=== PATIENT | male | born 1935 | race Caucasian/White ===

== ENCOUNTER 2020-02-24 10:40 | Outpatient (REF) | payer MEDICARE, SELFPAY | END 2020-02-24 10:41 | disposition home or self-care (01) | LOC: HO.LNP 10:40 | PROVIDERS: Visit Provider Family Medicine | DX: I10 Essential (primary) hypertension (principal) | CPT/HCPCS: 82043 ==

== ENCOUNTER → 2020-02-26 08:00 | Outpatient (BNVA) | payer MEDICARE, SELFPAY | PROVIDERS: PCP Family Medicine; Visit Provider Internal Medicine | DX: I48.91 Unspecified atrial fibrillation (principal); Z51.81 Encounter for therapeutic drug level monitoring; Z79.01 Long term (current) use of anticoagulants | CPT/HCPCS: 85610; 99211 ==

== ENCOUNTER 2020-03-04 09:13 | Outpatient (REF) | payer MEDICARE, SELFPAY | END 2020-03-04 09:14 | disposition home or self-care (01) | LOC: HO.LAB 09:13 | PROVIDERS: PCP Family Medicine; Visit Provider Internal Medicine | DX: Z20.828 Contact with and (suspected) exposure to other viral communicable diseases (principal) | CPT/HCPCS: 87635 ==

== ENCOUNTER → 2020-03-25 07:53 | Outpatient (BNVA) | payer MEDICARE, SELFPAY | PROVIDERS: PCP Family Medicine; Visit Provider Internal Medicine | DX: I48.0 Paroxysmal atrial fibrillation (principal); Z51.81 Encounter for therapeutic drug level monitoring; Z79.01 Long term (current) use of anticoagulants | CPT/HCPCS: 85610; 99211 ==

== ENCOUNTER → 2020-04-07 07:33 | Outpatient (BNVA) | payer MEDICARE, SELFPAY | PROVIDERS: PCP Family Medicine; Referring Provider Family Medicine; Visit Provider Internal Medicine | DX: D35.2 Benign neoplasm of pituitary gland (principal); E29.1 Testicular hypofunction; Z87.438 Personal history of other diseases of male genital organs | CPT/HCPCS: Q3014 ==

== ENCOUNTER 2020-04-08 06:40 | Outpatient (REF) | payer MEDICARE, SELFPAY ==
[2020-04-08 07:41] LABS: Anion Gap 11 (12-20); Blood Urea Nitrogen 26 mg/dL (9-16); Calcium 8.9 mg/dL (8.4-10.2); Carbon Dioxide 32 mmol/L (22-29); Chloride 106 mmol/L (96-108); Estimated Glomerular Filt Rate 44; Glucose Random 156 mg/dL (60-115); Potassium 4.7 mmol/l (3.3-5.1); Sodium 144 mmol/L (135-145)
[2020-04-08 08:07] LABS: Free T4 (Free Thyroxine) 1.26 ng/dL (0.71-1.85); Thyroid Stimulating Hormone 4.32 uIU/mL (0.32-4.0)
[2020-04-09 22:12] LABS: Adrenocorticotropic Hormone 24 pg/mL (6-50)
[2020-04-13 08:32] LABS: Prolactin Undiluted 8.3 ng/mL (2.0-18.0)
[2020-04-14 23:13] LABS: Estradiol Ultra Sensitive 21 pg/mL (< OR = 29)
[2020-04-15 12:27] LABS: Testosterone, Free 25.9 pg/mL (30.0-135.0); Testosterone, Total 202 ng/dL (250-1100)
[2020-04-15 14:48] LABS: IGF-1 (Somatomedin C) 89 ng/mL (34-246); IGF-1 Z Score (Male) -0.2 SD (-2.0 - +2.0)
== END 2020-04-08 06:41 | disposition home or self-care (01) ==
LOC: HO.LAB 06:40
PROVIDERS: PCP Family Medicine; Visit Provider Internal Medicine
DX: D35.2 Benign neoplasm of pituitary gland (principal)
CPT/HCPCS: 80048; 82024; 82533; 82670; 83001; 83002; 84146; 84270; 84305; 84402; 84403; 84439; 84443; 84480

== ENCOUNTER 2020-04-09 06:47 | Outpatient (REF) | payer MEDICARE, SELFPAY ==
[2020-04-10 10:38] LABS: Lutenizing Hormone 30.3 mIU/mL (1.6-15.2); Triiodothyronine T3 Total 69 ng/dL (76-181)
[2020-04-13 02:48] LABS: Sex Hormone Binding Globulin 57 nmol/L (22-77)
== END 2020-04-09 06:48 | disposition home or self-care (01) ==
LOC: HO.LAB 06:47
PROVIDERS: PCP Family Medicine; Visit Provider Internal Medicine
DX: D35.2 Benign neoplasm of pituitary gland (principal)
CPT/HCPCS: 83002; 84270; 84480

== ENCOUNTER → 2020-04-21 08:02 | Outpatient (BNVA) | payer MEDICARE, SELFPAY | PROVIDERS: PCP Family Medicine; Visit Provider Internal Medicine | DX: I48.0 Paroxysmal atrial fibrillation (principal); Z51.81 Encounter for therapeutic drug level monitoring; Z79.01 Long term (current) use of anticoagulants | CPT/HCPCS: 85610; 99211 ==

== ENCOUNTER → 2020-04-28 08:30 | Outpatient (BNVA) | payer MEDICARE, SELFPAY | PROVIDERS: PCP Family Medicine; Visit Provider Internal Medicine | DX: I48.0 Paroxysmal atrial fibrillation (principal); Z51.81 Encounter for therapeutic drug level monitoring; Z79.01 Long term (current) use of anticoagulants | CPT/HCPCS: 85610; 99211 ==

== ENCOUNTER → 2020-05-12 08:22 | Outpatient (BNVA) | payer MEDICARE, SELFPAY | PROVIDERS: PCP Family Medicine; Visit Provider Internal Medicine | DX: I48.91 Unspecified atrial fibrillation (principal); Z51.81 Encounter for therapeutic drug level monitoring; Z79.01 Long term (current) use of anticoagulants | CPT/HCPCS: 85610; 99211 ==

== ENCOUNTER → 2020-05-26 08:56 | Outpatient (BNVA) | payer MEDICARE, SELFPAY | PROVIDERS: PCP Family Medicine; Visit Provider Internal Medicine | DX: I48.0 Paroxysmal atrial fibrillation (principal); Z51.81 Encounter for therapeutic drug level monitoring; Z79.01 Long term (current) use of anticoagulants | CPT/HCPCS: 85610; 99211 ==

== ENCOUNTER → 2020-05-31 13:32 | Outpatient (BNVA) | payer MEDICARE, SELFPAY | PROVIDERS: PCP Family Medicine; Visit Provider Internal Medicine | DX: Z76.89 Persons encountering health services in other specified circumstances (principal) | CPT/HCPCS: Q3014 ==

== ENCOUNTER 2020-06-03 06:34 | Outpatient (REF) | payer MEDICARE, SELFPAY ==
[2020-06-03 08:05] LABS: Free T4 (Free Thyroxine) 1.08 ng/dL (0.71-1.85); Thyroid Stimulating Hormone 1.39 uIU/mL (0.32-4.0)
[2020-06-04 18:27] LABS: Prolactin 5.4 ng/mL (2.0-18.0); Triiodothyronine T3 Total 77 ng/dL (76-181)
[2020-06-04 22:02] LABS: Sex Hormone Binding Globulin 61 nmol/L (22-77)
[2020-06-04 23:56] LABS: Adrenocorticotropic Hormone <5 pg/mL (6-50)
[2020-06-07 18:28] LABS: Testosterone, Free 21.9 pg/mL (30.0-135.0); Testosterone, Total 235 ng/dL (250-1100)
[2020-06-09 10:22] LABS: Dexamethasone 499 ng/dL
== END 2020-06-03 06:35 | disposition home or self-care (01) ==
LOC: HO.LAB 06:34
PROVIDERS: PCP Family Medicine; Visit Provider Internal Medicine
DX: R79.89 Other specified abnormal findings of blood chemistry (principal); E03.9 Hypothyroidism, unspecified; D35.2 Benign neoplasm of pituitary gland; E29.1 Testicular hypofunction
CPT/HCPCS: 36415; 80299; 82024; 82533; 84146; 84270; 84402; 84403; 84439; 84443; 84480

== ENCOUNTER → 2020-06-04 07:59 | Outpatient (BNVA) | payer MEDICARE, SELFPAY | PROVIDERS: PCP Family Medicine; Visit Provider Internal Medicine | DX: I48.0 Paroxysmal atrial fibrillation (principal); Z51.81 Encounter for therapeutic drug level monitoring; Z79.01 Long term (current) use of anticoagulants | CPT/HCPCS: 85610; 99211 ==

== ENCOUNTER → 2020-06-18 07:57 | Outpatient (BNVA) | payer MEDICARE, SELFPAY | PROVIDERS: PCP Family Medicine; Visit Provider Internal Medicine | DX: I48.0 Paroxysmal atrial fibrillation (principal); Z51.81 Encounter for therapeutic drug level monitoring; Z79.01 Long term (current) use of anticoagulants | CPT/HCPCS: 85610; 99211 ==

== ENCOUNTER → 2020-07-02 07:59 | Outpatient (BNVA) | payer MEDICARE, SELFPAY | PROVIDERS: PCP Family Medicine; Visit Provider Internal Medicine | DX: I48.0 Paroxysmal atrial fibrillation (principal); Z51.81 Encounter for therapeutic drug level monitoring; Z79.01 Long term (current) use of anticoagulants | CPT/HCPCS: 85610; 99211 ==

== ENCOUNTER → 2020-07-23 08:00 | Outpatient (BNVA) | payer MEDICARE, SELFPAY | PROVIDERS: PCP Family Medicine; Visit Provider Internal Medicine | DX: I48.0 Paroxysmal atrial fibrillation (principal); Z51.81 Encounter for therapeutic drug level monitoring; Z79.01 Long term (current) use of anticoagulants | CPT/HCPCS: 85610; 99211 ==

== ENCOUNTER 2020-07-23 15:29 | Outpatient (REF) | payer MEDICARE, SELFPAY | END 2020-07-23 15:30 | disposition home or self-care (01) | LOC: HO.LAB 15:29 | PROVIDERS: Visit Provider Internal Medicine | DX: Z20.822 Contact with and (suspected) exposure to COVID-19 (principal) | CPT/HCPCS: 36415; C9803; U0003; U0005 ==

== ENCOUNTER → 2020-08-02 07:35 | Outpatient (BNVA) | payer MEDICARE, SELFPAY | PROVIDERS: PCP Family Medicine; Visit Provider Internal Medicine | DX: Z13.89 Encounter for screening for other disorder (principal) | CPT/HCPCS: Q3014 ==

== ENCOUNTER 2020-08-06 06:31 | Outpatient (REF) | payer MEDICARE, SELFPAY ==
[2020-08-09 15:12] LABS: Adrenocorticotropic Hormone 34 pg/mL (6-50)
[2020-08-10 21:02] LABS: Dexamethasone <20 ng/dL
== END 2020-08-06 06:32 | disposition home or self-care (01) ==
LOC: HO.LAB 06:31
PROVIDERS: PCP Family Medicine; Visit Provider Internal Medicine
DX: E24.0 Pituitary-dependent Cushing's disease (principal)
CPT/HCPCS: 36415; 80299; 82024; 82533

== ENCOUNTER 2020-08-07 07:02 | Outpatient (REF) | payer MEDICARE, SELFPAY ==
[2020-08-09 15:12] LABS: Adrenocorticotropic Hormone <5 pg/mL (6-50)
== END 2020-08-07 07:03 | disposition home or self-care (01) ==
LOC: HO.LAB 07:02
PROVIDERS: Internal Medicine; PCP Family Medicine; Visit Provider Family Medicine
DX: E24.0 Pituitary-dependent Cushing's disease (principal)
CPT/HCPCS: 36415; 82024; 82533

== ENCOUNTER → 2020-08-13 08:00 | Outpatient (BNVA) | payer MEDICARE, SELFPAY | PROVIDERS: PCP Family Medicine; Visit Provider Internal Medicine | DX: I48.0 Paroxysmal atrial fibrillation (principal); Z79.01 Long term (current) use of anticoagulants; Z51.81 Encounter for therapeutic drug level monitoring | CPT/HCPCS: 85610; 99211 ==

== ENCOUNTER 2020-09-02 06:43 | Outpatient (REF) | payer MEDICARE, SELFPAY ==
[2020-09-02 07:58] LABS: Alanine Aminotransferase 21 U/L (0-40); Albumin Level 4.1 g/dL (3.5-5.0); Alkaline Phosphatase 99 U/L (39-117); Anion Gap 11 (12-20); Aspartate Amino Transferase 19 U/L (5-37); Bilirubin Total 0.5 mg/dL (0.0-1.0); Blood Urea Nitrogen 28 mg/dL (9-16); Calcium 9.4 mg/dL (8.4-10.2); Carbon Dioxide 29 mmol/L (22-29); Chloride 108 mmol/L (96-108); Cholesterol 151 mg/dL; Estimated Glomerular Filt Rate 46; Glucose Fasting 158 mg/dL (60-99); HDL Cholesterol 34 mg/dL; LDL Cholesterol Calculated 93 mg/dl; Potassium 4.4 mmol/L (3.3-5.1); Sodium 144 mmol/L (135-145); Total Protein 6.7 g/dL (6.5-8.0); Triglycerides 124 mg/dL
[2020-09-02 08:04] LABS: TSH reflex Free T4 1.35 uIU/mL (0.32-4.0)
[2020-09-02 09:54] LABS: Creatinine Urine 167.04 mg/dL; Microalbum/Creatinine Ratio Ur 49.6 ug/mg cr
== END 2020-09-02 06:44 | disposition home or self-care (01) ==
LOC: HO.LAB 06:43
PROVIDERS: PCP Family Medicine; Visit Provider Family Medicine
DX: Z00.00 Encounter for general adult medical examination without abnormal findings (principal); I10 Essential (primary) hypertension
CPT/HCPCS: 36415; 80053; 80061; 82043; 84443

== ENCOUNTER → 2020-09-13 08:30 | Outpatient (BNVA) | payer MEDICARE, SELFPAY | PROVIDERS: PCP Family Medicine; Visit Provider Internal Medicine | DX: I48.0 Paroxysmal atrial fibrillation (principal); Z79.01 Long term (current) use of anticoagulants; Z51.81 Encounter for therapeutic drug level monitoring | CPT/HCPCS: 85610; 99211 ==

== ENCOUNTER → 2020-09-23 13:34 | Outpatient (BNVA) | payer MEDICARE, SELFPAY | PROVIDERS: PCP Family Medicine; Referring Provider Family Medicine; Visit Provider Internal Medicine Cardiovascular Disease | DX: I48.91 Unspecified atrial fibrillation (principal); I10 Essential (primary) hypertension; Z79.899 Other long term (current) drug therapy | CPT/HCPCS: 93005; 99212 ==

== ENCOUNTER → 2020-10-12 09:22 | Outpatient (BNVA) | payer MEDICARE, SELFPAY | PROVIDERS: PCP Family Medicine; Visit Provider Urology | DX: N52.9 Male erectile dysfunction, unspecified (principal); Z87.438 Personal history of other diseases of male genital organs; Z87.898 Personal history of other specified conditions | CPT/HCPCS: 99212 ==

== ENCOUNTER → 2020-10-19 09:01 | Outpatient (BNVA) | payer MEDICARE, SELFPAY | PROVIDERS: PCP Family Medicine; Visit Provider Internal Medicine | DX: I48.0 Paroxysmal atrial fibrillation (principal); Z51.81 Encounter for therapeutic drug level monitoring; Z79.01 Long term (current) use of anticoagulants | CPT/HCPCS: 85610; 99211 ==

== ENCOUNTER → 2020-11-16 08:04 | Outpatient (BNVA) | payer MEDICARE, SELFPAY | PROVIDERS: PCP Family Medicine; Visit Provider Internal Medicine | DX: I48.0 Paroxysmal atrial fibrillation (principal); Z51.81 Encounter for therapeutic drug level monitoring; Z79.01 Long term (current) use of anticoagulants | CPT/HCPCS: 85610; 99211 ==

== ENCOUNTER → 2020-11-18 07:22 | Outpatient (BNVA) | payer MEDICARE, SELFPAY | PROVIDERS: PCP Family Medicine; Visit Provider Internal Medicine | DX: Z13.89 Encounter for screening for other disorder (principal) | CPT/HCPCS: Q3014 ==

== ENCOUNTER 2020-11-20 08:28 | Outpatient (REF) | payer MEDICARE, SELFPAY ==
[2020-11-20 10:13] LABS: Creatinine, mg/dL 94.08
[2020-11-20 14:26] LABS: Creatinine, 24Hr Urine 0.8 G/Day (1.0-2.0); Total Volume 24 Hour Urine 800 mL
[2020-11-24 11:22] LABS: Total Volume, 24 Hr Urine 800
[2020-11-24 21:21] LABS: Cortisol Free, 24 Hr Urine 8.1 mcg/24 h (4.0-50.0); Creatinine, 24 Hr Urine 0.75 g/24 h (0.50-2.15)
[2020-11-25 22:07] LABS: Saliva Cortisol 0.05 mcg/dL
== END 2020-11-20 08:29 | disposition home or self-care (01) ==
LOC: HO.LNP 08:28
PROVIDERS: Visit Provider Internal Medicine
DX: E24.0 Pituitary-dependent Cushing's disease (principal)
CPT/HCPCS: 82530; 82570

== ENCOUNTER → 2020-12-13 12:26 | Outpatient (BNVA) | payer MEDICARE, SELFPAY | PROVIDERS: PCP Family Medicine; Visit Provider Nurse Practitioner Family | DX: I48.91 Unspecified atrial fibrillation (principal); I25.10 Atherosclerotic heart disease of native coronary artery without angina pectoris; I35.0 Nonrheumatic aortic (valve) stenosis; I10 Essential (primary) hypertension; R60.9 Edema, unspecified; Z98.890 Other specified postprocedural states; Z79.01 Long term (current) use of anticoagulants | CPT/HCPCS: 99212 ==

== ENCOUNTER → 2020-12-14 07:58 | Outpatient (BNVA) | payer MEDICARE, SELFPAY | PROVIDERS: PCP Family Medicine; Visit Provider Internal Medicine | DX: I48.0 Paroxysmal atrial fibrillation (principal); Z51.81 Encounter for therapeutic drug level monitoring; Z79.01 Long term (current) use of anticoagulants | CPT/HCPCS: 85610; 99211 ==

== ENCOUNTER 2020-12-24 15:24 | Outpatient (REF) | payer MEDICARE, SELFPAY | END 2020-12-24 15:25 | disposition home or self-care (01) | LOC: HO.LAB 15:24 | PROVIDERS: PCP Family Medicine; Visit Provider Internal Medicine | DX: Z20.822 Contact with and (suspected) exposure to COVID-19 (principal) | CPT/HCPCS: C9803; U0003; U0005 ==

== ENCOUNTER → 2021-01-11 08:14 | Outpatient (BNVA) | payer MEDICARE, SELFPAY | PROVIDERS: PCP Family Medicine; Visit Provider Internal Medicine | DX: I48.0 Paroxysmal atrial fibrillation (principal); Z51.81 Encounter for therapeutic drug level monitoring; Z79.01 Long term (current) use of anticoagulants | CPT/HCPCS: 85610; 99211 ==

== ENCOUNTER → 2021-02-08 07:59 | Outpatient (BNVA) | payer MEDICARE, SELFPAY | PROVIDERS: PCP Family Medicine; Visit Provider Internal Medicine | DX: I48.0 Paroxysmal atrial fibrillation (principal); Z51.81 Encounter for therapeutic drug level monitoring; Z79.01 Long term (current) use of anticoagulants | CPT/HCPCS: 85610; 99211 ==

== ENCOUNTER → 2021-02-24 12:31 | Outpatient (BNVA) | payer MEDICARE, SELFPAY | PROVIDERS: PCP Family Medicine; Visit Provider Internal Medicine | DX: E29.1 Testicular hypofunction (principal); E03.9 Hypothyroidism, unspecified; E24.0 Pituitary-dependent Cushing's disease; D35.2 Benign neoplasm of pituitary gland; Z87.438 Personal history of other diseases of male genital organs | CPT/HCPCS: 99212 ==

== ENCOUNTER 2021-02-27 | Outpatient (REF) | payer MEDICARE, SELFPAY ==
[2021-03-04 19:57] LABS: Saliva Cortisol 0.11 mcg/dL
== END 2021-02-27 00:01 | disposition home or self-care (01) ==
LOC: HO.LNP
PROVIDERS: Visit Provider Internal Medicine
DX: E24.0 Pituitary-dependent Cushing's disease (principal)
CPT/HCPCS: 82530

== ENCOUNTER → 2021-03-08 07:56 | Outpatient (BNVA) | payer MEDICARE, SELFPAY | PROVIDERS: PCP Family Medicine; Visit Provider Internal Medicine | DX: I48.0 Paroxysmal atrial fibrillation (principal); Z51.81 Encounter for therapeutic drug level monitoring; Z79.01 Long term (current) use of anticoagulants | CPT/HCPCS: 85610; 99211 ==

== ENCOUNTER 2021-03-16 10:08 | Outpatient (REF) | payer MEDICARE, SELFPAY | END 2021-03-16 10:09 | disposition home or self-care (01) | LOC: HO.LAB 10:08 | PROVIDERS: Visit Provider Internal Medicine | DX: Z13.89 Encounter for screening for other disorder (principal) ==

== ENCOUNTER 2021-03-20 | Outpatient (REF) | payer MEDICARE, SELFPAY ==
[2021-03-26 19:12] LABS: Saliva Cortisol <0.03 mcg/dL
== END 2021-03-20 00:01 | disposition home or self-care (01) ==
LOC: HO.LNP
PROVIDERS: Visit Provider Internal Medicine
DX: E24.0 Pituitary-dependent Cushing's disease (principal)
CPT/HCPCS: 82530

== ENCOUNTER → 2021-03-24 14:24 | Outpatient (BNVA) | payer MEDICARE, SELFPAY | PROVIDERS: PCP Family Medicine; Referring Provider Family Medicine; Visit Provider Internal Medicine Cardiovascular Disease | DX: I48.91 Unspecified atrial fibrillation (principal); R60.9 Edema, unspecified | CPT/HCPCS: 93005; 99212 ==

== ENCOUNTER 2021-03-25 07:20 | Outpatient (REF) | payer MEDICARE, SELFPAY | END 2021-03-25 07:21 | disposition home or self-care (01) | LOC: HO.WFDLDS 07:20 | PROVIDERS: Visit Provider Urology | DX: Z12.5 Encounter for screening for malignant neoplasm of prostate (principal); N40.1 Benign prostatic hyperplasia with lower urinary tract symptoms; N13.8 Other obstructive and reflux uropathy | CPT/HCPCS: 36415; 84153 ==

== ENCOUNTER 2021-04-05 08:29 | Outpatient (REF) | payer MEDICARE, SELFPAY ==
--- NOTE | ~2021-04-05 | CT_ITS ---
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 Axial MIP volume rendering provided. Sagittal and coronal reformatted images were obtained. This CT examination was performed using dose optimization techniques as appropriate, variously including the following: *Automated exposure control *Adjustment of mA and/or kV according to patient size (this includes techniques or standardized protocols for targeted exams where dose is matched to indication/reason for exam; i.e. 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 LUNGS: There is evidence of mild paraseptal emphysema. There is a 3 mm right upper lobe nodule axial image 35 series 6. There is a 2 mm noncalcified left upper lobe nodule axial image 45 series 6. There is a 2 mm noncalcified right upper lobe nodule axial image 48 series 6. There is a 2 mm right upper lobe nodule axial image 66 series 6. There is a 3 mm calcified superior segment right lower lobe nodule axial image 70 series 6. There is an 8 mm calcified left upper lobe nodule axial image 72 series 6. There is an adjacent 2 mm calcified left upper lobe nodule axial image 78 series 6. There is a 4 mm peripheral or subpleural noncalcified right middle lobe nodule axial image 94 series 6. There is a 3 mm noncalcified left lower lobe nodule axial image 69 series 6. Pulmonary nodules are stable. The previously identified areas of bronchial wall thickening and airspace disease on July 2016 exam have resolved. MEDIASTINUM: There is bilateral hilar and mediastinal lymphadenopathy. This appears slightly increased from previous exam. Largest lymph nodes are in the right paratracheal and right hilar regions and are upper normal in size. There is a calcified left hilar lymph node that is stable. The heart does not appear enlarged. There is coronary artery calcification. There is a small pericardial effusion. The thoracic aorta is normal in caliber. PLEURA: There is no pleural effusion. No pleural mass or thickening. AXILLA: No lymphadenopathy. UPPER ABDOMEN: There are multiple bilateral renal cysts. There is fullness and nodularity of both adrenal glands. There are gallstones in the gallbladder. OSSEOUS STRUCTURES: There are degenerative changes of the spine. CT/CT chest w con IMPRESSION: Evidence of old granulomatous disease. Stable calcified and noncalcified pulmonary nodules. Upper normal-size bilateral hilar and mediastinal lymph nodes, slightly increased from 2017. Elevated right hemidiaphragm. Coronary artery calcification. Gallstones. Bilateral renal cysts. Nodular appearing bilateral adrenal glands. Fleischner guidelines were followed.
[2021-04-05 09:33] LABS: Estimated Average Glucose 171 mg/dL; Hemoglobin A1c % 7.6 %
[2021-04-05 10:02] LABS: Alanine Aminotransferase 28 U/L (0-40); Albumin Level 4.3 g/dL (3.5-5.0); Alkaline Phosphatase 113 U/L (39-117); Anion Gap 13 (12-20); Aspartate Amino Transferase 23 U/L (5-37); Blood Urea Nitrogen 36 mg/dL (9-16); Carbon Dioxide 30 mmol/L (22-29); Chloride 105 mmol/L (96-108); Estimated Glomerular Filt Rate 40; Glucose Fasting 166 mg/dL (60-99); Potassium 4.3 mmol/L (3.3-5.1); Sodium 144 mmol/L (135-145)
[2021-04-05] MEDS: iohexoL 350 MG/ML 100 ML INFUS..BTL IV (10:47)
== END 2021-04-05 08:30 | disposition home or self-care (01) ==
LOC: HO.CT 08:29
PROVIDERS: Family Medicine; Visit Provider Internal Medicine
DX: Z00.00 Encounter for general adult medical examination without abnormal findings (principal); I48.0 Paroxysmal atrial fibrillation; R73.01 Impaired fasting glucose; E24.0 Pituitary-dependent Cushing's disease; Z51.81 Encounter for therapeutic drug level monitoring; Z79.01 Long term (current) use of anticoagulants
CPT/HCPCS: 36415; 71260; 80053; 83036; 85610; 99211; Q9967

== ENCOUNTER → 2021-04-12 08:22 | Outpatient (BNVA) | payer MEDICARE, SELFPAY | PROVIDERS: PCP Family Medicine; Visit Provider Internal Medicine | DX: I48.0 Paroxysmal atrial fibrillation (principal); Z51.81 Encounter for therapeutic drug level monitoring; Z79.01 Long term (current) use of anticoagulants | CPT/HCPCS: 85610; 99211 ==

== ENCOUNTER → 2021-04-15 14:18 | Outpatient (BNVA) | payer MEDICARE, SELFPAY | PROVIDERS: PCP Family Medicine; Visit Provider Internal Medicine | DX: I48.0 Paroxysmal atrial fibrillation (principal); Z51.81 Encounter for therapeutic drug level monitoring; Z79.01 Long term (current) use of anticoagulants | CPT/HCPCS: 85610; 99211 ==

== ENCOUNTER → 2021-04-19 08:20 | Outpatient (BNVA) | payer MEDICARE, SELFPAY | PROVIDERS: PCP Family Medicine; Visit Provider Internal Medicine | DX: I48.0 Paroxysmal atrial fibrillation (principal); Z51.81 Encounter for therapeutic drug level monitoring; Z79.01 Long term (current) use of anticoagulants | CPT/HCPCS: 85610; 99211 ==

== ENCOUNTER → 2021-04-21 09:50 | Outpatient (BNVA) | payer MEDICARE, SELFPAY | PROVIDERS: PCP Family Medicine; Visit Provider Urology | DX: N40.1 Benign prostatic hyperplasia with lower urinary tract symptoms (principal); N13.8 Other obstructive and reflux uropathy; N52.1 Erectile dysfunction due to diseases classified elsewhere; E11.69 Type 2 diabetes mellitus with other specified complication | CPT/HCPCS: Q3014 ==

== ENCOUNTER 2021-04-25 08:12 | Outpatient (REF) | payer MEDICARE, SELFPAY ==
[2021-04-25 12:00] LABS: COVID-19 Test Negative (Negative)
== END 2021-04-25 08:13 | disposition home or self-care (01) ==
LOC: HO.LAB 08:12
PROVIDERS: Visit Provider Internal Medicine
DX: Z20.822 Contact with and (suspected) exposure to COVID-19 (principal)
CPT/HCPCS: 36415; 87635; C9803

== ENCOUNTER → 2021-05-03 07:58 | Outpatient (BNVA) | payer MEDICARE, SELFPAY | PROVIDERS: PCP Family Medicine; Visit Provider Internal Medicine | DX: I48.0 Paroxysmal atrial fibrillation (principal); Z51.81 Encounter for therapeutic drug level monitoring; Z79.01 Long term (current) use of anticoagulants | CPT/HCPCS: 85610; 99211 ==

== ENCOUNTER → 2021-05-12 09:50 | Outpatient (REF) | payer MEDICARE, SELFPAY ==
--- NOTE | 2021-05-12 09:58 | CA_ITS ---
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 Normal LV systolic function with suggestion of increased LVEDP 2. Moderately dilated left atrium 3. [id number] aortic stenosis 4. Normal calculated RV systolic pressure 5. No gross pericardial effusion Findings Left Ventricle Normal left ventricular size and systolic function. There is mildly increased left ventricular wall thickness. The visually estimated ejection fraction is between 55-60%. Elevated left ventricular end diastolic pressure. Right Ventricle Normal right ventricular cavity size and systolic function. Atria The left atrium is moderately dilated. There is no evidence of interatrial shunt. The right atrium is moderately dilated. Aortic Valve There is mild calcification of the aortic valve. There is mild to moderate aortic valve stenosis. The peak aortic gradient is 16 mmHg.The mean gradient is 9 mmHg. The aortic valve area is 1.45 cm2. There is no aortic valve regurgitation. Mitral Valve There is mild anterior and moderate posterior mitral leaflet thickening. There is mild mitral annular calcification. There is mild mitral valve regurgitation. There is no mitral valve stenosis. Pulmonic Valve The pulmonic valve was not well visualized. Tricuspid Valve Likely normal tricuspid valve structure and function. There is mild tricuspid valve regurgitation. The right ventricular systolic pressure is normal. The right ventricular systolic pressure is 29 mmHg. Normal right atrial pressure. There is no evidence of pulmonary hypertension. Great Vessels All visible segments of the aorta are normal in size. The pulmonary artery was not well visualized. Venous The inferior vena cava is normal in size and collapses greater than 50% with inspiration. Pericardium/Pleural There is a trivial loculated pericardial effusion overlying the left ventricle. Prior Study Comparison Changes noted compared to prior study dated: 03/06/2019. RV systolic pressure is normal on this study Measurements 2D Linear Measurements IVSd: 1.22 0.6-0.9/0.6-1.0 cm LVIDd: 4.01 3.9-5.3/4.2-5.9 cm LVIDd Index: 2.17 2.4-3.2/2.2-3.1 cm/m2 LVIDs: 2.17 2.0-3.6 cm LVPWd: 1.30 0.7-1.1 cm Ao Root: 3.00 2.1-3.5 cm LA Diam: 4.30 2.7-3.8/3.0-4.0 cm LAIDs Index: 2.32 1.5-2.3 cm/m2 LV Mass: 222.52 67-162/88-224 g LV Mass Index: 120.28 43-95/49-115 g/m2 LVOT Diam: 2.00 3.0+(-)1.3 cm 2D Systolic Function EF 4C: 59.00 >55% EF 2C: 55.30 >55% EF BiP: 57.90 >55% Mitral Valve MV Pk E: 1.06 MV PK A: 0.36 MV Decel Time: 194.00 E/A: 2.90 E'Lateral: 7.29 E'Medial: 5.66 E/E' Med: 18.70 E/E' Lat: 14.50 PHT: 57.00 MVA PHT: 3.86 Decel Henderson: 5.46 Aortic Valve AoV Pk Avelino: 2.02 AoV Mn Avelino: 1.39 AoV VTI: 0.52 AoV Pk Grad: 16.00 Aov Mn Grad: 9.00 RASHID Cont.VTI: 1.45 LVOT LVOT Pk Avelino: 0.84 LVOT Mn Avelino: 0.67 LVOT VTI: 0.24 LVOT Pk Grad: 3.00 LVOT Mn Grad: 2.00 LVOT Diam: 2.00 LVOT Area: 3.14 Diastolic Function MV Pk E: 1.06 MV Pk A: 0.36 E/A: 2.90 E'Medial: 5.66 E/E' Med: 18.70 E' Laterial: 7.29 E/E' Lat: 14.50 Right Ventricle TAPSE (mm): 16.60 TVS' Avelino: 9.36 Tricuspid Valve TR Pk Avelino: 2.54 TR Pk Grad: 26.00 RA Press: 3.00 RVSP: 29.00 Great Vessels Aorta Ao Root-2D: 3.00 2.0-3.7 cm Ao Asc: 3.00 2.1-3.4 cm Ao Arch: 2.90 Updated in Other Vendor System with Status of Final Clifton Mota MD electronically signed on 05/12/2021 2:01:56 PM with status of Final
== END ==
LOC: HO.CARD 09:50
PROVIDERS: Visit Provider Nurse Practitioner Family
DX: I35.0 Nonrheumatic aortic (valve) stenosis (principal); I25.10 Atherosclerotic heart disease of native coronary artery without angina pectoris
CPT/HCPCS: 93306

== ENCOUNTER → 2021-05-17 07:58 | Outpatient (BNVA) | payer MEDICARE, SELFPAY | PROVIDERS: PCP Family Medicine; Visit Provider Internal Medicine | DX: I48.0 Paroxysmal atrial fibrillation (principal); Z51.81 Encounter for therapeutic drug level monitoring; Z79.01 Long term (current) use of anticoagulants | CPT/HCPCS: 85610; 99211 ==

== ENCOUNTER → 2021-05-26 13:45 | Outpatient (BNVA) | payer MEDICARE, SELFPAY | PROVIDERS: PCP Family Medicine; Visit Provider Hospitalist | DX: R91.8 Other nonspecific abnormal finding of lung field (principal); J98.6 Disorders of diaphragm | CPT/HCPCS: 99202 ==

== ENCOUNTER → 2021-05-31 08:00 | Outpatient (BNVA) | payer MEDICARE, SELFPAY | PROVIDERS: PCP Family Medicine; Visit Provider Internal Medicine | DX: I48.0 Paroxysmal atrial fibrillation (principal); Z51.81 Encounter for therapeutic drug level monitoring; Z79.01 Long term (current) use of anticoagulants | CPT/HCPCS: 85610; 99211 ==

== ENCOUNTER 2021-05-31 12:41 | Outpatient (REF) | payer MEDICARE, SELFPAY ==
[2021-05-31 13:19] LABS: Binax Internal Control QC Valid; Binax Now Covid-19 Ag Negative (Negative)
== END 2021-05-31 12:42 | disposition home or self-care (01) ==
LOC: HO.LAB 12:41
PROVIDERS: Visit Provider Internal Medicine
DX: Z20.822 Contact with and (suspected) exposure to COVID-19 (principal)
CPT/HCPCS: C9803

== ENCOUNTER 2021-06-08 06:37 | Outpatient (REF) | payer MEDICARE, SELFPAY ==
[2021-06-08 07:05] LABS: MANUAL DIFF FLAG NO
[2021-06-08 07:08] LABS: Basophils Percent Auto 0.5 % (0-2); Eosinophils Absolute Auto 0.3 X10*3/uL (0.0-0.4); Eosinophils Percent Auto 3.5 % (0-4); Hematocrit 38.4 % (42.0-52.0); Hemoglobin 12.9 g/dl (14.0-18.0); Imm Gran Abs Auto 0.02 X10*3/uL (0.00-0.03); Imm Gran Pct Auto 0.3 % (0.0-0.4); Lymphocytes Absolute Auto 1.4 X10*3/uL (1.2-4.9); Mean Corpuscular HGB Conc 33.6 g/dl (31.0-36.0); Mean Corpuscular Hemoglobin 35.3 pg (27.0-33.0); Mean Corpuscular Volume 105.2 fL (80.0-98.0); Mean Platelet Volume 11.5 fL (9.4-12.4); Monocytes Absolute Auto 0.6 X10*3/uL (0.1-1.2); Monocytes Percent Auto 7.5 % (2-11); Neutrophils Absolute Auto 5.1 x10*3/uL (2.0-8.3); Neutrophils Percent Auto 69.2 % (45-73); Platelet Count 159 X10*3/uL (160-400); Red Blood Count 3.65 X10*6/uL (4.60-5.80); Red Cell Distribution Width 13.2 % (11.0-16.0); White Blood Count 7.4 X10*3/uL (4.8-10.8)
[2021-06-08 07:26] LABS: Anion Gap 10 (12-20); Blood Urea Nitrogen 36 mg/dL (9-16); Calcium 9.5 mg/dL (8.4-10.2); Carbon Dioxide 31 mmol/L (22-29); Chloride 107 mmol/L (96-108); Estimated Glomerular Filt Rate 43; Glucose Random 172 mg/dL (60-115); Potassium 4.4 mmol/L (3.3-5.1); Sodium 144 mmol/L (135-145)
[2021-06-08 08:27] LABS: Cortisol Random 17.8 ug/dL
[2021-06-08 08:31] LABS: Erythrocyte Sedimentation Rate 13 MM/HR (0-15)
[2021-06-09 17:52] LABS: Adrenocorticotropic Hormone 30 pg/mL (6-50)
[2021-06-10 03:12] LABS: DHEA Sulfate 18 mcg/dL (5-253)
[2021-06-11 19:56] LABS: TS Negative Control Passed; TS Panel A 5; TS Panel B 15; TS Positive Control Passed; TSpotTB Positive (Negative)
[2021-06-14 21:25] LABS: Angiotensin Converting Enzyme <5 U/L (9-67)
== END 2021-06-08 06:38 | disposition home or self-care (01) ==
LOC: HO.LAB 06:37
PROVIDERS: Hospitalist; PCP Family Medicine; Visit Provider Internal Medicine
DX: Z11.1 Encounter for screening for respiratory tuberculosis (principal); E24.0 Pituitary-dependent Cushing's disease; R91.8 Other nonspecific abnormal finding of lung field
CPT/HCPCS: 36415; 80048; 82024; 82164; 82533; 82627; 85025; 85652; 86481

== ENCOUNTER 2021-06-09 08:33 | Outpatient (REF) | payer MEDICARE, SELFPAY ==
[2021-06-15 13:48] LABS: Saliva Cortisol 0.03 mcg/dL
== END 2021-06-09 08:34 | disposition home or self-care (01) ==
LOC: HO.LNP 08:33
PROVIDERS: Visit Provider Internal Medicine
DX: E24.0 Pituitary-dependent Cushing's disease (principal)
CPT/HCPCS: 82530

== ENCOUNTER → 2021-06-15 12:19 | Outpatient (BNVA) | payer MEDICARE, SELFPAY | PROVIDERS: PCP Family Medicine; Visit Provider Internal Medicine | DX: E24.0 Pituitary-dependent Cushing's disease (principal); E29.1 Testicular hypofunction; E03.9 Hypothyroidism, unspecified; D35.2 Benign neoplasm of pituitary gland; Z87.438 Personal history of other diseases of male genital organs | CPT/HCPCS: Q3014 ==

== ENCOUNTER → 2021-06-16 08:03 | Outpatient (BNVA) | payer MEDICARE, SELFPAY | PROVIDERS: PCP Family Medicine; Visit Provider Internal Medicine | DX: I48.0 Paroxysmal atrial fibrillation (principal); Z51.81 Encounter for therapeutic drug level monitoring; Z79.01 Long term (current) use of anticoagulants | CPT/HCPCS: 85610; 99211 ==

== ENCOUNTER → 2021-06-24 09:17 | Outpatient (BNVA) | payer MEDICARE, SELFPAY | PROVIDERS: PCP Family Medicine; Visit Provider Internal Medicine | DX: I48.0 Paroxysmal atrial fibrillation (principal); Z51.81 Encounter for therapeutic drug level monitoring; Z79.01 Long term (current) use of anticoagulants | CPT/HCPCS: 85610; 99211 ==

== ENCOUNTER 2021-06-28 08:46 | Outpatient (REF) | payer MEDICARE, SELFPAY ==
[2021-06-28 09:27] LABS: COVID-19 Test Negative (Negative)
== END 2021-06-28 08:47 | disposition home or self-care (01) ==
LOC: HO.LAB 08:46
PROVIDERS: PCP Family Medicine; Visit Provider Internal Medicine
DX: Z20.822 Contact with and (suspected) exposure to COVID-19 (principal)
CPT/HCPCS: 87635; C9803

== ENCOUNTER → 2021-07-08 08:43 | Outpatient (BNVA) | payer MEDICARE, SELFPAY | PROVIDERS: PCP Family Medicine; Visit Provider Internal Medicine | DX: I48.0 Paroxysmal atrial fibrillation (principal); Z51.81 Encounter for therapeutic drug level monitoring; Z79.01 Long term (current) use of anticoagulants | CPT/HCPCS: 85610; 99211 ==

== ENCOUNTER → 2021-07-22 08:17 | Outpatient (BNVA) | payer MEDICARE, SELFPAY | PROVIDERS: PCP Family Medicine; Visit Provider Internal Medicine | DX: I48.0 Paroxysmal atrial fibrillation (principal); Z79.01 Long term (current) use of anticoagulants; Z51.81 Encounter for therapeutic drug level monitoring | CPT/HCPCS: 85610; 99211 ==

== ENCOUNTER → 2021-08-12 08:15 | Outpatient (BNVA) | payer MEDICARE, SELFPAY | PROVIDERS: PCP Family Medicine; Visit Provider Internal Medicine | DX: I48.0 Paroxysmal atrial fibrillation (principal); Z51.81 Encounter for therapeutic drug level monitoring; Z79.01 Long term (current) use of anticoagulants | CPT/HCPCS: 85610; 99211 ==

== ENCOUNTER → 2021-09-02 07:59 | Outpatient (BNVA) | payer MEDICARE, SELFPAY | PROVIDERS: PCP Family Medicine; Visit Provider Internal Medicine | DX: I48.0 Paroxysmal atrial fibrillation (principal); Z79.01 Long term (current) use of anticoagulants; Z51.81 Encounter for therapeutic drug level monitoring | CPT/HCPCS: 85610; 99211 ==

== ENCOUNTER → 2021-09-16 08:01 | Outpatient (BNVA) | payer MEDICARE, SELFPAY | PROVIDERS: PCP Family Medicine; Visit Provider Internal Medicine | DX: I48.0 Paroxysmal atrial fibrillation (principal); Z79.01 Long term (current) use of anticoagulants; Z51.81 Encounter for therapeutic drug level monitoring | CPT/HCPCS: 85610; 99211 ==

== ENCOUNTER 2021-09-23 06:44 | Outpatient (REF) | payer MEDICARE, SELFPAY ==
[2021-09-23 08:01] LABS: Anion Gap 11 (12-20); Blood Urea Nitrogen 27 mg/dL (9-16); Calcium 9.4 mg/dL (8.4-10.2); Carbon Dioxide 31 mmol/L (22-29); Chloride 108 mmol/L (96-108); Estimated Glomerular Filt Rate 55; Glucose Random 134 mg/dL (60-115); Potassium 4.5 mmol/L (3.3-5.1); Sodium 145 mmol/L (135-145)
[2021-09-23 08:25] LABS: Prostate Specific Antigen 1.66 ng/mL (<0.05-4.0)
[2021-09-23 08:40] LABS: Cortisol Random 18.9 ug/dL
[2021-09-24 08:51] LABS: Follicle Stimulating Hormone 51.6 mIU/mL (1.6-8.0); Lutenizing Hormone 28.7 mIU/mL (1.6-15.2); Prolactin 5.9 ng/mL (2.0-18.0); Sex Hormone Binding Globulin 56 nmol/L (22-77); Triiodothyronine T3 Total 81 ng/dL (76-181)
[2021-09-26 21:56] LABS: Adrenocorticotropic Hormone 14 pg/mL (6-50)
[2021-09-28 10:27] LABS: IGF-1 (Somatomedin C) 102 ng/mL (34-246)
[2021-09-28 15:22] LABS: Testosterone, Free 26.5 pg/mL (30.0-135.0); Testosterone, Total 273 ng/dL (250-1100)
== END 2021-09-23 06:45 | disposition home or self-care (01) ==
LOC: HO.LAB 06:44
PROVIDERS: Urology; PCP Family Medicine; Visit Provider Internal Medicine
DX: Z12.5 Encounter for screening for malignant neoplasm of prostate (principal); N40.1 Benign prostatic hyperplasia with lower urinary tract symptoms; N13.8 Other obstructive and reflux uropathy; E24.0 Pituitary-dependent Cushing's disease
CPT/HCPCS: 36415; 80048; 82024; 82533; 83001; 83002; 84146; 84153; 84270; 84305; 84402; 84403; 84439; 84443; 84480

== ENCOUNTER 2021-09-24 10:58 | Outpatient (REF) | payer MEDICARE, SELFPAY ==
[2021-10-01 19:06] LABS: Saliva Cortisol 0.04 mcg/dL
== END 2021-09-24 10:59 | disposition home or self-care (01) ==
LOC: HO.LNP 10:58
PROVIDERS: Visit Provider Internal Medicine
DX: E24.0 Pituitary-dependent Cushing's disease (principal)
CPT/HCPCS: 82530

== ENCOUNTER → 2021-09-28 13:02 | Outpatient (BNVA) | payer MEDICARE, SELFPAY | PROVIDERS: PCP Family Medicine; Visit Provider Internal Medicine | DX: E24.9 Cushing's syndrome, unspecified (principal); E29.1 Testicular hypofunction; E03.9 Hypothyroidism, unspecified; E24.0 Pituitary-dependent Cushing's disease; N40.0 Benign prostatic hyperplasia without lower urinary tract symptoms; R97.20 Elevated prostate specific antigen [PSA] | CPT/HCPCS: Q3014 ==

== ENCOUNTER → 2021-09-30 08:17 | Outpatient (BNVA) | payer MEDICARE, SELFPAY | PROVIDERS: PCP Family Medicine; Visit Provider Internal Medicine | DX: I48.0 Paroxysmal atrial fibrillation (principal); Z79.01 Long term (current) use of anticoagulants; Z51.81 Encounter for therapeutic drug level monitoring | CPT/HCPCS: 85610; 99211 ==

== ENCOUNTER → 2021-10-04 08:04 | Outpatient (BNVA) | payer MEDICARE, SELFPAY | PROVIDERS: PCP Family Medicine; Visit Provider Internal Medicine | DX: I48.0 Paroxysmal atrial fibrillation (principal); Z79.01 Long term (current) use of anticoagulants; Z51.81 Encounter for therapeutic drug level monitoring | CPT/HCPCS: 85610; 99211 ==

== ENCOUNTER → 2021-10-06 09:34 | Outpatient (BNVA) | payer MEDICARE, SELFPAY | PROVIDERS: PCP Family Medicine; Referring Provider Family Medicine; Visit Provider Internal Medicine Cardiovascular Disease | DX: I48.20 Chronic atrial fibrillation, unspecified (principal); I25.10 Atherosclerotic heart disease of native coronary artery without angina pectoris; I10 Essential (primary) hypertension; Z79.01 Long term (current) use of anticoagulants; Z79.899 Other long term (current) drug therapy | CPT/HCPCS: 93005; 99212 ==

== ENCOUNTER → 2021-10-17 08:15 | Outpatient (BNVA) | payer MEDICARE, SELFPAY | PROVIDERS: PCP Family Medicine; Visit Provider Internal Medicine | DX: I48.0 Paroxysmal atrial fibrillation (principal); Z79.01 Long term (current) use of anticoagulants; Z51.81 Encounter for therapeutic drug level monitoring | CPT/HCPCS: 85610; 99211 ==

== ENCOUNTER 2021-10-25 09:26 | Outpatient (REF) | payer MEDICARE, SELFPAY ==
--- NOTE | ~2021-10-25 | MR_ITS ---
EXAMINATION: MR BRAIN WITHOUT AND WITH CONTRAST CLINICAL INFORMATION: 86-year-old with history of pituitary lesion. Follow-up exam. COMPARISON: 01/07/2020 MRI. TECHNIQUE: Multiplanar, multisequence MRI of the brain/sella was obtained before and after the intravenous administration of 4 mL Gadavist. FINDINGS: On the current study, there is a 1 mm focus of hypoenhancement within the anterior pituitary gland to the left of midline, best visualized on image 15 of series 9 which appears to extend to the superior surface of the gland on image 14 and more likely represents a tiny cleft in the gland, unchanged in appearance. The previously noted 3 mm focus of hypoenhancement on the left side of the gland is not as well visualized on the current study and appears slightly more diffuse suggesting some heterogeneous enhancement on current study on the left. No definite discrete pituitary mass lesion. The infundibulum enhances normally and is unchanged in position in appearance. The cavernous sinuses are symmetric and enhance normally. No suprasellar or juxtasellar masses are identified. No focal reduced diffusion is seen to suggest acute or subacute cerebral ischemia. Scattered punctate and patchy zones of FLAIR/T2 signal hyperintensity are noted within the subcortical and deeper periventricular white matter of both cerebral hemispheres without abnormal enhancement, which are nonspecific findings but likely reflect chronic ischemic microangiopathy in a patient of this age, similar to the prior exam. Punctate focus of T2 hyperintensity in the right mouna, stable in appearance consistent with chronic ischemic microangiopathy. No intracranial mass lesions, abnormal brain parenchymal or leptomeningeal enhancement, space-occupying process, or mass effect. There is a tiny remote lacunar infarct in the head of the right caudate nucleus, stable in appearance. The ventricular system and subarachnoid spaces are consistent with mild to moderate generalized diffuse nonspecific brain parenchymal volume loss without hydrocephalus, stable in appearance. Normal signal voids are seen in the visualized major intracranial vessels. There is minor mucosal thickening in the ethmoid complex, unchanged in appearance. Bony structures appear intact. MR/MR head/brain wo/w con IMPRESSION: 1. Previously noted 3 mm focus of hypoenhancement on the left side of the pituitary gland appears more diffuse, less well circumscribed on current study, appearing as slightly heterogeneous enhancement. Probable tiny cleft along the superior surface of the gland on the left is stable. 2. Chronic ischemic microangiopathy in the white matter of both cerebral hemispheres and a small remote lacunar infarct in the right caudate head with a tiny focus of chronic ischemic change in the right mouna, stable in appearance. 3. Follow-up as per clinical indications.
== END 2021-10-25 09:27 | disposition home or self-care (01) ==
LOC: HO.MRI 09:26
PROVIDERS: Visit Provider Internal Medicine
DX: D35.2 Benign neoplasm of pituitary gland (principal)
CPT/HCPCS: 70553; A9585

== ENCOUNTER → 2021-11-01 08:07 | Outpatient (BNVA) | payer MEDICARE, SELFPAY | PROVIDERS: PCP Family Medicine; Visit Provider Internal Medicine | DX: I48.0 Paroxysmal atrial fibrillation (principal); N40.1 Benign prostatic hyperplasia with lower urinary tract symptoms; N13.8 Other obstructive and reflux uropathy; E29.1 Testicular hypofunction; N52.9 Male erectile dysfunction, unspecified; Z79.01 Long term (current) use of anticoagulants; Z51.81 Encounter for therapeutic drug level monitoring | CPT/HCPCS: 85610; 99211; Q3014 ==

== ENCOUNTER → 2021-11-18 09:20 | Outpatient (BNVA) | payer MEDICARE, SELFPAY | PROVIDERS: PCP Family Medicine; Visit Provider Internal Medicine | DX: I48.0 Paroxysmal atrial fibrillation (principal); Z51.81 Encounter for therapeutic drug level monitoring; Z79.01 Long term (current) use of anticoagulants | CPT/HCPCS: 85610; 99211 ==

== ENCOUNTER → 2021-11-29 08:39 | Outpatient (BNVA) | payer MEDICARE, SELFPAY | PROVIDERS: PCP Family Medicine; Visit Provider Hospitalist | DX: R91.8 Other nonspecific abnormal finding of lung field (principal); J98.6 Disorders of diaphragm; R06.2 Wheezing | CPT/HCPCS: 99212 ==

== ENCOUNTER → 2021-12-02 08:44 | Outpatient (BNVA) | payer MEDICARE, SELFPAY | PROVIDERS: PCP Family Medicine; Visit Provider Internal Medicine | DX: I48.0 Paroxysmal atrial fibrillation (principal); Z79.01 Long term (current) use of anticoagulants; Z51.81 Encounter for therapeutic drug level monitoring | CPT/HCPCS: 85610; 99211 ==

== ENCOUNTER → 2021-12-16 08:27 | Outpatient (BNVA) | payer MEDICARE, SELFPAY | PROVIDERS: PCP Family Medicine; Visit Provider Internal Medicine | DX: I48.0 Paroxysmal atrial fibrillation (principal); Z79.01 Long term (current) use of anticoagulants; Z51.81 Encounter for therapeutic drug level monitoring | CPT/HCPCS: 85610; 99211 ==

== ENCOUNTER → 2021-12-30 08:27 | Outpatient (BNVA) | payer MEDICARE, SELFPAY | PROVIDERS: PCP Family Medicine; Visit Provider Internal Medicine | DX: I48.0 Paroxysmal atrial fibrillation (principal); Z51.81 Encounter for therapeutic drug level monitoring; Z79.01 Long term (current) use of anticoagulants | CPT/HCPCS: 85610; 99211 ==

== ENCOUNTER → 2022-01-13 08:48 | Outpatient (BNVA) | payer MEDICARE, SELFPAY | PROVIDERS: PCP Family Medicine; Visit Provider Internal Medicine | DX: I48.0 Paroxysmal atrial fibrillation (principal); Z79.01 Long term (current) use of anticoagulants; Z51.81 Encounter for therapeutic drug level monitoring | CPT/HCPCS: 85610; 99211 ==

== ENCOUNTER 2022-01-17 07:28 | Outpatient (REF) | payer MEDICARE, SELFPAY ==
[2022-01-17 07:44] LABS: MANUAL DIFF FLAG NO
[2022-01-17 08:05] LABS: Basophils Percent Auto 0.4 % (0-2); Eosinophils Absolute Auto 0.3 X10*3/uL (0.0-0.4); Eosinophils Percent Auto 3.9 % (0-4); Hematocrit 37.4 % (42.0-52.0); Hemoglobin 12.6 g/dl (14.0-18.0); Imm Gran Abs Auto 0.01 X10*3/uL (0.00-0.03); Imm Gran Pct Auto 0.1 % (0.0-0.4); Lymphocytes Absolute Auto 1.8 X10*3/uL (1.2-4.9); Lymphocytes Percent Auto 22.9 % (20-40); Mean Corpuscular HGB Conc 33.7 g/dl (31.0-36.0); Mean Corpuscular Hemoglobin 34.6 pg (27.0-33.0); Mean Corpuscular Volume 102.7 fL (80.0-98.0); Mean Platelet Volume 11.1 fL (9.4-12.4); Monocytes Absolute Auto 0.6 X10*3/uL (0.1-1.2); Monocytes Percent Auto 7.9 % (2-11); Neutrophils Absolute Auto 4.9 x10*3/uL (2.0-8.3); Neutrophils Percent Auto 64.8 % (45-73); Platelet Count 177 X10*3/uL (160-400); Red Blood Count 3.64 X10*6/uL (4.60-5.80); Red Cell Distribution Width 13.8 % (11.0-16.0); White Blood Count 7.6 X10*3/uL (4.8-10.8)
[2022-01-17 08:21] LABS: Anion Gap 15 (12-20); Blood Urea Nitrogen 29 mg/dL (9-16); Calcium 8.9 mg/dL (8.4-10.2); Carbon Dioxide 28 mmol/L (22-29); Chloride 106 mmol/L (96-108); Estimated Glomerular Filt Rate 49; Phosphorus 3.1 mg/dL (2.7-4.5); Potassium 3.9 mmol/L (3.3-5.1); Sodium 145 mmol/L (135-145)
[2022-01-17 08:22] LABS: Uric Acid 7.4 mg/dL (3.4-7.0)
[2022-01-17 08:28] LABS: Creatinine Urine 158.85 mg/dL; Protein/Creatinine Ratio, Ur 0.25 (<0.2); Total Protein Urine Random 40 mg/dL (<12)
[2022-01-17 08:36] LABS: Vitamin D 25-OH Total 51.7 ng/mL (>30)
[2022-01-19 14:02] LABS: PTHI 153 pg/mL (16-77)
[2022-01-20 17:38] LABS: Prot Elec - Albumin 3.7 g/dL (3.8-4.8); Prot Elec - Alpha1 0.3 g/dL (0.2-0.3); Prot Elec - Alpha2 0.8 g/dL (0.5-0.9); Prot Elec - Beta 1 0.5 g/dL (0.4-0.6); Prot Elec - Beta 2 0.4 g/dL (0.2-0.5); Prot Elec - Gamma 0.8 g/dL (0.8-1.7); Prot Elec - Total Protein 6.3 g/dL (6.1-8.1)
== END 2022-01-17 07:29 | disposition home or self-care (01) ==
LOC: HO.LAB 07:28
PROVIDERS: PCP Family Medicine; Visit Provider Internal Medicine Nephrology
DX: I12.9 Hypertensive chronic kidney disease with stage 1 through stage 4 chronic kidney disease, or unspecified chronic kidney disease (principal); N18.31 Chronic kidney disease, stage 3a
CPT/HCPCS: 36415; 80051; 82306; 82310; 82565; 83970; 84100; 84156; 84165; 84520; 84550; 85025

== ENCOUNTER → 2022-02-02 07:59 | Outpatient (BNVA) | payer MEDICARE, SELFPAY | PROVIDERS: PCP Family Medicine; Visit Provider Internal Medicine | DX: I48.0 Paroxysmal atrial fibrillation (principal); Z79.01 Long term (current) use of anticoagulants; Z51.81 Encounter for therapeutic drug level monitoring | CPT/HCPCS: 85610; 99211 ==

== ENCOUNTER → 2022-02-16 08:09 | Outpatient (BNVA) | payer MEDICARE, SELFPAY | PROVIDERS: PCP Family Medicine; Visit Provider Internal Medicine | DX: I48.0 Paroxysmal atrial fibrillation (principal); Z51.81 Encounter for therapeutic drug level monitoring; Z79.01 Long term (current) use of anticoagulants | CPT/HCPCS: 85610; 99211 ==

== ENCOUNTER → 2022-03-02 10:53 | Outpatient (BNVA) | payer MEDICARE, SELFPAY | PROVIDERS: PCP Family Medicine; Referring Provider Family Medicine; Visit Provider Internal Medicine Cardiovascular Disease | DX: I25.10 Atherosclerotic heart disease of native coronary artery without angina pectoris (principal); I10 Essential (primary) hypertension; I48.91 Unspecified atrial fibrillation; Z79.01 Long term (current) use of anticoagulants; Z79.899 Other long term (current) drug therapy | CPT/HCPCS: 99212 ==

== ENCOUNTER → 2022-03-09 08:03 | Outpatient (BNVA) | payer MEDICARE, SELFPAY | PROVIDERS: PCP Family Medicine; Visit Provider Internal Medicine | DX: I48.0 Paroxysmal atrial fibrillation (principal); Z79.01 Long term (current) use of anticoagulants; Z51.81 Encounter for therapeutic drug level monitoring | CPT/HCPCS: 85610; 99211 ==

== ENCOUNTER → 2022-04-06 08:06 | Outpatient (BNVA) | payer MEDICARE, SELFPAY | PROVIDERS: PCP Family Medicine; Visit Provider Internal Medicine | DX: I48.0 Paroxysmal atrial fibrillation (principal); Z79.01 Long term (current) use of anticoagulants; Z51.81 Encounter for therapeutic drug level monitoring | CPT/HCPCS: 85610; 99211 ==

== ENCOUNTER 2022-04-20 12:26 | Outpatient (REF) | payer MEDICARE, SELFPAY ==
--- NOTE | ~2022-04-20 | CT_ITS ---
EXAMINATION: CT CHEST WITHOUT CONTRAST CLINICAL INFORMATION: Follow-up pulmonary nodules. COMPARISON: CT chest 04/05/2021 TECHNIQUE: Multidetector volumetric CT imaging of the chest was done. Axial MIP volume rendering provided. Sagittal and coronal reformatted images were obtained. This CT examination was performed using dose optimization techniques as appropriate, variously including the following: *Automated exposure control *Adjustment of mA and/or kV according to patient size (this includes techniques or standardized protocols for targeted exams where dose is matched to indication/reason for exam; i.e. extremities or head) *Use of iterative reconstruction technique DLP: 169 mGy-cm FINDINGS: TANK RIVETER: There is elevated right hemidiaphragm. The right upper lung and the left lung remain clear. LUNGS: There is 2 mm calcified tumor nodule right upper lob axial image 107/5, 2 mm noncalcified nodule, left upper lobe axial image 117/5, 1 mm calcified nodule right upper lobe 136/5, 2 mm calcified nodules right upper lobe axial image 193/5, a large 1.0 cm calcified nodule with activity adjacent clustered smaller 1 mm calcified nodules in left upper lobe axial image 197/5 and 202/5, 2 mm calcified nodule right lower lobe medially axial image 61/8, 6 mm pleural-based nodule right middle lobe axial image 294/5. There is a 1.9 cm ground-glass opacity left lower lobe axial image 267/5. No acute pneumonic process seen. MEDIASTINUM: Central trachea and the bronchi are widely patent. Heart size and the great vessels are normal caliber. There are small shotty lymph nodes in the mediastinum. Thyroid lobes are small and barely visible. Central trachea and the bronchi are widely patent. There are calcified left hilar lymph nodes. They are stable. CORONARY ARTERY CALCIFICATION: Trace coronary artery calcifications are seen. PLEURA: There is no pleural effusion or pleural thickening. AXILLA: No abnormal size axillary lymph nodes seen. The chest wall is unremarkable. UPPER ABDOMEN: There are multiple radiopaque gallstones without wall thickening. Visualized liver, spleen, pancreas and bilateral adrenal glands are unremarkable. OSSEOUS STRUCTURES: No aggressive lytic or sclerotic process seen. There is ventral spondylosis seen throughout dorsal spine. CT/CT chest wo IV con IMPRESSION: 1. Multiple calcified and noncalcified pulmonary nodules. The largest calcified nodule is 1 cm in the left upper lobe. 2. No abnormal mediastinal or axillary lymphadenopathy seen. 3. Cholelithiasis without wall thickening. Fleischner guidelines were followed.
== END 2022-04-20 12:27 | disposition home or self-care (01) ==
LOC: HO.CT 12:26
PROVIDERS: PCP Family Medicine; Visit Provider Hospitalist
DX: R91.8 Other nonspecific abnormal finding of lung field (principal)
CPT/HCPCS: 71250

== ENCOUNTER 2022-04-21 08:59 | Outpatient (REF) | payer MEDICARE, SELFPAY ==
[2022-04-21 09:17] LABS: MANUAL DIFF FLAG NO
[2022-04-21 09:58] LABS: Appearance Urine Clear; Color Urine Yellow; Glucose Urine UA Negative (Negative); Leukocyte Esterase Urine Negative (Negative); Nitrite Urine Negative (Negative); UMIC TRIGGER UA YES; Urine Blood Small (1+) (Negative); Urine Ketones Trace mg/dL (Negative); Urine Protein 100 (2+) mg/dL (Neg-Trace)
[2022-04-21 10:05] LABS: Basophils Percent Auto 0.3 % (0-2); Eosinophils Percent Auto 0.1 % (0-4); Hematocrit 41.1 % (42.0-52.0); Hemoglobin 13.5 g/dl (14.0-18.0); Imm Gran Abs Auto 0.07 X10*3/uL (0.00-0.03); Imm Gran Pct Auto 0.5 % (0.0-0.4); Lymphocytes Absolute Auto 1.1 X10*3/uL (1.2-4.9); Mean Corpuscular HGB Conc 32.8 g/dl (31.0-36.0); Mean Corpuscular Hemoglobin 34.7 pg (27.0-33.0); Mean Corpuscular Volume 105.7 fL (80.0-98.0); Mean Platelet Volume 11.3 fL (9.4-12.4); Monocytes Absolute Auto 1.1 X10*3/uL (0.1-1.2); Neutrophils Percent Auto 85.1 % (45-73); Platelet Count 195 X10*3/uL (160-400); Red Blood Count 3.89 X10*6/uL (4.60-5.80); Red Cell Distribution Width 13.9 % (11.0-16.0); White Blood Count 15.2 X10*3/uL (4.8-10.8)
[2022-04-21 10:06] LABS: Bacteria Urine None Seen (None Seen); Hyaline Casts Urine 0-2 /LPF (0-2); RBC Urine >20 /HPF (0-2); Squamous Epithelial Cell Urine 0-2 /HPF (0-2); WBC Urine 0-5 /HPF (0-5)
[2022-04-21 10:29] LABS: Creatinine Urine 140.87 mg/dL; Microalbum/Creatinine Ratio Ur 238.5 ug/mg cr
[2022-04-21 10:55] LABS: Prostate Specific Antigen Scr 1.14 ng/mL (<0.05-4.0); TSH reflex Free T4 0.38 uIU/mL (0.32-4.0)
[2022-04-21 13:11] LABS: Alanine Aminotransferase 14 U/L (0-40); Albumin Level 4.2 g/dL (3.5-5.0); Alkaline Phosphatase 107 U/L (39-117); Anion Gap 17 (12-20); Aspartate Amino Transferase 17 U/L (5-37); Bilirubin Total 2.6 mg/dL (0.0-1.0); Blood Urea Nitrogen 23 mg/dL (9-16); Calcium 9.7 mg/dL (8.4-10.2); Carbon Dioxide 23 mmol/L (22-29); Chloride 105 mmol/L (96-108); Cholesterol 138 mg/dL; Estimated Glomerular Filt Rate 45; Glucose Fasting 159 mg/dL (60-99); HDL Cholesterol 35 mg/dL; LDL Cholesterol Calculated 87 mg/dl; Potassium 4.4 mmol/L (3.3-5.1); Prostate Specific Antigen 1.34 ng/mL (<0.05-4.0); Sodium 141 mmol/L (135-145); Total Protein 6.8 g/dL (6.5-8.0); Triglycerides 81 mg/dL
[2022-04-23 01:03] LABS: Follicle Stimulating Hormone 51.8 mIU/mL (1.6-8.0); Lutenizing Hormone 22.1 mIU/mL (1.6-15.2)
[2022-04-28 14:23] LABS: Testosterone, Total 177 ng/dL (250-1100)
== END 2022-04-21 09:00 | disposition home or self-care (01) ==
LOC: HO.LAB 08:59
PROVIDERS: PCP Family Medicine; Visit Provider Urology
DX: Z00.00 Encounter for general adult medical examination without abnormal findings (principal); Z12.5 Encounter for screening for malignant neoplasm of prostate; E29.1 Testicular hypofunction; I10 Essential (primary) hypertension
CPT/HCPCS: 36415; 80053; 80061; 81001; 82043; 83001; 83002; 84153; 84403; 84443; 85025

== ENCOUNTER → 2022-05-03 13:06 | Outpatient (BNVA) | payer MEDICARE, SELFPAY | PROVIDERS: PCP Family Medicine; Visit Provider Urology | DX: E29.1 Testicular hypofunction (principal); N52.9 Male erectile dysfunction, unspecified; Z79.899 Other long term (current) drug therapy | CPT/HCPCS: 51798; 99212 ==

== ENCOUNTER → 2022-05-04 08:02 | Outpatient (BNVA) | payer MEDICARE, SELFPAY | PROVIDERS: PCP Family Medicine; Visit Provider Internal Medicine | DX: I48.0 Paroxysmal atrial fibrillation (principal); Z79.01 Long term (current) use of anticoagulants; Z51.81 Encounter for therapeutic drug level monitoring | CPT/HCPCS: 85610; 99211 ==

== ENCOUNTER → 2022-05-12 13:44 | Outpatient (BNVA) | payer MEDICARE, SELFPAY | PROVIDERS: PCP Family Medicine; Visit Provider Internal Medicine Cardiovascular Disease | DX: I48.91 Unspecified atrial fibrillation (principal) | CPT/HCPCS: 93005 ==

== ENCOUNTER → 2022-05-24 08:38 | Outpatient (BNVA) | payer MEDICARE, SELFPAY | PROVIDERS: PCP Family Medicine; Visit Provider Hospitalist | DX: R91.8 Other nonspecific abnormal finding of lung field (principal); J98.6 Disorders of diaphragm; R10.11 Right upper quadrant pain | CPT/HCPCS: 99212 ==

== ENCOUNTER → 2022-06-01 08:26 | Outpatient (REF) | payer MEDICARE, SELFPAY ==
--- NOTE | 2022-06-01 08:30 | HM_ITS ---
Conclusion: 1. Patient was monitored for total period of 6 days and 23 hours 2. Baseline was atrial fibrillation with average heart of 47 beats per minute with lowest heart rate of 16 beats per minute during sleeping hours 3. Multiple pauses greater than 2.5 seconds noted with longest pause of 5.8 seconds happening on day 4 at 05:00 4. Frequent slow ventricular response to atrial fibrillation with 68% of time heart rate below 60 beats per minute 5. Rare PVCs noted 6. No patient reported events MTDD
== END ==
LOC: HO.CARD 08:26
PROVIDERS: PCP Family Medicine; Visit Provider Internal Medicine Cardiovascular Disease
DX: I48.0 Paroxysmal atrial fibrillation (principal); R00.1 Bradycardia, unspecified; Z51.81 Encounter for therapeutic drug level monitoring; Z79.01 Long term (current) use of anticoagulants
CPT/HCPCS: 85610; 93242; 99211

== ENCOUNTER → 2022-06-15 08:03 | Outpatient (BNVA) | payer MEDICARE, SELFPAY | PROVIDERS: PCP Family Medicine; Visit Provider Internal Medicine | DX: I48.0 Paroxysmal atrial fibrillation (principal); Z79.01 Long term (current) use of anticoagulants; Z51.81 Encounter for therapeutic drug level monitoring | CPT/HCPCS: 85610; 99211 ==

== ENCOUNTER → 2022-07-06 08:15 | Outpatient (BNVA) | payer MEDICARE, SELFPAY | PROVIDERS: PCP Family Medicine; Visit Provider Internal Medicine | DX: I48.0 Paroxysmal atrial fibrillation (principal); Z79.01 Long term (current) use of anticoagulants; Z51.81 Encounter for therapeutic drug level monitoring | CPT/HCPCS: 85610; 99211 ==

== ENCOUNTER 2022-07-12 07:05 | Outpatient (REF) | payer MEDICARE, SELFPAY ==
[2022-07-12 08:14] LABS: Appearance Urine Clear; Color Urine Dark Yellow; Glucose Urine UA Negative (Negative); Leukocyte Esterase Urine Negative (Negative); Nitrite Urine Negative (Negative); PH 5.5 (5.0-9.0); Specific Gravity - Urine 1.025 (1.005-1.025); UMIC TRIGGER UA YES; Urine Blood Negative (Negative); Urine Ketones Trace mg/dL (Negative); Urine Protein 30 (1+) mg/dL (Neg-Trace)
[2022-07-12 08:20] LABS: Bacteria Urine None Seen (None Seen); Hyaline Casts Urine 0-2 /LPF (0-2); Squamous Epithelial Cell Urine 0-2 /HPF (0-2); WBC Urine 0-5 /HPF (0-5)
== END 2022-07-12 07:06 | disposition home or self-care (01) ==
LOC: HO.LAB 07:05
PROVIDERS: PCP Family Medicine; Visit Provider Family Medicine
DX: Z00.00 Encounter for general adult medical examination without abnormal findings (principal)
CPT/HCPCS: 81001; 81003

== ENCOUNTER → 2022-07-20 08:08 | Outpatient (BNVA) | payer MEDICARE, SELFPAY | PROVIDERS: PCP Family Medicine; Visit Provider Internal Medicine | DX: Z79.01 Long term (current) use of anticoagulants (principal) ==

== ENCOUNTER 2022-07-20 08:46 | Emergency (ER) | payer MEDICARE, SELFPAY ==
--- NOTE | ~2022-07-20 | CT_ITS ---
EXAMINATION: CT HEAD WITHOUT CONTRAST CLINICAL INFORMATION: Left eye change in vision. Patient on Coumadin. Evaluate for bleed. COMPARISON: Head CT from 11/06/2012. MRI head from 10/25/2021. TECHNIQUE: Contiguous axial imaging was performed from the skull base to vertex without intravenous administration of contrast. This CT examination was performed using dose optimization techniques as appropriate, variously including the following: *Automated exposure control *Adjustment of mA and/or kV according to patient size (this includes techniques or standardized protocols for targeted exams where dose is matched to indication/reason for exam; i.e. extremities or head) *Use of iterative reconstruction technique DLP: 639 mGy-cm FINDINGS: No intracranial hemorrhage, extra-axial fluid collection, focal mass effect or midline shift. Atherosclerotic calcification of cavernous carotid arteries. Chronic patchy hypoattenuation is present within the supratentorial white matter. The chen-white matter differentiation is maintained. No evidence of an acute major vascular territory infarction. Chronic parenchymal volume loss with commensurate prominence of ventricles and sulci; no hydrocephalus. No acute findings within the posterior fossa. The cerebellar tonsils are in normal position. The calvarium is intact. The mastoid air cells are well aerated. There is lack of development of frontal sinuses. The visualized paranasal sinuses are clear. Temporomandibular joints are normal. Ocular lens extractions. The orbits and globes are partially included in [id number] and there is no evidence of orbital region hematoma or soft tissue swelling. CT/CT head/brain wo IV con IMPRESSION: * No acute intracranial pathology compared to the MRI from 10/25/2021. * Chronic moderate parenchymal volume loss and chronic small vessel ischemic changes of the supratentorial white matter.
[2022-07-20 08:58] VITALS: BP 133/74; PULSE 68; RESP 16; TEMP 37.1; O2SAT 97; BMI 29.0
--- NOTE | 2022-07-20 09:08 | ED_ITS ---
HPI - Neuro Symptoms/Deficit General Chief Complaint: Neuro Symptoms/Deficit Stated Complaint: Stroke symptoms Time Seen by Provider: 07/20/22 08:50 Source: patient Mode of arrival: ambulatory Limitations: no limitations History of Present Illness HPI Narrative: 87-year-old male who presents emergency department for evaluation of change in vision in his left eye. The patient has a history of atrial fibrillation and is on warfarin. He came to the hospital to get his PT/INR checked he states that while he was sitting in the waiting area at 07:45 hours he had a change in vision in his left eye. He states that when he was looking at objects with a straight edge, there was a dip in the center of the straight edge which he was only experience this in the left eye. He denied other symptoms such as headache, nausea, vomiting, flashing lights, floaters, visual field loss. Related Data Home Medications Medication Instructions Recorded Confirmed blood sugar diagnostic #10 ea 02/24/20 07/19/22 lancets #100 ea 02/24/20 07/19/22 docusate sodium 100 mg capsule 100 mg PO DAILY PRN constipation 11/18/20 07/19/22 metoprolol succinate 50 mg 50 mg PO DAILY 07/19/22 07/19/22 tablet,extended release 24 hr Previous Rx's Medication Instructions Recorded blood sugar diagnostic (OneTouch 1 strip miscellaneous BID for 03/09/21 Ultra Test strips) diabetes mellitus 1 month #200 ea lancets (OneTouch UltraSoft #200 ea 07/01/21 Lancets) amlodipine 10 mg tablet 5 mg PO DAILY 90 days #45 tabs 08/07/21 lisinopril 20 mg tablet 20 mg PO DAILY #90 tabs 08/10/21 levothyroxine 137 mcg tablet 137 mcg PO DAILY 30 days #30 tabs 10/14/21 (Euthyrox) dutasteride 0.5 mg capsule 0.5 mg PO DAILY 90 days #90 caps 04/04/22 bumetanide 1 mg tablet 1 mg PO DAILY #90 tabs 04/10/22 diclofenac sodium 1 % topical gel 4 g topical QID PRN .Pain 30 days 04/12/22 (Voltaren Arthritis Pain) #200 grams tadalafil 10 mg tablet 10 mg PO DAILY erectile 05/03/22 dysfunction 90 days #90 tabs warfarin 2 mg tablet 4 mg PO DAILY #60 tabs 05/28/22 pravastatin 40 mg tablet 40 mg PO DAILY #90 tabs 06/16/22 tadalafil 20 mg tablet 20 mg PO ONCE PRN sexual activity 06/20/22 30 days #30 tabs glipizide 5 mg tablet, extended 5 mg PO DAILY 30 days #30 tabs 06/30/22 release 24 hr ezetimibe 10 mg tablet (Zetia) 10 mg PO DAILY 30 days #30 tabs 07/19/22 Allergies Allergy/AdvReac Type Severity Reaction Status Date / Time hydralazine [Hydralazine] Allergy Unknown SEVERE Verified 07/20/22 08:25 HEADACHE Review of Systems Review of Systems: Yes all other systems are reviewed and are negative [facility] Past Medical History Medical History (Updated 07/20/22 @ 09:44 by Blaise Castellanos MD) Aortic stenosis Atrial fibrillation CAD (coronary artery disease) [place]'s disease Diabetes type 2, controlled Edema Elevated diaphragm Elevated morning serum cortisol level Elevated prostate specific antigen between 10 and 19 ng/ml Pulmonary nodules RUQ pain Wheezing Surgical History History of cardiac cath Hx of colonoscopy Hx of tonsillectomy Family History Family History Father Colon cancer Mother HTN (hypertension) Type 2 diabetes mellitus Brother No problems noted. Sister No problems noted. Son No problems noted. Son No problems noted. Son No problems noted. Daughter No problems noted. Daughter No problems noted. Social History Social History Housing: Apartment Alcohol intake: former Year quit: 1979 Patient Tobacco Use Status: Former Tobacco user Quit Date: 1979 Years Smoked: 45+ Smoked in Last 30 Days: No e-Cigarette/Vaping Use: Never Used Second Hand Smoke Exposure: No Use of substances other than those prescribed or required for medical reasons: No Advance Directives: No Advance Directives Information Provided: Yes service: Yes Current occupational status: retired Current occupational exposures/hazards: No Cognitive needs: No Hearing needs: Yes Vision needs: No Physical Exam Vital Signs: Vital Signs: Last Vital Signs Temp 98.7 F 07/20/22 08:58 Pulse 68 07/20/22 08:58 Resp 16 07/20/22 08:58 BP 133/74 07/20/22 08:58 Pulse Ox 97 07/20/22 08:58 O2 Del Method 07/20/22 08:58 BMI result Body Mass Index 29.0 Const: General: cooperative and no acute distress Orientation/consciousness: oriented to person and oriented to place Limitations: no limitations HEENT: Head: Yes normal to inspection, Yes normocephalic and Yes atraumatic Ears: external ears normal General nose exam: Normal external nose present Face and sinus: Yes normal facial exam Mouth: Normal oral and palatal mucosa present Throat: Yes posterior oropharynx normal Eyes: General: appearance normal, both eyes and all related structures Pupils: Equal, round and reactive pupils present Neck: Neck: Yes normal visual inspection, Yes no lymphadenopathy, Yes trachea midline and Yes supple Chest: Chest palpation & inspection: normal inspection of the chest and normal palpation of entire chest wall Resp: Effort & Inspection: normal respiratory effort and able to speak in complete sentences Auscultation: clear to auscultation bilaterally Cardio: Rate: regular rate Rhythm: regular rhythm Heart sounds: S1 normal heart sound present, S2 normal heart sound present and no murmurs GI: Inspection: Yes normal to inspection Palpation (GI): Soft to palpation, nontender and no guarding Auscultation: normal bowel sounds : General: Yes no CVA tenderness Back/Spine/Pelvis: Back: no CVA tenderness Skin: General skin exam: no rashes or lesions noted Neuro: General: oriented to person and oriented to place Cranial nerves: Yes CN's II-XII intact bilaterally and Yes Equal, round and reactive pupils present Cognition (Neuro): normal cognition Motor exam (neuro): 5/5 motor strength present throughout Extrem: General: Yes normal to inspection Psych: Appearance: grossly normal Speech and movement: Normal speech and movement present Affect: normal affect Attitude: cooperative Thought process: Normal thought process present Thought content: Normal thought content present Medical Decision Making Medical Decision Making MDM Narrative: 87-year-old male who presents emergency department for evaluation of sudden onset of change in vision in his left eye only. The patient states that when he looks at an object that has a straight line, in the center of the straight line there is a downward depression. It no other symptoms. He does have a history of atrial fibrillation and is on warfarin. His neurologic exam was nonfocal. His NIH stroke scale was 0. I did order laboratory evaluation includes CBC, CMP, PT/INR, PTT, EKG. CT scan of the brain without IV contrast will be obtained rule out hemorrhage. 0942: At the end of my shift, the patient's workup is pending therefore the patient's care was turned over to my colleague, Dr. Regis Marquez Differential Diagnosis Differential diagnosis includes was not limited to stroke, cerebral hemorrhage, retinal detachment, vitreous detachment, lens issue Lab Data 07/20/22 09:28 07/20/22 09:28 Labs: Lab Results 07/20/22 Range/Units 09:28 WBC 7.9 (4.8-10.8) X10*3/uL RBC 3.97 L (4.60-5.80) X10*6/uL Hgb 13.6 L (14.0-18.0) g/dl Hct 41.5 L (42.0-52.0) % MCV 104.5 H (80.0-98.0) fL MCH 34.3 H (27.0-33.0) pg MCHC 32.8 (31.0-36.0) g/dl RDW 13.7 (11.0-16.0) % Plt Count 160 (160-400) X10*3/uL MPV 11.5 (9.4-12.4) fL Immature Gran % (Auto) 0.4 (0.0-0.4) % Neut % (Auto) 75.2 H (45-73) % Lymph % (Auto) 15.3 L (20-40) % [place] % (Auto) 6.7 (2-11) % Eos % (Auto) 2.0 (0-4) % Baso % (Auto) 0.4 (0-2) % Lymph # (Auto) 1.2 (1.2-4.9) X10*3/uL [place] # (Auto) 0.5 (0.1-1.2) X10*3/uL Eos # (Auto) 0.2 (0.0-0.4) X10*3/uL Baso # (Auto) 0.0 (0.0-0.2) X10*3/uL Abs Immat Gran (auto) 0.03 (0.00-0.03) X10*3/uL Absolute Neuts (auto) 5.9 (2.0-8.3) x10*3/uL Absolute Nucleated RBC 0.000 (0.0-0.012) X10*3/uL Nucleated RBC % (auto) 0.0 (0.0-0.2) /100WBC NIH Stroke Scale Internal: Initial- Upon Arrival Level of Consciousness: Alert Level of Consciousness Questions: Answers both questions correctly Level of Consciousness Commands: Performs both tasks correctly Best Gaze: Normal Visual: No visual loss Facial Palsy: Normal Motor Arm (Right): No drift Motor Arm (Left): No drift Motor Leg (Right): No drift Motor Leg (Left): No drift Limb Ataxia: Absent Sensory: Normal Best Language: No aphasia Dysarthia: Normal Extinction and Inattention: No abnormality Score: 0 Discharge Plan Discharge Clinical Impression: Change in vision Patient Disposition: Still a Patient Prescriptions: No Action OneTouch Ultra Test Strip 1 strip miscellaneous BID 30 Days Qty: 200 5RF (DME) lancets [OneTouch UltraSoft Lancets] Misc See Rx Instructions .Route Qty: 200 4RF Rx Instructions: As directed to test blood sugar twice a day. Ninety day supply amlodipine 10 mg tablet 5 mg PO DAILY 90 Days Qty: 45 3RF lisinopril 20 mg tablet 20 mg PO DAILY Qty: 90 4RF levothyroxine [Euthyrox] 137 mcg tablet 137 mcg PO DAILY 30 Days Qty: 30 11RF dutasteride 0.5 mg capsule 0.5 mg PO DAILY 90 Days Qty: 90 1RF bumetanide 1 mg tablet 1 mg PO DAILY Qty: 90 2RF warfarin 2 mg tablet 4 mg PO DAILY Qty: 60 12RF Protocol: Dose Management Condition: Sunday (Week One) Dose/Route: 2 mg Instruction: 1 x 2 mg tablet Condition: Sunday Dose/Route: 4 mg Instruction: 2 x 2 mg tablets Condition: Sunday Dose/Route: 4 mg Instruction: 2 x 2 mg tablets Condition: Sunday Dose/Route: 2 mg Instruction: 1 x 2 mg tablet Condition: Dose/Route: 6 mg Instruction: 3 x 2 mg tablets Condition: Sunday Dose/Route: 4 mg Instruction: 2 x 2 mg tablets Condition: Sunday Dose/Route: 4 mg Instruction: 2 x 2 mg tablets Condition: Sunday (Week Two) Dose/Route: 2 mg Instruction: 1 x 2 mg tablet Condition: Sunday Dose/Route: 4 mg Instruction: 2 x 2 mg tablets Condition: Sunday Dose/Route: 4 mg Instruction: 2 x 2 mg tablets Condition: Sunday Dose/Route: 2 mg Instruction: 1 x 2 mg tablet Condition: Dose/Route: 4 mg Instruction: 2 x 2 mg tablets Condition: Sunday Dose/Route: 4 mg Instruction: 2 x 2 mg tablets Condition: Sunday Dose/Route: 4 mg Instruction: 2 x 2 mg tablets Protocol Text: Adjustment Start Date: 07/20/22 INR Value: 1.9 INR Date: 07/20/22 Recheck Date: 07/27/22 Additional Instructions: increase today's dose, then resume your usual dose, the new cholesterol med may raise you INR - check INR next week avoid greens today they lower your INR. pravastatin 40 mg tablet 40 mg PO DAILY Qty: 90 0RF tadalafil 20 mg tablet 20 mg PO ONCE PRN (Reason: sexual activity) 30 Days Qty: 30 1RF Rx Instructions: On demand medication glipizide 5 mg tablet extended release 24hr 5 mg PO DAILY 30 Days Qty: 30 1RF (DME) lancets Misc See Rx Instructions .ROUTE BID Qty: 100 Rx Instructions: As directed (DME) OneTouch Ultra Blue Test Strip Strip See Rx Instructions .ROUTE BID Qty: 10 Rx Instructions: As directed diclofenac sodium [Voltaren Arthritis Pain] 1 % gel 4 g topical QID PRN (Reason: .Pain) 30 Days Qty: 200 3RF Rx Instructions: apply to single knee, ankle, foot; for foot includes sole/toes/top of foot metoprolol succinate 50 mg tablet extended release 24 hr 50 mg PO DAILY ezetimibe [Zetia] 10 mg tablet 10 mg PO DAILY 30 Days Qty: 30 2RF docusate sodium 100 mg capsule 100 mg PO DAILY PRN (Reason: constipation) tadalafil 10 mg tablet 10 mg PO DAILY 90 Days Qty: 90 1RF Rx Instructions: Daily medication
--- NOTE | 2022-07-20 09:17 | ECG_ITS ---
Test Reason : WEAKNESS Blood Pressure : / mmHG Vent. Rate : 061 BPM Atrial Rate : 000 BPM P-R Int : 000 ms QRS Dur : 082 ms QT Int : 446 ms P-R-T Axes : 000 025 -11 degrees QTc Int : 448 ms Atrial fibrillation Low voltage QRS Cannot rule out Anteroseptal infarct (cited on or before 03-FEB-2019) Abnormal ECG When compared with ECG of 03-FEB-2019 09:46, Questionable change in initial forces of Anterior leads Referred By: Blaise Castellanos Electronically Signed By:Leon Gilbert
--- NOTE | 2022-07-20 09:29 | PC.NURSE ---
Pt is alert/oriented. Reports seeing straight things with a bend from left eye since approx 0845 today/ Denies any other sx. Neuros are intact. Left side of mouth noted with bum and appears with droop however pt states this is baseline from tooth issue. Speech is clear. A fib on tele, rate controlled in 70s. Breathing even/unlabored. Skin pwd. IV established and labs sent.
[2022-07-20 09:33] LABS: MANUAL DIFF FLAG NO
[2022-07-20 09:40] LABS: Basophils Percent Auto 0.4 % (0-2); Eosinophils Absolute Auto 0.2 X10*3/uL (0.0-0.4); Hematocrit 41.5 % (42.0-52.0); Hemoglobin 13.6 g/dl (14.0-18.0); Imm Gran Abs Auto 0.03 X10*3/uL (0.00-0.03); Imm Gran Pct Auto 0.4 % (0.0-0.4); Lymphocytes Absolute Auto 1.2 X10*3/uL (1.2-4.9); Lymphocytes Percent Auto 15.3 % (20-40); Mean Corpuscular HGB Conc 32.8 g/dl (31.0-36.0); Mean Corpuscular Hemoglobin 34.3 pg (27.0-33.0); Mean Corpuscular Volume 104.5 fL (80.0-98.0); Mean Platelet Volume 11.5 fL (9.4-12.4); Monocytes Absolute Auto 0.5 X10*3/uL (0.1-1.2); Monocytes Percent Auto 6.7 % (2-11); Neutrophils Absolute Auto 5.9 x10*3/uL (2.0-8.3); Neutrophils Percent Auto 75.2 % (45-73); Platelet Count 160 X10*3/uL (160-400); Red Blood Count 3.97 X10*6/uL (4.60-5.80); Red Cell Distribution Width 13.7 % (11.0-16.0); White Blood Count 7.9 X10*3/uL (4.8-10.8)
[2022-07-20 09:42] LABS: INTERNATIONAL NORM RATIO 1.8 (0.9-1.1); Prothrombin Time 21.1 SEC (10.0-13.1)
[2022-07-20 09:45] LABS: Partial Thromboplastin Time 44.2 SEC (26.0-36.4)
[2022-07-20 10:00] LABS: COVID-19 Test Negative (Negative); IDNOW Serial# 08D9AD1C
[2022-07-20 10:03] LABS: IDNOW Serial# BCCEAD1C; Influenza A Negative (Negative); Influenza B2 Negative (Negative)
[2022-07-20 11:33] LABS: Alanine Aminotransferase 19 U/L (0-40); Albumin Level 4.3 g/dL (3.5-5.0); Alkaline Phosphatase 82 U/L (39-117); Anion Gap 13 (12-20); Aspartate Amino Transferase 23 U/L (5-37); Blood Urea Nitrogen 32 mg/dL (9-16); Calcium 9.2 mg/dL (8.4-10.2); Carbon Dioxide 28 mmol/L (22-29); Chloride 107 mmol/L (96-108); Creatinine Clr Calc Pharmacy 24.4; Estimated Glomerular Filt Rate 29; Glucose Random 100 mg/dL (60-115); Lipase 18 U/L (8-78); Potassium 4.2 mmol/L (3.3-5.1); Sodium 144 mmol/L (135-145); Total Protein 6.8 g/dL (6.5-8.0)
[2022-07-20 12:00] VITALS: BP 145/72; PULSE 68; RESP 13; TEMP 36.6; O2SAT 99
== END 2022-07-20 12:52 | disposition home or self-care (01) ==
PROVIDERS: Emergency Provider Emergency Medicine Emergency Medical Services; PCP Family Medicine
DX: H53.9 Unspecified visual disturbance (principal); Z20.822 Contact with and (suspected) exposure to COVID-19; E11.9 Type 2 diabetes mellitus without complications; I10 Essential (primary) hypertension; Z79.02 Long term (current) use of antithrombotics/antiplatelets; Z79.899 Other long term (current) drug therapy; I48.0 Paroxysmal atrial fibrillation; Z51.81 Encounter for therapeutic drug level monitoring; Z79.01 Long term (current) use of anticoagulants
CPT/HCPCS: 70450; 80053; 83690; 85025; 85610; 85730; 87502; 87635; 93005; 99211; 99284; 99285

== ENCOUNTER 2022-07-21 07:59 | Outpatient (REF) | payer MEDICARE, SELFPAY ==
--- NOTE | ~2022-07-21 | XR_ITS ---
EXAMINATION: XR CHEST 2 VIEWS CLINICAL INFORMATION: Circulatory system symptoms and signs. COMPARISON: CT chest dated 04/20/2022; chest radiograph dated 07/10/2019. TECHNIQUE: Frontal and lateral views of the chest were obtained. FINDINGS: The heart, great vessels, pulmonary vasculature and mediastinum are normal. The lungs show no focal infiltrate, effusion or pneumothorax. There is moderately severe elevation of the right hemidiaphragm. A benign, calcified left upper lobe granuloma is redemonstrated. There is no acute osseous abnormality. XR/XR chest 2V IMPRESSION: No active cardiopulmonary disease. There is no significant interim change.
== END 2022-07-21 08:00 | disposition home or self-care (01) ==
LOC: HO.XRAY 07:59
PROVIDERS: PCP Family Medicine; Visit Provider Family Medicine
DX: R09.89 Other specified symptoms and signs involving the circulatory and respiratory systems (principal)
CPT/HCPCS: 71046

== ENCOUNTER 2022-07-25 15:40 | Outpatient (REF) | payer MEDICARE, SELFPAY ==
[2022-07-25 17:41] LABS: Anion Gap 15 (12-20); Blood Urea Nitrogen 32 mg/dL (9-16); Calcium 9.7 mg/dL (8.4-10.2); Carbon Dioxide 30 mmol/L (22-29); Chloride 106 mmol/L (96-108); Estimated Glomerular Filt Rate 33; Potassium 4.8 mmol/L (3.3-5.1); Sodium 146 mmol/L (135-145)
== END 2022-07-25 15:41 | disposition home or self-care (01) ==
LOC: HO.LAB 15:40
PROVIDERS: PCP Family Medicine; Visit Provider Internal Medicine Nephrology
DX: I12.9 Hypertensive chronic kidney disease with stage 1 through stage 4 chronic kidney disease, or unspecified chronic kidney disease (principal); N18.31 Chronic kidney disease, stage 3a
CPT/HCPCS: 36415; 80051; 82310; 82565; 84520

== ENCOUNTER → 2022-07-27 08:03 | Outpatient (BNVA) | payer MEDICARE, SELFPAY | PROVIDERS: PCP Family Medicine; Visit Provider Internal Medicine | DX: I48.0 Paroxysmal atrial fibrillation (principal); Z79.01 Long term (current) use of anticoagulants; Z51.81 Encounter for therapeutic drug level monitoring | CPT/HCPCS: 85610; 99211 ==

== ENCOUNTER → 2022-08-10 08:03 | Outpatient (BNVA) | payer MEDICARE, SELFPAY | PROVIDERS: PCP Family Medicine; Visit Provider Internal Medicine | DX: I48.0 Paroxysmal atrial fibrillation (principal); Z79.01 Long term (current) use of anticoagulants; Z51.81 Encounter for therapeutic drug level monitoring | CPT/HCPCS: 85610; 99211 ==

== ENCOUNTER 2022-08-31 10:45 | Outpatient (REF) | payer MEDICARE, SELFPAY ==
--- NOTE | ~2022-08-31 | XR_ITS ---
EXAMINATION: XR CHEST CLINICAL INFORMATION: Cough COMPARISON: 07/21/2022 TECHNIQUE: 2 views of the chest were obtained. FINDINGS: Mild diffuse peribronchial vascular opacities may reflect edema or atypical infection. Left upper lobe calcified granuloma again noted. Unchanged cardiomegaly. XR/XR chest 2V IMPRESSION: Mild diffuse peribronchial vascular opacities may reflect edema or atypical infection.
[2022-08-31 13:35] LABS: Free T4 (Free Thyroxine) 1.65 ng/dL (0.71-1.85); Thyroid Stimulating Hormone 0.56 uIU/mL (0.32-4.0)
[2022-09-02 08:53] LABS: Triiodothyronine T3 Total 120 ng/dL (76-181)
== END 2022-08-31 10:46 | disposition home or self-care (01) ==
LOC: HO.XRAY 10:45
PROVIDERS: PCP Family Medicine; Visit Provider Family Medicine
DX: R05.9 Cough, unspecified (principal); E03.9 Hypothyroidism, unspecified; I48.91 Unspecified atrial fibrillation; I35.0 Nonrheumatic aortic (valve) stenosis; I25.10 Atherosclerotic heart disease of native coronary artery without angina pectoris; I10 Essential (primary) hypertension; Z98.890 Other specified postprocedural states
CPT/HCPCS: 36415; 71046; 84439; 84443; 84480; 99212

== ENCOUNTER → 2022-09-07 08:03 | Outpatient (BNVA) | payer MEDICARE, SELFPAY | PROVIDERS: PCP Family Medicine; Visit Provider Internal Medicine | DX: I48.0 Paroxysmal atrial fibrillation (principal); Z79.01 Long term (current) use of anticoagulants; Z51.81 Encounter for therapeutic drug level monitoring | CPT/HCPCS: 85610; 99211 ==

== ENCOUNTER 2022-09-20 06:32 | Outpatient (REF) | payer MEDICARE, SELFPAY ==
[2022-09-20 08:07] LABS: Anion Gap 12 (12-20); Blood Urea Nitrogen 26 mg/dL (9-16); Calcium 9.2 mg/dL (8.4-10.2); Carbon Dioxide 26 mmol/L (22-29); Chloride 111 mmol/L (96-108); Cholesterol 120 mg/dL; Estimated Glomerular Filt Rate 50; Glucose Random 90 mg/dL (60-115); HDL Cholesterol 30 mg/dL; LDL Cholesterol Calculated 76 mg/dl; Potassium 4.4 mmol/L (3.3-5.1); Sodium 145 mmol/L (135-145); Triglycerides 74 mg/dL
[2022-09-20 08:12] LABS: Free T4 (Free Thyroxine) 1.56 ng/dL (0.71-1.85)
[2022-09-20 08:13] LABS: Cortisol Random 15.4 ug/dL
[2022-09-20 08:21] LABS: Osmolality, Serum 308 mosm/kg (281-305)
[2022-09-20 08:23] LABS: Thyroid Stimulating Hormone 0.12 uIU/mL (0.32-4.0)
[2022-09-22 09:54] LABS: Follicle Stimulating Hormone 44.2 mIU/mL (1.6-8.0); Lutenizing Hormone 25.5 mIU/mL (1.6-15.2); Sex Hormone Binding Globulin 72 nmol/L (22-77); Triiodothyronine T3 Total 99 ng/dL (76-181)
[2022-09-27 13:23] LABS: Adrenocorticotropic Hormone 20 pg/mL (6-50); Testosterone, Free 26.1 pg/mL (30.0-135.0); Testosterone, Total 261 ng/dL (250-1100)
[2022-09-29 15:23] LABS: IGF-1 (Somatomedin C) 123 ng/mL (34-246); IGF-1 Z Score (Male) 0.4 SD (-2.0 - +2.0)
== END 2022-09-20 06:33 | disposition home or self-care (01) ==
LOC: HO.LAB 06:32
PROVIDERS: PCP Family Medicine; Visit Provider Internal Medicine
DX: Z00.00 Encounter for general adult medical examination without abnormal findings (principal); I25.10 Atherosclerotic heart disease of native coronary artery without angina pectoris; D35.2 Benign neoplasm of pituitary gland
CPT/HCPCS: 36415; 80048; 80061; 82024; 82533; 83001; 83002; 83930; 84146; 84270; 84305; 84402; 84403; 84439; 84443; 84480

== ENCOUNTER → 2022-09-21 09:43 | Outpatient (REF) | payer MEDICARE, SELFPAY ==
--- NOTE | 2022-09-21 09:47 | CA_ITS ---
Transthoracic Echocardiogram Patient (Last, First, Middle): [place] Rivers R Gender: Male Date of : 1935 Age: 87 Procedure Date: 09/21/2022 Procedure Type: Transthoracic Echocardiogram Location: OP Height: 165.1 cm Weight: 81.19 kg BSA: 1.89 m2 Heart Rate: 69 bpm BP: 142 / 68 mmHg Die Trimmer: SB Referring MD: Cecilia Ricardo PREP MANAGERRomario Symptoms: I35.0 - Nonrheumatic aortic (valve) stenosis Study Quality: Adequate ECG Rhythm: Atrial Fibrillation Conclusions: - The left ventricular systolic function is normal. The calculated ejection fraction is 56% by biplane method. - There is mild to moderate aortic valve stenosis. - There is mild mitral valve regurgitation. - There is mild tricuspid valve regurgitation. - Mild pulmonary hypertension is present. - There is a small loculated pericardial effusion overlying the left ventricle. Findings Left Ventricle Normal left ventricular cavity size. There is moderately increased left ventricular wall thickness. The left ventricular systolic function is normal. The calculated ejection fraction is 56% by biplane method. There is no evidence of regional wall motion abnormalities. Diastolic function is indeterminate on the basis of available data. Right Ventricle Normal right ventricular cavity size and systolic function. Atria Both atria are normal in size. Aortic Valve There is moderate calcification of the aortic valve. There is mild to moderate aortic valve stenosis. The mean gradient is 8 mmHg. The aortic valve area is 1.43 cm2. There is no aortic valve regurgitation. Dimensionless index 0.44. Mitral Valve There is mild mitral annular calcification. There is mild mitral valve regurgitation. There is no mitral valve stenosis. Pulmonic Valve There is trace pulmonic valve regurgitation. Tricuspid Valve Normal tricuspid valve structure. There is mild tricuspid valve regurgitation. Mild pulmonary hypertension is present. Great Vessels The asc aorta is normal in size. Venous The inferior vena cava is normal in size. Pericardium/Pleural There is a small loculated pericardial effusion overlying the left ventricle. Prior Study Comparison No significant change compared to prior study dated: 05/12/2021. Measurements 2D Linear Measurements IVSd: 1.21 0.6-0.9/0.6-1.0 cm LVIDd: 3.93 3.9-5.3/4.2-5.9 cm LVIDd Index: 2.08 2.4-3.2/2.2-3.1 cm/m2 LVIDs: 2.24 2.0-3.6 cm LVPWd: 1.44 0.7-1.1 cm LA Diam: 4.50 2.7-3.8/3.0-4.0 cm LAIDs Index: 2.38 1.5-2.3 cm/m2 LV Mass: 233.16 67-162/88-224 g LV Mass Index: 123.36 43-95/49-115 g/m2 LVOT Diam: 2.00 3.0+(-)1.3 cm 2D Systolic Function EF 4C: 57.70 >55% EF 2C: 53.30 >55% EF BiP: 55.50 >55% Mitral Valve MV Pk E: 1.15 MV PK A: 0.42 MV Decel Time: 168.00 E/A: 2.80 E'Lateral: 7.43 E'Medial: 7.18 E/E' Med: 16.00 E/E' Lat: 15.50 PHT: 49.00 MVA PHT: 4.49 Decel [place]: 7.12 Aortic Valve AoV Pk Avelino: 1.89 AoV Mn Avelino: 1.36 AoV VTI: 0.41 AoV Pk Grad: 14.00 Aov Mn Grad: 8.00 RASHID Cont.VTI: 1.43 LVOT LVOT Pk Avelino: 0.84 LVOT Mn Avelino: 0.61 LVOT VTI: 0.19 LVOT Pk Grad: 3.00 LVOT Mn Grad: 2.00 LVOT Diam: 2.00 LVOT Area: 3.14 Diastolic Function MV Pk E: 1.15 MV Pk A: 0.42 E/A: 2.80 E'Medial: 7.18 E/E' Med: 16.00 E' Laterial: 7.43 E/E' Lat: 15.50 Right Ventricle TAPSE (mm): 17.30 TVS' Avelino: 14.30 Tricuspid Valve TR Pk Avelino: 2.78 TR Pk Grad: 31.00 RA Press: 8.00 RVSP: 39.00 Great Vessels Aorta Sinus of Valsalva: 2.90 2.0-3.5 cm Ao Asc: 3.10 2.1-3.4 cm Pulmonary Valve PV Pk Avelino: 0.99 Peak PV Grad: 4.00 Updated in Other Vendor System with Status of Final Kailash Quinn MD electronically signed on 09/21/2022 1:33:06 PM with status of Final
== END ==
LOC: HO.CARD 09:43
PROVIDERS: PCP Family Medicine; Visit Provider Nurse Practitioner Family
DX: I35.0 Nonrheumatic aortic (valve) stenosis (principal); I48.0 Paroxysmal atrial fibrillation; Z51.81 Encounter for therapeutic drug level monitoring; Z79.01 Long term (current) use of anticoagulants
CPT/HCPCS: 85610; 93306; 99211

== ENCOUNTER 2022-09-21 10:54 | Emergency (ER) | payer MEDICARE, SELFPAY ==
--- NOTE | 2022-09-21 | ECG_ITS ---
Test Reason : dizziness Blood Pressure : / mmHG Vent. Rate : 063 BPM Atrial Rate : 000 BPM P-R Int : 000 ms QRS Dur : 086 ms QT Int : 452 ms P-R-T Axes : 000 050 -04 degrees QTc Int : 462 ms Atrial fibrillation Low voltage QRS Septal infarct (cited on or before 03-FEB-2019) Abnormal ECG When compared with ECG of 20-JUL-2022 09:33, No significant change was found Referred By: Generic ED Physician Electronically Signed By:Leon Gilbert
--- NOTE | ~2022-09-21 | CT_ITS ---
EXAMINATION: CT HEAD WITHOUT CONTRAST CLINICAL INFORMATION: Dizziness COMPARISON: July 20, 2022 and MRI of October 25, 2021 TECHNIQUE: Contiguous axial imaging was performed from the skull base to vertex without intravenous administration of contrast. This CT examination was performed using dose optimization techniques as appropriate, variously including the following: *Automated exposure control *Adjustment of mA and/or kV according to patient size (this includes techniques or standardized protocols for targeted exams where dose is matched to indication/reason for exam; i.e. extremities or head) *Use of iterative reconstruction technique DLP: 657 mGy-cm FINDINGS: No intracranial hemorrhage is identified. No significant mass effect or midline structure shift. No abnormal extra-axial fluid collection. Gannon-white matter interface is maintained. There is prominence of ventricles, sulci, and cisterns consistent with some atrophic change. There is a small lacunar infarct seen within the right caudate head which is chronic. Calvarium intact. Visualized paranasal sinuses and mastoid air cells are aerated. Pterygoid plates intact. No significant temporomandibular joint abnormality. Carotid and vertebral artery calcifications present. CT/CT head/brain wo IV con IMPRESSION: No acute intracranial pathology.
[2022-09-21 11:00] VITALS: BP 157/84; PULSE 73; RESP 18; TEMP 36.8; O2SAT 99; BMI 28.9
[2022-09-21 11:07] VITALS: BP 148/69; PULSE 70; RESP 18; TEMP 36.5; O2SAT 98
--- NOTE | 2022-09-21 11:19 | ED_ITS ---
HPI - Dizziness General Chief Complaint: Dizziness Stated Complaint: veritgo Time Seen by Provider: 09/21/22 11:18 Source: patient Mode of arrival: ambulatory Limitations: no limitations History of Present Illness HPI Narrative: 87 y/o male with history of DM2, afib on Coumadin, CAD, aortic stenosis (mild- mod on ECHO 10/26), BPH, hypogonadism, Brooklet's disease, hypothyroidism, HTN who presents to the ER for evaluation of dizziness and sensation of room spinning that started at 1am today when he rolled over in bed. He states the ceiling was spinning. It has been waxing and waning since. It is worse when he stands up and walks around and improved when he is still and laying down. He denies any associated weakness, numbness, tingling, headache, nausea or vomiting. No history of vertigo. He went for ECHO today and had worsening symptoms when changing positions in the bed. MD elicited complaint: dizziness Onset (ago): hour(s) (10) Timing: sudden onset Severity: moderate Description: room spinning Context: change in body position History of similar symptoms: No Exacerbating factors: movement/ambulation, change in body position and standing Relieving factors: remaining still and lying down Associated symptoms: denies other symptoms Related Data Home Medications Medication Instructions Recorded Confirmed blood sugar diagnostic #10 ea 02/24/20 09/21/22 lancets #100 ea 02/24/20 09/21/22 docusate sodium 100 mg capsule 100 mg PO DAILY PRN constipation 11/18/20 09/21/22 carboxymethylcellulose sodium 0.5 1 drp ophthalmic (eye) BID 08/15/22 09/21/22 % eye drops (Refresh Tears) carboxymethylcellulose sodium 1 % 1 drp ophthalmic (eye) QID 08/15/22 09/21/22 eye drops (Artificial Tears (carboxymethylcellulose)) Previous Rx's Medication Instructions Recorded blood sugar diagnostic (OneTouch 1 strip miscellaneous BID for 03/09/21 Ultra Test strips) diabetes mellitus 1 month #200 ea lisinopril 20 mg tablet 20 mg PO DAILY #90 tabs 08/10/21 dutasteride 0.5 mg capsule 0.5 mg PO DAILY 90 days #90 caps 04/04/22 diclofenac sodium 1 % topical gel 4 g topical QID PRN .Pain 30 days 04/12/22 (Voltaren Arthritis Pain) #200 grams tadalafil 10 mg tablet 10 mg PO DAILY erectile 05/03/22 dysfunction 90 days #90 tabs warfarin 2 mg tablet 4 mg PO DAILY #60 tabs 05/28/22 tadalafil 20 mg tablet 20 mg PO ONCE PRN sexual activity 06/20/22 30 days #30 tabs amlodipine 10 mg tablet 5 mg PO DAILY 90 days #45 tabs 07/24/22 bumetanide 1 mg tablet 1 mg PO Q OTHER DAY #90 tabs 08/10/22 betamethasone valerate 0.1 % lotion 1 appl topical BID PRN skin 08/15/22 irritation 14 days #60 mL levothyroxine 150 mcg tablet 150 mcg PO DAILY 30 days #30 tabs 08/15/22 glipizide 5 mg tablet, extended 5 mg PO DAILY 30 days #30 tabs 08/23/22 release 24 hr lancets (OneTouch UltraSoft #200 ea 08/23/22 Lancets) pravastatin 40 mg tablet 40 mg PO DAILY #90 tabs 09/07/22 meclizine 25 mg tablet 25 mg PO BID PRN dizziness #14 tabs 09/21/22 Allergies Allergy/AdvReac Type Severity Reaction Status Date / Time hydralazine [Hydralazine] Allergy Unknown SEVERE Verified 09/21/22 08:15 HEADACHE Review of Systems Review of Systems: Yes all other systems are reviewed and are negative [facility] Past Medical History Medical History Aortic stenosis Atrial fibrillation CAD (coronary artery disease) Brooklet's disease Diabetes type 2, controlled Edema Elevated diaphragm Elevated morning serum cortisol level Elevated prostate specific antigen between 10 and 19 ng/ml Pulmonary nodules RUQ pain Wheezing Surgical History History of cardiac cath Hx of colonoscopy Hx of tonsillectomy Family History Family History Father Colon cancer Mother HTN (hypertension) Type 2 diabetes mellitus Brother No problems noted. Sister No problems noted. Son No problems noted. Son No problems noted. Son No problems noted. Daughter No problems noted. Daughter No problems noted. Social History Social History Housing: Apartment Alcohol intake: former Year quit: 1979 Patient Tobacco Use Status: Former Tobacco user Quit Date: 1979 Years Smoked: 45+ e-Cigarette/Vaping Use: Never Used Second Hand Smoke Exposure: No Advance Directives: No Advance Directives Information Provided: Yes service: Yes Current occupational status: retired Current occupational exposures/hazards: No Cognitive needs: No Hearing needs: Yes Vision needs: No Physical Exam Vital Signs: Vital Signs: Last Vital Signs Temp 97.7 F 09/21/22 11:07 Pulse 78 09/21/22 13:54 Resp 18 09/21/22 11:07 BP 143/76 H 09/21/22 13:54 Pulse Ox 98 09/21/22 11:07 O2 Del Method Room Air 09/21/22 11:07 BMI result Body Mass Index 28.9 Appearance: Alert. Oriented X3. No acute distress. Head: normocephalic, atraumatic. Eyes: Pupils equal, round and reactive to light. EOMI. no nystagmus ENT: Pharynx normal. No tonsillar swelling or exudate. Neck: Normal inspection. Neck supple. CVS: Normal heart rate and rhythm. Pulses normal. Respiratory: No respiratory distress. Breath sounds normal. Abdomen: Soft and nontender. +BS x4 Skin: Skin warm and dry. Normal skin color. Normal skin turgor. No rashes. Extremities: No lower extremity edema. No joint swelling. Neuro/psych: Oriented X 3. No motor deficit. No sensory deficit. CN II-XII intact. Normal speech and cognition. Normal finger to nose and heel to benoit bilaterally. Steady gait Medications Administered Discontinued Medications Generic Name Dose Route Start Last Admin Trade Name Freq PRN Reason Stop Dose Admin Meclizine HCl 25 mg 09/21/22 11:44 09/21/22 11:59 Meclizine Hcl 25 Mg Tablet PO 09/21/22 11:45 25 mg ONCE ONE Administration Medical Decision Making Medical Decision Making MDM Narrative: 87 y/o male with history of DM2, afib on Coumadin, CAD, aortic stenosis (mild- mod on ECHO 10/26), BPH, hypogonadism, Jayy's disease, hypothyroidism, HTN who presents to the ER for evaluation of dizziness and sensation of room spinning that started at 1am today when he rolled over in bed. NO current dizziness Neurologically intact. He is on coumadin. Doubt posterior stroke. Clinical presentation most c/w positional vertigo. CT head is without bleed. Orthostatic VS are negative. he feels well when he changes positions slowly, no dizziness. He is feeling well. He was counseled on most likely dx as well as return precautions. he is stable for d/c home. Differential Diagnosis Differential Diagnoses: The differential diagnosis associated with the presentation includes vertigo, dehydration, orthostatic hypotension, bradycardia, arrhythmia, valvular pathology, metabolic derangement, less likely posterior CVA or TIA Admission/Observation Consideration of admission/observation: Escalation of care including admis wes/observation considered dizziness in elderly male w/ cardiac history Lab Data MDM Lab Attestation statement: I reviewed the patient's lab results. 09/21/22 11:20 09/21/22 11:20 Labs: Lab Results 09/21/22 09/21/22 09/21/22 Range/Units 11:20 11:20 11:20 WBC 7.6 (4.8-10.8) X10*3/uL RBC 3.08 L D (4.60-5.80) X10*6/uL Hgb 10.8 L D (14.0-18.0) g/dl Hct 32.6 L D (42.0-52.0) % MCV 105.8 H (80.0-98.0) fL MCH 35.1 H (27.0-33.0) pg MCHC 33.1 (31.0-36.0) g/dl RDW 13.7 (11.0-16.0) % Plt Count 218 D (160-400) X10*3/uL MPV 10.1 (9.4-12.4) fL Immature Gran % (Auto) 0.3 (0.0-0.4) % Neut % (Auto) 77.7 H (45-73) % Lymph % (Auto) 12.6 L (20-40) % Hudson % (Auto) 7.2 (2-11) % Eos % (Auto) 1.8 (0-4) % Baso % (Auto) 0.4 (0-2) % Lymph # (Auto) 1.0 L (1.2-4.9) X10*3/uL Hudson # (Auto) 0.6 (0.1-1.2) X10*3/uL Eos # (Auto) 0.1 (0.0-0.4) X10*3/uL Baso # (Auto) 0.0 (0.0-0.2) X10*3/uL Abs Immat Gran (auto) 0.02 (0.00-0.03) X10*3/uL Absolute Neuts (auto) 5.9 (2.0-8.3) x10*3/uL Absolute Nucleated RBC 0.000 (0.0-0.012) X10*3/uL Nucleated RBC % (auto) 0.0 (0.0-0.2) /100WBC PT (10.0-13.1) SEC INR (0.9-1.1) Sodium 145 (135-145) mmol/L Potassium 4.6 (3.3-5.1) mmol/L Chloride 110 H (96-108) mmol/L Carbon Dioxide 25 (22-29) mmol/L Anion Gap 15 (12-20) BUN 27 H (9-16) mg/dL Creatinine 1.42 H (0.5-1.4) mg/dL Estim Creat Clear Calc 36.6 Estimated GFR 47 Random Glucose 149 H (60-115) mg/dL Calcium 9.8 D (8.4-10.2) mg/dL Total Bilirubin 1.0 (0.0-1.0) mg/dL AST 17 (5-37) U/L ALT 13 (0-40) U/L Alkaline Phosphatase 87 (39-117) U/L Troponin I High Sens 32.0 (<3.5-35.0) ng/L Total Protein 6.4 L (6.5-8.0) g/dL Albumin 3.9 (3.5-5.0) g/dL 09/21/22 Range/Units 11:27 WBC (4.8-10.8) X10*3/uL RBC (4.60-5.80) X10*6/uL Hgb (14.0-18.0) g/dl Hct (42.0-52.0) % MCV (80.0-98.0) fL MCH (27.0-33.0) pg MCHC (31.0-36.0) g/dl RDW (11.0-16.0) % Plt Count (160-400) X10*3/uL MPV (9.4-12.4) fL Immature Gran % (Auto) (0.0-0.4) % Neut % (Auto) (45-73) % Lymph % (Auto) (20-40) % Hudson % (Auto) (2-11) % Eos % (Auto) (0-4) % Baso % (Auto) (0-2) % Lymph # (Auto) (1.2-4.9) X10*3/uL Hudson # (Auto) (0.1-1.2) X10*3/uL Eos # (Auto) (0.0-0.4) X10*3/uL Baso # (Auto) (0.0-0.2) X10*3/uL Abs Immat Gran (auto) (0.00-0.03) X10*3/uL Absolute Neuts (auto) (2.0-8.3) x10*3/uL Absolute Nucleated RBC (0.0-0.012) X10*3/uL Nucleated RBC % (auto) (0.0-0.2) /100WBC PT 23.0 H (10.0-13.1) SEC INR 2.0 H (0.9-1.1) Sodium (135-145) mmol/L Potassium (3.3-5.1) mmol/L Chloride (96-108) mmol/L Carbon Dioxide (22-29) mmol/L Anion Gap (12-20) BUN (9-16) mg/dL Creatinine (0.5-1.4) mg/dL Estim Creat Clear Calc Estimated GFR Random Glucose (60-115) mg/dL Calcium (8.4-10.2) mg/dL Total Bilirubin (0.0-1.0) mg/dL AST (5-37) U/L ALT (0-40) U/L Alkaline Phosphatase (39-117) U/L Troponin I High Sens (<3.5-35.0) ng/L Total Protein (6.5-8.0) g/dL Albumin (3.5-5.0) g/dL Independent Interpretation I performed an independent interpretation of an: EKG and CT Scan Interpretation: no bleed or stroke seen, agree w/ radiology read ekg with atrial fibrillation, low voltage qrs, hr 63 bpm, no ST segment elevations or depressions, no change from prior 07/27 Radiology Impression Discussion of test interpretation with radiology: I have reviewed the radiologist's reading. Radiologist Impression: EXAMINATION: CT HEAD WITHOUT CONTRAST CLINICAL INFORMATION: Dizziness? COMPARISON: July 20, 2022 and MRI of October 25, 2021 TECHNIQUE: Contiguous axial imaging was performed from the skull base to vertex without intravenous administration of contrast. This CT examination was performed using dose optimization techniques as appropriate, variously including the following: *Automated exposure control *Adjustment of mA and/or kV according to patient size (this includes techniques or standardized protocols for targeted exams where dose is matched to indication/reason for exam; i.e. extremities or head) *Use of iterative reconstruction technique DLP: 657 mGy-cm FINDINGS: No intracranial hemorrhage is identified. No significant mass effect or midline structure shift. No abnormal extra-axial fluid collection. Gannon-white matter interface is maintained. There is prominence of ventricles, sulci, and cisterns consistent with some atrophic change. There is a small lacunar infarct seen within the right caudate head which is chronic. Calvarium intact. Visualized paranasal sinuses and mastoid air cells are aerated. Pterygoid plates intact. No significant temporomandibular joint abnormality. Carotid and vertebral artery calcifications present. ? CT/CT head/brain wo IV con IMPRESSION: No acute intracranial pathology. ? External Record Review External record reviewed: Outpatient record, Prior outpatient labs and Prior outpatient radiology Tests considered The following testing was considered but not selected: MRI Prescription Management I considered prescription management with: Other (meclizine) Chronic Conditions Patient?s care impacted by: Hypertension and Other (afib) Discharge Plan Discharge Clinical Impression: Benign paroxysmal positional vertigo Patient Disposition: Home, Self-Care Instructions: Benign Paroxysmal Positional Vertigo (ED) Additional Instructions: Your lab workup was unremarkable. Your EKG showed you are in atrial fibrillation Your CT scan was normal Your dizziness is most likely from vertigo Take the prescribed mediation as needed for dizziness When changing positions do so slowly Follow up with your primary care doctor If you develop new or worsening symptoms call 911 or come back to the ER for further evaluation. Prescriptions: New meclizine 25 mg tablet 25 mg PO BID PRN (Reason: dizziness) Qty: 14 0RF No Action OneTouch Ultra Test Strip 1 strip miscellaneous BID 30 Days Qty: 200 5RF lisinopril 20 mg tablet 20 mg PO DAILY Qty: 90 4RF dutasteride 0.5 mg capsule 0.5 mg PO DAILY 90 Days Qty: 90 1RF warfarin 2 mg tablet 4 mg PO DAILY Qty: 60 12RF Protocol: Dose Management Condition: Sunday (Week One) Dose/Route: 2 mg Instruction: 1 x 2 mg tablet Condition: Sunday Dose/Route: 4 mg Instruction: 2 x 2 mg tablets Condition: Sunday Dose/Route: 4 mg Instruction: 2 x 2 mg tablets Condition: Sunday Dose/Route: 2 mg Instruction: 1 x 2 mg tablet Condition: Dose/Route: 6 mg Instruction: 3 x 2 mg tablets Condition: Sunday Dose/Route: 4 mg Instruction: 2 x 2 mg tablets Condition: Sunday Dose/Route: 4 mg Instruction: 2 x 2 mg tablets Condition: Sunday (Week Two) Dose/Route: 2 mg Instruction: 1 x 2 mg tablet Condition: Sunday Dose/Route: 4 mg Instruction: 2 x 2 mg tablets Condition: Sunday Dose/Route: 4 mg Instruction: 2 x 2 mg tablets Condition: Sunday Dose/Route: 2 mg Instruction: 1 x 2 mg tablet Condition: Dose/Route: 4 mg Instruction: 2 x 2 mg tablets Condition: Sunday Dose/Route: 4 mg Instruction: 2 x 2 mg tablets Condition: Sunday Dose/Route: 4 mg Instruction: 2 x 2 mg tablets Protocol Text: Adjustment Start Date: 09/21/22 INR Value: 1.9 INR Date: 09/21/22 Recheck Date: 10/05/22 Additional Instructions: INR is just below range increase does today to 6mg then resume usual dosing balance greens and reds in diet, be consistent, no green today tadalafil 20 mg tablet 20 mg PO ONCE PRN (Reason: sexual activity) 30 Days Qty: 30 1RF Rx Instructions: On demand medication amlodipine 10 mg tablet 5 mg PO DAILY 90 Days Qty: 45 3RF (DME) lancets [OneTouch UltraSoft Lancets] Misc See Rx Instructions .Route Qty: 200 4RF Rx Instructions: As directed to test blood sugar twice a day. Ninety day supply glipizide 5 mg tablet extended release 24hr 5 mg PO DAILY 30 Days Qty: 30 1RF pravastatin 40 mg tablet 40 mg PO DAILY Qty: 90 0RF (DME) lancets Misc See Rx Instructions .ROUTE BID Qty: 100 Rx Instructions: As directed (DME) OneTouch Ultra Blue Test Strip Strip See Rx Instructions .ROUTE BID Qty: 10 Rx Instructions: As directed diclofenac sodium [Voltaren Arthritis Pain] 1 % gel 4 g topical QID PRN (Reason: .Pain) 30 Days Qty: 200 3RF Rx Instructions: apply to single knee, ankle, foot; for foot includes sole/toes/top of foot carboxymethylcellulose sodium [Refresh Tears] 0.5 % drops 1 drp ophthalmic (eye) BID Artificial Tears (cmc) 1 % drops 1 drp ophthalmic (eye) QID levothyroxine 150 mcg tablet 150 mcg PO DAILY 30 Days Qty: 30 11RF betamethasone valerate 0.1 % lotion 1 appl topical BID PRN (Reason: skin irritation) 14 Days Qty: 60 1RF docusate sodium 100 mg capsule 100 mg PO DAILY PRN (Reason: constipation) tadalafil 10 mg tablet 10 mg PO DAILY 90 Days Qty: 90 1RF Rx Instructions: Daily medication bumetanide 1 mg tablet 1 mg PO Q OTHER DAY Qty: 90 2RF Referrals: Patrick Muniz MD [Primary Care Provider] - ([facility])
[2022-09-21 11:25] LABS: MANUAL DIFF FLAG NO
[2022-09-21 11:26] LABS: Basophils Percent Auto 0.4 % (0-2); Eosinophils Absolute Auto 0.1 X10*3/uL (0.0-0.4); Eosinophils Percent Auto 1.8 % (0-4); Hematocrit 32.6 % (42.0-52.0); Hemoglobin 10.8 g/dl (14.0-18.0); Imm Gran Abs Auto 0.02 X10*3/uL (0.00-0.03); Imm Gran Pct Auto 0.3 % (0.0-0.4); Lymphocytes Percent Auto 12.6 % (20-40); Mean Corpuscular HGB Conc 33.1 g/dl (31.0-36.0); Mean Corpuscular Hemoglobin 35.1 pg (27.0-33.0); Mean Corpuscular Volume 105.8 fL (80.0-98.0); Mean Platelet Volume 10.1 fL (9.4-12.4); Monocytes Absolute Auto 0.6 X10*3/uL (0.1-1.2); Monocytes Percent Auto 7.2 % (2-11); Neutrophils Absolute Auto 5.9 x10*3/uL (2.0-8.3); Neutrophils Percent Auto 77.7 % (45-73); Platelet Count 218 X10*3/uL (160-400); Red Blood Count 3.08 X10*6/uL (4.60-5.80); Red Cell Distribution Width 13.7 % (11.0-16.0); White Blood Count 7.6 X10*3/uL (4.8-10.8)
--- NOTE | 2022-09-21 11:31 | PC.NURSE ---
Alert and oriented, resp even and unlabored. IV established, labs drawn and sent. Afib on the monitor, hx of afib. Provider at bedside for primary eval
[2022-09-21 11:48] LABS: Alanine Aminotransferase 13 U/L (0-40); Albumin Level 3.9 g/dL (3.5-5.0); Alkaline Phosphatase 87 U/L (39-117); Anion Gap 15 (12-20); Aspartate Amino Transferase 17 U/L (5-37); Blood Urea Nitrogen 27 mg/dL (9-16); Calcium 9.8 mg/dL (8.4-10.2); Carbon Dioxide 25 mmol/L (22-29); Chloride 110 mmol/L (96-108); Creatinine Clr Calc Pharmacy 36.6; Estimated Glomerular Filt Rate 47; Glucose Random 149 mg/dL (60-115); Potassium 4.6 mmol/L (3.3-5.1); Sodium 145 mmol/L (135-145); Total Protein 6.4 g/dL (6.5-8.0)
[2022-09-21] MEDS: Meclizine HCl 25 MG TABLET PO (11:59)
[2022-09-21 13:52] VITALS: BP 142/69; PULSE 70
[2022-09-21 13:53] VITALS: BP 147/78; PULSE 70
[2022-09-21 13:54] VITALS: BP 143/76; PULSE 78
== END 2022-09-21 14:17 | disposition home or self-care (01) ==
PROVIDERS: Physician Assistant; Emergency Provider Student in an Organized Health Care Education/Training Program; PCP Family Medicine
DX: H81.10 Benign paroxysmal vertigo, unspecified ear (principal); E11.9 Type 2 diabetes mellitus without complications; I10 Essential (primary) hypertension; I48.91 Unspecified atrial fibrillation; Z79.01 Long term (current) use of anticoagulants; Z79.899 Other long term (current) drug therapy; Z79.02 Long term (current) use of antithrombotics/antiplatelets
CPT/HCPCS: 36415; 70450; 80053; 84484; 85025; 85610; 93005; 99284; 99285

== ENCOUNTER → 2022-09-27 10:23 | Outpatient (BNVA) | payer MEDICARE, SELFPAY | PROVIDERS: PCP Family Medicine; Visit Provider Internal Medicine | DX: D35.2 Benign neoplasm of pituitary gland (principal); E29.1 Testicular hypofunction; E03.9 Hypothyroidism, unspecified; E24.0 Pituitary-dependent Cushing's disease; Z87.438 Personal history of other diseases of male genital organs; Z79.899 Other long term (current) drug therapy | CPT/HCPCS: 99212 ==

== ENCOUNTER → 2022-10-05 08:07 | Outpatient (BNVA) | payer MEDICARE, SELFPAY | PROVIDERS: PCP Family Medicine; Visit Provider Internal Medicine | DX: I48.0 Paroxysmal atrial fibrillation (principal); Z79.01 Long term (current) use of anticoagulants; Z51.81 Encounter for therapeutic drug level monitoring | CPT/HCPCS: 85610; 99211 ==

== ENCOUNTER → 2022-10-26 08:07 | Outpatient (BNVA) | payer MEDICARE, SELFPAY | PROVIDERS: PCP Family Medicine; Visit Provider Internal Medicine | DX: I48.0 Paroxysmal atrial fibrillation (principal); Z79.01 Long term (current) use of anticoagulants; Z51.81 Encounter for therapeutic drug level monitoring | CPT/HCPCS: 85610; 99211 ==

== ENCOUNTER 2022-10-31 07:38 | Outpatient (REF) | payer MEDICARE, SELFPAY ==
--- NOTE | ~2022-10-31 | XR_ITS ---
EXAMINATION: XR CHEST 2 VIEWS CLINICAL INFORMATION: Cough. COMPARISON: Chest radiographs dated 08/31/2022; CT chest dated 04/20/2022. TECHNIQUE: Frontal and lateral views of the chest were obtained. FINDINGS: The heart, great vessels, pulmonary vasculature and mediastinum are normal. The lungs show no focal infiltrate, effusion or pneumothorax. A benign, calcified granuloma is redemonstrated within the right upper lobe. There is chronic moderately severe elevation of the right hemidiaphragm. There is no acute osseous abnormality. XR/XR chest 2V IMPRESSION: No active cardiopulmonary disease. There is no significant interim change. There is stable chronic elevation of the right hemidiaphragm.
[2022-10-31 09:07] LABS: Anion Gap 16 (12-20); Blood Urea Nitrogen 28 mg/dL (9-16); Calcium 9.9 mg/dL (8.4-10.2); Carbon Dioxide 25 mmol/L (22-29); Chloride 107 mmol/L (96-108); Estimated Glomerular Filt Rate 47; Sodium 144 mmol/L (135-145)
[2022-10-31 09:22] LABS: Alanine Aminotransferase 15 U/L (0-40); Albumin Level 4.3 g/dL (3.5-5.0); Alkaline Phosphatase 90 U/L (39-117); Anion Gap 16 (12-20); Aspartate Amino Transferase 23 U/L (5-37); Bilirubin Total 1.1 mg/dL (0.0-1.0); Blood Urea Nitrogen 28 mg/dL (9-16); Calcium 9.9 mg/dL (8.4-10.2); Carbon Dioxide 25 mmol/L (22-29); Chloride 107 mmol/L (96-108); Cholesterol 134 mg/dL; Estimated Glomerular Filt Rate 47; Glucose Fasting 116 mg/dL (60-99); HDL Cholesterol 39 mg/dL; LDL Cholesterol Calculated 77 mg/dl; Sodium 144 mmol/L (135-145); Total Protein 7.4 g/dL (6.5-8.0); Triglycerides 91 mg/dL
[2022-10-31 09:31] LABS: Free T4 (Free Thyroxine) 1.45 ng/dL (0.71-1.85); Thyroid Stimulating Hormone 0.31 uIU/mL (0.32-4.0)
[2022-11-02 06:39] LABS: Triiodothyronine T3 Total 97 ng/dL (76-181)
[2022-11-02 08:13] LABS: Follicle Stimulating Hormone 53.6 mIU/mL (1.6-8.0); Lutenizing Hormone 42.2 mIU/mL (1.6-15.2)
[2022-11-04 20:33] LABS: Estradiol Ultra Sensitive 32 pg/mL (< OR = 29)
[2022-11-05 16:29] LABS: Testosterone, Free 25.7 pg/mL (30.0-135.0); Testosterone, Total 317 ng/dL (250-1100)
== END 2022-10-31 07:39 | disposition home or self-care (01) ==
LOC: HO.LAB 07:38
PROVIDERS: Urology; Absent Provider Internal Medicine Nephrology; PCP Family Medicine; Visit Provider Family Medicine
DX: I48.0 Paroxysmal atrial fibrillation (principal); Z51.81 Encounter for therapeutic drug level monitoring; Z79.01 Long term (current) use of anticoagulants; E29.1 Testicular hypofunction; E03.9 Hypothyroidism, unspecified; I25.10 Atherosclerotic heart disease of native coronary artery without angina pectoris; E11.9 Type 2 diabetes mellitus without complications; R05.9 Cough, unspecified; I12.9 Hypertensive chronic kidney disease with stage 1 through stage 4 chronic kidney disease, or unspecified chronic kidney disease; N18.31 Chronic kidney disease, stage 3a
CPT/HCPCS: 36415; 71046; 80051; 80053; 80061; 82310; 82565; 82670; 83001; 83002; 84402; 84403; 84439; 84443; 84480; 84520; 85610; 99211

== ENCOUNTER 2022-11-09 06:43 | Outpatient (REF) | payer MEDICARE, SELFPAY ==
[2022-11-09 08:30] LABS: Anion Gap 15 (12-20); Blood Urea Nitrogen 25 mg/dL (9-16); Calcium 9.7 mg/dL (8.4-10.2); Chloride 108 mmol/L (96-108); Estimated Glomerular Filt Rate 38; Glucose Random 246 mg/dL (60-115); Potassium 4.4 mmol/L (3.3-5.1); Sodium 143 mmol/L (135-145)
[2022-11-09 08:35] LABS: Free T4 (Free Thyroxine) 1.35 ng/dL (0.71-1.85); Thyroid Stimulating Hormone 0.18 uIU/mL (0.32-4.0)
[2022-11-09 11:09] LABS: Carbon Dioxide 25 mmol/L (22-29)
== END 2022-11-09 06:44 | disposition home or self-care (01) ==
LOC: HO.LAB 06:43
PROVIDERS: Absent Provider Family Medicine; PCP Family Medicine; Visit Provider Internal Medicine
DX: Z00.00 Encounter for general adult medical examination without abnormal findings (principal); I50.9 Heart failure, unspecified; R05.9 Cough, unspecified; D35.2 Benign neoplasm of pituitary gland
CPT/HCPCS: 36415; 80048; 81001; 83880; 84439; 84443; 84480; 85025

== ENCOUNTER 2022-11-17 09:04 | Outpatient (AMB) | payer MEDICARE, SELFPAY ==
[2022-11-17 09:11] LABS: Prothrombin Time Whole Bld POC 24.7 sec (11.1-13.5); ~PT, ~INR - Anti Coag Clinic 2.1 (0.9-1.1)
--- NOTE | 2022-11-17 09:17 | MHC.OFFVISCO ---
Intake Intake Visit Reasons: Anticoagulation Allergies hydralazine [Hydralazine] Allergy (Unknown, Verified 11/17/22 09:06) SEVERE HEADACHE Medication List - Last Reconciled 11/17/22 by Elisa Jon RN amlodipine 5 mg PO DAILY betamethasone valerate 0.1% 1 appl topical BID PRN 14 days blood sugar diagnostic As directed blood sugar diagnostic (OneTouch Ultra Test strips) 1 strip miscellaneous BID 1 month bumetanide 1 mg PO Q OTHER DAY carboxymethylcellulose sodium 0.5% (Refresh Tears) 1 drp ophthalmic (eye) BID carboxymethylcellulose sodium 1% (Artificial Tears (carboxymethylcellulose)) 1 drp ophthalmic (eye) QID diclofenac sodium 1% (Voltaren Arthritis Pain) 4 grams topical QID PRN 30 days docusate sodium 100 mg PO DAILY PRN dutasteride 0.5 mg PO DAILY 90 days glipizide ER 2.5 mg PO DAILY lancets As directed lancets (OneTouch UltraSoft Lancets) As directed to test blood sugar twice a day. Ninety day supply levothyroxine 125 mcg PO DAILY 30 days lisinopril 10 mg PO DAILY meclizine 25 mg PO BID PRN pravastatin 40 mg PO DAILY tadalafil 10 mg PO DAILY 90 days tadalafil 20 mg PO ONCE PRN 30 days warfarin 4 mg See Protocol PO DAILY Nursing Note INR: 2.1 in therapeutic range Medications and supplements reviewed No changes in health, diet, medications, or supplements, Denies any signs and symptoms of bleeding or bruising or clotting. 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
== END 2022-11-17 09:18 | disposition home or self-care (01) ==
LOC: HO.ACS 09:04
PROVIDERS: PCP Family Medicine; Visit Provider Internal Medicine
DX: Z79.01 Long term (current) use of anticoagulants (principal)

== ENCOUNTER → 2022-11-17 09:04 | Outpatient (BNVA) | payer MEDICARE, SELFPAY | PROVIDERS: PCP Family Medicine; Visit Provider Internal Medicine | DX: I48.0 Paroxysmal atrial fibrillation (principal); Z51.81 Encounter for therapeutic drug level monitoring; Z79.01 Long term (current) use of anticoagulants | CPT/HCPCS: 85610; 99211 ==

== ENCOUNTER 2022-11-30 08:28 | Outpatient (REF) | payer MEDICARE, SELFPAY ==
--- NOTE | ~2022-11-30 | MR_ITS ---
EXAMINATION: MR BRAIN WITHOUT AND WITH CONTRAST CLINICAL INFORMATION: 87-year-old, followup pituitary lesion. COMPARISON: 10/25/2021 MRI. TECHNIQUE: Multiplanar, multisequence MRI of the brain and sella was obtained before and after the intravenous administration of 4 mL Gadavist. FINDINGS: Previously noted 1 mm focus of hypoenhancement adjacent to the superior surface of the anterior pituitary lobe to the left of midline is stable in appearance. The previously noted the small zone of poorly marginated, heterogeneous hypoenhancement on the left side of the gland is again noted and is stable in appearance compared to the previous study. This is difficult to measure due to the lack of well circumscribed margins but measures approximately 3 mm greatest dimension with no definite discrete mass seen at this location. The remainder of the gland enhances homogenously and is stable with a normal appearance to the infundibulum which is deviated slightly to the left, unchanged. The cavernous sinuses enhance symmetrically bilaterally. Signal voids are seen within the adjacent carotid siphons. No significant suprasellar or juxtasellar masses are seen. DWI sequence demonstrates no restricted diffusion to suggest acute or subacute cerebral ischemia. Redemonstrated are multiple foci of FLAIR/T2 signal hyperintensity in the white matter of both cerebral hemispheres, stable in appearance without abnormal enhancement consistent with chronic ischemic microangiopathy. There is a tiny remote cortical infarct in the left occipital lobe which is stable. Punctate T2 hyperintensities in the right mouna with no abnormal enhancement consistent with chronic ischemic microangiopathy are stable. No intracranial mass lesions or pathologic intracranial enhancement seen throughout the remainder of the brain. There is a prominent vein at the lateral aspect of the anterior right temporal lobe which is stable. There is a stable, nonenhancing 5 mm T2 hyperintensity in the left posterior temporal occipital region. There is a stable small remote lacunar infarct in the right caudate head. The ventricular system and subarachnoid spaces are consistent with [id number] generalized diffuse supratentorial brain parenchymal volume loss without hydrocephalus, stable in appearance. Signal voids are seen within the visualized major intracranial vessels. Minor mucosal thickening in the ethmoid complex is stable. Osseous marrow signal intensity appears homogenous. MR/MR head/brain wo/w con IMPRESSION: 1. Stable appearance to the previously noted 1 mm focus of hypoenhancement adjacent to the superior surface of the anterior pituitary lobe to the left of midline which is stable in appearance. 2. Stable appearance to the previously noted 3 mm zone of heterogeneous hypoenhancement on the left side of the pituitary gland without a discrete mass lesion. 3. Chronic ischemic microangiopathy in the white matter of both cerebral hemispheres and in the right mouna, stable in appearance. 4. 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 5. Small nonenhancing T2 hyperintensity in the left posterior temporal occipital region is stable in appearance. 6. No acute intracranial process. No intracranial mass lesions or pathologic intracranial enhancement are seen. 7. [id number] generalized diffuse brain parenchymal volume loss without hydrocephalus stable in appearance. 8. Prominent vein at the lateral aspect of the anterior right temporal lobe stable in appearance.
== END 2022-11-30 08:29 | disposition home or self-care (01) ==
LOC: HO.MRI 08:28
PROVIDERS: PCP Family Medicine; Visit Provider Internal Medicine
DX: D35.2 Benign neoplasm of pituitary gland (principal)
CPT/HCPCS: 70553; A9585

== ENCOUNTER 2022-12-08 08:06 | Outpatient (AMB) | payer MEDICARE, SELFPAY ==
[2022-12-08 08:13] LABS: Prothrombin Time Whole Bld POC 20.9 sec (11.1-13.5); ~PT, ~INR - Anti Coag Clinic 1.7 (0.9-1.1)
--- NOTE | 2022-12-08 08:16 | MHC.OFFVISCO ---
Intake Intake Visit Reasons: Anticoagulation Allergies hydralazine [Hydralazine] Allergy (Unknown, Verified 12/08/22 08:07) SEVERE HEADACHE Medication List - Last Reconciled 12/08/22 by Elisa Cadena RN amlodipine 5 mg PO DAILY betamethasone valerate 0.1% 1 appl topical BID PRN 14 days blood sugar diagnostic As directed blood sugar diagnostic (OneTouch Ultra Test strips) 1 strip miscellaneous BID 1 month bumetanide 1 mg PO Q OTHER DAY carboxymethylcellulose sodium 0.5% (Refresh Tears) 1 drp ophthalmic (eye) BID carboxymethylcellulose sodium 1% (Artificial Tears (carboxymethylcellulose)) 1 drp ophthalmic (eye) QID diclofenac sodium 1% (Voltaren Arthritis Pain) 4 grams topical QID PRN 30 days docusate sodium 100 mg PO DAILY PRN dutasteride 0.5 mg PO DAILY 90 days glipizide ER 2.5 mg PO DAILY lancets As directed lancets (OneTouch UltraSoft Lancets) As directed to test blood sugar twice a day. Ninety day supply levothyroxine 125 mcg PO DAILY 30 days lisinopril 10 mg PO DAILY meclizine 25 mg PO BID PRN pravastatin 40 mg PO DAILY tadalafil 10 mg PO DAILY 90 days tadalafil 20 mg PO ONCE PRN 30 days warfarin 4 mg See Protocol PO DAILY Nursing Note Amb to ACS feeling well Medications and supplements reviewed No changes in health, diet, medications, or supplements Denies any unusual signs and symptoms of bruising, bleeding Denies any new Chest pain, SOB, or clotting INR: 1.7 below therapeutic range Nutritional guidance given: no greens today , ok for reds then balance greens and reds in diet Dose: increase dose today to 6mg then resume usual dosing tomorrow;2mg x 2 days and 4mg x 5 days F/U INR: 2 weeks Patient verbalizes understanding of instructions given with accurate read back/ teach back of dosing Anti-Coag Initial Assessment Social Hx Patient Tobacco Use Status: Former Tobacco user Quit Date: 1979 alcohol intake: former Alcohol intake frequency: does not drink Coding Level of Care Code Est Patient Level 1 Diagnoses Current use of anticoagulant therapy Z79.01 Time Spent (min) 15 Assessment & Plan Assessment & Plan (1) Current use of anticoagulant therapy: Code(s): Z79.01 - penitentiary (current) use of 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
== END 2022-12-08 08:35 | disposition home or self-care (01) ==
LOC: HO.ACS 08:06
PROVIDERS: PCP Family Medicine; Visit Provider Internal Medicine
DX: Z79.01 Long term (current) use of anticoagulants (principal)

== ENCOUNTER → 2022-12-08 08:06 | Outpatient (BNVA) | payer MEDICARE, SELFPAY | PROVIDERS: PCP Family Medicine; Visit Provider Internal Medicine | DX: I48.0 Paroxysmal atrial fibrillation (principal); Z79.01 Long term (current) use of anticoagulants; Z51.81 Encounter for therapeutic drug level monitoring | CPT/HCPCS: 85610; 99211 ==

== ENCOUNTER 2022-12-21 08:16 | Outpatient (AMB) | payer MEDICARE, SELFPAY ==
[2022-12-21 08:24] LABS: ~PT, ~INR - Anti Coag Clinic 2.8 (0.9-1.1)
--- NOTE | 2022-12-21 08:34 | MHC.OFFVISCO ---
Intake Intake Visit Reasons: Anticoagulation Allergies hydralazine [Hydralazine] Allergy (Unknown, Verified 12/21/22 08:17) SEVERE HEADACHE Medication List - Last Reconciled 12/21/22 by Elisa Jon RN amlodipine 5 mg PO DAILY betamethasone valerate 0.1% 1 appl topical BID PRN 14 days blood sugar diagnostic As directed blood sugar diagnostic (OneTouch Ultra Test strips) 1 strip miscellaneous BID 1 month bumetanide 1 mg PO Q OTHER DAY carboxymethylcellulose sodium 0.5% (Refresh Tears) 1 drp ophthalmic (eye) BID carboxymethylcellulose sodium 1% (Artificial Tears (carboxymethylcellulose)) 1 drp ophthalmic (eye) QID diclofenac sodium 1% (Voltaren Arthritis Pain) 4 grams topical QID PRN 30 days docusate sodium 100 mg PO DAILY PRN dutasteride 0.5 mg PO DAILY 90 days glipizide ER 2.5 mg PO DAILY lancets As directed lancets (OneTouch UltraSoft Lancets) As directed to test blood sugar twice a day. Ninety day supply levothyroxine 125 mcg PO DAILY 30 days lisinopril 10 mg PO DAILY meclizine 25 mg PO BID PRN pravastatin 40 mg PO DAILY tadalafil 10 mg PO DAILY 90 days tadalafil 20 mg PO ONCE PRN 30 days warfarin 4 mg See Protocol PO DAILY Nursing Note INR: 2.8 in therapeutic range Medications and supplements reviewed No changes in health, diet, medications, STARTED SOME FRUIT SUPPLEMENT FEW WEEKS AGO, IN RESEARCHING THE PRODUCT -COULD HAVE SEERAL INGREDIENTS THAT COULD RAISE THE INR, ENC JUST 1 TAB DAILY Denies any signs and symptoms of bleeding or bruising or clotting. Bleeding, bruising, clotting discussed Nutritional guidance given Dose: KEEP SAME FOR NOW 2MG X 2 DAYS 4MG X 5 DAYS F/U INR: 3 WEEKS Patient verbalizes understanding of instructions given Anti-Coag Initial Assessment Social Hx Patient Tobacco Use Status: Former Tobacco user Quit Date: 1979 alcohol intake: former Alcohol intake frequency: does not drink Coding Level of Care Code Est Patient Level 1 Diagnoses Current use of anticoagulant therapy Z79.01 Assessment & Plan Assessment & Plan (1) Current use of anticoagulant therapy: Code(s): Z79.01 - retirement (current) use of 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
== END 2022-12-21 08:44 | disposition home or self-care (01) ==
LOC: HO.ACS 08:16
PROVIDERS: PCP Family Medicine; Visit Provider Internal Medicine
DX: Z79.01 Long term (current) use of anticoagulants (principal)

== ENCOUNTER → 2022-12-21 08:16 | Outpatient (BNVA) | payer MEDICARE, SELFPAY | PROVIDERS: PCP Family Medicine; Visit Provider Internal Medicine | DX: I48.0 Paroxysmal atrial fibrillation (principal); Z79.01 Long term (current) use of anticoagulants; Z51.81 Encounter for therapeutic drug level monitoring | CPT/HCPCS: 85610; 99211 ==

== ENCOUNTER 2022-12-28 07:24 | Outpatient (REF) | payer MEDICARE, SELFPAY ==
[2022-12-28 10:14] LABS: Free T4 (Free Thyroxine) 1.24 ng/dL (0.71-1.85); Prostate Specific Antigen 1.15 ng/mL (<0.05-4.0); Thyroid Stimulating Hormone 0.28 uIU/mL (0.32-4.0)
[2022-12-29 10:38] LABS: Triiodothyronine T3 Total 86 ng/dL (76-181)
== END 2022-12-28 07:25 | disposition home or self-care (01) ==
LOC: HO.LAB 07:24
PROVIDERS: Absent Provider Urology; PCP Family Medicine; Visit Provider Internal Medicine
DX: Z12.5 Encounter for screening for malignant neoplasm of prostate (principal); E03.9 Hypothyroidism, unspecified; Z87.898 Personal history of other specified conditions
CPT/HCPCS: 36415; 84153; 84439; 84443; 84480

== ENCOUNTER 2023-01-12 08:04 | Outpatient (AMB) | payer MEDICARE, SELFPAY ==
[2023-01-12 08:22] LABS: Prothrombin Time Whole Bld POC 26.9 sec (11.1-13.5); ~PT, ~INR - Anti Coag Clinic 2.2 (0.9-1.1)
--- NOTE | 2023-01-12 08:23 | MHC.OFFVISCO ---
Intake Intake Visit Reasons: Anticoagulation Allergies hydralazine [Hydralazine] Allergy (Unknown, Verified 01/12/23 08:15) SEVERE HEADACHE Medication List - Last Reconciled 01/12/23 by Elisa Jon RN amlodipine 5 mg PO DAILY 90 days betamethasone valerate 0.1% 1 appl topical BID PRN 14 days blood sugar diagnostic As directed blood sugar diagnostic (OneTouch Ultra Test strips) 1 strip miscellaneous BID 1 month bumetanide 1 mg PO Q OTHER DAY carboxymethylcellulose sodium 0.5% (Refresh Tears) 1 drp ophthalmic (eye) BID carboxymethylcellulose sodium 1% (Artificial Tears (carboxymethylcellulose)) 1 drp ophthalmic (eye) QID diclofenac sodium 1% (Voltaren Arthritis Pain) 4 grams topical QID PRN 30 days docusate sodium 100 mg PO DAILY PRN dutasteride 0.5 mg PO DAILY 90 days glipizide ER 2.5 mg PO DAILY lancets As directed lancets (OneTouch UltraSoft Lancets) As directed to test blood sugar twice a day. Ninety day supply levothyroxine 125 mcg PO DAILY 30 days lisinopril 10 mg PO DAILY 90 days meclizine 25 mg PO BID PRN pravastatin 40 mg PO DAILY tadalafil 10 mg PO DAILY 90 days tadalafil 20 mg PO ONCE PRN 30 days warfarin 4 mg See Protocol PO DAILY Nursing Note INR: 2.2 in therapeutic range Medications and supplements reviewed No changes in health, diet, medications, or supplements, Denies any signs and symptoms of bleeding or bruising or clotting. Bleeding, bruising, clotting discussed Nutritional guidance given Dose:2MG X 2 DAYS/ 4MG X 5 DAYS F/U INR: 1 MONTH Patient verbalizes understanding of instructions given Anti-Coag Initial Assessment Social Hx Patient Tobacco Use Status: Former Tobacco user Quit Date: 1979 alcohol intake: former Alcohol intake frequency: does not drink Coding Level of Care Code Est Patient Level 1 Diagnoses Current use of anticoagulant therapy Z79.01 Assessment & Plan Assessment & Plan (1) Current use of anticoagulant therapy: Code(s): Z79.01 - assisted (current) use of 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
== END 2023-01-12 08:26 | disposition home or self-care (01) ==
LOC: HO.ACS 08:04
PROVIDERS: PCP Family Medicine; Visit Provider Internal Medicine
DX: Z79.01 Long term (current) use of anticoagulants (principal)

== ENCOUNTER → 2023-01-12 08:04 | Outpatient (BNVA) | payer MEDICARE, SELFPAY | PROVIDERS: PCP Family Medicine; Visit Provider Internal Medicine | DX: I48.0 Paroxysmal atrial fibrillation (principal); Z79.01 Long term (current) use of anticoagulants; Z51.81 Encounter for therapeutic drug level monitoring | CPT/HCPCS: 85610; 99211 ==

== ENCOUNTER 2023-01-23 08:44 | Outpatient (AMB) | payer MEDICARE, SELFPAY ==
--- NOTE | 2023-01-23 08:47 | MHC.PC.OV ---
Vital Signs 01/23/23 09:13 Height 5 ft 6 in Weight 174 lb BMI 28.1 BP 138/62 Blood Pressure Location Lt brachial Position Sitting Respiration 15 Pulse 76 Pulse Source Pulse Oximeter Temp 98.8 F Temp Source Temporal Artery Scan Pulse Oximetry (%) 98 Oxygen Delivery Method Room Air Intake Visit Reasons: f/u hypertension and cough Intake Note: Patient reports he has dizziness and after an ER exam, he was diagnosed with vertigo. Patient is wondering if the neck problem could be a contributing factor to the cause of the vertigo. 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 Last A1c 10/19/22 6.4. He is on glipizide 2.5mg daily. A1c today 01/23/23 is Thyroid levels checked 12/28/22. Mildly low TSH at 0.28. He is on levothyroxine 125 mcg daily. Creatinine level had been elevated in November. Blood pressure today 138/62. Pt reports recent vertigo. Pt reports an ongoing cough. [facility] Medical History Aortic stenosis Atrial fibrillation CAD (coronary artery disease) Jayy's disease Diabetes type 2, controlled Edema Elevated diaphragm Elevated morning serum cortisol level Elevated prostate specific antigen between 10 and 19 ng/ml Pulmonary nodules RUQ pain Wheezing Surgical History History of cardiac cath Hx of colonoscopy Hx of tonsillectomy Family History Father Colon cancer Mother HTN (hypertension) Type 2 diabetes mellitus Brother No problems noted. Sister No problems noted. Son No problems noted. Son No problems noted. Son No problems noted. Daughter No problems noted. Daughter No problems noted. Social History Housing: Apartment Alcohol intake: former Year quit: 1979 Patient Tobacco Use Status: Former Tobacco user Quit Date: 1979 Years Smoked: 45+ e-Cigarette/Vaping Use: Never Used Second Hand Smoke Exposure: No service: Yes ([employer] [id number]) Current occupational status: retired Current occupational exposures/hazards: No Cognitive needs: No Hearing needs: Yes Vision needs: No Questionnaire Thrive Questionnaire Date Thrive assessed: 04/12/22 KOBE-7 AMB Questionnaire KOBE-7 Date KOBE - 7 assessed: 08/25/21 Source: Developed by Drs. Boston Abdi, Ermelinda Hutton, Nagi Berkowitz and colleagues, with an educational noni from [email or web address]. Review of Systems Resp Reports cough Physical exam (Primary Care) Vital Signs: Last Vital Signs Temp 98.8 F 01/23/23 09:13 Pulse 76 01/23/23 09:13 Resp 15 01/23/23 09:13 BP 138/62 01/23/23 09:13 Pulse Ox 98 01/23/23 09:13 Oxygen Delivery Method Room Air 01/23/23 09:13 BMI result Body Mass Index 28.1 Tobacco/Smoking Status: Tobacco use Status Tobacco use date assessed 07/19/22 01/23/23 08:51 Patient Tobacco Use Status Former Tobacco user 01/23/23 08:51 e-Cigarette/Vaping Use Never Used 01/23/23 08:51 Thrive Assessment: Date of Thrive Assessment Date Thrive assessed 04/12/22 01/23/23 08:51 Results AMB Hemoglobin A1c AMB Hemoglobin A1c 6.6 % Last Edit by Daphne Rowley CMA on 01/23/23 09:33 Assessment and Plan Assessment & Plan (1) Essential hypertension: Code(s): I10 - Essential (primary) hypertension Plan: Blood is a little above goal of less than 130/80. Also patient notes a chronic cough Decreasing lisinopril and increasing amlodipine. May need to discontinue lisinopril and use losartan (2) Diabetes type 2, controlled: Code(s): E11.9 - Type 2 diabetes mellitus without complications Plan: A1c was 6.3 at last visit on glipizide A1c today is 6.6% which is still good control. Goal is less than 7.0% Continue glipizide as prescribeda (3) CAD (coronary artery disease): Comment: nonobstructive Code(s): I25.10 - Atherosclerotic heart disease of [place] coronary artery without angina pectoris Plan: Stable (4) Hypothyroidism (acquired): Code(s): E03.9 - Hypothyroidism, unspecified Plan: TSH has been suppressed. This seems to be improving Recheck thyroid hormone levels and if still suppressed may decreased levothyroxine further (5) Cough: Code(s): R05.9 - Cough, unspecified Plan: Chronic cough. Decreasing lisinopril. May need to discontinue lisinopril and use losartan if cough persists (6) Renal failure: Code(s): N19 - Unspecified kidney failure Plan: As above, decreasing lisinopril Rechecking renal function labs (7) Vertigo: Code(s): R42 - Dizziness and giddiness Plan: Referred to physical therapy Orders: Orders Comprehensive Met. Panel Today N19 - Unspecified kidney failure PT Evaluation and Treatment Today R42 - Dizziness and giddiness Triiodothyronine T3 Total Today E03.9 - Hypothyroidism, unspecified Free T4 (Free Thyroxine) Today E03.9 - Hypothyroidism, unspecified AMB Hemoglobin A1c Today Z13.9 - Encounter for screening, unspecified Thyroid Stimulating Hormone Today E03.9 - Hypothyroidism, unspecified Medications: Changed From lisinopril 10 mg PO DAILY 90 days 90 tabs 2RF To lisinopril 5 mg PO DAILY 90 days 90 tabs 2RF From amlodipine 5 mg PO DAILY 90 days 90 tabs 2RF To amlodipine 10 mg PO DAILY 90 days 90 tabs 2RF Coding Level of Care Code Est Pt Level 4 (18883) Diagnoses Essential hypertension I10 Diabetes type 2, controlled E11.9 CAD (coronary artery disease) I25.10 Hypothyroidism (acquired) E03.9 Cough R05.9 Renal failure N19 Vertigo R42
[2023-01-23 09:13] VITALS: BP 138/62; PULSE 76; RESP 15; TEMP 37.1; O2SAT 98; BMI 28.1
== END 2023-01-23 09:37 | disposition home or self-care (01) ==
PROVIDERS: PCP Family Medicine; Visit Provider Family Medicine
DX: I10 Essential (primary) hypertension (principal); E11.9 Type 2 diabetes mellitus without complications; E03.9 Hypothyroidism, unspecified; N19 Unspecified kidney failure; I25.10 Atherosclerotic heart disease of native coronary artery without angina pectoris; R05.9 Cough, unspecified; R42 Dizziness and giddiness
CPT/HCPCS: 83036; 99214

== ENCOUNTER 2023-01-23 09:56 | Outpatient (REF) | payer MEDICARE, SELFPAY ==
[2023-01-23 13:02] LABS: Alanine Aminotransferase 17 U/L (0-40); Albumin Level 4.1 g/dL (3.5-5.0); Alkaline Phosphatase 101 U/L (39-117); Anion Gap 8 (12-20); Aspartate Amino Transferase 20 U/L (5-37); Bilirubin Total 0.7 mg/dL (0.0-1.0); Blood Urea Nitrogen 31 mg/dL (9-16); Calcium 9.8 mg/dL (8.4-10.2); Carbon Dioxide 26 mmol/L (22-29); Chloride 111 mmol/L (96-108); Estimated Glomerular Filt Rate 51; Glucose Random 114 mg/dL (60-115); Potassium 4.4 mmol/L (3.3-5.1); Sodium 141 mmol/L (135-145); Total Protein 6.9 g/dL (6.5-8.0)
[2023-01-23 13:11] LABS: Free T4 (Free Thyroxine) 1.18 ng/dL (0.71-1.85); Thyroid Stimulating Hormone 0.29 uIU/mL (0.32-4.0)
[2023-01-24 09:39] LABS: Triiodothyronine T3 Total 90 ng/dL (76-181)
== END 2023-01-23 09:57 | disposition home or self-care (01) ==
LOC: HO.WFDLDS 09:56
PROVIDERS: Visit Provider Family Medicine
DX: E03.9 Hypothyroidism, unspecified (principal); N19 Unspecified kidney failure
CPT/HCPCS: 36415; 80053; 84439; 84443; 84480

== ENCOUNTER 2023-01-31 09:35 | Outpatient (REF) | payer MEDICARE, SELFPAY ==
[2023-01-31 10:32] LABS: Appearance Urine Clear; Color Urine Yellow; Glucose Urine UA Negative (Negative); Leukocyte Esterase Urine Negative (Negative); Nitrite Urine Negative (Negative); Specific Gravity - Urine <= 1.005 (1.005-1.025); Urine Blood Negative (Negative); Urine Ketones Negative (Negative); Urine Protein Negative (Neg-Trace)
== END 2023-01-31 09:36 | disposition home or self-care (01) ==
LOC: HO.LAB 09:35
PROVIDERS: PCP Family Medicine; Visit Provider Family Medicine
DX: Z00.00 Encounter for general adult medical examination without abnormal findings (principal)
CPT/HCPCS: 81003

== ENCOUNTER 2023-02-09 07:57 | Outpatient (AMB) | payer MEDICARE, SELFPAY ==
--- NOTE | 2023-02-09 08:29 | MHC.OFFVISCO ---
Intake Intake Visit Reasons: Anticoagulation Allergies hydralazine [Hydralazine] Allergy (Unknown, Verified 02/09/23 08:22) SEVERE HEADACHE Medication List - Last Reconciled 02/09/23 by Elisa Jon RN amlodipine 10 mg PO DAILY 90 days betamethasone valerate 0.1% 1 appl topical BID PRN 14 days blood sugar diagnostic As directed blood sugar diagnostic (OneTouch Ultra Test strips) 1 strip miscellaneous BID 1 month bumetanide 1 mg PO Q OTHER DAY carboxymethylcellulose sodium 0.5% (Refresh Tears) 1 drp ophthalmic (eye) BID carboxymethylcellulose sodium 1% (Artificial Tears (carboxymethylcellulose)) 1 drp ophthalmic (eye) QID diclofenac sodium 1% (Voltaren Arthritis Pain) 4 grams topical QID PRN 30 days docusate sodium 100 mg PO DAILY PRN dutasteride 0.5 mg PO DAILY 90 days glipizide ER 2.5 mg PO DAILY lancets As directed lancets (OneTouch UltraSoft Lancets) As directed to test blood sugar twice a day. Ninety day supply levothyroxine 125 mcg PO DAILY 30 days lisinopril 5 mg PO DAILY 90 days meclizine 25 mg PO BID PRN pravastatin 40 mg PO DAILY tadalafil 10 mg PO DAILY 90 days tadalafil 20 mg PO ONCE PRN 30 days warfarin 4 mg See Protocol PO DAILY Nursing Note INR: 1.9 ALMOST in therapeutic range Medications and supplements reviewed No changes in health, diet, medications, or supplements, Denies any signs and symptoms of bleeding or bruising or clotting. Bleeding, bruising, clotting discussed Nutritional guidance given- AVOID GREENS X 3 DAYS, EAT ORANGE AND REDS TO HELP RAISE THE INR TODAY Dose: KEEP SAME 2MG X 2 DAYS/ 4MG X 5 DAYS F/U INR: 4 WEEKS Patient verbalizes understanding of instructions given Anti-Coag Initial Assessment Social Hx Patient Tobacco Use Status: Former Tobacco user Quit Date: 1979 alcohol intake: former Alcohol intake frequency: does not drink Coding Level of Care Code Est Patient Level 1 Diagnoses Current use of anticoagulant therapy Z79.01 Assessment & Plan Assessment & Plan (1) Current use of anticoagulant therapy: Code(s): 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
== END 2023-02-09 08:33 | disposition home or self-care (01) ==
LOC: HO.ACS 07:57
PROVIDERS: PCP Family Medicine; Visit Provider Internal Medicine
DX: Z79.01 Long term (current) use of anticoagulants (principal)

== ENCOUNTER → 2023-02-09 07:57 | Outpatient (BNVA) | payer MEDICARE, SELFPAY | PROVIDERS: PCP Family Medicine; Visit Provider Internal Medicine | DX: I48.0 Paroxysmal atrial fibrillation (principal); Z79.01 Long term (current) use of anticoagulants; Z51.81 Encounter for therapeutic drug level monitoring | CPT/HCPCS: 85610; 99211 ==

== ENCOUNTER 2023-03-06 14:56 | Outpatient (AMB) | payer MEDICARE, SELFPAY ==
--- NOTE | 2023-03-06 15:02 | MHC.OFFVIS ---
Intake Intake Visit Reasons: 6m follow up/PSA(SET) Intake Note: Patient is Present for Follow Up Urology Medication: Dutasteride, Tadalafil Antibiotic Allergies: None Blood Thinners: Warfarin Allergies hydralazine [Hydralazine] Allergy (Unknown, Verified 03/06/23 15:09) SEVERE HEADACHE Medication List - Last Reconciled 03/06/23 by Dennsi Francis MD amlodipine 10 mg PO DAILY 90 days betamethasone valerate 0.1% 1 appl topical BID PRN 14 days blood sugar diagnostic As directed blood sugar diagnostic (OneTouch Ultra Test strips) 1 strip miscellaneous BID 1 month bumetanide 1 mg PO Q OTHER DAY carboxymethylcellulose sodium 0.5% (Refresh Tears) 1 drp ophthalmic (eye) BID carboxymethylcellulose sodium 1% (Artificial Tears (carboxymethylcellulose)) 1 drp ophthalmic (eye) QID diclofenac sodium 1% (Voltaren Arthritis Pain) 4 grams topical QID PRN 30 days docusate sodium 100 mg PO DAILY PRN dutasteride 0.5 mg PO DAILY 90 days glipizide ER 2.5 mg PO DAILY lancets As directed lancets (OneTouch UltraSoft Lancets) As directed to test blood sugar twice a day. Ninety day supply levothyroxine 125 mcg PO DAILY lisinopril 5 mg PO DAILY 90 days meclizine 25 mg PO BID PRN pravastatin 40 mg PO DAILY tadalafil 10 mg PO DAILY 90 days tadalafil 5 mg PO DAILY 90 days tadalafil 20 mg PO ONCE PRN 30 days warfarin 4 mg See Protocol PO DAILY HPI HPI Comments History of Present Illness Details Boston Rivers is a very pleasant male. He is a patient of Dr Muniz and Dr Vuong at the [facility]. He is seen for the following urologic conditions. - BPH elevated PSA - erectile dysfunction - primary testicular failure and hypergonadtoropic hypogonadism Persistent elevation FSH and LH. 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 Has lab work that is upper limit of normal for a number of these evaluations - subclinical [place]'s disease Moderate response to daily Cialis 5 mg Continue with 20 mg on demand 3 month follow-up for tadalafil Elevated PSA/Abnormal NEO: Current management is medication with 5AR. Laboratory investigations include 10/22 , a total PSA evaluation 4.99 03/24 , a total PSA evaluation - reports as 3.5 09/22 3.0 09/23 1.4, 03/27 3.4, 09/25 FSH 56 T 273, 04/27 FSH 52, LH 22, T 177, PSA 1.3, 10/27 FSH 53 LH 42 E 32, 12/27 P 1.2 Individualized Prostate Cancer Risk Calculator 5-10% high risk, Would like to continue with observation and understands and accepts the risks of a possible delay in diagnosis. Symptoms include 09/22 , nocturia, x 1, and are improving. Overall symptoms are mild. Erectile dysfunction Combination of daily and on demand PFSH Medical History Aortic stenosis Atrial fibrillation CAD (coronary artery disease) Jayy's disease Diabetes type 2, controlled Edema Elevated diaphragm Elevated morning serum cortisol level Elevated prostate specific antigen between 10 and 19 ng/ml Pulmonary nodules RUQ pain Wheezing Surgical History History of cardiac cath Hx of colonoscopy Hx of tonsillectomy Family History Father Colon cancer Mother HTN (hypertension) Type 2 diabetes mellitus Brother No problems noted. Sister No problems noted. Son No problems noted. Son No problems noted. Son No problems noted. Daughter No problems noted. Daughter No problems noted. Social History Housing: Apartment Alcohol intake: former Year quit: 1979 Patient Tobacco Use Status: Former Tobacco user Quit Date: 1979 Years Smoked: 45+ e-Cigarette/Vaping Use: Never Used Second Hand Smoke Exposure: No service: Yes ([employer] [id number]) Current occupational status: retired Current occupational exposures/hazards: No Cognitive needs: No Hearing needs: Yes Vision needs: No Review of Systems Const Denies chills and Denies fever(s) Card Reports no additional complaints and Denies syncope Resp Denies cough GI Denies abdominal pain and Denies heartburn Reports as per HPI and Denies change in libido Neuro Denies syncope Psych Denies change in libido Endo Denies change in libido Physical Exam Const General: cooperative, healthy appearing, comfortable and no acute distress Orientation/consciousness: patient oriented x3 HEENT Face and sinus: Yes normal facial exam Mouth: moist mucous membranes Neck Neck: Yes normal visual inspection, Yes full ROM and Yes trachea midline Chest Chest palpation & inspection: normal inspection of the chest Resp Effort & Inspection: normal respiratory effort, able to speak in complete sentences and no respiratory distress GI Inspection: Yes normal to inspection Back/Spine/Pelvis Cervical Spine: normal cervical lordosis Thoracic/Lumbar Spine: thoracic and lumbar spine normal to inspection Skin General skin exam: no rashes or lesions noted Neuro General: patient oriented x3, gait normal, tone normal and moves all extremities Extrem General: Yes normal to inspection and Yes capillary refill normal Assessment & Plan Assessment & Plan (1) Erectile dysfunction associated with type 2 diabetes mellitus: Code(s): E11.69 - Type 2 diabetes mellitus with other specified complication; N52.1 - Erectile dysfunction due to diseases classified elsewhere Plan Three month follow-up tele Medications: New tadalafil [id number] [facility] [id number] Member [id number] 5 mg PO DAILY 90 tabs 0RF sexual activity 90 days E11.69 - Type 2 diabetes mellitus with other specified complication, N52.1 - Erectile dysfunction due to diseases classified elsewhere Patient Instructions: Imaging studies, laboratory and physical exam results were discussed and reviewed in detail. No major barriers to patient understanding were identified. An opportunity to ask questions regarding the treatment plan was provided. All questions were answered. The patient expressed understanding and agreement with the above treatment plan. The patient is aware they should contact our office by phone for worsening of their current condition or the appearance of new urologic symptoms. Compliance is encouraged with any medications and followup testing that is ordered. It is a privilege to participate in the urologic care of your patient. If you have any questions or concerns regarding treatment for the above conditions, or other urologic issues, please do not hesitate to contact me. The office telephone contact is [phone]. This note is constructed using voice recognition software. While every effort has been made to ensure accuracy cook house supervisor errors may have been included. Yours sincerely, Dr Dennis Francis MD, [facility] - Urology Providers of Expert, Compassionate Care for the Genitourinary System Coding Level of Care Code Est Pt Level 3 (56927) Diagnoses Erectile dysfunction associated with type 2 diabetes mellitus E11.69; N52.1
== END 2023-03-06 15:33 | disposition home or self-care (01) ==
PROVIDERS: PCP Family Medicine; Visit Provider Urology
DX: E11.69 Type 2 diabetes mellitus with other specified complication (principal); N52.1 Erectile dysfunction due to diseases classified elsewhere
CPT/HCPCS: 99213

== ENCOUNTER → 2023-03-06 14:56 | Outpatient (BNVA) | payer MEDICARE, SELFPAY | PROVIDERS: PCP Family Medicine; Visit Provider Urology | DX: E11.69 Type 2 diabetes mellitus with other specified complication (principal); N52.1 Erectile dysfunction due to diseases classified elsewhere | CPT/HCPCS: 99212 ==

== ENCOUNTER 2023-03-08 08:08 | Outpatient (AMB) | payer MEDICARE, SELFPAY ==
[2023-03-08 08:24] LABS: Prothrombin Time Whole Bld POC 21.1 sec (11.1-13.5); ~PT, ~INR - Anti Coag Clinic 1.8 (0.9-1.1)
--- NOTE | 2023-03-08 08:30 | MHC.OFFVISCO ---
Intake Intake Visit Reasons: Anticoagulation Allergies hydralazine [Hydralazine] Allergy (Unknown, Verified 03/08/23 08:19) SEVERE HEADACHE Medication List - Last Reconciled 03/08/23 by Elisa Cadena RN amlodipine 10 mg PO DAILY 90 days betamethasone valerate 0.1% 1 appl topical BID PRN 14 days blood sugar diagnostic As directed blood sugar diagnostic (OneTouch Ultra Test strips) 1 strip miscellaneous BID 1 month bumetanide 1 mg PO Q OTHER DAY carboxymethylcellulose sodium 0.5% (Refresh Tears) 1 drp ophthalmic (eye) BID carboxymethylcellulose sodium 1% (Artificial Tears (carboxymethylcellulose)) 1 drp ophthalmic (eye) QID diclofenac sodium 1% (Voltaren Arthritis Pain) 4 grams topical QID PRN 30 days docusate sodium 100 mg PO DAILY PRN dutasteride 0.5 mg PO DAILY 90 days glipizide ER 2.5 mg PO DAILY lancets As directed lancets ([employer]Touch UltraSoft Lancets) As directed to test blood sugar twice a day. Ninety day supply levothyroxine 125 mcg PO DAILY lisinopril 5 mg PO DAILY 90 days meclizine 25 mg PO BID PRN pravastatin 40 mg PO DAILY tadalafil 10 mg PO DAILY 90 days tadalafil 5 mg PO DAILY 90 days tadalafil 20 mg PO ONCE PRN 30 days warfarin 4 mg See Protocol PO DAILY Nursing Note Amb to ACS feeling ok Medications and supplements reviewed No changes in health, diet, medications, or supplements Denies any unusual signs and symptoms of bruising, bleeding Denies any new Chest pain, SOB, or clotting INR: 1.8 below therapeutic range (last 2 visits) Nutritional guidance given:no greens today then balance greens and reds in diet Dose: increase dosing today to 6mg the increase weekly to 4mg x 6 days and 2mg x 1 days; F/U INR: 2 weeks Patient verbalizes understanding of instructions given with accurate read back/ teach back of dosing Anti-Coag Initial Assessment Social Hx Patient Tobacco Use Status: Former Tobacco user Quit Date: 1979 alcohol intake: former Alcohol intake frequency: does not drink Coding Level of Care Code Est Patient Level 1 Diagnoses Current use of anticoagulant therapy Z79.01 Time Spent (min) 15 Assessment & Plan Assessment & Plan (1) Current use of anticoagulant therapy: Code(s): Z79.01 - [facility] (current) use of 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
== END 2023-03-08 08:51 | disposition home or self-care (01) ==
LOC: HO.ACS 08:08
PROVIDERS: PCP Family Medicine; Visit Provider Internal Medicine
DX: Z79.01 Long term (current) use of anticoagulants (principal)

== ENCOUNTER → 2023-03-08 08:08 | Outpatient (BNVA) | payer MEDICARE, SELFPAY | PROVIDERS: PCP Family Medicine; Visit Provider Internal Medicine | DX: I48.0 Paroxysmal atrial fibrillation (principal); Z79.01 Long term (current) use of anticoagulants; Z51.81 Encounter for therapeutic drug level monitoring | CPT/HCPCS: 85610; 99211 ==

== ENCOUNTER → 2023-03-22 08:17 | Outpatient (BNVA) | payer MEDICARE, SELFPAY | PROVIDERS: PCP Family Medicine; Visit Provider Internal Medicine | DX: I48.0 Paroxysmal atrial fibrillation (principal); Z79.01 Long term (current) use of anticoagulants; Z51.81 Encounter for therapeutic drug level monitoring | CPT/HCPCS: 85610 ==

== ENCOUNTER 2023-04-02 12:53 | Outpatient (AMB) | payer MEDICARE, SELFPAY ==
[2023-04-02 13:08] VITALS: BP 122/60; PULSE 73; O2SAT 98; BMI 28.8
--- NOTE | 2023-04-02 13:08 | A.OFFVIS_ITS ---
Intake Vital Signs 04/02/23 13:08 Height 5 ft 6 in Weight 178 lb 9.191 oz BMI 28.8 BP 122/60 Blood Pressure Location Lt brachial Position Sitting Pulse 73 Pulse Source Pulse Oximeter Pulse Oximetry (%) 98 Oxygen Delivery Method Room Air Intake Visit Reasons: 7 mth f/u per DC Intake Note: Pt presents to the office today for a 7 month follow up. Pt states he is feeling okay and denies any chest pain or palpitations. Allergies hydralazine [Hydralazine] Allergy (Unknown, Verified 04/02/23 13:12) SEVERE HEADACHE Medication List - Last Reconciled 04/02/23 by Leon Gilbert MD amlodipine 10 mg PO DAILY 90 days betamethasone valerate 0.1% 1 appl topical BID PRN 14 days blood sugar diagnostic As directed blood sugar diagnostic (OneTouch Ultra Test strips) 1 strip miscellaneous BID 1 month bumetanide 1 mg PO Q OTHER DAY carboxymethylcellulose sodium 0.5% (Refresh Tears) 1 drp ophthalmic (eye) BID carboxymethylcellulose sodium 1% (Artificial Tears (carboxymethylcellulose)) 1 drp ophthalmic (eye) QID diclofenac sodium 1% (Voltaren Arthritis Pain) 4 grams topical QID PRN 30 days dutasteride 0.5 mg PO DAILY 90 days glipizide ER 2.5 mg PO DAILY 90 days lancets As directed lancets (OneTouch UltraSoft Lancets) As directed to test blood sugar twice a day. Ninety day supply levothyroxine 125 mcg PO DAILY lisinopril 5 mg PO DAILY 90 days meclizine 25 mg PO BID PRN pravastatin 40 mg PO DAILY tadalafil 5 mg PO DAILY 90 days tadalafil 20 mg PO ONCE PRN 30 days warfarin 4 mg See Protocol PO DAILY HPI HPI Comments History of Present Illness Details Pleasant 87 gentleman for follow-up. He was previously seen for atrial fibrillation and exertion chest discomfort. He underwent stress testing followed by cardiac catheterization which showed mild coronary artery disease. He is being managed for AFib with a rate control strategy. He was brought back today because he was seen by visiting nurses and was thought to be in heart failure. He was started on Bumex. After discussion with him it appears it was started because he had lower extremity edema. He is denying any shortness of breath, orthopnea PND. He said his lower extremities were swollen which previously we felt were due to amlodipine use. On follow up, he has been doing well. No CP or SOB. Clinically stable. 04/02/23: He is here for follow-up. He has been doing well. He has cramp in his left calf at times at rest. With activity or walking around he does not get any pain. Overall clinically stable. Blood pressure control is good. [facility] Medical History RUQ pain Wheezing Elevated diaphragm Pulmonary nodules Aortic stenosis Edema CAD (coronary artery disease) Diabetes type 2, controlled Elevated prostate specific antigen between 10 and 19 ng/ml Atrial fibrillation [place]'s disease Elevated morning serum cortisol level Surgical History History of cardiac cath Hx of tonsillectomy Hx of colonoscopy Family History Father Colon cancer Mother HTN (hypertension) Type 2 diabetes mellitus Brother No problems noted. Sister No problems noted. Son No problems noted. Son No problems noted. Son No problems noted. Daughter No problems noted. Daughter No problems noted. Housing: Apartment Alcohol intake: former Year quit: 1979 Patient Tobacco Use Status: Former Tobacco user Quit Date: 1979 Years Smoked: 45+ e-Cigarette/Vaping Use: Never Used Second Hand Smoke Exposure: No service: Yes ([email or web address] [id number]) Current occupational status: retired Current occupational exposures/hazards: No Cognitive needs: No Hearing needs: Yes Vision needs: No Physical Exam Vital Signs: Last Vital Signs Pulse 73 04/02/23 13:08 BP 122/60 04/02/23 13:08 Pulse Ox 98 04/02/23 13:08 Oxygen Delivery Method Room Air 04/02/23 13:08 BMI result Body Mass Index 28.8 GENERAL APPEARANCE: in no acute distress, pleasant. NECK: no carotid bruit, no jugular venous distention. SKIN: no suspicious lesions, warm and dry. HEART: no murmurs, irregular rate and rhythm. LUNGS: clear to auscultation bilaterally. ABDOMEN: soft, nontender. EXTREMITIES: No edema. PERIPHERAL PULSES: equal. NEUROLOGIC: No gross deficits, AAO X 3 Assessment & Plan Assessment & Plan (1) Essential hypertension: Code(s): I10 - Essential (primary) hypertension (2) Atrial fibrillation: Code(s): I48.91 - Unspecified atrial fibrillation (3) Edema: Code(s): R60.9 - Edema, unspecified Plan Pleasant 87 gentleman with history of permanent atrial fibrillation, hypertension and peripheral edema. Heart rate is well controlled. Blood pressure control is good. He has peripheral edema due to amlodipine. He is taking Bumex every other day. Overall clinically stable. I think peripheral edema is not due to heart failure and is due to amlodipine. He will see us back in 6 months. Thank you for allowing me to participate in the care of your patient. Please feel free to contact me if you have any questions. Coding Level of Care Code Est Pt Level 3 (75369) Diagnoses Essential hypertension I10 Atrial fibrillation I48.91 Edema R60.9
== END 2023-04-02 13:41 | disposition home or self-care (01) ==
PROVIDERS: PCP Family Medicine; Visit Provider Internal Medicine Cardiovascular Disease
DX: I10 Essential (primary) hypertension (principal); I48.91 Unspecified atrial fibrillation; R60.9 Edema, unspecified
CPT/HCPCS: 99213

== ENCOUNTER → 2023-04-02 12:53 | Outpatient (BNVA) | payer MEDICARE, SELFPAY | PROVIDERS: Visit Provider Internal Medicine Cardiovascular Disease | DX: I48.91 Unspecified atrial fibrillation (principal); I25.10 Atherosclerotic heart disease of native coronary artery without angina pectoris; I10 Essential (primary) hypertension; R60.9 Edema, unspecified; Z98.890 Other specified postprocedural states; Z91.85 Personal history of military service | CPT/HCPCS: 99212 ==

== ENCOUNTER 2023-04-06 08:01 | Outpatient (AMB) | payer MEDICARE, SELFPAY ==
[2023-04-06 08:11] LABS: Prothrombin Time Whole Bld POC 25.8 sec (11.1-13.5); ~PT, ~INR - Anti Coag Clinic 2.2 (0.9-1.1)
--- NOTE | 2023-04-06 08:16 | MHC.OFFVISCO ---
Intake Intake Visit Reasons: Anticoagulation Allergies hydralazine [Hydralazine] Allergy (Unknown, Verified 04/06/23 08:10) SEVERE HEADACHE Medication List - Last Reconciled 04/06/23 by Delia Claros RN amlodipine 10 mg PO DAILY 90 days betamethasone valerate 0.1% 1 appl topical BID PRN 14 days blood sugar diagnostic As directed blood sugar diagnostic (OneTouch Ultra Test strips) 1 strip miscellaneous BID 1 month bumetanide 1 mg PO Q OTHER DAY carboxymethylcellulose sodium 0.5% (Refresh Tears) 1 drp ophthalmic (eye) BID carboxymethylcellulose sodium 1% (Artificial Tears (carboxymethylcellulose)) 1 drp ophthalmic (eye) QID diclofenac sodium 1% (Voltaren Arthritis Pain) 4 grams topical QID PRN 30 days dutasteride 0.5 mg PO DAILY 90 days glipizide ER 2.5 mg PO DAILY 90 days lancets As directed lancets (OneTouch UltraSoft Lancets) As directed to test blood sugar twice a day. Ninety day supply levothyroxine 125 mcg PO DAILY lisinopril 5 mg PO DAILY 90 days meclizine 25 mg PO BID PRN pravastatin 40 mg PO DAILY tadalafil 5 mg PO DAILY 90 days tadalafil 20 mg PO ONCE PRN 30 days warfarin 4 mg See Protocol PO DAILY Nursing Note NO CP,SOB,DIET/MED CHANGES,FALLS OR SX OF BLEEDING. CONTINUE 4MGM DAILY AND FOLLOW-UP IN 3 WEEKS. GOOD UNBDERSTANDING OF DOSING INSTR. Anti-Coag Initial Assessment Social Hx Patient Tobacco Use Status: Former Tobacco user Quit Date: 1979 alcohol intake: former Alcohol intake frequency: does not drink Coding Level of Care Code Est Patient Level 1 Diagnoses Current use of anticoagulant therapy Z79.01 Assessment & Plan Assessment & Plan (1) Current use of anticoagulant therapy: Code(s): Z79.01 - intermediate (current) use of 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
== END 2023-04-06 08:18 | disposition home or self-care (01) ==
LOC: HO.ACS 08:01
PROVIDERS: PCP Family Medicine; Visit Provider Internal Medicine
DX: Z79.01 Long term (current) use of anticoagulants (principal)

== ENCOUNTER → 2023-04-06 08:01 | Outpatient (BNVA) | payer MEDICARE, SELFPAY | PROVIDERS: PCP Family Medicine; Visit Provider Internal Medicine | DX: I48.0 Paroxysmal atrial fibrillation (principal); Z79.01 Long term (current) use of anticoagulants; Z51.81 Encounter for therapeutic drug level monitoring | CPT/HCPCS: 85610; 99211 ==

== ENCOUNTER 2023-04-17 09:02 | Outpatient (AMB) | payer MEDICARE, SELFPAY ==
[2023-04-17 09:07] VITALS: BP 128/58; PULSE 77; RESP 14; O2SAT 98; BMI 28.1
--- NOTE | 2023-04-17 09:07 | MHC.PC.OV ---
Vital Signs 04/17/23 09:07 Height 5 ft 6 in Weight 174 lb 6 oz BMI 28.1 BP 128/58 L Blood Pressure Location Rt brachial Position Sitting Respiration 14 Pulse 77 Pulse Source Pulse Oximeter Pulse Oximetry (%) 98 Oxygen Delivery Method Room Air Intake Visit Reasons: f/u hypertension, diabetes and chronic condtions Intake Note: Patient is here to follow up with hypertension, diabetes and renal failure. Patient reports he would like to discuss an order for cologuard and if the RSV vaccine is safe to get. Pants Closer Required: No Accompanied by: Self / Same As Patient Allergies hydralazine [Hydralazine] Allergy (Unknown, Verified 04/17/23 09:21) SEVERE HEADACHE Tobacco use date assessed: 07/19/22 HPI f/u hypertension, diabetes and chronic condtions HPI Details 88 y/o male presents to f/u hypertension, diabetes and chronic conditions. A1c today 04/17/23 is 6.5%. Blood pressure today 128/58. He is on lisinopril 5mg and amlodipine 10mg daily. [facility] Medical History RUQ pain Wheezing Elevated diaphragm Pulmonary nodules Aortic stenosis Edema CAD (coronary artery disease) Diabetes type 2, controlled Elevated prostate specific antigen between 10 and 19 ng/ml Atrial fibrillation [place]'s disease Elevated morning serum cortisol level Surgical History History of cardiac cath Hx of tonsillectomy Hx of colonoscopy Family History Father Colon cancer Mother HTN (hypertension) Type 2 diabetes mellitus Brother No problems noted. Sister No problems noted. Son No problems noted. Son No problems noted. Son No problems noted. Daughter No problems noted. Daughter No problems noted. Social History Housing: Apartment Alcohol intake: former Year quit: 1979 Patient Tobacco Use Status: Former Tobacco user Quit Date: 1979 Years Smoked: 45+ e-Cigarette/Vaping Use: Never Used Second Hand Smoke Exposure: No service: Yes ([employer] [id number]) Current occupational status: retired Current occupational exposures/hazards: No Cognitive needs: No Hearing needs: Yes Vision needs: No Questionnaire Thrive Questionnaire Date Thrive assessed: 04/12/22 KOBE-7 AMB Questionnaire KOBE-7 Date KOBE - 7 assessed: 08/25/21 Source: Developed by Drs. [place] Abdi, Ermelinda Hutton, Nagi Berkowitz and colleagues, with an educational noni from [employer] Review of Systems Const Denies chills, Denies fatigue, Denies fever(s), Denies headache(s) and Denies weakness ENT Denies dizziness and Denies headache(s) Card Denies dyspnea Resp Denies cough, Denies dyspnea, Denies wheezing and Denies other (shortness of breath) Musc Denies numbness and Denies tingling Neuro Denies dizziness, Denies headache(s), Denies numbness, Denies tingling and Denies weakness Psych Denies anxiety and Denies depression Endo Denies fatigue Aller/Immun Denies wheezing Physical exam (Primary Care) Vital Signs: Last Vital Signs Pulse 77 04/17/23 09:07 Resp 14 04/17/23 09:07 BP 128/58 L 04/17/23 09:07 Pulse Ox 98 04/17/23 09:07 Oxygen Delivery Method Room Air 04/17/23 09:07 BMI result Body Mass Index 28.1 Tobacco/Smoking Status: Tobacco use Status Tobacco use date assessed 07/19/22 04/17/23 09:08 Patient Tobacco Use Status Former Tobacco user 04/17/23 09:08 e-Cigarette/Vaping Use Never Used 04/17/23 09:08 Thrive Assessment: Date of Thrive Assessment Date Thrive assessed 04/12/22 04/17/23 09:08 Const General: well developed; No acute distress Nutritional Appearance: well nourished Orientation/consciousness: patient oriented x3 [facility] Head: Yes normocephalic and Yes atraumatic Eyes General: appearance normal, both eyes and all related structures Pupils: Equal, round and reactive pupils present EOM: EOMs intact bilaterally Resp Effort & Inspection: normal respiratory effort Neuro General: patient oriented x3 and gait normal Cranial nerves: Yes Equal, round and reactive pupils present Psych Affect: normal affect Results AMB Hemoglobin A1c AMB Hemoglobin A1c 6.5 % Last Edit by Violeta Duke CMA on 04/17/23 09:26 Results Reviewed Results Reviewed: Laboratory Last Values Hgb A1c (Clinic) 6.5 % (4.0-6.0) H 04/17/23 09:24 Assessment and Plan Assessment & Plan (1) Diabetes type 2, controlled: Code(s): E11.9 - Type 2 diabetes mellitus without complications Plan: A1c?6.5%.??Good?control.??Goal?is?less?than?7.0% Continue?current?medication?regimen (2) Essential hypertension: Code(s): I10 - Essential (primary) hypertension Plan: Blood?pressure?is?well?controlled.??Goal?is?less?than?130/80 Continue?current?medication (3) Renal failure: Code(s): N19 - Unspecified kidney failure Plan: Renal?function?appears?improved Continue?current?medications Follow-up?with?nephrology?as?recommended (4) CAD (coronary artery disease): Comment: nonobstructive Code(s): I25.10 - Atherosclerotic heart disease of [place] coronary artery without angina pectoris Plan: Stable Follow-up?with?Cardiology?as?recommended (5) Immunization counseling: Code(s): Z71.85 - Encounter for immunization safety counseling Plan: Patient?inquired?regarding?RSV?vaccine?and?I?recommended?this. (6) Loose stools: Code(s): R19.5 - Other fecal abnormalities Plan: Continue?to?hydrate?well Trial?FiberCon?capsules (7) Screening for colon cancer: Code(s): Z12.11 - Encounter for screening for malignant neoplasm of colon Plan: Patient?requests?Cologuard?test - ordered Orders: Orders AMB Hemoglobin A1c Today Z13.9 - Encounter for screening, unspecified Referrals Cologuard Test Z12.11 - Encounter for screening for malignant neoplasm of colon, Z12.12 - Encounter for screening for malignant neoplasm of rectum Medications: New calcium polycarbophil (FiberCon) 625 mg PO DAILY 30 days 30 tabs 2RF Coding Level of Care Code Est Pt Level 4 (65731) Diagnoses Diabetes type 2, controlled E11.9 Essential hypertension I10 Renal failure N19 CAD (coronary artery disease) I25.10 Immunization counseling Z71.85 Loose stools R19.5 Screening for colon cancer Z12.11
== END 2023-04-17 09:44 | disposition home or self-care (01) ==
PROVIDERS: PCP Family Medicine; Visit Provider Family Medicine
DX: E11.9 Type 2 diabetes mellitus without complications (principal); I10 Essential (primary) hypertension; N19 Unspecified kidney failure; I25.10 Atherosclerotic heart disease of native coronary artery without angina pectoris; Z71.85 Encounter for immunization safety counseling; R19.5 Other fecal abnormalities
CPT/HCPCS: 83036; 99214

== ENCOUNTER 2023-04-18 10:27 | Outpatient (AMB) | payer MEDICARE, SELFPAY ==
--- NOTE | 2023-04-18 10:39 | HO.NEPHOV_ITS ---
HPI HPI Comments History of Present Illness Details I had the pleasure of was seeing [place] in follow-up of his chronic kidney disease and hypertension. He has diabetes over 20 years. His blood sugar control is quite good. He has prostate issues and is followed up by Dr. Farncis. He has had coronary artery disease but has no chest pain, shortness of breath, proximal nocturnal dyspnea, orthopnea or pedal edema. He denies any peripheral arterial symptoms. He has no history of CVA. He is hypertensive over 2 decades and his blood pressure is well controlled on current medication regimen. His serum creatinine has been around 1.3 now. He avoids nonsteroidal anti-inflammatory medications and maintain good hydration. He had been having some bowel issues which has been investigated by his primary care physician. There were no other new complaints at the time of this office visit. [facility] Medical History RUQ pain Wheezing Elevated diaphragm Pulmonary nodules Aortic stenosis Edema CAD (coronary artery disease) Diabetes type 2, controlled Elevated prostate specific antigen between 10 and 19 ng/ml Atrial fibrillation [place]'s disease Elevated morning serum cortisol level Surgical History History of cardiac cath Hx of tonsillectomy Hx of colonoscopy Family History Father Colon cancer Mother HTN (hypertension) Type 2 diabetes mellitus Brother No problems noted. Sister No problems noted. Son No problems noted. Son No problems noted. Son No problems noted. Daughter No problems noted. Daughter No problems noted. Social History Housing: Apartment Alcohol intake: former Year quit: 1979 Patient Tobacco Use Status: Former Tobacco user Quit Date: 1979 Years Smoked: 45+ e-Cigarette/Vaping Use: Never Used Second Hand Smoke Exposure: No service: Yes ([employer] [id number]) Current occupational status: retired Current occupational exposures/hazards: No Cognitive needs: No Hearing needs: Yes Vision needs: No Vital Signs 04/18/23 10:40 Height 5 ft 6 in Weight 175 lb 4 oz BMI 28.3 BP 120/70 Blood Pressure Location Lt brachial Position Sitting Pulse 79 Pulse Source Pulse Oximeter Pulse Oximetry (%) 99 Oxygen Delivery Method Room Air Physical Exam Vital Signs: Last Vital Signs Pulse 79 04/18/23 10:40 BP 120/70 04/18/23 10:40 Pulse Ox 99 04/18/23 10:40 Oxygen Delivery Method Room Air 04/18/23 10:40 BMI result Body Mass Index 28.3 Const General: comfortable and no acute distress Orientation/consciousness: patient oriented x3 HEENT Head: Yes normocephalic Mouth: Normal oral and palatal mucosa present Eyes EOM: EOMs intact bilaterally Neck Neck: Yes supple Resp Auscultation: clear to auscultation bilaterally Cardio Jugular venous distension: no JVD Rate: regular rate Heart sounds: Murmur heart sound present GI Palpation (GI): Soft to palpation Auscultation: normal bowel sounds General: Yes no CVA tenderness Back/Spine/Pelvis Back: no CVA tenderness Skin General skin exam: no rashes or lesions noted Neuro General: patient oriented x3 and moves all extremities Extrem General: Yes no pedal edema Assessment & Plan Assessment & Plan (1) CKD (chronic kidney disease) stage 3, GFR 30-59 ml/min: Code(s): N18.30 - Chronic kidney disease, stage 3 unspecified Qualifiers: Chronic kidney disease stage 3 subtype: stage 3a (GFR 45-59) Qualified Code(s): N18.31 - Chronic kidney disease, stage 3a (2) Hypertension: Code(s): I10 - Essential (primary) hypertension Qualifiers: Hypertension type: primary hypertension Qualified Code(s): I10 - Essential (primary) hypertension Plan [place] has chronic kidney disease likely due to vascular disease. He has longstanding diabetes and hypertension. He is on RICK-inhibitor along with other antihypertensive medications. His blood sugar and blood pressure control is quite good. He is on statins. Her volume status was optimal. He avoids nonsteroidal anti-inflammatory medications and maintain good hydration. He is followed by cardiology. He can continue on his current medication regimen. I did not make any medication changes today. Follow-up lab work were ordered. Time spent retrieving data, documentation and patient encounter 23 minutes. All questions answered. Follow-up given Orders: Orders Electrolytes Today I10 - Essential (primary) hypertension, N18.30 - Chronic kidney disease, stage 3 unspecified Blood Urea Nitrogen Today I10 - Essential (primary) hypertension, N18.30 - Chronic kidney disease, stage 3 unspecified Creatinine Today I10 - Essential (primary) hypertension, N18.30 - Chronic kidney disease, stage 3 unspecified Protein Creatinine Ratio, Ur Today I10 - Essential (primary) hypertension, N18.30 - Chronic kidney disease, stage 3 unspecified Coding Level of Care Code Est Pt Level 4 (00635) Diagnoses Stage 3a chronic 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 Chronic kidney disease stage 3 subtype: stage 3a (GFR 45-59) Primary hypertension I10 Hypertension type: primary hypertension Results Reviewed Nephrology Results: No Data to Display
[2023-04-18 10:40] VITALS: BP 120/70; PULSE 79; O2SAT 99; BMI 28.3
== END 2023-04-18 11:14 | disposition home or self-care (01) ==
PROVIDERS: PCP Family Medicine; Visit Provider Internal Medicine Nephrology
DX: N18.31 Chronic kidney disease, stage 3a (principal); I10 Essential (primary) hypertension
CPT/HCPCS: 99214

== ENCOUNTER → 2023-04-18 10:27 | Outpatient (BNVA) | payer MEDICARE, SELFPAY | PROVIDERS: PCP Family Medicine; Visit Provider Internal Medicine Nephrology | DX: I12.9 Hypertensive chronic kidney disease with stage 1 through stage 4 chronic kidney disease, or unspecified chronic kidney disease (principal); N18.31 Chronic kidney disease, stage 3a | CPT/HCPCS: 99212 ==

== ENCOUNTER 2023-04-26 08:04 | Outpatient (AMB) | payer MEDICARE, SELFPAY ==
[2023-04-26 08:15] LABS: Prothrombin Time Whole Bld POC 33.9 sec (11.1-13.5); ~PT, ~INR - Anti Coag Clinic 2.8 (0.9-1.1)
--- NOTE | 2023-04-26 08:18 | MHC.OFFVISCO ---
Intake Intake Visit Reasons: Anticoagulation Allergies hydralazine [Hydralazine] Allergy (Unknown, Verified 04/26/23 08:10) SEVERE HEADACHE Medication List - Last Reconciled 04/26/23 by Elisa Jon RN amlodipine 10 mg PO DAILY 90 days betamethasone valerate 0.1% 1 appl topical BID PRN 14 days blood sugar diagnostic As directed blood sugar diagnostic (OneTouch Ultra Test strips) 1 strip miscellaneous BID 1 month bumetanide 1 mg PO Q OTHER DAY calcium polycarbophil (FiberCon) 625 mg PO DAILY 30 days carboxymethylcellulose sodium 0.5% (Refresh Tears) 1 drp ophthalmic (eye) BID carboxymethylcellulose sodium 1% (Artificial Tears (carboxymethylcellulose)) 1 drp ophthalmic (eye) QID diclofenac sodium 1% (Voltaren Arthritis Pain) 4 grams topical QID PRN 30 days dutasteride 0.5 mg PO DAILY 90 days glipizide ER 2.5 mg PO DAILY 90 days lancets (ValenTxTouch UltraSoft Lancets) As directed to test blood sugar twice a day. Ninety day supply levothyroxine 125 mcg PO DAILY lisinopril 5 mg PO DAILY 90 days meclizine 25 mg PO BID PRN pravastatin 40 mg PO DAILY tadalafil 5 mg PO DAILY 90 days tadalafil 20 mg PO ONCE PRN 30 days warfarin 4 mg See Protocol PO DAILY Nursing Note INR: 2.8 in therapeutic range Medications and supplements reviewed No changes in health, diet, medications, or supplements, Denies any signs and symptoms of bleeding or bruising or clotting. Bleeding, bruising, clotting discussed Nutritional guidance given Dose: 4mg daily F/U INR: 4 weeks Patient verbalizes understanding of instructions given Anti-Coag Initial Assessment Social Hx Patient Tobacco Use Status: Former Tobacco user Quit Date: 1979 alcohol intake: former Alcohol intake frequency: does not drink Coding Level of Care Code Est Patient Level 1 Diagnoses Current use of anticoagulant therapy Z79.01 Assessment & Plan Assessment & Plan (1) Current use of anticoagulant therapy: Code(s): Z79.01 - correction (current) use of 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
== END 2023-04-26 08:21 | disposition home or self-care (01) ==
LOC: HO.ACS 08:04
PROVIDERS: PCP Family Medicine; Visit Provider Internal Medicine
DX: Z79.01 Long term (current) use of anticoagulants (principal)

== ENCOUNTER → 2023-04-26 08:04 | Outpatient (BNVA) | payer MEDICARE, SELFPAY | PROVIDERS: PCP Family Medicine; Visit Provider Internal Medicine | DX: I48.0 Paroxysmal atrial fibrillation (principal); Z51.81 Encounter for therapeutic drug level monitoring; Z79.01 Long term (current) use of anticoagulants | CPT/HCPCS: 85610; 99211 ==

== ENCOUNTER 2023-05-08 08:50 | Outpatient (AMB) | payer MEDICARE, SELFPAY ==
--- NOTE | 2023-05-08 08:59 | MHC.OFFVIS ---
Intake Vital Signs 05/08/23 09:01 Height 5 ft 6 in Weight 172 lb BMI 27.8 BP 134/60 Blood Pressure Location Rt brachial Position Sitting Pulse 63 Pulse Source Pulse Oximeter Pulse Oximetry (%) 99 Oxygen Delivery Method Room Air Intake Visit Reasons: COPD [employer] Required: No Allergies hydralazine [Hydralazine] Allergy (Unknown, Verified 05/08/23 08:59) SEVERE HEADACHE HPI HPI Comments History of Present Illness Details The patient is an 88 [id number] gentleman, [place] , who is presenting with the normal CT scan of the chest. The patient denies any respiratory complaints. He denies any shortness of breath or cough. He denies any night sweats or any weight loss. He has always been involved with his martial arts and tries to stay active. 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 The patient did have a CT scan of the chest recently which was personally by me. 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 I did review his previous CT scan from 2017 in the right hemidiaphragm elevation is chronic. I he does state when he was young he did fall from about 8-12 feet and landed on the right side. we did speak about different conditions that can result in the elevation of the diaphragm. But at this point the patient is asymptomatic and based on the chronicity I would not do any further testing. The patient also has evidence of pulmonary nodules. The larger nodule is in the calcified consistent with granulomatous disease. the patient did spend time around the world as part of the [employer]. Therefore he is at risk for development of latent tuberculosis. He denies ever been tested for tuberculosis that he is aware of. it is reassuring that the pulmonary nodules have not significantly changed when compared to 2017. the patient does not have any significant symptoms do from a respiratory status so therefore will undergo blood work to assess the granulomas including rule out tuberculosis. 11/29/2021 the patient is here for a pulmonary follow-up visit. Overall the patient has been doing well. He did look back to see if he had any injuries to his right chest. He states that more than 20 years ago he had 2 large breaks on his chest that were broken during a martial arts exhibition. From a respiratory status is not holding him back he still exercising walking regularly. He still practicing martial arts. We did look at the blood work including a positive TB spot suggesting latent tuberculosis with his calcified pulmonary nodules. He denies any symptoms of weight loss night sweats hemoptysis or cough at this time. Will plan to follow up the pulmonary nodules in 6 months from now. If the patient develops any worsening symptoms prior to that is to call for an earlier appointment. He also document some wheezing at times when he walks. But is very transient and goes away on its own. The patient was offered a rescue inhaler but he really does not want 1 since he is taking so many medications already. I did encourage him to call the office if he develops any worsening respiratory symptoms prior to the next appointment. 05/24/2022 the patient is here for a pulmonary follow-up visit. Overall the patient is doing well from a respiratory status. He does complaint of some right upper quadrant abdominal discomfort at times. He is wondering if it is from the lungs. At this point he does not have the discomfort. It comes and goes and it radiates to the back. It about moderate severity when it does happen. We did review his last CT scan of the chest demonstrating stable pulmonary nodules. The patient does have an elevated right hemidiaphragm likely secondary to a traumatic injury in the past. In the meantime the abdominal discomfort that he is describing is pointing to his gallbladder way a significant amount of stones. At this point the patient is asymptomatic. If the patient develops any further right upper quadrant abdominal discomfort he is to get evaluated for potential gallbladder disease. It is also reassuring that the pulmonary nodules are not changing. Therefore, I will not order a repeat CT scan at this time. If however the patient develops any new or concerning symptoms we can always re-evaluate at that time. 05/08/2023 the patient is here for a pulmonary follow-up visit. Overall the patient is doing fairly well. Still complaining of right-sided chest discomfort. Is off and on. Typically with sudden movements it can be more significant. Right now she was better although he did precipitate a little bit by doing his martial arts movements. 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 We did review his last chest x-ray that she had back in October 2022 demonstrating elevated hemidiaphragm which is chronic for him. Likely related to trauma which is blood trauma back when he was in high school. The patient's last CT scan was a year ago and it demonstrated stable pulmonary nodules. We did not have to follow-up with additional CT scans at this time unless his discomfort worsens. We did talk about [id number] medications to consider such as turmeric or glucosamine chondroitin 10 for his arthritis. The patient will follow up with his primary care doctor as well. Will follow-up in a year's time if the patient has any worsening symptoms prior to the next visit he will should call for earlier assessment. [facility] Medical History (Updated 05/08/23 @ 09:23 by Delbert Finley MD) Chest pain RUQ pain Wheezing Elevated diaphragm Pulmonary nodules Aortic stenosis Edema CAD (coronary artery disease) Diabetes type 2, controlled Elevated prostate specific antigen between 10 and 19 ng/ml Atrial fibrillation [place]'s disease Elevated morning serum cortisol level Surgical History History of cardiac cath Hx of tonsillectomy Hx of colonoscopy Family History Father Colon cancer Mother HTN (hypertension) Type 2 diabetes mellitus Brother No problems noted. Sister No problems noted. Son No problems noted. Son No problems noted. Son No problems noted. Daughter No problems noted. Daughter No problems noted. Social History Housing: Apartment Alcohol intake: former Year quit: 1979 Patient Tobacco Use Status: Former Tobacco user Quit Date: 1979 Years Smoked: 45+ e-Cigarette/Vaping Use: Never Used Second Hand Smoke Exposure: No service: Yes ([employer] [id number]) Current occupational status: retired Current occupational exposures/hazards: No Cognitive needs: No Hearing needs: Yes Vision needs: No Review of Systems Const Denies night sweats ENT Denies change in voice, Denies lip swelling, Denies mouth pain, Reports nasal congestion, Reports nasal discharge and Denies tongue swelling Card Reports chest pain Resp Denies cough and Reports pain on inspiration GI Reports abdominal pain Musc Denies no additional complaints Neuro Denies Neuro-related abnormal movements Psych Denies no additional complaints Joel/Lymph Denies easy bleeding and Denies lymphadenopathy Aller/Immun Denies lip swelling and Denies tongue swelling Physical Exam Vital Signs: Last Vital Signs Pulse 63 05/08/23 09:01 BP 134/60 05/08/23 09:01 Pulse Ox 99 05/08/23 09:01 Oxygen Delivery Method Room Air 05/08/23 09:01 BMI result Body Mass Index 27.8 Const General: alert Neck Neck: Yes normal visual inspection, Yes full ROM and Yes no lymphadenopathy Chest Chest palpation & inspection: normal inspection of the chest Resp Auscultation: diminished lung sounds Cardio Rate: regular rate Rhythm: regular rhythm Heart sounds: S1 normal heart sound present and S2 normal heart sound present GI Palpation (GI): Soft to palpation and nontender Auscultation: normal bowel sounds Skin General skin exam: rashes and/or lesions noted Assessment & Plan Assessment & Plan (1) Pulmonary nodules: Code(s): R91.8 - Other nonspecific abnormal finding of lung field (2) Elevated diaphragm: Comment: Right side. Likely trauma. Asymptomatic Code(s): J98.6 - Disorders of diaphragm (3) Chest pain: Comment: reproducible Code(s): R07.9 - Chest pain, unspecified Qualifiers: Chest pain type: intercostal pain Qualified Code(s): R07.82 - Intercostal pain Plan Consider PEDRO as needed OTC Tumeric or Glucosamine Chondrontin for arthritis pains F/U 12 months or sooner if any issues arise Coding Level of Care Code Est Pt Level 4 (32938) Diagnoses Pulmonary nodules R91.8 Elevated diaphragm J98.6 Intercostal pain R07.82 Chest pain type: intercostal pain Time Spent (min) 16
[2023-05-08 09:01] VITALS: BP 134/60; PULSE 63; O2SAT 99; BMI 27.8
== END 2023-05-08 09:22 | disposition home or self-care (01) ==
PROVIDERS: PCP Family Medicine; Referring Provider Family Medicine; Visit Provider Hospitalist
DX: R91.8 Other nonspecific abnormal finding of lung field (principal); J98.6 Disorders of diaphragm; R07.82 Intercostal pain
CPT/HCPCS: 99214

== ENCOUNTER → 2023-05-08 08:50 | Outpatient (BNVA) | payer MEDICARE, SELFPAY | PROVIDERS: PCP Family Medicine; Visit Provider Hospitalist | DX: R91.8 Other nonspecific abnormal finding of lung field (principal); J98.6 Disorders of diaphragm; R07.82 Intercostal pain | CPT/HCPCS: 99212 ==

== ENCOUNTER 2023-05-23 08:15 | Outpatient (AMB) | payer MEDICARE, SELFPAY ==
[2023-05-23 08:29] LABS: Prothrombin Time Whole Bld POC 26.7 sec (11.1-13.5); ~PT, ~INR - Anti Coag Clinic 2.2 (0.9-1.1)
--- NOTE | 2023-05-23 08:32 | MHC.OFFVISCO ---
Intake Intake Visit Reasons: Anticoagulation Allergies hydralazine [Hydralazine] Allergy (Unknown, Verified 05/23/23 08:23) SEVERE HEADACHE Medication List - Last Reconciled 05/23/23 by Delia Claros RN amlodipine 10 mg PO DAILY 90 days betamethasone valerate 0.1% 1 appl topical BID PRN 14 days blood sugar diagnostic As directed blood sugar diagnostic (CromoUpTouch Ultra Test strips) 1 strip miscellaneous BID 1 month bumetanide 1 mg PO Q OTHER DAY calcium polycarbophil (FiberCon) 625 mg PO DAILY 30 days carboxymethylcellulose sodium 1% (Artificial Tears (carboxymethylcellulose)) 1 drp ophthalmic (eye) QID diclofenac sodium 1% (Voltaren Arthritis Pain) 4 grams topical QID PRN 30 days dutasteride 0.5 mg PO DAILY 90 days glipizide ER 2.5 mg PO DAILY 90 days lancets (CromoUpTouch UltraSoft Lancets) As directed to test blood sugar twice a day. Ninety day supply levothyroxine 125 mcg PO DAILY lisinopril 5 mg PO DAILY 90 days meclizine 25 mg PO BID PRN pravastatin 40 mg PO DAILY tadalafil 5 mg PO DAILY 90 days tadalafil 20 mg PO ONCE PRN 30 days warfarin 4 mg See Protocol PO DAILY Nursing Note NO CP,SOB,DIET/MED CHANGES,FALLS OR SXZ OF BLEEDING. CONTINUE 4MGM DAILY AND FOLLOW-UP IN 4 WEEKS. GOOD UNDERSTANDING OF DOSING INSTR. 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
== END 2023-05-23 08:33 | disposition home or self-care (01) ==
LOC: HO.ACS 08:15
PROVIDERS: PCP Family Medicine; Visit Provider Internal Medicine
DX: Z79.01 Long term (current) use of anticoagulants (principal)

== ENCOUNTER → 2023-05-23 08:15 | Outpatient (BNVA) | payer MEDICARE, SELFPAY | PROVIDERS: PCP Family Medicine; Visit Provider Internal Medicine | DX: I48.0 Paroxysmal atrial fibrillation (principal); Z79.01 Long term (current) use of anticoagulants; Z51.81 Encounter for therapeutic drug level monitoring | CPT/HCPCS: 85610; 99211 ==

== ENCOUNTER 2023-06-07 09:11 | Outpatient (AMB) | payer MEDICARE, SELFPAY ==
--- NOTE | 2023-06-07 09:12 | MHC.OFFVIS ---
Intake Intake Visit Reasons: 3M Med Review(Tadalafil) Intake Note: Patient is Present for Telephone Follow Up Med Review Urology Med: Tadalafil, Dutasteride, Antibiotic Allergy:None Blood Thinner: Warfarin Allergies hydralazine [Hydralazine] Allergy (Unknown, Verified 06/07/23 09:14) SEVERE HEADACHE Medication List - Last Reconciled 06/07/23 by Dennis Francis MD amlodipine 10 mg PO DAILY 90 days betamethasone valerate 0.1% 1 appl topical BID PRN 14 days blood sugar diagnostic As directed blood sugar diagnostic (OneTouch Ultra Test strips) 1 strip miscellaneous BID 1 month bumetanide 1 mg PO Q OTHER DAY calcium polycarbophil (FiberCon) 625 mg PO DAILY 30 days carboxymethylcellulose sodium 1% (Artificial Tears (carboxymethylcellulose)) 1 drp ophthalmic (eye) QID diclofenac sodium 1% (Voltaren Arthritis Pain) 4 grams topical QID PRN 30 days dutasteride 0.5 mg PO DAILY 90 days glipizide ER 2.5 mg PO DAILY 90 days lancets (Orckit CommunicationsTouch UltraSoft Lancets) As directed to test blood sugar twice a day. Ninety day supply lancets (OneTouch UltraSoft 2 Lancet) As directed levothyroxine 125 mcg PO DAILY lisinopril 5 mg PO DAILY 90 days meclizine 25 mg PO BID PRN pravastatin 40 mg PO DAILY tadalafil 5 mg PO DAILY 90 days tadalafil 20 mg PO ONCE PRN 30 days warfarin 4 mg See Protocol PO DAILY HPI HPI Comments History of Present Illness Details [place] Rivers is a very pleasant male. He is a patient of Dr Muniz and Dr Vuong at the [facility]. He is seen for the following urologic conditions. - BPH elevated PSA - erectile dysfunction - primary testicular failure and hypergonadtoropic hypogonadism Telemedicine Evaluation 15 min Consultation Doximity Aparna Video attempted Persistent elevation FSH and LH. 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 Has lab work that is upper limit of normal for a number of these evaluations - subclinical Jayy's disease Cialis ineffective Followup in 6 months Elevated PSA/Abnormal NEO: Current management is medication with 5AR. Laboratory investigations include 10/22 , a total PSA evaluation 4.99 03/24 , a total PSA evaluation - reports as 3.5 09/22 3.0 09/23 1.4, 03/27 3.4, 09/25 FSH 56 T 273, 04/27 FSH 52, LH 22, T 177, PSA 1.3, 10/27 FSH 53 LH 42 E 32, 12/27 P 1.2 Individualized Prostate Cancer Risk Calculator 5-10% high risk, Would like to continue with observation and understands and accepts the risks of a possible delay in diagnosis. Symptoms include 09/22 , nocturia, x 1, and are improving. Overall symptoms are mild. Erectile dysfunction Combination of daily and on demand [facility] Medical History (Updated 05/08/23 @ 09:23 by Delbert Finley MD) Chest pain RUQ pain Wheezing Elevated diaphragm Pulmonary nodules Aortic stenosis Edema CAD (coronary artery disease) Diabetes type 2, controlled Elevated prostate specific antigen between 10 and 19 ng/ml Atrial fibrillation Jayy's disease Elevated morning serum cortisol level Surgical History History of cardiac cath Hx of tonsillectomy Hx of colonoscopy Family History Father Colon cancer Mother HTN (hypertension) Type 2 diabetes mellitus Brother No problems noted. Sister No problems noted. Son No problems noted. Son No problems noted. Son No problems noted. Daughter No problems noted. Daughter No problems noted. Social History Housing: Apartment Alcohol intake: former Year quit: 1979 Patient Tobacco Use Status: Former Tobacco user Quit Date: 1979 Years Smoked: 45+ e-Cigarette/Vaping Use: Never Used Second Hand Smoke Exposure: No service: Yes ([employer] [id number]) Current occupational status: retired Current occupational exposures/hazards: No Cognitive needs: No Hearing needs: Yes Vision needs: No Review of Systems Const All systems reviewed & are unremarkable except as noted in HPI and below Reports no additional complaints Resp Reports no additional complaints GI Reports no additional complaints Reports as per HPI Musc Reports no additional complaints Physical Exam Telemedicine evaluation Appropriate responses Regular breathing rate and rhythm HEENT Head: Yes normal to inspection Ears: hearing grossly normal bilaterally Eyes General: appearance normal, both eyes and all related structures Neck Neck: Yes normal visual inspection Chest Chest palpation & inspection: normal inspection of the chest Resp Effort & Inspection: normal respiratory effort and able to speak in complete sentences Assessment & Plan Assessment & Plan (1) Erectile dysfunction associated with type 2 diabetes mellitus: Code(s): E11.69 - Type 2 diabetes mellitus with other specified complication; N52.1 - Erectile dysfunction due to diseases classified elsewhere (2) BPH w urinary obs/LUTS: Code(s): N40.1 - Benign prostatic hyperplasia with lower urinary tract symptoms; N13.8 - Other obstructive and reflux uropathy Plan Stop Finasteride Stop tadalafil Six-month follow-up PSA Orders: Orders Prostate Specific Antigen 6 Months E11.69 - Type 2 diabetes mellitus with other specified complication, N52.1 - Erectile dysfunction due to diseases classified elsewhere Medications: Discontinued dutasteride Discontinued Reason: Doctor's Order 0.5 mg PO DAILY 90 days 90 caps 1RF N13.8 - Other obstructive and reflux uropathy, N40.1 - Benign prostatic hyperplasia with lower urinary tract symptoms tadalafil [id number] [facility] [id number] Member [id number] Discontinued Reason: Doctor's Order 5 mg PO DAILY 90 days 90 tabs 0RF sexual activity E11.69 - Type 2 diabetes mellitus with other specified complication, N52.1 - Erectile dysfunction due to diseases classified elsewhere tadalafil On demand medication Discontinued Reason: Doctor's Order 20 mg PO ONCE 30 days PRN 30 tabs 1RF sexual activity N52.01 - Erectile dysfunction due to arterial insufficiency Telehealth Telehealth Location of provider rendering services: practice address Location of patient: address on file Patient Identification confirmed using: Name, : Yes Telehealth method: video Patient verbally consented to treatment: Yes Patient verbally consented to billing insurance company: Yes Patient informed of any privacy concerns related to visit: Yes Coding Level of Care Code Tele Est Pt Level 3 (13785) Diagnoses Erectile dysfunction associated with type 2 diabetes mellitus E11.69; N52.1 BPH w urinary obs/LUTS N40.1; N13.8
== END 2023-06-07 10:53 | disposition home or self-care (01) ==
LOC: HO.HUSH 09:11
PROVIDERS: PCP Family Medicine; Supervising Provider Family Medicine; Visit Provider Urology
DX: E11.69 Type 2 diabetes mellitus with other specified complication (principal); N52.1 Erectile dysfunction due to diseases classified elsewhere; N40.1 Benign prostatic hyperplasia with lower urinary tract symptoms; N13.8 Other obstructive and reflux uropathy
CPT/HCPCS: 99213

== ENCOUNTER → 2023-06-07 09:11 | Outpatient (BNVA) | payer MEDICARE, SELFPAY | PROVIDERS: PCP Family Medicine; Visit Provider Urology ==

== ENCOUNTER 2023-06-23 07:41 | Outpatient (REF) | payer MEDICARE, SELFPAY ==
[2023-06-23 09:38] LABS: Anion Gap 10 (12-20); Blood Urea Nitrogen 29 mg/dL (9-16); Calcium 9.2 mg/dL (8.4-10.2); Carbon Dioxide 27 mmol/L (22-29); Chloride 108 mmol/L (96-108); Estimated Glomerular Filt Rate 49; Glucose Random 200 mg/dL (60-115); Potassium 4.5 mmol/L (3.3-5.1); Sodium 140 mmol/L (135-145)
[2023-06-23 11:24] LABS: Appearance Urine Clear; Color Urine Yellow; Glucose Urine UA Negative (Negative); Leukocyte Esterase Urine Negative (Negative); Nitrite Urine Negative (Negative); PH 5.5 (5.0-9.0); UMIC TRIGGER UA YES; Urine Blood Trace (Negative); Urine Ketones Negative (Negative); Urine Protein Negative (Neg-Trace)
[2023-06-23 11:32] LABS: Bacteria Urine None Seen (None Seen); Hyaline Casts Urine 0-2 /LPF (0-2); RBC Urine 0-2 /HPF (0-2); Squamous Epithelial Cell Urine 0-2 /HPF (0-2); WBC Urine 0-5 /HPF (0-5)
[2023-06-23 11:45] LABS: Creatinine Urine 17.37 mg/dL; Total Protein Urine Random < 7 mg/dL (<12)
[2023-06-23 12:10] LABS: Creatinine Urine 17.38 mg/dL; Microalbum/Creatinine Ratio Ur 74.7 ug/mg cr (<30)
== END 2023-06-23 07:42 | disposition home or self-care (01) ==
LOC: HO.LAB 07:41
PROVIDERS: Internal Medicine Nephrology; PCP Family Medicine; Visit Provider Family Medicine
DX: Z00.00 Encounter for general adult medical examination without abnormal findings (principal); I12.9 Hypertensive chronic kidney disease with stage 1 through stage 4 chronic kidney disease, or unspecified chronic kidney disease; N18.31 Chronic kidney disease, stage 3a
CPT/HCPCS: 36415; 80048; 81001; 82043; 82570; 84156

== ENCOUNTER 2023-06-27 08:51 | Outpatient (AMB) | payer MEDICARE, SELFPAY ==
[2023-06-27 09:06] LABS: Prothrombin Time Whole Bld POC 25.8 sec (11.1-13.5); ~PT, ~INR - Anti Coag Clinic 2.1 (0.9-1.1)
--- NOTE | 2023-06-27 09:10 | MHC.OFFVISCO ---
Intake Intake Visit Reasons: Anticoagulation Allergies hydralazine [Hydralazine] Allergy (Unknown, Verified 06/27/23 08:59) SEVERE HEADACHE Nursing Note PT.STATES THAT HE COMPLETED COURSE OF PAXLOVID 3-4 DAYS AGO STATING THAt he feels well. NO CP,SOB,DIET/MED CHANGES OR SX OF BLEEDING. CONTINUE 4MGM DAILY AND FOLLOW-UP IN 4 WEEKS. GOOD UNDERSTANDING OF DOSING INSTR.L Anti-Coag Initial Assessment Social Hx Patient Tobacco Use Status: Former Tobacco user Quit Date: 1979 alcohol intake: former Alcohol intake frequency: does not drink Coding Level of Care Code Est Patient Level 1 Diagnoses Current use of anticoagulant therapy Z79.01 Results AMB INR Fingerstick AMB INR Fingerstick 2.1 Last Edit by Delia Claros RN on 06/27/23 09:07 Assessment & Plan Assessment & Plan (1) Current use of anticoagulant therapy: Code(s): Z79.01 - [facility] (current) use of 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
== END 2023-06-27 09:13 | disposition home or self-care (01) ==
LOC: HO.ACS 08:51
PROVIDERS: PCP Family Medicine; Visit Provider Internal Medicine
DX: Z79.01 Long term (current) use of anticoagulants (principal)

== ENCOUNTER → 2023-06-27 08:51 | Outpatient (BNVA) | payer MEDICARE, SELFPAY | PROVIDERS: PCP Family Medicine; Visit Provider Internal Medicine | DX: I48.0 Paroxysmal atrial fibrillation (principal); Z79.01 Long term (current) use of anticoagulants; Z51.81 Encounter for therapeutic drug level monitoring | CPT/HCPCS: 85610; 99211 ==

== ENCOUNTER 2023-07-05 10:01 | Outpatient (REF) | payer MEDICARE, SELFPAY ==
[2023-07-05 11:38] LABS: Free T4 (Free Thyroxine) 1.01 ng/dL (0.71-1.85); Thyroid Stimulating Hormone 0.97 uIU/mL (0.32-4.0)
== END 2023-07-05 10:02 | disposition home or self-care (01) ==
LOC: HO.LAB 10:01
PROVIDERS: Absent Provider Internal Medicine Nephrology; PCP Family Medicine; Visit Provider Internal Medicine Endocrinology, Diabetes & Metabolism
DX: E03.9 Hypothyroidism, unspecified (principal); E24.0 Pituitary-dependent Cushing's disease
CPT/HCPCS: 36415; 84439; 84443

== ENCOUNTER 2023-07-10 07:44 | Outpatient (AMB) | payer MEDICARE, SELFPAY ==
[2023-07-10 07:46] VITALS: BP 132/58; PULSE 71; BMI 28.7
--- NOTE | 2023-07-10 07:46 | A.OFFVIS_ITS ---
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 Last seen by Dr. Plata on 09/27/2022. 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 Accompanied by: Self / Same As Patient Allergies hydralazine [Hydralazine] Allergy (Unknown, Verified 07/10/23 07:52) SEVERE HEADACHE Medication List - Last Reconciled 07/10/23 by Boston Jeffers MD amlodipine 10 mg PO DAILY 90 days betamethasone valerate 0.1% 1 appl topical BID PRN 14 days blood sugar diagnostic As directed blood sugar diagnostic (Envision HealthcareTouch Ultra Test strips) 1 strip miscellaneous BID 1 month bumetanide 1 mg PO Q OTHER DAY calcium polycarbophil (FiberCon) 625 mg PO DAILY 30 days carboxymethylcellulose sodium 1% (Artificial Tears (carboxymethylcellulose)) 1 drp ophthalmic (eye) QID diclofenac sodium 1% (Voltaren Arthritis Pain) 4 grams topical QID PRN 30 days glipizide ER 2.5 mg PO DAILY 90 days lancets (Envision HealthcareTouch UltraSoft Lancets) As directed to test blood sugar twice a day. 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 The patient last saw Dr. Plata on 09/27/2022 First diagnosed with Hypogonadism in 2018. Llabs 07/11/2019 reveal a Total Testosterone of 203. His PSA has been elevated over 6 in the past, but declined to 1.35 as of 10/02/2019. He follows with Urology for this, and was deemed to be high risk for prostate cancer. Labs repeated by ok 11/17/2019 which reveal Total Testosterone WNL, Free Testosterone slightly below the lower limit of normal, but elevated FSH and LH. Labs again repeated by ok December 2019 which revealed total testosterone and free testosterone just below the lower limit of normal, still with elevated FSH and LH. He underwent a pituitary MRI 01/07/2020 which revealed a possible 3 mm focus of hypo enhancement within the left aspect of the anterior pituitary low. This was read as a possible micro adenoma, but the read was not definitive. He had a full pituitary panel which revealed hypothyroidism, as well as an am cortisol higher than expected. He underwent a 1 mg overnight DSST which was abnormal. He then underwent an 8 mg overnight DSST with results presupression Cortisol 28.3 with ACTH 34, Dex level <20, post suppression Cortisol 3.0 with ACTH <5. Unfortunately no postsuppression DEX level was checked. He then had a midnight salivary cortisol and a 24 hour urine cortisol, both of which were WNL and not consistent with jayy's disease. He had 2 subsequent midnight salivary cortisol level drawns 1 of which was mildly elevated, and 1 WNL. He then opted for no further workup or treatment of his jayy's disease as he stated he was felling well. He had a repeat pituitary panel that was largely unchanged. His levothyroxine was increased by his PCP to 150 mcg PO daily and TSH is now suppressed. He underwent a scrotal US which revealed bilateral hydroceles. He is followed by Urology for this. He was started on Sildenafil by Urology for ED. Pituitary MRI: 10/25/2021 FINDINGS: On the current study, there is a 1 mm focus of hypoenhancement within the anterior pituitary gland to the left of midline, best visualized on image 15 of series 9 which appears to extend to the superior surface of the gland on image 14 and more likely represents a tiny cleft in the gland, unchanged in appearance. The previously noted 3 mm focus of hypoenhancement on the left side of the gland is not as well visualized on the current study and appears slightly more diffuse suggesting some heterogeneous enhancement on current study on the left. No definite discrete pituitary mass lesion. The infundibulum enhances normally and is unchanged in position in appearance. The cavernous sinuses are symmetric and enhance normally. No suprasellar or juxtasellar masses are identified. No focal reduced diffusion is seen to suggest acute or subacute cerebral ischemia. Scattered punctate and patchy zones of FLAIR/T2 signal hyperintensity are noted within the subcortical and deeper periventricular white matter of both cerebral hemispheres without abnormal enhancement, which are nonspecific findings but likely reflect chronic ischemic microangiopathy in a patient of this age, similar to the prior exam. Punctate focus of T2 hyperintensity in the right mouna, stable in appearance consistent with chronic ischemic microangiopathy. No intracranial mass lesions, abnormal brain parenchymal or leptomeningeal enhancement, space-occupying process, or mass effect. There is a tiny remote lacunar infarct in the head of the right caudate nucleus, stable in appearance. The ventricular system and subarachnoid spaces are consistent with mild to moderate generalized diffuse nonspecific brain parenchymal volume loss without hydrocephalus, stable in appearance. Normal signal voids are seen in the visualized major intracranial vessels. There is minor mucosal thickening in the ethmoid complex, unchanged in appearance. Bony structures appear intact. MR/MR head/brain wo/w con IMPRESSION: 1. Previously noted 3 mm focus of hypoen hancement on the left side of the pituitary gland appears more diffuse, less well circumscribed on current study, appearing as slightly heterogeneous enhancement. Probable tiny cleft along the superior surface of the gland on the left is stable. 2. 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 3. Follow-up as per clinical indications . Scrotal US 12/15/2019: FINDINGS: RIGHT: Right testicle measures 2.5 x 2.0 x 1.9 cm, volume 5.0 mL. No focal testicular parenchymal lesions are visualized. Spectral Doppler analysis of the arterial and venous flow is normal in the right testis. Right epididymal head is normal in size. A right-sided hydrocele is present. No right-sided varicocele is present. Right epididymal Doppler flow is normal LEFT: Left testicle measures 2.4 x 2.2 x 2.2 cm, volume 5.8 mL. No focal testicular parenchymal lesions are visualized. Spectral Doppler analysis of the arterial and venous flow is normal in the left testis. Left epididymal head is normal in size. A left-sided hydrocele is present. No varicocele is seen. Left epididymal Doppler flow is normal. IMPRESSION: Bilateral hydroceles. Labs: Laboratory Tests 09/20/22 09/20/22 09/20/22 07:05 07:05 07:05 Sodium Potassium Creatinine Estimated GFR TSH 0.12 L Free T4 1.56 Total T3 99 FSH 44.2 H Luteinizing Hormon e 25.5 H Prolactin 6.0 Sex Hormone Bind G lob 72 Random Cortisol 09/20/22 09/21/22 07:05 11:20 Sodium 145 Potassium 4.6 Creatinine 1.42 H Estimated GFR 47 TSH Free T4 Total T3 FSH Luteinizing Hormon e Prolactin Sex Hormone Bind G lob Random Cortisol 15.4 Currently on 125 mcg levothyroxine for hypothyroidism [facility] Medical History (Updated 05/08/23 @ 09:23 by Delbert Finley MD) Chest pain RUQ pain Wheezing Elevated diaphragm Pulmonary nodules Aortic stenosis Edema CAD (coronary artery disease) Diabetes type 2, controlled Elevated prostate specific antigen between 10 and 19 ng/ml Atrial fibrillation Jayy's disease Elevated morning serum cortisol level Surgical History History of cardiac cath Hx of tonsillectomy Hx of colonoscopy Family History Father Colon cancer Mother HTN (hypertension) Type 2 diabetes mellitus Brother No problems noted. Sister No problems noted. Son No problems noted. Son No problems noted. Son No problems noted. Daughter No problems noted. Daughter No problems noted. Social History Housing: Apartment Alcohol intake: former Year quit: 1979 Patient Tobacco Use Status: Former Tobacco user Quit Date: 1979 Years Smoked: 45+ e-Cigarette/Vaping Use: Never Used Second Hand Smoke Exposure: No service: Yes ([employer] [id number]) Current occupational status: retired Current occupational exposures/hazards: No Cognitive needs: No Hearing needs: Yes Vision needs: No Physical Exam Const Other: There are no cushingoid features. Thyroid gland is normal size weighs about 15 g . There are no thyroid nodules palpated Assessment & Plan Assessment & Plan (1) Hypogonadism in male: Code(s): E29.1 - Testicular hypofunction Plan: This 88-year-old male with a history of primary hypogonadism. Considering patient's age and prostate issues, decision has been made not to treat with testosterone. Plan is that the patient returned to his primary care provider. Suggested primary care provider might want to check bone density considering patient has hypogonadism untreated. (2) Pituitary microadenoma: Code(s): D35.2 - Benign neoplasm of pituitary gland Plan: This is deemed non secretory by testing.. There is no need for any further endocrine workup or follow-up (3) Hypothyroidism (acquired): Code(s): E03.9 - Hypothyroidism, unspecified Plan: Currently on levothyroxine 125 mcg. Appears to be clinically and biochemically euthyroid. Plan is to continue the current therapy. Patient can follow up with primary care provider regarding this and returned back to endocrinology as needed Coding Level of Care Code Est Pt Level 3 (78622) Diagnoses Hypogonadism in male E29.1 Pituitary microadenoma D35.2 Hypothyroidism (acquired) E03.9
== END 2023-07-10 08:14 | disposition home or self-care (01) ==
PROVIDERS: PCP Family Medicine; Visit Provider Internal Medicine Endocrinology, Diabetes & Metabolism
DX: E29.1 Testicular hypofunction (principal); D35.2 Benign neoplasm of pituitary gland; E03.9 Hypothyroidism, unspecified
CPT/HCPCS: 99213

== ENCOUNTER → 2023-07-10 07:44 | Outpatient (BNVA) | payer MEDICARE, SELFPAY | PROVIDERS: PCP Family Medicine; Visit Provider Internal Medicine Endocrinology, Diabetes & Metabolism | DX: E29.1 Testicular hypofunction (principal); E03.9 Hypothyroidism, unspecified; D35.2 Benign neoplasm of pituitary gland | CPT/HCPCS: 99212 ==

== ENCOUNTER 2023-07-17 08:43 | Outpatient (AMB) | payer MEDICARE, SELFPAY ==
[2023-07-17 08:48] VITALS: BP 138/60; PULSE 58; O2SAT 100; BMI 28.9
--- NOTE | 2023-07-17 08:48 | A.OFFPC_ITS ---
Vital Signs 07/17/23 08:48 Height 5 ft 6 in Weight 179 lb BMI 28.9 BP 138/60 Blood Pressure Location Lt brachial Pulse 58 Pulse Source Pulse Oximeter Pulse Oximetry (%) 100 Oxygen Delivery Method Room Air Intake Visit Reasons: f/u diabetes, hypertension Intake Note: Patient is here to follow up on diabetes, hypertension today. Patient states he had low testosterone by Dr. Jeffers. Allergies hydralazine [Hydralazine] Allergy (Unknown, Verified 07/17/23 08:50) SEVERE HEADACHE Medication List - Last Reconciled 07/17/23 by Patrick Muniz MD amlodipine 10 mg PO DAILY 90 days betamethasone valerate 0.1% 1 appl topical BID PRN 14 days blood sugar diagnostic As directed blood sugar diagnostic (OneTouch Ultra Test strips) 1 strip miscellaneous BID 1 month bumetanide 1 mg PO Q OTHER DAY calcium polycarbophil (FiberCon) 625 mg PO DAILY 30 days carboxymethylcellulose sodium 1% (Artificial Tears (carboxymethylcellulose)) 1 drp ophthalmic (eye) QID diclofenac sodium 1% (Voltaren Arthritis Pain) 4 grams topical QID PRN 30 days glipizide ER 2.5 mg PO DAILY 90 days lancets (OneTouch UltraSoft Lancets) As directed to test blood sugar twice a day. Ninety day supply lancets (OneTouch UltraSoft 2 Lancet) As directed levothyroxine 125 mcg PO DAILY lisinopril 5 mg PO DAILY 90 days meclizine 25 mg PO BID PRN pravastatin 40 mg PO DAILY warfarin 4 mg See Protocol PO DAILY Tobacco use date assessed: 07/17/23 Fall risk assessment: No Falls in past year Last assessed Fall Risk: 07/17/23 Dental Screening Dental Screen Date: 07/17/23 Did you have a dental visit in the last 12 months?: Yes Did you have a dental problem in the last 6 months where you did not have access to dental care?: No Was dental information given to patient?: Patient declined HPI f/u diabetes, hypertension HPI Details 88 y/o male presents to f/u diabetes, hy pertension. Blood pressure today is 138/60. He is on lisinopril 5mg and amlodipine 10mg daily. Last A1c 04/17/23 6.5%. A1c today 07/17/23 is 6.6%. He is on glipizide 2.5mg daily. Pt reports increased anxiety. Pt reports hand pain. [facility] Medical History Chest pain RUQ pain Wheezing Elevated diaphragm Pulmonary nodules Aortic stenosis Edema CAD (coronary artery disease) Diabetes type 2, controlled Elevated prostate specific antigen between 10 and 19 ng/ml Atrial fibrillation [place] disease Elevated morning serum cortisol level Surgical History History of cardiac cath Hx of tonsillectomy Hx of colonoscopy Family History Father Colon cancer Mother HTN (hypertension) Type 2 diabetes mellitus Brother No problems noted. Sister No problems noted. Son No problems noted. Son No problems noted. Son No problems noted. Daughter No problems noted. Daughter No problems noted. Social History Housing: Apartment Alcohol intake: former Year quit: 1979 Patient Tobacco Use Status: Former Tobacco user Quit Date: 1979 Years Smoked: 45+ e-Cigarette/Vaping Use: Never Used Second Hand Smoke Exposure: No service: Yes ([employer] [id number]) Current occupational status: retired Current occupational exposures/hazards: No Cognitive needs: No Hearing needs: Yes Vision needs: No Questionnaire PHQ-9 Over the last 2 weeks, how often have you been bothered by any of the following problems? 1. Little interest or pleasure in doing things: not at all 2. Feeling down, depressed, or hopeless: not at all 3. Trouble falling or staying asleep, or sleeping too much: nearly every day 4. Feeling tired or having little energy: nearly every day 5. Poor appetite or overeating: not at all 6. Feeling bad about yourself - or that you are a failure or have let yourself or your family down: several days 7. Trouble concentrating on things, such as reading the newspaper or watching television: not at all 8. Moving or speaking so slowly that other people could have noticed. Or the opposite - being so fidgety or restless that you have been moving around a lot more than usual: not at all 9. Thoughts that you would be better off or of hurting yourself in some way: not at all Total score: 7 Depression Screening Interpretation: Positive Depression Screening Done: Yes 00101 - PHQ-9 Billing: Yes Source: Developed by Drs. Boston Abdi, Nagi Kingston and colleagues, with an educational noni from [employer]. Thrive Questionnaire Date Thrive assessed: 07/17/23 I am a: Patient What is your living situation today?: I have a steady place to live Within the past 12 months, did the food you bought not last and you didn't have the money to get more?: Never true Within the past 12 months, did you worry whether your food would run out before you got money to buy more?: Never true Do you have trouble paying for medicines?: No Do you have trouble getting transportation to medical appointments?: No Do you have trouble paying your heating and electricity bill?: No Do you have trouble taking care of your child, family member or friend?: No Do you have trouble with day-to-day activities such as bathing, preparing meals, shopping, managing finances, etc.?: No Are you currently unemployed and looking for a job?: No Are you interested in more education?: No THRIVE Score: 0 AUDIT C Alcohol Use Questionnaire (AUDIT-C) 1. How often do you have a drink containing alcohol?: Never 3. How often do you have six or more drinks on one occasion?: Never Total Score: 0 KOBE-7 AMB Questionnaire KOBE-7 Date KOBE - 7 assessed: 07/17/23 Feeling nervous, anxious, or on edge: 1 = Several days Not being able to stop or control worryin = Several days Worrying too much about different things: 0 = Not at all Trouble relaxin = Several days Being so restless that it is hard to sit still: 0 = Not at all Becoming easily annoyed or irritable: 1 = Several days Feeling afraid as if something awful might happen: 0 = Not at all Total KOBE-7 score (0-4 normal; 5-9 mild; 10-14 moderate; 15-21 severe): 4 Source: Developed by Ermelinda Rodgers Kurt Kroenke and colleagues, with an educational noni from [employer]. KOBE-7 Assessment Billing KOBE-7 Assessment Tool: KOBE-7 Assessment 79925 Review of Systems Const Denies chills, Denies fatigue, Denies fever(s), Denies headache(s) and Denies weakness ENT Denies dizziness and Denies headache(s) Card Denies dyspnea Resp Denies cough, Denies dyspnea, Denies wheezing and Denies other (shortness of breath) Musc Denies numbness and Denies tingling Neuro Denies dizziness, Denies headache(s), Denies numbness, Denies tingling and Denies weakness Psych Denies anxiety and Denies depression Endo Denies fatigue Aller/Immun Denies wheezing Physical exam (Primary Care) Vital Signs: Last Vital Signs Pulse 58 07/17/23 08:48 BP 138/60 07/17/23 08:48 Pulse Ox 100 07/17/23 08:48 Oxygen Delivery Method Room Air 07/17/23 08:48 BMI result Body Mass Index 28.9 Tobacco/Smoking Status: Tobacco use Status Tobacco use date assessed 07/17/23 07/17/23 08:59 Patient Tobacco Use Status Former Tobacco user 07/17/23 08:59 e-Cigarette/Vaping Use Never Used 07/17/23 08:59 PHQ-9: PHQ-9 Score PHQ-9: Total score 7 07/17/23 09:11 Depression Screening Interpretation: Positive Thrive Assessment: Date of Thrive Assessment Date Thrive assessed 07/17/23 07/17/23 08:59 Const General: well developed; No acute distress Nutritional Appearance: well nourished Orientation/consciousness: patient oriented x3 HENMT Head: Yes normocephalic and Yes atraumatic Eyes General: appearance normal, both eyes and all related structures Pupils: Equal, round and reactive pupils present EOM: EOMs intact bilaterally Resp Effort & Inspection: normal respiratory effort Neuro General: patient oriented x3 and gait normal Cranial nerves: Yes Equal, round and reactive pupils present Psych Affect: normal affect Results AMB Hemoglobin A1c AMB Hemoglobin A1c 6.6 % Last Edit by Daphne Rowley CMA on 07/17/23 09:23 Assessment and Plan Assessment & Plan (1) Hypertension: Code(s): I10 - Essential (primary) hypertension Qualifiers: Hypertension type: primary hypertension Qualified Code(s): I10 - Essential (primary) hypertension Plan: Blood?pressure?mildly?above?goal?of?less?than?130/80 Continue?current?medication Will?continue?to?follow (2) CAD (coronary artery disease): Comment: nonobstructive Code(s): I25.10 - Atherosclerotic heart disease of [place] coronary artery without angina pectoris Plan: Stable (3) Diabetes type 2, controlled: Code(s): E11.9 - Type 2 diabetes mellitus without complications Plan: A1c 6.6% Good?control.??Goal?is?less?than?7.0% Continue?current?medication?regimen (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 - Palmar fascial fibromatosis [Dupuytren] Plan: Warm?compresses?and?topical?NSAIDs Use?padding?when?requiring?tight?pharmacists If?not?improving?will?refer?to?a?hand?specialist (5) Mild depression: Code(s): F32.A - Depression, unspecified Plan: Trial?bupropion (6) Anxiety: Code(s): F41.9 - Anxiety disorder, unspecified Plan: As?above,?trialed?bupropion (7) Hand pain: Code(s): M79.643 - Pain in unspecified hand Plan: As?above Orders: Orders Complete Blood Count Auto Diff Today Z00.00 - Encounter for general adult medical examination without abnormal findings Microalbumin, Random (w Creat) Today I10 - Essential (primary) hypertension UA and rflx microscopic Today Z00.00 - Encounter for general adult medical examination without abnormal findings AMB Hemoglobin A1c Today Z13.9 - Encounter for screening, unspecified Comprehensive [place]. Panel Fast Today Z00.00 - Encounter for general adult medical examination without abnormal findings Lipid Panel Today Z00.00 - Encounter for general adult medical examination without abnormal findings Prostate Specific Antigen Scr Today Z12.5 - Encounter for screening for malignant neoplasm of prostate Medications: New bupropion HCl 75 mg PO ONCE 30 tabs 1RF 30 days Coding Level of Care Code Est Pt Level 4 (52472) Diagnoses Primary hypertension I10 Hypertension type: primary hypertension CAD (coronary artery disease) I25.10 Diabetes type 2, controlled E11.9 Palmar fibromatosis M72.0 Mild depression F32.A Anxiety F41.9 Hand pain M79.643 Additional Codes KOBE-7 Assessment Billing - KOBE-7 Assessment Tool: KOBE-7 Assessment 76330 ([id number])
== END 2023-07-17 09:34 | disposition home or self-care (01) ==
PROVIDERS: PCP Family Medicine; Visit Provider Family Medicine
DX: I10 Essential (primary) hypertension (principal); I25.10 Atherosclerotic heart disease of native coronary artery without angina pectoris; E11.9 Type 2 diabetes mellitus without complications; M72.0 Palmar fascial fibromatosis [Dupuytren]; F32.A Depression, unspecified; F41.9 Anxiety disorder, unspecified
CPT/HCPCS: 83036; 96127; 99214

== ENCOUNTER 2023-07-25 08:41 | Outpatient (AMB) | payer MEDICARE, SELFPAY ==
--- NOTE | 2023-07-25 08:49 | MHC.OFFVISCO ---
Intake Intake Visit Reasons: Anticoagulation Allergies hydralazine [Hydralazine] Allergy (Unknown, Verified 07/25/23 08:43) SEVERE HEADACHE Medication List - Last Reconciled 07/25/23 by Cynthia Wood RN amlodipine 10 mg PO DAILY 90 days betamethasone valerate 0.1% 1 appl topical BID PRN 14 days blood sugar diagnostic As directed blood sugar diagnostic (OneTouch Ultra Test strips) 1 strip miscellaneous BID 1 month bumetanide 1 mg PO Q OTHER DAY bupropion HCl 75 mg PO ONCE 30 days calcium polycarbophil (FiberCon) 625 mg PO DAILY 30 days carboxymethylcellulose sodium 1% (Artificial Tears (carboxymethylcellulose)) 1 drp ophthalmic (eye) QID diclofenac sodium 1% (Voltaren Arthritis Pain) 4 grams topical QID PRN 30 days glipizide ER 2.5 mg PO DAILY 90 days lancets (CelatonTouch UltraSoft Lancets) As directed to test blood sugar twice a day. Ninety day supply lancets (CelatonTouch UltraSoft 2 Lancet) As directed levothyroxine 125 mcg PO DAILY lisinopril 5 mg PO DAILY 90 days meclizine 25 mg PO BID PRN pravastatin 40 mg PO DAILY warfarin 4 mg See Protocol PO DAILY Nursing Note INR: 2.9- in therapeutic range of 2-3 Medications and supplements reviewed- bupoprion- no interaction with warfarin per micromedex No changes in health, diet, medications, or supplements, Denies any signs and symptoms of bleeding or bruising or clotting. 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
[2023-07-25 08:50] LABS: Prothrombin Time Whole Bld POC 34.2 sec (11.1-13.5); ~PT, ~INR - Anti Coag Clinic 2.9 (0.9-1.1)
== END 2023-07-25 08:56 | disposition home or self-care (01) ==
LOC: HO.ACS 08:41
PROVIDERS: PCP Family Medicine; Visit Provider Internal Medicine
DX: Z79.01 Long term (current) use of anticoagulants (principal)

== ENCOUNTER → 2023-07-25 08:41 | Outpatient (BNVA) | payer MEDICARE, SELFPAY | PROVIDERS: PCP Family Medicine; Visit Provider Internal Medicine | DX: I48.0 Paroxysmal atrial fibrillation (principal); Z79.01 Long term (current) use of anticoagulants; Z51.81 Encounter for therapeutic drug level monitoring | CPT/HCPCS: 85610; 99211 ==

== ENCOUNTER 2023-08-15 07:05 | Outpatient (REF) | payer MEDICARE, SELFPAY ==
[2023-08-15 07:40] LABS: MANUAL DIFF FLAG NO
[2023-08-15 07:54] LABS: Basophils Percent Auto 0.4 % (0-2); Eosinophils Absolute Auto 0.3 X10*3/uL (0.0-0.4); Eosinophils Percent Auto 3.7 % (0-4); Hematocrit 39.1 % (42.0-52.0); Hemoglobin 13.3 g/dl (14.0-18.0); Imm Gran Abs Auto 0.02 X10*3/uL (0.00-0.03); Imm Gran Pct Auto 0.2 % (0.0-0.4); Lymphocytes Absolute Auto 1.3 X10*3/uL (1.2-4.9); Lymphocytes Percent Auto 16.1 % (20-40); Mean Corpuscular Hemoglobin 35.6 pg (27.0-33.0); Mean Corpuscular Volume 104.5 fL (80.0-98.0); Mean Platelet Volume 11.3 fL (9.4-12.4); Monocytes Absolute Auto 0.6 X10*3/uL (0.1-1.2); Monocytes Percent Auto 7.7 % (2-11); Neutrophils Percent Auto 71.9 % (45-73); Platelet Count 169 X10*3/uL (160-400); Red Blood Count 3.74 X10*6/uL (4.60-5.80); Red Cell Distribution Width 13.1 % (11.0-16.0); White Blood Count 8.3 X10*3/uL (4.8-10.8)
[2023-08-15 08:20] LABS: Alanine Aminotransferase 22 U/L (0-40); Albumin Level 4.2 g/dL (3.5-5.0); Alkaline Phosphatase 94 U/L (39-117); Anion Gap 11 (12-20); Aspartate Amino Transferase 28 U/L (5-37); Bilirubin Total 0.6 mg/dL (0.0-1.0); Blood Urea Nitrogen 30 mg/dL (9-16); Carbon Dioxide 27 mmol/L (22-29); Chloride 109 mmol/L (96-108); Cholesterol 140 mg/dL (<200); Estimated Glomerular Filt Rate 45; Glucose Fasting 115 mg/dL (60-99); HDL Cholesterol 38 mg/dL (>40); LDL Cholesterol Calculated 84 mg/dL (<100); Sodium 143 mmol/L (135-145); Total Protein 7.2 g/dL (6.5-8.0); Triglycerides 90 mg/dL (<150)
[2023-08-15 08:21] LABS: Appearance Urine Clear; Color Urine Yellow; Glucose Urine UA Negative (Negative); Leukocyte Esterase Urine Negative (Negative); Nitrite Urine Negative (Negative); PH 5.5 (5.0-9.0); UMIC TRIGGER UA YES; Urine Blood Trace (Negative); Urine Ketones Negative (Negative); Urine Protein Negative (Neg-Trace)
[2023-08-15 08:55] LABS: Prostate Specific Antigen Scr 1.22 ng/mL (<0.05-4.0)
[2023-08-15 09:00] LABS: Bacteria Urine None Seen (None Seen); Hyaline Casts Urine 0-2 /LPF (0-2); RBC Urine 0-2 /HPF (0-2); Squamous Epithelial Cell Urine 0-2 /HPF (0-2); WBC Urine 0-5 /HPF (0-5)
== END 2023-08-15 07:06 | disposition home or self-care (01) ==
LOC: HO.LAB 07:05
PROVIDERS: PCP Family Medicine; Visit Provider Internal Medicine Nephrology
DX: Z00.00 Encounter for general adult medical examination without abnormal findings (principal); Z12.5 Encounter for screening for malignant neoplasm of prostate; I10 Essential (primary) hypertension
CPT/HCPCS: 36415; 80053; 80061; 81001; 82043; 82570; 84153; 85025

== ENCOUNTER 2023-08-22 08:56 | Outpatient (AMB) | payer MEDICARE, SELFPAY ==
[2023-08-22 09:01] LABS: Prothrombin Time Whole Bld POC 43.3 sec (11.1-13.5); ~PT, ~INR - Anti Coag Clinic 3.6 (0.9-1.1)
--- NOTE | 2023-08-22 09:10 | MHC.OFFVISCO ---
Intake Intake Visit Reasons: Anticoagulation Allergies hydralazine [Hydralazine] Allergy (Unknown, Verified 08/22/23 08:56) SEVERE HEADACHE Nursing Note PT. HAS NOTED GLANDULAR SWELLING SINCE YESTERDAY. HE HAS HAD SOME DIFFICULTY SWALLOWING EARLIER THIS MORNING, AND WILL SEE PCP AFTER ACS VISIT TODAY. HE IS AFEBRILE AND DENIES ANY CP OR SX OF BLEEDING. SWALLOWING OK NOW BUT PAINFUL. PT.HAS HAD LARGE AMTS OF CRANBERRY JUICE THIS WEEK, AND AGREES TO SIGNIF. REDUCE INTAKE OF CRANBERRY PRODUCTS. HOLD WARFARIN TODAY THEN RESUME USUAL DOSE AND FOLLOW-UP IN 2 WEEKS. GOOD UNDERSTANDING OF DOSING INSTR. 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
== END 2023-08-22 09:14 | disposition home or self-care (01) ==
LOC: HO.ACS 08:56
PROVIDERS: PCP Family Medicine; Visit Provider Internal Medicine
DX: Z79.01 Long term (current) use of anticoagulants (principal)

== ENCOUNTER 2023-08-22 09:41 | Outpatient (AMB) | payer MEDICARE, SELFPAY ==
[2023-08-22 09:52] VITALS: BP 124/70; PULSE 78; O2SAT 98; BMI 29.3
--- NOTE | 2023-08-22 09:52 | HO.NEPHOV ---
HPI HPI Comments History of Present Illness Details I had the pleasure of was seeing [place] in follow-up of his chronic kidney disease and hypertension. He has diabetes over 20 years. His blood sugar control is quite good. He has prostate issues and is followed up by Dr. Francis. He has had coronary artery disease but has no chest pain, shortness of breath, proximal nocturnal dyspnea, orthopnea or pedal edema. He denies any peripheral arterial symptoms. He has no history of CVA. He is hypertensive over 2 decades and his blood pressure is well controlled on current medication regimen. He avoids nonsteroidal anti-inflammatory medications and maintain good hydration. He had been having acute right side neck swelling and had difficulty swallowing .His Amlodipine dose has been cut back. There were no other new complaints at the time of this office visit. [facility] Medical History Chest pain RUQ pain Wheezing Elevated diaphragm Pulmonary nodules Aortic stenosis Edema CAD (coronary artery disease) Diabetes type 2, controlled Elevated prostate specific antigen between 10 and 19 ng/ml Atrial fibrillation Walden's disease Elevated morning serum cortisol level Surgical History History of cardiac cath Hx of tonsillectomy Hx of colonoscopy Family History Father Colon cancer Mother HTN (hypertension) Type 2 diabetes mellitus Brother No problems noted. Sister No problems noted. Son No problems noted. Son No problems noted. Son No problems noted. Daughter No problems noted. Daughter No problems noted. Social History Housing: Apartment Alcohol intake: former Year quit: 1979 Patient Tobacco Use Status: Former Tobacco user Quit Date: 1979 Years Smoked: 45+ e-Cigarette/Vaping Use: Never Used Second Hand Smoke Exposure: No service: Yes ([employer] [id number]) Current occupational status: retired Current occupational exposures/hazards: No Cognitive needs: No Hearing needs: Yes Vision needs: No Vital Signs 08/22/23 09:52 Height 5 ft 6 in Weight 181 lb 4 oz BMI 29.3 BP 124/70 Blood Pressure Location Lt brachial Position Sitting Pulse 78 Pulse Source Pulse Oximeter Pulse Oximetry (%) 98 Oxygen Delivery Method Room Air Physical Exam Const General: comfortable and no acute distress Orientation/consciousness: patient oriented x3 HEENT Head: Yes normocephalic Mouth: Normal oral and palatal mucosa present Eyes EOM: EOMs intact bilaterally Neck Neck: Yes supple Resp Auscultation: clear to auscultation bilaterally Cardio Jugular venous distension: no JVD Rate: regular rate GI Palpation (GI): Soft to palpation Auscultation: normal bowel sounds General: Yes no CVA tenderness Back/Spine/Pelvis Back: no CVA tenderness Skin General skin exam: no rashes or lesions noted Neuro General: patient oriented x3 and moves all extremities Extrem General: Yes no pedal edema Assessment & Plan Assessment & Plan (1) Hypertension: Code(s): I10 - Essential (primary) hypertension Qualifiers: Hypertension type: primary hypertension Qualified Code(s): I10 - Essential (primary) hypertension (2) CKD (chronic kidney disease) stage 3, GFR 30-59 ml/min: Code(s): N18.30 - Chronic kidney disease, stage 3 unspecified Qualifiers: Chronic kidney disease stage 3 subtype: stage 3a (GFR 45-59) Qualified Code(s): N18.31 - Chronic kidney disease, stage 3a Plan [place] has chronic kidney disease likely due to vascular disease. He has longstanding diabetes and hypertension. He is on RICK-inhibitor along with other antihypertensive medications. His blood sugar and blood pressure control is quite good. He is on statins. Her volume status was optimal. He avoids nonsteroidal anti-inflammatory medications and maintain good hydration. He is followed by cardiology. He can continue on his current medication regimen. I did not make any medication changes today. Follow-up lab work were ordered. All questions answered. Follow-up given Orders: Orders Creatinine Today I10 - Essential (primary) hypertension, N18.31 - Chronic kidney disease, stage 3a Calcium Today I10 - Essential (primary) hypertension, N18.31 - Chronic kidney disease, stage 3a Blood Urea Nitrogen Today I10 - Essential (primary) hypertension, N18.31 - Chronic kidney disease, stage 3a Electrolytes Today I10 - Essential (primary) hypertension, N18.31 - Chronic kidney disease, stage 3a Coding Level of Care Code Est Pt Level 4 (43646) Diagnoses Primary hypertension I10 Hypertension type: primary hypertension Stage 3a chronic 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 Chronic kidney disease stage 3 subtype: stage 3a (GFR 45-59) Results Reviewed Nephrology Results: Hgb 13.3 g/dl (14.0-18.0) L 08/15/23 WBC 8.3 X10*3/uL (4.8-10.8) 08/15/23 Plt Count 169 X10*3/uL (160-400) 08/15/23 Sodium 143 mmol/L (135-145) 08/15/23 Potassium 4.0 mmol/L (3.3-5.1) 08/15/23 Chloride 109 mmol/L (96-108) H 08/15/23 Carbon Dioxide 27 mmol/L (22-29) 08/15/23 BUN 30 mg/dL (9-16) H 08/15/23 Creatinine 1.47 mg/dL (0.5-1.4) H 08/15/23 Calcium 10.0 mg/dL (8.4-10.2) 08/15/23 Urine Protein Negative mg/dL (Neg-Trace) 08/15/23 Urine Creatinine 16.00 mg/dL 08/15/23 Protein/Creatinin Ratio TNP 06/23/23
== END 2023-08-22 10:15 | disposition home or self-care (01) ==
PROVIDERS: PCP Family Medicine; Visit Provider Internal Medicine Nephrology
DX: I10 Essential (primary) hypertension (principal); N18.31 Chronic kidney disease, stage 3a
CPT/HCPCS: 99214

== ENCOUNTER 2023-08-22 10:25 | Emergency (ER) | payer MEDICARE, SELFPAY ==
--- NOTE | ~2023-08-22 | CT_ITS ---
EXAMINATION: CT SOFT TISSUE NECK WITH CONTRAST CLINICAL INFORMATION: Right-sided neck swelling COMPARISON: None available. TECHNIQUE: Following the intravenous administration of 60 mL of Omnipaque 350 intravenous contrast, helical imaging was performed in the axial plane with generation of coronal and sagittal reformatted images. This CT examination was performed using dose optimization techniques as appropriate, variously including the following: *Automated exposure control *Adjustment of mA and/or kV according to patient size (this includes techniques or standardized protocols for targeted exams where dose is matched to indication/reason for exam; i.e. extremities or head) *Use of iterative reconstruction technique DLP: 418 mGy-cm FINDINGS: The right submandibular gland is enlarged and demonstrates increased enhancement compared to the left submandibular gland. This demonstrates edematous changes. There is surrounding stranding of the subcutaneous fat and thickening of the right side of the platysma muscle. Findings are suggestive of sialoadenitis. No stone or mass is seen. Remainder of the salivary glands are normal. The naso, fabian-and hypopharynx and larynx are normal. The thyroid gland is normal. No enlarged lymph nodes. There is bilateral carotid calcification. The paranasal sinuses, mastoid air cells and middle ears are clear. Visualized intracranial structures are normal. The orbits are normal. There are degenerative changes of the spine. CT/CT soft tissue neck w IV con IMPRESSION: Sialadenitis of the right submandibular gland
[2023-08-22 10:42] VITALS: BP 162/70; PULSE 70; RESP 18; TEMP 36.7; O2SAT 99; BMI 28.6
[2023-08-22 11:40] LABS: IDNOW Serial# 08D9AD1C; Strep A Nucleic Acid Negative (Negative)
[2023-08-22 15:38] VITALS: BP 163/69; PULSE 74; RESP 16; TEMP 36.6; O2SAT 99
--- NOTE | 2023-08-22 15:42 | ED_ITS ---
HPI - General Adult General Chief complaint: Upper Respiratory Symptoms Stated complaint: sent over, swollen glands ? Time Seen by Provider: 08/22/23 15:41 Source: patient and RN notes reviewed Mode of arrival: ambulatory Limitations: no limitations History of Present Illness HPI narrative: This is a 88-year-old male, with a history of CKD, diabetes type 2, atrial fibrillation on Coumadin, Brohman's disease, aortic stenosis, who presents emergency department with complaints of right-sided neck pain and swelling x3 days. Patient states that 3 days ago he thought that some of the oatmeal with reasons he had consumed may have becomes stuck in his throat. He states that he has had ongoing sore throat, especially with swallowing. He has noticed increased swelling in the right side of his neck. He states he is able to eat and drink without difficulty however is concerned as the swelling has become more extensive. He does endorse some night sweats, no recent weight loss. He was a smoker 40 years ago. He denies any known fevers, chills, chest pain, shortness of breath, congestion, abdominal pain, nausea, vomiting or diarrhea. Denies taking any medications at home to treat his current symptoms. No other complaints or concerns at this time. MD complaint: Neck swelling Onset (ago): day(s) Location: neck Radiation: non-radiation Severity: moderate Quality: aching Pain Consistency: constant Relieving factors: none Exacerbating factors: none Associated symptoms: denies other symptoms Treatments prior to arrival: none Related Data Home Medications ?Medication ?Instructions ?Recorded ?Confirmed blood sugar diagnostic #10 ea 02/24/20 07/17/23 lancets 30 gauge (OneTouch #100 ea 06/07/23 07/17/23 UltraSoft 2 Lancet) amlodipine 5 mg tablet 2.5 mg PO DAILY 08/22/23 Previous Rx's ?Medication ?Instructions ?Recorded lancets (OneTouch UltraSoft #200 ea 08/23/22 Lancets) blood sugar diagnostic (OneTouch 1 strip miscellaneous BID for 10/04/22 Ultra Test strips) diabetes mellitus 1 month #200 ea meclizine 25 mg tablet 25 mg PO BID PRN dizziness #14 tabs 10/09/22 lisinopril 5 mg tablet 5 mg PO DAILY 90 days #90 tabs 01/23/23 glipizide 2.5 mg tablet, extended 2.5 mg PO DAILY 90 days #90 tabs 04/23/23 release 24 hr levothyroxine 125 mcg tablet 125 mcg PO DAILY #30 tabs 06/18/23 pravastatin 40 mg tablet 40 mg PO DAILY #90 tabs 06/28/23 warfarin 2 mg tablet 4 mg PO DAILY #60 tabs 06/28/23 bupropion HCl 75 mg tablet 75 mg PO ONCE 30 days #30 tabs 07/17/23 bumetanide 1 mg tablet 1 mg PO Q OTHER DAY 90 days #45 08/02/23 tabs Allergies Allergy/AdvReac Type Severity Reaction Status Date / Time hydralazine [Hydralazine] Allergy Unknown SEVERE Verified 08/22/23 10:46 HEADACHE Review of Systems 2 Review of Systems: Yes all other systems are reviewed and are negative Constitutional: Constitutional: Reports as per [facility] Past Medical History Attestation statement: The following information was validated with the patient. Medical History Chest pain RUQ pain Wheezing Elevated diaphragm Pulmonary nodules Aortic stenosis Edema CAD (coronary artery disease) Diabetes type 2, controlled Elevated prostate specific antigen between 10 and 19 ng/ml Atrial fibrillation Brohman's disease Elevated morning serum cortisol level Surgical History History of cardiac cath Hx of tonsillectomy Hx of colonoscopy Family History Family History Father Colon cancer Mother HTN (hypertension) Type 2 diabetes mellitus Brother No problems noted. Sister No problems noted. Son No problems noted. Son No problems noted. Son No problems noted. Daughter No problems noted. Daughter No problems noted. Social History Social History Housing: Apartment Alcohol intake: former Year quit: 1979 Patient Tobacco Use Status: Former Tobacco user Quit Date: 1979 Years Smoked: 45+ e-Cigarette/Vaping Use: Never Used Second Hand Smoke Exposure: No Advance Directives: Yes Advance Directives Information Provided: No Advance Directives on File: No service: Yes ([employer] [id number]) Current occupational status: retired Current occupational exposures/hazards: No Cognitive needs: No Hearing needs: Yes Vision needs: No Physical Exam ED Vital Signs: Vital Signs - 24 hr 08/22/23 10:42 08/22/23 15:38 08/22/23 18:16 Temperature 98.0 F 97.8 F 97.7 F Pulse Rate 70 74 73 Respiratory Rate 18 16 18 Blood Pressure 162/70 H 163/69 H 133/70 Pulse Oximetry 99 99 97 Oxygen Delivery Method Room Air Room Air Room Air BMI result Body Mass Index 28.6 Const General: cooperative, comfortable and no acute distress Orientation/consciousness: patient oriented x3 Limitations: no limitations HENMT Head: Yes normal to inspection, Yes normocephalic and Yes atraumatic Ears: hearing grossly normal bilaterally General nose exam: Normal external nose present Face and sinus: Yes normal facial exam Mouth: Normal oral and palatal mucosa present, oropharynx normal and moist mucous membranes Throat: Yes posterior oropharynx normal Eyes General: appearance normal, both eyes and all related structures Eyelids: Yes eyelids normal Conjunctivae: conjunctivae normal Sclerae: sclerae normal Pupils: Equal, round and reactive pupils present EOM: EOMs intact bilaterally Neck Other: Right submandibular region there is a hard, indurated mass approximately 4 x 3 cm. Mildly tender. No fluctuance. Nonmobile. Neck: Yes normal visual inspection, Yes full ROM and Yes no lymphadenopathy Lymphatic: no lymphadenopathy noted Chest Chest palpation & inspection: normal inspection of the chest Resp Effort & Inspection: normal respiratory effort and able to speak in complete sentences Auscultation: clear to auscultation bilaterally, no crackles, no rales, no rhonchi and no wheezes Cardio Rate: regular rate Rhythm: regular rhythm Heart sounds: S1 normal heart sound present and S2 normal heart sound present GI Inspection: Yes normal to inspection Skin General skin exam: no rashes or lesions noted Trauma: no lacerations or abrasions Wounds: no wounds Neuro General: patient oriented x3 and moves all extremities Cranial nerves: Yes Equal, round and reactive pupils present Extrem General: Yes normal to inspection Right upper extremity: normal to inspection Left upper extremity: normal to inspection Right lower extremity: normal to inspection Left lower extremity: normal to inspection Course Reevaluation(s) Reevaluation #1: CT of the neck still pending, labs with no leukocytosis, stable H&H, chemistry nondiagnostic. Sign-out given to my colleague, Babak Veliz pending neck CT. Time: 19:00 Reevaluation #2: CT scan revealing Sialadenitis of the right submandibular gland, patient given sour candy and emergency room. Educated on return precautions. Patient discharged, he is speaking in full sentences, nontoxic appearing, patient stable for discharge. Time: 20:15 Medications Administered Discontinued Medications Generic Name Dose Route Start Last Admin Trade Name Freq PRN Reason Stop Dose Admin Iohexol 100 ml 08/22/23 19:12 08/22/23 19:12 Iohexol 350 Mg/Ml 100 Ml Infus..Btl IV 08/22/23 19:13 60 ml ONCE ONE Administration Medical Decision Making Medical Decision Making [facility] Narrative: 88-year-old male, with a history of CKD, diabetes type 2, atrial fibrillation on Coumadin, Brohman's disease, aortic stenosis, who presents emergency department with complaints of right-sided neck pain and swelling x3 days. On arrival, patient mildly hypertensive at 162/70. Patient has been in the emergency room for approximately 6 hours before my assessment. During my assessment, patient normotensive at 133/70, he is afebrile, nontoxic-appearing, under no acute respiratory distress. He is speaking full sentences. Examination, patient has a large, anterior cervical indurated mass, nonmobile. With no overlying skin changes. Differential diagnoses include malignancy, mass, abscess, cyst, cellulitis-unlikely. Patient does endorse slight night sweats for several days however no other constitutional symptoms to suggest malignancy. He was a smoker many years ago. Plan: Labs, strep swab, CT neck Differential Diagnosis Differential Diagnoses: The differential diagnosis associated with the presentation includes See above Admission/Observation Consideration of admission/observation: Escalation of care including admission/observation considered Lab Data [facility] Lab Attestation statement: I reviewed the patient's lab results. Slight leukocytosis at 11.7, macrocytic anemia noted with a H&H of 13.5/39.1 chemistry nondiagnostic. 08/22/23 18:09 08/22/23 18:09 Labs: Lab Results 08/22/23 08/22/23 Range/Units 11:05 18:09 WBC 11.7 H (4.8-10.8) X10*3/uL RBC 3.73 L (4.60-5.80) X10*6/uL Hgb 13.5 L (14.0-18.0) g/dl Hct 39.1 L (42.0-52.0) % MCV 104.8 H (80.0-98.0) fL MCH 36.2 H (27.0-33.0) pg MCHC 34.5 (31.0-36.0) g/dl RDW 13.3 (11.0-16.0) % Plt Count 188 (160-400) X10*3/uL MPV 11.3 (9.4-12.4) fL Immature Gran % (Auto) 0.3 (0.0-0.4) % Neut % (Auto) 78.4 H (45-73) % Lymph % (Auto) 12.2 L (20-40) % Sully % (Auto) 7.7 (2-11) % Eos % (Auto) 1.1 (0-4) % Baso % (Auto) 0.3 (0-2) % Lymph # (Auto) 1.4 (1.2-4.9) X10*3/uL Sully # (Auto) 0.9 (0.1-1.2) X10*3/uL Eos # (Auto) 0.1 (0.0-0.4) X10*3/uL Baso # (Auto) 0.0 (0.0-0.2) X10*3/uL Abs Immat Gran (auto) 0.03 (0.00-0.03) X10*3/uL Absolute Neuts (auto) 9.2 H (2.0-8.3) x10*3/uL Absolute Nucleated RBC 0.000 (0.0-0.012) X10*3/uL Nucleated RBC % (auto) 0.0 (0.0-0.2) /100WBC Sodium 144 (135-145) mmol/L Potassium 3.4 (3.3-5.1) mmol/L Chloride 115 H (96-108) mmol/L Carbon Dioxide 23 (22-29) mmol/L Anion Gap 9 L (12-20) BUN 29 H (9-16) mg/dL Creatinine 0.97 (0.5-1.4) mg/dL Estim Creat Clear Calc 52.4 Estimated GFR > 60 Random Glucose 81 (60-115) mg/dL Calcium 8.6 D (8.4-10.2) mg/dL Total Bilirubin 1.0 (0.0-1.0) mg/dL Direct Bilirubin 0.4 (0.0-0.5) mg/dL AST 19 (5-37) U/L ALT 18 (0-40) U/L Alkaline Phosphatase 79 (39-117) U/L Total Protein 6.6 (6.5-8.0) g/dL Albumin 4.0 (3.5-5.0) g/dL S. pyogenes GrpA KATIA Negative (Negative) Radiology Impression Discussion of test interpretation with radiology: I have reviewed the radiologist's reading. Radiologist Impression: FINDINGS: The right submandibular gland is enlarged and demonstrates increased enhancement compared to the left submandibular gland. This demonstrates edematous changes. There is surrounding stranding of the subcutaneous fat and thickening of the right side of the platysma muscle. Findings are suggestive of sialoadenitis. No stone or mass is seen. Remainder of the salivary glands are normal. The naso, fabian-and hypopharynx and larynx are normal. The thyroid gland is normal. No enlarged lymph nodes. There is bilateral carotid calcification. The paranasal sinuses, mastoid air cells and middle ears are clear. Visualized intracranial structures are normal. The orbits are normal. There are degenerative changes of the spine. CT/CT soft tissue neck w IV con IMPRESSION: Sialadenitis of the right submandibular gland Dictated By: Delia Monroe MD Discharge Plan Discharge Clinical Impression: Sialadenitis Patient Disposition: Home, Self-Care Instructions: Sialoadenitis (ED) Additional Instructions: You were seen in the emergency department due to right sided neck swelling. You have something called Sialadenitis, which is inflammation of your salivary ducts, often caused by obstruction or hyposecretion of your saliva. Suck on sour candies, lemon drops, ros, as this will help produce more saliva. If any new or worsening symptoms occur including but not limited to worsening swelling, pain, fevers, chills, please return for re-evaluation. Drink plenty of fluids. Prescriptions: No Action (DME) lancets [OneTouch UltraSoft Lancets] Misc See Rx Instructions .Route Qty: 200 4RF Rx Instructions: As directed to test blood sugar twice a day. Ninety day supply OneTouch Ultra Test Strip 1 strip miscellaneous BID 30 Days Qty: 200 5RF meclizine 25 mg tablet 25 mg PO BID PRN (Reason: dizziness) Qty: 14 0RF glipizide 2.5 mg tablet extended release 24hr 2.5 mg PO DAILY 90 Days Qty: 90 2RF levothyroxine 125 mcg tablet 125 mcg PO DAILY Qty: 30 2RF warfarin 2 mg tablet 4 mg PO DAILY Qty: 60 12RF Protocol: Dose Management Condition: Sunday (Week One) Dose/Route: 4 mg Instruction: 2 x 2 mg tablets Condition: Sunday Dose/Route: 4 mg Instruction: 2 x 2 mg tablets Condition: Sunday Dose/Route: 4 mg Instruction: 2 x 2 mg tablets Condition: Sunday Dose/Route: 0 mg Instruction: 0 tablets Condition: Dose/Route: 4 mg Instruction: 2 x 2 mg tablets Condition: Sunday Dose/Route: 4 mg Instruction: 2 x 2 mg tablets Condition: Sunday Dose/Route: 4 mg Instruction: 2 x 2 mg tablets Condition: Sunday (Week Two) Dose/Route: 4 mg Instruction: 2 x 2 mg tablets Condition: Sunday Dose/Route: 4 mg Instruction: 2 x 2 mg tablets Condition: Sunday Dose/Route: 4 mg Instruction: 2 x 2 mg tablets Condition: Sunday Dose/Route: 4 mg Instruction: 2 x 2 mg tablets Condition: Dose/Route: 4 mg Instruction: 2 x 2 mg tablets Condition: Sunday Dose/Route: 4 mg Instruction: 2 x 2 mg tablets Condition: Sunday Dose/Route: 4 mg Instruction: 2 x 2 mg tablets Protocol Text: Adjustment Start Date: Sunday08/22/23 INR Value: 3.6 INR Date: 08/22/23 Recheck Date: 09/05/23 pravastatin 40 mg tablet 40 mg PO DAILY Qty: 90 0RF bumetanide 1 mg tablet 1 mg PO Q OTHER DAY 90 Days Qty: 45 3RF Rx Instructions: Pt is on 1 tab every other day. (DME) OneTouch Ultra Blue Test Strip Strip See Rx Instructions .ROUTE BID Qty: 10 Rx Instructions: As directed lisinopril 5 mg tablet 5 mg PO DAILY 90 Days Qty: 90 2RF bupropion HCl 75 mg tablet 75 mg PO ONCE 30 Days Qty: 30 1RF (DME) lancets [OneTouch UltraSoft 2 Lancet] 30 gauge misc See Rx Instructions .ROUTE .MEDSUPPLY Qty: 100 Rx Instructions: As directed amlodipine 5 mg tablet 2.5 mg PO DAILY Interventions: ED Discharge Assessment Last Done: 08/22/23 20:42 Discharge Date/Time: 08/22/23 20:43 Print Language: Nauruan
[2023-08-22 18:15] LABS: MANUAL DIFF FLAG NO
[2023-08-22 18:16] VITALS: BP 133/70; PULSE 73; RESP 18; TEMP 36.5; O2SAT 97
[2023-08-22 18:18] LABS: Basophils Percent Auto 0.3 % (0-2); Eosinophils Absolute Auto 0.1 X10*3/uL (0.0-0.4); Eosinophils Percent Auto 1.1 % (0-4); Hematocrit 39.1 % (42.0-52.0); Hemoglobin 13.5 g/dl (14.0-18.0); Imm Gran Abs Auto 0.03 X10*3/uL (0.00-0.03); Imm Gran Pct Auto 0.3 % (0.0-0.4); Lymphocytes Absolute Auto 1.4 X10*3/uL (1.2-4.9); Lymphocytes Percent Auto 12.2 % (20-40); Mean Corpuscular HGB Conc 34.5 g/dl (31.0-36.0); Mean Corpuscular Hemoglobin 36.2 pg (27.0-33.0); Mean Corpuscular Volume 104.8 fL (80.0-98.0); Mean Platelet Volume 11.3 fL (9.4-12.4); Monocytes Absolute Auto 0.9 X10*3/uL (0.1-1.2); Monocytes Percent Auto 7.7 % (2-11); Neutrophils Absolute Auto 9.2 x10*3/uL (2.0-8.3); Neutrophils Percent Auto 78.4 % (45-73); Platelet Count 188 X10*3/uL (160-400); Red Blood Count 3.73 X10*6/uL (4.60-5.80); Red Cell Distribution Width 13.3 % (11.0-16.0); White Blood Count 11.7 X10*3/uL (4.8-10.8)
[2023-08-22 18:34] LABS: Alanine Aminotransferase 18 U/L (0-40); Alkaline Phosphatase 79 U/L (39-117); Anion Gap 9 (12-20); Aspartate Amino Transferase 19 U/L (5-37); Bilirubin Direct 0.4 mg/dL (0.0-0.5); Blood Urea Nitrogen 29 mg/dL (9-16); Calcium 8.6 mg/dL (8.4-10.2); Carbon Dioxide 23 mmol/L (22-29); Chloride 115 mmol/L (96-108); Creatinine Clr Calc Pharmacy 52.4; Estimated Glomerular Filt Rate > 60; Glucose Random 81 mg/dL (60-115); Potassium 3.4 mmol/L (3.3-5.1); Sodium 144 mmol/L (135-145); Total Protein 6.6 g/dL (6.5-8.0)
[2023-08-22] MEDS: iohexoL 350 MG/ML 100 ML INFUS..BTL IV (19:12)
[2023-08-22 20:26] VITALS: BP 148/67; PULSE 72; RESP 18; TEMP 36.1; O2SAT 94
[2023-08-22 20:42] VITALS: BP 148/67; PULSE 72; RESP 18; TEMP 36.1; O2SAT 94
== END 2023-08-22 20:43 | disposition home or self-care (01) ==
PROVIDERS: Physician Assistant Medical; Emergency Provider Emergency Medicine; PCP Family Medicine
DX: M54.2 Cervicalgia (principal); K11.20 Sialoadenitis, unspecified; Z79.899 Other long term (current) drug therapy; Z51.81 Encounter for therapeutic drug level monitoring
CPT/HCPCS: 36415; 70491; 80048; 80076; 85025; 85610; 87651; 99211; 99212; 99284; Q9967

== ENCOUNTER 2023-09-05 08:39 | Outpatient (AMB) | payer MEDICARE, SELFPAY ==
--- NOTE | 2023-09-05 08:48 | MHC.OFFVISCO ---
Intake Intake Visit Reasons: Anticoagulation Allergies hydralazine [Hydralazine] Allergy (Unknown, Verified 09/05/23 08:42) SEVERE HEADACHE Medication List - Last Reconciled 09/05/23 by Cynthia Wood RN amlodipine 10 mg PO DAILY blood sugar diagnostic As directed blood sugar diagnostic (OneTouch Ultra Test strips) 1 strip miscellaneous BID 1 month bumetanide 1 mg PO Q OTHER DAY 90 days bupropion HCl 75 mg PO ONCE 30 days glipizide ER 2.5 mg PO DAILY 90 days lancets (OneTouch UltraSoft Lancets) As directed to test blood sugar twice a day. Ninety day supply lancets (OneTouch UltraSoft 2 Lancet) As directed levothyroxine 125 mcg PO DAILY lisinopril 5 mg PO DAILY 90 days meclizine 25 mg PO BID PRN pravastatin 40 mg PO DAILY warfarin 4 mg See Protocol PO DAILY Nursing Note INR: 2.8- in therapeutic range of 2-3 Medications and supplements reviewed- pt states no changes requested updated med list No changes in health, diet, medications, or supplements, Denies any signs and symptoms of bleeding or bruising or clotting. Bleeding, bruising, clotting discussed Nutritional guidance given Dose: 4mg x 7 F/U INR: 3 weeks Patient verbalizes understanding of instructions given Anti-Coag Initial Assessment Social Hx Patient Tobacco Use Status: Former Tobacco user Quit Date: 1979 alcohol intake: former Alcohol intake frequency: does not drink Coding Level of Care Code Est Patient Level 1 Diagnoses Current use of anticoagulant therapy Z79.01 Results AMB INR Fingerstick AMB INR Fingerstick 2.8 Last Edit by Cynthia Wood RN on 09/05/23 08:49 Assessment & Plan Assessment & Plan (1) Current use of anticoagulant therapy: Code(s): Z79.01 - retirement (current) use of 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
[2023-09-05 08:49] LABS: Prothrombin Time Whole Bld POC 33.2 sec (11.1-13.5); ~PT, ~INR - Anti Coag Clinic 2.8 (0.9-1.1)
== END 2023-09-05 08:54 | disposition home or self-care (01) ==
LOC: HO.ACS 08:39
PROVIDERS: PCP Family Medicine; Visit Provider Internal Medicine
DX: Z79.01 Long term (current) use of anticoagulants (principal)

== ENCOUNTER → 2023-09-05 08:39 | Outpatient (BNVA) | payer MEDICARE, SELFPAY | PROVIDERS: PCP Family Medicine; Visit Provider Internal Medicine | DX: I48.0 Paroxysmal atrial fibrillation (principal); Z51.81 Encounter for therapeutic drug level monitoring; Z79.01 Long term (current) use of anticoagulants | CPT/HCPCS: 85610; 99211 ==

== ENCOUNTER 2023-09-25 08:37 | Outpatient (REF) | payer MEDICARE, SELFPAY ==
[2023-09-25 09:26] LABS: Prothrombin Time 78.6 SEC (11.1-13.3)
[2023-09-25 09:28] LABS: INTERNATIONAL NORM RATIO 6.4 (0.9-1.1)
== END 2023-09-25 08:38 | disposition home or self-care (01) ==
LOC: HO.LAB 08:37
PROVIDERS: PCP Family Medicine; Visit Provider Internal Medicine
DX: I48.0 Paroxysmal atrial fibrillation (principal); Z51.81 Encounter for therapeutic drug level monitoring; Z79.01 Long term (current) use of anticoagulants
CPT/HCPCS: 36415; 85610; 99212

== ENCOUNTER 2023-09-25 08:37 | Outpatient (AMB) | payer MEDICARE, SELFPAY ==
[2023-09-25 08:53] LABS: Prothrombin Time Whole Bld POC 81.7 sec (11.1-13.5); ~PT, ~INR - Anti Coag Clinic 6.8 (0.9-1.1)
--- NOTE | 2023-09-25 09:57 | MHC.OFFVISCO ---
Intake Intake Visit Reasons: Anticoagulation Allergies hydralazine [Hydralazine] Allergy (Unknown, Verified 09/25/23 08:48) SEVERE HEADACHE Medication List - Last Reconciled 09/25/23 by Elisa Cadena RN amlodipine 10 mg PO DAILY blood sugar diagnostic As directed blood sugar diagnostic (OneTouch Ultra Test strips) 1 strip miscellaneous BID 1 month bumetanide 1 mg PO Q OTHER DAY 90 days bupropion HCl 75 mg PO ONCE 30 days glipizide ER 2.5 mg PO DAILY 90 days lancets (OneTouch UltraSoft Lancets) As directed to test blood sugar twice a day. Ninety day supply lancets (OneTouch UltraSoft 2 Lancet) As directed levothyroxine 125 mcg PO DAILY lisinopril 5 mg PO DAILY 90 days meclizine 25 mg PO BID PRN pravastatin 40 mg PO DAILY warfarin 4 mg See Protocol PO DAILY Nursing Note Amb to ACS feeling well Medications and supplements reviewed, pt taking garlic supplement, sts he has been on for several years No changes in health, diet, medications, or supplements, Denies any unusual signs and symptoms of bleeding, bruising, or clotting. INR 6.8 critical high- pt sent to lab for stat INR= 6.4 reviewed diet with pt, pt has been drinking large glass of gingerale daily, possibly some cranberry juice, indicates he has been eating more garlic than usual also indicates may not have been eating usual greens such as broccoli Bleeding and bruising discussed, instructed regarding any bleeding or falls needs to go to ED, pt indicated he has an appointment at [place] tomorrow to have toenails cut- strongly encouraged to cancel that appointment and R/S when bleed risk is lower Pt to hold warfarin tonight and tomorrow night Pt instructed to have spinach to help bring down critically high INR- sts he will get a can of spinach, encouraged to divide into 4 servings and have serving 2 times today and tomorrow, avoid gingerale and cranberry F/U INR: September 26 Patient verbalizes understanding of instructions given TC to Dr Muniz office- Spoke with Dominga CARLTON INRs given, dosing plan, F/U and other pertinant info given Anti-Coag Initial Assessment Social Hx Patient Tobacco Use Status: Former Tobacco user Quit Date: 1979 alcohol intake: former Alcohol intake frequency: does not drink Coding Level of Care Code Est Patient Level 2 Diagnoses Current use of anticoagulant therapy Z79.01 Time Spent (min) 30 Assessment & Plan Assessment & Plan (1) Current use of anticoagulant therapy: Comment: critical high INR Code(s): Z79.01 - long term acute care registered nurse (current) use of 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 Orders: Orders Prothrombin Time INR Today Z79.01 - long term acute care registered nurse (current) use of anticoagulants
== END 2023-09-25 11:42 | disposition home or self-care (01) ==
LOC: HO.ACS 08:37
PROVIDERS: PCP Family Medicine; Visit Provider Internal Medicine
DX: Z79.01 Long term (current) use of anticoagulants (principal)

== ENCOUNTER 2023-09-27 08:56 | Outpatient (AMB) | payer MEDICARE, SELFPAY ==
[2023-09-27 09:11] LABS: Prothrombin Time Whole Bld POC 29.6 sec (11.1-13.5); ~PT, ~INR - Anti Coag Clinic 2.5 (0.9-1.1)
--- NOTE | 2023-09-27 09:15 | MHC.OFFVISCO ---
Intake Intake Visit Reasons: Anticoagulation Allergies hydralazine [Hydralazine] Allergy (Unknown, Verified 09/27/23 09:05) SEVERE HEADACHE Medication List - Last Reconciled 09/27/23 by Elisa Kline, RN amlodipine 10 mg PO DAILY blood sugar diagnostic As directed blood sugar diagnostic (OneTouch Ultra Test strips) 1 strip miscellaneous BID 1 month bumetanide 1 mg PO Q OTHER DAY 90 days bupropion HCl 75 mg PO ONCE 30 days glipizide ER 2.5 mg PO DAILY 90 days lancets (OneTouch UltraSoft Lancets) As directed to test blood sugar twice a day. Ninety day supply lancets (OneTouch UltraSoft 2 Lancet) As directed levothyroxine 125 mcg PO DAILY lisinopril 5 mg PO DAILY 90 days meclizine 25 mg PO BID PRN pravastatin 40 mg PO DAILY warfarin 4 mg See Protocol PO DAILY Nursing Note INR: 2.5 in therapeutic range of 2-3 Medications and supplements reviewed: no changes No changes in health, diet, medications, or supplements, Denies any signs and symptoms of bleeding or bruising or clotting. Bleeding, bruising, clotting discussed Nutritional guidance given to balance reds and greens Dose: resume usual dose of 4mg daily except on Sunday take 2mg F/U INR: 1 week Patient verbalizes understanding of instructions given Anti-Coag Initial Assessment Social Hx Patient Tobacco Use Status: Former Tobacco user Quit Date: 1979 alcohol intake: former Alcohol intake frequency: does not drink Coding Level of Care Code Est Patient Level 1 Diagnoses Current use of anticoagulant therapy Z79.01 Assessment & Plan Assessment & Plan (1) Current use of anticoagulant therapy: Comment: critical high INR Code(s): Z79.01 - custodial (current) use of 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 Medications: New garlic PO
== END 2023-09-27 09:23 | disposition home or self-care (01) ==
LOC: HO.ACS 08:56
PROVIDERS: PCP Family Medicine; Visit Provider Internal Medicine
DX: Z79.01 Long term (current) use of anticoagulants (principal)

== ENCOUNTER → 2023-09-27 08:56 | Outpatient (BNVA) | payer MEDICARE, SELFPAY | PROVIDERS: PCP Family Medicine; Visit Provider Internal Medicine | DX: I48.0 Paroxysmal atrial fibrillation (principal); Z79.01 Long term (current) use of anticoagulants; Z51.81 Encounter for therapeutic drug level monitoring | CPT/HCPCS: 85610; 99211 ==

== ENCOUNTER 2023-10-04 08:02 | Outpatient (AMB) | payer MEDICARE, SELFPAY ==
[2023-10-04 08:42] LABS: Prothrombin Time Whole Bld POC 17.7 sec (11.1-13.5); ~PT, ~INR - Anti Coag Clinic 1.5 (0.9-1.1)
--- NOTE | 2023-10-04 08:42 | MHC.OFFVISCO ---
Intake Intake Visit Reasons: Anticoagulation Allergies hydralazine [Hydralazine] Allergy (Unknown, Verified 10/04/23 08:36) SEVERE HEADACHE Medication List - Last Reconciled 10/04/23 by Cynthia Wood RN amlodipine 10 mg PO DAILY blood sugar diagnostic As directed blood sugar diagnostic (OneTouch Ultra Test strips) 1 strip miscellaneous BID 1 month bumetanide 1 mg PO Q OTHER DAY 90 days bupropion HCl 75 mg PO ONCE 30 days garlic PO glipizide ER 2.5 mg PO DAILY 90 days lancets (OneTouch UltraSoft Lancets) As directed to test blood sugar twice a day. Ninety day supply lancets (OneTouch UltraSoft 2 Lancet) As directed levothyroxine 125 mcg PO DAILY lisinopril 5 mg PO DAILY 90 days meclizine 25 mg PO BID PRN pravastatin 40 mg PO DAILY warfarin 4 mg See Protocol PO DAILY Nursing Note INR 1.5-?? out of therapeutic range of 2-3 Medications and supplements reviewed Patient status: no c.o, may have missed a dose pt states took 4mg daily Medications or supplements: no changes Diet: same Denies any signs and symptoms of bleeding or clotting or unusual bruising Bleeding, bruising, clotting discussed Nutritional guidance given: no greens for 2-3 days, eat reds to raise Dose: 6mg today then cont 4mg daily F/U INR Date : sun10/08/23? Patient verbalizing understanding of instructions given. pcp dr bonds called with low inr, dosing and retest, spoke to loren at 0925 composed note to pcp Anti-Coag Initial Assessment Social Hx Patient Tobacco Use Status: Former Tobacco user Quit Date: 1979 alcohol intake: former Alcohol intake frequency: does not drink Coding Level of Care Code Est Patient Level 1 Diagnoses Current use of anticoagulant therapy Z79.01 Assessment & Plan Assessment & Plan (1) Current use of anticoagulant therapy: Comment: critical high INR Code(s): Z79.01 - termite inspector (current) use of 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
== END 2023-10-04 09:27 | disposition home or self-care (01) ==
LOC: HO.ACS 08:02
PROVIDERS: PCP Family Medicine; Visit Provider Internal Medicine
DX: Z79.01 Long term (current) use of anticoagulants (principal)

== ENCOUNTER → 2023-10-04 08:02 | Outpatient (BNVA) | payer MEDICARE, SELFPAY | PROVIDERS: PCP Family Medicine; Visit Provider Internal Medicine | DX: I48.0 Paroxysmal atrial fibrillation (principal); Z79.01 Long term (current) use of anticoagulants; Z51.81 Encounter for therapeutic drug level monitoring | CPT/HCPCS: 85610; 99211 ==

== ENCOUNTER 2023-10-08 08:03 | Outpatient (AMB) | payer MEDICARE, SELFPAY ==
[2023-10-08 08:45] LABS: Prothrombin Time Whole Bld POC 37.3 sec (11.1-13.5); ~PT, ~INR - Anti Coag Clinic 3.1 (0.9-1.1)
--- NOTE | 2023-10-08 08:48 | MHC.OFFVISCO ---
Intake Intake Visit Reasons: Anticoagulation Allergies hydralazine [Hydralazine] Allergy (Unknown, Verified 10/08/23 08:33) SEVERE HEADACHE Medication List - Last Reconciled 10/08/23 by Elisa Kline RN amlodipine 10 mg PO DAILY 90 days blood sugar diagnostic As directed blood sugar diagnostic ([employer] Ultra Test strips) 1 strip miscellaneous BID 1 month bumetanide 1 mg PO Q OTHER DAY 90 days bupropion HCl 75 mg PO ONCE 30 days garlic PO glipizide ER 2.5 mg PO DAILY 90 days lancets ([employer] StatsTouch UltraSoft Lancets) As directed to test blood sugar twice a day. Ninety day supply lancets ([employer]Touch UltraSoft 2 Lancet) As directed levothyroxine 125 mcg PO DAILY lisinopril 5 mg PO DAILY 90 days meclizine 25 mg PO BID PRN pravastatin 40 mg PO DAILY warfarin 4 mg See Protocol PO DAILY Nursing Note INR 3.1?out of therapeutic range of 2-3 Medications and supplements reviewed: no changes Patient status: well Diet: usual diet for pt Denies any signs and symptoms of bleeding or clotting or unusual bruising Bleeding, bruising, clotting discussed Nutritional guidance given: to review the food list and balance reds and greens New seasonal food list given to pt Dose: 4mg daily F/U INR Date : 2 weeks?? Patient verbalizing understanding of instructions given. Anti-Coag Initial Assessment Social Hx Patient Tobacco Use Status: Former Tobacco user Quit Date: 1979 alcohol intake: former Alcohol intake frequency: does not drink Coding Level of Care Code Est Patient Level 1 Diagnoses Current use of anticoagulant therapy Z79.01 Results AMB INR Fingerstick AMB INR Fingerstick 3.1 Last Edit by Elisa Kline RN on 10/08/23 08:41 interface delay Assessment & Plan Assessment & Plan (1) Current use of anticoagulant therapy: Comment: critical high INR Code(s): Z79.01 - watermelon inspector (current) use of 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
== END 2023-10-08 08:52 | disposition home or self-care (01) ==
LOC: HO.ACS 08:03
PROVIDERS: PCP Family Medicine; Visit Provider Internal Medicine
DX: Z79.01 Long term (current) use of anticoagulants (principal)

== ENCOUNTER 2023-10-08 08:03 | Outpatient (REF) | payer MEDICARE, SELFPAY ==
[2023-10-08 11:03] LABS: Anion Gap 13 (12-20); Blood Urea Nitrogen 27 mg/dL (9-16); Calcium 10.1 mg/dL (8.4-10.2); Carbon Dioxide 27 mmol/L (22-29); Chloride 107 mmol/L (96-108); Estimated Glomerular Filt Rate 39; Potassium 4.3 mmol/L (3.3-5.1); Sodium 143 mmol/L (135-145)
== END 2023-10-08 08:04 | disposition home or self-care (01) ==
LOC: HO.LAB 08:03
PROVIDERS: Absent Provider Internal Medicine Nephrology; PCP Family Medicine; Visit Provider Internal Medicine
DX: N18.31 Chronic kidney disease, stage 3a (principal); I10 Essential (primary) hypertension
CPT/HCPCS: 36415; 80051; 82310; 82565; 84520; 85610; 99211

== ENCOUNTER 2023-10-16 07:53 | Outpatient (AMB) | payer MEDICARE, SELFPAY ==
--- NOTE | 2023-10-16 08:10 | MHC.PC.OV ---
Vital Signs 10/16/23 08:19 Height 5 ft 6 in Weight 176 lb 8 oz BMI 28.5 BP 130/68 Blood Pressure Location Lt brachial Position Sitting Respiration 14 Pulse 96 Pulse Source Pulse Oximeter Temp 97.4 F Temp Source Temporal Artery Scan Pulse Oximetry (%) 98 Oxygen Delivery Method Room Air Intake Visit Reasons: f/u diabetes, hypertension Intake Note: Follow up diabetes and htn. Was in ER 08/22/23 with Sialadenitis and was not seen for ER follow up Allergies hydralazine [Hydralazine] Allergy (Unknown, Verified 10/16/23 08:11) SEVERE HEADACHE Medication List - Last Reconciled 10/16/23 by Patrick Muniz MD amlodipine 10 mg PO DAILY 90 days blood sugar diagnostic As directed blood sugar diagnostic ([employer]ouch Ultra Test strips) 1 strip miscellaneous BID 1 month bumetanide 1 mg PO Q OTHER DAY 90 days glipizide ER 2.5 mg PO DAILY 90 days lancets (Air[employer]ouch UltraSoft Lancets) As directed to test blood sugar twice a day. Ninety day supply lancets (AirPOSTouch UltraSoft 2 Lancet) As directed levothyroxine 125 mcg PO DAILY lisinopril 5 mg PO DAILY 90 days pravastatin 40 mg PO DAILY warfarin 4 mg See Protocol PO DAILY Tobacco use date assessed: 07/17/23 Fall risk assessment: 1 Fall in past year Last assessed Fall Risk: 10/16/23 Dental Screening Dental Screen Date: 07/17/23 HPI f/u diabetes, hypertension HPI Details 88 y/o male presents to f/u diabetes, hypertension. Hx of CAD. Blood pressure today is 130/68. He is on lisinopril 5mg and amlodipine 10mg daily. Last A1c 07/17/23 6.6%. A1c today 10/16/23 6.6%. Has complaints of L forearm tendonitis. [facility] Medical History Chest pain RUQ pain Wheezing Elevated diaphragm Pulmonary nodules Aortic stenosis Edema CAD (coronary artery disease) Diabetes type 2, controlled Elevated prostate specific antigen between 10 and 19 ng/ml Atrial fibrillation De Beque's disease Elevated morning serum cortisol level Surgical History History of cardiac cath Hx of tonsillectomy Hx of colonoscopy Family History Father Colon cancer Mother HTN (hypertension) Type 2 diabetes mellitus Brother No problems noted. Sister No problems noted. Son No problems noted. Son No problems noted. Son No problems noted. Daughter No problems noted. Daughter No problems noted. Social History Housing: Apartment Alcohol intake: former Year quit: 1979 Patient Tobacco Use Status: Former Tobacco user Years Smoked: 45+ e-Cigarette/Vaping Use: Never Used Second Hand Smoke Exposure: No service: Yes ([employer] [id number]) Current occupational status: retired Current occupational exposures/hazards: No Cognitive needs: No Hearing needs: Yes Vision needs: No Questionnaire Thrive Questionnaire Date Thrive assessed: 07/17/23 KOBE-7 AMB Questionnaire KOBE-7 Date KOBE - 7 assessed: 07/17/23 Source: Developed by Drs. Boston Abdi, Ermelinda Hutton, Nagi Berkowitz and colleagues, with an educational noni from [employer]. Review of Systems Const Denies chills, Denies fatigue, Denies fever(s), Denies headache(s) and Denies weakness ENT Denies dizziness and Denies headache(s) Card Denies dyspnea Resp Denies cough, Denies dyspnea, Denies wheezing and Denies other (shortness of breath) Musc Denies numbness and Denies tingling Neuro Denies dizziness, Denies headache(s), Denies numbness, Denies tingling and Denies weakness Psych Denies anxiety and Denies depression Endo Denies fatigue Aller/Immun Denies wheezing Physical exam (Primary Care) Vital Signs: Last Vital Signs Temp 97.4 F 10/16/23 08:19 Pulse 96 10/16/23 08:19 Resp 14 10/16/23 08:19 BP 130/68 10/16/23 08:19 Pulse Ox 98 10/16/23 08:19 Oxygen Delivery Method Room Air 10/16/23 08:19 BMI result Body Mass Index 28.5 Tobacco/Smoking Status: Tobacco use Status Tobacco use date assessed 07/17/23 10/16/23 08:17 Patient Tobacco Use Status Former Tobacco user 10/16/23 08:17 e-Cigarette/Vaping Use Never Used 10/16/23 08:17 Thrive Assessment: Date of Thrive Assessment Date Thrive assessed 07/17/23 10/16/23 08:17 Const General: well developed; No acute distress Nutritional Appearance: well nourished Orientation/consciousness: patient oriented x3 HENMT Head: Yes normocephalic and Yes atraumatic Eyes General: appearance normal, both eyes and all related structures Pupils: Equal, round and reactive pupils present EOM: EOMs intact bilaterally Resp Effort & Inspection: normal respiratory effort Auscultation: clear to auscultation bilaterally Cardio Rate: regular rate Rhythm: regular rhythm Heart sounds: S1 normal heart sound present, S2 normal heart sound present, no gallops, no murmurs and no rubs Neuro General: patient oriented x3 and gait normal Cranial nerves: Yes Equal, round and reactive pupils present Psych Affect: normal affect Results AMB Hemoglobin A1c AMB Hemoglobin A1c 6.6 % Last Edit by Ruth Stanton CMA on 10/16/23 08:30 Results Reviewed Results Reviewed: Laboratory Last Values Hgb A1c (Clinic) 6.6 % (4.0-6.0) H 10/16/23 08:28 Assessment and Plan Assessment & Plan (1) Diabetes type 2, controlled: Code(s): E11.9 - Type 2 diabetes mellitus without complications Plan: A1c?is?6%.??Goal?is?less?than?7.0% Good?control Continue?current?medication (2) Essential hypertension: Code(s): I10 - Essential (primary) hypertension Plan: Blood?pressure?is?130/68.??Fair?control.??Goal?is?less?than?130/80 Continue?current?medication?regimen (3) CAD (coronary artery disease): Comment: nonobstructive Code(s): I25.10 - Atherosclerotic heart disease of [place] coronary artery without angina pectoris Plan: Stable (4) Sialadenitis: Code(s): K11.20 - Sialoadenitis, unspecified Plan: Recent?sialadenitis Continue?good?hydration Nik/sour foods?to?produce?saliva?flow Heat/massage (5) Tendinitis of left forearm: Code(s): M77.8 - Other enthesopathies, not elsewhere classified Plan: Left?forearm?tendinitis Start?occupational?therapy Orders: Orders OT Evaluation and Treatment Today M77.8 - Other enthesopathies, not elsewhere classified Comprehensive Dawson. Panel Fast Today M77.8 - Other enthesopathies, not elsewhere classified, Z00.00 - Encounter for general adult medical examination without abnormal findings Lipid Panel Today M77.8 - Other enthesopathies, not elsewhere classified, Z00.00 - Encounter for general adult medical examination without abnormal findings UA and rflx microscopic Today M77.8 - Other enthesopathies, not elsewhere classified, Z00.00 - Encounter for general adult medical examination without abnormal findings AMB Hemoglobin A1c Today E11.69 - Type 2 diabetes mellitus with other specified complication, N52.1 - Erectile dysfunction due to diseases classified elsewhere Complete Blood Count Auto Diff Today M77.8 - Other enthesopathies, not elsewhere classified, Z00.00 - Encounter for general adult medical examination without abnormal findings Microalbumin, Random (w Creat) Today I10 - Essential (primary) hypertension, M77.8 - Other enthesopathies, not elsewhere classified Prostate Specific Antigen Scr Today M77.8 - Other enthesopathies, not elsewhere classified, Z12.5 - Encounter for screening for malignant neoplasm of prostate Free T4 (Free Thyroxine) Today E03.9 - Hypothyroidism, unspecified, M77.8 - Other enthesopathies, not elsewhere classified Triiodothyronine T3 Total Today E03.9 - Hypothyroidism, unspecified, M77.8 - Other enthesopathies, not elsewhere classified Thyroid Stimulating Hormone Today E03.9 - Hypothyroidism, unspecified, M77.8 - Other enthesopathies, not elsewhere classified Coding Level of Care Code Est Pt Level 4 (41546) Diagnoses Diabetes type 2, controlled E11.9 Essential hypertension I10 CAD (coronary artery disease) I25.10 Sialadenitis K11.20 Tendinitis of left forearm M77.8
[2023-10-16 08:19] VITALS: BP 130/68; PULSE 96; RESP 14; TEMP 36.3; O2SAT 98; BMI 28.5
== END 2023-10-16 08:55 | disposition home or self-care (01) ==
PROVIDERS: PCP Family Medicine; Visit Provider Family Medicine
DX: E11.69 Type 2 diabetes mellitus with other specified complication (principal); I10 Essential (primary) hypertension; I25.10 Atherosclerotic heart disease of native coronary artery without angina pectoris; K11.20 Sialoadenitis, unspecified; M77.8 Other enthesopathies, not elsewhere classified; N52.1 Erectile dysfunction due to diseases classified elsewhere
CPT/HCPCS: 83036; 99214

== ENCOUNTER → 2023-10-23 08:58 | Outpatient (BNVA) | payer MEDICARE, SELFPAY | PROVIDERS: PCP Family Medicine; Visit Provider Internal Medicine | DX: I48.0 Paroxysmal atrial fibrillation (principal); Z79.01 Long term (current) use of anticoagulants; Z51.81 Encounter for therapeutic drug level monitoring | CPT/HCPCS: 85610; 99211 ==

== ENCOUNTER 2023-11-01 08:04 | Outpatient (AMB) | payer MEDICARE, SELFPAY ==
--- NOTE | 2023-11-01 08:15 | MHC.OFFVISCO ---
Intake Intake Visit Reasons: Anticoagulation Allergies hydralazine [Hydralazine] Allergy (Unknown, Verified 11/01/23 08:08) SEVERE HEADACHE Medication List - Last Reconciled 11/01/23 by Cynthia Wood RN amlodipine 10 mg PO DAILY 90 days blood sugar diagnostic As directed blood sugar diagnostic (OneTouch Ultra Test strips) 1 strip miscellaneous BID 1 month bumetanide 1 mg PO Q OTHER DAY 90 days glipizide ER 2.5 mg PO DAILY 90 days lancets (Energy[employer]Touch UltraSoft Lancets) As directed to test blood sugar twice a day. Ninety day supply lancets (OneTouch UltraSoft 2 Lancet) As directed levothyroxine 125 mcg PO DAILY lisinopril 5 mg PO DAILY 90 days pravastatin 40 mg PO DAILY warfarin 4 mg See Protocol PO DAILY Nursing Note INR 3.9-?? out of therapeutic range of 2-3 Medications and supplements reviewed Patient status: unsure why inr is elev, some stress Medications or supplements: no new medications Diet: appetite good Denies any signs and symptoms of bleeding or clotting or unusual bruising Bleeding, bruising, clotting discussed Nutritional guidance given: eat greens to lower Dose: hold today, reduce weekly dosing 4mg x 6, 2mg x 1 F/U INR Date : 1 week Patient verbalizing understanding of instructions given. Anti-Coag Initial Assessment Social Hx Patient Tobacco Use Status: Former Tobacco user alcohol intake: former Alcohol intake frequency: does not drink Coding Level of Care Code Est Patient Level 1 Diagnoses Current use of anticoagulant therapy Z79.01 Results AMB INR Fingerstick AMB INR Fingerstick 3.9 Last Edit by Cynthia Wood RN on 11/01/23 08:19 Assessment & Plan Assessment & Plan (1) Current use of anticoagulant therapy: Comment: critical high INR Code(s): Z79.01 - prison (current) use of 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
[2023-11-01 09:38] LABS: Prothrombin Time Whole Bld POC 46.6 sec (11.1-13.5); ~PT, ~INR - Anti Coag Clinic 3.9 (0.9-1.1)
== END 2023-11-01 08:27 | disposition home or self-care (01) ==
LOC: HO.ACS 08:04
PROVIDERS: PCP Family Medicine; Visit Provider Internal Medicine
DX: Z79.01 Long term (current) use of anticoagulants (principal)

== ENCOUNTER → 2023-11-01 08:04 | Outpatient (BNVA) | payer MEDICARE, SELFPAY | PROVIDERS: PCP Family Medicine; Visit Provider Internal Medicine | DX: I48.0 Paroxysmal atrial fibrillation (principal); Z79.01 Long term (current) use of anticoagulants; Z51.81 Encounter for therapeutic drug level monitoring | CPT/HCPCS: 85610; 99211 ==

== ENCOUNTER 2023-11-05 13:40 | Outpatient (AMB) | payer MEDICARE, SELFPAY ==
[2023-11-05 13:52] VITALS: BP 130/62; PULSE 69; BMI 29.1
--- NOTE | 2023-11-05 13:52 | A.OFFVIS_ITS ---
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 Ninety day supply lancets (OneTouch UltraSoft 2 Lancet) As directed levothyroxine 125 mcg PO DAILY lisinopril 5 mg PO DAILY 90 days pravastatin 40 mg PO DAILY warfarin 4 mg See Protocol PO DAILY HPI Comments Details: Margie Kimble gentleman for follow-up. He was previously seen for atrial fibrillation and exertion chest discomfort. He underwent stress testing followed by cardiac catheterization which showed mild coronary artery disease. He is being managed for AFib with a rate control strategy. He was seen by visiting nurses and was thought to be in heart failure. He was started on Bumex. After discussion with him it appears it was started because he had lower extremity edema. He is denying any shortness of breath, orthopnea PND. He said his lower extremities were swollen which previously we felt were due to amlodipine use. On follow up, he has been doing well. No CP or SOB. Clinically stable. 04/02/23: He is here for follow-up. He has been doing well. He has cramp in his left calf at times at rest. With activity or walking around he does not get any pain. Overall clinically stable. Blood pressure control is good. 11/05/2023: He returns for follow-up. He continues to be active and has some chest pains and back pain which are musculoskeletal in origin. I have advised him to continue exercise. Taking medications regularly. Blood pressure is well controlled. He has permanent atrial fibrillation. [facility] Medical History Chest pain RUQ pain Wheezing Elevated diaphragm Pulmonary nodules Aortic stenosis Edema CAD (coronary artery disease) Diabetes type 2, controlled Elevated prostate specific antigen between 10 and 19 ng/ml Atrial fibrillation Jayy's disease Elevated morning serum cortisol level Surgical History History of cardiac cath Hx of tonsillectomy Hx of colonoscopy Family History Father Colon cancer Mother HTN (hypertension) Type 2 diabetes mellitus Brother No problems noted. Sister No problems noted. Son No problems noted. Son No problems noted. Son No problems noted. Daughter No problems noted. Daughter No problems noted. Social History Housing: Apartment Alcohol intake: former Year quit: 1979 Patient Tobacco Use Status: Former Tobacco user Years Smoked: 45+ e-Cigarette/Vaping Use: Never Used Second Hand Smoke Exposure: No service: Yes ([employer] 2362-1063) Current occupational status: retired Current occupational exposures/hazards: No Cognitive needs: No Hearing needs: Yes Vision needs: No Review of Systems Const Denies chills, Denies fatigue, Denies fever(s), Denies frequent falls, Denies weakness, Denies weight gain and Denies weight loss ENT Denies dizziness Card Denies chest pain, Denies leg edema, Denies lightheadedness, Denies palpitations, Denies dyspnea and Denies dyspnea on exertion Resp Denies cough, Denies dyspnea and Denies dyspnea on exertion GI Denies hematochezia Musc Denies abnormal gait, Denies muscle weakness, Denies numbness, Denies radiating pain into limb and Denies tingling Neuro Denies abnormal gait, Denies dizziness, Denies frequent falls, Denies numbness, Denies tingling and Denies weakness Endo Denies fatigue and Denies palpitations Physical Exam Vital Signs: Last Vital Signs Pulse 69 11/05/23 13:52 BP 130/62 11/05/23 13:52 BMI result Body Mass Index 29.1 GENERAL APPEARANCE: in no acute distress, pleasant. NECK: no carotid bruit, no jugular venous distention. SKIN: no suspicious lesions, warm and dry. HEART: no murmurs, irregular rate and rhythm. LUNGS: clear to auscultation bilaterally. ABDOMEN: soft, nontender. EXTREMITIES: No edema. PERIPHERAL PULSES: equal. NEUROLOGIC: No gross deficits, AAO X 3 Office Procedures EKG Details: Atrial fibrillation 69 beats per minute, right axis deviation, lateral infarct, anteroseptal infarct, QTC 435 milliseconds. [id number], Complete Assessment & Plan Assessment & Plan (1) Essential hypertension: Code(s): I10 - Essential (primary) hypertension Category: Medical (2) Atrial fibrillation: Code(s): I48.91 - Unspecified atrial fibrillation Category: Medical Plan Pleasant 88 gentleman with history of permanent atrial fibrillation, hypertension and peripheral edema. Heart rate is well controlled. Blood pressure control is good. He has peripheral edema due to amlodipine. He is taking Bumex every other day. Overall clinically stable. I think peripheral edema is not due to heart failure and is due to amlodipine. Taking Coumadin for anticoagulation. Continues to be active and has no exertional symptoms. He will see us back in 6 months. Thank you for allowing me to participate in the care of your patient. Please feel free to contact me if you have any questions. Coding Level of Care Code Est Pt Level 4 (98904) Diagnoses Essential hypertension I10 Atrial fibrillation I48.91 CPT Codes EKG - CPT: 10980-[id number], Complete ([id number])
== END 2023-11-05 14:19 | disposition home or self-care (01) ==
PROVIDERS: PCP Family Medicine; Visit Provider Internal Medicine Cardiovascular Disease
DX: I10 Essential (primary) hypertension (principal); I48.91 Unspecified atrial fibrillation
CPT/HCPCS: 93010; 99214

== ENCOUNTER → 2023-11-05 13:40 | Outpatient (BNVA) | payer MEDICARE, SELFPAY | PROVIDERS: PCP Family Medicine; Visit Provider Internal Medicine Cardiovascular Disease | DX: I48.21 Permanent atrial fibrillation (principal); I10 Essential (primary) hypertension | CPT/HCPCS: 93005; 99212 ==

== ENCOUNTER 2023-11-12 06:16 | Outpatient (REF) | payer MEDICARE, SELFPAY ==
[2023-11-12 06:31] LABS: MANUAL DIFF FLAG NO
[2023-11-12 07:41] LABS: Basophils Absolute Auto 0.1 X10*3/uL (0.0-0.2); Basophils Percent Auto 0.7 % (0-2); Eosinophils Absolute Auto 0.3 X10*3/uL (0.0-0.4); Eosinophils Percent Auto 3.8 % (0-4); Hematocrit 37.5 % (42.0-52.0); Hemoglobin 12.6 g/dl (14.0-18.0); Imm Gran Abs Auto 0.03 X10*3/uL (0.00-0.03); Imm Gran Pct Auto 0.4 % (0.0-0.4); Lymphocytes Absolute Auto 1.4 X10*3/uL (1.2-4.9); Lymphocytes Percent Auto 19.5 % (20-40); Mean Corpuscular HGB Conc 33.6 g/dl (31.0-36.0); Mean Corpuscular Hemoglobin 35.4 pg (27.0-33.0); Mean Corpuscular Volume 105.3 fL (80.0-98.0); Mean Platelet Volume 11.8 fL (9.4-12.4); Monocytes Absolute Auto 0.6 X10*3/uL (0.1-1.2); Neutrophils Percent Auto 67.6 % (45-73); Platelet Count 170 X10*3/uL (160-400); Red Blood Count 3.56 X10*6/uL (4.60-5.80); Red Cell Distribution Width 13.3 % (11.0-16.0); White Blood Count 7.4 X10*3/uL (4.8-10.8)
[2023-11-12 08:08] LABS: Alanine Aminotransferase 21 U/L (0-40); Albumin Level 4.1 g/dL (3.5-5.0); Alkaline Phosphatase 104 U/L (39-117); Anion Gap 14 (12-20); Aspartate Amino Transferase 22 U/L (5-37); Bilirubin Total 0.7 mg/dL (0.0-1.0); Blood Urea Nitrogen 33 mg/dL (9-16); Calcium 9.1 mg/dL (8.4-10.2); Carbon Dioxide 27 mmol/L (22-29); Chloride 105 mmol/L (96-108); Cholesterol 129 mg/dL (<200); Estimated Glomerular Filt Rate 38; Glucose Fasting 228 mg/dL (60-99); HDL Cholesterol 38 mg/dL (>40); LDL Cholesterol Calculated 78 mg/dL (<100); Potassium 3.7 mmol/L (3.3-5.1); Sodium 142 mmol/L (135-145); Total Protein 6.9 g/dL (6.5-8.0); Triglycerides 67 mg/dL (<150)
[2023-11-12 08:14] LABS: Free T4 (Free Thyroxine) 1.15 ng/dL (0.71-1.85)
[2023-11-12 08:24] LABS: Thyroid Stimulating Hormone 1.42 uIU/mL (0.32-4.0)
[2023-11-12 09:15] LABS: Appearance Urine Clear; Color Urine Yellow; Glucose Urine UA Negative (Negative); Leukocyte Esterase Urine Negative (Negative); Nitrite Urine Negative (Negative); PH 5.5 (5.0-9.0); Specific Gravity - Urine 1.025 (1.005-1.025); UMIC TRIGGER UA YES; Urine Blood Trace (Negative); Urine Ketones Negative (Negative); Urine Protein Trace mg/dL (Neg-Trace)
[2023-11-12 09:21] LABS: Bacteria Urine None Seen (None Seen); Hyaline Casts Urine 0-2 /LPF (0-2); Squamous Epithelial Cell Urine 0-2 /HPF (0-2); WBC Urine 0-5 /HPF (0-5)
[2023-11-12 09:34] LABS: Creatinine Urine 157.94 mg/dL
[2023-11-12 11:08] LABS: Prostate Specific Antigen Scr 1.38 ng/mL (<0.05-4.0)
[2023-11-13 16:58] LABS: Triiodothyronine T3 Total 80 ng/dL (76-181)
== END 2023-11-12 06:17 | disposition home or self-care (01) ==
LOC: HO.LAB 06:16
PROVIDERS: PCP Family Medicine; Visit Provider Internal Medicine Nephrology
DX: I48.0 Paroxysmal atrial fibrillation (principal); Z51.81 Encounter for therapeutic drug level monitoring; Z79.01 Long term (current) use of anticoagulants; Z00.00 Encounter for general adult medical examination without abnormal findings; M77.8 Other enthesopathies, not elsewhere classified; E03.9 Hypothyroidism, unspecified; I10 Essential (primary) hypertension; Z12.5 Encounter for screening for malignant neoplasm of prostate
CPT/HCPCS: 36415; 80053; 80061; 81001; 81003; 82043; 82570; 84153; 84439; 84443; 84480; 85025; 85610; 99211

== ENCOUNTER 2023-11-12 08:00 | Outpatient (AMB) | payer MEDICARE, SELFPAY ==
[2023-11-12 08:28] LABS: Prothrombin Time Whole Bld POC 43.5 sec (11.1-13.5); ~PT, ~INR - Anti Coag Clinic 3.6 (0.9-1.1)
--- NOTE | 2023-11-12 08:35 | MHC.OFFVISCO ---
Intake Intake Visit Reasons: Anticoagulation Allergies hydralazine [Hydralazine] Allergy (Unknown, Verified 11/12/23 08:22) SEVERE HEADACHE Medication List - Last Reconciled 11/12/23 by Elisa Jon RN amlodipine 10 mg PO DAILY 90 days blood sugar diagnostic As directed blood sugar diagnostic (HealintTouch Ultra Test strips) 1 strip miscellaneous BID 1 month bumetanide 1 mg PO Q OTHER DAY 90 days glipizide ER 2.5 mg PO DAILY 90 days lancets As directed to test blood sugar twice a day. Ninety day supply lancets (HealintTouch UltraSoft 2 Lancet) As directed levothyroxine 125 mcg PO DAILY lisinopril 5 mg PO DAILY 90 days pravastatin 40 mg PO DAILY warfarin 4 mg See Protocol PO DAILY Nursing Note INR 3.6 STILL? out of therapeutic range Medications and supplements reviewed Patient status: NO MED CHANGES - HAS RENAL AND UROLOGY UPCOMING APPTS Medications or supplements: NO CHANGES Diet: GOOD STATES HE HAS BEEN EATING GREENS Denies any signs and symptoms of bleeding or clotting or unusual bruising Bleeding, bruising, clotting discussed Nutritional guidance given: EAT A MIX OF FRUITS AND VEGETABLES Dose: DECREASE DOSE 2MG X 2 DAYS/ 4MG X 5 DAYS F/U INR Date: 2 WEEKS ?? Patient verbalizing understanding of instructions given. Anti-Coag Initial Assessment Social Hx Patient Tobacco Use Status: Former Tobacco user alcohol intake: former Alcohol intake frequency: does not drink Coding Level of Care Code Est Patient Level 1 Diagnoses Current use of anticoagulant therapy Z79.01 Results AMB INR Fingerstick AMB INR Fingerstick 3.6 Last Edit by Elisa Jon RN on 11/12/23 08:29 MANUAL ENTRY FAILED INTERFACING ONGOING Assessment & Plan Assessment & Plan (1) Current use of anticoagulant therapy: Comment: critical high INR Code(s): Z79.01 - terminal manager (current) use of 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
== END 2023-11-12 08:38 | disposition home or self-care (01) ==
LOC: HO.ACS 08:00
PROVIDERS: PCP Family Medicine; Visit Provider Internal Medicine
DX: Z79.01 Long term (current) use of anticoagulants (principal)

== ENCOUNTER 2023-11-22 07:42 | Outpatient (REF) | payer MEDICARE, SELFPAY ==
[2023-11-22 08:49] LABS: Anion Gap 13 (12-20); Blood Urea Nitrogen 30 mg/dL (9-16); Carbon Dioxide 26 mmol/L (22-29); Chloride 107 mmol/L (96-108); Estimated Glomerular Filt Rate 43; Potassium 4.1 mmol/L (3.3-5.1); Sodium 142 mmol/L (135-145)
[2023-11-22 09:37] LABS: Appearance Urine Clear; Color Urine Dark Yellow; Glucose Urine UA Negative (Negative); Leukocyte Esterase Urine Negative (Negative); Nitrite Urine Negative (Negative); UMIC TRIGGER UA YES; Urine Blood Trace (Negative); Urine Ketones Negative (Negative); Urine Protein Trace mg/dL (Neg-Trace)
[2023-11-22 09:42] LABS: Bacteria Urine None Seen (None Seen); Hyaline Casts Urine 0-2 /LPF (0-2); Squamous Epithelial Cell Urine 0-2 /HPF (0-2); WBC Urine 0-5 /HPF (0-5)
[2023-11-22 11:34] LABS: Prostate Specific Antigen 1.17 ng/mL (<0.05-4.0)
== END 2023-11-22 07:43 | disposition home or self-care (01) ==
LOC: HO.LAB 07:42
PROVIDERS: Internal Medicine Nephrology; Absent Provider Urology; PCP Family Medicine; Visit Provider Family Medicine
DX: I10 Essential (primary) hypertension (principal); N18.31 Chronic kidney disease, stage 3a; E11.69 Type 2 diabetes mellitus with other specified complication; N52.1 Erectile dysfunction due to diseases classified elsewhere; Z12.5 Encounter for screening for malignant neoplasm of prostate
CPT/HCPCS: 36415; 80051; 81001; 81003; 82565; 84153; 84520

== ENCOUNTER 2023-11-26 08:15 | Outpatient (AMB) | payer MEDICARE, SELFPAY ==
--- NOTE | 2023-11-26 08:39 | MHC.OFFVISCO ---
Intake Intake Visit Reasons: Anticoagulation Allergies hydralazine [Hydralazine] Allergy (Unknown, Verified 11/26/23 08:19) SEVERE HEADACHE Medication List - Last Reconciled 11/26/23 by Elisa Kline, RN amlodipine 10 mg PO DAILY 90 days blood sugar diagnostic As directed blood sugar diagnostic (OneTouch Ultra Test strips) 1 strip miscellaneous BID 1 month bumetanide 1 mg PO Q OTHER DAY 90 days glipizide ER 2.5 mg PO DAILY 90 days lancets One Touch Ultra Test Strips As directed to test blood sugar twice a day. Ninety day supply lancets (OneTouch UltraSoft 2 Lancet) As directed levothyroxine 125 mcg PO DAILY lisinopril 5 mg PO DAILY 90 days pravastatin 40 mg PO DAILY warfarin 4 mg See Protocol PO DAILY Nursing Note INR 4.0?out of therapeutic range of 2-3 Medications and supplements reviewed Patient status: usual state of health Medications or supplements: no changes Diet: reviewed diet and unable to determine why INR is high Denies any signs and symptoms of bleeding or clotting or unusual bruising Bleeding, bruising, clotting discussed. Pt understands his blood is thin Nutritional guidance given: to have a serving of greens today Dose: hold today's dose and then 4mg X 4 days and 2mg X 3 days (weekly dose decreased) F/U INR Date : 1 week?? Patient verbalizing understanding of instructions given. Anti-Coag Initial Assessment Social Hx Patient Tobacco Use Status: Former Tobacco user alcohol intake: former Alcohol intake frequency: does not drink Coding Level of Care Code Est Patient Level 1 Diagnoses Current use of anticoagulant therapy Z79.01 Assessment & Plan Assessment & Plan (1) Current use of anticoagulant therapy: Comment: critical high INR Code(s): Z79.01 - intermediate (current) use of 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
== END 2023-11-26 08:46 | disposition home or self-care (01) ==
LOC: HO.ACS 08:15
PROVIDERS: PCP Family Medicine; Visit Provider Internal Medicine
DX: Z79.01 Long term (current) use of anticoagulants (principal)

== ENCOUNTER → 2023-11-26 08:15 | Outpatient (BNVA) | payer MEDICARE, SELFPAY | PROVIDERS: PCP Family Medicine; Visit Provider Internal Medicine | DX: I48.0 Paroxysmal atrial fibrillation (principal); Z79.01 Long term (current) use of anticoagulants; Z51.81 Encounter for therapeutic drug level monitoring | CPT/HCPCS: 85610; 99211 ==

== ENCOUNTER 2023-11-29 08:30 | Outpatient (RCR) | payer MEDICARE, SELFPAY ==
--- NOTE | 2023-11-27 12:01 | MHC.OT.OEV ---
[address] [phone] F: [phone] Occupational Therapy Evaluation Patient Name: Boston Rivers Sr Diagnosis: (L)hand pain Date of Onset: 07/06/23 Date of Surgery: Attending Provider: Patrick Muniz Prescribed Treatment: MD Follow Up Appointment: History of Current Condition: Patient 88 y/o with significant PMHx. 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 He states he is (I) with ADLs/IADLs, living in alone in an elder apartment, he has 5 children 2 of which who live in the area. He states his pain began approximately 5 months ago with numbness/tingling at night. The tingling will radiate from wrist to fingers and he will wake with hand stiffness. 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 Living Situation, Family and/or Social Support: Lives alone in elder apartment Has 5 adult children, 2 live in the area Current Level of Function and Occupation Self Care, Employment, Leisure: min (A) ADLs/IADLs Difficulty with holding a golf club, hurts to turn door knob or caraballo Sleep: Wakes up in the middle of the night due to tingling in hand Driving: Vision: Balance: Pain Assessment Pain Score: 9 Pain Scale Used: Numeric (0 - 10) Pain Location and Description: (L)hand and travels to finger tips Aggravating Factors: Alleviating Factors: Has arthritis cream Skin and Soft Tissue Assessment Skin and Soft Tissue: Comments: Nerve assessment Ulnar Nerve: Median Nerve: Radial Nerve: Comments: Sensory Assessment Temperature: Light Touch: Proprioception: Vibration: Comments: Edema Assessment Upper Extremity: Lower Extremity: Comments: Observed swelling in the fingers Dexterity Assessment Dexterity: Right Impaired Comments: Functional Dexterity Test= (R)impaired (R)33.5 (L)27.8 Special Tests Comments: Phlene's Test (+) Tinel's (-) AROM(PROM) Strength Cervical Cervical Flexion: Cervical Extension: Cervical Lateral Flexion: Cervical Rotation: Comments: Shoulder Flexion: Extension: Abduction: Internal Rotation: External Rotation: Comments: WFL Flexion: Extension: Abduction: Internal Rotation: External Rotation: Comments: WFL Elbow Flexion: Extension: Pronation: Supination: Comments: WFL Flexion: Extension: Pronation: Supination: Comments: WFL Wrist Flexion: (L) 65 Extension: (L) 45 Ulnar Deviation: (L) 23 Radial Deviation: (L) 13 Comments: Flexion: Extension: Ulnar Deviation: Radial Deviation: Comments: WFL Thumb Thumb CMC Flexion: Thumb MCP Flexion: Thumb IP Flexion: Radial Abduction: Palmar Abduction: [place] (Kapandji 0-10): Comments: Digits Index MCP: PIP: DIP: Long MCP: PIP: DIP: Ring MCP: PIP: DIP: Small MCP: PIP: DIP: Comments: ROM limited due to pain Gross Grasp: 54lbs. (R), 67lbs. 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 Barriers to Learning: Readiness for Learning: Who was educated? Comments: Plan of Care Assessment: Patient is an 88 year old male with c/o (L)hand pain. Patient reports 9/10 pain in (L) hand with numbness/tingling at night and hand stiffness in the morning. He reports he is unable to hold a golf club or turn his house caraballo. Based on initial evaluation provocative testing revealed (+)Phalen's test, (-)Tinel's test. Patient achieved 65* flexion, 45* extension, 23* radial deviation, 13* ulnar deviation of (L)wrist AROM, (B)digits limited due to pain. Patient's strength is impaired as he achieved 55lbs.(R) and 67lbs.d (L) for cordwainer strength which is under for patient's age and gender. He achieved 33.2seconds on the Functional Dexterity test indicating impairment . Quick DASH= 75 indicating patient's perceived impairment of his UE during self care tasks. Patient's CLOF is min (A) self care tasks as he presents with impaired strength, impaired AROM, impaired coordination, pain and impaired performance during self care tasks. Due to the documented impairments it is recommended that patient receive skilled Occupational Therapy in order for patient to achieve his PLOF of (I) during self care tasks. Thank you for your referral. STG Duration: 2 weeks Short Term Goals: Patient will report 7/10 pain in (L)hand during self care tasks Patient will increase (L) cordwainer strength to 69lbs. Patient will be (I) with wear schedule of wrist splint LTG Duration: 4 weeks Cross Tie Turner Goals: Patient will report 0/10 pain in (L)hand Patient will be (I) with HEP Frequency and Duration: The patient will be seen 2x a week for 4 weeks Treatment Plan: Therapeutic Exercise Therapeutic Activity Home Exercise Program Splinting Patient Education Edema Control ADL Training Ultrasound Paraffin Fluidotherapy MHP Cold Packs Joint Mobilization Soft Tissue Mobilization Kinesiotaping OT eval and treat Electronically Signed By: CECILIA Naik/Lynn, CLBelkys Reviewed/agree with student documentation: Therapist: Please sign and return to therapist, Thank you for your referral.
--- NOTE | 2023-11-29 10:15 | MHC.OT.DC ---
[address] [phone] F: [phone] Occupational Therapy Discharge Note Patient Name: Boston Rivers Provider: Patrick Muniz Diagnosis: (L)hand pain Date of Surgery: Date of Evaluation: 11/27/23 Date of Discharge: Treatments to Date: 2 Cancellations to Date: No Shows to Date: Discharge Status: Patient Elected to Stop Discharge Summary: Upon arrival patient reported that he was going to cancel all of his appointments because a retired nurse told him he could them at home and then make more appointments if he needs them. Patient was unclear as to why he wanted to cancel them and his narrative appeared to be tangential. Patient was provided with lumbrical stretches and prayer stretch, handouts were issued. As he canceled all of his appointments patient will be discharged from skilled OT. Thank you for your referral. Electronically Signed By: Mami Oneill OTTrevor/Lynn, TATE Reviewed/agree with student documentation: Therapist: Please Sign and return to therapist, thank you for your referral.
== END 2023-11-29 10:16 | disposition home or self-care (01) ==
LOC: HO.OT 08:30
PROVIDERS: PCP Family Medicine; Visit Provider Family Medicine
DX: M77.8 Other enthesopathies, not elsewhere classified (principal)
CPT/HCPCS: 97110; 97165

== ENCOUNTER 2023-12-03 09:07 | Outpatient (AMB) | payer MEDICARE, SELFPAY ==
[2023-12-03 09:31] LABS: Prothrombin Time Whole Bld POC 26.5 sec (11.1-13.5); ~PT, ~INR - Anti Coag Clinic 2.2 (0.9-1.1)
--- NOTE | 2023-12-03 09:40 | MHC.OFFVISCO ---
Intake Intake Visit Reasons: Anticoagulation Allergies hydralazine [Hydralazine] Allergy (Unknown, Verified 12/03/23 09:23) SEVERE HEADACHE Medication List - Last Reconciled 12/03/23 by Elisa Jon RN amlodipine 10 mg PO DAILY 90 days blood sugar diagnostic As directed blood sugar diagnostic (OneTouch Ultra Test strips) 1 strip miscellaneous BID 1 month bumetanide 1 mg PO Q OTHER DAY 90 days glipizide ER 2.5 mg PO DAILY 90 days lancets One Touch Ultra Test Strips As directed to test blood sugar twice a day. Ninety day supply lancets (OneTouch UltraSoft 2 Lancet) As directed levothyroxine 125 mcg PO DAILY lisinopril 5 mg PO DAILY 90 days pravastatin 40 mg PO DAILY warfarin 4 mg See Protocol PO DAILY Nursing Note INR: 2.2 in therapeutic range Medications and supplements reviewed No changes in health, diet, medications, or supplements, Denies any signs and symptoms of bleeding or bruising or clotting. Bleeding, bruising, clotting discussed Nutritional guidance given Dose: 4MG X 4 DAYS/ 2MG X 3 DAYS F/U INR: 2 WEEKS Patient verbalizes understanding of instructions given Anti-Coag Initial Assessment Social Hx Patient Tobacco Use Status: Former Tobacco user alcohol intake: former Alcohol intake frequency: does not drink Coding Level of Care Code Est Patient Level 1 Diagnoses Current use of anticoagulant therapy Z79.01 Results AMB INR Fingerstick AMB INR Fingerstick 2.2 Last Edit by Elisa Jon RN on 12/03/23 09:35 manual entry no interfacing system failure ongoing Assessment & Plan Assessment & Plan (1) Current use of anticoagulant therapy: Comment: critical high INR Code(s): Z79.01 - longterm (current) use of 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
== END 2023-12-03 09:41 | disposition home or self-care (01) ==
LOC: HO.ACS 09:07
PROVIDERS: PCP Family Medicine; Visit Provider Internal Medicine
DX: Z79.01 Long term (current) use of anticoagulants (principal)

== ENCOUNTER → 2023-12-03 09:07 | Outpatient (BNVA) | payer MEDICARE, SELFPAY | PROVIDERS: PCP Family Medicine; Visit Provider Internal Medicine | DX: I48.0 Paroxysmal atrial fibrillation (principal); Z79.01 Long term (current) use of anticoagulants; Z51.81 Encounter for therapeutic drug level monitoring | CPT/HCPCS: 85610; 99211 ==

== ENCOUNTER 2023-12-06 08:40 | Outpatient (AMB) | payer MEDICARE, SELFPAY ==
--- NOTE | 2023-12-06 08:42 | MHC.OFFVIS ---
Intake Visit Reasons: 6M Follow Up- PSA/PVR(Set) Intake Note: Patient is Present for PVR/ Urology Med: None Antibiotic Allergy:None Blood Thinner:Warfarin Last visit with Dr Francis both Medications Tadalafil and Finasteride was discontinued. Patient reports that since he has been off he has been experiencing a lot of frequency and would like to go back on medications Todays PVR: 53ml Allergies hydralazine [Hydralazine] Allergy (Unknown, Verified 12/03/23 09:23) SEVERE HEADACHE HPI Comments Details: Boston Rivers is a very pleasant male. He is a patient of Dr Muniz and Dr Vuong at the OR. He is seen for the following urologic conditions. 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 Has lab work that is upper limit of normal for a number of these evaluations - subclinical [place]'s disease Elevated PSA/Abnormal NEO: Current management is medication with 5AR. Laboratory investigations include 10/22 , a total PSA evaluation 4.99 03/24 , a total PSA evaluation - reports as 3.5 09/22 3.0 09/23 1.4, 03/27 3.4, 09/25 FSH 56 T 273, 04/27 FSH 52, LH 22, T 177, PSA 1.3, 10/27 FSH 53 LH 42 E 32, 12/27 P 1.2, 11/27 P 1.4 Individualized Prostate Cancer Risk Calculator 5-10% high risk, Would like to continue with observation and understands and accepts the risks of a possible delay in diagnosis. Symptoms include / , nocturia, x 1, and are improving. Overall symptoms are mild. Erectile dysfunction Combination of daily and on demand [facility] Medical History Chest pain RUQ pain Wheezing Elevated diaphragm Pulmonary nodules Aortic stenosis Edema CAD (coronary artery disease) Diabetes type 2, controlled Elevated prostate specific antigen between 10 and 19 ng/ml Atrial fibrillation [place]'s disease Elevated morning serum cortisol level Surgical History History of cardiac cath Hx of tonsillectomy Hx of colonoscopy Family History Father Colon cancer Mother HTN (hypertension) Type 2 diabetes mellitus Brother No problems noted. Sister No problems noted. Son No problems noted. Son No problems noted. Son No problems noted. Daughter No problems noted. Daughter No problems noted. Social History Housing: Apartment Alcohol intake: former Year quit: 1979 Patient Tobacco Use Status: Former Tobacco user Years Smoked: 45+ e-Cigarette/Vaping Use: Never Used Second Hand Smoke Exposure: No service: Yes ([employer] [id number]) Current occupational status: retired Current occupational exposures/hazards: No Cognitive needs: No Hearing needs: Yes Vision needs: No Review of Systems Const Denies chills and Denies fever(s) Card Reports no additional complaints and Denies syncope Resp Denies cough GI Denies abdominal pain and Denies heartburn Reports as per HPI and Denies change in libido Neuro Denies syncope Psych Denies change in libido Endo Denies change in libido Physical Exam Const General: cooperative, healthy appearing, comfortable and no acute distress Orientation/consciousness: patient oriented x3 HEENT Face and sinus: Yes normal facial exam Mouth: moist mucous membranes Neck Neck: Yes normal visual inspection, Yes full ROM and Yes trachea midline Chest Chest palpation & inspection: normal inspection of the chest Resp Effort & Inspection: normal respiratory effort, able to speak in complete sentences and no respiratory distress GI Inspection: Yes normal to inspection Back/Spine/Pelvis Cervical Spine: normal cervical lordosis Thoracic/Lumbar Spine: thoracic and lumbar spine normal to inspection Skin General skin exam: no rashes or lesions noted Neuro General: patient oriented x3, gait normal, tone normal and moves all extremities Extrem General: Yes normal to inspection and Yes capillary refill normal Office Procedures Post Void Residual Post Residual Void Post Void Residual (PVR): 53 [id number] Void Residual by ultrasound Assessment & Plan Assessment & Plan (1) Urinary urgency: Code(s): R39.15 - Urgency of urination Category: Medical Plan Restart 5 mg daily tadalafil for bladder urgency 20 mg on demand tadalafil for erections Orders: Orders AMB Post Void Residual by ultrasound Today N13.8 - Other obstructive and reflux uropathy, N40.1 - Benign prostatic hyperplasia with lower urinary tract symptoms Medications: New tadalafil Daily for bladder urgency 5 mg PO DAILY 90 tabs 1RF 90 days R39.15 - Urgency of urination tadalafil On demand medication take 60 minutes before intended activity 20 mg PO ONCE PRN 30 tabs 0RF sexual activity 30 days E11.69 - Type 2 diabetes mellitus with other specified complication, N52.1 - Erectile dysfunction due to diseases classified elsewhere Patient Instructions: Imaging studies, laboratory and physical exam results were discussed and reviewed in detail. No major barriers to patient understanding were identified. An opportunity to ask questions regarding the treatment plan was provided. All questions were answered. The patient expressed understanding and agreement with the above treatment plan. The patient is aware they should contact our office by phone for worsening of their current condition or the appearance of new urologic symptoms. Compliance is encouraged with any medications and followup testing that is ordered. It is a privilege to participate in the urologic care of your patient. If you have any questions or concerns regarding treatment for the above conditions, or other urologic issues, please do not hesitate to contact me. The office telephone contact is [phone]. This note is constructed using voice recognition software. While every effort has been made to ensure accuracy sales operations assistant errors may have been included. Yours sincerely, Dr Dennis Francis MD, [facility] - Urology Providers of Expert, Compassionate Care for the Genitourinary System Coding Level of Care Code Est Pt Level 4 (43211) Diagnoses Urinary urgency R39.15 CPT Codes Post Residual Void - PVR CPT Code: 23458-Ezab Void Residual by ultrasound ([id number])
== END 2023-12-06 09:07 | disposition home or self-care (01) ==
PROVIDERS: PCP Family Medicine; Visit Provider Urology
DX: R39.15 Urgency of urination (principal)
CPT/HCPCS: 99214

== ENCOUNTER → 2023-12-06 08:40 | Outpatient (BNVA) | payer MEDICARE, SELFPAY | PROVIDERS: PCP Family Medicine; Visit Provider Urology | DX: R39.15 Urgency of urination (principal) | CPT/HCPCS: 51798; 99212 ==

== ENCOUNTER 2023-12-17 08:34 | Outpatient (AMB) | payer MEDICARE, SELFPAY ==
--- NOTE | 2023-12-17 08:40 | MHC.OFFVISCO ---
Intake Intake Visit Reasons: Anticoagulation Allergies hydralazine [Hydralazine] Allergy (Unknown, Verified 12/17/23 08:35) SEVERE HEADACHE Medication List - Last Reconciled 12/17/23 by Cynthia Wood RN amlodipine 10 mg PO DAILY 90 days blood sugar diagnostic As directed blood sugar diagnostic (OneTouch Ultra Test strips) 1 strip miscellaneous BID 1 month bumetanide 1 mg PO Q OTHER DAY 90 days glipizide ER 2.5 mg PO DAILY 90 days lancets One Touch Ultra Test Strips As directed to test blood sugar twice a day. Ninety day supply lancets (OneTouch UltraSoft 2 Lancet) As directed levothyroxine 125 mcg PO DAILY lisinopril 5 mg PO DAILY 90 days pravastatin 40 mg PO DAILY tadalafil 5 mg PO DAILY 90 days tadalafil 20 mg PO ONCE PRN 30 days warfarin 4 mg See Protocol PO DAILY Nursing Note INR 1.4-?? out of therapeutic range of 2-3 Medications and supplements reviewed Patient status: c. o weight gain, denies edema or sob Medications or supplements: no changes Diet: appetite is good Denies any signs and symptoms of bleeding or clotting or unusual bruising Bleeding, bruising, clotting discussed - aware at risk for clotting Nutritional guidance given: no greens for 3 days, eat a red today Dose: 4mg today, and sun F/U INR Date : pt req thur 12/20/23?? Patient verbalizing understanding of instructions given. pcp office called dr bonds to report low inr/dosing and f/u appt, spoke to tyrese nazario to pcp Anti-Coag Initial Assessment Social Hx Patient Tobacco Use Status: Former Tobacco user alcohol intake: former Alcohol intake frequency: does not drink Coding Level of Care Code Est Patient Level 1 Diagnoses Current use of anticoagulant therapy Z79.01 Assessment & Plan Assessment & Plan (1) Current use of anticoagulant therapy: Comment: critical high INR Code(s): Z79.01 - long-term (current) use of 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
[2023-12-17 08:41] LABS: Prothrombin Time Whole Bld POC 17.3 sec (11.1-13.5); ~PT, ~INR - Anti Coag Clinic 1.4 (0.9-1.1)
== END 2023-12-17 09:07 | disposition home or self-care (01) ==
LOC: HO.ACS 08:34
PROVIDERS: PCP Family Medicine; Visit Provider Internal Medicine
DX: Z79.01 Long term (current) use of anticoagulants (principal)

== ENCOUNTER → 2023-12-17 08:34 | Outpatient (BNVA) | payer MEDICARE, SELFPAY | PROVIDERS: PCP Family Medicine; Visit Provider Internal Medicine | DX: I48.0 Paroxysmal atrial fibrillation (principal); Z79.01 Long term (current) use of anticoagulants; Z51.81 Encounter for therapeutic drug level monitoring | CPT/HCPCS: 85610; 99211 ==

== ENCOUNTER 2023-12-18 06:24 | Outpatient (REF) | payer MEDICARE, SELFPAY ==
[2023-12-18 07:27] LABS: Appearance Urine Clear; Color Urine Yellow; Glucose Urine UA Negative (Negative); Leukocyte Esterase Urine Negative (Negative); Nitrite Urine Negative (Negative); UMIC TRIGGER UA YES; Urine Blood Negative (Negative); Urine Ketones Trace mg/dL (Negative); Urine Protein 30 (1+) mg/dL (Neg-Trace)
[2023-12-18 07:42] LABS: Bacteria Urine None Seen (None Seen); Hyaline Casts Urine 0-2 /LPF (0-2); Other Crystals Urine Present; RBC Urine 0-2 /HPF (0-2); Squamous Epithelial Cell Urine 0-2 /HPF (0-2); WBC Urine 0-5 /HPF (0-5)
== END 2023-12-18 06:25 | disposition home or self-care (01) ==
LOC: HO.LAB 06:24
PROVIDERS: PCP Family Medicine; Visit Provider Family Medicine
DX: Z00.00 Encounter for general adult medical examination without abnormal findings (principal)
CPT/HCPCS: 81001

== ENCOUNTER 2023-12-19 09:42 | Outpatient (AMB) | payer MEDICARE, SELFPAY ==
[2023-12-19 10:06] VITALS: BP 118/60; PULSE 71; O2SAT 97; BMI 28.4
--- NOTE | 2023-12-19 10:06 | HO.NEPHOV_ITS ---
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 He has diabetes over 20 years. His blood sugar control is quite good. He has prostate issues and is followed up by Dr. Francis. He has had coronary artery disease but has no chest pain, shortness of breath, proximal nocturnal dyspnea, orthopnea or pedal edema. He denies any peripheral arterial symptoms. He has no history of CVA. He is hypertensive over 2 decades and his blood pressure is well controlled on current medication regimen. He avoids nonsteroidal anti-inflammatory medications and maintain good hydration. There were no other new complaints at the time of this office visit. [facility] Medical History Chest pain RUQ pain Wheezing Elevated diaphragm Pulmonary nodules Aortic stenosis Edema CAD (coronary artery disease) Diabetes type 2, controlled Elevated prostate specific antigen between 10 and 19 ng/ml Atrial fibrillation Jayy's disease Elevated morning serum cortisol level Surgical History History of cardiac cath Hx of tonsillectomy Hx of colonoscopy Family History Father Colon cancer Mother HTN (hypertension) Type 2 diabetes mellitus Brother No problems noted. Sister No problems noted. Son No problems noted. Son No problems noted. Son No problems noted. Daughter No problems noted. Daughter No problems noted. Social History Housing: Apartment Alcohol intake: former Year quit: 1979 Patient Tobacco Use Status: Former Tobacco user Years Smoked: 45+ e-Cigarette/Vaping Use: Never Used Second Hand Smoke Exposure: No service: Yes ([employer] [id number]) Current occupational status: retired Current occupational exposures/hazards: No Cognitive needs: No Hearing needs: Yes Vision needs: No Review of Systems Const All systems reviewed & are unremarkable except as noted in HPI and below Physical Exam Vital Signs: Last Vital Signs Pulse 71 12/19/23 10:06 BP 118/60 12/19/23 10:06 Pulse Ox 97 12/19/23 10:06 Oxygen Delivery Method Room Air 12/19/23 10:06 BMI result Body Mass Index 28.4 Const General: comfortable and no acute distress Orientation/consciousness: patient oriented x3 HEENT Head: Yes normocephalic Mouth: Normal oral and palatal mucosa present Eyes EOM: EOMs intact bilaterally Neck Neck: Yes supple Resp Auscultation: clear to auscultation bilaterally Cardio Jugular venous distension: no JVD Rate: regular rate GI Palpation (GI): Soft to palpation Auscultation: normal bowel sounds General: Yes no CVA tenderness Back/Spine/Pelvis Back: no CVA tenderness Skin General skin exam: no rashes or lesions noted Neuro General: patient oriented x3 and moves all extremities Extrem General: Yes no pedal edema Results Reviewed Nephrology Results: Hgb 12.6 g/dl (14.0-18.0) L 11/12/23 WBC 7.4 X10*3/uL (4.8-10.8) 11/12/23 Plt Count 170 X10*3/uL (160-400) 11/12/23 Sodium 142 mmol/L (135-145) 11/22/23 Potassium 4.1 mmol/L (3.3-5.1) 11/22/23 Chloride 107 mmol/L (96-108) 11/22/23 Carbon Dioxide 26 mmol/L (22-29) 11/22/23 BUN 30 mg/dL (9-16) H 11/22/23 Creatinine 1.54 mg/dL (0.5-1.4) H 11/22/23 Calcium 9.1 mg/dL (8.4-10.2) 11/12/23 Urine Protein 30 (1+) mg/dL (Neg-Trace) H 12/18/23 Urine Creatinine 157.94 mg/dL 11/12/23 Assessment & Plan Assessment & Plan (1) CKD (chronic kidney disease) stage 3, GFR 30-59 ml/min: Code(s): N18.30 - Chronic kidney disease, stage 3 unspecified Category: Medical Qualifiers: Chronic kidney disease stage 3 subtype: stage 3a (GFR 45-59) Qualified Code(s): N18.31 - Chronic kidney disease, stage 3a (2) Hypertension: Code(s): I10 - Essential (primary) hypertension Category: Medical Qualifiers: Hypertension type: primary hypertension Qualified Code(s): I10 - Essential (primary) hypertension Plan [place] has chronic kidney disease likely due to vascular disease. He has longstanding diabetes and hypertension. He is on RICK-inhibitor along with other antihypertensive medications. His renal functions are stable. His blood sugar and blood pressure control is quite good. He is on statins. Her volume status was optimal. He avoids nonsteroidal anti-inflammatory medications and maintain good hydration. He is followed by cardiology. He can continue on his current medication regimen. I did not make any medication changes today. Follow-up lab work were ordered. All questions answered. Follow-up given Orders: Orders Blood Urea Nitrogen 4 Months I10 - Essential (primary) hypertension, N18.31 - Chronic kidney disease, stage 3a Electrolytes 4 Months I10 - Essential (primary) hypertension, N18.31 - Chronic kidney disease, stage 3a Creatinine 4 Months I10 - Essential (primary) hypertension, N18.31 - Chronic kidney disease, stage 3a Coding Level of Care Code Est Pt Level 4 (89958) Diagnoses Stage 3a chronic 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 Chronic kidney disease stage 3 subtype: stage 3a (GFR 45-59) Primary hypertension I10 Hypertension type: primary hypertension
== END 2023-12-19 10:34 | disposition home or self-care (01) ==
PROVIDERS: PCP Family Medicine; Visit Provider Internal Medicine Nephrology
DX: N18.31 Chronic kidney disease, stage 3a (principal); I10 Essential (primary) hypertension
CPT/HCPCS: 99214

== ENCOUNTER → 2023-12-19 09:42 | Outpatient (BNVA) | payer MEDICARE, SELFPAY | PROVIDERS: PCP Family Medicine; Visit Provider Internal Medicine Nephrology | DX: I12.9 Hypertensive chronic kidney disease with stage 1 through stage 4 chronic kidney disease, or unspecified chronic kidney disease (principal); E11.22 Type 2 diabetes mellitus with diabetic chronic kidney disease; N18.31 Chronic kidney disease, stage 3a | CPT/HCPCS: 99212 ==

== ENCOUNTER 2023-12-20 08:01 | Outpatient (AMB) | payer MEDICARE, SELFPAY ==
[2023-12-20 08:09] LABS: Prothrombin Time Whole Bld POC 22.5 sec (11.1-13.5); ~PT, ~INR - Anti Coag Clinic 1.9 (0.9-1.1)
--- NOTE | 2023-12-20 08:22 | MHC.OFFVISCO ---
Intake Intake Visit Reasons: Anticoagulation Allergies hydralazine [Hydralazine] Allergy (Unknown, Verified 12/20/23 08:04) SEVERE HEADACHE Medication List - Last Reconciled 12/20/23 by Elisa Kline, RN amlodipine 10 mg PO DAILY 90 days blood sugar diagnostic As directed blood sugar diagnostic (OneTouch Ultra Test strips) 1 strip miscellaneous BID 1 month bumetanide 1 mg PO Q OTHER DAY 90 days glipizide ER 2.5 mg PO DAILY 90 days lancets One Touch Ultra Test Strips As directed to test blood sugar twice a day. Ninety day supply lancets (OneTouch UltraSoft 2 Lancet) As directed levothyroxine 125 mcg PO DAILY lisinopril 5 mg PO DAILY 90 days pravastatin 40 mg PO DAILY tadalafil 5 mg PO DAILY 90 days tadalafil 20 mg PO ONCE PRN 30 days warfarin 4 mg See Protocol PO DAILY Nursing Note INR 1.9?out of therapeutic range pf 2-3 Improved from last visit 4 days ago when INR was 1.4. Pt states he has been having a serving a day of foods that raise the INR. Medications and supplements reviewed Patient status: feels well other than chronic arthritis discomfort. Medications or supplements: no changes Diet: usual diet for pt Denies any signs and symptoms of bleeding or clotting or unusual bruising Bleeding, bruising, clotting discussed Nutritional guidance given: to balance greens and reds Food list discussed Dose: Will increase tomorrow's dose to 4mg then usual dose of 4mg X 4 days and 2mg X 3 days F/U INR Date : 12/28/23?? Patient verbalizing understanding of instructions given. Anti-Coag Initial Assessment Social Hx Patient Tobacco Use Status: Former Tobacco user alcohol intake: former Alcohol intake frequency: does not drink Coding Level of Care Code Est Patient Level 1 Diagnoses Current use of anticoagulant therapy Z79.01 Assessment & Plan Assessment & Plan (1) Current use of anticoagulant therapy: Comment: critical high INR Code(s): Z79.01 - alf (current) use of 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
== END 2023-12-20 08:29 | disposition home or self-care (01) ==
LOC: HO.ACS 08:01
PROVIDERS: PCP Family Medicine; Visit Provider Internal Medicine
DX: Z79.01 Long term (current) use of anticoagulants (principal)

== ENCOUNTER → 2023-12-20 08:01 | Outpatient (BNVA) | payer MEDICARE, SELFPAY | PROVIDERS: PCP Family Medicine; Visit Provider Internal Medicine | DX: I48.0 Paroxysmal atrial fibrillation (principal); Z79.01 Long term (current) use of anticoagulants; Z51.81 Encounter for therapeutic drug level monitoring | CPT/HCPCS: 85610; 99211 ==

== ENCOUNTER 2023-12-28 07:58 | Outpatient (AMB) | payer MEDICARE, SELFPAY ==
--- NOTE | 2023-12-28 08:22 | MHC.OFFVISCO ---
Intake Intake Visit Reasons: Anticoagulation Allergies hydralazine [Hydralazine] Allergy (Unknown, Verified 12/28/23 08:02) SEVERE HEADACHE Medication List - Last Reconciled 12/28/23 by Elisa Kline RN amlodipine 10 mg PO DAILY 90 days blood sugar diagnostic As directed blood sugar diagnostic (OneTouch Ultra Test strips) 1 strip miscellaneous BID 1 month bumetanide 1 mg PO Q OTHER DAY 90 days glipizide ER 2.5 mg PO DAILY 90 days lancets One Touch Ultra Test Strips As directed to test blood sugar twice a day. Ninety day supply lancets (OneTouch UltraSoft 2 Lancet) As directed levothyroxine 125 mcg PO DAILY lisinopril 5 mg PO DAILY 90 days pravastatin 40 mg PO DAILY tadalafil 5 mg PO DAILY 90 days tadalafil 20 mg PO ONCE PRN 30 days warfarin 4 mg See Protocol PO DAILY Nursing Note Pt to [facility], feels weel but c/o aches and Pains d/t arthritis. INR: 4.2 out of therapeutic range 2-3 INR has been low ove past 2 weeks. Questioned pt regarding his dose and he said he follows the paper that [facility] gives him but there is a question if he is reading it correctly. The dose is from Sun to Sat and we write in the date next to each day for pt to follow. He understands this when asked but then asks a question about the dose so there is still a little confusion. Medications and supplements reviewed: no change per pt No changes in health, diet, medications, or supplements, Denies any signs and symptoms of bleeding or bruising or clotting. Bleeding, bruising, clotting discussed Nutritional guidance given Dose: hold today's dose then resume usual dose of 4mg X 4 days and 2mg X 3 days F/U INR: 1 week Patient verbalizes understanding of instructions given Anti-Coag Initial Assessment Social Hx Patient Tobacco Use Status: Former Tobacco user alcohol intake: former Alcohol intake frequency: does not drink Coding Level of Care Code Est Patient Level 1 Diagnoses Current use of anticoagulant therapy Z79.01 Results AMB INR Fingerstick AMB INR Fingerstick 4.2 Last Edit by Elisa Kline RN on 12/28/23 08:08 interface delay Assessment & Plan Assessment & Plan (1) Current use of anticoagulant therapy: Comment: critical high INR Code(s): Z79.01 - [facility] (current) use of 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
== END 2023-12-28 08:29 | disposition home or self-care (01) ==
LOC: HO.ACS 07:58
PROVIDERS: PCP Family Medicine; Visit Provider Internal Medicine
DX: Z79.01 Long term (current) use of anticoagulants (principal)

== ENCOUNTER → 2023-12-28 07:58 | Outpatient (BNVA) | payer MEDICARE, SELFPAY | PROVIDERS: PCP Family Medicine; Visit Provider Internal Medicine | DX: I48.0 Paroxysmal atrial fibrillation (principal); Z79.01 Long term (current) use of anticoagulants; Z51.81 Encounter for therapeutic drug level monitoring | CPT/HCPCS: 99211 ==

== ENCOUNTER 2024-01-04 08:03 | Outpatient (AMB) | payer MEDICARE, SELFPAY ==
[2024-01-04 08:19] LABS: Prothrombin Time Whole Bld POC 23.6 sec (11.1-13.5)
--- NOTE | 2024-01-04 08:22 | MHC.OFFVISCO ---
Intake Intake Visit Reasons: Anticoagulation Allergies hydralazine [Hydralazine] Allergy (Unknown, Verified 01/04/24 08:09) SEVERE HEADACHE Medication List - Last Reconciled 01/04/24 by Elisa Jon RN amlodipine 10 mg PO DAILY 90 days blood sugar diagnostic As directed blood sugar diagnostic (OneTouch Ultra Test strips) 1 strip miscellaneous BID 1 month bumetanide 1 mg PO Q OTHER DAY 90 days glipizide ER 2.5 mg PO DAILY 90 days lancets One Touch Ultra Test Strips As directed to test blood sugar twice a day. Ninety day supply lancets (OneTouch UltraSoft 2 Lancet) As directed levothyroxine 125 mcg PO DAILY lisinopril 5 mg PO DAILY 90 days pravastatin 40 mg PO DAILY tadalafil 5 mg PO DAILY 90 days tadalafil 20 mg PO ONCE PRN 30 days warfarin 4 mg See Protocol PO DAILY Nursing Note INR: 2.0 in therapeutic range Medications and supplements reviewed left arm with scrapes 1 from keys and the other reaching down in car between seats, both areas with erythema, enc to clean with etoh and apply antbx oinement, and call tracey azul to have vit c foods to help wound healing Denies any signs and symptoms of bleeding or bruising or clotting. Bleeding, bruising, clotting discussed Nutritional guidance given Dose: 2mg mwf/ 4mg x 4 days F/U INR: 2 weeks Patient verbalizes understanding of instructions given Anti-Coag Initial Assessment Social Hx Patient Tobacco Use Status: Former Tobacco user alcohol intake: former Alcohol intake frequency: does not drink Coding Level of Care Code Est Patient Level 1 Diagnoses Current use of anticoagulant therapy Z79.01 Results AMB INR Fingerstick AMB INR Fingerstick 2.0 Last Edit by Elisa Jon RN on 01/04/24 08:22 MANUAL ENTRY FAILED INTERFACING ONGOING Assessment & Plan Assessment & Plan (1) Current use of anticoagulant therapy: Comment: critical high INR Code(s): Z79.01 - exterminator (current) use of 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 Medications: Discontinued tadalafil Daily for bladder urgency Discontinued Reason: Patient no longer taking 5 mg PO DAILY 90 days 90 tabs 1RF R39.15 - Urgency of urination On Hold tadalafil Hold Comment: pt concerned about side effects 20 mg PO ONCE 30 days PRN 30 tabs 0RF sexual activity E11.69 - Type 2 diabetes mellitus with other specified complication, N52.1 - Erectile dysfunction due to diseases classified elsewhere
== END 2024-01-04 08:30 | disposition home or self-care (01) ==
LOC: HO.ACS 08:03
PROVIDERS: PCP Family Medicine; Visit Provider Internal Medicine
DX: Z79.01 Long term (current) use of anticoagulants (principal)

== ENCOUNTER → 2024-01-04 08:03 | Outpatient (BNVA) | payer MEDICARE, SELFPAY | PROVIDERS: PCP Family Medicine; Visit Provider Internal Medicine | DX: I48.0 Paroxysmal atrial fibrillation (principal); Z79.01 Long term (current) use of anticoagulants; Z51.81 Encounter for therapeutic drug level monitoring | CPT/HCPCS: 85610; 99211 ==

== ENCOUNTER 2024-01-17 09:53 | Outpatient (AMB) | payer MEDICARE, SELFPAY ==
--- NOTE | 2024-01-17 10:01 | MHC.PC.OV ---
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 Ninety day supply lancets (OneTouch UltraSoft 2 Lancet) As directed levothyroxine 125 mcg PO DAILY lisinopril 5 mg PO DAILY 90 days pravastatin 40 mg PO DAILY tadalafil 20 mg PO ONCE PRN 30 days warfarin 4 mg See Protocol PO DAILY Tobacco use date assessed: 07/17/23 Dental Screening Dental Screen Date: 07/17/23 HPI Extended exam with f/.u labs and health maint HPI Details Patient is an 88-year-old male with a significant past medical history of hypertension, hyperlipidemia, hypothyroidism, type 2 diabetes, CKD stage 3, anemia, AFib presenting today for a follow up. He normally follows with Dr. Muniz. CV: Blood pressure today in the office is 104/52. He is on lisinopril 5 mg, amlodipine 10 mg. He is on anticoagulation. Cholesterol managed with pravastatin 40 mg Endo: DM-His diabetes is managed with glipizide 2.5 mg daily. His last A1c was 6.8. He is on a statin and RICK inhibitor. Denies hypoglycemia. Endo-on levothyroxine 125 mcg. Nephro: Follows with Nephrology, Dr. Miller. Musculoskeletal: He went to for right, second finger pain. He has a hard time on opening and closing. He also gets triggering of his left 4th finger. [facility] Medical History Chest pain RUQ pain Wheezing Elevated diaphragm Pulmonary nodules Aortic stenosis Edema CAD (coronary artery disease) Diabetes type 2, controlled Elevated prostate specific antigen between 10 and 19 ng/ml Atrial fibrillation Jayy's disease Elevated morning serum cortisol level Surgical History History of cardiac cath Hx of tonsillectomy Hx of colonoscopy Family History Father Colon cancer Mother HTN (hypertension) Type 2 diabetes mellitus Brother No problems noted. Sister No problems noted. Son No problems noted. Son No problems noted. Son No problems noted. Daughter No problems noted. Daughter No problems noted. Social History Housing: Apartment Alcohol intake: former Year quit: 1979 Patient Tobacco Use Status: Former Tobacco user Years Smoked: 45+ e-Cigarette/Vaping Use: Never Used Second Hand Smoke Exposure: No service: Yes ([employer] [id number]) Current occupational status: retired Current occupational exposures/hazards: No Cognitive needs: No Hearing needs: Yes Vision needs: No Questionnaire Thrive Questionnaire Date Thrive assessed: 07/17/23 KOBE-7 AMB Questionnaire KOBE-7 Date KOBE - 7 assessed: 07/17/23 Source: Developed by Drs. [place] Abdi, Ermelinda Hutton, Nagi Berkowitz and colleagues, with an educational noni from [employer]. Physical exam (Primary Care) Vital Signs: Last Vital Signs Pulse 81 01/17/24 10:27 Resp 14 01/17/24 10:27 BP 104/52 L 01/17/24 10:27 Pulse Ox 98 01/17/24 10:27 Oxygen Delivery Method Room Air 01/17/24 10:27 BMI result Body Mass Index 28.6 Tobacco/Smoking Status: Tobacco use Status Tobacco use date assessed 07/17/23 01/17/24 10:01 Patient Tobacco Use Status Former Tobacco user 01/17/24 10:01 e-Cigarette/Vaping Use Never Used 01/17/24 10:01 Thrive Assessment: Date of Thrive Assessment Date Thrive assessed 07/17/23 01/17/24 10:01 Const Orientation/consciousness: patient oriented x3 HENMT Ears: hearing grossly normal bilaterally Neck Thyroid: Thyroid normal Lymphatic: no lymphadenopathy noted Resp Auscultation: clear to auscultation bilaterally Cardio Rate: regular rate Rhythm: regular rhythm Skin Other: there is dry, raised, flaky patch on the left cheek Neuro General: patient oriented x3, gait normal and no focal motor deficits Results AMB Hemoglobin A1c AMB Hemoglobin A1c 6.8 % Last Edit by Ruth Stanton CMA on 01/17/24 10:41 Results Reviewed Results Reviewed: Laboratory Last Values Hgb A1c (Clinic) 6.8 % (4.0-6.0) H 01/17/24 10:39 Laboratory Tests 11/12/23 11/22/23 01/17/24 06:30 07:54 10:39 WBC 7.4 Hgb 12.6 L Hct 37.5 L Plt Count 170 Sodium 142 Potassium 4.1 Chloride 107 Carbon Dioxide 26 Anion Gap 13 BUN 30 H Creatinine 1.54 H Estimated GFR 43 Hgb A1c (Clinic) 6.8 H Assessment and Plan Assessment & Plan (1) Hypertension: Code(s): I10 - Essential (primary) hypertension Qualifiers: Hypertension type: primary hypertension Qualified Code(s): I10 - Essential (primary) hypertension Plan: continue current plan (2) CKD (chronic kidney disease) stage 3, GFR 30-59 ml/min: Code(s): N18.30 - Chronic kidney disease, stage 3 unspecified Qualifiers: Chronic kidney disease stage 3 subtype: stage 3a (GFR 45-59) Qualified Code(s): N18.31 - Chronic kidney disease, stage 3a Plan: stable. avoid nsaids (3) Diabetes type 2, controlled: Code(s): E11.9 - Type 2 diabetes mellitus without complications Qualifiers: Diabetes mellitus detention insulin use: without detention use Diabetes mellitus complication status: with kidney complications Diabetes mellitus complication detail: with chronic kidney disease Plan: continue current plan labs ordered (4) Trigger finger, left ring finger: Code(s): M65.342 - Trigger finger, left ring finger Plan: referral to [facility] (5) Pain involving joint of finger of right hand: Code(s): M25.541 - Pain in joints of right hand Plan: as above (6) Facial lesion: Code(s): L98.9 - Disorder of the skin and subcutaneous tissue, unspecified Plan: referral to [facility] Orders: Orders AMB Hemoglobin A1c Today E11.9 - Type 2 diabetes mellitus without complications Comprehensive [place]. Panel Fast Today E11.9 - Type 2 diabetes mellitus without complications, I10 - Essential (primary) hypertension, N18.31 - Chronic kidney disease, stage 3a Microalbumin, Random (w Creat) Today E11.9 - Type 2 diabetes mellitus without complications, I10 - Essential (primary) hypertension, N18.31 - Chronic kidney disease, stage 3a Hemoglobin A1c Today E11.9 - Type 2 diabetes mellitus without complications, I10 - Essential (primary) hypertension, N18.31 - Chronic kidney disease, stage 3a Referrals Orthopedics Referral M25.541 - Pain in joints of right hand, M65.342 - Trigger finger, left ring finger Dermatology Referral L98.9 - Disorder of the skin and subcutaneous tissue, unspecified Patient Instructions: A1c was good today at 6.8. bp today was normal/low end normal. continue current treatment plan. when you were seen on 12/18 the blood pressure was perfect. I have referred you to dermatology for your face. phone number and address was provided on pink paper. we reviewed how to treat low blood sugars <70 with raisins, jelly beans, honey etc. I have referred you to [facility] for your hand/fingers. f/u in 3 months with labs prior to appointment with pcp Coding Level of Care Code Est Pt Level 4 (99384) Complex EM visit Add On G2211 Diagnoses Primary hypertension I10 Hypertension type: primary hypertension Stage 3a chronic 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 Chronic kidney disease stage 3 subtype: stage 3a (GFR 45-59) Diabetes type 2, controlled E11.9 Diabetes mellitus business intelligence manager insulin use: without business intelligence manager use Diabetes mellitus complication status: with kidney complications Diabetes mellitus complication detail: with chronic kidney disease Trigger finger, left ring finger M65.342 Pain involving joint of finger of right hand M25.541 Facial lesion L98.9
[2024-01-17 10:27] VITALS: BP 104/52; PULSE 81; RESP 14; O2SAT 98; BMI 28.6
== END 2024-01-17 11:21 | disposition home or self-care (01) ==
PROVIDERS: PCP Family Medicine; Visit Provider Physician Assistant
DX: I12.9 Hypertensive chronic kidney disease with stage 1 through stage 4 chronic kidney disease, or unspecified chronic kidney disease (principal); N18.31 Chronic kidney disease, stage 3a; E11.22 Type 2 diabetes mellitus with diabetic chronic kidney disease; M65.342 Trigger finger, left ring finger; M25.541 Pain in joints of right hand; L98.9 Disorder of the skin and subcutaneous tissue, unspecified
CPT/HCPCS: 83036; 99214; G2211

== ENCOUNTER 2024-01-18 07:58 | Outpatient (AMB) | payer MEDICARE, SELFPAY ==
--- NOTE | 2024-01-18 08:30 | MHC.OFFVISCO ---
Intake Intake Visit Reasons: Anticoagulation Allergies hydralazine [Hydralazine] Allergy (Unknown, Verified 01/18/24 08:19) SEVERE HEADACHE Medication List - Last Reconciled 01/18/24 by Elisa Jon RN amlodipine 10 mg PO DAILY 90 days blood sugar diagnostic As directed blood sugar diagnostic (OneTouch Ultra Test strips) 1 strip miscellaneous BID 1 month bumetanide 1 mg PO Q OTHER DAY 90 days glipizide ER 2.5 mg PO DAILY 90 days lancets One Touch Ultra Test Strips As directed to test blood sugar twice a day. Ninety day supply lancets (OneTouch UltraSoft 2 Lancet) As directed levothyroxine 125 mcg PO DAILY lisinopril 5 mg PO DAILY 90 days pravastatin 40 mg PO DAILY tadalafil 20 mg PO ONCE PRN 30 days warfarin 4 mg See Protocol PO DAILY Nursing Note INR: 2.2 in therapeutic range Pt s.o. called the other day stating he was confused as to where this appt was- he was A+O 3 and walked here - no confusion was able to read back dosing Medications and supplements reviewed No changes in health, diet, medications, or supplements, Denies any signs and symptoms of bleeding or bruising or clotting. Bleeding, bruising, clotting discussed Nutritional guidance given Dose: same 2mg mwf/ 4mg x 4 days- dosing sheet with dates helps him F/U INR: 3 weeks Patient verbalizes understanding of instructions given Anti-Coag Initial Assessment Social Hx Patient Tobacco Use Status: Former Tobacco user alcohol intake: former Alcohol intake frequency: does not drink Coding Level of Care Code Est Patient Level 1 Diagnoses Current use of anticoagulant therapy Z79.01 Results AMB INR Fingerstick AMB INR Fingerstick 2.2 Last Edit by Elisa Jon RN on 01/18/24 08:26 MANUAL ENTRY Assessment & Plan Assessment & Plan (1) Current use of anticoagulant therapy: Comment: critical high INR Code(s): Z79.01 - halfway (current) use of 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
[2024-01-18 09:43] LABS: ~PT, ~INR - Anti Coag Clinic 2.2 (0.9-1.1)
== END 2024-01-18 08:33 | disposition home or self-care (01) ==
LOC: HO.ACS 07:58
PROVIDERS: PCP Family Medicine; Visit Provider Internal Medicine
DX: Z79.01 Long term (current) use of anticoagulants (principal)

== ENCOUNTER → 2024-01-18 07:58 | Outpatient (BNVA) | payer MEDICARE, SELFPAY | PROVIDERS: PCP Family Medicine; Visit Provider Internal Medicine | DX: I48.0 Paroxysmal atrial fibrillation (principal); Z79.01 Long term (current) use of anticoagulants; Z51.81 Encounter for therapeutic drug level monitoring | CPT/HCPCS: 85610; 99211 ==

== ENCOUNTER 2024-01-31 11:35 | Outpatient (AMB) | payer MEDICARE, SELFPAY ==
--- NOTE | 2024-01-31 11:35 | MHC.OFFVIS ---
Intake Visit Reasons: Med Concern: Tadalafil Side Effects Intake Note: Patient is Present for Telephone Follow Up Med Review Urology Med: Tadalafil, Finasteride (wants to go back on med) Antibiotic Allergy: None Blood Thinner: Warfarin Patient wants to go back on prescribed medications states that he is better now and was more concerned on possible side effects States that since he has been off medications his urinary frequency has increased Allergies hydralazine [Hydralazine] Allergy (Unknown, Verified 01/18/24 08:19) SEVERE HEADACHE HPI Comments Details: Boston Rivers is a very pleasant male. He is a patient of Dr Muniz and Dr Vuong at [facility]. He is seen for the following urologic conditions. - BPH elevated PSA - with urinary urgency frequency - erectile dysfunction - primary testicular failure and hypergonadtoropic hypogonadism Telemedicine Evaluation 15 min Consultation [employer] Video attempted Has had return of urinary urgency and frequency since stopping finasteride and tadalafil Recommend restarting daily tadalafil 5 mg Persistent elevation FSH and LH. 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 Has lab work that is upper limit of normal for a number of these evaluations - subclinical Jayy's disease Noted that urinary urgency and frequency increased once stopping finasteride and tadalafil Elevated PSA/Abnormal NEO: Current management is medication with 5AR. Laboratory investigations include 10/22 , a total PSA evaluation 4.99 03/24 , a total PSA evaluation - reports as 3.5 09/22 3.0 09/23 1.4, 03/27 3.4, 09/25 FSH 56 T 273, 04/27 FSH 52, LH 22, T 177, PSA 1.3, 10/27 FSH 53 LH 42 E 32, 12/27 P 1.2, 11/27 P 1.4 Individualized Prostate Cancer Risk Calculator 5-10% high risk, Would like to continue with observation and understands and accepts the risks of a possible delay in diagnosis. Symptoms include 09/22 , nocturia, x 1, and are improving. Overall symptoms are mild. Erectile dysfunction Combination of daily and on demand tadalafil [facility] Medical History Chest pain RUQ pain Wheezing Elevated diaphragm Pulmonary nodules Aortic stenosis Edema CAD (coronary artery disease) Diabetes type 2, controlled Elevated prostate specific antigen between 10 and 19 ng/ml Atrial fibrillation [place]'s disease Elevated morning serum cortisol level Surgical History History of cardiac cath Hx of tonsillectomy Hx of colonoscopy Family History Father Colon cancer Mother HTN (hypertension) Type 2 diabetes mellitus Brother No problems noted. Sister No problems noted. Son No problems noted. Son No problems noted. Son No problems noted. Daughter No problems noted. Daughter No problems noted. Social History Housing: Apartment Alcohol intake: former Year quit: 1979 Patient Tobacco Use Status: Former Tobacco user Years Smoked: 45+ e-Cigarette/Vaping Use: Never Used Second Hand Smoke Exposure: No service: Yes ([employer] [id number]) Current occupational status: retired Current occupational exposures/hazards: No Cognitive needs: No Hearing needs: Yes Vision needs: No Telehealth Telehealth Telehealth Platform: [employer] Location of provider rendering services: practice address Location of patient: address on file Patient Identification confirmed using: Name, : Yes Telehealth method: video Patient verbally consented to treatment: Yes Patient verbally consented to billing insurance company: Yes Patient informed of any privacy concerns related to visit: Yes Minutes spent on Phone/Video with Pt.: 15 Assessment & Plan Assessment & Plan (1) Urinary urgency: Code(s): R39.15 - Urgency of urination Category: Medical (2) Hypogonadism in male: Code(s): E29.1 - Testicular hypofunction Category: Medical (3) Erectile dysfunction associated with type 2 diabetes mellitus: Code(s): E11.69 - Type 2 diabetes mellitus with other specified complication; N52.1 - Erectile dysfunction due to diseases classified elsewhere Category: Medical Plan Six-month follow-up office Medications: Discontinued tadalafil On demand medication take 60 minutes before intended activity Discontinued Reason: Patient Completed Course 20 mg PO ONCE 30 days PRN 30 tabs 0RF sexual activity E11.69 - Type 2 diabetes mellitus with other specified complication, N52.1 - Erectile dysfunction due to diseases classified elsewhere Patient Instructions: Imaging studies, laboratory and physical exam results were discussed and reviewed in detail. No major barriers to patient understanding were identified. An opportunity to ask questions regarding the treatment plan was provided. All questions were answered. The patient expressed understanding and agreement with the above treatment plan. The patient is aware they should contact our office by phone for worsening of their current condition or the appearance of new urologic symptoms. Compliance is encouraged with any medications and followup testing that is ordered. It is a privilege to participate in the urologic care of your patient. If you have any questions or concerns regarding treatment for the above conditions, or other urologic issues, please do not hesitate to contact me. The office telephone contact is [phone]. This note is constructed using voice recognition software. While every effort has been made to ensure accuracy waterproofing mixer errors may have been included. Yours sincerely, Dr Dennis Francis MD, [facility] - Urology Providers of Expert, Compassionate Care for the Genitourinary System Coding Level of Care Code Tele Est Pt Level 3 (65220) Diagnoses Urinary urgency R39.15 Hypogonadism in male E29.1 Erectile dysfunction associated with type 2 diabetes mellitus E11.69; N52.1
== END 2024-01-31 13:32 | disposition home or self-care (01) ==
LOC: HO.HUSH 11:35
PROVIDERS: PCP Family Medicine; Visit Provider Urology
DX: R39.15 Urgency of urination (principal); E29.1 Testicular hypofunction; E11.69 Type 2 diabetes mellitus with other specified complication; N52.1 Erectile dysfunction due to diseases classified elsewhere
CPT/HCPCS: 99213

== ENCOUNTER → 2024-01-31 11:35 | Outpatient (BNVA) | payer MEDICARE, SELFPAY | PROVIDERS: PCP Family Medicine; Visit Provider Urology ==

== ENCOUNTER 2024-02-08 07:59 | Outpatient (AMB) | payer MEDICARE, SELFPAY ==
[2024-02-08 08:24] LABS: Prothrombin Time Whole Bld POC 17.7 sec (11.1-13.5); ~PT, ~INR - Anti Coag Clinic 1.5 (0.9-1.1)
--- NOTE | 2024-02-08 08:34 | MHC.OFFVISCO ---
Intake Intake Visit Reasons: Anticoagulation Allergies hydralazine [Hydralazine] Allergy (Unknown, Verified 02/08/24 08:19) SEVERE HEADACHE Medication List - Last Reconciled 02/08/24 by Elisa Jon RN amlodipine 10 mg PO DAILY 90 days blood sugar diagnostic As directed blood sugar diagnostic (OneTouch Ultra Test strips) 1 strip miscellaneous BID 1 month bumetanide 1 mg PO Q OTHER DAY 90 days glipizide ER 2.5 mg PO DAILY 90 days lancets One Touch Ultra Test Strips As directed to test blood sugar twice a day. Ninety day supply lancets (OneTouch UltraSoft 2 Lancet) As directed levothyroxine 125 mcg PO DAILY lisinopril 5 mg PO DAILY 90 days pravastatin 40 mg PO DAILY warfarin 4 mg See Protocol PO DAILY Nursing Note INR 1.5? out of therapeutic range- ate spinach yesterday . taking mvi and vit c which may have lowered it - denies any missed doses Medications and supplements reviewed Patient status: Feels well, has bruises on his arm - perhaps from working out, no c/p or sob or stroke symptoms Medications or supplements: mvi and vit c Diet: good Denies any signs and symptoms of bleeding or clotting or unusual bruising Bleeding, bruising, clotting discussed Nutritional guidance given: avoid greens today and tomorrow - eat orange or reds today Dose: increase to 4mg x 5days/ 2mg x 2 days F/U INR Date : 02/14/24 ?? Patient verbalizing understanding of instructions given. Msg this note to PCP Anti-Coag Initial Assessment Social Hx Patient Tobacco Use Status: Former Tobacco user alcohol intake: former Alcohol intake frequency: does not drink Coding Level of Care Code Est Patient Level 1 Diagnoses Current use of anticoagulant therapy Z79.01 Assessment & Plan Assessment & Plan (1) Current use of anticoagulant therapy: Comment: critical high INR Code(s): Z79.01 - long-term (current) use of 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 Medications: New ascorbic acid (vitamin C) PO multivitamin (Daily Multi-Vitamin) PO
== END 2024-02-08 08:39 | disposition home or self-care (01) ==
LOC: HO.ACS 07:59
PROVIDERS: PCP Family Medicine; Visit Provider Internal Medicine
DX: Z79.01 Long term (current) use of anticoagulants (principal)

== ENCOUNTER → 2024-02-08 07:59 | Outpatient (BNVA) | payer MEDICARE, SELFPAY | PROVIDERS: PCP Family Medicine; Visit Provider Internal Medicine | DX: I48.0 Paroxysmal atrial fibrillation (principal); Z79.01 Long term (current) use of anticoagulants; Z51.81 Encounter for therapeutic drug level monitoring | CPT/HCPCS: 85610; 99211 ==

== ENCOUNTER 2024-02-14 08:02 | Outpatient (AMB) | payer MEDICARE, SELFPAY ==
[2024-02-14 08:11] LABS: Prothrombin Time Whole Bld POC 16.8 sec (11.1-13.5); ~PT, ~INR - Anti Coag Clinic 1.4 (0.9-1.1)
--- NOTE | 2024-02-14 08:22 | MHC.OFFVISCO ---
Intake Intake Visit Reasons: Anticoagulation Allergies hydralazine [Hydralazine] Allergy (Unknown, Verified 02/14/24 08:04) SEVERE HEADACHE Medication List - Last Reconciled 02/14/24 by Elisa Kline RN amlodipine 10 mg PO DAILY 90 days ascorbic acid (vitamin C) PO blood sugar diagnostic As directed blood sugar diagnostic (OneTouch Ultra Test strips) 1 strip miscellaneous BID 1 month bumetanide 1 mg PO Q OTHER DAY 90 days glipizide ER 2.5 mg PO DAILY 90 days lancets One Touch Ultra Test Strips As directed to test blood sugar twice a day. Ninety day supply lancets (OneTouch UltraSoft 2 Lancet) As directed levothyroxine 125 mcg PO DAILY lisinopril 5 mg PO DAILY 90 days multivitamin (Daily Multi-Vitamin) PO pravastatin 40 mg PO DAILY warfarin 4 mg See Protocol PO DAILY Nursing Note INR 1.4?out of therapeutic range of 2-3 Medications and supplements reviewed Patient status: well Medications or supplements: no changes Diet: has avoided greens but has not increased reds Denies any signs and symptoms of bleeding or clotting or unusual bruising Bleeding, bruising, clotting discussed Nutritional guidance given: food list reviewed and pt will increase reds in his diet. Will have beets, carrots and grapes. Dose: increase today to 6mg (4mg) then usual dose of 4mg X 5 days and 2mg X 2 days F/U INR Date : 02/19/24?? Patient verbalizing understanding of instructions given. T/C to Dr Muniz. Spoke to Dominga and critical INR given with dosing plan and next re-test date. 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
== END 2024-02-14 08:32 | disposition home or self-care (01) ==
LOC: HO.ACS 08:02
PROVIDERS: PCP Family Medicine; Visit Provider Internal Medicine
DX: Z79.01 Long term (current) use of anticoagulants (principal)

== ENCOUNTER → 2024-02-14 08:02 | Outpatient (BNVA) | payer MEDICARE, SELFPAY | PROVIDERS: PCP Family Medicine; Visit Provider Internal Medicine | DX: I48.0 Paroxysmal atrial fibrillation (principal); Z79.01 Long term (current) use of anticoagulants; Z51.81 Encounter for therapeutic drug level monitoring | CPT/HCPCS: 85610; 99211 ==

== ENCOUNTER 2024-02-19 07:59 | Outpatient (AMB) | payer MEDICARE, SELFPAY ==
--- NOTE | 2024-02-19 08:17 | MHC.OFFVISCO ---
Intake Intake Visit Reasons: Anticoagulation Allergies hydralazine [Hydralazine] Allergy (Unknown, Verified 02/19/24 08:12) SEVERE HEADACHE Medication List - Last Reconciled 02/19/24 by Cynthia Wood RN amlodipine 10 mg PO DAILY 90 days ascorbic acid (vitamin C) PO blood sugar diagnostic As directed blood sugar diagnostic (OneTouch Ultra Test strips) 1 strip miscellaneous BID 1 month bumetanide 1 mg PO Q OTHER DAY 90 days glipizide ER 2.5 mg PO DAILY 90 days lancets One Touch Ultra Test Strips As directed to test blood sugar twice a day. Ninety day supply lancets (OneTouch UltraSoft 2 Lancet) As directed levothyroxine 125 mcg PO DAILY lisinopril 5 mg PO DAILY 90 days multivitamin (Daily Multi-Vitamin) PO pravastatin 40 mg PO DAILY warfarin 4 mg See Protocol PO DAILY Nursing Note INR: 2.4- in therapeutic range of 2-3 Medications and supplements reviewed No changes in health, diet, medications, or supplements, Denies any signs and symptoms of bleeding or bruising or clotting. Bleeding, bruising, clotting discussed Nutritional guidance given Dose: 4mg x 5, 2mg x 2- dates on dose management sheet F/U INR: 1 week Patient verbalizes understanding of instructions given Anti-Coag Initial Assessment Social Hx Patient Tobacco Use Status: Former Tobacco user alcohol intake: former Alcohol intake frequency: does not drink Coding Level of Care Code Est Patient Level 1 Diagnoses Current use of anticoagulant therapy Z79.01 Results AMB INR Fingerstick AMB INR Fingerstick 2.4 Last Edit by Cynthia Wood RN on 02/19/24 08:18 interface delay Assessment & Plan Assessment & Plan (1) Current use of anticoagulant therapy: Comment: critical high INR Code(s): Z79.01 - snf (current) use of 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
[2024-02-19 08:18] LABS: Prothrombin Time Whole Bld POC 29.2 sec (11.1-13.5); ~PT, ~INR - Anti Coag Clinic 2.4 (0.9-1.1)
== END 2024-02-19 08:24 | disposition home or self-care (01) ==
LOC: HO.ACS 07:59
PROVIDERS: PCP Family Medicine; Visit Provider Internal Medicine
DX: Z79.01 Long term (current) use of anticoagulants (principal)

== ENCOUNTER → 2024-02-19 07:59 | Outpatient (BNVA) | payer MEDICARE, SELFPAY | PROVIDERS: PCP Family Medicine; Visit Provider Internal Medicine | DX: I48.0 Paroxysmal atrial fibrillation (principal); Z79.01 Long term (current) use of anticoagulants; Z51.81 Encounter for therapeutic drug level monitoring | CPT/HCPCS: 85610; 99211 ==

== ENCOUNTER 2024-02-26 08:00 | Outpatient (AMB) | payer MEDICARE, SELFPAY ==
[2024-02-26 08:27] LABS: Prothrombin Time Whole Bld POC 23.9 sec (11.1-13.5)
--- NOTE | 2024-02-26 08:34 | MHC.OFFVISCO ---
Intake Intake Visit Reasons: Anticoagulation Allergies hydralazine [Hydralazine] Allergy (Unknown, Verified 02/26/24 08:23) SEVERE HEADACHE Medication List - Last Reconciled 02/26/24 by Elisa Kline RN amlodipine 10 mg PO DAILY 90 days ascorbic acid (vitamin C) PO blood sugar diagnostic As directed blood sugar diagnostic (OneTouch Ultra Test strips) 1 strip miscellaneous BID 1 month bumetanide 1 mg PO Q OTHER DAY 90 days glipizide ER 2.5 mg PO DAILY 90 days lancets One Touch Ultra Test Strips As directed to test blood sugar twice a day. Ninety day supply lancets (OneTouch UltraSoft 2 Lancet) As directed levothyroxine 125 mcg PO DAILY lisinopril 5 mg PO DAILY 90 days multivitamin (Daily Multi-Vitamin) PO pravastatin 40 mg PO DAILY warfarin 4 mg See Protocol PO DAILY Nursing Note INR: 2.0 in therapeutic range Medications and supplements reviewed No changes in health, diet, medications, or supplements, Denies any signs and symptoms of bleeding or bruising or clotting. Bleeding, bruising, clotting discussed Nutritional guidance given to have more foods from the list that raises the INR. Food list discussed Dose: 4mg X 6 days and 2mg X 1 day F/U INR: 1 week Patient verbalizes understanding of instructions given Anti-Coag Initial Assessment Social Hx Patient Tobacco Use Status: Former Tobacco user alcohol intake: former Alcohol intake frequency: does not drink Coding Level of Care Code Est Patient Level 1 Diagnoses Current use of anticoagulant therapy Z79.01 Results AMB INR Fingerstick AMB INR Fingerstick 2.0 Last Edit by Elisa Kline RN on 02/26/24 08:27 interface delay Assessment & Plan Assessment & Plan (1) Current use of anticoagulant therapy: Comment: critical high INR Code(s): Z79.01 - [facility] (current) use of 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
== END 2024-02-26 08:36 | disposition home or self-care (01) ==
LOC: HO.ACS 08:00
PROVIDERS: PCP Family Medicine; Visit Provider Internal Medicine
DX: Z79.01 Long term (current) use of anticoagulants (principal)

== ENCOUNTER → 2024-02-26 08:00 | Outpatient (BNVA) | payer MEDICARE, SELFPAY | PROVIDERS: PCP Family Medicine; Visit Provider Internal Medicine | DX: I48.0 Paroxysmal atrial fibrillation (principal); Z79.01 Long term (current) use of anticoagulants; Z51.81 Encounter for therapeutic drug level monitoring | CPT/HCPCS: 85610; 99211 ==

== ENCOUNTER 2024-03-06 07:55 | Outpatient (AMB) | payer MEDICARE, SELFPAY ==
[2024-03-06 08:06] LABS: Prothrombin Time Whole Bld POC 23.2 sec (11.1-13.5); ~PT, ~INR - Anti Coag Clinic 1.9 (0.9-1.1)
--- NOTE | 2024-03-06 08:11 | MHC.OFFVISCO ---
Intake Intake Visit Reasons: Anticoagulation Allergies hydralazine [Hydralazine] Allergy (Unknown, Verified 03/06/24 08:01) SEVERE HEADACHE Medication List - Last Reconciled 03/06/24 by Elisa Jon RN amlodipine 10 mg PO DAILY 90 days ascorbic acid (vitamin C) PO blood sugar diagnostic As directed blood sugar diagnostic (OneTouch Ultra Test strips) 1 strip miscellaneous BID 1 month bumetanide 1 mg PO Q OTHER DAY 90 days glipizide ER 2.5 mg PO DAILY 90 days lancets One Touch Ultra Test Strips As directed to test blood sugar twice a day. Ninety day supply lancets (OneTouch UltraSoft 2 Lancet) As directed levothyroxine 125 mcg PO DAILY lisinopril 5 mg PO DAILY 90 days multivitamin (Daily Multi-Vitamin) PO pravastatin 40 mg PO DAILY warfarin 4 mg See Protocol PO DAILY Nursing Note INR: 1.9 ALMOST in therapeutic range Medications and supplements reviewed No changes in health, diet, medications, or supplements, Denies any signs and symptoms of bleeding or bruising or clotting. Bleeding, bruising, clotting discussed Nutritional guidance given [employer] FOOD LIST - EAT AN EXTRA SERVING OF ORANGE OR REDS TODAY TO HELP RAISE INR Dose: INCREASE DOSE NEXT WEEK 2MG X 1 DAY/ 4MG X 6 DAYS F/U INR: 2 WEEKS Patient verbalizes understanding of instructions given Anti-Coag Initial Assessment Social Hx Patient Tobacco Use Status: Former Tobacco user alcohol intake: former Alcohol intake frequency: does not drink Coding Level of Care Code Est Patient Level 1 Diagnoses Current use of anticoagulant therapy Z79.01 Results AMB INR Fingerstick AMB INR Fingerstick 1.9 Last Edit by Elisa Jon RN on 03/06/24 08:07 manual entry Assessment & Plan Assessment & Plan (1) Current use of anticoagulant therapy: Comment: critical high INR 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
== END 2024-03-06 08:16 | disposition home or self-care (01) ==
LOC: HO.ACS 07:55
PROVIDERS: PCP Family Medicine; Visit Provider Internal Medicine
DX: Z79.01 Long term (current) use of anticoagulants (principal)

== ENCOUNTER → 2024-03-06 07:55 | Outpatient (BNVA) | payer MEDICARE, SELFPAY | PROVIDERS: PCP Family Medicine; Visit Provider Internal Medicine | DX: I48.0 Paroxysmal atrial fibrillation (principal); Z79.01 Long term (current) use of anticoagulants; Z51.81 Encounter for therapeutic drug level monitoring | CPT/HCPCS: 85610; 99211 ==

== ENCOUNTER 2024-03-20 07:50 | Outpatient (AMB) | payer MEDICARE, SELFPAY ==
[2024-03-20 08:07] LABS: Prothrombin Time Whole Bld POC 28.7 sec (11.1-13.5); ~PT, ~INR - Anti Coag Clinic 2.4 (0.9-1.1)
--- NOTE | 2024-03-20 08:10 | MHC.OFFVISCO ---
Intake Intake Visit Reasons: Anticoagulation Allergies hydralazine [Hydralazine] Allergy (Unknown, Verified 03/20/24 07:57) SEVERE HEADACHE Medication List - Last Reconciled 03/20/24 by Elisa Jon RN amlodipine 10 mg PO DAILY 90 days ascorbic acid (vitamin C) PO blood sugar diagnostic As directed blood sugar diagnostic (OneTouch Ultra Test strips) 1 strip miscellaneous BID 1 month bumetanide 1 mg PO Q OTHER DAY 90 days glipizide ER 2.5 mg PO DAILY 90 days lancets One Touch Ultra Test Strips As directed to test blood sugar twice a day. 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 he performs ankle pumps, enc his compression sock before getting out of bed. HE IS STILL ABLE TO WALK DAILY, NO C/O OF WORSENING SOB, REMAINING ACTIVE, CLEANS OWN HOME AND EXERCISES THE BEST HE CAN, No changes in diet, medications, or supplements, Denies any signs and symptoms of bleeding or bruising or clotting. Bleeding, bruising, clotting discussed Nutritional guidance given- KEEP EATING A MIX OF FRUITS AND VEGETABLES Dose: KEEP SAME 2MG SUN/ 4MG X 6 DAYS F/U INR: 3 WEEKS DUE TO THANKSGIVING Patient verbalizes understanding of instructions given Anti-Coag Initial Assessment Social Hx Patient Tobacco Use Status: Former Tobacco user alcohol intake: former Alcohol intake frequency: does not drink Coding Level of Care Code Est Patient Level 1 Diagnoses Current use of anticoagulant therapy Z79.01 Results AMB INR Fingerstick AMB INR Fingerstick 2.4 Last Edit by Elisa Jon RN on 03/20/24 08:09 MANUAL ENTRY Assessment & Plan Assessment & Plan (1) Current use of anticoagulant therapy: Comment: critical high INR Code(s): Z79.01 - custodial (current) use of 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
== END 2024-03-20 08:23 | disposition home or self-care (01) ==
LOC: HO.ACS 07:50
PROVIDERS: PCP Family Medicine; Visit Provider Internal Medicine
DX: Z79.01 Long term (current) use of anticoagulants (principal)

== ENCOUNTER → 2024-03-20 07:50 | Outpatient (BNVA) | payer MEDICARE, SELFPAY | PROVIDERS: PCP Family Medicine; Visit Provider Internal Medicine | DX: I48.0 Paroxysmal atrial fibrillation (principal); Z79.01 Long term (current) use of anticoagulants; Z51.81 Encounter for therapeutic drug level monitoring | CPT/HCPCS: 85610; 99211 ==

== ENCOUNTER 2024-04-10 07:20 | Outpatient (REF) | payer BC, SELFPAY ==
--- OUTSIDE RECORDS SUMMARY | 2024-04-15 22:57 | XMS_ITS | Continuity of Care Document ---
Author Name [facility] Organization [facility] Care Team Providers Care Central Scheduler Name Role Phone [facility] Unavailable Unavailable Problems Combined list of problems from Department of Defense and Veterans Affairs facilities. It does not include entries that were removed or entered in error. Problem Status Onset Date Problem Type Date of Resolution Comments Source Abnormal vision Active 05/07/19 Condition May 20, 2019 Entered By: MC DAN Comment: followed by optometry [facility] [place] Benign Prostatic Hypertrophy Without Outflow Obstruction (SCT 861329815) Active 05/07/19 19 Condition May 21, 2018 Entered By: MC DAN Comment: treated with finasteride [facility] Essential hypertension Active 05/07/19 09 Condition [facility] Hearing loss (SNOMED CT 58125466) Active 05/07/19 09 Condition [facility] HLD - Hyperlipidemia Active 05/07/19 09 Condition [facility] Hypothyroidism (SNOMED CT 42931197) Active 05/07/19 09 Condition [facility] Transient Ischemic Attack Active 05/07/19 09 Condition [facility] 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 Aug 24, 2021 Entered By: SKYLAR GREGORY Comment: stable creat level approx 1.5 over past year ( 2021) [facility] Diabetes Mellitus Type 2 (SCT 31682708) Active Condition [facility] History of actinic keratosis Active Condition Feb 08, 2024 Entered By: SKYLAR GREGORY Comment: see tele derm-lesions on right side of face/ vet needs cryotx per derm [facility] Low Back Pain (SCT 745035585) Active Condition Oct 26, 2021 Entered By: SKYLAR GREGORY Comment: vet reports hx of sciatica pain down bilat buttock areas/request s chiro care [facility] Microalbuminuria due to type 2 diabetes mellitus Active Condition [facility] Numbness of hand Active Condition Feb 06, 2022 Entered By: SKYLAR GREGORY Comment: vet has more numbness in left hand than right-over dorsum- not c/w Carpal tunnel [facility] Diagnosis: ICD-10-CM L57.0 Actinic keratosis Active Diagnosis [facility] Diagnosis: ICD-10-CM E11.9 Type 2 diabetes mellitus without complications Active Diagnosis [facility] Diagnosis: ICD-10-CM Z13.89 Encounter for screening for other disorder Active Diagnosis [facility] Diagnosis: ICD-10-CM R21 Rash and other nonspecific skin eruption Active Diagnosis [facility] Diagnosis: ICD-10-CM 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, left eye Active Diagnosis [facility] Diagnosis: ICD-10-CM S46.911A Strain unsp musc/fasc/tend at shldr/up arm, right arm, init Active Diagnosis [facility] Diagnosis: ICD-10-CM H90.3 Sensorineural hearing loss, bilateral Active Diagnosis [facility] Diagnosis: ICD-10-CM E11.22 Type 2 diabetes mellitus w diabetic chronic kidney disease Active Diagnosis [facility] Diagnosis: ICD-10-CM Z46.0 Encounter for fit/adjst of spectacles and contact lenses Active Diagnosis [facility] Diagnosis: ICD-10-CM Z46.1 Encounter for fitting and adjustment of hearing aid Active Diagnosis [facility] Medications Combined list of outpatient medications from Department of Defense and Veterans Affairs facilities.Medications provided include 1) outpatient medications from the last 15 months, and 2) patient-reported medications. Medication Details Route Status Patient Instructions Prescription Expires Prescription Number Last Dispense Date Ordering Provider Order Date Order Qty Source AMLODIPINE BESYLATE 10MG TAB TAKE ONE TABLET BY MOUTH ONCE DAILY ORAL ACTIVE RA AXEL MURRELL 2020 [facility] [place] CARBOXYMETH YLCELLULOSE NA 0.5% SOLN,OPH INSTILL 1 DROP INTO EACH EYE FOUR TIMES A DAY FOR DRY EYE OPHTHA LMIC ACTIVE 12/25/2024 [id number] SOSA,LAC EY J 2023 45 [facility] FUROSEMIDE 20MG TAB TAKE ONE TABLET BY MOUTH ONCE DAILY ORAL ACTIVE RA [facility] GLIPIZIDE 5MG TAB TAKE ONE TABLET BY MOUTH ORAL ACTIVE RA AXEL [facility]URRELL 2020 [facility] LEVOTHYROXI NE NA 137MCG TAB (SYNTHROID) TAKE ONE TABLET BY MOUTH QD ORAL ACTIVE RA AXEL MURRELL 2020 [facility] LISINOPRIL 20MG TAB TAKE ONE TABLET BY MOUTH ONCE DAILY ORAL ACTIVE RA AXEL [facility]URRELL [facility] METOPROLOL SUCCINATE 100MG TAB,SA TAKE ONE TABLET BY MOUTH ONCE DAILY ORAL ACTIVE RA AXEL MURRELL 2020 [facility] PRAVASTATIN NA 40MG TAB TAKE ONE TABLET BY MOUTH AT BEDTIME ORAL ACTIVE PRASHANT DAN 2009 [facility] WARFARIN (NON-VA) TAB TAKE 2MG BY MOUTH ONCE DAILY ORAL ACTIVE RA AXEL MURRELL 2020 [facility] Immunizations Combined list of available immunizations from the Department of Defense and Veterans Affairs facilities. Immunization Series Date Given Administered By Site Reaction Lot Number CVX Code Drug Children'S Literature Professor Status Comments Source INFLUENZA, UNSPECIFIED FORMULATION 2023 88 complet ed [facility] INFLUENZA, UNSPECIFIED FORMULATION 2021 88 complet ed [facility] COVID-19 (MODERNA), MRNA, LNP-S, PF, 100 MCG OR 50 MCG DOSE 3 2020 207 complet ed MOD; [id number]; 2 [facility] COVID-19 (MODERNA), MRNA, LNP-S, PF, 100 MCG/0.5 ML DOSE 2 2020 207 complet ed MOD; [id number]; 1 [facility] COVID-19 (MODERNA), MRNA, LNP-S, PF, 100 MCG/0.5 ML DOSE 1 2020 207 complet ed MOD; [id number]; 1 [facility] INFLUENZA, UNSPECIFIED FORMULATION 2019 88 complet ed [facility] INFLUENZA, SEASONAL, INJECTABLE 2018 141 complet ed [facility] INFLUENZA, SEASONAL, INJECTABLE 2017 141 complet ed [facility] INFLUENZA, SEASONAL, INJECTABLE 2016 141 complet ed [facility] PNEUMOCOCCAL CONJUGATE PCV 13 2016 133 complet ed [facility] FLU,3 YRS (HISTORICAL) 2015 88 complet ed [facility] FLU,3 YRS (HISTORICAL) 2014 88 complet ed [facility] FLU,3 YRS (HISTORICAL) [address] [facility] DTAP, UNSPECIFIED FORMULATION 2012 107 complet ed Site: Left Deltoid [facility] FLU,3 YRS (HISTORICAL) 2011 88 complet ed [facility] TD(ADULT) UNSPECIFIED FORMULATION 2010 139 complet ed Site: Left Deltoid [facility] FLU,3 YRS (HISTORICAL) 2009 88 complet ed received in community flu [facility] [place] [facility] FLU,3 YRS (HISTORICAL) 2008 88 complet ed [facility] PNEUMOCOCCAL, UNSPECIFIED FORMULATION 2003 109 complet ed [facility] Results Combined list of recent chemistry, hematology and other laboratory results from Department of Defense and Veterans Affairs, ranging from 15 months to all on record, depending upon the facility. Order Name Results Value Reference Range Date Interpretation Specimen Comments Source BASIC METABOLIC PANEL (non-fast ing) UREA NITROGEN [MASS/VOLUM E] IN SERUM OR PLASMA 27 mg/dL 7 - 25 08/09 H Specimen Type: SERUM Comment: BUN Verified by repeat analysis. Ordering Provider: SKYLAR ARRIOLA Report Released Date/Time: Aug 09, 2022 09:43 AM Reporting Lab: [facility] [place] [id number] Performing Lab: [facility] [place] [address] [place] [facility] BASIC METABOLIC PANEL (non-fast ing) GLUCOSE [MASS/VOLUM E] IN SERUM OR PLASMA 126 mg/dL 65 - 100 08/09 H Specimen Type: SERUM Comment: BUN Verified by repeat analysis. Ordering Provider: SKYLAR ARRIOLA Report Released Date/Time: Aug 09, 2022 09:43 AM Reporting Lab: [facility] [place] [address] [address] Performing Lab: [facility] [place] [address] [address] [facility] TS [facility] BASIC METABOLIC PANEL (non-fast ing) SODIUM [MOLES/VOLU ME] IN SERUM OR PLASMA 142 mmol/L 135 - 145 08/09 Specimen Type: SERUM Comment: BUN Verified by repeat analysis. Ordering Provider: SKYLAR ARRIOLA Report Released Date/Time: Aug 09, 2022 09:43 AM Reporting Lab: [facility] [place] [facility] [address] [facility] [address] Performing Lab: [place] [facility] [place] [facility] [address] [facility] [address] [place] [facility] [place] [facility] BASIC METABOLIC PANEL (non-fast ing) POTASSIUM [MOLES/VOLU ME] IN SERUM OR PLASMA 4.6 mmol/L 3.5 - 5.0 08/09 Specimen Type: SERUM Comment: BUN Verified by repeat analysis. Ordering Provider: SKYLAR ARRIOLA Report Released Date/Time: Aug 09, 2022 09:43 AM Reporting Lab: [place] [facility] [place] [address] [address] Performing Lab: [place] [facility] [address] [address] [facility] BASIC METABOLIC PANEL (non-fast ing) CHLORIDE [MOLES/VOLU ME] IN SERUM OR PLASMA 105 mmol/L 100 - 110 08/09 Specimen Type: SERUM Comment: BUN Verified by repeat analysis. Ordering Provider: SKYLAR ARRIOLA Report Released Date/Time: Aug 09, 2022 09:43 AM Reporting Lab: [facility] [address] [address] Performing Lab: [place] [facility] [address] [address] [facility] BASIC METABOLIC PANEL (non-fast ing) CARBON DIOXIDE, TOTAL [MOLES/VOLU ME] IN SERUM OR PLASMA 26 meq/L 20 - 30 08/09 Specimen Type: SERUM Comment: BUN Verified by repeat analysis. Ordering Provider: SKYLAR ARRIOLA Report Released Date/Time: Aug 09, 2022 09:43 AM Reporting Lab: [place] [facility] [place] [facility] [address] [facility] [address] Performing Lab: [place] [facility] [address] [address] [facility] [place] [facility] BASIC METABOLIC PANEL (non-fast ing) CREATININE [MASS/VOLUM E] IN SERUM OR PLASMA 1.92 mg/dL 0.50 - 1.40 08/09 H Specimen Type: SERUM Comment: BUN Verified by repeat analysis. Ordering Provider: SKYLAR ARRIOLA Report Released Date/Time: Aug 09, 2022 09:43 AM Reporting Lab: [facility] [address] Performing Lab: [facility] [address] [facility] BASIC METABOLIC PANEL (non-fast ing) GLOMERULAR FILTRATION RATE/1.73 SQ M.PREDICTED [VOLUME RATE/AREA] IN SERUM, PLASMA OR BLOOD BY CREATININE- BASED FORMULA (CKD-EPI) 33 mL/min 60 08/09 L Specimen Type: SERUM Comment: BUN Verified by repeat analysis. Ordering Provider: SKYLAR ARRIOLA Report Released Date/Time: Aug 09, 2022 09:43 AM Reporting Lab: [facility] [address] Performing Lab: [facility] [address] [facility] CBC AND DIFF (AUTO) LEUKOCYTES [#/VOLUME] IN BLOOD BY AUTOMATED COUNT 9.01 10*3/u L 4.50 - 11.00 08/09 Specimen Type: BLOOD No comment entered. Ordering Provider: SKYLAR ARRIOLA Report Released Date/Time: Aug 09, 2022 09:43 AM Reporting Lab: [facility] [address] Performing Lab: [facility] [address] [facility] CBC AND DIFF (AUTO) ERYTHROCYTE S [#/VOLUME] IN BLOOD BY AUTOMATED COUNT 3.97 10*6/u L 4.23 - 5.66 08/09 L Specimen Type: BLOOD No comment entered. Ordering Provider: SKYLAR ARRIOLA Report Released Date/Time: Aug 09, 2022 09:43 AM Reporting Lab: [facility] [address] [facility] [address] Performing Lab: [facility] [facility] [address] [facility] [address] [facility] [place] [facility] CBC AND DIFF (AUTO) HEMOGLOBIN [MASS/VOLUM E] IN BLOOD 14.1 g/dL 12.8 - 17 08/09 Specimen Type: BLOOD No comment entered. Ordering Provider: SKYLAR ARRIOLA Report Released Date/Time: Aug 09, 2022 09:43 AM Reporting Lab: [facility] [place] [facility] [address] [facility] [address] Performing Lab: [facility] [place] [facility] [address] [facility] [address] [place] [facility] [place] [facility] CBC AND DIFF (AUTO) HEMATOCRIT [VOLUME FRACTION] OF BLOOD BY AUTOMATED COUNT 41.5 39.2 - 50.4 08/09 Specimen Type: BLOOD No comment entered. Ordering Provider: SKYLAR ARRIOLA Report Released Date/Time: Aug 09, 2022 09:43 AM Reporting Lab: [facility] [place] [facility] [address] [facility] [address] Performing Lab: [facility] [place] [facility] [address] [facility] [address] [place] [facility] [place] [facility] CBC AND DIFF (AUTO) MCV [ENTITIC VOLUME] BY AUTOMATED COUNT 104.5 fL 82 - 99 08/09 H Specimen Type: BLOOD No comment entered. Ordering Provider: SKYLAR ARRIOLA Report Released Date/Time: Aug 09, 2022 09:43 AM Reporting Lab: [facility] [place] [facility] [address] [facility] [address] Performing Lab: [facility] [place] [facility] [address] [facility] [address] [facility] [place] [facility] CBC AND DIFF (AUTO) MCHC [MASS/VOLUM E] BY AUTOMATED COUNT 34.0 g/dL 30.8 - 35.1 08/09 Specimen Type: BLOOD No comment entered. Ordering Provider: SKYLAR ARRIOLA Report Released Date/Time: Aug 09, 2022 09:43 AM Reporting Lab: [facility] [place] [address] [address] Performing Lab: [place] [facility] [place] [address] [address] [place] [facility] [place] [facility] CBC AND DIFF (AUTO) PLATELETS [#/VOLUME] IN BLOOD BY AUTOMATED COUNT 174 10*3/u L 140 - 360 08/09 Specimen Type: BLOOD No comment entered. Ordering Provider: SKYLAR ARRIOLA Report Released Date/Time: Aug 09, 2022 09:43 AM Reporting Lab: [place] [facility] [place] [address] [address] Performing Lab: [place] [facility] [place] [address] [address] [facility] [place] [facility] CBC AND DIFF (AUTO) ERYTHROCYTE DISTRIBUTIO N WIDTH [RATIO] BY AUTOMATED COUNT 13.2 12.0 - 16.0 08/09 Specimen Type: BLOOD No comment entered. Ordering Provider: SKYLAR ARRIOLA Report Released Date/Time: Aug 09, 2022 09:43 AM Reporting Lab: [place] [facility] [address] [address] Performing Lab: [facility] [place] [address] [address] [place] [facility] [place] [facility] CBC AND DIFF (AUTO) MONOCYTES [#/VOLUME] IN BLOOD BY AUTOMATED COUNT 0.55 10*3/u L 0.30 - 1.10 08/09 Specimen Type: BLOOD No comment entered. Ordering Provider: SKYLAR ARRIOLA Report Released Date/Time: Aug 09, 2022 09:43 AM Reporting Lab: [place] [facility] [place] [address] [address] Performing Lab: [facility] [place] [facility] [address] [facility] [address] [facility] [place] [facility] CBC AND DIFF (AUTO) MCH [ENTITIC MASS] BY AUTOMATED COUNT 35.5 pg 26.2 - 32.6 08/09 H Specimen Type: BLOOD No comment entered. Ordering Provider: SKYLAR ARRIOLA Report Released Date/Time: Aug 09, 2022 09:43 AM Reporting Lab: [facility] [place] [facility] [address] [facility] [address] Performing Lab: [facility] [place] [facility] [address] [facility] [address] [facility] [place] [facility] CBC AND DIFF (AUTO) NEUTROPHILS /100 LEUKOCYTES IN BLOOD BY AUTOMATED COUNT 73.2 43.7 - 75.8 08/09 Specimen Type: BLOOD No comment entered. Ordering Provider: SKYLAR ARRIOLA Report Released Date/Time: Aug 09, 2022 09:43 AM Reporting Lab: [facility] [place] [facility] [address] [facility] [address] Performing Lab: [facility] [place] [facility] [address] [facility] [address] [facility] [place] [facility] CBC AND DIFF (AUTO) LYMPHOCYTES /100 LEUKOCYTES IN BLOOD BY AUTOMATED COUNT 17.9 14.0 - 42.3 08/09 Specimen Type: BLOOD No comment entered. Ordering Provider: SKYLAR ARRIOLA Report Released Date/Time: Aug 09, 2022 09:43 AM Reporting Lab: [facility] [place] [facility] [address] [facility] [address] Performing Lab: [facility] [place] [facility] [address] [place] [address] [facility] [place] [facility] CBC AND DIFF (AUTO) MONOCYTES/1 00 LEUKOCYTES IN BLOOD BY AUTOMATED COUNT 6.1 5.1 - 13.7 08/09 Specimen Type: BLOOD No comment entered. Ordering Provider: SKYLAR ARRIOLA Report Released Date/Time: Aug 09, 2022 09:43 AM Reporting Lab: [facility] [place] [facility] [address] [facility] [address] Performing Lab: [facility] [place] [facility] [address] [facility] [address] [facility] [place] [facility] CBC AND DIFF (AUTO) EOSINOPHILS /100 LEUKOCYTES IN BLOOD BY AUTOMATED COUNT 2.0 0.4 - 6.8 08/09 Specimen Type: BLOOD No comment entered. Ordering Provider: SKYLAR ARRIOLA Report Released Date/Time: Aug 09, 2022 09:43 AM Reporting Lab: [facility] [place] [facility] [address] [facility] [address] Performing Lab: [facility] [place] [address] [address] [facility] [place] [facility] CBC AND DIFF (AUTO) BASOPHILS/1 00 LEUKOCYTES IN BLOOD BY AUTOMATED COUNT 0.6 0.1 - 2.0 08/09 Specimen Type: BLOOD No comment entered. Ordering Provider: SKYLAR ARRIOLA Report Released Date/Time: Aug 09, 2022 09:43 AM Reporting Lab: [facility] [place] [address] [address] Performing Lab: [facility] [place] [address] [address] [facility] [facility] CBC AND DIFF (AUTO) NEUTROPHILS [#/VOLUME] IN BLOOD BY AUTOMATED COUNT 6.60 10*3/u L 2.20 - 7.60 08/09 Specimen Type: BLOOD No comment entered. Ordering Provider: SKYLAR ARRIOLA Report Released Date/Time: Aug 09, 2022 09:43 AM Reporting Lab: [facility] [place] [facility] [address] [facility] [address] Performing Lab: [facility] [place] [address] [address] [facility] [place] [facility] CBC AND DIFF (AUTO) LYMPHOCYTES [#/VOLUME] IN BLOOD BY AUTOMATED COUNT 1.61 10*3/u L 1.00 - 3.20 08/09 Specimen Type: BLOOD No comment entered. Ordering Provider: SKYLAR ARRIOLA Report Released Date/Time: Aug 09, 2022 09:43 AM Reporting Lab: [facility] [place] [facility] [address] [facility] [address] Performing Lab: [place] [facility] [place] [address] [address] [facility] [facility] CBC AND DIFF (AUTO) EOSINOPHILS [#/VOLUME] IN BLOOD BY AUTOMATED COUNT 0.18 10*3/u L 0.03 - 0.44 08/09 Specimen Type: BLOOD No comment entered. Ordering Provider: SKYLAR ARRIOLA Report Released Date/Time: Aug 09, 2022 09:43 AM Reporting Lab: [place] [facility] [place] [address] [address] Performing Lab: [place] [facility] [place] [address] [address] [place] [facility] [place] [facility] CBC AND DIFF (AUTO) BASOPHILS [#/VOLUME] IN BLOOD BY AUTOMATED COUNT 0.05 10*3/u L 0.01 - 0.13 08/09 Specimen Type: BLOOD No comment entered. Ordering Provider: SKYLAR ARRIOLA Report Released Date/Time: Aug 09, 2022 09:43 AM Reporting Lab: [place] [facility] [place] [address] [address] Performing Lab: [facility] [place] [address] [address] [place] [facility] [place] [facility] CBC AND DIFF (AUTO) IMMATURE GRANULOCYTE S/100 LEUKOCYTES IN BLOOD BY AUTOMATED COUNT 0.2 0.0 - 0.7 08/09 Specimen Type: BLOOD No comment entered. Ordering Provider: SKYLAR ARRIOLA Report Released Date/Time: Aug 09, 2022 09:43 AM Reporting Lab: [place] [facility] [place] [address] [address] Performing Lab: [facility] [facility] [address] [facility] [address] [facility] CBC AND DIFF (AUTO) IMMATURE GRANULOCYTE S [#/VOLUME] IN BLOOD 0.02 10*3/u L 0.00 - 0.06 08/09 Specimen Type: BLOOD No comment entered. Ordering Provider: SKYLAR ARRIOLA Report Released Date/Time: Aug 09, 2022 09:43 AM Reporting Lab: [facility] [place] [facility] [address] [facility] [address] Performing Lab: [facility] [address] [facility] HEMOGLOBI N A1C PANEL HEMOGLOBIN A1C/HEMOGLO BIN.TOTAL IN BLOOD BY HPLC 5.7 4.0 - 5.6 08/09 H Specimen Type: BLOOD Comment: Values obtained from A1C measurement s can vary. For atypical A1C assays, a reported value of 7.0 could actually be between 6.72 and 7.28 if measured by a reference method. A reported value of 9.0 could actually be between 8.73 and 9.27. Ref: http://www. ngsp.org/[place] Pdata.asp Ordering Provider: SKYLAR ARRIOLA Report Released Date/Time: Aug 09, 2022 09:43 AM Reporting Lab: [facility] [address] [address] Performing Lab: [facility] [address] [facility] LIVER FUNCTION PROTEIN [MASS/VOLUM E] IN SERUM OR PLASMA 7.5 g/dL 6.0 - 8.3 08/09 Specimen Type: SERUM Comment: BUN Verified by repeat analysis. Ordering Provider: SKYLAR ARRIOLA Report Released Date/Time: Aug 09, 2022 09:43 AM Reporting Lab: [address] [address] Performing Lab: [facility] [address] [address] [facility] [place] [facility] LIVER FUNCTION ALBUMIN [MASS/VOLUM E] IN SERUM OR PLASMA 4.6 g/dL 3.5 - 5.0 08/09 Specimen Type: SERUM Comment: BUN Verified by repeat analysis. Ordering Provider: SKYLAR ARRIOLA Report Released Date/Time: Aug 09, 2022 09:43 AM Reporting Lab: [facility] [place] [address] [address] Performing Lab: [place] [facility] [place] [address] [address] [facility] LIVER FUNCTION ALKALINE PHOSPHATASE [ENZYMATIC ACTIVITY/VO LUME] IN SERUM OR PLASMA 87 U/L 40 - 150 08/09 Specimen Type: SERUM Comment: BUN Verified by repeat analysis. Ordering Provider: SKYLAR ARRIOLA Report Released Date/Time: Aug 09, 2022 09:43 AM Reporting Lab: [place] [facility] [place] [address] [address] Performing Lab: [place] [facility] [address] [address] [facility] LIVER FUNCTION ASPARTATE AMINOTRANSF ERASE [ENZYMATIC ACTIVITY/VO LUME] IN SERUM OR PLASMA 34 U/L 5 - 34 08/09 Specimen Type: SERUM Comment: BUN Verified by repeat analysis. Ordering Provider: SKYLAR ARRIOLA Report Released Date/Time: Aug 09, 2022 09:43 AM Reporting Lab: [facility] [place] [address] [address] Performing Lab: [facility] [address] [address] [facility] LIVER FUNCTION ALANINE AMINOTRANSF ERASE [ENZYMATIC ACTIVITY/VO LUME] IN SERUM OR PLASMA 35 U/L 6 - 55 08/09 Specimen Type: SERUM Comment: BUN Verified by repeat analysis. Ordering Provider: SKYLAR ARRIOLA Report Released Date/Time: Aug 09, 2022 09:43 AM Reporting Lab: [facility] [place] [facility] [address] [facility] [address] Performing Lab: [facility] [address] [facility] [address] [facility] LIVER FUNCTION BILIRUBIN.T OTAL [MASS/VOLUM E] IN SERUM OR PLASMA 0.6 mg/dL 0.2 - 1.2 08/09 Specimen Type: SERUM Comment: BUN Verified by repeat analysis. Ordering Provider: SKYLAR ARRIOLA Report Released Date/Time: Aug 09, 2022 09:43 AM Reporting Lab: [facility] [place] [facility] [address] [facility] [address] Performing Lab: [facility] [place] [facility] [address] [facility] [address] [facility] [place] [facility] THYROID T4 FREE(FT4) THYROXINE (T4) FREE [MASS/VOLUM E] IN SERUM OR PLASMA 0.66 ng/dL 0.6 - 1.6 08/09 Specimen Type: SERUM No comment entered. Ordering Provider: SKYLAR ARRIOLA Report Released Date/Time: Aug 09, 2022 09:43 AM Reporting Lab: [facility] [place] [facility] [address] [facility] [address] Performing Lab: [facility] [place] [facility] [address] [address] [facility] [place] [facility] TSH THYROTROPIN [UNITS/VOLU ME] IN SERUM OR PLASMA 11.71 u[IU]/ mL 0.35 - 5.00 08/09 H Specimen Type: SERUM Comment: BUN Verified by repeat analysis. Ordering Provider: SKYLAR ARRIOLA Report Released Date/Time: Aug 09, 2022 09:43 AM Reporting Lab: [facility] [place] [facility] [address] [facility] [address] Performing Lab: [facility] [place] [facility] [address] [facility] [address] [facility] [place] [place] [facility] Vital Signs Combined list of inpatient and outpatient Vital Signs from Department of Defense and Veterans Affairs, ranging from 12 months to all on record, depending upon the facility. Vital Sign Value Date Comments Source SYSTOLIC BLOOD PRESSURE 125 05/03/20 23 09:44:04 [facility] DIASTOLIC BLOOD PRESSURE 68 023 09:44:04 [facility] [place] [facility] PULSE OXIMETRY 97% 05/03/2023 09:44:04 [facility] WEIGHT 173 05/03/2023 09:44:04 [facility] BMI 28kg/m2 05/03/2023 09:44:04 [facility] PULSE 75 05/03/2023 09:44:04 [facility] RESPIRATION 20 05/03/2023 09:44:04 [facility] [place] [facility] Encounters Combined list of: 1) Encounters from Department of Veterans Affairs facilities going back up to thelast 18 months. 2) Encounters from the Department of Defense facilities going back up to 280 months. Location Location Details Encounter Type Encounter Number Reason For Visit Attending Provider ADM Date DC Date Status Disposition Source [facility] Outpatient Encounter [id number] 10/16 [facility] [place] [facility] EYE EXAM&TX ESTAB PT 1/>VST [id number] Diagnos is: ICD-10- CM H35.372 Puckeri ng of macula, left eye<br/ > SOSA,LACE Y J 12/18 [facility] [place] [facility] Outpatient [facility]counter [id number] 12/21 [facility] [place] [facility] [place] FIT SPECTACLES MONOFOCAL [id number] Diagnos is: ICD-10- CM Z46.0 Encount er for fit/adj st of spectac les and contact lenses< br/> MARIANNA GIBSON 12/21 [facility] OFFICE O/P EST SF 10-19 MIN [id number] Diagnos is: ICD-10- CM E11.9 Type 2 diabete s mellitu s without complic ations< br/> Juan A MACHUCA 01/09 [facility] Out[facility] Encounter [id number] 01/10 [facility] HEARING AID REPAIR/MOD IFYING [id number] Diagnos is: ICD-10- CM Z46.1 Encount er for fitting and adjustm ent of hearing aid<br/ > Huey PEREZ 01/16 [facility] REPAIR & ADJUST SPECTACLES [id number] Diagnos is: ICD-10- CM Z46.0 Encount er for fit/adj st of spectac les and contact lenses< br/> MARYLOU URIAS 01/19 [facility] Out[facility] Encounter [id number] 02/20 [facility] Out[facility] Encounter [id number] 04/23 [facility] OFFICE O/P EST LOW 20-29 MIN [id number] Diagnos is: ICD-10- CM E11.22 Type 2 diabete s mellitu s w diabeti c chronic kidney disease
SKYLAR LEMUS 05/03 [facility] HEARING AID REPAIR/MOD IFYING [id number] Diagnos is: ICD-10- CM H90.3 Sensori neural hearing loss, bilater al
SENIOR,JOHNSON OLE L 05/24 [facility] Out[facility] Encounter [id number] 06/01 [facility] OFFICE O/P EST SF 10 MIN [id number] Diagnos is: ICD-10- CM E11.9 Type 2 diabete s mellitu s without complic ations< br/> Juan A MACHUCA 06/06 [facility] Out[facility] Encounter [id number] 09/24 [facility] Out[facility] Encounter [id number] 09/24 [facility] Out[facility] Encounter [id number] 10/22 [facility] Outpatient Encounter [id number] Diagnos is: ICD-10- CM S46.911 A Strain unsp musc/fa sc/tend at shldr/u p arm, right arm, init
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
TOOTIE REARDON H 01/21 [facility] [place] [facility] [place] UNLISTED SPEC DERM SVC/PX [id number] 1. Diagnos is: ICD-10- CM Z13.89 Encount er for screeni ng for other disorde r
DARCIE HAIR ICA A 02/06 [facility] [place] [facility] [place] [place] [facility] TRIM NAIL(S) [id number] 1. Diagnos is: ICD-10- CM E11.9 Type 2 diabete s mellitu s without complic ations< br/> VICENTE MANZANO GAMALIEL 02/06 [facility] [place] [facility] Outpatient Encounter [id number] Diagnos is: ICD-10- CM L57.0 Actinic keratos is
MARY ARIAS PH J 02/07 [facility] [place] [facility] Outpatient Encounter [id number] 02/07 [place] [facility] [place] [place] [facility] [place] [facility] Outpatient Encounter [id number] 02/10 [facility] [place] [facility] Social History Combined list of available smoking, tobacco, and other social history from Department of Defense and Veterans Affairs facilities. Social History Type Response Date Comment Source Tobacco smoking status NHIS VA-TOBACCO FORMER USER 05/03/2023 [facility] [place] [facility] History of tobacco use NJ-TOBACCO QUIT 15 YRS OR MORE 05/03/2023 [facility] [place] [facility] History of tobacco use NJ-TOBACCO FORMER USER 10/26/2021 [facility] [place] [facility] History of tobacco use NJ-TOBACCO FORMER USER 08/19/2020 [facility] [place] [facility]2018 [facility] [place] [facility]21/2018 [facility] [place] [facility] History of tobacco use QUIT TOBACCO USE > 7 YEARS AGO 05/09/2017 quit 35 yrs ago [place] [facility] [facility] History of tobacco use LIFETIME NON-TOBACCO USER 05/09/2016 [facility] [place] [facility] History of tobacco use QUIT TOBACCO USE > 7 YEARS AGO 05/06/2015 pt states he stopped smoking 20 yrs ago [facility] [facility] History of tobacco use QUIT TOBACCO USE > 7 YEARS AGO 04/05/2009 QUIT 15 YEARS AGO [facility] [place] [facility] Plan of Care List of future care activities from Department of Veterans Affairs facilities. Additional future care activities may be listed in the Assessment and Plan section. Date/Time Care Activity Care Activity Detail Facili ty 04/17/2024 AMBULATORY - MEDICINE [place] [facility] [place] [facility] 06/09/2024 AMBULATORY - MEDICINE AM[place]ATORY [place] [facility] [place] [facility] 09/23/2024 AMBULATORY - MEDICINE AMBULATORY - MEDICI NE [facility] [place] [facility]
--- OUTSIDE RECORDS SUMMARY | 2024-04-15 22:57 | XMS_ITS ---
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 This section includes the names of all active insurance providers for the patient. Insurance Provider Type of Coverage Plan Name Start of Policy Coverage End of Policy Coverage Group Number Member ID Insurance Provider's Telephone Number Policy Witt's Name Patient's Relationship to Policy Witt [facility] (WNR) MEDICARE ADVANTAGE [facility] (WNR) May 07, 2017 [id number] MILLIE AG SR PATIENT Selected Encounter This section includes the information on record at [place] for the Encounter. Date/Time Encounter Type Encounter Description Reason Pro vider Source Apr 23, 2023 08:56 AM Outpatient Encounter ADMIN PAT ACTIVTIES (MASNONCT) IHE Encounter Template Text not used by [place] Plan of Treatment: Future Appointments (+ 6 months) and Future Tests (+/- 45 days) The Plan of Treatment section includes future care activities for the patient from all VA treatmentfacilities. This section includes future appointments and future orders which are active, pending or scheduled. Future Appointments This section includes appointments that were scheduled to occur 6 months from the date of the Encounter, up to a maximum of 20 appointments. The data comes from all [place] treatment facilities. Appointment Date/Time Appointment Type Appointme nt Facility Name May 03, 2023 09:30 AM AMBULATORY - MEDICINE [facility] [place] [facility] May 24, 2023 09:00 AM AMBULATORY - REHAB MEDICIN E [facility] [place] [facility] Jun 01, 2023 09:30 AM AMBULATORY - MEDICINE [facility] [place] [facility] Jun 06, 2023 08:00 AM AM[place]ULATORY [place] MEDICINE [place] [facility] [place] [facility] Social History: Smoking Status (Most current) and Tobacco Use (All prior to encounter date) This section includes the most current, and the historical, smoking and tobacco- related health factors from the [place] facility where the Encounter took place. Current Smoking Status This section includes the most current smoking, or tobacco-related health factor, from the [place] facility where the Encounter took place. Date/Time Current Smoking Status Comment Facil it Oct 26, 2021 10:00 AM VA-TOBACCO FORMER USER [place] [facility] [facility] Tobacco Use History This section includes a history of the smoking, or tobacco-related health factors, that were collected on or before the date of the Encounter. The data comes from the [place] facility where the Encounter took place. Date/Time Smoking Status/Tobac co Use Comment Facility Oct 26, 2021 10:00 AM VA-TOBACCO QUIT 15 YRS OR MORE [facility] [place] [facility] Aug 19, 2020 08:30 AM VA-TOBACCO FORMER USER [facility] [place] [facility] Aug 19, 2020 08:30 AM VA-TOBACCO QUIT 15 YRS OR MORE [facility] [place] [facility] May 21, 2018 09:36 AM VA-TOBACCO FORMER USER [facility] [place] [facility] May 21, 2018 09:36 AM VA-TOBACCO QUIT 15 YRS OR MORE [facility] [place] [facility] May 21, 2018 08:51 AM VA-TOBACCO NEVER USED [facility] [place] [facility] May 09, 2017 09:38 AM QUIT TOBACCO USE > 7 YEARS AGO quit 35 yrs ago [facility] [place] [facility] May 09, 2016 09:45 AM LIFETIME NON-TOBACCO USER [facility] [place] [facility] May 06, 2015 08:02 AM QUIT TOBACCO USE > 7 YEARS AGO pt states he stopped [facility]rs [facility] Apr 05, 2009 02:04 PM QUIT TOBACCO USE > 7 YEARS AGO QUIT [facility] Encounter Notes: All associated encounter notes This section contains the clinical notes associated to the Encounter. Date/Time Encounter Note(s) Provider Source Apr 23, 2023 10:39 AM ADDENDUM: LOCAL TITLE: Addendum STANDARD TITLE: ADDENDUM DATE OF NOTE: APR 23, 2023@10:39:06 ENTRY DATE: APR 23, 2023@10:39:07 AUTHOR: MINERVA CASTRO EXP COSIGNER: URGENCY: STATUS: COMPLETED Forwarding to PACT AMSA /kaylynn/ MINERVA CASTRO, MSN, RN, CNL PRIMARY CARE TEAM NURSE Signed: 04/23/2023 10:39 Receipt Acknowledged By: 04/23/2023 11:14 /kaylynn/ MARTIR ACUNA Advanced Cloth Mercerizing Supervisor === --- Original Document --- 04/23/23 CCC: SCHEDULING ADMINISTRATION: Patient Demographics Patient Name: MILLIE AG Patient Primary Phone: [phone] Patient Primary Address: [address] [place] [address] Patient : 1935 Patient Age: 88 Caller/Recipient Relation to Patient: Self Scheduling Cannot Complete Scheduling Action Reason: Restricted / Unavailable Clinic Requested Service(s): Primary Care Scheduling Note Reason: Cannot Complete Appointment Request Open Request: None of the above Scheduling Note Comments: Patient is requesting to reschedule their 04/23/2023 1:00PM PCP appointment. This verse writer attempted but was unable. Patient can be reached back at [phone]. /kaylynn/ CHELSEA SUNN1 [facility] AMSA Signed: 04/23/2023 08:56 Receipt Acknowledged By: 04/23/2023 10:39 /kaylynn/ CELSO JAIN, RN, CNL PRIMARY CARE TEAM NURSE 04/23/2023 11:12 /kaylynn/ Tsering Aguilar insurance risk manager Staff Nurse 04/23/2023 ADDENDUM STATUS: COMPLETED Appt rescheduled to 05/03 @ 9:30. /kaylynn/ MARTIR ACUNA Advanced Cloth Mercerizing Supervisor Signed: 04/23/2023 11:14 MINERVA CASTRO [place] [facility] [place] [facility] Apr 23, 2023 08:56 AM ADMINISTRATIVE NOTE: LOCAL TITLE: CCC: SCHEDULING ADMINISTRATION STANDARD TITLE: ADMINISTRATIVE NOTE DATE OF NOTE: APR 23, 2023@08:56:34 ENTRY DATE: APR 23, 2023@08:56:34 AUTHOR: CHELSEA RIVERA COSIGNER: URGENCY: STATUS: COMPLETED CCC: SCHEDULING ADMINISTRATION Has ADDENDA Patient Demographics Patient Name: MILLIE AG Patient Primary Phone: [phone] Patient Primary Address: [address] [place] [address] Patient : 1935 Patient Age: 88 Caller/Recipient Relation to Patient: Self Scheduling Cannot Complete Scheduling Action Reason: Restricted / Unavailable Clinic Requested Service(s): Primary Care Scheduling Note Reason: Cannot Complete Appointment Request Open Request: None of the above Scheduling Note Comments: Patient is requesting to reschedule their 04/23/2023 1:00PM PCP appointment. This verse writer attempted but was unable. Patient can be reached back at [phone]. /kaylynn/ CHELSEA RIVERA VISN1 [facility] AMSA Signed: 04/23/2023 08:56 Receipt Acknowledged By: 04/23/2023 10:39 /kaylynn/ CELSO JAIN, RN, CNL PRIMARY CARE TEAM NURSE 04/23/2023 11:12 /kaylynn/ Tsering Aguilar insurance risk manager Staff Nurse 04/23/2023 ADDENDUM STATUS: COMPLETED Forwarding to PACT LISETHA /CELSO Steele, RN, CNL PRIMARY CARE TEAM NURSE Signed: 04/23/2023 10:39 Receipt Acknowledged By: 04/23/2023 11:14 /jannette ACUNA Advanced Cloth Mercerizing Supervisor 04/23/2023 ADDENDUM STATUS: COMPLETED Appt rescheduled to 05/03 @ 9:30. /es/ MARTIR ACUNA Advanced Cloth Mercerizing Supervisor Signed: 04/23/2023 11:14 CHELSEA RIVERAL [facility]
--- OUTSIDE RECORDS SUMMARY | 2024-04-15 22:57 | XMS_ITS ---
Author Name [facility] [place] Organization [place] Address [address] [place] [id number] Care Team Providers Care Personal Financial Counselor Name Role Phone SKYLAR GREGORY Primary Care [...] Witt's Name Patient's Relationship to Policy Witt [facility] (WNR) MEDICARE ADVANTAGE [facility] (WNR) May 07, 2017 [id number] [phone] MILLIE AG SR PATIENT Selected Encounter This section includes the information on record at [place] for the Encounter. Date/Time Encounter Type Encounter Description Reason Provider Source May 03, 2023 09:30 AM OFFICE O/P EST LOW 20-29 MIN PRIMARY CARE/MEDICINE ICD-10-CM E11.22 Type 2 diabetes mellitus w diabetic chronic kidney disease Rory GREGORY Encounter Template Text not used by [place] Assessments - Encounter Diagnoses This section includes the primary and secondary diagnoses documented for the Encounter. Date/Time Primary/Secondary Diagnosis Diagnosis Name Provider Source May 03, 2023 10:02 AM PRIMARY Type 2 diabetes mellitus w diabetic chronic kidney disease SKYLAR GREGORY [facility] May 03, 2023 10:02 AM SECONDARY Chronic kidney disease, unspecified Juan AKristopherSKYLAR MANDUJANO Jos[facility] May 03, 2023 10:02 AM SECONDARY Unspecified sensorineural hearing loss Juan AGORDONNAZIASKYLAR ESPANA Josie [facility] Plan of Treatment: Future Appointments (+ 6 months) and Future Tests (+/- 45 days) The Plan of Treatment section includes future care activities for the patient [facility] [place] [facility] This section includes future appointments and future orders which are active, pending or scheduled. Future Appointments This section includes appointments that were scheduled to occur 6 months from the date of the Encounter, up to a maximum of 20 appointments. The data comes from all [place] treatment facilities. Appointment Date/Time Appointment Type Appointme nt Facility Name May 24, 2023 09:00 AM AMBULATORY - [facility] Jun 01, 2023 09:30 AM AM[facility]UL[facility] - MED[facility] Jun 06, 2023 08:00 AM AM[facility]ULAT[facility] - MEDICINE [facility] Oct 25, 2023 08:30 AM [facility] Vital Signs: All taken on the encounter date This section contains inpatient and outpatient Vital Signs collected on the date of the Encounter. Date/Time Temperature Pulse Blood Pressure Respiratory Rate SP02 Pain Height Weight Body Mass Index Source May 03, 2023 09:44 AM 75 /min 125/68 mm[Hg] 20 /min 97 % 173 lb 28 [facility] Social History: Smoking Status (Most current) and Tobacco Use (All prior to encounter date) This section includes the most current, and the historical, smoking and tobacco- related health factors from the [place] facility where the Encounter took place. Current Smoking Status This section includes the most current smoking, or tobacco-related health factor, from the [place] facility where the Encounter took place. Date/Time Current Smoking Status Carey singh May 03, 2023 09:30 AM VA-TOBACCO FORMER USER [facility] Tobacco Use History This section includes a history of the smoking, or tobacco-related health factors, that were collected on or before the date of the Encounter. The data comes from the [place] facility where the Encounter took place. Date/Time Smoking Status/Tobac co Use Comment Facility May 03, 2023 09:30 AM VA-TOBACCO QUIT 15 YRS OR MORE [facility] [place] [facility] Oct 26, 2021 10:00 AM VA-TOBACCO FORMER USER [facility] [place] [facility] Oct 26, 2021 10:00 AM VA-TOBACCO QUIT 15 YRS OR MORE [facility] [place] [facility] Aug 19, 2020 08:30 AM VA-TOBACCO FORMER USER [facility] [place] [facility] Aug 19, 2020 08:30 AM VA-TOBACCO QUIT 15 YRS OR MORE [facility] [place] [facility] May 21, 2018 09:36 AM VA-TOBACCO FORMER USER [facility] [place] [facility] May 21, 2018 09:36 AM VA-TOBACCO QUIT 15 YRS OR MORE IN [facility] [place] [facility] May 21, 2018 08:51 AM VA-TOBACCO NEVER USED IN [facility] [place] [facility] May 09, 2017 09:38 AM QUIT TOBACCO USE > 7 YEARS AGO quit 35 yrs ago [facility] [place] [facility] May 09, 2016 09:45 AM LIFETIME NON-TOBACCO USER [facility] [place] [facility] May 06, 2015 08:02 AM QUIT TOBACCO USE > 7 YEARS AGO pt states he stopped smoking 20 yrs ago [facility] [place] [facility] Apr 05, 2009 02:04 PM QUIT TOBACCO USE > 7 YEARS AGO QUIT 15 YEARS AGO [facility] [place] [facility] Encounter Notes: All associated encounter notes This section contains the clinical notes associated to the Encounter. Date/Time Encounter Note(s) Provider Source May 03, 2023 09:46 AM PREVENTIVE MEDICINE NURSING NOTE: LOCAL TITLE: CLINICAL REMINDERS/NURSING STANDARD TITLE: PREVENTIVE MEDICINE NURSING NOTE DATE OF NOTE: MAY 03, 2023@09:46 ENTRY DATE: MAY 03, 2023@09:46:21 AUTHOR: TSERING REARDON COSIGNER: URGENCY: STATUS: COMPLETED Advance Directive Screen MH AD: Patient has an up-to-date Advance Directive at an outside, non-va facility and was asked to forward a copy to his/her clinician. Comment: will bring to next visit Homelessness/Food Insecurity Screen: In the past 2 months, have you been living in stable housing that you own, rent, or stay in as part of a household? Yes - Living in stable housing. Are you worried or concerned that in the next 2 months you may NOT have stable housing that you own, rent, or stay in as part of a household? No - Not worried about housing near future The [place] reports the following: Within the past 12 months, you worried whether your food would run out before you got money to buy more. Never true Within the past 12 months, the food you bought just didn't last and you didn't have money to get more. Never true Depression Screening: Perform PHQ-2 A PHQ-2 screen was performed. The score was 0 which is a negative screen for depression. Over the past two weeks, how often have you been bothered by the following problems? 1. Little interest or pleasure in doing things Not at all 2. Feeling down, depressed, or hopeless Not at all Falls & Incontinence Screen: Falls Screen: 4. No falls within the past year. Incontinence Screen: During the past 12 months, has the patient has any characteristics of incontinence (ability, voiding, leakage, etc.)? No incontinence. Tobacco Use Screening: The patient is a former tobacco user. The patient quit fifteen or more years ago. Alcohol Use Screen (AUDIT-C): Alcohol Screen: SCREEN FOR ALCOHOL (AUDIT-C) An alcohol screening test (AUDIT-C) was negative (score=0). 1. How often did you have a drink containing alcohol in the past year? Never 2. How many drinks containing alcohol did you have on a typical day when you were drinking in the past year? Response not required due to responses to other questions. 3. How often did you have six or more drinks on one occasion in the past year? Response not required due to responses to other questions. /kaylynn/ Tsering Reardon RN Primary Care Staff Nurse Signed: 05/03/2023 09:48 TSERING REARDON [facility] [place] [facility] May 03, 2023 08:34 AM PHYSICIAN NOTE: LOCAL TITLE: NOTE STANDARD TITLE: PHYSICIAN NOTE DATE OF NOTE: MAY 03, 2023@08:34 ENTRY DATE: MAY 03, 2023@08:34:13 AUTHOR: JEFF GREGORY EXP COSIGNER: URGENCY: STATUS: COMPLETED HISTORY OF PRESENT ILLNESS: MILLIE AG, is a 88 yo WHITE MALE [place] who presents at the [place] at [facility] CC. hearing loss HPI. vet here to f/u for CKD and hearing loss. he is frustrated with hearing aidd due to background noise and he c/o that hearing aids do not fit in his ear canals. He has no otorrhea, no ear pain. Larat has stable CKD- stage 3A and is followed by local nephrology grp with serial eval to monitor his GFR and he has well controlled BP and diabetes per lab records from his renal and community primary care providers. SH. luis manuel quit smoking decades ago. Active problems - Computerized Problem List is the source for the followin. Numbness of hand 2. Low Back Pain (SCT 131817774) 3. Diabetes Mellitus Type 2 (SCT 04955590) 4. Microalbuminuria due to type 2 diabetes mellitus 5. Chronic kidney disease due to type 2 diabetes mellitus 6. Abnormal vision 7. Benign Prostatic Hypertrophy Without Outflow Obstruction (SCT 309848146) 8. Essential hypertension 9. Hypothyroidism (SNOMED CT 79791555) 10. Transient Ischemic Attack 11. HLD - Hyperlipidemia 12. Hearing Loss, Partial HISTORY: PERIOD OF SERVICE - [facility] FROM Jun TO Apr COMBAT SERVICE INDICATED: No SERVICE CONNECTED % - NONE FOUND VITAL SIGNS: Temperature 98 F [36.7 C] (08/09/2022 09:28) Blood Pressure 104/65 (08/09/2022 09:28) Pulse 62 (08/09/2022 09:28) Respiration 20 (08/09/2022 09:28) Pain 1 (08/09/2022 09:28) BMI BMI: 29.6 Weight 183 lb [83.01 kg] (08/09/2022 09:28) Pulse Oximetry 98% (08/09/2022 09:28) Review of Systems: GASTROINTESTINAL: No abd pain, no N/V/D, no change in stool GENITOURINARY: No dysuria, no hematuria MUSCULOSKELETAL: No joint pain, no joint swelling PSYCHIATRIC: No anxiety, no trouble sleeping, no depression NEUROLOGIC: No H/A, no numbness, no weakness, no tingling EXAMINATION General: Well-appearing 88 yo gentleman/appears younger than stated age// in no obvious distress. Mental Status: Alert and oriented x 3 Head: Normocephalic. Eyes: Anicteric sclerae. Conjunctivae noninjected Lungs: CTA. no crackles, no wheezing CV: RRR. No murmur Psych: Normal mood and affect. Normal judgment. DATA REVIEW >> MEDICATIONS Reviewed Today (VA & Non VA) ALLERGIES: Patient has answered NKA Active Outpatient Medications (including Supplies): Start Date Active Non-VA Medications Refills Expiration 1) Non-VA AMLODIPINE BESYLATE 10MG TAB ACTIVE SiMG BY MOUTH ONCE DAILY 2) Non-VA FUROSEMIDE 20MG TAB SiMG BY ACTIVE MOUTH ONCE DAILY 3) Non-VA GLIPIZIDE 5MG TAB SiMG BY ACTIVE MOUTH 4) Non-VA LEVOTHYROXINE NA (SYNTHROID) ACTIVE 137MCG TAB SiMCG BY MOUTH EVERY DAY 5) Non-VA LISINOPRIL 20MG TAB SiMG BY ACTIVE MOUTH ONCE DAILY 6) Non-VA METOPROLOL SUCCINATE 100MG SA TAB ACTIVE SiMG BY MOUTH ONCE DAILY 7) Non-VA PRAVASTATIN NA 40MG TAB Sig: ACTIVE 40MG BY MOUTH AT BEDTIME 8) Non-VA WARFARIN (NON-VA) TAB SiMG ACTIVE BY MOUTH ONCE DAILY >> LABS REVIEWED TODAY: CHEM 7 TREND LAB CUMULATIVE SELECTED Collection DT Spec GLUCOSE BUN CREATIN Sodium K+/Pot CL CO2 08/09/2022 10:56 SERUM 126 H 27 H 1.92 H 142 4.6 105 26 02/06/2022 09:51 SERUM 160 H 40 H 1.82 H 142 4.1 104 28 10/26/2021 10:29 SERUM 126 H 29 H 1.43 H 144 4.0 103 29 08/24/2021 11:21 SERUM 136 H 29 H 1.57 H 144 4.8 107 29 08/23/2020 13:37 SERUM 132 H 27 H 1.49 H 143 4.2 108 26 Collection DT Spec eGFR 2009 07:19 SERUM >60 LAB CUMULATIVE SELECTED 2 No selection items chosen for this component. CHEM 7 Results Collection DT Spec Sodium K+/Pot CL CO2 GLUCOSE BUN eGFR 08/09/2022 10:56 SERUM 142 4.6 105 26 126 H 27 H 02/06/2022 09:51 SERUM 142 4.1 104 28 160 H 40 H 10/26/2021 10:29 SERUM 144 4.0 103 29 126 H 29 H 08/24/2021 11:21 SERUM 144 4.8 107 29 136 H 29 H 08/23/2020 13:37 SERUM 143 4.2 108 26 132 H 27 H 05/09/2016 11:09 SERUM 142 4.9 105 28 171 H 30 H 10/10/2010 07:15 SERUM 142 4.3 105 27 133 H 20 2009 07:19 SERUM 142 3.8 106 23 141 H 18 >60 CBC TREND Collection DT Spec WBC RBC HGB HCT MCV MCH PLT 08/09/2022 10:56 BLOOD 9.01 3.97 L 14.1 41.5 104.5 H 35.5 H 174 02/06/2022 09:51 BLOOD 8.17 3.71 L 12.8 37.8 L 101.9 H 34.5 H 201 10/26/2021 10:29 BLOOD 9.73 3.76 L 13.0 40.3 107.2 H 34.6 H 280 08/24/2021 11:21 BLOOD 8.06 3.70 L 13.1 38.9 L 105.1 H 35.4 H 199 08/23/2020 13:37 BLOOD 10.74 3.76 L 13.0 39.3 104.5 H 34.6 H 206 HEMOGLOBIN A1C TREND Collection DT Spec HGBA1c 08/09/2022 10:56 BLOOD 5.7 H 02/06/2022 09:51 BLOOD 6.7 H 08/24/2021 11:21 BLOOD 7.4 H 08/23/2020 13:37 BLOOD 7.8 H 10/10/2010 07:14 BLOOD 6.5 H LIPID PANEL TREND Collection DT Spec CHOL HDL CHO/HDL LDL-c TRIG 02/06/2022 09:51 SERUM 153 34 L 4.5 100 96 08/23/2020 13:37 SERUM 143 31 L 4.6 89 115 10/10/2010 07:15 SERUM 154 40 3.9 91 114 2009 07:19 SERUM 214 H 40 5.4 152 H 108 UREA NITROGEN 08/09/22 10:56 27 H CREATININE-EGFR 08/09/22 10:56 1.92 H LIVER PANEL TREND Collection DT Spec AST ALT T BILI ALK JAHAIRA T. PROT ALBUMIN 08/09/2022 10:56 SERUM 34 35 0.6 87 7.5 4.6 02/06/2022 09:51 SERUM 19 19 0.7 93 6.8 4.0 08/24/2021 11:21 SERUM 24 26 0.7 113 7.0 4.1 08/23/2020 13:37 SERUM 17 19 0.9 88 6.8 3.9 05/09/2016 11:09 SERUM 17 18 0.7 63 6.8 4.3 PSA TREND Collection DT Spec PSA SR- 05/09/2016 11:09 SERUM 3.72 10/10/2010 07:15 SERUM 2.43 2009 07:19 SERUM 1.97 Collection DT Spec TSH 08/09/2022 10:56 SERUM 11.71 H ANEMIA PANEL TREND Collection DT Spec B12 SR- Folate HCT Ferrit IRON TIBC 08/09/2022 10:56 BLOOD 41.5 02/06/2022 09:51 BLOOD 37.8 L 10/26/2021 10:29 BLOOD 40.3 08/24/2021 11:21 BLOOD 38.9 L 08/23/2020 13:37 BLOOD 39.3 PT INR TREND No data available >> HEALTH MAINTENANCE PREVENTIVE MEDICINE GOALS Advance Directive Screen MH AD Feb 08 Toxic Exposure Screening DUE NOW Homelessness/Food Insecurity Screen Aug 19 Depression Screening Oct 26 Falls & Incontinence Screen DUE NOW Hepatitis C Testing DUE NOW High Risk for HYPOglycemia Feb 18 Tobacco Use Screening Oct 26 Influenza Immunization DUE NOW Medication Reconciliation DUE NOW Td / Tdap Immunization Dec 06 Alcohol Use Screen (AUDIT-C) Oct 26 COVID-19 Immunization DUE NOW Herpes Zoster (Shingles) Vaccine DUE NOW Sexual Orientation DUE NOW ASSESSMENT/PLAN: 1. CKD 2. hearing loss Plan 1. f/u with renal for ongoing eval and care of his CKD 2. refer to audiology for questions about background noise and poor fitting hearing aids 3. f/u w/ PCP in 1 yr and PRN LAB ORDERS FOR NEXT APPT. spent in patient care and education No barriers; Patient understands and agrees to current treatment plan. If pt has any questions, concerns, or changes in current health status he/she will call or come in to the VA. Medication Reconciliation: Outpatient: Has the patient been taking medications as documented in the EMLR? YES: The patient has been taking medications as documented in the EMLR. Essential Medication List for Review used to complete this medication reconciliation. INCLUDED IN THIS LIST: Alphabetical list of active outpatient prescriptions dispensed from this [place] (local) and dispensed from another [place] or [facility] facility (remote) as well as inpatient orders (local, pending and active), local clinic medications, locally documented non-VA medications, and local prescriptions that have or been discontinued in the past 90 days. - All changes in medications, including all non-VA/Herbal/OTC medications were entered into CPRS. - If there were any medications the patient should no longer take, they were discontinued. - The patient/caregiver was instructed to update this list, discard old lists, and take this list to the next appointment, whether with a VA or non-VA provider. /kaylynn/ SKYLAR GREGORY MD PHYSICIAN Signed: 05/03/2023 10:02 KERI GREGORY [facility]
--- OUTSIDE RECORDS SUMMARY | 2024-04-15 22:59 | XMS_ITS ---
Author Name [facility] [place] Address [address] [place] [address] Care Team Providers Care Marketing Services Manager Name Role Phone SKYLAR GREGORY Primary Care [...] Witt's Name Patient's Relationship to Policy Witt [facility] (WNR) MEDICARE ADVANTAGE [facility] (WNR) May 07, 2017 [id number] [phone] MILLIE AG SR PATIENT Selected Encounter This section includes the information on record at [place] for the Encounter. Date/Time Encounter Type Encounter Description Reason Provider Source May 24, 2023 09:00 AM HEARING AID REPAIR/MODIFYIN G AUDIOLOGY ICD-10-CM H90.3 Sensorineural hearing loss, bilateral DIONNE BRYANT [place] Encounter Template Text not used by [place] Assessments - Encounter Diagnoses This section includes the primary and secondary diagnoses documented for the Encounter. Date/Time Primary/Secondary Diagnosis Diagnosis Name Provider Source May 24, 2023 04:34 PM PRIMARY Sensorineural hearing loss, bilateral DIONNE BRYANT [place] [facility] [place] [facility] Plan of Treatment: Future Appointments (+ 6 months) and Future Tests (+/- 45 days) The Plan of Treatment section includes future care activities for the patient from all [place] [facility]. This section includes future appointments and future orders which are active, pending or scheduled. Future Appointments This section includes appointments that were scheduled to occur 6 months from the date of the Encounter, up to a maximum of 20 appointments. The data comes from all [place] treatment facilities. Appointment Date/Time Appointment Type Appointme nt Facility Name Jun 01, 2023 09:30 AM AMBULATORY - MEDICINE [place] [facility] [place] [facility] Jun 06, 2023 08:00 AM AMBULATORY - MEDICINE [place] [facility] [place] [facility] Oct 25, 2023 08:30 AM AMBULATORY - MEDICINE [facility] [place] [facility] Social History: Smoking Status (Most current) and Tobacco Use (All prior to encounter date) This section includes the most current, and the historical, smoking and tobacco- related health factors from the [place] facility where the Encounter took place. Current Smoking Status This section includes the most current smoking, or tobacco-related health factor, from the [place] facility where the Encounter took place. Date/Time Current Smoking Status Comment Facil it May 03, 2023 09:30 AM VA-TOBACCO FORMER USER [place] [facility] [place] [facility] Tobacco Use History This section includes a history of the smoking, or tobacco-related health factors, that were collected on or before the date of the Encounter. The data comes from the [place] facility where the Encounter took place. Date/Time Smoking Status/Tobac co Use Comment Facility May 03, 2023 09:30 AM VA-TOBACCO QUIT 15 YRS OR MORE NE [facility] [place] [facility] Oct 26, 2021 10:00 AM VA-TOBACCO FORMER USER [place] [facility] [place] [facility] Oct 26, 2021 10:00 AM VA-TOBACCO QUIT 15 YRS OR MORE [facility] [place] [facility] Aug 19, 2020 08:30 AM VA-TOBACCO FORMER USER VA [facility] [place] [facility] Aug 19, 2020 08:30 AM VA-TOBACCO QUIT 15 YRS OR MORE [facility] [place] [facility] May 21, 2018 09:36 AM VA-TOBACCO FORMER USER [place] [facility] [place] [facility] May 21, 2018 09:36 AM VA-TOBACCO QUIT 15 YRS OR MORE [facility] May 21, 2018 08:51 AM VA-TOBACCO NEVER USED [facility] May 09, 2017 09:38 AM QUIT TOBACCO USE > 7 YEARS AGO quit 35 yrs ago [facility] May 09, 2016 09:45 AM LIFETIME NON-TOBACCO USER [facility] May 06, 2015 08:02 AM QUIT TOBACCO USE > 7 YEARS AGO pt states he stopped smoking 20 yrs ago [facility] Apr 05, 2009 02:04 PM QUIT TOBACCO USE > 7 YEARS AGO QUIT 15 YEARS AGO [facility] Encounter Notes: All associated encounter notes This section contains the clinical notes associated to the Encounter. Date/Time Encounter Note(s) Provider Source May 24, 2023 07:31 AM AUDIOLOGY E & M NOTE: LOCAL TITLE: AUDIOLOGY CLINIC STANDARD TITLE: AUDIOLOGY E & M NOTE DATE OF NOTE: MAY 24, 2023@07:31 ENTRY DATE: MAY 24, 2023@07:31:56 AUTHOR: DIONNE BRYANT COSIGNER: URGENCY: STATUS: COMPLETED Dx CODE: H90.3-Sensorineural Hearing Loss, Bilateral APPOINTMENT TYPE: Hearing Re-Evaluation and Hearing Aid Selection BACKGROUND/HISTORY: [place] was seen today for a hearing re-evaluation and hearing aid selection appointment, unaccompanied. He was fit on 09/14/22 with TA EVOLV AI ITC Rs and reports a decline in benefit from these devices. He notes that the hearing aids pick-up too much background noise and he has difficulty understanding speech. His last hearing evaluation was on 08/09/2022 and he believes his hearing has declined somewhat since then. [place] denies tinnitus. He notes that 3-4 months ago he began experiencing episodes of vertigo, typically caused by quick movements (i.e. bending over, getting out of bed, standing up too quickly). He has had recent heart exams and a CT scan of his head. He notes that he hasn't had any episodes of vertigo in ~2 months, but was advised that if episodes reoccur a consult to PT can be placed. Medical history includes: Active problems - Computerized Problem List is the source for the followin. Numbness of hand 2. Low Back Pain ([facility] [id number]) 3. Diabetes Mellitus Type 2 ([facility] [id number]) 4. Microalbuminuria due to type 2 diabetes mellitus 5. Chronic kidney disease due to type 2 diabetes mellitus 6. Abnormal vision 7. Benign Prostatic Hypertrophy Without Outflow Obstruction (SCT 085813623) 8. Essential hypertension 9. Hypothyroidism (SNOMED CT 84574513) 10. Transient Ischemic Attack 11. HLD - Hyperlipidemia 12. [facility] [id number] ASSESSMENT: Results of today's testing are as follows: Otoscopy was WNL bilaterally. Normal tympanograms obtained bilaterally. Pure tone audiometric testing under headphones in the right ear revealed normal hearing at 250 Hz, sloping to a mild to severe SNHL from 500-8000 Hz. Testing in the left ear revealed mild sloping to severe SNHL from 250-8000 Hz. SRT WORD RECOGNITION (Recorded [place] CNC 1/2 Word List) Right 40dBHL 88% @ 80dBHL/50dBm Left 35dBHL 88% @ 80dBHL/50dBm No significant changes were found when compared to the 2022 audiological evaluation. HEARING AID CHECK: Both hearing aids were cleaned and checked, and found to be in good working order. Microphone covers and wax guards were replaced. Hearing aids were reprogrammed from NAL-NL2 to e-Stat. Increased all sound technical manager settings to level 4. Decreased low frequency gain. [place] was counseled on the importance of consistent use of the hearing aids for best hearing outcomes and in order to become acclimated to hearing aid use. EDUCATION/COUNSELING: The patient was counseled re: today's hearing test results. He demonstrated satisfactory understanding of the education and plan, and was given the opportunity to ask questions throughout today's visit. PLAN: 1. Hearing re-evaluation in 3-5 years, or sooner if change in hearing occurs. Patient Education Education provided on the following topics: Hearing test results Education provided to: P Response to Education: VU Wan Patient P Family F Significant Other SO Verbalizes Understanding VU Returns Demonstration RD Performs Independently PI Lacks Comprehension LC Refused Education RE Not Applicable NA /kaylynn/ CYRUS JUDD, CCC-A STAFF DIRECTOR OF GRADUATE ADMISSIONS Signed: 05/24/2023 16:35 DIONNE BRYANT [facility]
--- OUTSIDE RECORDS SUMMARY | 2024-04-15 23:01 | XMS_ITS ---
Author Name [facility] of [facility] ([place] Organization [place] Address [address] [place] [id number] Care Team Providers Care Needle Bar Molder Name Role Phone SKYLAR GREGORY Primary Care [...] Witt's Name Patient's Relationship to Policy Witt [facility] (WNR) MEDICARE ADVANTAGE [facility] (WNR) May 07, 2017 [id number] [phone] MILLIE AG SR PATIENT Selected Encounter This section includes the information on record at [place] for the Encounter. Date/Time Encounter Type Encounter Description Reason Provider Source Jun 06, 2023 08:00 AM OFFICE O/P EST SF 10 MIN PODIATRY ICD-10-CM E11.9 Type 2 diabetes mellitus without complications JEFERSON MACHUCA E Encounter Template Text not used by [place] Assessments - Encounter Diagnoses This section includes the primary and secondary diagnoses documented for the Encounter. Date/Time Primary/Secondary Diagnosis Diagnosis Name Provider Source Jun 06, 2023 08:19 AM PRIMARY Type 2 diabetes mellitus without complications JEFERSON MACHUCA [place] [facility] Jun 06, 2023 08:19 AM SECONDARY Tinea unguium JEFERSON MACHUCA D [place] [facility] [place] [facility] Plan of Treatment: Future Appointments (+ 6 months) and Future Tests (+/- 45 days) The Plan of Treatment section includes future care activities for the patient from all [place] treatmentfacilities. This section includes future appointments and future orders which are active, pending or scheduled. Future Appointments This section includes appointments that were scheduled to occur 6 months from the date of the Encounter, up to a maximum of 20 appointments. The data comes from all [place] treatment facilities. Appointment Date/Time Appointment Type Appointme nt Facility Name Oct 25, 2023 08:30 AM AMBULATORY - MEDICINE [place] [facility] [place] [facility] Social History: Smoking Status (Most current) and Tobacco Use (All prior to encounter date) This section includes the most current, and the historical, smoking and tobacco- related health factors from the [place] facility where the Encounter took place. Current Smoking Status This section includes the most current smoking, or tobacco-related health factor, from the [place] facility where the Encounter took place. Date/Time Current Smoking Status Comment [facility] it May 03, 2023 09:30 AM VA-TOBACCO FORMER USER [place] [facility] [place] [facility] Tobacco Use History This section includes a history of the smoking, or tobacco-related health factors, that were collected on or before the date of the Encounter. The data comes from the [place] facility where the Encounter took place. Date/Time Smoking Status/Tobac co Use Comment Facility May 03, 2023 09:30 AM VA-TOBACCO QUIT 15 YRS OR MORE [place] [facility] [place] [facility] Oct 26, 2021 10:00 AM VA-TOBACCO FORMER USER [place] [facility] [place] [facility] Oct 26, 2021 10:00 AM VA-TOBACCO QUIT 15 YRS OR MORE [place] [facility] [place] [facility] Aug 19, 2020 08:30 AM VA-TOBACCO FORMER USER [place] [facility] [place] [facility] Aug 19, 2020 08:30 AM VA-TOBACCO QUIT 15 YRS OR MORE [facility] [place] [facility] May 21, 2018 09:36 AM VA-TOBACCO FORMER USER [place] [facility] [place] [facility] May 21, 2018 09:36 AM VA-TOBACCO QUIT 15 YRS OR MORE [facility] [place] [facility] May 21, 2018 08:51 AM [facility]-TOBACCO [facility]ED [facility] May 09, 2017 09:38 AM QUIT TOBACCO USE > 7 YEARS AGO quit 35 yrs ago [facility] May 09, 2016 09:45 AM LIFETIME NON-TOBACCO USER [facility] May 06, 2015 08:02 AM QUIT TOBACCO USE > 7 YEARS AGO pt states he stopped smoking 20 yrs ago [facility] Apr 05, 2009 02:04 PM QUIT TOBACCO USE > 7 YEARS AGO QUIT 15 YEARS AGO [facility] Encounter Notes: All associated encounter notes This section contains the clinical notes associated to the Encounter. Date/Time Encounter Note(s) Provider Source Jun 06, 2023 08:17 AM PODIATRY NOTE: LOCAL TITLE: PODIATRY NOTE STANDARD TITLE: PODIATRY NOTE DATE OF NOTE: JUN 06, 2023@08:17 ENTRY DATE: JUN 06, 2023@08:17:38 AUTHOR: CHANG MACHUCA EXP COSIGNER: URGENCY: STATUS: COMPLETED S: 88 y/o male,nsc, w/ IFG, seen for nail care HbA1c was 5.7% in Aug 2022 Last seen 3+ mos ago Active problems - Computerized Problem List is the source for the followin. Abnormal vision followed by optometry 2. Benign Prostatic Hypertrophy Without Outflow Obstruction ([facility] [id number]) treated with finasteride 3. Hypertension * 4. Hypothyroidism 5. Transient Ischemic Attack 6. Hypercholesterolemia 7. Hearing Loss, Partial Allergies: NKA O: Well nourished male , normal gait, wearing a light weight athletic shoe Nails : Thickened,mycotic appearing hallux nails (B), remaining nails are thickened, dystrophic 2-5 (B) Vascular: DP: palpable 1/4 (B)PT:palpable 1/4 (B) cft:2 sec Hair: diminished , dorsum of both feet edema : slight -ankles Sensory: 8/10 tactile( 5.07 monofilament) , vibrational and positional sensations (B) No c/o numbness or paresthesia sensations Skin: plantar skin dry, rough, , mildly calloused, no fissure Diminished plantar fat pad A) DM low risk Onychomycosis. onychodystrophy P) foot exam discussed diabetic foot care skin softener daily- has hydrophilic oint nail debridement 1-5 B/L rtc 3-4 mos Active Outpatient Medications (including Supplies): Active Non-VA Medications Status 1) Non-VA AMLODIPINE BESYLATE 10MG TAB 10MG BY MOUTH ACTIVE ONCE DAILY 2) Non-VA FUROSEMIDE 20MG TAB 20MG BY MOUTH ONCE DAILY ACTIVE 3) Non-VA GLIPIZIDE 5MG TAB 5MG BY MOUTH ACTIVE 4) Non-VA LEVOTHYROXINE NA (SYNTHROID) 137MCG TAB 137MCG ACTIVE BY MOUTH EVERY DAY 5) Non-VA LISINOPRIL 20MG TAB 20MG BY MOUTH ONCE DAILY ACTIVE 6) Non-VA METOPROLOL SUCCINATE 100MG SA TAB 100MG BY ACTIVE MOUTH ONCE DAILY 7) Non-VA PRAVASTATIN NA 40MG TAB 40MG BY MOUTH AT ACTIVE BEDTIME 8) Non-VA WARFARIN (NON-VA) TAB 2MG BY MOUTH ONCE DAILY ACTIVE Podiatry related medications reviewed /es/ CHANG MACHUCA DPM FAMILY LIFE EDUCATOR Signed: 06/06/2023 08:19 CHANG MACHUCA [facility]
--- OUTSIDE RECORDS SUMMARY | 2024-04-15 23:01 | XMS_ITS | Encounter Summary ---
Author Name [facility] of [facility] [place] [facility] [place] Organization [place] Address [address] [place] [address] Care Team Providers Care Keno Terminal Operator Name Role Phone SKYLAR GREGORY Primary Care [...] Witt's Name Patient's Relationship to Policy Witt [facility] (WNR) MEDICARE ADVANTAGE [facility] (WNR) May 07, 2017 [id number] [phone] MILLIE AG SR PATIENT Selected Encounter This section includes the information on record at [place] for the Encounter. Date/Time Encounter Type Encounter Description Reason Pro vider Source September 25, 2023 11:08 AM Outpatient Encounter PODIATRY IHE Encounter Template Text not used by [place] Plan of Treatment: Future Appointments (+ 6 months) and Future Tests (+/- 45 days) The Plan of Treatment section includes future care activities for the patient from all [place] treatmentfacilities. This section includes future appointments and future orders which are active, pending or scheduled. Future Appointments This section includes appointments that were scheduled to occur 6 months from the date of the Encounter, up to a maximum of 20 appointments. The data comes from all [place] treatment facilities. Appointment Date/Time Appointment Type Appointme nt Facility Name Oct 25, 2023 08:30 AM AMBULATORY - MEDICINE [facility] [place] [facility] Dec 25, 2023 08:30 AM AMBULATORY - MEDICINE [facility] [place] [facility] Dec 25, 2023 09:00 AM AMBULATORY - MEDICINE [facility] [place] [facility] Jan 22, 2024 09:30 AM AMBULATORY - MEDICINE [facility] [place] [facility] Feb 07, 2024 02:00 PM AMBULATORY - NONE [facility] [place] [facility] Feb 07, 2024 03:00 PM AMBULATORY - MEDICINE [facility] [place] [facility] Social History: Smoking Status (Most current) and Tobacco Use (All prior to encounter date) This section includes the most current, and the historical, smoking and tobacco- related health factors from the [place] facility where the Encounter took place. Current Smoking Status This section includes the most current smoking, or tobacco-related health factor, from the [place] facility where the Encounter took place. Date/Time Current Smoking Status Comment [facility] it May 03, 2023 09:30 AM VA-TOBACCO FORMER USER [facility] [place] [facility] Tobacco Use History This section includes a history of the smoking, or tobacco-related health factors, that were collected on or before the date of the Encounter. The data comes from the [place] facility where the Encounter took place. Date/Time Smoking Status/Tobac co Use Comment Facility May 03, 2023 09:30 AM VA-TOBACCO QUIT 15 YRS OR MORE [facility] [place] [facility] Oct 26, 2021 10:00 AM VA-TOBACCO FORMER USER [facility] [place] [facility] Oct 26, 2021 10:00 AM VA-TOBACCO QUIT 15 YRS OR MORE [facility] [place] [facility] Aug 19, 2020 08:30 AM VA-TOBACCO FORMER USER [facility] [place] [facility] Aug 19, 2020 08:30 AM VA-TOBACCO QUIT 15 YRS OR MORE [facility] [place] [facility] May 21, 2018 09:36 AM VA-TOBACCO FORMER USER [facility] [place] [facility] May 21, 2018 09:36 AM VA-TOBACCO QUIT 15 YRS OR MORE [facility] [place] [facility] May 21, 2018 08:51 AM VA-TOBACCO NEVER USED [facility] [place] [facility] May 09, 2017 09:38 AM QUIT TOBACCO USE > 7 YEARS AGO quit 35 yrs ago [facility] [place] [facility] May 09, 2016 09:45 AM LIFETIME NON-TOBACCO USER [facility] [place] [facility] May 06, 2015 08:02 AM QUIT TOBACCO USE > 7 YEARS AGO pt states he stopped smoking 20 yrs [facility] Apr 05, 2009 02:04 PM QUIT TOBACCO USE > 7 YEARS AGO QUIT [facility] A[facility] Encounter Notes: All associated encounter notes This section contains the clinical notes associated to the Encounter. Date/Time Encounter Note(s) Provider Source September 25, 2023 11:08 AM TELEPHONE ENCOUNTE R NOTE: LOCAL TITLE: TELEPHONE NOTE/SPECIALTY CLINIC STANDARD TITLE: TELEPHONE ENCOUNTER NOTE DATE OF NOTE: SEPTEMBER 25, 2023@11:08 ENTRY DATE: SEPTEMBER 25, 2023@11:08:19 AUTHOR: ELISA ISRAEL EXP COSIGNER: URGENCY: STATUS: COMPLETED Pt called stating that he will hold off on rescheduling for podiatry nail trim. Will c/b later. /kaylynn/ ELISA ISRAEL ADVANCED FILM RECORDIST Signed: 09/25/2023 11:10 ELISA ISRAEL [facility]
--- OUTSIDE RECORDS SUMMARY | 2024-04-15 23:02 | XMS_ITS | Encounter Summary ---
Author Name Department of [facility] [place] [facility] [place] Organization [place] Address [address] [place] [address] Care Team Providers Care Pyrometer Mechanic Name Role Phone SKYLAR GREGORY Primary Care [...] Witt's Name Patient's Relationship to Policy Witt [facility] (WNR) MEDICARE ADVANTAGE [facility] (WNR) May 07, 2017 [id number] [phone] MILLIE AG SR PATIENT Selected Encounter This section includes the information on record at [place] for the Encounter. Date/Time Encounter Type Encounter Description Reason Pro vider Source September 25, 2023 11:31 AM Outpatient Encounter PODIATRY IHE Encounter Template Text not used by [place] Plan of Treatment: Future Appointments (+ 6 months) and Future Tests (+/- 45 days) The Plan of Treatment section includes future care activities for the patient from all [place] treatmentfacilities. This section includes future appointments and future orders which are active, pending or scheduled. Future Appointments This section includes appointments that were scheduled to occur 6 months from the date of the Encounter, up to a maximum of 20 appointments. The data comes from all [place] treatment facilities. Appointment Date/Time Appointment Type Appointme nt Facility Name Oct 25, 2023 08:30 AM AMBULATORY - MEDICINE [facility] [place] [facility] Dec 25, 2023 08:30 AM AMBULATORY - MEDICINE [facility] [place] [facility] Dec 25, 2023 09:00 AM AMBULATORY - MEDICINE [facility] [place] [facility] Jan 22, 2024 09:30 AM AMBULATORY - MEDICINE [facility] [place] [facility] Feb 07, 2024 02:00 PM AMBULATORY - NONE [facility] [place] [facility] Feb 07, 2024 03:00 PM AMBULATORY - MEDICINE [facility] [place] [facility] Social History: Smoking Status (Most current) and Tobacco Use (All prior to encounter date) This section includes the most current, and the historical, smoking and tobacco- related health factors from the [place] facility where the Encounter took place. Current Smoking Status This section includes the most current smoking, or tobacco-related health factor, from the [place] facility where the Encounter took place. Date/Time Current Smoking Status Comment [facility] it May 03, 2023 09:30 AM VA-TOBACCO FORMER USER [facility] [place] [facility] Tobacco Use History This section includes a history of the smoking, or tobacco-related health factors, that were collected on or before the date of the Encounter. The data comes from the [place] facility where the Encounter took place. Date/Time Smoking Status/Tobac co Use Comment Facility May 03, 2023 09:30 AM VA-TOBACCO QUIT 15 YRS OR MORE [facility] [place] [facility] Oct 26, 2021 10:00 AM VA-TOBACCO FORMER USER [facility] [place] [facility] Oct 26, 2021 10:00 AM VA-TOBACCO QUIT 15 YRS OR MORE [facility] [place] [facility] Aug 19, 2020 08:30 AM VA-TOBACCO FORMER USER [facility] [place] [facility] Aug 19, 2020 08:30 AM VA-TOBACCO QUIT 15 YRS OR MORE [facility] [place] [facility] May 21, 2018 09:36 AM VA-TOBACCO FORMER USER [facility] [place] [facility] May 21, 2018 09:36 AM VA-TOBACCO QUIT 15 YRS OR MORE [facility] [place] [facility] May 21, 2018 08:51 AM VA-TOBACCO NEVER USED [facility] [place] [facility] May 09, 2017 09:38 AM QUIT TOBACCO USE > 7 YEARS AGO quit 35 yrs ago [facility] [place] [facility] May 09, 2016 09:45 AM LIFETIME NON-TOBACCO USER [facility] [place] [facility] May 06, 2015 08:02 AM QUIT TOBACCO USE > 7 YEARS AGO pt states he stopped smoking 20 yrs ago [facility] [place] [facility] Apr 05, 2009 02:04 PM QUIT TOBACCO USE > 7 YEARS AGO QUIT [facility] Encounter Notes: All associated encounter notes This section contains the clinical notes associated to the Encounter. Date/Time Encounter Note(s) Provider Source September 25, 2023 11:34 AM LETTERS: LOCAL TITLE: PATIENT LETTER (B) STANDARD TITLE: LETTERS DATE OF NOTE: SEPTEMBER 25, 2023@11:34 ENTRY DATE: SEPTEMBER 25, 2023@11:34:33 AUTHOR: ALEXANDER MCCLELLAN COSIGNER: URGENCY: STATUS: COMPLETED SEPTEMBER 25, 2023 MILLIE AG [address] [place] [id number] Dear MILLIE AG Thank you for choosing the Department of [facility] ([place]) [facility] as your primary choice for health care. As a partner in your health care, we are contacting you in writing since we have been unsuccessful in our attempts to reach you to date. We want to assure you we are doing everything possible to schedule Veterans for their VA medical care appointments. Our records indicate you are due for an appointment in PODIATRY NAIL . If you would like to be seen, please contact [place] Call Center at ext. [phone] to schedule an appointment. Thank you for your service to our nation, and we look forward to hearing from you soon. Sincerely, [facility] [address] [facility] [address] [place] [address] [place] [address] [phone] [facility] [address] [facility] [address] [place] [address] [place] [address] ext. [phone] [facility] [address] [address] [place] [address] ext. [phone] ALEXANDER MCCLELLAN [facility] September 25, 2023 11:31 AM ADMINISTRATIVE NOT E: LOCAL TITLE: ADMINISTRATIVE RECALL NOTE STANDARD TITLE: ADMINISTRATIVE NOTE DATE OF NOTE: SEPTEMBER 25, 2023@11:31 ENTRY DATE: SEPTEMBER 25, 2023@11:31:39 AUTHOR: ALEXANDER MCCLELLAN EXP COSIGNER: URGENCY: STATUS: COMPLETED ADMINISTRATIVE RECALL NOTE Has ADDENDA RTC orders: Unable to contact patient: Attempts to contact: 1st attempt: will cb to RS 2nd attempt: Letter mailed Disposition on Oct 3rd attempt: 4th attempt: [place] cancelled appointment as his INR was at a 7 and he was told to hold off on this appointment until he rechecks it next week. /jannette MCCLELLAN ADVANCED MOLD CHECKER Signed: 09/25/2023 11:33 09/25/2023 ADDENDUM STATUS: COMPLETED Nurse and provider notified via teams. /jannette MCCLELLAN ADVANCED MOLD CHECKER Signed: 09/25/2023 11:33 10/09/2023 ADDENDUM STATUS: COMPLETED RTC 10/03/2023 dispositioned due to veterans failure to respond to all contact efforts per department standards. Dispositioned on 10/09/2023. /jannette MCCLELLAN ADVANCED MOLD CHECKER Signed: 10/09/2023 11:31 ALEXANDER MCCLELLAN [facility]
--- OUTSIDE RECORDS SUMMARY | 2024-04-15 23:03 | XMS_ITS | Encounter Summary ---
Author Name [facility] [place] [facility] [place] Address [address] [place] [address] Care Team Providers Care Tear Down Matcher Name Role Phone SKYLAR GREOGRY Primary Care Provider Unav ailable Insurance Providers: [...] Witt's Name Patient's Relationship to Policy Witt [facility] (WNR) MEDICARE ADVANTAGE [facility] (WNR) May 07, 2017 [id number] M[address] SR PATIENT Selected Encounter This section includes the information on record at [place] for the Encounter. Date/Time Encounter Type Encounter Description Reason Provider Source Oct 25, 2023 08:30 AM Outpatient Encounter TELEPHONE TRIAGE ICD-10-CM S46.911A Strain unsp musc/fasc/ten d at shldr/up arm, right arm, init TRACI CHASE NP [facility] Encounter Template Text not used by [place] Assessments - Encounter Diagnoses This section includes the primary and secondary diagnoses documented for the Encounter. Date/Time Primary/Secondary Diagnosis Diagnosis Name Provider Source Oct 25, 2023 08:30 AM PRIMARY Strain unsp musc/fasc/tend at shldr/up arm, right arm, init TRACI CHASE NP [facility] Oct 25, 2023 08:30 AM SECONDARY Low back pain, unspecified [facility] [place] [facility] Oct 25, 2023 08:30 AM SECONDARY Type 2 diabetes mellitus without complications TRACI CHASE PEOPLE MANAGER [facility] Plan of Treatment: Future Appointments (+ 6 months) and Future Tests (+/- 45 days) The Plan of Treatment section includes future care activities for the patient from all [place] [facility] [place] This section includes future appointments and future orders which are active, pending or scheduled. Future Appointments This section includes appointments that were scheduled to occur 6 months from the date of the Encounter, up to a maximum of 20 appointments. The data comes from all [place] treatment facilities. Appointment Date/Time Appointment Type Appointme nt Facility Name Dec 25, 2023 08:30 AM AMBULATORY - MEDICINE [facility] Dec 25, 2023 09:00 AM AMBULATORY - MEDICINE [facility] [place] [facility] Jan 22, 2024 09:30 AM AMBULATORY - MEDICINE PA C [facility] [place] [facility] Feb 07, 2024 02:00 PM AMBULATORY - NONE [place] [facility] [place] [facility] Feb 07, 2024 03:00 PM AMBULATORY - MEDICINE [facility] [place] [facility] Apr 17, 2024 10:00 AM AMBULATORY - MEDICINE [facility] Social History: Smoking Status (Most current) and Tobacco Use (All prior to encounter date) This section includes the most current, and the historical, smoking and tobacco- related health factors from the [place] facility where the Encounter took place. Current Smoking Status This section includes the most current smoking, or tobacco-related health factor, from the [place] facility where the Encounter took place. Date/Time Current Smoking Status Comment Facil it May 03, 2023 09:30 AM [facility]CO [facility] Tobacco Use History This section includes a history of the smoking, or tobacco-related health factors, that were collected on or before the date of the Encounter. The data comes from the [place] facility where the Encounter took place. Date/Time Smoking Status/Tobac co Use Comment Facility May 03, 2023 09:30 AM VA-TOBACCO QUIT 15 YRS OR MORE [facility] [place] [facility] Oct 26, 2021 10:00 AM VA-TOBACCO FORMER USER [facility] [place] [facility] Oct 26, 2021 10:00 AM VA-TOBACCO QUIT 15 YRS OR MORE [facility] [place] [facility] Aug 19, 2020 08:30 AM VA-TOBACCO FORMER USER [facility] [place] [facility] Aug 19, 2020 08:30 AM VA-TOBACCO QUIT 15 YRS OR MORE [facility] [place] [facility] May 21, 2018 09:36 AM VA-TOBACCO FORMER USER [facility] [place] [facility] May 21, 2018 09:36 AM VA-TOBACCO QUIT 15 YRS OR MORE [place] [facility] [place] [facility] May 21, 2018 08:51 AM VA-TOBACCO NEVER USED [place] [facility] [place] [facility] May 09, 2017 09:38 AM QUIT TOBACCO USE > 7 YEARS AGO quit 35 yrs ago [place] [facility] [place] [facility] May 09, 2016 09:45 AM LIFETIME NON-TOBACCO USER [place] [facility] [place] [facility] May 06, 2015 08:02 AM QUIT TOBACCO USE > 7 YEARS AGO pt states he stopped smoking 20 yrs ago [facility] [place] [facility] Apr 05, 2009 02:04 PM QUIT TOBACCO USE > 7 YEARS AGO QUIT 15 YEARS AGO [place] [facility] [place] [facility] Encounter Notes: All associated encounter notes This section contains the clinical notes associated to the Encounter. Date/Time Encounter Note(s) Provider Source Oct 25, 2023 08:36 AM TELEHEALTH NOTE: LOCAL TITLE: TELE EMERGENCY CARE NOTE STANDARD TITLE: TELEHEALTH NOTE DATE OF NOTE: OCT 25, 2023@08:36 ENTRY DATE: OCT 25, 2023@08:36:55 AUTHOR: TRACI CHASE NP EXP COSIGNER: URGENCY: STATUS: COMPLETED This is a tele-emergency care visit to address acute/urgent issues. Definitive care on chronic medical issues will be deferred to routine Primary Care appointment/provider. Consult Origin: Referral from the Clinical Contact Center/Call Center Type of Visit: Phone Visit: Visit conducted by telephone. Location/emergency number confirmed. Emergency contact information was obtained as follows: Patient's current address [address] [place] [address] Patient's Phone Number:PATIENT PHONE - PHONE NUMBER [CELLULAR] - NONE FOUND Primary NOK: PERRY VAZQUEZ Relation: EXTENDED FAMILY M [address] [facility] [place], [place] [address] Subjective: mr. Ag is 88 M w/ hx LBP, DM2, CKD, BPH, HTN, hx TIA, hypothyrodism. Report of X 1 month of LBP +Mid back pain/low back pain - intermittent - 5-8 /10 +pain w/ movements- moving arm. +lateral moveement of arm - +pain right side - dominate arm/golf hitting +burning fingers - LEFT palm/ring finger - sleeping w/ arm/hand under pillow Right pointing finger -warm/cold water/massage w/ good effect. -Deny edema/erythem/ -seen by outside PC - slight wheeze but pt. is denying SOB, wheezing, CP. Active: play golf and martial art Alleviating factor: masssage/heat/cold - good effect Aggravating factor: overuse Deny erythema/edema/crepitus/warm th/limit ROM/surgery/injury. Self treatment: no tx Deny cauda equinus symptoms, abd/flank/groin, weakness, neuro/muscle change, fall, zaman, sob, zaman, chest pain, syncope, s/s infection, fever, chill., trauma, cancer, weight loss/gains, s/s infection/ cellulitis/ulcer/wound, hx injury/surgery, numbness, tingling or radiating pain. 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 Abnormal vision ([facility] [id number]) N40.0 Benign Prostatic Hypertrophy Without Outflow Obstruction ([facility] [id number]) I10. Essential hypertension ([facility] [id number]) E03.9 Hypothyroidism ([facility] [id number]) 435.9 Transient Ischemic Attack (ICD-9-CM 435.9) E78.5 HLD - Hyperlipidemia ([facility] [id number]) H90.5 Hearing loss ([facility] [id number]) ALLERGIES/ADR: Patient has answered NKA Active Outpatient Medications (including Supplies): Non-VA AMLODIPINE BESYLATE 10MG TAB 10MG BY MOUTH ONCE ACTIVE DAILY Non-VA FUROSEMIDE 20MG TAB 20MG BY MOUTH ONCE DAILY ACTIVE Non-VA GLIPIZIDE 5MG TAB 5MG BY MOUTH ACTIVE Non-VA LEVOTHYROXINE NA (SYNTHROID) 137MCG TAB 137MCG BY ACTIVE MOUTH EVERY DAY Non-VA LISINOPRIL 20MG TAB 20MG BY MOUTH ONCE DAILY ACTIVE Non-VA METOPROLOL SUCCINATE 100MG SA TAB 100MG BY MOUTH ACTIVE ONCE DAILY Non-VA PRAVASTATIN NA 40MG TAB 40MG BY MOUTH AT BEDTIME ACTIVE Non-VA WARFARIN (NON-VA) TAB 2MG BY MOUTH ONCE DAILY ACTIVE Current medications reviewed with patient/caregiver and reconciliation of medications related to today's visit completed, including non-VA medications and discrepancies, if identified, were addressed. Medication changes and the importance of medication management were reviewed with the patient/caregiver today based on individual needs. Patient/caregiver acknowledged understanding of instructions as stated. Objective: Reason for Referral: Musculoskeletal Assessment/Impression: +RIGHt shoulder/arm/mid back pain r/t overuse muscle from golf - muscle strain +neuropathy hand/finger r/t compression when sleeping - relief w/ stretches and/or cold/warm compress. Plan: -PT agree to continue self care stretches, hydration, hot/cold, OTC med/gel, yoga, diet, VA Acupressure. Fall/Safety precaution. -Pt agree if worsen symptoms, cauda equinus, Neuro or muscle change, sob, cp, s/s infection, extreme pain to go to ER. -Pt decline PT, prefer to try stretches and youtube. agree to stop any stretches if cause pain agree to call back in 2-3 weeks if PT is needed. -Notify [facility] team Plan: Issue resolved with Tele Urgent Care appointment Patient verbalizes understanding of the care plan Time spent in telephone/video visit: /kaylynn/ TRACI CHASE AGPCNP- VIS[facility] 1 Clinical Contact Center Signed: 10/25/2023 09:33 Receipt Acknowledged By: 10/26/2023 09:37 /es/ MINERVA CASTRO, MSN, RN, CNL PRIMARY CARE TEAM NURSE TRACI CHASE NP [facility]
--- OUTSIDE RECORDS SUMMARY | 2024-04-15 23:04 | XMS_ITS ---
Author Name [facility] [place] [facility] [place] Organization [facility] [place] Address [address] [place] [address] Care Team Providers Care Fuller Brush Man Name Role Phone SKYLAR GREGORY Primary Care [...] Witt's Name Patient's Relationship to Policy Witt [facility] (WNR) MEDICARE ADVANTAGE [facility] (WNR) May 07, 2017 [id number] [phone] MILLIE AG SR PATIENT Selected Encounter This section includes the information on record at [place] for the Encounter. Date/Time Encounter Type Encounter Description Reason Provider Source Jan 22, 2024 09:30 AM OFF/OP EST SEPTEMBER X REQ PHY/QHP PRIMARY CARE/MEDICINE ICD-10-CM R21 Rash and other nonspecific skin eruption TSERING REARDON [facility] Encounter Template Text not used by [place] Assessments - Encounter Diagnoses This section includes the primary and secondary diagnoses documented for the Encounter. Date/Time Primary/Secondary Diagnosis Diagnosis Name Provider Source Jan 22, 2024 10:05 AM PRIMARY Rash and other nonspecific skin eruption TSERING REARDON [place] [facility] Plan of Treatment: Future Appointments (+ 6 months) and Future Tests (+/- 45 days) The Plan of Treatment section includes future care activities for the patient from all [place] treatmentfacilities. This section includes future appointments and future orders which are active, pending or scheduled. Future Appointments This section includes appointments that were scheduled to occur 6 months from the date of the Encounter, up to a maximum of 20 appointments. The data comes from all [place] treatment [facility]. Appointment Date/Time Appointment Type Appointme nt Facility Name Feb 07, 2024 02:00 PM [facility] Feb 07, 2024 03:00 PM [facility] Apr 17, 2024 10:00 AM [facility] Jun 09, 2024 10:00 AM AMBULATORY - MEDICINE [facility] Active, Pending, and Scheduled Orders This section includes a listing of several types of active, pending, and scheduled orders, including clinic medications orders, diagnostic test orders, procedure orders and consult orders; where the start date of the order is 45 days before the date of the Encounter or 45 days after the date of theEncounter. The data comes from all [facility]. Test Date/Time Test Type Test Details Facility Name Feb 08, 2024 08:25 AM Consult Order DERMATOLOG Y/[facility] (OUTPT) Cons Project Reservoir Engineer's Choice [facility] Social History: Smoking Status (Most current) and Tobacco Use (All prior to encounter date) This section includes the most current, and the historical, smoking and tobacco- related health factors from the [place] facility where the Encounter took place. Current Smoking Status This section includes the most current smoking, or tobacco-related health factor, from the [place] facility where the Encounter took place. Date/Time Current Smoking Status Comment Facil it May 03, 2023 09:30 AM VA-TOBACCO FORMER USER [facility] Tobacco Use History This section includes a history of the smoking, or tobacco-related health factors, that were collected on or before the date of the Encounter. The data comes from the [place] facility where the Encounter took place. Date/Time Smoking Status/Tobac co Use Comment Facility May 03, 2023 09:30 AM VA-TOBACCO QUIT 15 YRS OR MORE VA [facility] [place] [facility] Oct 26, 2021 10:00 AM VA-TOBACCO FORMER USER [facility] [place] [facility] Oct 26, 2021 10:00 AM VA-TOBACCO QUIT 15 YRS OR MORE [facility] [place] [facility] Aug 19, 2020 08:30 AM VA-TOBACCO FORMER USER [facility] [place] [facility] Aug 19, 2020 08:30 AM VA-TOBACCO QUIT 15 YRS OR MORE [facility] [place] [facility] May 21, 2018 09:36 AM VA-TOBACCO FORMER USER [facility] [place] [facility] May 21, 2018 09:36 AM VA-TOBACCO QUIT 15 YRS OR MORE [place] [facility] May 21, 2018 08:51 AM VA-TOBACCO NEVER USED [place] [facility] May 09, 2017 09:38 AM QUIT TOBACCO USE > 7 YEARS AGO quit 35 yrs ago [facility] [place] [facility] May 09, 2016 09:45 AM LIFETIME NON-TOBACCO USER [facility] [place] [facility] May 06, 2015 08:02 AM QUIT TOBACCO USE > 7 YEARS AGO pt states he stopped smoking 20 yrs ago [facility] [place] [facility] Apr 05, 2009 02:04 PM QUIT TOBACCO USE > 7 YEARS AGO QUIT 15 YEARS AGO [place] [facility] [place] [facility] Encounter Notes: All associated encounter notes This section contains the clinical notes associated to the Encounter. Date/Time Encounter Note(s) Provider Source Jan 22, 2024 09:59 AM [facility]: LOCAL TITLE: AMBULATORY/OUTPATIENT CARE NOTE STANDARD TITLE: PRIMARY CARE OUTPATIENT NOTE DATE OF NOTE: JAN 22, 2024@09:59 ENTRY DATE: JAN 22, 2024@09:59:33 AUTHOR: TSERING REARDON EXP COSIGNER: URGENCY: STATUS: COMPLETED AMBULATORY/OUTPATIENT CARE NOTE Has ADDENDA Rudolph presented to Primary Care with complaints of flat red circular spots on his left and right side uatsdin. Vet states that they have been there for months . He is requesting a dermatology consult to have areas evalauted. He is agreeable to have atelederm appointment wi PCP feels its warranted. Areas present on both left and right uatsdin. Present as small, flat red circular patches of skin. Denies any pain or itching. Denies there has been any drainage. No open areas noted. Rudolph has a history of skin cancer. Endorses being in the sun [employer]. Has tried OTC ointment that he purchased- does not know what it is called nor brand name. States that the pintemn is makig it less red. Howver he is concerned and did not want to wait until next PCP appointment in April to have it looked at. Defer to PCP if he would like to place telederm consult or wou;d like to see Vet sooner (this would have to be an overbook appointment) /kaylynn/ Tsering Reardon RN Primary Care Staff Nurse Signed: 01/22/2024 10:05 Receipt Acknowledged By: 01/22/2024 11:51 /kaylynn/ SKYLAR GREGORY MD PHYSICIAN 01/22/2024 ADDENDUM STATUS: COMPLETED Suicide Screen: C-SSRS Screening [place] Suicide Severity Rating Scale (C-SSRS) screener 1. Over the past month, have you wished you were or wished you could go to sleep and not wake up? No 2. Over the past month, have you had any actual thoughts of killing yourself? No 3. Over the past month, have you been thinking about how you might do this? Response not required due to responses to other questions. 4. Over the past month, have you had these thoughts and had some intention of acting on them? Response not required due to responses to other questions. 5. Over the past month, have you started to work out or worked out the details of how to kill yourself? Response not required due to responses to other questions. 6. If yes, at any time in the past month did you intend to carry out this plan? Response not required due to responses to other questions. 7. In your lifetime, have you ever done anything, started to do anything, or prepared to do anything to end your life (for example, collected pills, obtained a gun, gave away valuables, went to the roof but didn't jump)? No 8. If YES, was this within the past 3 months? Response not required due to responses to other questions. Influenza Immunization: The patient has received the seasonal influenza vaccine for the current season at another location. Documented: INFLUENZA, UNSPECIFIED FORMULATION Historical Date Administered: Jan 09, 2024 Outside Location: Outside Healthcare Provider Information Source: SOURCE UNSPECIFIED /kaylynn/ Tsering Reardon RN Primary Care Staff Nurse Signed: 01/22/2024 10:06 TSERING REARDON [facility]
--- OUTSIDE RECORDS SUMMARY | 2024-04-15 23:04 | XMS_ITS ---
Author Name [facility] [place] [facility] [place] [facility] [place] Address [address] [place] [address] Care Team Providers Care Band Splicer Name Role Phone SKYLAR GREGORY Primary Care [...] MEDICARE ADVANTAGE MCR (WNR) May 07, 2017 [id number] MILLIE AG SR PATIENT Selected Encounter This section includes the information on record at [place] for the Encounter. Date/Time Encounter Type Encounter Description Reason Provider Source Dec 25, 2023 08:30 AM DETERMINE REFRACTIVE STATE OPTOMETRY ICD-10-CM E11.9 Type 2 diabetes mellitus without complications YOLI SOSA [facility] Encounter Template Text not used by [place] Assessments - Encounter Diagnoses This section includes the primary and secondary diagnoses documented for the Encounter. Date/Time Primary/Secondary Diagnosis Diagnosis Name Provider Source Dec 25, 2023 09:34 AM PRIMARY Type 2 diabetes mellitus without complications [facility] [place] [facility] Dec 25, 2023 09:34 AM SECONDARY Dry eye syndrome of bilateral lacrimal glands OYLI SOSA [facility] [place] [facility] Dec 25, 2023 09:34 AM SECONDARY Presbyopia SOSA,YOLI Bailey [facility] [place] [facility] Dec 25, 2023 09:34 AM SECONDARY Presence of intraocular lens SOSA,YOLI Bailey [facility] [place] [facility] Dec 25, 2023 09:34 AM SECONDARY Puckering of macula, left eye SOSA,YOLI Bailey [facility] Dec 25, 2023 09:34 AM SECONDARY Unspecified retinal break, left eye SOSA,[facility]OLI [facility] Plan of Treatment: Future Appointments (+ 6 months) and Future Tests (+/- 45 days) The Plan of Treatment section includes future care activities for the patient [facility] all [place] [facility] This section includes future appointments and future orders which are active, pending or scheduled. Future Appointments This section includes appointments that were scheduled to occur 6 months from the date of the Encounter, up to a maximum of 20 appointments. The data comes from all [place] treatment facilities. Appointment Date/Time Appointment Type Appointme nt Facility Name Jan 22, 2024 09:30 AM AMBULATORY - MEDICINE [facility] [place] [facility] Feb 07, 2024 02:00 PM AMBULATORY - NONE [facility] Feb 07, 2024 03:00 PM AMBULATORY - MEDIC[facility] Apr 17, 2024 10:00 AM AMBULATORY - [facility] Jun 09, 2024 10:00 AM [facility] Active, Pending, and Scheduled Orders This section includes a listing of several types of active, pending, and scheduled orders, including clinic medications orders, diagnostic test orders, procedure orders and consult orders; where the start date of the order is 45 days before the date of the Encounter or 45 days after the date of theEncounter. The data comes from all [place] treatment facilities. Test Date/Time Test Type Test Details Facility Name Feb 08, 2024 08:25 AM Consult Order DERMATOLOG Y/NHM (OUTPT) Cons Burnishing Machine Operator's Choice [facility] Social History: Smoking Status (Most current) and Tobacco Use (All prior to encounter date) This section includes the most current, and the historical, smoking and tobacco- related health factors from the [place] facility where the Encounter took place. Current Smoking Status This section includes the most current smoking, or tobacco-related health factor, from the [place] facility where the Encounter took place. Date/Time Current Smoking Status Comment Facil it May 03, 2023 09:30 AM VA-TOBACCO QUIT 15 YRS OR MORE [place] [facility] [place] [facility] Tobacco Use History This section includes a history of the smoking, or tobacco-related health factors, that were collected on or before the date of the Encounter. The data comes from the [place] facility where the Encounter took place. Date/Time Smoking Status/Tobac co Use Comment Facility May 03, 2023 09:30 AM VA-TOBACCO QUIT 15 YRS OR MORE [place] [facility] [place] [facility] Oct 26, 2021 10:00 AM VA-TOBACCO FORMER USER [facility] [place] [facility] Oct 26, 2021 10:00 AM VA-TOBACCO QUIT 15 YRS OR MORE [place] [facility] [place] [facility] Aug 19, 2020 08:30 AM VA-TOBACCO FORMER USER [place] [facility] [place] [facility] Aug 19, 2020 08:30 AM VA-TOBACCO QUIT 15 YRS OR MORE [place] [facility] [place] [facility] May 21, 2018 09:36 AM VA-TOBACCO FORMER USER [place] [facility] [facility] May 21, 2018 09:36 AM VA-TOBACCO QUIT 15 YRS OR MORE [place] [facility] [place] [facility] May 21, 2018 08:51 AM VA-TOBACCO NEVER USED [place] [facility] [facility] May 09, 2017 09:38 AM QUIT TOBACCO USE > 7 YEARS AGO quit 35 yrs ago [facility] [place] [facility] May 09, 2016 09:45 AM LIFETIME NON-TOBACCO USER [facility] [place] [facility] May 06, 2015 08:02 AM QUIT TOBACCO USE > 7 YEARS AGO pt states he stopped smoking 20 yrs ago [facility] [place] [facility] Apr 05, 2009 02:04 PM QUIT TOBACCO USE > 7 YEARS AGO QUIT 15 YEARS AGO [place] [facility] [place] [facility] Encounter Notes: All associated encounter notes This section contains the clinical notes associated to the Encounter. Date/Time Encounter Note(s) Provider Source Dec 25, 2023 07:32 AM OPTOMETRY NOTE: LOCAL TITLE: OPTOMETRY NOTE STANDARD TITLE: OPTOMETRY NOTE DATE OF NOTE: DEC 25, 2023@07:32 ENTRY DATE: DEC 25, 2023@07:32:33 AUTHOR: DARCY SUH COSIGNER: YOLI SOSA URGENCY: STATUS: COMPLETED OPTOMETRY NOTE Has ADDENDA Active problems - Computerized Problem List is the source for the followin. Numbness of hand 2. Low Back Pain (SCT 064345909) 3. Diabetes Mellitus Type 2 (SCT 25069770) 4. Microalbuminuria due to type 2 diabetes mellitus 5. Chronic kidney disease due to type 2 diabetes mellitus 6. Abnormal vision 7. Benign Prostatic Hypertrophy Without Outflow Obstruction (SCT 600001295) 8. Essential hypertension 9. Hypothyroidism (SNOMED CT 32285519) 10. Transient Ischemic Attack 11. HLD - Hyperlipidemia 12. Hearing loss (SNOMED CT 34378141) Active Outpatient Medications (including Supplies): Active Non-VA [...] TAB 2MG BY MOUTH ONCE DAILY ACTIVE Allergies: Patient has answered NKA All medications including those prescribed by outside VA's, community providers, and all OTC meds were reviewed and reconciled with patient to the best of their abilities. This 88 year old MALE is seen today for CEE Chief Complaint: Pt presents with c/o blurry vision OS that has not gotten worse over past year. Ocular comfort is good, pt has been using ATs BID. Ran out of ATs and would like a new Rx. Pt denies flashes but notes a little blue [place] in center of vision that is very rare. Pt reports that he had surgery OS that was screwed up . Last A1C from 2022, pt does not know most recent A1C. BS this morning was 116. Pt checks BS every day. Dx of DM was 15 years ago. No pertinent family hx reported today. OHx: -ERM OS -Type II DM without ocular complications OU -Dry Eye Syndrome OU -Hx of retinal break OS s/p laser 360 -Pseudophakia OU -Ref Error and Presbyopia OU (-) Pain: (-) KINSEY: (-) Diplopia: (-) Flashes: (+) Floaters: longstanding and rare (-) Amaurosis Fugax/Tia's: (-) Eye Injury: (+) Eye Surgery: CE OU, PPV OS 2010, Retinal break s/p repair OS (-) TBI FOHx: (-) Glaucoma/ARMD/Blindness VITALS (most recent, as listed in the electronic record): B/P: 125/68 (05/03/2023 09:44) Pulse: 75 (05/03/2023 09:44) Temperature: 98 F [36.7 C] (08/09/2022 09:28) Weight: 173 lb [78.47 kg] (05/03/2023 09:44) Height: 66 in [167.6 cm] (10/26/2021 09:53) BMI: BMI: 28.0 PERTINENT LABS: HEMOGLOBIN A1C TREND Collection DT Spec HGBA1c 08/09/2022 10:56 BLOOD 5.7 H 02/06/2022 09:51 BLOOD 6.7 H 08/24/2021 11:21 BLOOD 7.4 H 08/23/2020 13:37 BLOOD 7.8 H 10/10/2010 07:14 BLOOD 6.5 H (-) Smoker/Length of Time/PPD: quit 40 years ago Current Rx with last BCVA: OD: +2.25-2.32m976 20/20+2 OS: +3.00-1.27l003 20/25-2 Add: +2.75 DVA ( )sc ( x )cc phoropter OD: 20/20 OS: 20/50+1 PH: 20/50+2 Pupils: PERRL (-)APD EOMs: SAFE OU, (-)Pain/Diplopia CVF (facial, peripheral): FTFC OU Subjective Refraction: OD: +2.25-2.29t842` 20/20 OS: +3.00-1.05j299 20/50+1 Add: +2.75 All the above performed by student, reviewed by attending Anterior segment: Performed by student, repeated by attending Lids: MGD OU Conj: white and quiet OU Cornea: temp post-sx scarring AC: 1:1 T&N and quiet OU Iris: flat and clear OU Lens: PCIOL well-centered and clear OD, peripheral PCO OS Tonometry: Nicole Performed by student, reviewed by attending OD 20 mmHg OS 19 mmHg Time: 8:19am Fundus exam: Dilated: 8:20am Dilating Drops: 1GTT 1 % Tropicamide OU & 1GTT 2.5% Phenylephrine OU(Pt. ed. on side effects, dilation warning given and verbal consent obtained) Patient advised not to drive if they feel they have any symptoms which could affect their ability to drive safely. Patient advised not to engage in any activities which could put themselves or others at risk if they feel they have any symptoms which could affect their ability to perform those activities safely. Performed by student, repeated by attending Vit: PVD OD, clear OS C/D: 0.10/0.10 OD, 0.10/0.10 OS Disc: OD: pink and distinct (-) NVD OS: pink and distinct (-) NVD Macula: flat and clear OD, moderate ERM OS PPole: OD: clear (-) NVE/DBH/CWS/JAQUAN/exudates OS: clear (-) NVE/DBH/CWS/JAQUAN/exudates Vessels: OD: 1/2 and mildly tortuous (-)venous beading OS: 1/2 and mildly tortuous (-)venous beading Periph: flat and intact OD, laser scarring with chorioretinal atrophy and associated pigment 360 OS (-)holes, tears, detachments 360 OU Assessment/Plan: 1. Type II Diabetes without evidence of retinopathy or macular edema OU. - Last A1c unknown by pt - Pt ed on today's findings and the possible ocular health and visual complications associated with diabetes as well as importance of attending follow up appts - Encouraged pt to monitor blood sugar and continue taking medications as prescribed by their PCP - Pt ed to call immediately if experiencing any sudden changes in vision - RTC 1 year for CEE 2. Epiretinal Membrane OS -previously sent to retina and it was decided to observe for time being -MAC OCT reveals progressed ERM OS -BCVA 20/50+1 OS -educated pt on exam findings and cause of decreased vision, discussed option of referral to retinal specialist for consult. Pt opts to defer retinal consult for time being, will call for referral if his decreased vision OS begins to interfere with ADLs -Defer retinal referral for time being -RTC 1 year for CEE 3. H/O retinal break s/p laser 360 -stable to last exam -monitor at CEE 4. Pseudophakia OU -progressed PCO OS that is contributing to decreased BCVA OS -monitor at CEE 5. Dry Eye Syndrome OU -pt asymptomatic with ATs BID -continue with ATs QID OU -order ATs 1 gtt QID OU to be mailed to pt -monitor at CEE 6. Pseudophakia OU -stable OU, peripheral PCO not interfering with BCVA OS -monitor at CEE 7. Hyperopia with astigmatism and presbyopia OU -no change in refraction today -Spec Rx updated, pt defers new specs at this time -monitor at CEE Return to Clinic 1 year or earlier PRN Patient Education: Diabetes: Patient was educated regarding diabetes and related ocular complications including retinopathy and cataract formation as well as other related systemic complications. The importance of good blood sugar control, blood sugar testing as recommended by their PCP and the importance of timely follow upwere all emphasized. Medication Reconciliation: Outpatient: Has the patient been taking medications as documented in the EMLR? YES: The patient has been taking medications as documented in the EMLR. Essential Medication List for Review used to complete this medication reconciliation. INCLUDED IN THIS LIST: Alphabetical list of active outpatient prescriptions dispensed from this VA (local) and dispensed from another [place] or [facility] facility (remote) as well as inpatient orders [...] whether with a VA or non-VA provider. Medication List: JLV Link Data on this list may not be complete. Please check JLV. Allergies/ADRs (Tool #5) FACILITY ALLERGY/ADR -------- No Remote Allergy/ADR Data available for this patient [place] [facility] [place] [facility] No Known Allergies Med. Reconciliation (Tool #1) INCLUDED IN THIS LIST: Alphabetical list of active outpatient prescriptions dispensed from this VA (local) and dispensed from another [place] or [facility] facility (remote) as well as inpatient orders (local pending and active), local clinic medications, locally documented non-VA medications, and local prescriptions that have or been discontinued in the past 90 days. Non-VA Meds Last Documented On: Aug 19, 2020 NOTE The display of VA prescriptions dispensed from another [place] or [facility] facility (remote) is limited to active outpatient prescription entries matched to National Drug File at the originating site and may not include some items such as investigational drugs, compounds, etc. NOT INCLUDED IN THIS LIST: Medications self-entered by the patient into personal health records (i.e. [employer]) are NOT included in this list. Non-VA medications documented outside this [place], remote inpatient orders (regardless of status) and remote clinic medications are NOT included in this list. The patient and provider must always discuss medications the patient is taking, regardless of where the medication was dispensed or obtained. Non-VA AMLODIPINE BESYLATE 10MG TAB TAKE ONE TABLET BY MOUTH ONCE DAILY Medication prescribed by Non-VA provider. OUTPT CARBOXYMETHYLCELLULOSE NA 0.5% OPH SOLN (Status = Pending) INSTILL ONE DROP INTO EACH EYE FOUR TIMES A DAY Login Date: 12/25/23 Qty/Days Supply: Refills Ordered: 3 Non-VA FUROSEMIDE 20MG TAB TAKE ONE TABLET BY MOUTH ONCE DAILY Medication prescribed by Non-VA provider. Non-VA GLIPIZIDE 5MG TAB TAKE ONE TABLET BY MOUTH Medication prescribed by Non-VA provider. Non-VA LEVOTHYROXINE NA (SYNTHROID) 137MCG TAB TAKE ONE TABLET BY MOUTH daily Medication prescribed by Non-VA provider. Non-VA LISINOPRIL 20MG TAB TAKE ONE TABLET BY MOUTH ONCE DAILY Medication prescribed by Non-VA provider. Non-VA METOPROLOL SUCCINATE 100MG SA TAB TAKE ONE TABLET BY MOUTH ONCE DAILY Medication prescribed by Non-VA provider. Non-VA PRAVASTATIN NA 40MG TAB TAKE ONE TABLET BY MOUTH AT BEDTIME Medication prescribed by Non-VA provider. Non-VA WARFARIN (NON-VA) TAB TAKE 2MG BY MOUTH ONCE DAILY Medication prescribed by Non-VA provider. SUPPLIES PHARMACY TERMS AND POSSIBLE PATIENT ACTIONS INPT = [place] inpatient order IV = [place] intravenous medication OUTPT = [place] outpatient prescription PHARMACY POSSIBLE PATIENT TERMS EXPLANATION ACTIONS -------- - ACTIVE A prescription that can be If you have refills, filled at the local [place] pharmacy. you may request a refill of this prescription from your [place] pharmacy. CLINIC A medication you received during If you have questions a visit to a [place] clinic or about this medication emergency department. contact your [place] healthcare team. DISCONTINUED A prescription your provider has Contact your VA stopped. It is no longer healthcare team if you available to be sent to you or need more of this picked up at the [place] pharmacy medication. window. A prescription which is too old Contact your VA to fill. This does not refer to healthcare team if you the expiration date of the need more of this medication in the container. medication. NON-VA A medication that came from If this medication someplace other than a VA information is pharmacy. This may be a incorrect or out of prescription from either the VA date, please tell your or non VA providers that was VA healthcare team. filled outside the VA. Or, it may be an [id number] (OTC), herbal, dietary supplements or sample medication. ON HOLD An active prescription that will Contact your VA not be filled until pharmacy pharmacy when you need resolves the issue. more of this medication. PARKED An active prescription that will Contact your VA not be filled until the patient pharmacy when you need requests it. this medication. PENDING This prescription order has been If you have been sent to the pharmacy for review instructed to start and is not ready yet. this medication now, contact your VA pharmacy. SUSPENDED An active prescription that is Contact your VA not scheduled to be filled yet. pharmacy if you need You should receive it before this medication now. you run out. ==== (x) Printed Medication Reconciliation List Offered and Declined by () Medication Reconciliation List Printed for at Exam () Optometry HT Please Print and Mail Copy of Medication Reconciliation List () AMSA Please Print and Mail Copy of Medication Reconciliation List /kaylynn/ DARCY SUH OPTOMETRY STUDENT Signed: 12/25/2023 11:09 /kaylynn/ YOLI SOSA OD DOOR LINER HELPER Cosigned: 12/25/2023 11:15 12/25/2023 ADDENDUM STATUS: COMPLETED The optometry food and beverage intern participated in this exam, I saw this in conjunction with the optometry student. The entrance tests and refraction were performed by the student and reviewed by me. I personally met with the patient, confirmed the hisory, complaints and the student's findings, and performed slit lamp and fundus evaluation as indicated. I reviewed and agree with the stated findings, assessment and plan. I have added/edited the documentation to reflect my exam findings and changes to the assessment and plan. Ed re today's findings. repeated back the plan and education. All reminders completed by attending and documented in student note. /kaylynn/ YOLI J SOSA, OD DOOR LINER HELPER Signed: 12/25/2023 11:15 DARCY SUH CNTRLynn [facility] [place] [facility]
--- OUTSIDE RECORDS SUMMARY | 2024-04-15 23:04 | XMS_ITS | Encounter Summary ---
Author Name [facility] [place] Organization [facility] [place] Address [address] [place] [address] Care Team Providers Care Licensed Home Inspector Name Role Phone SKYLAR GREGORY Primary Care [...] Witt's Name Patient's Relationship to Policy Witt [facility] (WNR) MEDICARE ADVANTAGE [facility] (WNR) May 07, 2017 [id number] MILLIE AG SR PATIENT Selected Encounter This section includes the information on record at [place] for the Encounter. Date/Time Encounter Type Encounter Description Reason Pro vider Source Jan 09, 2024 12:00 AM Outpatient Encounter EVENT (HISTORICAL) IHE Encounter Template Text not used by [place] Plan of Treatment: Future Appointments (+ 6 [...] 20 appointments. The data comes from all [place] treatment facilities. Appointment Date/Time Appointment Type Appointme nt Facility Name Jan 22, 2024 09:30 AM AMBULATORY - MEDICINE [facility] [place] [facility] Feb 07, 2024 02:00 PM AMBULATORY - NONE [place] [facility] [place] [facility] Feb 07, 2024 03:00 PM AMBULATORY - MEDICINE [facility] [place] [facility] Apr 17, 2024 10:00 AM AMBULATORY - MEDICINE [facility] [place] [facility] Jun 09, 2024 10:00 AM [facility]ULAT[facility] - [facility] Active, Pending, and Scheduled Orders This section includes a listing of several types of active, pending, and scheduled orders, including clinic medications orders, diagnostic test orders, procedure orders and consult orders; where the start date of the order is 45 days before the date of the Encounter or 45 days after the date of theEncounter. The data comes from all [place] treatment facilities. Test Date/Time Test Type Test Details Facility Name Feb 08, 2024 08:25 AM Consult Order DERMATOLOG Y/NHM (OUTPT) Cons Appliance Repair Technician's Choice [facility] Immunizations: All administered on the encounter date This section contains immunizations associated to the Encounter. Immunization Series Date Issued Reaction Comments INFLUENZA, UNSPECIFIED FORMULATION Jan 09, 2024 Social History: Smoking Status (Most current) and Tobacco Use (All prior to encounter date) This section includes the most current, and the historical, smoking and tobacco- related health factors from the [place] facility where the Encounter took place. Current Smoking Status This section includes the most current smoking, or tobacco-related health factor, from the [place] facility where the Encounter took place. Date/Time Current Smoking Status Comment [facility] May 03, 2023 09:30 AM VA-TOBACCO [facility] Tobacco Use History This section includes a history of the smoking, or tobacco-related health factors, that were collected on or before the date of the Encounter. The data comes from the [place] facility where the Encounter took place. Date/Time Smoking Status/Tobac co Use Comment Facility May 03, 2023 09:30 AM VA-TOBACCO QUIT 15 YRS OR MORE [facility] Oct 26, 2021 10:00 AM VA-TOBACCO [facility] [place] [facility] Oct 26, 2021 10:00 AM VA-TOBACCO QUIT 15 YRS OR MORE [place] [facility] [place] [facility] Aug 19, 2020 08:30 AM VA-TOBACCO FORMER USER [place] [facility] [place] [facility] Aug 19, 2020 08:30 AM VA-TOBACCO QUIT 15 YRS OR MORE [place] [facility] [place] [facility] May 21, 2018 09:36 AM VA-TOBACCO FORMER USER [place] [facility] [place] [facility] May 21, 2018 09:36 AM VA-TOBACCO QUIT 15 YRS OR MORE [place] [facility] [place] [facility] May 21, 2018 08:51 AM VA-TOBACCO NEVER USED [place] [facility] [place] [facility] May 09, 2017 09:38 AM QUIT TOBACCO USE > 7 YEARS AGO quit 35 yrs ago [place] [facility] [place] [facility] May 09, 2016 09:45 AM LIFETIME NON-TOBACCO USER [place] [facility] [place] [facility] May 06, 2015 08:02 AM QUIT TOBACCO USE > 7 YEARS AGO pt states he stopped smoking 20 yrs ago [place] [facility] [place] [facility] Apr 05, 2009 02:04 PM QUIT TOBACCO USE > 7 YEARS AGO QUIT 15 YEARS AGO [place] [facility] [place] [facility]
--- OUTSIDE RECORDS SUMMARY | 2024-04-15 23:04 | XMS_ITS ---
Author Name [facility] [place] Organization [facility] [place] Address [address] [place] [address] Care Team Providers Care Websphere Architect Name Role Phone SKYLAR GREGORY Primary Care [...] Witt's Name Patient's Relationship to Policy Witt [facility] [place] MEDICARE ADVANTAGE [facility] (WNR) May 07, 2017 [id number] MILLIE AG SR PATIENT Selected Encounter This section includes the information on record at [place] for the Encounter. Date/Time Encounter Type Encounter Description Reason Provider Source Dec 25, 2023 09:00 AM CPTR OPHTH DX IMG POST SEGMT OPTOMETRY ICD-10-CM 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, left eye SOSA,[facility]OLI [facility] Encounter Template Text not used by VA Assessments - Encounter Diagnoses This section includes the primary and secondary diagnoses documented for the Encounter. Date/Time Primary/Secondary Diagnosis Diagnosis Name Provider Source Dec 25, 2023 09:35 AM PRIMARY Puckering of macula, left eye YOLI SOSA [place] [facility] [place] [facility] Plan of Treatment: Future Appointments (+ 6 months) and Future Tests (+/- 45 days) The Plan of Treatment section includes future care activities for the patient from [facility] This section includes future appointments and future orders which are active, pending or scheduled. Future Appointments This section includes appointments that were scheduled to occur 6 months from the date of the Encounter, up to a maximum of 20 appointments. The data comes from all [facility]. Appointment Date/Time Appointment Type Appointme nt Facility Name Jan 22, 2024 09:30 AM AMBULATORY - MEDICINE [facility] NTR [facility] Feb 07, 2024 02:00 PM [facility] Feb 07, 2024 03:00 PM AMBULATORY - MEDICINE [facility] NTR [facility] Apr 17, 2024 10:00 AM [facility] Jun 09, 2024 10:00 AM AMBULATORY - MEDICINE [facility] Active, Pending, and Scheduled Orders This section includes a listing of several types of active, pending, and scheduled orders, including clinic medications orders, diagnostic test orders, procedure orders and consult orders; where the start date of the order is 45 days before the date of the Encounter or 45 days after the date of theEncounter. The data comes from all [facility]. Test Date/Time Test Type Test Details Facility Name Feb 08, 2024 08:25 AM Consult Order DERMATOLOG Y/NHM (OUTPT) Cons Procedure Manager's Choice [facility] Social History: Smoking Status (Most current) and Tobacco Use (All prior to encounter date) This section includes the most current, and the historical, smoking and tobacco- related health factors from the [place] facility where the Encounter took place. Current Smoking Status This section includes the most current smoking, or tobacco-related health factor, from the [place] facility where the Encounter took place. Date/Time Current Smoking Status Comment Facil ity May 03, 2023 09:30 AM [place]-TOBACCO QUIT 15 YRS OR MORE [facility] Tobacco Use History This section includes a history of the smoking, or tobacco-related health factors, that were collected on or before the date of the Encounter. The data comes from the [place] facility where the Encounter took place. Date/Time Smoking Status/Tobac co Use Comment Facility May 03, 2023 09:30 AM VA-TOBACCO QUIT 15 YRS OR MORE [facility] [place] [facility] Oct 26, 2021 10:00 AM VA-TOBACCO FORMER USER [facility] [place] [facility] Oct 26, 2021 10:00 AM VA-TOBACCO QUIT 15 YRS OR MORE [facility] [place] [facility] Aug 19, 2020 08:30 AM VA-TOBACCO FORMER USER [facility] [place] [facility] Aug 19, 2020 08:30 AM VA-TOBACCO QUIT 15 YRS OR MORE [facility] [place] [facility] May 21, 2018 09:36 AM VA-TOBACCO FORMER USER [facility] [place] [facility] May 21, 2018 09:36 AM VA-TOBACCO QUIT 15 YRS OR MORE [place] [facility] [place] [facility] May 21, 2018 08:51 AM VA-TOBACCO NEVER USED VA [facility] [place] [facility] May 09, 2017 09:38 AM QUIT TOBACCO USE > 7 YEARS AGO quit 35 yrs ago VA [facility] [place] [facility] May 09, 2016 09:45 AM LIFETIME NON-TOBACCO USER [facility] [place] [facility] May 06, 2015 08:02 AM QUIT TOBACCO USE > 7 YEARS AGO pt states he stopped smoking 20 yrs ago [facility] [place] [facility] Apr 05, 2009 02:04 PM QUIT TOBACCO USE > 7 YEARS AGO QUIT 15 YEARS AGO [place] [facility] [place] [facility] Encounter Notes: All associated encounter notes This section contains the clinical notes associated to the Encounter. Date/Time Encounter Note(s) Provider Source Dec 25, 2023 09:06 AM OPTOMETRY CONSULT: LOCAL TITLE: CONSULT REPORT/OPTOMETRY OCT STANDARD TITLE: OPTOMETRY CONSULT DATE OF NOTE: DEC 25, 2023@09:06 ENTRY DATE: DEC 25, 2023@09:06:27 AUTHOR: DARCY SUH EXP COSIGNER: YOLI SOSA URGENCY: STATUS: COMPLETED CONSULT REPORT/OPTOMETRY OCT Has ADDENDA Macula OCT report: Macula OCT reviewed for patient with epiretinal membrane OS OD: Signal strength 8/10, normal foveal contour, (-)SRF/IRF, inf quadrant 272um, nasal quadrant 292um, temporal quadrant 268um, superior quadrant 265um OS: Signal strength 6/10, disrupted foveal contour with inf submacular thickening, (-)SRF/IRF, inf quadrant 427um, nasal quadrant 342 um, temporal quadrant 311um, superior quadrant 295um. A/P: Epiretinal membrane OS. Mac OCT reveals clear macula OD and epiretinal membrane OS with inf submacular thickening and disrupted foveal contour. Pt's vision OS has decreased since WILBER 1 year ago, BCVA now 20/50+1 OS. Fundus exam reveals moderate epiretinal membrane OS. Educated pt on exam findings including that specs will not improve vision OS, discussed option of referring for retinal consult for treatment options. Pt defers retinal referral at this time, will call if decreased vision OS begins to affect ADLs. RTC 1 year for CEE. /kaylynn/ DARCY SUH OPTOMETRY STUDENT Signed: 12/25/2023 10:53 /kaylynn/ YOLI SOSA OD FIELD CROP HARVEST CONTRACTOR Cosigned: 12/25/2023 11:15 12/25/2023 ADDENDUM STATUS: COMPLETED The optometry internet and e business project manager participated in this exam. I saw this in conjunction with the optometry student. The visual images were captured by the optometry health cooling tower technician. Results of testing assessed by the student and reviewed by myself. 's history, complaints and student's findings and plan reviewed. I reviewed and agree with the stated findings, assessment and plan. I have added/edited the documentation to reflect my exam findings and changes to the assessment and plan. /kaylynn/ YOLI SOSA OD FIELD CROP HARVEST CONTRACTOR Signed: 12/25/2023 11:15 DARCY SUH [place] [facility]
--- OUTSIDE RECORDS SUMMARY | 2024-04-15 23:05 | XMS_ITS ---
Author Name [facility] [place] [facility] [place] Organization [facility] [place] Address [address] [place] [id number] Care Team Providers Care Senior Construction Manager Name Role Phone SKYLAR GREGORY Primary [...] Name Patient's Relationship to Policy Witt [facility] (WNR) MEDICARE ADVANTAGE [facility] (WNR) May 07, 2017 [id number] [phone] MILLIE AG SR PATIENT Selected Encounter This section includes the information on record at [place] for the Encounter. Date/Time Encounter Type Encounter Description Reason Provider Source Feb 07, 2024 02:00 PM UNLISTED SPEC DERM SVC/PX DERMATOLOGY ICD-10-CM Z13.89 Encounter for screening for other disorder RAISA HAIR [facility] Encounter Template Text not used by [place] Assessments - Encounter Diagnoses This section includes the primary and secondary diagnoses documented for the Encounter. Date/Time Primary/Secondary Diagnosis Diagnosis Name Provider Source Feb 07, 2024 02:32 PM PRIMARY Encounter for screening for other disorder [facility]IR [facility] [place] [facility] Plan of Treatment: Future Appointments (+ 6 months) and Future Tests (+/- 45 days) The Plan of Treatment section includes future care activities for the patient [facility] [place] [facility] This section includes future appointments and future orders which are active, pending or scheduled. Future Appointments This section includes appointments that were scheduled to occur 6 months from the date of the Encounter, up to a maximum of 20 appointments. The data comes from all [facility]. Appointment Date/Time Appointment Type Appointme nt Facility Name Apr 17, 2024 10:00 AM [facility] Jun 09, 2024 10:00 AM AMBULATORY - MEDICINE [facility] Active, Pending, and Scheduled Orders This section includes a listing of several types of active, pending, and scheduled orders, including clinic medications orders, diagnostic test orders, procedure orders and consult orders; where the start date of the order is 45 days before the date of the Encounter or 45 days after the date of theEncounter. The data comes from all [facility]. Test Date/Time Test Type Test Details Facility Name Feb 08, 2024 08:25 AM Consult Order DERMATOLOG Y/NHM (OUTPT) Cons Cold Roller's Choice [facility] Social History: Smoking Status (Most current) and Tobacco Use (All prior to encounter date) This section includes the most current, and the historical, smoking and tobacco- related health factors from the [place] facility where the Encounter took place. Current Smoking Status This section includes the most current smoking, or tobacco-related health factor, from the [place] facility where the Encounter took place. Date/Time Current Smoking Status Comment Luís mustafa May 03, 2023 09:30 AM [place]-TOBACCO QUIT 15 YRS OR MORE [facility] Tobacco Use History This section includes a history of the smoking, or tobacco-related health factors, that were collected on or before the date of the Encounter. The data comes from the [place] facility where the Encounter took place. Date/Time Smoking Status/Tobac co Use Comment Facility May 03, 2023 09:30 AM [place]-TOBACCO QUIT 15 YRS OR MORE [facility] Oct 26, 2021 10:00 AM VA-TOBACCO FORMER USER [facility] Oct 26, 2021 10:00 AM VA-TOBACCO QUIT 15 YRS OR MORE [place] [facility] [place] [facility] Aug 19, 2020 08:30 AM VA-TOBACCO FORMER USER VA [facility] [facility] Aug 19, 2020 08:30 AM VA-TOBACCO QUIT 15 YRS OR MORE [place] [facility] [place] [facility] May 21, 2018 09:36 AM VA-TOBACCO FORMER USER [facility] [place] [facility] May 21, 2018 09:36 AM VA-TOBACCO QUIT 15 YRS OR MORE [place] [facility] [place] [facility] May 21, 2018 08:51 AM VA-TOBACCO NEVER USED VA [facility] [place] [facility] May 09, 2017 09:38 AM QUIT TOBACCO USE > 7 YEARS AGO quit 35 yrs ago VA [facility] [place] [facility] May 09, 2016 09:45 AM LIFETIME NON-TOBACCO USER [facility] [place] [facility] May 06, 2015 08:02 AM QUIT TOBACCO USE > 7 YEARS AGO pt states he stopped smoking 20 yrs ago [facility] [place] [facility] Apr 05, 2009 02:04 PM QUIT TOBACCO USE > 7 YEARS AGO QUIT 15 YEARS AGO [place] [facility] [place] [facility] Encounter Notes: All associated encounter notes This section contains the clinical notes associated to the Encounter. Date/Time Encounter Note(s) Provider Source Feb 21, 2024 02:50 PM ADDENDUM: LOCAL TITLE: Addendum STANDARD TITLE: ADDENDUM DATE OF NOTE: FEB 21, 2024@14:50:03 ENTRY DATE: FEB 21, 2024@14:50:04 AUTHOR: RAISA HAIR COSIGNER: URGENCY: STATUS: COMPLETED Pt called asking to go over his results please call # on file. /es/ RAISA HAIR TELEHEALTH CLINICAL MAJOR GIFTS DIRECTOR Signed: 02/21/2024 14:51 Receipt Acknowledged By: 02/21/2024 16:20 /kaylynn/ SKYLAR GREGORY MD PHYSICIAN --- Original Document --- 02/08/24 PATIENT NOTIFICATION TELEHEALTH RESULTS: Provided below are the results from pts telederm imaging reading. Ordering Provider is responsible to give pt the results and prescribe any treatments, recommendations or consult to dermatology for a face to face etc. REMOTE RESULTS JESUS Document from: [facility] Associated on: Feb 08, 2024@07:43:48 LOCAL TITLE: CONSULT-TELEDERMATOLOGY IMAGING REPORT STANDARD TITLE: TELEIMAGING REPORT DATE OF NOTE: FEB 08, 2024@07:40 ENTRY DATE: FEB 08, 2024@07:40:43 AUTHOR: RONAL KENDRICK EXP COSIGNER: URGENCY: STATUS: COMPLETED HISTORY: 88-year-old male presents for evaluation of lesions on the right and left temples. These have been present for about 3 to 4 months and are itchy. 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 He denies a family history of melanoma. OVERALL CONSULT/IMAGE QUALITY: Fully satisfactory EXAM: Photographs show pink, scaly papules on the right zygomatic cheek, right scapha of the ear, left zygomatic cheek, left quaker IMPRESSION BASED ON IMAGES AND INFORMATION REVIEWED: PROBLEM A: Diagnosis: Actinic Keratosis RECOMMENDATIONS FOR REFERRING PROVIDER: PROBLEM A: Liquid nitrogen cryotherapy: TIME-SENSITIVITY: No time-sensitive, urgent, emergent or life-threatening results. RECOMMENDED FOLLOW-UP (Include Clinically Indicated Date (JEFFREY)): Consult to Dermatology clinic for follow up JEFFREY: Routine Cumulative time of review and management: 5 minutes or more /jannette Kendrick PA-C Dermatology Signed: 02/08/2024 07:43 * END OF REMOTE RESULTS /es/ RAISA HAIR TELEHEALTH CLINICAL MAJOR GIFTS DIRECTOR Signed: 02/08/2024 08:15 Receipt Acknowledged By: 02/08/2024 08:21 /es/ SKYLAR GREGORY MD PHYSICIAN RAISA HAIR [place] [facility] [place] [facility] Feb 08, 2024 08:13 AM TELEHEALTH NOTE: LOCAL TITLE: PATIENT NOTIFICATION TELEHEALTH RESULTS STANDARD TITLE: TELEHEALTH NOTE DATE OF NOTE: FEB 08, 2024@08:13 ENTRY DATE: FEB 08, 2024@08:14:01 AUTHOR: RAISA HAIR EXP COSIGNER: URGENCY: STATUS: COMPLETED PATIENT NOTIFICATION TELEHEALTH RESULTS Has ADDENDA Provided below are the results from pts telederm imaging reading. Ordering Provider is responsible to give pt the results and prescribe any treatments, recommendations or consult to dermatology for a face to face etc. REMOTE RESULTS JESUS Document from: [facility] Associated on: Feb 08, 2024@07:43:48 LOCAL TITLE: CONSULT-TELEDERMATOLOGY IMAGING REPORT STANDARD TITLE: TELEIMAGING REPORT DATE OF NOTE: FEB 08, 2024@07:40 ENTRY DATE: FEB 08, 2024@07:40:43 AUTHOR: RONAL KENDRICK EXP COSIGNER: URGENCY: STATUS: COMPLETED HISTORY: 88-year-old male presents for evaluation of lesions on the right and left temples. These have been present for about 3 to 4 months and are itchy. 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 He denies a family history of melanoma. OVERALL CONSULT/IMAGE QUALITY: Fully satisfactory EXAM: Photographs show pink, scaly papules on the right zygomatic cheek, right scapha of the ear, left zygomatic cheek, left quaker IMPRESSION BASED ON IMAGES AND INFORMATION REVIEWED: PROBLEM A: Diagnosis: Actinic Keratosis RECOMMENDATIONS FOR REFERRING PROVIDER: PROBLEM A: Liquid nitrogen cryotherapy: TIME-SENSITIVITY: No time-sensitive, urgent, emergent or life-threatening results. RECOMMENDED FOLLOW-UP (Include Clinically Indicated Date (JEFFREY)): Consult to Dermatology clinic for follow up JEFFREY: Routine Cumulative time of review and management: 5 minutes or more /kaylynn/ Ronal Kendrick PA-C Dermatology Signed: 02/08/2024 07:43 * END OF REMOTE RESULTS /kaylynn/ RAISA HAIR TELEHEALTH CLINICAL MAJOR GIFTS DIRECTOR Signed: 02/08/2024 08:15 Receipt Acknowledged By: 02/08/2024 08:21 /kaylynn/ SKYLAR GREGORY MD PHYSICIAN 02/21/2024 ADDENDUM STATUS: COMPLETED Pt called asking to go over his results please call # on file. /kaylynn/ RAISA HAIR TELEHEALTH CLINICAL MAJOR GIFTS DIRECTOR Signed: 02/21/2024 14:51 Receipt Acknowledged By: * AWAITING SIGNATURE * SKYLAR GREGORY JESSICA A [place] [facility] [place] [facility] Feb 07, 2024 02:00 PM TELEHEALTH CONSULT : LOCAL TITLE: CONSULT REPORT/TELEDERMATOLOGY IMAGING REQUEST STANDARD TITLE: TELEHEALTH CONSULT DATE OF NOTE: FEB 07, 2024@14:00 ENTRY DATE: FEB 07, 2024@14:00:54 AUTHOR: RAISA HAIR EXP COSIGNER: URGENCY: STATUS: COMPLETED Teledermatology Consult Request The patient was educated regarding the Teledermatology process at this encounter. Comment: Patient educated on telederm process and verbalizes understanding Patient DOES consent to have images taken, viewed, and interpreted using the Teledermatology process. This consult addresses: A new condition Images were acquired: In clinic HISTORY: Prior skin history: None reported Have you had a skin cancer before? Other/Unknown Pt states elevated lesion to the right eye was some type of cancer but unsure what type. Patient reports no family history of melanoma. Taking new med/supplements: None reported Immunosuppression history: None reported Other significant history: None reported Chief Complaint: Chief Complaint: vet notes possible actinic keratosis type lesions on quaker area of forehead. PROBLEM A LOCATION(S): Head/Neck bilateral temples DURATION: 3-4 months SYMPTOMS: Itch, Redness CHANGES: None TREATMENT: Yes Details: over the counter cream is helping they are less red now pt doesn't know the name of the cream BIOPSY: No Global Account Executive's comments: Imaged per providers direction and facility protocol /kaylynn/ RAISA HAIR TELEHEALTH CLINICAL MAJOR GIFTS DIRECTOR Signed: 02/07/2024 14:32 RAISA HAIR [facility]
--- OUTSIDE RECORDS SUMMARY | 2024-04-15 23:06 | XMS_ITS | Encounter Summary ---
Author Name [facility] [facility] [place] Organization [place] Address [address] [place] [address] Care Team Providers Care Society Editor Name Role Phone SKYLAR GREGORY Primary Care [...] Witt's Name Patient's Relationship to Policy Witt [facility] (WNR) MEDICARE ADVANTAGE [facility] (WNR) May 07, 2017 [id number] [phone] MILLIE AG SR PATIENT Selected Encounter This section includes the information on record at [place] for the Encounter. Date/Time Encounter Type Encounter Description Reason Pro vider Source Feb 08, 2024 07:43 AM Outpatient Encounter EVENT (HISTORICAL) IHE Encounter Template Text not used by [place] Plan of Treatment: Future Appointments (+ 6 [...] 17, 2024 10:00 AM AMBULATORY - MEDICINE IN [place] [facility] [place] [facility] Jun 09, 2024 10:00 AM AMBULATORY - MEDICINE IN C [facility] [place] [facility] Active, Pending, and Scheduled Orders This section includes a listing of several types of active, pending, and scheduled orders, including clinic medications orders, diagnostic test orders, procedure orders and consult orders; where the start date of the order is 45 days before the date of the Encounter or 45 days after the date of theEncounter. The data comes from all [place] treatment facilities. Test Date/Time Test Type Test Details Facility Name Feb 08, 2024 08:25 AM Consult Order DERMATOLOG Y/NHM (OUTPT) Cons Sugar Presser's Choice [place] [facility] [place] [facility] Social History: Smoking Status (Most current) [...] took place. Date/Time Current Smoking Status Comment [facility] May 03, 2023 09:30 AM VA-TOBACCO FORMER USER IN [facility] [place] [facility] Tobacco Use History This section includes a history of the smoking, or tobacco-related health factors, that were collected on or before the date of the Encounter. The data comes from the [place] facility where the Encounter took place. Date/Time Smoking Status/Tobac co Use Comment Facility May 03, 2023 09:30 AM VA-TOBACCO QUIT 15 YRS OR MORE IN [facility] [place] [facility] Oct 26, 2021 10:00 AM VA-TOBACCO FORMER USER IN [facility] [place] [facility] Oct 26, 2021 10:00 AM VA-TOBACCO QUIT 15 YRS OR MORE [facility] [place] [facility] Aug 19, 2020 08:30 AM VA-TOBACCO FORMER USER VA [facility] [place] [facility] Aug 19, 2020 08:30 AM VA-TOBACCO QUIT 15 YRS OR MORE IN [facility] [place] [facility] May 21, 2018 09:36 AM VA-TOBACCO FORMER USER VA [facility] [place] [facility] May 21, 2018 09:36 AM VA-TOBACCO QUIT 15 YRS OR MORE IN [facility] [place] [facility] May 21, 2018 08:51 AM VA-TOBACCO NEVER USED VA [facility] [place] [facility] May 09, 2017 09:38 AM QUIT TOBACCO USE > 7 YEARS AGO quit 35 yrs ago IN [facility] [place] [facility] May 09, 2016 09:45 AM LIFETIME NON-TOBACCO USER IN [facility] [place] [facility] May 06, 2015 08:02 AM QUIT TOBACCO USE > 7 YEARS AGO pt states he stopped smoking 20 yrs ago IN [facility] [place] [facility] Apr 05, 2009 02:04 PM QUIT TOBACCO USE > 7 YEARS AGO QUIT 15 YEARS AGO IN [facility] [place] [facility] Encounter Notes: All associated encounter notes This section contains the clinical notes associated to the Encounter. Date/Time Encounter Note(s) Provider Source Feb 08, 2024 07:43 AM TELEHEALTH CONSULT : LOCAL TITLE: CONSULT REPORT/TELEDERMATOLOGY IMAGING REQUEST STANDARD TITLE: TELEHEALTH CONSULT DATE OF NOTE: FEB 08, 2024@07:43:48 ENTRY DATE: FEB 08, 2024@07:43:48 AUTHOR: DAVIE ARIAS EXP COSIGNER: URGENCY: STATUS: COMPLETED Please refer to Inter-facility Consult for results. Automatically generated note - signature not required. Electronically Filed: 02/08/2024 by: DAVIE JUAREZ [facility]
== END 2024-04-10 07:21 | disposition home or self-care (01) ==
LOC: HO.US 07:20
PROVIDERS: PCP Family Medicine; Visit Provider Internal Medicine Cardiovascular Disease
DX: R60.0 Localized edema (principal)
CPT/HCPCS: 93970

== ENCOUNTER → 2024-04-10 07:22 | Outpatient (BNV) | payer BC, SELFPAY | PROVIDERS: PCP Family Medicine; Visit Provider Radiology Diagnostic Radiology | DX: I82.401 Acute embolism and thrombosis of unspecified deep veins of right lower extremity (principal) | CPT/HCPCS: 93970 ==

== ENCOUNTER → 2024-04-11 08:13 | Outpatient (BNVA) | payer BC, SELFPAY | PROVIDERS: PCP Family Medicine; Visit Provider Internal Medicine | DX: I48.0 Paroxysmal atrial fibrillation (principal); Z79.01 Long term (current) use of anticoagulants; Z51.81 Encounter for therapeutic drug level monitoring | CPT/HCPCS: 85610; 99211 ==

== ENCOUNTER 2024-04-14 07:01 | Outpatient (REF) | payer BC, SELFPAY ==
[2024-04-14 08:05] LABS: Estimated Average Glucose 134 mg/dL; Hemoglobin A1C 145.4888 umol/L; Hemoglobin A1c % 6.3 % (<6.0)
[2024-04-14 08:14] LABS: Alanine Aminotransferase 16 U/L (0-40); Albumin Level 4.1 g/dL (3.5-5.0); Alkaline Phosphatase 98 U/L (39-117); Anion Gap 13 (12-20); Aspartate Amino Transferase 25 U/L (5-37); Bilirubin Total 1.1 mg/dL (0.0-1.0); Blood Urea Nitrogen 22 mg/dL (9-16); Calcium 9.8 mg/dL (8.4-10.2); Carbon Dioxide 28 mmol/L (22-29); Chloride 107 mmol/L (96-108); Estimated Glomerular Filt Rate 44; Glucose Fasting 113 mg/dL (60-99); Potassium 3.8 mmol/L (3.3-5.1); Sodium 144 mmol/L (135-145); Total Protein 7.1 g/dL (6.5-8.0)
[2024-04-14 08:15] LABS: Creatinine Urine 260.86 mg/dL; Microalbum/Creatinine Ratio Ur 39.8 ug/mg cr (<30)
--- OUTSIDE RECORDS SUMMARY | 2024-04-16 12:33 | XMS_ITS | Encounter Summary ---
Author Name [facility] [place] [facility] [place] [facility] [place] Address [address] [place] [address] Care Team Providers Care Cork Insulator Name Role Phone SKYLAR GREGORY Primary Care [...] Witt's Name Patient's Relationship to Policy Witt [facility] (WNR) MEDICARE ADVANTAGE [facility] (WNR) May 07, 2017 [id number] MILLIE AG SR PATIENT Selected Encounter This section includes the information on record at [place] for the Encounter. Date/Time Encounter Type Encounter Description Reason Pro vider Source Jun 01, 2023 09:30 AM Outpatient Encounter PODIATRY IHE Encounter Template Text not used by [place] Plan of Treatment: Future Appointments (+ 6 months) and Future Tests (+/- 45 days) The Plan of Treatment section includes future care activities for the patient from all [place] treatmentfacilities. This section includes future appointments and future orders which are active, pending or scheduled. Future Appointments This section includes appointments that were scheduled to occur 6 months from the date of the Encounter, up to a maximum of 20 appointments. The data comes from all [place] treatment facilities. Appointment Date/Time Appointment Type Appointme nt Facility Name Jun 06, 2023 08:00 AM AMBULATORY [place]ICINE [place] [facility] [place] [facility] Oct 25, 2023 08:30 AM AMBULATORY [place] MEDICINE [place] [facility] [place] [facility] Social History: Smoking Status (Most [...] 03, 2023 09:30 AM VA-TOBACCO FORMER USER [place] [facility] [place] [facility] Tobacco Use History This section includes a history of the smoking, or tobacco-related health factors, that were collected on or before the date of the Encounter. The data comes from the [place] facility where the Encounter took place. Date/Time Smoking Status/Tobac co Use Comment Facility May 03, 2023 09:30 AM VA-TOBACCO QUIT 15 YRS OR MORE [facility] [place] [facility] Oct 26, 2021 10:00 AM VA-TOBACCO FORMER USER [facility] [place] [facility] Oct 26, 2021 10:00 AM VA-TOBACCO QUIT 15 YRS OR MORE [facility] [place] [facility] Aug 19, 2020 08:30 AM VA-TOBACCO FORMER USER [facility] [place] [facility] Aug 19, 2020 08:30 AM VA-TOBACCO QUIT 15 YRS OR MORE [facility] [place] [facility] May 21, 2018 09:36 AM VA-TOBACCO FORMER USER [facility] [place] [facility] May 21, 2018 09:36 AM VA-TOBACCO QUIT 15 YRS OR MORE [facility] [place] [facility] May 21, 2018 08:51 AM VA-TOBACCO NEVER USED [facility] [place] [facility] May 09, 2017 09:38 AM QUIT TOBACCO USE > 7 YEARS AGO quit 35 yrs ago [facility] [place] [facility] May 09, 2016 09:45 AM LIFETIME NON-TOBACCO USER [facility] [place] [facility] May 06, 2015 08:02 AM QUIT TOBACCO USE > 7 YEARS AGO pt states he stopped smoking 20 yrs ago [facility] Apr 05, 2009 02:04 PM QUIT TOBACCO USE > 7 YEARS AGO QUIT 15 YEARS AGO [facility] Encounter Notes: All associated encounter notes This section contains the clinical notes associated to the Encounter. Date/Time Encounter Note(s) Provider Source Jun 01, 2023 11:44 AM CLERICAL NOTE: LOCAL TITLE: APPOINTMENT NO SHOW STANDARD TITLE: CLERICAL NOTE DATE OF NOTE: JUN 01, 2023@11:44 ENTRY DATE: JUN 01, 2023@11:44:54 AUTHOR: GRANT CAMERON EXP COSIGNER: URGENCY: STATUS: COMPLETED Patient Name: MILLIE AG Patient SSN: [id number] Date and time of Appointment No show : 06/01/23 09:30 PATIENT PHONE - PHONE NUMBER [CELLULAR] - NONE FOUND Patient's medical record was reviewed. Follow-up actions were determined and initiated: Please check/complete as applies: [ ]Telephoned Directly [ ]Re-scheduled for next available appt [X]Sent a N0-show letter ( must call for appointment) [ ]Other (Emergent/Overbook, etc.): Additional Comments: Future Clinic Visits 12/25/2023 08:30 NHM/OPTOMETRY/SOSA/ 04/17/2024 10:00 CWM/NO/PACT 4 /es/ GRANT CAMERON LEAD ANTIQUE JEWELRY REPAIRER Signed: 06/01/2023 11:45 GRANT CAMERON [facility]
--- OUTSIDE RECORDS SUMMARY | 2024-04-16 12:35 | XMS_ITS | Encounter Summary ---
Author Name [facility] Organization [facility] [place] Address [address] [place] [address] Care Team Providers Care Flour Mixer Name Role Phone SKYLAR GREGORY Primary Care [...] Name Patient's Relationship to Policy Witt [facility] (WNR) MEDICARE ADVANTAGE [facility] (WNR) May 07, 2017 [id number] [phone] MILLIE AG SR PATIENT Selected Encounter This section includes the information on record at [place] for the Encounter. Date/Time Encounter Type Encounter Description Reason Provider Source Feb 07, 2024 03:00 PM TRIM NAIL(S) PODIATRY ICD-10-CM E11.9 Type 2 diabetes mellitus without complications LUIS MANZANO [facility] Encounter Template Text not used by [place] Assessments - Encounter Diagnoses This section includes the primary and secondary diagnoses documented for the Encounter. Date/Time Primary/Secondary Diagnosis Diagnosis Name Provider Source Feb 07, 2024 03:23 PM PRIMARY Type 2 diabetes mellitus without complications LUIS MANZANO [facility] [place] [facility] Feb 07, 2024 03:23 PM SECONDARY Nail dystrophy [facility] Plan of Treatment: Future Appointments (+ 6 months) and Future Tests (+/- 45 days) The Plan of Treatment section includes future care activities for the patient from all [place] [facility]. This section includes future appointments and future orders which are active, pending or scheduled. Future Appointments This section includes appointments that were scheduled to occur 6 months from the date of the Encounter, up to a maximum of 20 appointments. The data comes from all [facility]. Appointment Date/Time Appointment Type Appointme nt Facility Name Apr 17, 2024 10:00 AM AMBULATORY - MEDICINE [facility] Jun 09, 2024 10:00 AM AMBULATORY MEDICINE [facility] Active, Pending, and Scheduled Orders This section includes a listing of several types of active, pending, and scheduled orders, including clinic medications orders, diagnostic test orders, procedure orders and consult orders; where the start date of the order is 45 days before the date of the Encounter or 45 days after the date of theEncounter. The data comes from all [facility]. Test Date/Time Test Type Test Details Facility Name Feb 08, 2024 08:25 AM Consult Order DERMATOLOG Y/[facility] (OUTPT) Cons Service Station Console Operator's Choice [facility] Social History: Smoking Status [...] 03, 2023 09:30 AM VA-TOBACCO FORMER USER [facility] Tobacco Use History This section includes a history of the smoking, or tobacco-related health factors, that were collected on or before the date of the Encounter. The data comes from the [place] facility where the Encounter took place. Date/Time Smoking Status/Tobac co Use Comment Facility May 03, 2023 09:30 AM [place]-TOBACCO QUIT 15 YRS OR MORE [facility] Oct 26, 2021 10:00 AM VA-TOBACCO FORMER USER [facility] [place] [facility] Oct 26, 2021 10:00 AM VA-TOBACCO QUIT 15 YRS OR MORE [facility] [place] [facility] Aug 19, 2020 08:30 AM VA-TOBACCO FORMER USER [facility] [place] [facility] Aug 19, 2020 08:30 AM VA-TOBACCO QUIT 15 YRS OR MORE [facility] [place] [facility] May 21, 2018 09:36 AM VA-TOBACCO FORMER USER [facility] [place] [facility] May 21, 2018 09:36 AM VA-TOBACCO QUIT 15 YRS OR MORE [facility] [place] [facility] May 21, 2018 08:51 AM VA-TOBACCO NEVER USED [place] [facility] [place] [facility] May 09, 2017 09:38 AM QUIT TOBACCO USE > 7 YEARS AGO quit 35 yrs ago [facility] [place] [facility] May 09, 2016 09:45 AM LIFETIME NON-TOBACCO USER [facility] [place] [facility] May 06, 2015 08:02 AM QUIT TOBACCO USE > 7 YEARS AGO pt states he stopped smoking 20 yrs ago [facility] [place] [facility] Apr 05, 2009 02:04 PM QUIT TOBACCO USE > 7 YEARS AGO QUIT 15 YEARS AGO [facility] [place] [facility] Encounter Notes: All associated encounter notes This section contains the clinical notes associated to the Encounter. Date/Time Encounter Note(s) Provider Source Feb 07, 2024 03:20 PM NURSING OUTPATIENT NOTE: LOCAL TITLE: NURSING/SPECIALTY CLINIC NOTE STANDARD TITLE: NURSING OUTPATIENT NOTE DATE OF NOTE: FEB 07, 2024@15:20 ENTRY DATE: FEB 07, 2024@15:21:03 AUTHOR: LUIS MANZANO EXP COSIGNER: URGENCY: STATUS: COMPLETED seen [facility] for continued foot care. has a history of Diabetes and is unable to trim his/her own nails. Ambulates: [X]self [ ]wheelchair can transfer [ ]wheelchair cannot transfer [x ]without assistance [ ]with assistance of Bilateral: Pedal pulses: Right Foot: Dorsalis Pedis - palpable [x ] non-palpable[ ] Posterior Tibial - palpable[x ] non-palpable[ ] Left Foot: Dorsalis Pedis - palpable [x ] non-palpable [ ] Posterior Tibial - palpable [x ] non-palpable[ ] Pedal sensation: Right Foot: [x ] Intact [ ] Absent out of 10 sites Left Foot: [x ] Intact [ ] Absent out of 10 sites Skin Temperature: [x ] Warm to warm, proximal to distal [ ] Warm to cool/cold, proximal to distal Pedal skin: [ x] Intact [x ] Dry [ ] Cracked [ ] Discolored Webspaces: [x ] Intact [ x] Clean [ ] Soiled [ ] Macerated [x ] Dry Nails: [x ] Thickened [ x] Elongated [x ] Dystrophic [ ] Discolored [ ] Fungal [ ] Incurvated [ ] Subungual debri Hyperkeratosis [ ] Yes, Locations: [x ] No Open lesions/wounds: [ ] Yes, Locations: [x ] No Amputations: [ ] Yes, Locations: [x ] No Edema present: ( ) Yes ( x ) NO Podiatric Problem List: [x ] Diabetes mellitus [ ] Peripheral vascular disease [ ] Neuropathy [ ] Onychomycosis [x ] Dystrophic toenails [ ] Hyperkeratosis/calluses [ ] Xerosis/dry skin [ ] Other: Treatment: [x ] Nails x 10 debrided in length and thickness without incident [ ] Hyperkeratotic lesions were grinded down with eletric gear and spline grinder and debrided without incidence. [x ]Patient education educated about proper foot care and encouraged to check feet daily for injuries and wounds [ x] Instructed to moisturize feet daily but not in-between toes Patient is to RTC in 4 months. /kaylynn/ LUIS MANZANO LPN LICENSED PRACTICAL NURSE Signed: 02/07/2024 15:23 Receipt Acknowledged By: 02/07/2024 17:47 /kaylynn/ DIEGO LEAHY DPM PODIATRY ATTENDING LUIS MANZANO [facility]
== END 2024-04-14 07:02 | disposition home or self-care (01) ==
LOC: HO.LAB 07:01
PROVIDERS: Absent Provider Internal Medicine Nephrology; PCP Family Medicine; Visit Provider Physician Assistant
DX: I12.9 Hypertensive chronic kidney disease with stage 1 through stage 4 chronic kidney disease, or unspecified chronic kidney disease (principal); E11.22 Type 2 diabetes mellitus with diabetic chronic kidney disease; N18.31 Chronic kidney disease, stage 3a
CPT/HCPCS: 36415; 80053; 82043; 82570; 83036

== ENCOUNTER 2024-04-16 09:27 | Outpatient (AMB) | payer BC, SELFPAY ==
--- NOTE | 2024-04-16 09:44 | HO.NEPHOV_ITS ---
Vital Signs 04/16/24 09:47 Height 5 ft 6 in Weight 174 lb 4 oz BMI 28.1 BP 130/60 Blood Pressure Location Lt brachial Position Sitting Pulse 62 Pulse Source Pulse Oximeter Pulse Oximetry (%) 99 Oxygen Delivery Method Room Air Intake Visit Reasons: CKD/ Conf Policy Services Representative Required: No Accompanied by: Self / Same As Patient Allergies hydralazine [Hydralazine] Allergy (Unknown, Verified 12 09:47) SEVERE HEADACHE HPI Comments Details: I had the pleasure of was seeing [place] in follow-up of his chronic kidney disease and hypertension. He has diabetes over 20 years. His blood sugar control is quite good. He has prostate issues and is followed up by Dr. Francis. He has had coronary artery disease but has no chest pain, shortness of breath, proximal nocturnal dyspnea, orthopnea or pedal edema. He denies any peripheral arterial symptoms. He has no history of CVA. He is hypertensive over 2 decades and his blood pressure is well controlled on current medication regimen. He avoids nonsteroidal anti-inflammatory medications and maintain good hydration. There were no other new complaints at the time of this office visit. [facility] Medical History Chest pain RUQ pain Wheezing Elevated diaphragm Pulmonary nodules Aortic stenosis Edema CAD (coronary artery disease) Diabetes type 2, controlled Elevated prostate specific antigen between 10 and 19 ng/ml Atrial fibrillation Jayy's disease Elevated morning serum cortisol level Surgical History History of cardiac cath Hx of tonsillectomy Hx of colonoscopy Family History Father Colon cancer Mother HTN (hypertension) Type 2 diabetes mellitus Brother No problems noted. Sister No problems noted. Son No problems noted. Son No problems noted. Son No problems noted. Daughter No problems noted. Daughter No problems noted. Social History Housing: Apartment Alcohol intake: former Year quit: 1979 Patient Tobacco Use Status: Former Tobacco user Years Smoked: 45+ e-Cigarette/Vaping Use: Never Used Second Hand Smoke Exposure: No service: Yes ([employer] [id number]) Current occupational status: retired Current occupational exposures/hazards: No Cognitive needs: No Hearing needs: Yes Vision needs: No Review of Systems Const All systems reviewed & are unremarkable except as noted in HPI and below Physical Exam Vital Signs: Last Vital Signs Pulse 62 04/16/24 09:47 BP 130/60 04/16/24 09:47 Pulse Ox 99 04/16/24 09:47 Oxygen Delivery Method Room Air 04/16/24 09:47 BMI result Body Mass Index 28.1 Const General: comfortable and no acute distress Orientation/consciousness: patient oriented x3 HEENT Head: Yes normocephalic Mouth: Normal oral and palatal mucosa present Eyes EOM: EOMs intact bilaterally Neck Neck: Yes supple Resp Auscultation: clear to auscultation bilaterally Cardio Jugular venous distension: no JVD Rate: regular rate GI Palpation (GI): Soft to palpation Auscultation: normal bowel sounds General: Yes no CVA tenderness Back/Spine/Pelvis Back: no CVA tenderness Skin General skin exam: no rashes or lesions noted Neuro General: patient oriented x3 and moves all extremities Extrem General: Yes no pedal edema Results Reviewed Nephrology Results: Sodium 144 mmol/L (135-145) 04/14/24 Potassium 3.8 mmol/L (3.3-5.1) 04/14/24 Chloride 107 mmol/L (96-108) 04/14/24 Carbon Dioxide 28 mmol/L (22-29) 04/14/24 BUN 22 mg/dL (9-16) H 04/14/24 Creatinine 1.51 mg/dL (0.5-1.4) H 04/14/24 Calcium 9.8 mg/dL (8.4-10.2) 04/14/24 Urine Creatinine 260.86 mg/dL 04/14/24 Assessment & Plan Assessment & Plan (1) CKD (chronic kidney disease) stage 3, GFR 30-59 ml/min: Code(s): N18.30 - Chronic kidney disease, stage 3 unspecified Category: Medical Qualifiers: Chronic kidney disease stage 3 subtype: stage 3a (GFR 45-59) Qualified Code(s): N18.31 - Chronic kidney disease, stage 3a (2) Essential hypertension: Code(s): I10 - Essential (primary) hypertension Category: Medical Plan [place] has chronic kidney disease likely due to vascular disease. He has longstanding diabetes and hypertension. He is on RICK-inhibitor along with other antihypertensive medications. His renal functions are stable. His blood sugar and blood pressure control is quite good. He is on statins. Her volume status was optimal. He avoids nonsteroidal anti-inflammatory medications and maintain good hydration. He is followed by cardiology. He can continue on his current medication regimen. I did not make any medication changes today. Follow-up lab work were ordered. All questions answered. Orders: Orders Creatinine 6 Months I10 - Essential (primary) hypertension, N18.31 - Chronic kidney disease, stage 3a Blood Urea Nitrogen 6 Months I10 - Essential (primary) hypertension, N18.31 - Chronic kidney disease, stage 3a Electrolytes 6 Months I10 - Essential (primary) hypertension, N18.31 - Chronic kidney disease, stage 3a Protein Creatinine Ratio, Ur 6 Months I10 - Essential (primary) hypertension, N18.31 - Chronic kidney disease, stage 3a Coding Level of Care Code Est Pt Level 4 (55894) Diagnoses Stage 3a chronic 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 Chronic kidney disease stage 3 subtype: stage 3a (GFR 45-59) Essential hypertension I10
[2024-04-16 09:47] VITALS: BP 130/60; PULSE 62; O2SAT 99; BMI 28.1
--- OUTSIDE RECORDS SUMMARY | 2024-04-16 23:47 | XMS_ITS | Continuity of Care Document ---
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) Active 05/07/19 19 Condition May 21, 2018 Entered By: MC DAN Comment: treated with finasteride [facility] Essential hypertension Active 05/07/19 09 Condition [facility] Hearing loss (SNOMED CT 21536919) Active 05/07/19 09 Condition [facility] HLD - Hyperlipidemia Active 05/07/19 09 Condition [facility] Hypothyroidism (SNOMED CT 75761384) Active 05/07/19 09 Condition [facility] Transient Ischemic Attack Active 05/07/19 09 Condition [facility] 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 Aug 24, 2021 Entered By: SKYLAR GREGORY Comment: stable creat level approx 1.5 over past year ( 2021) [facility] Diabetes Mellitus Type 2 (SCT [id number]) Active Condition [facility] History of actinic keratosis Active Condition Feb 08, 2024 Entered By: SKYLAR GREGORY Comment: see tele derm-lesions on right side of face/ vet needs cryotx per derm [facility] Low Back Pain (SCT 632403852) Active Condition Oct 26, 2021 Entered By: SKYLAR GREGORY Comment: vet reports hx of sciatica pain down bilat buttock areas/request s chiro care [facility] Microalbuminuria due to type 2 diabetes mellitus Active Condition [facility] Numbness of hand Active Condition Feb 06, 2022 Entered By: SKYALR GREGORY Comment: vet has more numbness in left hand than right-over dorsum- not c/w Carpal tunnel [facility] Diagnosis: ICD-10-CM L57.0 Actinic keratosis Active Diagnosis [facility] Diagnosis: ICD-10-CM E11.9 Type 2 diabetes [...] DAILY ORAL ACTIVE RA AXEL MURRELL 2020 [facility] CARBOXYMETH YLCELLULOSE NA 0.5% SOLN,OPH INSTILL 1 DROP INTO EACH EYE FOUR TIMES A DAY FOR DRY EYE OPHTHA LMIC ACTIVE 12/25/2024 [id number] 4 SOSA,LAC EY J 2023 [facility] FUROSEMIDE 20MG TAB TAKE ONE TABLET BY MOUTH ONCE DAILY ORAL ACTIVE RA [facility]RELL 2020 [facility] GLIPIZIDE 5MG TAB TAKE ONE TABLET BY MOUTH ORAL ACTIVE RA AXEL MURRELL 2020 [facility] LEVOTHYROXI NE NA 137MCG TAB (SYNTHROID) TAKE ONE TABLET BY MOUTH QD ORAL ACTIVE RA AXEL MURRELL 2020 [facility] LISINOPRIL 20MG TAB TAKE ONE TABLET BY MOUTH ONCE DAILY ORAL ACTIVE RA AXEL MURRELL 2020 [facility] METOPROLOL SUCCINATE 100MG TAB,SA TAKE ONE TABLET BY MOUTH ONCE DAILY ORAL ACTIVE RA AXEL MURRELL 2020 [facility] PRAVASTATIN NA 40MG TAB TAKE ONE TABLET BY MOUTH AT BEDTIME ORAL ACTIVE PRASHANT DAN 2009 [facility] WARFARIN (NON-VA) TAB TAKE 2MG BY MOUTH ONCE DAILY ORAL ACTIVE RA AXEL MURRELL 2020 [facility] Immunizations Combined list of available immunizations from the Department of Defense and Veterans Affairs facilities. Immunization Series Date Given Administered By Site Reaction Lot Number CVX Code Drug Supervisor Dry Cell Assembly Status Comments Source INFLUENZA, UNSPECIFIED FORMULATION 2023 88 complet ed [facility] INFLUENZA, UNSPECIFIED FORMULATION 2021 88 complet ed [facility] COVID-19 (MODERNA), MRNA, LNP-S, PF, 100 MCG OR 50 MCG DOSE 3 2020 207 complet ed MOD; [id number]; 2 [facility] COVID-19 (MODERNA), MRNA, LNP-S, PF, 100 MCG/0.5 ML DOSE 2 2020 207 complet ed MOD; [id number]; 1 [facility] COVID-19 (MODERNA), MRNA, LNP-S, PF, 100 MCG/0.5 ML DOSE 1 2020 207 complet ed MOD; [id number]; 1 [facility] [...] Left Deltoid [facility] FLU,3 YRS (HISTORICAL) 2009 88 [facility] FLU,3 YRS (HISTORICAL) 2008 88 complet ed [facility] [place] [facility] PNEUMOCOCCAL, UNSPECIFIED FORMULATION 2003 109 complet ed [place] [facility] [place] [facility] Results Combined list of recent chemistry, hematology and other laboratory results from Department of Defense and Veterans Affairs, ranging from 15 months to all on record, depending upon the facility. Order Name Results Value Reference Range Date Interpretation Specimen Comments Source THYROID T4 FREE(FT4) THYROXINE (T4) FREE [MASS/VOLUM E] IN SERUM OR PLASMA 0.66 ng/dL 0.6 - 1.6 08/09 Specimen Type: SERUM No comment entered. Ordering Provider: SKYLAR ARRIOLA Report Released Date/Time: Aug 09, 2022 09:43 AM Reporting Lab: [facility] [address] [facility] [address] Performing Lab: [facility] [address] [facility] [address] [facility] HEMOGLOBI N A1C PANEL HEMOGLOBIN A1C/HEMOGLO [...] Aug 09, 2022 09:43 AM Reporting Lab: [facility] [address] [facility] [address] Performing Lab: [facility] [address] [facility] [address] [facility] BASIC METABOLIC PANEL (non-fast ing) UREA NITROGEN [MASS/VOLUM E] IN SERUM OR PLASMA 27 mg/dL 7 - 25 08/09 H Specimen Type: SERUM Comment: BUN Verified by repeat analysis. Ordering Provider: SKYLAR ARRIOLA Report Released Date/Time: Aug 09, 2022 09:43 AM Reporting Lab: [address] [address] Performing Lab: [address] [address] [facility] BASIC METABOLIC PANEL (non-fast ing) GLUCOSE [MASS/VOLUM E] IN SERUM OR PLASMA 126 mg/dL 65 - 100 08/09 H Specimen Type: SERUM Comment: BUN Verified by repeat analysis. Ordering Provider: SKYLAR ARRIOLA Report Released Date/Time: Aug 09, 2022 09:43 AM Reporting Lab: [address] [address] Performing Lab: [address] [address] [facility] BASIC METABOLIC PANEL (non-fast ing) SODIUM [MOLES/VOLU ME] IN SERUM OR PLASMA 142 mmol/L 135 - 145 08/09 Specimen Type: SERUM Comment: BUN Verified by repeat analysis. Ordering Provider: SKYLAR ARRIOLA Report Released Date/Time: Aug 09, 2022 09:43 AM Reporting Lab: [address] [address] Performing Lab: [address] [address] [facility] BASIC METABOLIC PANEL (non-fast ing) POTASSIUM [MOLES/VOLU ME] IN SERUM OR PLASMA 4.6 mmol/L 3.5 - 5.0 08/09 Specimen Type: SERUM Comment: BUN Verified by repeat analysis. Ordering Provider: SKYLAR ARRIOLA Report Released Date/Time: Aug 09, 2022 09:43 AM Reporting Lab: [facility] [place] [facility] [address] [facility] [address] Performing Lab: [place] [facility] [place] [facility] [address] [facility] [address] [facility] [place] [facility] BASIC METABOLIC PANEL (non-fast ing) CHLORIDE [MOLES/VOLU ME] IN SERUM OR PLASMA 105 mmol/L 100 - 110 08/09 Specimen Type: SERUM Comment: BUN Verified by repeat analysis. Ordering Provider: SKYLAR ARRIOLA Report Released Date/Time: Aug 09, 2022 09:43 AM Reporting Lab: [facility] [address] [address] Performing Lab: [facility] [address] [facility]N [facility] BASIC METABOLIC PANEL (non-fast ing) CARBON DIOXIDE, TOTAL [MOLES/VOLU ME] IN SERUM OR PLASMA 26 meq/L 20 - 30 08/09 Specimen Type: SERUM Comment: BUN Verified by repeat analysis. Ordering Provider: SKYLAR ARRIOLA Report Released Date/Time: Aug 09, 2022 09:43 AM Reporting Lab: [facility] [place] [address] Performing Lab: [facility] [address] [facility] TRN [facility] BASIC METABOLIC PANEL (non-fast ing) CREATININE [MASS/VOLUM E] IN SERUM OR PLASMA 1.92 mg/dL 0.50 - 1.40 08/09 H Specimen Type: SERUM Comment: BUN Verified by repeat analysis. Ordering Provider: SKYLAR ARRIOLA Report Released Date/Time: Aug 09, 2022 09:43 AM Reporting Lab: [facility] [place] [address] [address] Performing Lab: [facility] [place] [address] [address] [facility] BASIC METABOLIC PANEL (non-fast ing) GLOMERULAR FILTRATION RATE/1.73 SQ M.PREDICTED [VOLUME RATE/AREA] IN SERUM, PLASMA OR BLOOD BY CREATININE- BASED FORMULA (CKD-EPI) 33 mL/min 60 08/09 L Specimen Type: SERUM Comment: BUN Verified by repeat analysis. Ordering Provider: SKYLAR ARRIOLA Report Released Date/Time: Aug 09, 2022 09:43 AM Reporting Lab: [facility] [place] [address] [address] Performing Lab: [facility] [place] [address] [address] [facility] [place] [facility] LIVER FUNCTION PROTEIN [MASS/VOLUM E] IN SERUM OR PLASMA 7.5 g/dL 6.0 - 8.3 08/09 Specimen Type: SERUM Comment: BUN Verified by repeat analysis. Ordering Provider: SKYLAR ARRIOLA Report Released Date/Time: Aug 09, 2022 09:43 AM Reporting Lab: [facility] [place] [facility] [address] [facility] [address] Performing Lab: [facility] [place] [facility] [address] [facility] [address] [facility] [place] [facility] LIVER FUNCTION ALBUMIN [MASS/VOLUM E] IN SERUM OR PLASMA 4.6 g/dL 3.5 - 5.0 08/09 Specimen Type: SERUM Comment: BUN Verified by repeat analysis. Ordering Provider: SKYLAR ARRIOLA Report Released Date/Time: Aug 09, 2022 09:43 AM Reporting Lab: [facility] [place] [facility] [address] [facility] [address] Performing Lab: [facility] [place] [address] [address] [facility] [place] [facility] LIVER FUNCTION ALKALINE PHOSPHATASE [ENZYMATIC ACTIVITY/VO LUME] IN SERUM OR PLASMA 87 U/L 40 - 150 08/09 Specimen Type: SERUM Comment: BUN Verified by repeat analysis. Ordering Provider: SKYLAR ARRIOLA Report Released Date/Time: Aug 09, 2022 09:43 AM Reporting Lab: [facility] [place] [facility] [address] [facility] [address] Performing Lab: [facility] [address] [facility] [address] [facility] [place] [facility] LIVER FUNCTION ASPARTATE AMINOTRANSF ERASE [ENZYMATIC ACTIVITY/VO LUME] IN SERUM OR PLASMA 34 U/L 5 - 34 08/09 Specimen Type: SERUM Comment: BUN Verified by repeat analysis. Ordering Provider: SKYLAR ARRIOLA Report Released Date/Time: Aug 09, 2022 09:43 AM Reporting Lab: [facility] [place] [facility] [address] [facility] [address] Performing Lab: [facility] [place] [facility] [address] [facility] [address] [facility] [place] [facility] LIVER FUNCTION ALANINE AMINOTRANSF ERASE [ENZYMATIC ACTIVITY/VO LUME] IN SERUM OR PLASMA 35 U/L 6 - 55 08/09 Specimen Type: SERUM Comment: BUN Verified by repeat analysis. Ordering Provider: SKYLAR ARRIOLA Report Released Date/Time: Aug 09, 2022 09:43 AM Reporting Lab: [facility] [place] [facility] [address] [facility] [address] Performing Lab: [facility] [place] [facility] [address] [facility] [address] [facility] [place] [facility] LIVER FUNCTION BILIRUBIN.T OTAL [MASS/VOLUM E] IN SERUM OR PLASMA 0.6 mg/dL 0.2 - 1.2 08/09 Specimen Type: SERUM Comment: BUN Verified by repeat analysis. Ordering Provider: SKYLAR ARRIOLA Report Released Date/Time: Aug 09, 2022 09:43 AM Reporting Lab: [facility] [address] [facility] [address] Performing Lab: [facility] [place] [facility] [address] [facility] [address] [facility] [place] [facility] TSH THYROTROPIN [UNITS/VOLU ME] IN SERUM OR PLASMA 11.71 u[IU]/ mL 0.35 - 5.00 08/09 H Specimen Type: SERUM Comment: BUN Verified by repeat analysis. Ordering Provider: SKYLAR ARRIOLA Report Released Date/Time: Aug 09, 2022 09:43 AM Reporting Lab: [facility] [place] [address] [address] Performing Lab: [facility] [place] [address] [address] [facility] [place] [facility] CBC AND DIFF (AUTO) LEUKOCYTES [#/VOLUME] IN BLOOD BY AUTOMATED COUNT 9.01 10*3/u L 4.50 - 11.00 08/09 Specimen Type: BLOOD No comment entered. Ordering Provider: SKYLAR ARRIOLA Report Released Date/Time: Aug 09, 2022 09:43 AM Reporting Lab: [facility] [place] [address] [address] Performing Lab: [facility] [place] [address] [address] [facility] [place] [facility] CBC AND DIFF (AUTO) ERYTHROCYTE S [#/VOLUME] IN BLOOD BY AUTOMATED COUNT 3.97 10*6/u L 4.23 - 5.66 08/09 L Specimen Type: BLOOD No comment entered. Ordering Provider: SKYLAR ARRIOLA Report Released Date/Time: Aug 09, 2022 09:43 AM Reporting Lab: [facility] [place] [address] [address] Performing Lab: [facility] [place] [address] [address] [facility] [place] [facility] CBC AND DIFF (AUTO) HEMOGLOBIN [MASS/VOLUM E] IN BLOOD 14.1 g/dL 12.8 - 17 08/09 Specimen Type: BLOOD No comment entered. Ordering Provider: SKYLAR ARRIOLA Report Released Date/Time: Aug 09, 2022 09:43 AM Reporting Lab: [facility] [place] [address] Performing Lab: [facility] [place] [facility] [address] [facility] [address] [facility] [place] [facility] CBC AND DIFF (AUTO) HEMATOCRIT [VOLUME FRACTION] OF BLOOD BY AUTOMATED COUNT 41.5 39.2 - 50.4 08/09 Specimen Type: BLOOD No comment entered. Ordering Provider: SKYLAR ARRIOLA Report Released Date/Time: Aug 09, 2022 09:43 AM Reporting Lab: [facility] [place] [facility] [address] [facility] [address] Performing Lab: [facility] [place] [facility] [address] [facility] [address] [facility] [place] [facility] CBC AND DIFF (AUTO) MCV [ENTITIC VOLUME] BY AUTOMATED COUNT 104.5 fL 82 - 99 08/09 H Specimen Type: BLOOD No comment entered. Ordering Provider: SKYLAR ARRIOLA Report Released Date/Time: Aug 09, 2022 09:43 AM Reporting Lab: [facility] [place] [facility] [address] [facility] [address] Performing Lab: [facility] [place] [facility] [address] [facility] [address] [facility] CBC AND DIFF (AUTO) MCHC [MASS/VOLUM E] BY AUTOMATED COUNT 34.0 g/dL 30.8 - 35.1 08/09 Specimen Type: BLOOD No comment entered. Ordering Provider: SKYLAR ARRIOLA Report Released Date/Time: Aug 09, 2022 09:43 AM Reporting Lab: [facility] [place] [facility] [address] [facility] [address] Performing Lab: [facility] [place] [facility] [address] [facility] [address] [facility] CBC AND DIFF (AUTO) PLATELETS [#/VOLUME] IN BLOOD BY AUTOMATED COUNT 174 10*3/u L 140 - 360 08/09 Specimen Type: BLOOD No comment entered. Ordering Provider: SKYLAR ARRIOLA Report Released Date/Time: Aug 09, 2022 09:43 AM Reporting Lab: [facility] [place] [facility] [address] [facility] [address] Performing Lab: [facility] [place] [facility] [address] [facility] [address] [facility] [place] [facility] CBC AND DIFF (AUTO) ERYTHROCYTE DISTRIBUTIO N WIDTH [RATIO] BY AUTOMATED COUNT 13.2 12.0 - 16.0 08/09 Specimen Type: BLOOD No comment entered. Ordering Provider: SKYLAR ARRIOLA Report Released Date/Time: Aug 09, 2022 09:43 AM Reporting Lab: [facility] [place] [facility] [address] [facility] [address] Performing Lab: [facility] [place] [address] [address] [facility] [place] [facility] CBC AND DIFF (AUTO) MONOCYTES [#/VOLUME] IN BLOOD BY AUTOMATED COUNT 0.55 10*3/u L 0.30 - 1.10 08/09 Specimen Type: BLOOD No comment entered. Ordering Provider: SKYLAR ARRIOLA Report Released Date/Time: Aug 09, 2022 09:43 AM Reporting Lab: [facility] [place] [facility] [address] [facility] [address] Performing Lab: [facility] [place] [address] [address] [facility] [place] [facility] CBC AND DIFF (AUTO) MCH [ENTITIC MASS] BY AUTOMATED COUNT 35.5 pg 26.2 - 32.6 08/09 H Specimen Type: BLOOD No comment entered. Ordering Provider: SKYLAR ARRIOLA Report Released Date/Time: Aug 09, 2022 09:43 AM Reporting Lab: [facility] [place] [facility] [address] [facility] [address] Performing Lab: [facility] [place] [address] [address] [facility] [place] [facility] CBC AND DIFF (AUTO) NEUTROPHILS /100 LEUKOCYTES IN BLOOD BY AUTOMATED COUNT 73.2 43.7 - 75.8 08/09 Specimen Type: BLOOD No comment entered. Ordering Provider: SKYLAR ARRIOLA Report Released Date/Time: Aug 09, 2022 09:43 AM Reporting Lab: [facility] [place] [address] [address] Performing Lab: [facility] [place] [address] [address] [facility] [place] [facility] CBC AND DIFF (AUTO) LYMPHOCYTES /100 LEUKOCYTES IN BLOOD BY AUTOMATED COUNT 17.9 14.0 - 42.3 08/09 Specimen Type: BLOOD No comment entered. Ordering Provider: SKYLAR ARRIOLA Report Released Date/Time: Aug 09, 2022 09:43 AM Reporting Lab: [facility] [place] [address] [address] Performing Lab: [facility] [place] [address] [address] [facility] [place] [facility] CBC AND DIFF (AUTO) MONOCYTES/1 00 LEUKOCYTES IN BLOOD BY AUTOMATED COUNT 6.1 5.1 - 13.7 08/09 Specimen Type: BLOOD No comment entered. Ordering Provider: SKYLAR ARRIOLA Report Released Date/Time: Aug 09, 2022 09:43 AM Reporting Lab: [facility] [place] [address] [address] Performing Lab: [facility] [place] [address] [address] [facility] [place] [facility] CBC AND DIFF (AUTO) EOSINOPHILS /100 LEUKOCYTES IN BLOOD BY AUTOMATED COUNT 2.0 0.4 - 6.8 08/09 Specimen Type: BLOOD No comment entered. Ordering Provider: SKYLAR ARRIOLA Report Released Date/Time: Aug 09, 2022 09:43 AM Reporting Lab: [facility] [place] [address] [address] Performing Lab: [facility] [place] [facility] [address] [facility] [address] [facility] [place] [facility] CBC AND DIFF (AUTO) BASOPHILS/1 00 LEUKOCYTES IN BLOOD BY AUTOMATED COUNT 0.6 0.1 - 2.0 08/09 Specimen Type: BLOOD No comment entered. Ordering Provider: SKYLAR ARRIOLA Report Released Date/Time: Aug 09, 2022 09:43 AM Reporting Lab: [facility] [place] [facility] [address] [facility] [address] Performing Lab: [facility] [place] [facility] [address] [facility] [address] [facility] [place] [facility] CBC AND DIFF (AUTO) NEUTROPHILS [#/VOLUME] IN BLOOD BY AUTOMATED COUNT 6.60 10*3/u L 2.20 - 7.60 08/09 Specimen Type: BLOOD No comment entered. Ordering Provider: SKYLAR ARRIOLA Report Released Date/Time: Aug 09, 2022 09:43 AM Reporting Lab: [facility] [place] [facility] [address] [facility] [address] Performing Lab: [facility] [place] [address] [address] [facility] [place] [facility] CBC AND DIFF (AUTO) LYMPHOCYTES [#/VOLUME] IN BLOOD BY AUTOMATED COUNT 1.61 10*3/u L 1.00 - 3.20 08/09 Specimen Type: BLOOD No comment entered. Ordering Provider: SKYLAR ARRIOLA Report Released Date/Time: Aug 09, 2022 09:43 AM Reporting Lab: [facility] [place] [address] [address] Performing Lab: [facility] [place] [address] [address] [facility] [place] [facility] CBC AND DIFF (AUTO) EOSINOPHILS [#/VOLUME] IN BLOOD BY AUTOMATED COUNT 0.18 10*3/u L 0.03 - 0.44 08/09 Specimen Type: BLOOD No comment entered. Ordering Provider: SKYLAR ARRIOLA Report Released Date/Time: Aug 09, 2022 09:43 AM Reporting Lab: [facility] [place] [facility] [address] [facility] [address] Performing Lab: [facility] [place] [facility] [address] [facility] [address] [facility] [place] [facility] CBC AND DIFF (AUTO) BASOPHILS [#/VOLUME] IN BLOOD BY AUTOMATED COUNT 0.05 10*3/u L 0.01 - 0.13 08/09 Specimen Type: BLOOD No comment entered. Ordering Provider: SKYLAR ARRIOLA Report Released Date/Time: Aug 09, 2022 09:43 AM Reporting Lab: [facility] [place] [facility] [address] [facility] [address] Performing Lab: [facility] [place] [address] [address] [facility] [place] [facility] CBC AND DIFF (AUTO) IMMATURE GRANULOCYTE S/100 LEUKOCYTES IN BLOOD BY AUTOMATED COUNT 0.2 0.0 - 0.7 08/09 Specimen Type: BLOOD No comment entered. Ordering Provider: SKYLAR ARRIOLA Report Released Date/Time: Aug 09, 2022 09:43 AM Reporting Lab: [facility] [place] [facility] [address] [address] Performing Lab: [facility] [place] [address] [address] [facility] [place] [facility] CBC AND DIFF (AUTO) IMMATURE GRANULOCYTE S [#/VOLUME] IN BLOOD 0.02 10*3/u L 0.00 - 0.06 08/09 Specimen Type: BLOOD No comment entered. Ordering Provider: SKYLAR ARRIOLA Report Released Date/Time: Aug 09, 2022 09:43 AM Reporting Lab: [facility] [place] [facility] [address] [facility] [phone] Performing Lab: [facility] [place] [address] [address] [facility] [place] [facility] Vital Signs Combined list of inpatient and outpatient Vital Signs from Department of Defense and Veterans Affairs, ranging from 12 months to all on record, depending upon the facility. Vital Sign Value Date Comments Source SYSTOLIC BLOOD PRESSURE 125 05/03/20 23 09:44:04 [facility] DIASTOLIC BLOOD PRESSURE 68 023 09:44:04 [facility] [place] [facility] PULSE OXIMETRY 97% 05/03/2023 09:44:04 [facility] WEIGHT 173 05/03/2023 09:44:04 [facility] BMI 28kg/m2 05/03/2023 09[facility]44:04 [facility] PULSE 75 05/03/2023 09:44:04 [facility] RESPIRATION 20 05/03/2023 09:44:04 [facility] [place] [facility] Encounters Combined list of: 1) Encounters from Department of Veterans Affairs facilities going back up to thelast 18 months. 2) Encounters from the Department of Defense facilities going back up to 280 months. 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, left eye<br/ > SOSA,LACE Y J 12/18 [facility] [place] [facility] Outpatient Encounter [id number] 12/21 [facility] [place] [facility] [place] [facility] FIT SPECTACLES MONOFOCAL [id number] Diagnos is: ICD-10- CM Z46.0 Encount er for fit/adj st of spectac les and contact lenses< br/> MARIANNA GIBSON 12/21 [facility] OFFICE O/P EST SF 10-19 MIN [id number] Diagnos is: ICD-10- CM E11.9 Type 2 diabete s mellitu s without complic ations< br/> Juan A MACHUCA 01/09 [facility] Out[facility] Encounter [id number] 01/10 [facility] HEARING AID REPAIR/MOD IFYING [id number] Diagnos is: ICD-10- CM Z46.1 Encount er for fitting and adjustm ent of hearing aid<br/ > Huey PEREZ 01/16 [facility] REPAIR & ADJUST SPECTACLES [id number] Diagnos is: ICD-10- CM Z46.0 Encount er for fit/adj st of spectac les and contact lenses< br/> MARYLOU URIAS 01/19 [facility] En[facility] [id number] 02/20 [facility] Encounter [id number] 04/23 [facility] OFF[facility] O/P EST LOW 20-29 MIN [id number] Diagnos is: ICD-10- CM E11.22 Type 2 diabete s mellitu s w diabeti c chronic kidney disease
SKYLAR LEMUS 05/03 [facility] HEARING AID REPAIR/MOD IFYING [id number] Diagnos is: ICD-10- CM H90.3 Sensori neural hearing loss, bilater al
SENIOR,JOHNSON OLE L 05/24 [facility] Out[facility] En[facility] [id number] 06/01 [facility] OFF[facility] O/P EST SF 10 MIN [id number] Diagnos is: ICD-10- CM E11.9 Type 2 diabete s mellitu s without complic ations< br/> Juan A MACHUCA 06/06 [facility] En[facility] [id number] 09/24 [facility] Encounter [id number] 09/24 [facility] Encounter [id number] 10/22 [facility] Out[facility] Encounter [id number] Diagnos is: ICD-10- CM S46.911 A Strain unsp musc/fa sc/tend at shldr/u p arm, right arm, init
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
TOOTIE REARDON H 01/21 [facility] [place] [facility] [place] [facility] UNLISTED SPEC DERM SVC/PX [id number] 1. Diagnos is: ICD-10- CM Z13.89 Encount er for screeni ng for other disorde r
DARCIE HAIR ICA A 02/06 [facility] [place] [facility] [place] [facility] TRIM NAIL(S) [id number] 1. Diagnos is: ICD-10- CM E11.9 Type 2 diabete s mellitu s without complic ations< br/> VICENTE MANZANO GAMALIEL 02/06 [facility] [place] [facility] Outpatient Encounter [id number] Diagnos is: ICD-10- CM L57.0 Actinic keratos is
MARY ARIAS PH J 02/07 [facility] [place] [facility] Outpatient Encounter [id number] 02/07 [place] [facility] [place] [facility] Outpatient Encounter [id number] 02/10 [facility] [place] [facility] Social History Combined list of available smoking, tobacco, and other social history from Department of Defense and Veterans Affairs facilities. Social History Type Response Date Comment Source Tobacco smoking status NHIS VA-TOBACCO FORMER USER 05/03/2023 [place] [facility] [place] [facility] History of tobacco use [place]-TO[place]ACCO QUIT 15 YRS OR MORE 05/03/2023 [place] [facility] History of tobacco use [place]-TOBACCO FORMER USER 10/26/2021 [place] [facility] History of tobacco use [place]-TOBACCO FORMER USER 08/19/2020 [place] [facility] of [facility]/21/2018 [facility] [place] [facility] History of [facility] 05/21/2018 [facility] [place] [facility] History of tobacco use QUIT TOBACCO USE > 7 YEARS AGO 05/09/2017 quit 35 yrs ago [place] [facility] History of tobacco use LIFETIME NON-TOBACCO USER 05/09/2016 [facility] [place] [facility] History of tobacco use QUIT TOBACCO USE > 7 YEARS AGO 05/06/2015 pt states he stopped smoking 20 yrs ago [facility] [place] [facility] History of tobacco use QUIT TOBACCO USE > 7 YEARS AGO 04/05/2009 QUIT 15 YEARS AGO [facility] [place] [facility] Plan of Care List of future care activities from Department of Veterans Affairs facilities. Additional future care activities may be listed in the Assessment and Plan section. Date/Time Care Activity Care Activity Detail Facili ty 04/17/2024 AMBULATORY - MEDICINE AM[place]ULATORY [place] [facility] [place] [facility] 06/09/2024 AMBULATORY - MEDICINE AMBULATORY - [place] [facility] 09/23/2024 AMBULATORY - MEDICINE AMBULATORY - MEDICI NE [facility] [place] [facility]
== END 2024-04-16 10:02 | disposition home or self-care (01) ==
PROVIDERS: PCP Family Medicine; Visit Provider Internal Medicine Nephrology
DX: I12.9 Hypertensive chronic kidney disease with stage 1 through stage 4 chronic kidney disease, or unspecified chronic kidney disease (principal); N18.31 Chronic kidney disease, stage 3a
CPT/HCPCS: 99214

== ENCOUNTER 2024-04-21 08:02 | Outpatient (AMB) | payer BC, SELFPAY ==
--- OUTSIDE RECORDS SUMMARY | 2024-04-21 08:04 | XMS_ITS | Encounter Summary ---
Author Name [facility] [place] [place] Organization [place] Address [address] [place] [address] Care Team Providers Care Rater Associate Name Role Phone SKYLAR GREGORY Primary Care [...] Witt's Name Patient's Relationship to Policy Witt [facility] (WNR) MEDICARE ADVANTAGE [facility] (WNR) May 07, 2017 [id number] [phone] MILLIE AG SR PATIENT Selected Encounter [...] - MEDICINE [facility] [place] [place] [facility] May 24, 2023 09:00 AM AMBULATORY - REHAB MEDICIN E [facility] [place] [facility] Jun 01, 2023 09:30 AM AMBULATORY - MEDICINE [facility] [place] [facility] Jun 06, 2023 08:00 AM AMBULATORY - MEDICINE [place] [facility] [place] [facility] Social History: Smoking Status (Most current) [...] 26, 2021 10:00 AM VA-TOBACCO FORMER USER [place] [facility] [place] [facility] Tobacco Use History This section includes a history of the smoking, or tobacco-related health factors, that were collected on or before the date of the Encounter. The data comes from the [place] facility where the Encounter took place. Date/Time Smoking Status/Tobac co Use Comment Facility Oct 26, 2021 10:00 AM VA-TOBACCO QUIT 15 YRS OR MORE [facility] [place] [facility] Aug 19, 2020 08:30 AM VA-TOBACCO FORMER USER [facility] [place] [facility] Aug 19, 2020 08:30 AM VA-TOBACCO QUIT 15 YRS OR MORE [facility] [place] [facility] May 21, 2018 09:36 AM VA-TOBACCO FORMER USER [facility] [place] [facility] May 21, 2018 09:36 AM VA-TOBACCO QUIT 15 YRS OR MORE [facility] [place] [facility] May 21, 2018 08:51 AM VA-TOBACCO NEVER USED [facility] [place] [facility] May 09, 2017 09:38 AM QUIT TOBACCO USE > 7 YEARS AGO quit 35 yrs ago [facility] [place] [facility] May 09, 2016 09:45 AM LIFETIME NON-TOBACCO USER [facility] [place] [facility] May 06, 2015 08:02 AM QUIT TOBACCO USE > 7 YEARS AGO pt states he stopped smoking 20 yrs [facility] Apr 05, 2009 02:04 PM QUIT TOBACCO USE > 7 YEARS AGO QUIT 15 [facility]ARS AGO [facility] Encounter Notes: All associated encounter [...] By: 04/23/2023 11:14 /kaylynn/ MARTIR ACUNA Advanced Clinical Engineering Manager === --- Original Document --- 04/23/23 CCC: SCHEDULING ADMINISTRATION: Patient Demographics Patient Name: MILLIE AG Patient Primary Phone: [phone] Patient Primary Address: [address] [place] [address] Patient : 1935 Patient Age: 88 Caller/Recipient Relation to Patient: Self Scheduling Cannot Complete Scheduling Action Reason: Restricted / Unavailable Clinic Requested Service(s): Primary Care Scheduling Note Reason: Cannot Complete Appointment Request Open Request: None of the above Scheduling Note Comments: Patient is requesting to reschedule their 04/23/2023 1:00PM PCP appointment. This mortgage underwriter attempted but was unable. Patient can be reached back at [phone]. /kaylynn/ CHELSEA SUNN1 [facility] Signed: 04/23/2023 08:56 Receipt Acknowledged By: 04/23/2023 10:39 /kaylynn/ CELSO JAIN, RN, CNL PRIMARY CARE TEAM NURSE 04/23/2023 11:12 /kaylynn/ Tsering Aguilar dried fruit washer Staff Nurse 04/23/2023 ADDENDUM STATUS: COMPLETED Appt rescheduled to 05/03 @ 9:30. /kaylynn/ MARTIR ACUNA Advanced Clinical Engineering Manager Signed: 04/23/2023 11:14 MINERVA CASTRO [place] [facility] [place] [facility] Apr 23, 2023 08:56 AM ADMINISTRATIVE NOTE: LOCAL TITLE: CCC: SCHEDULING ADMINISTRATION STANDARD TITLE: ADMINISTRATIVE NOTE DATE OF NOTE: APR 23, 2023@08:56:34 ENTRY DATE: APR 23, 2023@08:56:34 AUTHOR: CHELSEA RIVERA COSIGNER: URGENCY: STATUS: COMPLETED CCC: SCHEDULING ADMINISTRATION Has ADDENDA Patient Demographics Patient Name: MILLIE AG Patient Primary Phone: [phone] Patient Primary Address: [address] [place] [address] Patient : 1935 Patient Age: 88 Caller/Recipient Relation to Patient: Self Scheduling Cannot Complete Scheduling Action Reason: Restricted / Unavailable Clinic Requested Service(s): Primary Care Scheduling Note Reason: Cannot Complete Appointment Request Open Request: None of the above Scheduling Note Comments: Patient is requesting to reschedule their 04/23/2023 1:00PM PCP appointment. This mortgage underwriter attempted but was unable. Patient can be reached back at [phone]. /kaylynn/ CHELSEA RIVERA VISN1 [facility] Signed: 04/23/2023 08:56 Receipt Acknowledged By: 04/23/2023 10:39 /kaylynn/ CELSO JAIN, RN, CNL PRIMARY CARE TEAM NURSE 04/23/2023 11:12 /kaylynn/ Tsering Aguilar dried fruit washer Staff Nurse 04/23/2023 ADDENDUM STATUS: COMPLETED Forwarding to PACT LISETHA /CELSO Steele, RN, CNL PRIMARY CARE TEAM NURSE Signed: 04/23/2023 10:39 Receipt Acknowledged By: 04/23/2023 11:14 /jannette ACUNA Advanced Clinical Engineering Manager 04/23/2023 ADDENDUM STATUS: COMPLETED Appt rescheduled to 05/03 @ 9:30. /es/ MARTIR ACUNA Advanced Clinical Engineering Manager Signed: 04/23/2023 11:14 [facility]
--- OUTSIDE RECORDS SUMMARY | 2024-04-21 08:04 | XMS_ITS ---
Author Name [facility] [place] Organization [place] Address [address] [place] [address] Care Team Providers Care Transformation Consultant Name Role Phone SKYLAR GREGORY Primary Care [...] Witt's Name Patient's Relationship to Policy Witt [facility] (WNR) MEDICARE ADVANTAGE [facility] (WNR) May 07, 2017 [id number] MILLIE AG SR PATIENT Selected Encounter This section includes the information on record at [place] for the Encounter. 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 Date/Time Primary/Secondary Diagnosis Diagnosis Name Provider Source May 03, 2023 10:02 AM PRIMARY Type 2 diabetes mellitus w diabetic chronic kidney disease SKYLAR GREGORY [facility] May 03, 2023 10:02 AM SECONDARY Chronic kidney disease, unspecified Juan AKristopherSKYLAR MANDUJANO Josie [facility] May 03, 2023 10:02 AM SECONDARY Unspecified sensorineural hearing loss Juan AGORDONNAZIASKYLAR ESPANA Josie [facility] Plan of Treatment: Future Appointments (+ 6 months) and Future Tests (+/- 45 days) The Plan of Treatment section includes future care activities for the patient from all [place] [facility] This section includes future appointments and [...] 09:00 AM AMBULATORY - REHAB MEDICIN E [facility] Jun 01, 2023 09:30 AM AMBULATORY - MEDICINE [facility] Jun 06, 2023 08:00 AM AMBULATORY - MEDICINE [facility]L [facility] Oct 25, 2023 08:30 AM AMBULATORY - MEDICINE [facility]TR[facility] Vital Signs: All taken on the encounter date This section contains inpatient and outpatient Vital Signs collected on the date of the Encounter. Date/Time Temperature Pulse Blood Pressure Respiratory Rate SP02 Pain Height Weight Body Mass Index Source May 03, 2023 09:44 AM 75 /min 125/68 mm[Hg] 20 /min 97 % 173 lb [address] [facility] [address] Social History: Smoking Status (Most current) [...] 03, 2023 09:30 AM VA-TOBACCO FORMER USER [facility] Tobacco Use History This section includes a history of the smoking, or tobacco-related health factors, that were collected on or before the date of the Encounter. The data comes from the [place] facility where the Encounter took place. Date/Time Smoking Status/Tobac co Use Comment Facility May 03, 2023 09:30 AM VA-TOBACCO QUIT 15 YRS OR MORE [facility] [facility] Oct 26, 2021 10:00 AM VA-TOBACCO FORMER USER [facility] [place] [facility] Oct 26, 2021 10:00 AM VA-TOBACCO QUIT 15 YRS OR MORE [facility] [place] [facility] Aug 19, 2020 08:30 AM VA-TOBACCO FORMER USER [facility] [place] [facility] Aug 19, 2020 08:30 AM VA-TOBACCO QUIT 15 YRS OR MORE [facility] [place] [facility] May 21, 2018 09:36 AM VA-TOBACCO FORMER USER [facility] [place] [facility] May 21, 2018 09:36 AM VA-TOBACCO QUIT 15 YRS OR MORE [place] [facility] [place] [facility] May 21, 2018 08:51 AM VA-TOBACCO NEVER USED [place] [facility] [place] [facility] May 09, 2017 09:38 AM QUIT TOBACCO USE > 7 YEARS AGO quit 35 yrs ago [facility] [place] [facility] May 09, 2016 09:45 AM LIFETIME NON-TOBACCO USER [facility] [place] [facility] May 06, 2015 08:02 AM QUIT TOBACCO USE > 7 YEARS AGO pt states he stopped smoking 20 yrs ago [facility] [place] [facility] Apr 05, 2009 02:04 PM QUIT TOBACCO USE > 7 YEARS AGO QUIT 15 YEARS AGO [place] [facility] [place] [facility] Encounter Notes: All associated encounter [...] Not worried about housing near future [facility] [place] reports the following: Within the past 12 [...] 05/03/2023 09:48 TSERING REARDON [facility] [place] [facility] May 03, 2023 08:34 AM PHYSICIAN NOTE: LOCAL TITLE: NOTE STANDARD TITLE: PHYSICIAN NOTE DATE OF NOTE: MAY 03, 2023@08:34 ENTRY DATE: MAY 03, 2023@08:34:13 AUTHOR: JEFF GREGORY EXP COSIGNER: URGENCY: STATUS: COMPLETED HISTORY OF PRESENT ILLNESS: MILLIE AG, is a 88 yo WHITE MALE [place] who presents at the [place] [facility] CC. hearing loss HPI. vet here [...] of hand 2. Low Back Pain (SCT 263747324) 3. Diabetes Mellitus Type 2 (SCT 59031831) 4. Microalbuminuria due to type 2 diabetes mellitus 5. Chronic kidney disease due to type 2 diabetes mellitus 6. Abnormal vision 7. Benign Prostatic Hypertrophy Without Outflow Obstruction (SCT 356962234) 8. Essential hypertension 9. Hypothyroidism (SNOMED CT 95561158) 10. Transient Ischemic Attack 11. HLD - Hyperlipidemia 12. Hearing Loss, Partial HISTORY: PERIOD OF SERVICE - [facility] FROM Jun TO Apr COMBAT SERVICE INDICATED: [...] of active outpatient prescriptions dispensed from this [place] (local) and dispensed from another [place] or [facility] facility (remote) as well as [...] MD PHYSICIAN Signed: 05/03/2023 10:02 KERI GREGORY [place] [facility]
--- OUTSIDE RECORDS SUMMARY | 2024-04-21 08:04 | XMS_ITS | Encounter Summary ---
Author Name [facility] [place] [place] Organization [place] Address [address] [place] [address] Care Team Providers Care Practice Advisor Name Role Phone SKYLAR GREGORY Primary Care [...] Witt's Name Patient's Relationship to Policy Witt [facility] (WNR) MEDICARE ADVANTAGE [facility] (WNR) May 07, 2017 [id number] MILLIE AG SR PATIENT Selected Encounter This section includes the information on record at [place] for the Encounter. Date/Time Encounter Type Encounter Description Reason Pro vider Source September 25, 2023 11:08 AM Outpatient Encounter PODIATRY IHE Encounter Template Text not used by [place] Plan of Treatment: Future Appointments (+ 6 months) and Future Tests (+/- 45 days) The Plan of Treatment section includes future care activities for the patient from all [place] treatmentfacilities. This section includes future appointments and future orders which are active, pending or scheduled. Future Appointments This section includes appointments that were scheduled to occur 6 months from the date of the Encounter, up to a maximum of 20 appointments. The data comes from all [place] treatment facilities. Appointment Date/Time Appointment Type Appointme nt Facility Name Oct 25, 2023 08:30 AM AMBULATORY - MEDICINE [facility] [place] [facility] Dec 25, 2023 08:30 AM AMBULATORY - MEDICINE [facility] [place] [facility] Dec 25, 2023 09:00 AM AMBULATORY - MEDICINE [facility] [place] [facility] Jan 22, 2024 09:30 AM AMBULATORY - MEDICINE [facility] [place] [facility] Feb 07, 2024 02:00 PM AMBULATORY - NONE [facility] [place] [facility] Feb 07, 2024 03:00 PM AMBULATORY - MEDICINE [facility] [place] [facility] Social History: Smoking Status (Most current) and Tobacco Use (All prior to encounter date) This section includes the most current, and the historical, smoking and tobacco- related health factors from the [place] facility where the Encounter took place. Current Smoking Status This section includes the most current smoking, or tobacco-related health factor, from the [place] facility where the Encounter took place. Date/Time Current Smoking Status Comment [facility] it May 03, 2023 09:30 AM VA-TOBACCO FORMER USER [facility] [place] [facility] Tobacco Use History This section includes a history of the smoking, or tobacco-related health factors, that were collected on or before the date of the Encounter. The data comes from the [place] facility where the Encounter took place. Date/Time Smoking Status/Tobac co Use Comment Facility May 03, 2023 09:30 AM VA-TOBACCO QUIT 15 YRS OR MORE [facility] [place] [facility] Oct 26, 2021 10:00 AM VA-TOBACCO FORMER USER [facility] [place] [facility] Oct 26, 2021 10:00 AM VA-TOBACCO QUIT 15 YRS OR MORE [facility] [place] [facility] Aug 19, 2020 08:30 AM VA-TOBACCO FORMER USER [facility] [place] [facility] Aug 19, 2020 08:30 AM VA-TOBACCO QUIT 15 YRS OR MORE [facility] [place] [facility] May 21, 2018 09:36 AM VA-TOBACCO FORMER USER [facility] [place] [facility] May 21, 2018 09:36 AM VA-TOBACCO QUIT 15 YRS OR MORE [facility] [place] [facility] May 21, 2018 08:51 AM VA-TOBACCO NEVER USED [facility] [place] [facility] May 09, 2017 09:38 AM QUIT TOBACCO USE > 7 YEARS AGO quit 35 yrs ago [facility] [place] [facility] May 09, 2016 09:45 AM LIFETIME NON-TOBACCO USER [facility] [place] [facility] May 06, 2015 08:02 AM QUIT TOBACCO USE > 7 YEARS AGO pt states he stopped smoking 20 yrs ago [facility] Apr 05, 2009 02:04 PM QUIT TOBACCO USE > 7 YEARS AGO QUIT 15 YEARS AGO [facility] Encounter Notes: All associated encounter notes This [...] Will c/b later. /kaylynn/ ELISA ISRAEL ADVANCED FIELD TRAINER Signed: 09/25/2023 11:10 ELISA ISRAEL [facility]
--- OUTSIDE RECORDS SUMMARY | 2024-04-21 08:04 | XMS_ITS | Encounter Summary ---
Author Name [facility] Address [address] [place] [address] Care Team Providers Care Gyroscope Technician Name Role Phone SKYLAR GREGORY Primary Care [...] Witt's Name Patient's Relationship to Policy Witt [facility] (WNR) MEDICARE ADVANTAGE [facility] (WNR) May 07, 2017 [id number] [phone] MILLIE AG SR PATIENT Selected Encounter This section includes the information on record at [place] for the Encounter. Date/Time Encounter Type Encounter Description Reason Pro vider Source Jun 01, 2023 09:30 AM Outpatient Encounter PODIATRY IHE Encounter Template Text not used by [place] Plan of Treatment: Future Appointments (+ 6 months) and Future Tests (+/- 45 days) The Plan of Treatment section includes future care activities for the patient from all [place] treatmentfacilities. This section includes future appointments and future orders which are active, pending or scheduled. Future Appointments This section includes appointments that were scheduled to occur 6 months from the date of the Encounter, up to a maximum of 20 appointments. The data comes from all [place] treatment facilities. Appointment Date/Time Appointment Type Appointme nt Facility Name Jun 06, 2023 08:00 AM [facility] [place] [facility] Oct 25, 2023 08:30 AM [place]UL[facility] [place] [facility] Social History: Smoking Status (Most current) and Tobacco Use (All prior to encounter date) This section includes the most current, and the historical, smoking and tobacco- related health factors from the [place] facility where the Encounter took place. Current Smoking Status This section includes the most current smoking, or tobacco-related health factor, from the [place] facility where the Encounter took place. Date/Time Current Smoking Status Comment Facil it May 03, 2023 09:30 AM VA-TOBACCO FORMER USER [place] [facility] Tobacco Use History This section includes a history of the smoking, or tobacco-related health factors, that were collected on or before the date of the Encounter. The data comes from the [place] facility where the Encounter took place. Date/Time Smoking Status/Tobac co Use Comment Facility May 03, 2023 09:30 AM VA-TOBACCO QUIT 15 YRS OR MORE [facility] Oct 26, 2021 10:00 AM VA-TOBACCO FORMER USER [facility] Oct 26, 2021 10:00 AM VA-TOBACCO QUIT 15 YRS OR MORE [facility] Aug 19, 2020 08:30 AM VA-TOBACCO FORMER USER [facility] Aug 19, 2020 08:30 AM VA-TOBACCO QUIT 15 YRS OR MORE [facility] May 21, 2018 09:36 AM VA-TOBACCO FORMER USER [facility] May 21, 2018 09:36 AM VA-TOBACCO QUIT 15 YRS OR MORE [facility] May 21, 2018 08:51 AM VA-TOBACCO NEVER USED [facility] May 09, 2017 09:38 AM QUIT TOBACCO USE > 7 YEARS AGO quit 35 yrs ago [facility] May 09, 2016 09:45 AM LIFETIME NON-TOBACCO USER [facility] May 06, 2015 08:02 AM QUIT TOBACCO USE > 7 YEARS AGO pt states he stopped smoking 20 yrs ago [facility] Apr 05, 2009 02:04 PM QUIT TOBACCO USE > 7 YEARS AGO QUIT 15 YEARS AGO [facility] Encounter Notes: All associated encounter notes This section contains the clinical notes associated to the Encounter. Date/Time Encounter Note(s) Provider Source Jun 01, 2023 11:44 AM CLERICAL NOTE: LOCAL TITLE: APPOINTMENT NO SHOW STANDARD TITLE: CLERICAL NOTE DATE OF NOTE: JUN 01, 2023@11:44 ENTRY DATE: JUN 01, 2023@11:44:54 AUTHOR: GRANT CAMERON EXP COSIGNER: URGENCY: STATUS: COMPLETED Patient Name: MILLIE AG Patient SSN: [id number] Date and time of Appointment No show [...] 10:00 CWM/NO/PACT 4 /es/ GRANT CAMERON [employer] SOFTWARE DESIGNER Signed: 06/01/2023 11:45 GRANT CAMERON [facility]
--- OUTSIDE RECORDS SUMMARY | 2024-04-21 08:04 | XMS_ITS | Continuity of Care Document ---
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 (SCT 741152131) Active 05/07/19 19 Condition May 21, 2018 Entered By: MC DAN Comment: treated with finasteride [facility] Essential hypertension Active 05/07/19 09 Condition [facility] Hearing loss (SNOMED CT 31318518) Active 05/07/19 09 Condition [facility] HLD - Hyperlipidemia Active 05/07/19 09 Condition [facility] Hypothyroidism (SNOMED CT 12810173) Active 05/07/19 09 Condition [facility] Transient Ischemic Attack Active 05/07/19 09 Condition [facility] 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 Active Condition Apr 17 24 Entered By: SKYLAR GREGORY Comment: stable creat level approx 1.5 over past year ( 2021)/ vet has stable renal fxn per Dr Khalida Ang [facility] Diabetes Mellitus Type 2 (SCT [id number]) Active Condition Apr 17, 2024 Entered By: SKYLAR GREGORY Comment: vet under care of community PCP/ Dr Sheldon Muniz- good glycemic control [facility] History of actinic keratosis Active Condition Feb 08, 2024 Entered By: SKYLAR GREGORY Comment: see tele derm-lesions on right side of face/ vet needs cryotx per derm [facility] Low Back Pain (SCT [id number]) Active Condition Oct 26, 2021 Entered By: [...] [facility] Diagnosis: ICD-10-CM E11.9 Type 2 diabetes mellitus without complications Active Diagnosis [facility] Diagnosis: ICD-10-CM L57.0 Actinic keratosis Active Diagnosis [facility] Diagnosis: ICD-10-CM Z13.89 Encounter for screening for [...] aid Active Diagnosis [facility] [facility] Medications Combined list of outpatient medications from Department of Defense and Veterans Affairs facilities.Medications provided include 1) outpatient medications from the last 15 months, and 2) patient-reported medications. Medication Details Route Status Patient Instructions Prescription Expires Prescription Number Last Dispense Date Ordering Provider Order Date Order Qty Source AMLODIPINE BESYLATE 2.5MG TAB TAKE ONE TABLET BY MOUTH ONCE DAILY ORAL ACTIVE D'ALESSAN KERI MIRANDA G 2023 [facility] BUMETANIDE 1MG TAB TAKE ONE TABLET BY MOUTH ONCE DAILY ORAL ACTIVE D'ALESSAN RUBENKERI G 2023 [facility] CARBOXYMETH YLCELLULOSE NA 0.5% SOLN,OPH INSTILL 1 DROP INTO EACH EYE FOUR TIMES A DAY FOR DRY EYE OPHTHA LMIC ACTIVE 12/25/2024 [id number] SOSA,LAC EY J 2023 45 [facility] GLIPIZIDE 5MG TAB TAKE ONE-HALF TABLET BY MOUTH ORAL ACTIVE D'ALESSAN KERI MIRANDA G 2023 [facility] LEVOTHYROXI NE NA 125MCG TAB (SYNTHROID) TAKE ONE TABLET BY MOUTH QD ORAL ACTIVE D'ALESSAN KERI MIRANDA G 2023 [facility] LISINOPRIL 10MG TAB TAKE ONE TABLET BY MOUTH ONCE DAILY ORAL ACTIVE D'ALESSAN RUBENKREI CASAREZ G 2023 [facility] PRAVASTATIN NA 40MG TAB TAKE ONE TABLET BY MOUTH AT BEDTIME ORAL ACTIVE PRASHANT DAN 2009 [facility] [place] [facility] Immunizations Combined list of available immunizations from the Department of Defense and Veterans Affairs facilities. Immunization Series Date Given Administered By Site Reaction Lot Number CVX Code Drug Pegger Dobby Looms Status Comments Source INFLUENZA, UNSPECIFIED FORMULATION 2023 88 complet ed [facility] [place] [facility] INFLUENZA, UNSPECIFIED FORMULATION 2021 88 complet ed [facility] COVID-19 (MODERNA), MRNA, LNP-S, PF, 100 MCG OR 50 MCG DOSE 3 2020 207 complet ed MOD; [id number]; 2 [facility] COVID-19 (MODERNA), MRNA, LNP-S, PF, 100 MCG/0.5 ML DOSE 2 2020 207 complet ed MOD; [id number]; 1 [facility] COVID-19 (MODERNA), MRNA, LNP-S, PF, 100 MCG/0.5 ML DOSE 1 2020 207 complet ed MOD; [id number]; 1 [facility] [...] [facility] FLU,3 YRS (HISTORICAL) 2008 88 complet ed [facility] PNEUMOCOCCAL, UNSPECIFIED FORMULATION 2003 109 complet ed [facility] Results Combined list of recent chemistry, hematology [...] Aug 09, 2022 09:43 AM Reporting Lab: [facility] [address] [facility] [address] Performing Lab: [facility] [address] [facility] [address] [facility] HEMOGLOBI N A1C PANEL HEMOGLOBIN A1C/HEMOGLO [...] Aug 09, 2022 09:43 AM Reporting Lab: [facility] [address] [facility] [address] Performing Lab: [facility] [address] [facility] [address] [facility] BASIC METABOLIC PANEL (non-fast ing) UREA NITROGEN [MASS/VOLUM E] IN SERUM OR PLASMA 27 mg/dL 7 - 25 08/09 H Specimen Type: SERUM Comment: BUN Verified by repeat analysis. Ordering Provider: SKYLAR ARRIOLA Report Released Date/Time: Aug 09, 2022 09:43 AM Reporting Lab: [facility] [address] [address] Performing Lab: [facility] [address] [address] [facility] BASIC METABOLIC PANEL (non-fast ing) GLUCOSE [MASS/VOLUM E] IN SERUM OR PLASMA 126 mg/dL 65 - 100 08/09 H Specimen Type: SERUM Comment: BUN Verified by repeat analysis. Ordering Provider: SKYLAR ARRIOLA Report Released Date/Time: Aug 09, 2022 09:43 AM Reporting Lab: [facility] [address] [address] Performing Lab: [facility] [address] [address] [facility] BASIC METABOLIC PANEL (non-fast ing) SODIUM [MOLES/VOLU ME] IN SERUM OR PLASMA 142 mmol/L 135 - 145 08/09 Specimen Type: SERUM Comment: BUN Verified by repeat analysis. Ordering Provider: SKYLAR ARRIOLA Report Released Date/Time: Aug 09, 2022 09:43 AM Reporting Lab: [facility] [address] [address] Performing Lab: [facility] [address] [address] [facility] BASIC METABOLIC PANEL (non-fast ing) POTASSIUM [MOLES/VOLU ME] IN SERUM OR PLASMA 4.6 mmol/L 3.5 - 5.0 08/09 Specimen Type: SERUM Comment: BUN Verified by repeat analysis. Ordering Provider: SKYLAR ARRIOLA Report Released Date/Time: Aug 09, 2022 09:43 AM Reporting Lab: [facility] [address] [address] Performing Lab: [facility] [address] [facility] [address] [facility] BASIC METABOLIC PANEL (non-fast ing) CHLORIDE [MOLES/VOLU ME] IN SERUM OR PLASMA 105 mmol/L 100 - 110 08/09 Specimen Type: SERUM Comment: BUN Verified by repeat analysis. Ordering Provider: SKYLAR ARRIOLA Report Released Date/Time: Aug 09, 2022 09:43 AM Reporting Lab: [facility] [address] [address] Performing Lab: [address] [address] [facility] BASIC METABOLIC PANEL (non-fast ing) CARBON DIOXIDE, TOTAL [MOLES/VOLU ME] IN SERUM OR PLASMA 26 meq/L 20 - 30 08/09 Specimen Type: SERUM Comment: BUN Verified by repeat analysis. Ordering Provider: SKYLAR ARRIOLA Report Released Date/Time: Aug 09, 2022 09:43 AM Reporting Lab: [address] [address] Performing Lab: [address] [address] [facility] BASIC METABOLIC PANEL (non-fast ing) CREATININE [MASS/VOLUM E] IN SERUM OR PLASMA 1.92 mg/dL 0.50 - 1.40 08/09 H Specimen Type: SERUM Comment: BUN Verified by repeat analysis. Ordering Provider: SKYLAR ARRIOLA Report Released Date/Time: Aug 09, 2022 09:43 AM Reporting Lab: [facility] [address] [address] Performing Lab: [facility] [address] [address] [facility] BASIC METABOLIC PANEL (non-fast ing) GLOMERULAR FILTRATION RATE/1.73 SQ M.PREDICTED [VOLUME RATE/AREA] IN SERUM, PLASMA OR BLOOD BY CREATININE- BASED FORMULA (CKD-EPI) 33 mL/min 60 08/09 L Specimen Type: SERUM Comment: BUN Verified by repeat analysis. Ordering Provider: SKYLAR ARRIOLA Report Released Date/Time: Aug 09, 2022 09:43 AM Reporting Lab: [facility] [address] [address] Performing Lab: [facility] [address] [address] [facility] TSH THYROTROPIN [UNITS/VOLU ME] IN SERUM OR PLASMA 11.71 u[IU]/ mL 0.35 - 5.00 08/09 H Specimen Type: SERUM Comment: BUN Verified by repeat analysis. Ordering Provider: SKYLAR ARRIOLA Report Released Date/Time: Aug 09, 2022 09:43 AM Reporting Lab: [place] [facility] [place] [address] [address] Performing Lab: [facility] [place] [address] [address] [facility] [place] [facility] LIVER FUNCTION PROTEIN [MASS/VOLUM E] IN SERUM OR PLASMA 7.5 g/dL 6.0 - 8.3 08/09 Specimen Type: SERUM Comment: BUN Verified by repeat analysis. Ordering Provider: SKYLAR ARRIOLA Report Released Date/Time: Aug 09, 2022 09:43 AM Reporting Lab: [facility] [place] [address] [address] Performing Lab: [facility] [place] [address] [address] [facility] [place] [facility] LIVER FUNCTION ALBUMIN [MASS/VOLUM E] IN SERUM OR PLASMA 4.6 g/dL 3.5 - 5.0 08/09 Specimen Type: SERUM Comment: BUN Verified by repeat analysis. Ordering Provider: SKYLAR ARRIOLA Report Released Date/Time: Aug 09, 2022 09:43 AM Reporting Lab: [facility] [place] [address] [address] Performing Lab: [facility] [place] [facility] [address] [facility] [address] [facility] LIVER FUNCTION ALKALINE PHOSPHATASE [ENZYMATIC ACTIVITY/VO LUME] IN SERUM OR PLASMA 87 U/L 40 - 150 08/09 Specimen Type: SERUM Comment: BUN Verified by repeat analysis. Ordering Provider: SKYLAR ARRIOLA Report Released Date/Time: Aug 09, 2022 09:43 AM Reporting Lab: [facility] [place] [facility] [address] [facility] [address] Performing Lab: [facility] [place] [address] [address] [place] [facility] [place] [facility] LIVER FUNCTION ASPARTATE AMINOTRANSF ERASE [ENZYMATIC ACTIVITY/VO LUME] IN SERUM OR PLASMA 34 U/L 5 - 34 08/09 Specimen Type: SERUM Comment: BUN Verified by repeat analysis. Ordering Provider: SKYLAR ARRIOLA Report Released Date/Time: Aug 09, 2022 09:43 AM Reporting Lab: [facility] [place] [address] [address] Performing Lab: [facility] [place] [address] [address] [place] [facility] [place] [facility] LIVER FUNCTION ALANINE AMINOTRANSF ERASE [ENZYMATIC ACTIVITY/VO LUME] IN SERUM OR PLASMA 35 U/L 6 - 55 08/09 Specimen Type: SERUM Comment: BUN Verified by repeat analysis. Ordering Provider: SKYLAR ARRIOLA Report Released Date/Time: Aug 09, 2022 09:43 AM Reporting Lab: [facility] [address] [address] Performing Lab: [facility] [address] [address] [place] [facility] [place] [facility] LIVER FUNCTION BILIRUBIN.T OTAL [MASS/VOLUM E] IN SERUM OR PLASMA 0.6 mg/dL 0.2 - 1.2 08/09 Specimen Type: SERUM Comment: BUN Verified by repeat analysis. Ordering Provider: SKYLAR ARRIOLA Report Released Date/Time: Aug 09, 2022 09:43 AM Reporting Lab: [facility] [place] [address] [address] Performing Lab: [facility] [place] [address] [address] [place] [facility] [place] [facility] CBC AND DIFF (AUTO) LEUKOCYTES [#/VOLUME] IN BLOOD BY AUTOMATED COUNT 9.01 10*3/u L 4.50 - 11.00 08/09 Specimen Type: BLOOD No comment entered. Ordering Provider: SKYLAR ARRIOLA Report Released Date/Time: Aug 09, 2022 09:43 AM Reporting Lab: [facility] [place] [address] [address] Performing Lab: [facility] [place] [address] [address] [facility] [place] [facility] CBC AND DIFF (AUTO) ERYTHROCYTE S [#/VOLUME] IN BLOOD BY AUTOMATED COUNT 3.97 10*6/u L 4.23 - 5.66 08/09 L Specimen Type: BLOOD No comment entered. Ordering Provider: SKYLAR ARRIOLA Report Released Date/Time: Aug 09, 2022 09:43 AM Reporting Lab: [facility] [place] [address] [address] Performing Lab: [facility] [place] [address] [address] [facility] [place] [facility] CBC AND DIFF (AUTO) HEMOGLOBIN [MASS/VOLUM E] IN BLOOD 14.1 g/dL 12.8 - 17 08/09 Specimen Type: BLOOD No comment entered. Ordering Provider: SKYLAR ARRIOLA Report Released Date/Time: Aug 09, 2022 09:43 AM Reporting Lab: [facility] [place] [address] [address] Performing Lab: [facility] [place] [address] [address] [place] [facility] [place] [facility] CBC AND DIFF (AUTO) HEMATOCRIT [VOLUME FRACTION] OF BLOOD BY AUTOMATED COUNT 41.5 39.2 - 50.4 08/09 Specimen Type: BLOOD No comment entered. Ordering Provider: SKYLAR ARRIOLA Report Released Date/Time: Aug 09, 2022 09:43 AM Reporting Lab: [facility] [place] [facility] [address] [facility] [address] Performing Lab: [facility] [place] [facility] [address] [facility] [address] [facility] [place] [facility] CBC AND DIFF (AUTO) MCV [ENTITIC VOLUME] BY AUTOMATED COUNT 104.5 fL 82 - 99 08/09 H Specimen Type: BLOOD No comment entered. Ordering Provider: SKYLAR ARRIOLA Report Released Date/Time: Aug 09, 2022 09:43 AM Reporting Lab: [facility] [place] [address] [address] Performing Lab: [facility] [place] [address] [address] CBC AND DIFF (AUTO) MCHC [MASS/VOLUM E] BY AUTOMATED COUNT 34.0 g/dL 30.8 - 35.1 08/09 Specimen Type: BLOOD No comment entered. Ordering Provider: SKYLAR ARRIOLA Report Released Date/Time: Aug 09, 2022 09:43 AM Reporting Lab: [facility] [place] [address] [address] Performing Lab: [facility] [place] [address] [address] [place] [facility] [place] [facility] CBC AND DIFF (AUTO) PLATELETS [#/VOLUME] IN BLOOD BY AUTOMATED COUNT 174 10*3/u L 140 - 360 08/09 Specimen Type: BLOOD No comment entered. Ordering Provider: SKYLAR ARRIOLA Report Released Date/Time: Aug 09, 2022 09:43 AM Reporting Lab: [facility] [place] [facility] [address] [facility] [address] Performing Lab: [facility] [place] [facility] [address] [facility] [address] [facility] CBC AND DIFF (AUTO) ERYTHROCYTE DISTRIBUTIO N WIDTH [RATIO] BY AUTOMATED COUNT 13.2 12.0 - 16.0 08/09 Specimen Type: BLOOD No comment entered. Ordering Provider: SKYLAR ARRIOLA Report Released Date/Time: Aug 09, 2022 09:43 AM Reporting Lab: [facility] [place] [facility] [address] [facility] [address] Performing Lab: [facility] [place] [facility] [address] [facility] [address] [facility] CBC AND DIFF (AUTO) MONOCYTES [#/VOLUME] IN BLOOD BY AUTOMATED COUNT 0.55 10*3/u L 0.30 - 1.10 08/09 Specimen Type: BLOOD No comment entered. Ordering Provider: SKYLAR ARRIOLA Report Released Date/Time: Aug 09, 2022 09:43 AM Reporting Lab: [facility] [place] [facility] [address] [facility] [address] Performing Lab: [facility] [place] [facility] [address] [facility] [address] [facility] CBC AND DIFF (AUTO) MCH [ENTITIC MASS] BY AUTOMATED COUNT 35.5 pg 26.2 - 32.6 08/09 H Specimen Type: BLOOD No comment entered. Ordering Provider: SKYLAR ARRIOLA Report Released Date/Time: Aug 09, 2022 09:43 AM Reporting Lab: [facility] [place] [facility] [address] [facility] [address] Performing Lab: [facility] [place] [facility] [address] [facility] [address] [facility] CBC AND DIFF (AUTO) NEUTROPHILS /100 LEUKOCYTES IN BLOOD BY AUTOMATED COUNT 73.2 43.7 - 75.8 08/09 Specimen Type: BLOOD No comment entered. Ordering Provider: SKYLAR ARRIOLA Report Released Date/Time: Aug 09, 2022 09:43 AM Reporting Lab: [facility] [address] [facility] [address] Performing Lab: [facility] [address] [facility] [address] [facility] CBC AND DIFF (AUTO) LYMPHOCYTES /100 LEUKOCYTES IN BLOOD BY AUTOMATED COUNT 17.9 14.0 - 42.3 08/09 Specimen Type: BLOOD No comment entered. Ordering Provider: SKYLAR ARRIOLA Report Released Date/Time: Aug 09, 2022 09:43 AM Reporting Lab: [facility] [address] [facility] [address] Performing Lab: [facility] [address] [facility] [address] [facility] [place] [facility] CBC AND DIFF (AUTO) MONOCYTES/1 00 LEUKOCYTES IN BLOOD BY AUTOMATED COUNT 6.1 5.1 - 13.7 08/09 Specimen Type: BLOOD No comment entered. Ordering Provider: SKYLAR ARRIOLA Report Released Date/Time: Aug 09, 2022 09:43 AM Reporting Lab: [facility] [address] [facility] [address] Performing Lab: [facility] [address] [facility] [address] [facility] CBC AND DIFF (AUTO) EOSINOPHILS /100 LEUKOCYTES IN BLOOD BY AUTOMATED COUNT 2.0 0.4 - 6.8 08/09 Specimen Type: BLOOD No comment entered. Ordering Provider: SKYLAR ARRIOLA Report Released Date/Time: Aug 09, 2022 09:43 AM Reporting Lab: [facility] [address] [facility] [address] Performing Lab: [facility] [address] [facility] [address] [facility] [place] [facility] CBC AND DIFF (AUTO) BASOPHILS/1 00 LEUKOCYTES IN BLOOD BY AUTOMATED COUNT 0.6 0.1 - 2.0 08/09 Specimen Type: BLOOD No comment entered. Ordering Provider: SKYLAR ARRIOLA Report Released Date/Time: Aug 09, 2022 09:43 AM Reporting Lab: [facility] [place] [address] [address] Performing Lab: [facility] [place] [address] [address] [place] [facility] [place] [facility] CBC AND DIFF (AUTO) NEUTROPHILS [#/VOLUME] IN BLOOD BY AUTOMATED COUNT 6.60 10*3/u L 2.20 - 7.60 08/09 Specimen Type: BLOOD No comment entered. Ordering Provider: SKYLAR ARRIOLA Report Released Date/Time: Aug 09, 2022 09:43 AM Reporting Lab: [facility] [place] [address] [address] Performing Lab: [facility] [place] [address] [address] [facility] [place] [facility] CBC AND DIFF (AUTO) LYMPHOCYTES [#/VOLUME] IN BLOOD BY AUTOMATED COUNT 1.61 10*3/u L 1.00 - 3.20 08/09 Specimen Type: BLOOD No comment entered. Ordering Provider: SKYLAR ARRIOLA Report Released Date/Time: Aug 09, 2022 09:43 AM Reporting Lab: [facility] [place] [facility] [address] [facility] [address] Performing Lab: [facility] [place] [address] [address] [facility] [place] [facility] CBC AND DIFF (AUTO) EOSINOPHILS [#/VOLUME] IN BLOOD BY AUTOMATED COUNT 0.18 10*3/u L 0.03 - 0.44 08/09 Specimen Type: BLOOD No comment entered. Ordering Provider: SKYLAR ARRIOLA Report Released Date/Time: Aug 09, 2022 09:43 AM Reporting Lab: [facility] [place] [facility] [address] [facility] [address] Performing Lab: [facility] [place] [facility] [address] [facility] [address] [facility] [place] [facility] CBC AND DIFF (AUTO) BASOPHILS [#/VOLUME] IN BLOOD BY AUTOMATED COUNT 0.05 10*3/u L 0.01 - 0.13 08/09 Specimen Type: BLOOD No comment entered. Ordering Provider: SKYLAR ARRIOLA Report Released Date/Time: Aug 09, 2022 09:43 AM Reporting Lab: [facility] [place] [facility] [address] [facility] [address] Performing Lab: [facility] [place] [facility] [address] [facility] [address] [place] [facility] [place] [facility] CBC AND DIFF (AUTO) IMMATURE GRANULOCYTE S/100 LEUKOCYTES IN BLOOD BY AUTOMATED COUNT 0.2 0.0 - 0.7 08/09 Specimen Type: BLOOD No comment entered. Ordering Provider: SKYLAR ARRIOLA Report Released Date/Time: Aug 09, 2022 09:43 AM Reporting Lab: [facility] [place] [facility] [address] [facility] [address] Performing Lab: [facility] [place] [facility] [address] [facility] [address] [place] [facility] [place] [facility] CBC AND DIFF (AUTO) IMMATURE GRANULOCYTE S [#/VOLUME] IN BLOOD 0.02 10*3/u L 0.00 - 0.06 08/09 Specimen Type: BLOOD No comment entered. Ordering Provider: SKYLAR ARRIOLA Report Released Date/Time: Aug 09, 2022 09:43 AM Reporting Lab: [facility] [place] [facility] [address] [facility] [address] Performing Lab: [facility] [place] [address] [address] [place] [facility] [place] [facility] Vital Signs Combined list of inpatient and outpatient Vital Signs from Department of Defense and Veterans Affairs, ranging from 12 months to all on record, depending upon the facility. Vital Sign Value Date Comments Source SYSTOLIC BLOOD PRESSURE 131 04/17/20 24 10:06:11 [facility] DIASTOLIC BLOOD PRESSURE 70 024 10:06:11 [facility] PULSE OXIMETRY 97 04/17/2024 10:06:11 [facility] WEIGHT 176 04/17/2024 10:06:11 [facility] BMI 28kg/m2 04/17/2024 10:06:11 [facility] PAIN 0 04/17/2024 10:06:11 [facility] PULSE 63 04/17/2024 10:06:11 [facility] RESPIRATION 20 04/17/2024 10:06:11 [facility] SYSTOLIC BLOOD PRESSURE 125 05/03/20 23 09:44:04 [facility] DIASTOLIC BLOOD PRESSURE 68 023 09:44:04 [facility] PULSE OXIMETRY 97% 05/03/2023 09:44:04 [facility] WEIGHT 173 05/03/2023 09:44:04 [facility] BMI 28kg/m2 05/03/2023 09:44:04 [facility] PULSE 75 05/03/2023 09:44:04 [facility] RESPIRATION 20 05/03/2023 09:44:04 [facility] Encounters Combined list of: 1) Encounters from Department of Veterans Affairs facilities going back up to thelast 18 months. 2) Encounters from the Department of Defense facilities going back up to 280 months. 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, left eye<br/ > SOSACHEStanford Júnior Bailey 12/18 [facility] Outpatient Encounter [id number] 12/21 [facility] FIT SPECTACLES MONOFOCAL [id number] Diagnos is: ICD-10- CM Z46.0 Encount er for fit/adj st of spectac les and contact lenses< br/> MARIANNA GIBSON 12/21 [facility] OFFICE O/P EST SF 10-19 MIN [id number] Diagnos is: ICD-10- CM E11.9 Type 2 diabete s mellitu s without complic ations< br/> Juan A MACHUCA 01/09 [facility] Outpatient Encounter [id number] 01/10 [facility] HEARING AID REPAIR/MOD IFYING [id number] Diagnos is: ICD-10- CM Z46.1 Encount er for fitting and adjustm ent of hearing aid<br/ > Huey PEREZ 01/16 [facility] REPAIR & ADJUST SPECTACLES [id number] Diagnos is: ICD-10- CM Z46.0 Encount er for fit/adj st of spectac les and contact lenses< br/> MARYLOU URIAS 01/19 [facility] Outpatient Encounter [id number] 02/20 [facility] Outpatient Encounter [id number] 04/23 [facility] OFFICE O/P EST LOW 20-29 MIN [id number] Diagnos is: ICD-10- CM E11.22 Type 2 diabete s mellitu s w diabeti c chronic kidney disease
SKYLAR LEMUS 05/03 [facility] HEARING AID REPAIR/MOD IFYING [id number] Diagnos is: ICD-10- CM H90.3 Sensori neural hearing loss, bilater al
SENIOR,JOHNSON OLE L 05/24 [facility] Outpatient Encounter [id number] 06/01 [facility] OFFICE O/P EST SF 10 MIN [id number] Diagnos is: ICD-10- CM E11.9 Type 2 diabete s mellitu s without complic ations< br/> Juan A MACHUCA 06/06 [facility] Outpatient Encounter [id number] 09/24 [facility] Outpatient Encounter [id number] 09/24 [facility] Outpatient Encounter [id number] 10/22 [facility] Outpatient Encounter [id number] Diagnos is: ICD-10- CM S46.911 A Strain unsp musc/fa sc/tend at shldr/u p arm, right arm, init
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
PICH,TOOTIE H 01/21 [facility] UNLISTED SPEC DERM SVC/PX [id number] 1. Diagnos is: ICD-10- CM Z13.89 Encount er for screeni ng for other disorde r
DARCIE HAIR ICA A 02/06 [facility] TRIM NAIL(S) [id number] 1. Diagnos is: ICD-10- CM E11.9 Type 2 diabete s mellitu s without complic ations< br/> VICENTE MANZANO GAMALIEL 02/06 [facility] Outpatient Encounter [id number] Diagnos is: ICD-10- CM L57.0 Actinic keratos is
MARY ARIAS PH J 02/07 [facility] Outpatient Encounter [id number] 02/07 [facility] Outpatient Encounter [id number] 02/10 [place] [facility] OFFICE O/P EST MOD 30 MIN [id number] Diagnos is: ICD-10- CM E11.9 Type 2 diabete s mellitu s without complic ations< br/> SKYLAR LEMUS 04/17 [place] [facility] Social History Combined list of available smoking, tobacco, and other social history from Department of Defense and Veterans Affairs facilities. Social History Type Response Date Comment Source Tobacco smoking status [facility] VA-TOBACCO USE FORMER CIGARETTES 04/17/2024 [facility] History of tobacco use VA-TOBACCO NEVER USED OTHER TYPE 04/17/2024 [facility] History of tobacco use VA-TOBACCO FORMER USER 05/03/2023 [facility] History of tobacco use VA-TOBACCO FORMER USER 10/26/2021 [facility] History of tobacco use VA-TOBACCO FORMER USER 08/19/2020 [facility] History of tobacco use VA-TOBACCO QUIT 15 YRS OR MORE 05/21/2018 [facility] History of tobacco use VA-TOBACCO NEVER USED 05/21/2018 [facility] History of tobacco use QUIT TOBACCO USE > 7 YEARS AGO 05/09/2017 quit 35 yrs ago [facility] History of tobacco use LIFETIME NON-TOBACCO USER 05/09/2016 [facility] History of tobacco use QUIT TOBACCO USE > 7 YEARS AGO 05/06/2015 pt states he stopped smoking 20 yrs ago [facility] History of tobacco use QUIT TOBACCO USE > 7 YEARS AGO 04/05/2009 QUIT 15 YEARS AGO [facility] Plan of Care List of future care activities from Department of [facility] Affairs facilities. Additional future care activities may be listed in the Assessment and Plan section. Date/Time Care Activity Care Activity Detail Facili ty 06/09/2024 AMBULATORY - MEDICINE AMBULATORY - MEDICI NE [facility] 09/23/2024 AMBULATORY - MEDICINE AMBULATORY - MEDICI [facility]
--- OUTSIDE RECORDS SUMMARY | 2024-04-21 08:04 | XMS_ITS ---
Author Name [facility] [place] [facility] [place] [facility] [place] Address [address] [place] [address] Care Team Providers Care Six Sigma Black Trainer Name Role Phone SKYLAR GREGORY Primary Care [...] Name Patient's Relationship to Policy Witt [facility] (WNR) MEDICARE ADVANTAGE MCR (WNR) May 07, 2017 [id number] MILLIE AG SR PATIENT Selected Encounter This [...] PRIMARY Sensorineural hearing loss, bilateral DIONNE BRYANT [place] [facility] [place] [facility] Plan of Treatment: Future Appointments (+ 6 months) and Future Tests (+/- 45 days) The Plan of Treatment section includes future care activities for the patient from all [place] treatmentfaacmc healthcare system. This section includes future appointments and future [...] 01, 2023 09:30 AM AMBULATORY - MEDICINE [place] [facility] [place] [facility] Jun 06, 2023 08:00 AM AMBULATORY - MEDICINE [place] [facility] [place] [facility] Oct 25, 2023 08:30 AM AMBULATORY - MEDICINE [facility] [place] [facility] Social History: Smoking Status (Most [...] 03, 2023 09:30 AM VA-TOBACCO FORMER USER [place] [facility] [place] [facility] Tobacco Use History This section includes a history of the smoking, or tobacco-related health factors, that were collected on or before the date of the Encounter. The data comes from the [place] facility where the Encounter took place. Date/Time Smoking Status/Tobac co Use Comment Facility May 03, 2023 09:30 AM VA-TOBACCO QUIT 15 YRS OR MORE [place] [facility] [place] [facility] Oct 26, 2021 10:00 AM VA-TOBACCO FORMER USER [place] [facility] [place] [facility] Oct 26, 2021 10:00 AM VA-TOBACCO QUIT 15 YRS OR MORE [facility] [place] [facility] Aug 19, 2020 08:30 AM VA-TOBACCO FORMER USER [facility] [place] [facility] Aug 19, 2020 08:30 AM VA-TOBACCO QUIT 15 YRS OR MORE [facility] [place] [facility] May 21, 2018 09:36 AM VA-TOBACCO FORMER USER [place] [facility] [place] [facility] May 21, 2018 09:36 AM [facility]BACCO QUIT [facility] YRS OR [facility] May 21, 2018 08:51 AM VA-TOBACCO NEVER USED [facility] May 09, 2017 09:38 AM QUIT TOBACCO USE > 7 YEARS AGO quit 35 yrs ago [facility] May 09, 2016 09:45 AM LIFETIME NON-TOBACCO USER [facility] May 06, 2015 08:02 AM QUIT TOBACCO USE > 7 YEARS AGO pt states he stopped smoking 20 yrs ago [facility] Apr 05, 2009 02:04 PM QUIT TOBACCO USE > 7 YEARS AGO QUIT 15 YEARS AGO [facility] Encounter Notes: All associated encounter [...] Hearing Re-Evaluation and Hearing Aid Selection BACKGROUND/HISTORY: [place] was seen today for a hearing re-evaluation [...] his hearing has declined somewhat since then. [place] denies tinnitus. He notes that 3-4 months [...] Numbness of hand 2. Low Back Pain ([facility] [id number]) 3. Diabetes Mellitus Type 2 ([facility] [id number]) 4. Microalbuminuria due to type 2 diabetes mellitus 5. Chronic kidney disease due to type 2 diabetes mellitus 6. Abnormal vision 7. Benign Prostatic Hypertrophy Without Outflow Obstruction ([facility] 177639691) 8. Essential hypertension 9. Hypothyroidism ([facility] 87546167) 10. Transient Ischemic Attack 11. HLD - Hyperlipidemia 12. [facility] 4[facility] ASSESSMENT: Results of today's testing are as [...] from NAL-NL2 to e-Stat. Increased all sound regional transportation manager settings to level 4. Decreased low frequency gain. [place] was counseled on the importance of consistent [...] Applicable NA /kaylynn/ CYRUS JUDD, CCC-A STAFF CREDIT CARD CLERK Signed: 05/24/2023 16:35 DIONNE BRYANT [facility]
--- OUTSIDE RECORDS SUMMARY | 2024-04-21 08:04 | XMS_ITS | Encounter Summary ---
Author Name [facility] [place] [facility] [place] Address [address] [place] [id number] Care Team Providers Care Capability Lead Name Role Phone SKYLAR GREGORY Primary Care [...] [facility] (WNR) MEDICARE ADVANTAGE MCR (WNR) May 07, 2017 [id number] [phone] MILLIE AG SR PATIENT Selected Encounter This section includes the information on record at [place] for the Encounter. Date/Time Encounter Type Encounter Description Reason Provider Source Jun 06, 2023 08:00 AM OFFICE O/P EST SF 10 MIN PODIATRY ICD-10-CM E11.9 Type 2 diabetes mellitus without complications JEFERSON MACHUCA E Encounter Template Text not used by [place] Assessments - Encounter Diagnoses This section includes the primary and secondary diagnoses documented for the Encounter. Date/Time Primary/Secondary Diagnosis Diagnosis Name Provider Source Jun 06, 2023 08:19 AM PRIMARY Type 2 diabetes mellitus without complications JEFERSON MACHUCA [place] [facility] Jun 06, 2023 08:19 AM SECONDARY Tinea unguium JEFERSON MACHUCA D [place] [facility] [place] [facility] Plan of Treatment: Future Appointments (+ 6 months) and Future Tests (+/- 45 days) The Plan of Treatment section includes future care activities for the patient from all [place] [facility]. This section includes future appointments and future orders which are active, pending or scheduled. Future Appointments This section includes appointments that were scheduled to occur 6 months from the date of the Encounter, up to a maximum of 20 appointments. The data comes from all [place] treatment facilities. Appointment Date/Time Appointment Type Appointme nt Facility Name Oct 25, 2023 08:30 AM AMBULATORY - [place]ICINE [place] [facility] [place] [facility] Social History: Smoking Status (Most current) and Tobacco Use (All prior to encounter date) This section includes the most current, and the historical, smoking and tobacco- related health factors from the [place] facility where the Encounter took place. Current Smoking Status This section includes the most current smoking, or tobacco-related health factor, from the [place] facility where the Encounter took place. Date/Time Current Smoking Status Comment [facility] it May 03, 2023 09:30 AM VA-TOBACCO QUIT 15 YRS OR MORE [place] [facility] [place] [facility] Tobacco Use History This section includes a history of the smoking, or tobacco-related health factors, that were collected on or before the date of the Encounter. The data comes from the [place] facility where the Encounter took place. Date/Time Smoking Status/Tobac co Use Comment Facility May 03, 2023 09:30 AM VA-TOBACCO QUIT 15 YRS OR MORE [place] [facility] [place] [facility] Oct 26, 2021 10:00 AM VA-TOBACCO FORMER USER [place] [facility] [place] [facility] Oct 26, 2021 10:00 AM VA-TOBACCO QUIT 15 YRS OR MORE [place] [facility] [place] [facility] Aug 19, 2020 08:30 AM VA-TOBACCO FORMER USER [place] [facility] [place] [facility] Aug 19, 2020 08:30 AM VA-TOBACCO QUIT 15 YRS OR MORE [place] [facility] [place] [facility] May 21, 2018 09:36 AM VA-TOBACCO FORMER USER [place] [facility] [place] [facility] May 21, 2018 09:36 AM VA-TOBACCO QUIT [facility] YRS OR [facility] May 21, 2018 08:51 AM VA-TOBACCO NEVER USED [facility] May 09, 2017 09:38 AM QUIT TOBACCO USE > 7 YEARS AGO quit 35 yrs ago [facility] May 09, 2016 09:45 AM LIFETIME NON-TOBACCO USER [facility] May 06, 2015 08:02 AM QUIT TOBACCO USE > 7 YEARS AGO pt states he stopped smoking 20 yrs ago [facility] Apr 05, 2009 02:04 PM QUIT TOBACCO USE > 7 YEARS AGO QUIT 15 YEARS AGO [facility] Encounter Notes: All associated encounter [...] 2. Benign Prostatic Hypertrophy Without Outflow Obstruction [id number] treated with finasteride 3. Hypertension * 4. [...] related medications reviewed /es/ CHANG MACHUCA DPM VALUATION MANAGER Signed: 06/06/2023 08:19 CHANG MACHUCA [facility]
--- OUTSIDE RECORDS SUMMARY | 2024-04-21 08:05 | XMS_ITS | Encounter Summary ---
Author Name [facility] [place] Organization [place] Address [address] [place] [id number] Care Team Providers Care Airplane Pilot Commercial Name Role Phone SKYLAR GREGORY Primary Care [...] Witt's Name Patient's Relationship to Policy Witt [facility] (WNR) MEDICARE ADVANTAGE [facility] (WNR) May 07, 2017 [id number] MILLIE AG SR PATIENT Selected Encounter This section includes the information on record at CT for the Encounter. Date/Time Encounter Type Encounter Description Reason Provider Source Apr 17, 2024 10:00 AM OFFICE O/P EST MOD 30 MIN PRIMARY CARE/MEDICINE ICD-10-CM E11.9 Type 2 diabetes mellitus without complications SKYLAR GREGORY [facility] Encounter Template Text not used by CT Assessments - Encounter Diagnoses This section includes the primary and secondary diagnoses documented for the Encounter. Date/Time Primary/Secondary Diagnosis Diagnosis Name Provider Source Apr 17, 2024 12:34 PM PRIMARY Type 2 diabetes mellitus without complications SKYLAR GREGORY [facility] [place] [facility] Apr 17, 2024 12:34 PM SECONDARY Chronic kidney disease, stage 3a [facility] Apr 17, 2024 12:34 PM SECONDARY Essential (primary) hypertension [facility] Apr 17, 2024 12:34 PM SECONDARY Hypothyroidism, unspecified [facility]YLAR GREGORY [facility] Apr 17, 2024 12:34 PM SECONDARY Type 2 diabetes mellitus w diabetic chronic kidney disease SKYLAR GREGORY [facility] Plan of Treatment: Future Appointments (+ 6 months) and Future Tests (+/- 45 days) The Plan of Treatment section includes future care activities for the patient [facility] This section includes future appointments and future orders which are active, pending or scheduled. Future Appointments This section includes appointments that were scheduled to occur 6 months from the date of the Encounter, up to a maximum of 20 appointments. The data comes from all CT treatment facilities. Appointment Date/Time Appointment Type Appointme nt Facility Name Jun 09, 2024 10:00 AM AMBULATORY - MEDICINE [facility] September 23, 2024 01:00 PM AMBULATORY - MEDICINE [facility] Vital Signs: All taken on the encounter date This section contains inpatient and outpatient Vital Signs collected on the date of the Encounter. Date/Time Temperature Pulse Blood Pressure Respiratory Rate SP02 Pain Height Weight Body Mass Index Source Apr 17, 2024 10:06 AM 63 131/70 20 97 0 176 28 [facility] Social History: Smoking Status (Most current) and Tobacco Use (All prior to encounter date) This section includes the most current, and the historical, smoking and tobacco- related health factors from the CT facility where the Encounter took place. Current Smoking Status This section includes the most current smoking, or tobacco-related health factor, from the CT facility where the Encounter took place. Date/Time Current Smoking Status Comment Luís singh Apr 17, 2024 10:[address]-TOBACCO USE FOR JACINTO CIGARETTES [facility] Tobacco Use History This section includes a history of the smoking, or tobacco-related health factors, that were collected on or before the date of the Encounter. The data comes from the CT facility where the Encounter took place. Date/Time Smoking Status/Tobac co Use Comment Facility Apr 17, 2024 10:00 AM VA-TOBACCO USE FORMER CIGARETTES [facility] [place] [facility] May 03, 2023 09:30 AM VA-TOBACCO FORMER USER [facility] [place] [facility] May 03, 2023 09:30 AM VA-TOBACCO QUIT 15 YRS OR MORE [facility] [place] [facility] Oct 26, 2021 10:00 AM VA-TOBACCO FORMER USER [facility] [place] [facility] Oct 26, 2021 10:00 AM VA-TOBACCO QUIT 15 YRS OR MORE [facility] [place] [facility] Aug 19, 2020 08:30 AM VA-TOBACCO FORMER USER [facility] [place] [facility] Aug 19, 2020 08:30 AM VA-TOBACCO QUIT 15 YRS OR MORE [facility] [place] [facility] May 21, 2018 09:36 AM VA-TOBACCO FORMER USER [facility] [place] [facility] May 21, 2018 09:36 AM VA-TOBACCO QUIT [address] [facility] [place] [facility] May 21, 2018 08:51 AM VA-TOBACCO NEVER USED [facility] [place] [facility] May 09, 2017 09:38 AM QUIT TOBACCO USE > 7 YEARS AGO quit 35 yrs ago [facility] [place] [facility] May 09, 2016 09:45 AM LIFETIME NON-TOBACCO USER [facility] [place] [facility] May 06, 2015 08:02 AM QUIT TOBACCO USE > 7 YEARS AGO pt states he stopped smoking 20 yrs ago [facility] [place] [facility] Apr 05, 2009 02:04 PM QUIT TOBACCO USE > 7 YEARS AGO QUIT 15 YEARS AGO [facility] [place] [facility] Encounter Notes: All associated encounter notes This section contains the clinical notes associated to the Encounter. Date/Time Encounter Note(s) Provider Source Apr 17, 2024 10:13 AM PREVENTIVE MEDICINE NURSING NOTE: LOCAL TITLE: CLINICAL REMINDERS/NURSING STANDARD TITLE: PREVENTIVE MEDICINE NURSING NOTE DATE OF NOTE: APR 17, 2024@10:13 ENTRY DATE: APR 17, 2024@10:13:32 AUTHOR: TSERING REARDON COSIGNER: URGENCY: STATUS: COMPLETED Depression Screening: Perform PHQ-2 A PHQ-2 screen [...] No falls within the past year. Incontinence Screen No incontinence. PTSD Screening: PC-PTSD-5 A PTSD screening test (PC-PTSD-5) was negative (score=0). IN THE PAST MONTH, have you ever had any experience that was so frightening, horrible or traumatic. For example: A serious accident or fire a physical or sexual assault or abuse An earthquake or flood A war Seeing someone be killed or seriously injured Having a loved one through homicide or suicide 1. Have you ever experienced this kind of event? NO 2. Had nightmares about the event(s) or thought about the event(s) when you did not want to? Response not required due to responses to other questions. 3. Tried hard not to think about the event(s) or went out of your way to avoid situations that reminded you of the event(s)? Response not required due to responses to other questions. 4. Been constantly on guard, watchful, or easily startled? Response not required due to responses to other questions. 5. [place] numb or detached from people, activities, or your surroundings? Response not required due to responses to other questions. 6. [place] guilty or unable to stop blaming yourself or others for the event(s) or any problems the event(s) may have caused? Response not required due to responses to other questions. Tobacco Use Screening: The patient is a former cigarette smoker. The patient has never used other types of tobacco. Alcohol Use Screen (AUDIT-C): Alcohol Screen: SCREEN FOR ALCOHOL (AUDIT-C) An alcohol screening test (AUDIT-C) was negative (score=0). 1. How often did you have a drink containing alcohol in the past year? Consider a drink to be a 12 ounce can or bottle of regular beer, 8 ounces of malt liquor, a 5 ounce glass of table wine, or a 1.5 ounce shot of liquor (like scotch, gin, or vodka). Never 2. How many drinks containing alcohol did you have on a typical day when you were drinking in the past year? Response not required due to responses to other questions. 3. How often did you have six or more drinks on one occasion in the past year? Response not required due to responses to other questions. Herpes Zoster (Shingles) Vaccine: Prior Herpes Zoster vaccination The patient has been vaccinated in the past but written documentation of vaccination is not available today. Patient instructed to obtain a written record of the prior vaccine and bring it to the next appointment. /kaylynn/ Tsering Reardon RN Primary Care Staff Nurse Signed: 04/17/2024 10:14 TSERING REARDON [facility] [place] [facility] Apr 17, 2024 08:01 AM PHYSICIAN NOTE: LOCAL TITLE: MD NOTE STANDARD TITLE: PHYSICIAN NOTE DATE OF NOTE: APR 17, 2024@08:01 ENTRY DATE: APR 17, 2024@08:01:27 AUTHOR: JEFF GREGORY EXP COSIGNER: URGENCY: STATUS: COMPLETED HISTORY OF PRESENT ILLNESS: MILLIE AG, is a 89 yo WHITE MALE who presents at the CT at [facility] CC. multiple problems HPI. this vet presents to PCP clinic to review his medical concerns: 1. hx of diabetes/good glycemic control on low dose glipizide, vet prefers to remain under care of community PCP/Dr Sheldon Muniz in [place]/ no polyuria, no fevers. 2. CKD 3A- stable GFR in 40 range over past few years 3. HTN, no angina, well controlled on 3 meds 4. hypothyroid-vet on 125 mcg levothyroxine. no fatigue, vet exercises daily , has good energy level SH nonsmoker Active problems - Computerized Problem List is the source for the followin. History of actinic keratosis 2. Numbness of hand 3. Low Back Pain (SCT 577759148) 4. Diabetes Mellitus Type 2 (SCT 53873863) 5. Microalbuminuria due to type 2 diabetes mellitus 6. Chronic kidney disease due to type 2 diabetes mellitus 7. Abnormal vision 8. Benign Prostatic Hypertrophy Without Outflow Obstruction (SCT 295636618) 9. Essential hypertension 10. Hypothyroidism (SNOMED CT [id number]) 11. Transient Ischemic Attack 12. HLD - Hyperlipidemia 13. Hearing loss (SNOMED CT 46207523) HISTORY: PERIOD OF SERVICE - [facility] FROM Jun TO Apr COMBAT SERVICE INDICATED: No SERVICE CONNECTED % - NONE FOUND VITAL SIGNS: Temperature 98 F [36.7 C] (08/09/2022 09:28) Blood Pressure 125/68 (05/03/2023 09:44) Pulse 75 (05/03/2023 09:44) Respiration 20 (05/03/2023 09:44) Pain 1 (08/09/2022 09:28) BMI BMI: 28.0 Weight 173 lb [78.47 kg] (05/03/2023 09:44) Pulse Oximetry 97% (05/03/2023 09:44) Review of Systems: CONSTITUTIONAL: No fever, no loss of appetite ENT: No sore throat, no cough CARDIOVASCULAR: No chest pain, no palpitations RESPIRATORY: No SOB, no wheezing GASTROINTESTINAL: No abd pain, no N/V/D, no change in stool EXAMINATION General: Well-appearing 89 yo gentleman in no obvious distress. Mental Status: Alert and oriented x 3 Head: Normocephalic. Neck: Supple. no adenopathy/ no bruits Lungs: CTA. no crackles, no wheezing CV: RRR. No murmur DATA REVIEW >> MEDICATIONS Reviewed Today (VA & Non VA) ALLERGIES: Patient has answered NKA Active Outpatient Medications (including Supplies): Issue Date Status Last Fill Active Outpatient Medications Refills Expiration 1) CARBOXYMETHYLCELLULOSE NA 0.5% OPH SOLN Qty: ACTIVE Issue: 12/25/23 45 for 90 days Sig: INSTILL 1 DROP INTO EACH Refills: 3 Last : 12/25/23 EYE FOUR TIMES A DAY Expr : 12/25/24 Indication: FOR DRY EYE Start Date Active Non-VA Medications Status Stop Date 1) Non-VA AMLODIPINE BESYLATE 10MG TAB Sig: ACTIVE 10MG BY MOUTH ONCE DAILY 2) Non-VA FUROSEMIDE 20MG TAB SiMG BY ACTIVE MOUTH ONCE DAILY 3) Non-VA GLIPIZIDE 5MG TAB SiMG BY MOUTH ACTIVE 4) Non-VA LEVOTHYROXINE NA (SYNTHROID) 137MCG ACTIVE TAB SiMCG BY MOUTH EVERY DAY 5) Non-VA LISINOPRIL 20MG TAB SiMG BY ACTIVE MOUTH ONCE DAILY 6) Non-VA METOPROLOL SUCCINATE 100MG SA TAB ACTIVE SiMG BY MOUTH ONCE DAILY 7) Non-VA PRAVASTATIN NA 40MG TAB SiMG BY ACTIVE MOUTH AT BEDTIME 8) Non-VA WARFARIN (NON-VA) TAB SiMG BY ACTIVE MOUTH ONCE DAILY 9 Total Medications >> LABS REVIEWED TODAY: CHEM 7 TREND [...] 40 5.4 152 H 108 UREA NITROGEN - NONE FOUND CREATININE-EGFR - NONE FOUND LIVER PANEL TREND Collection DT Spec AST [...] MEDICINE GOALS Advance Directive Screen MH AD Nov 01 Toxic Exposure Screening DUE NOW Depression Screening May 03 Falls & Incontinence Screen May 03 Hemoglobin A1C DUE NOW Hepatitis C Testing DUE NOW High Risk for HYPOglycemia Feb 18 PTSD Screening May 20 Tobacco Use Screening May 03 Medication Reconciliation DUE NOW Td / Tdap Immunization Dec 06 Alcohol Use Screen (AUDIT-C) May 03 COVID-19 Immunization DUE NOW Herpes Zoster (Shingles) Vaccine DUE NOW Sexual Orientation DUE NOW RHS Screen DUE NOW PAVE Foot Check DUE NOW (Optional) Whole Health Documentation DUE NOW ASSESSMENT/PLAN: 1. diabetes 2. CKD 3A 3. HTN 4. hypothyroid Plan 1. continue glipizide w/ excellent glycemic control 2. vet will have nephrology f/u twice yearly/stable GFR per labs 3. continue amlodipine, ARB and diuretic 4. continue current dose of levothyroxine 5. f/u w/ [facility] PCP [facility] 6 mos and PRN LAB ORDERS FOR NEXT APPT. [...] of active outpatient prescriptions dispensed from this CT (local) and dispensed from another CT or [facility] facility (remote) as well as inpatient [...] provider. /kaylynn/ SKYLAR GREGORY MD PHYSICIAN Signed: 04/17/2024 12:[address] [facility]
--- OUTSIDE RECORDS SUMMARY | 2024-04-21 08:05 | XMS_ITS ---
Author Name [facility] [place] Address [address] [place] [address] Care Team Providers Care Barber Shop Operator Name Role Phone SKYLAR GREGORY Primary [...] Witt's Name Patient's Relationship to Policy Witt [facility] (WNR) MEDICARE ADVANTAGE [facility] (WNR) May 07, 2017 [id number] MILLIE AG SR PATIENT Selected Encounter This section includes the information on record at [place] for the Encounter. Date/Time Encounter Type Encounter Description Reason Pro vider Source Feb 08, 2024 07:43 AM Outpatient Encounter EVENT (HISTORICAL) IHE Encounter Template Text not used by [place] Plan of Treatment: Future Appointments (+ 6 [...] 17, 2024 10:00 AM AMBULATORY - MEDICINE [place] [facility] [place] [facility] Jun 09, 2024 10:00 AM AMBULATORY - MEDICINE [place] [facility] [place] [facility] Active, Pending, and Scheduled Orders This section [...] AM Consult Order DERMATOLOG Y/NHM (OUTPT) Cons Missing Persons Investigator's Choice [place] [facility] [place] [facility] Social History: Smoking Status (Most current) and [...] took place. Date/Time Current Smoking Status Comment [facility] May 03, 2023 09:30 AM VA-TOBACCO FORMER USER [place] [facility] [place] [facility] Tobacco Use History This section includes a history of the smoking, or tobacco-related health factors, that were collected on or before the date of the Encounter. The data comes from the [place] facility where the Encounter took place. Date/Time Smoking Status/Tobac co Use Comment Facility May 03, 2023 09:30 AM VA-TOBACCO QUIT 15 YRS OR MORE [place] [facility] [place] [facility] Oct 26, 2021 10:00 AM VA-TOBACCO FORMER USER [place] [facility] [place] [facility] Oct 26, 2021 10:00 AM VA-TOBACCO QUIT 15 YRS OR MORE [facility] [place] [facility] Aug 19, 2020 08:30 AM VA-TOBACCO FORMER USER [facility] [place] [facility] Aug 19, 2020 08:30 AM VA-TOBACCO QUIT 15 YRS OR MORE [place] [facility] [place] [facility] May 21, 2018 09:36 AM VA-TOBACCO FORMER USER [facility] [place] [facility] May 21, 2018 09:36 AM VA-TOBACCO QUIT 15 YRS OR MORE [place] [facility] [place] [facility] May 21, 2018 08:51 AM VA-TOBACCO NEVER USED [facility] [place] [facility] May 09, 2017 09:38 AM QUIT TOBACCO USE > 7 YEARS AGO quit 35 yrs ago [place] [facility] [place] [facility] May 09, 2016 09:45 AM LIFETIME NON-TOBACCO USER [place] [facility] [place] [facility] May 06, 2015 08:02 AM QUIT TOBACCO USE > 7 YEARS AGO pt states he stopped smoking 20 yrs ago [place] [facility] [place] [facility] Apr 05, 2009 02:04 PM QUIT TOBACCO USE > 7 YEARS AGO QUIT 15 YEARS AGO [place] [facility] [place] [facility] Encounter Notes: All associated encounter notes This [...] required. Electronically Filed: 02/08/2024 by: DAVIE JUAREZ [facility]
--- OUTSIDE RECORDS SUMMARY | 2024-04-21 08:05 | XMS_ITS ---
Author Name [facility] [place] Organization [place] Address [address] [place] [address] Care Team Providers Care Marking Devices Assembler Name Role Phone SKYLAR GREGORY Primary Care [...] Witt's Name Patient's Relationship to Policy Witt [facility] (WNR) MEDICARE ADVANTAGE [facility] (WNR) May 07, 2017 [id number] [phone] MILLIE AG SR PATIENT Selected Encounter This section includes the information on record at [place] for the Encounter. Date/Time Encounter Type Encounter Description Reason Provider Source Feb 07, 2024 03:00 PM TRIM NAIL(S) PODIATRY ICD-10-CM E11.9 Type 2 diabetes mellitus without complications LUIS MANZANO [facility] Encounter Template Text not used by [place] Assessments - Encounter Diagnoses This section includes the primary and secondary diagnoses documented for the Encounter. Date/Time Primary/Secondary Diagnosis Diagnosis Name Provider Source Feb 07, 2024 03:23 PM PRIMARY Type 2 diabetes mellitus without complications [facility] [place] [facility] Feb 07, 2024 03:23 PM SECONDARY Nail dystrophy [facility] Plan of Treatment: Future Appointments (+ 6 months) and Future Tests (+/- 45 days) The Plan of Treatment section includes future care activities for the patient from all [place] [facility] This section includes future appointments and future orders which are active, pending or scheduled. Future Appointments This section includes appointments that were scheduled to occur 6 months from the date of the Encounter, up to a maximum of 20 appointments. The data comes from all [facility]. Appointment Date/Time Appointment Type Appointme nt Facility Name Apr 17, 2024 10:00 AM AMBULATORY - MEDICINE [facility] Jun 09, 2024 10:00 AM AMBULATORY MEDICINE [facility] Active, Pending, and Scheduled Orders This section includes a listing of several types of active, pending, and scheduled orders, including clinic medications orders, diagnostic test orders, procedure orders and consult orders; where the start date of the order is 45 days before the date of the Encounter or 45 days after the date of theEncounter. The data comes from all [facility]. Test Date/Time Test Type Test Details Facility Name Feb 08, 2024 08:25 AM Consult Order DERMATOLOG Y/NHM (OUTPT) Cons Electrician Supervisor Airplane's Choice [facility] Social History: Smoking Status (Most current) [...] it May 03, 2023 09:30 AM PA-TOBACCO QUIT 15 YRS OR MORE [facility] Tobacco Use History This section includes a history of the smoking, or tobacco-related health factors, that were collected on or before the date of the Encounter. The data comes from the [place] facility where the Encounter took place. Date/Time Smoking Status/Tobac co Use Comment Facility May 03, 2023 09:30 AM PA-TOBACCO QUIT 15 YRS OR MORE [facility] Oct 26, 2021 10:00 AM VA-TOBACCO FORMER USER [facility] [place] [facility] Oct 26, 2021 10:00 AM VA-TOBACCO QUIT 15 YRS OR MORE [facility] [place] [facility] Aug 19, 2020 08:30 AM VA-TOBACCO FORMER USER [facility] [place] [facility] Aug 19, 2020 08:30 AM VA-TOBACCO QUIT 15 YRS OR MORE [place] [facility] [place] [facility] May 21, 2018 09:36 AM VA-TOBACCO FORMER USER [facility] [place] [facility] May 21, 2018 09:36 AM VA-TOBACCO QUIT 15 YRS OR MORE [place] [facility] [place] [facility] May 21, 2018 08:51 AM VA-TOBACCO NEVER USED [place] [facility] [place] [facility] May 09, 2017 09:38 AM QUIT TOBACCO USE > 7 YEARS AGO quit 35 yrs ago [place] [facility] [place] [facility] May 09, 2016 09:45 AM LIFETIME NON-TOBACCO USER [facility] [place] [facility] May 06, 2015 08:02 AM QUIT TOBACCO USE > 7 YEARS AGO pt states he stopped smoking 20 yrs ago [facility] [place] [facility] Apr 05, 2009 02:04 PM QUIT TOBACCO USE > 7 YEARS AGO QUIT 15 YEARS AGO [place] [facility] [place] [facility] Encounter Notes: All associated encounter notes This section contains the clinical notes associated to the Encounter. Date/Time Encounter Note(s) Provider Source Feb 07, 2024 03:20 PM NURSING OUTPATIENT NOTE: LOCAL TITLE: NURSING/SPECIALTY CLINIC NOTE STANDARD TITLE: NURSING OUTPATIENT NOTE DATE OF NOTE: FEB 07, 2024@15:20 ENTRY DATE: FEB 07, 2024@15:21:03 AUTHOR: LUIS MANZANO EXP COSIGNER: URGENCY: STATUS: COMPLETED [place] [facility] for continued [...] Hyperkeratotic lesions were grinded down with eletric pulp grinder and debrided without incidence. [x ]Patient education educated about proper foot care and encouraged to check feet daily for injuries and wounds [ x] Instructed to moisturize feet daily but not in-between toes Patient is to RTC in 4 months. /kaylynn/ LUIS MANZANO LPN LICENSED PRACTICAL NURSE Signed: 02/07/2024 15:23 Receipt Acknowledged By: 02/07/2024 17:47 /es/ DIEGO LEAHY DPM PODIATRY ATTENDING LUIS MANZANO [facility]
--- OUTSIDE RECORDS SUMMARY | 2024-04-21 08:05 | XMS_ITS ---
Author Name Department of [facility] Organization [place] Address [address] [place] [address] Care Team Providers Care Adjunct Lecturer Name Role Phone SKYLAR GREGORY Primary Care [...] Witt's Name Patient's Relationship to Policy Witt [facility] (WNR) MEDICARE ADVANTAGE MCR (WNR) May 07, 2017 [id number] MILLIE AG SR PATIENT Selected Encounter This section includes the information on record at [place] for the Encounter. Date/Time Encounter Type Encounter Description Reason Provider Source Dec 25, 2023 08:30 AM DETERMINE REFRACTIVE STATE OPTOMETRY ICD-10-CM E11.9 Type 2 diabetes mellitus without complications YOLI SOSA [facility] Encounter Template Text not used by [place] Assessments - Encounter Diagnoses This section includes the primary and secondary diagnoses documented for the Encounter. Date/Time Primary/Secondary Diagnosis Diagnosis Name Provider Source Dec 25, 2023 09:34 AM PRIMARY Type 2 diabetes mellitus without complications [facility] [place] [facility] Dec 25, 2023 09:34 AM SECONDARY Dry eye syndrome of bilateral lacrimal glands YOLI SOSA [facility] [place] [facility] Dec 25, 2023 09:34 AM SECONDARY Presbyopia SOSA,YOLI Bailey [facility] [place] [facility] Dec 25, 2023 09:34 AM SECONDARY Presence of intraocular lens SOSA,[facility]OLI Bailey [facility] [place] [facility] Dec 25, 2023 09:34 AM SECONDARY Puckering of macula, left eye SOSA,YOLI Bailey [facility] Dec 25, 2023 09:34 AM SECONDARY Unspecified retinal break, left eye SOSA,YOLI Bailey [facility] Plan of Treatment: Future Appointments (+ 6 months) and Future Tests (+/- 45 days) The Plan of Treatment section includes future care activities for the patient from all [place] [facility]. This section includes future appointments and future orders which are active, pending or scheduled. Future Appointments This section includes appointments that were scheduled to occur 6 months from the date of the Encounter, up to a maximum of 20 appointments. The data comes from all [place] treatment facilities. Appointment Date/Time Appointment Type Appointme nt Facility Name Jan 22, 2024 09:30 AM AMBULATORY - MEDICINE [facility] [place] [facility] Feb 07, 2024 02:00 PM AMBUL[facility]ORY - NONE [facility] Feb 07, 2024 03:00 PM AMBULATORY - MEDICINE [facility] Apr 17, 2024 10:00 AM AMBULATORY - MEDICINE [facility] Jun 09, 2024 10:00 AM AMBULATORY - [facility] Active, Pending, and Scheduled Orders This section includes a listing of several types of active, pending, and scheduled orders, including clinic medications orders, diagnostic test orders, procedure orders and consult orders; where the start date of the order is 45 days before the date of the Encounter or 45 days after the date of theEncounter. The data comes from all [place] treatment facilities. Test Date/Time Test Type Test Details Facility Name Feb 08, 2024 08:25 AM Consult Order DERMATOLOG Y/NHM (OUTPT) Cons Trade Union Official's Choice [facility] Social History: Smoking Status (Most current) and Tobacco Use (All prior to encounter date) This section includes the most current, and the historical, smoking and tobacco- related health factors from the [place] facility where the Encounter took place. Current Smoking Status This section includes the most current smoking, or tobacco-related health factor, from the [place] facility where the Encounter took place. Date/Time Current Smoking Status Comment Facil it May 03, 2023 09:30 AM VA-TOBACCO FORMER USER [place] [facility] [facility] Tobacco Use History This section includes a history of the smoking, or tobacco-related health factors, that were collected on or before the date of the Encounter. The data comes from the [place] facility where the Encounter took place. Date/Time Smoking Status/Tobac co Use Comment Facility May 03, 2023 09:30 AM VA-TOBACCO QUIT 15 YRS OR MORE [facility] [place] [facility] Oct 26, 2021 10:00 AM VA-TOBACCO FORMER USER [facility] [facility] Oct 26, 2021 10:00 AM VA-TOBACCO QUIT 15 YRS OR MORE [facility] [place] [facility] Aug 19, 2020 08:30 AM VA-TOBACCO FORMER USER [facility] [place] [facility] Aug 19, 2020 08:30 AM VA-TOBACCO QUIT 15 YRS OR MORE [facility] [place] [facility] May 21, 2018 09:36 AM VA-TOBACCO FORMER USER [facility] [place] [facility] May 21, 2018 09:36 AM VA-TOBACCO QUIT 15 YRS OR MORE [place] [facility] [place] [facility] May 21, 2018 08:51 AM VA-TOBACCO NEVER USED [facility] [place] [facility] May 09, 2017 09:38 AM QUIT TOBACCO USE > 7 YEARS AGO quit 35 yrs ago [facility] [place] [facility] May 09, 2016 09:45 AM LIFETIME NON-TOBACCO USER [facility] [place] [facility] May 06, 2015 08:02 AM QUIT TOBACCO USE > 7 YEARS AGO pt states he stopped smoking 20 yrs ago [facility] [place] [facility] Apr 05, 2009 02:04 PM QUIT TOBACCO USE > 7 YEARS AGO QUIT 15 YEARS AGO [facility] [place] [facility] Encounter Notes: All associated encounter notes [...] of hand 2. Low Back Pain (SCT 636986501) 3. Diabetes Mellitus Type 2 (SCT 22088829) 4. Microalbuminuria due to type 2 diabetes mellitus 5. Chronic kidney disease due to type 2 diabetes mellitus 6. Abnormal vision 7. Benign Prostatic Hypertrophy Without Outflow Obstruction (SCT 300651483) 8. Essential hypertension 9. Hypothyroidism (SNOMED CT 08598624) 10. Transient Ischemic Attack 11. HLD - Hyperlipidemia 12. Hearing loss (SNOMED CT 33171330) Active Outpatient Medications (including Supplies): Active Non-VA [...] denies flashes but notes a little blue navajo in center of vision that is very [...] ago Current Rx with last BCVA: OD: +2.25-2.15v590 2020+2 OS: +3.00-1.38j090 -2 Add: +2.75 DVA ( )sc ( x )cc phoropter OD: 2020 OS: 2050+1 PH: 2050+2 Pupils: PERRL (-)APD EOMs: SAFE OU, (-)Pain/Diplopia CVF (facial, peripheral): FTFC OU Subjective Refraction: OD: +2.25-2.65a873` 20 OS: +3.00-1.68m707 50+1 Add: +2.75 All the above performed by [...] this VA (local) and dispensed from another [place] or [facility] facility (remote) as [...] Remote Allergy/ADR Data available for this patient [place] [facility] [place] [facility] No Known Allergies Med. Reconciliation (Tool #1) INCLUDED IN THIS LIST: Alphabetical list of active outpatient prescriptions dispensed from this VA (local) and dispensed from another [place] or DoD facility (remote) as well as inpatient orders (local pending and active), local clinic medications, locally documented non-VA medications, and local prescriptions that have or been discontinued in the past 90 days. Non-VA Meds Last Documented On: Aug 19, 2020 NOTE The display of VA prescriptions dispensed from another [place] or [facility] facility (remote) is limited to active outpatient prescription entries matched to National Drug File at the originating site and may not include some items such as investigational drugs, compounds, etc. NOT INCLUDED IN THIS LIST: Medications self-entered by the patient into personal health records (i.e. [employer]) are NOT included in this list. Non-VA medications documented outside this OR, remote inpatient orders (regardless of status) and [...] TERMS AND POSSIBLE PATIENT ACTIONS INPT = OR inpatient order IV = OR intravenous medication OUTPT = OR outpatient prescription PHARMACY POSSIBLE PATIENT TERMS EXPLANATION ACTIONS -------- - ACTIVE A prescription that can be If you have refills, filled at the local [place] pharmacy. you may request a refill of this prescription from your [place] pharmacy. CLINIC A medication you received during If you have questions a visit to a OR clinic or about this medication emergency department. contact your [place] healthcare team. DISCONTINUED A prescription your provider has Contact your OR stopped. It is no longer healthcare team if you available to be sent to you or need more of this picked up at the OR pharmacy medication. window. A prescription which is [...] the VA. Or, it may be an tpne-ncs-leapqly (OTC), herbal, dietary supplements or sample medication. [...] Signed: 12/25/2023 11:09 /kaylynn/ YOLI SOSA OD BORING MACHINE OPERATOR Cosigned: 12/25/2023 11:15 12/25/2023 ADDENDUM STATUS: COMPLETED The optometry internet network specialist participated in this exam, I saw this [...] assessment and plan. Ed re today's findings. [place] repeated back the plan and education. All reminders completed by attending and documented in student note. /kaylynn/ YOLI SOSA OD BORING MACHINE OPERATOR Signed: 12/25/2023 11:15 DARCY [facility]
--- OUTSIDE RECORDS SUMMARY | 2024-04-21 08:05 | XMS_ITS ---
Author Name Department of [place] Organization [place] Address [address] [place] [address] Care Team Providers Care Meteorological Engineer Name Role Phone SKYLAR GREGORY Primary Care [...] Witt's Name Patient's Relationship to Policy Witt [facility] (WNR) MEDICARE ADVANTAGE [facility] (WNR) May 07, 2017 [id number] [phone] MILLIE AG SR PATIENT Selected Encounter This section includes the information on record at [place] for the Encounter. Date/Time Encounter Type Encounter Description Reason Provider Source Jan 22, 2024 09:30 AM OFF/OP EST SEPTEMBER X REQ PHY/QHP PRIMARY CARE/MEDICINE ICD-10-CM R21 Rash and other nonspecific skin eruption TSERING REARDON [facility] Encounter Template Text not used by [place] Assessments - Encounter Diagnoses This section includes the primary and secondary diagnoses documented for the Encounter. Date/Time Primary/Secondary Diagnosis Diagnosis Name Provider Source Jan 22, 2024 10:05 AM PRIMARY Rash and other nonspecific skin eruption TSERING REARDON [place] [facility] [facility] Plan of Treatment: Future Appointments (+ 6 months) and Future Tests (+/- 45 days) The Plan of Treatment section includes future care activities for the patient from all [place] treatmentfacilities. This section includes future appointments and future orders which are active, pending or scheduled. Future Appointments This section includes appointments that were scheduled to occur 6 months from the date of the Encounter, up to a maximum of 20 appointments. The data comes from all [place] treatment [facility]. Appointment Date/Time Appointment Type Appointme nt Facility Name Feb 07, 2024 02:00 PM [facility] Feb 07, 2024 03:00 PM [facility] Apr 17, 2024 10:00 AM [facility] Jun 09, 2024 10:00 AM [facility] Active, Pending, and Scheduled Orders This section includes a listing of several types of active, pending, and scheduled orders, including clinic medications orders, diagnostic test orders, procedure orders and consult orders; where the start date of the order is 45 days before the date of the Encounter or 45 days after the date of theEncounter. The data comes from all [facility]. Test Date/Time Test Type Test Details Facility Name Feb 08, 2024 08:25 AM Consult Order DERMATOLOG Y/NHM (OUTPT) Cons Vector Control Assistant's Choice [facility] Social History: Smoking Status (Most current) and Tobacco Use (All prior to encounter date) This section includes the most current, and the historical, smoking and tobacco- related health factors from the [place] facility where the Encounter took place. Current Smoking Status This section includes the most current smoking, or tobacco-related health factor, from the [place] facility where the Encounter took place. Date/Time Current Smoking Status Comment Facil it May 03, 2023 09:30 AM VA-TOBACCO FORMER USER [facility] Tobacco Use History This section includes a history of the smoking, or tobacco-related health factors, that were collected on or before the date of the Encounter. The data comes from the [place] facility where the Encounter took place. Date/Time Smoking Status/Tobac co Use Comment Facility May 03, 2023 09:30 AM VA-TOBACCO QUIT 15 YRS OR MORE [facility] [place] [facility] Oct 26, 2021 10:00 AM VA-TOBACCO FORMER USER [facility] [place] [facility] Oct 26, 2021 10:00 AM VA-TOBACCO QUIT 15 YRS OR MORE [facility] [place] [facility] Aug 19, 2020 08:30 AM VA-TOBACCO FORMER USER [facility] [facility] Aug 19, 2020 08:30 AM VA-TOBACCO QUIT 15 YRS OR MORE [facility] [place] [facility] May 21, 2018 09:36 AM VA-TOBACCO FORMER USER [place] [facility] [facility] May 21, 2018 09:36 AM VA-TOBACCO QUIT 15 YRS OR MORE [place] [facility] [place] [facility] May 21, 2018 08:51 AM VA-TOBACCO NEVER USED [place] [facility] [place] [facility] May 09, 2017 09:38 AM QUIT TOBACCO USE > 7 YEARS AGO quit 35 yrs ago [facility] [facility] May 09, 2016 09:45 AM LIFETIME NON-TOBACCO USER [facility] [place] [facility] May 06, 2015 08:02 AM QUIT TOBACCO USE > 7 YEARS AGO pt states he stopped smoking 20 yrs ago [facility] [place] [facility] Apr 05, 2009 02:04 PM QUIT TOBACCO USE > 7 YEARS AGO QUIT 15 YEARS AGO [place] [facility] [place] [facility] Encounter Notes: All associated encounter notes This section contains the clinical notes associated to the Encounter. Date/Time Encounter Note(s) Provider Source Jan 22, 2024 09:59 AM [facility]: LOCAL TITLE: AMBULATORY/OUTPATIENT CARE NOTE STANDARD TITLE: PRIMARY CARE OUTPATIENT NOTE DATE OF NOTE: JAN 22, 2024@09:59 ENTRY DATE: JAN 22, 2024@09:59:33 AUTHOR: TSERING REARDON EXP COSIGNER: URGENCY: STATUS: COMPLETED AMBULATORY/OUTPATIENT CARE NOTE Has ADDENDA Rudolph presented to Primary Care with complaints of flat red circular spots on his left and right side restoration. Vet states that they have been there for months . He is requesting a dermatology consult to have areas evalauted. He is agreeable to have atelederm appointment wi PCP feels its warranted. Areas present on both left and right restoration. Present as small, flat red circular patches of skin. Denies any pain or itching. Denies there has been any drainage. No open areas noted. Rudolph has a history of skin cancer. Endorses being in the sun alVC VISION- [employer]. Has tried OTC ointment that he purchased- [...] ADDENDUM STATUS: COMPLETED Suicide Screen: C-SSRS Screening [place] Suicide Severity Rating Scale (C-SSRS) screener 1. [...] Nurse Signed: 01/22/2024 10:06 TS[facility]ING REARDON [facility]
--- OUTSIDE RECORDS SUMMARY | 2024-04-21 08:05 | XMS_ITS ---
Author Name Department [place] Organization [place] Address [address] [place] [address] Care Team Providers Care Paper And Pulp Mill Operator Name Role Phone SKYLAR GREGORY Primary [...] Witt's Name Patient's Relationship to Policy Witt [facility] (WNR) MEDICARE ADVANTAGE MCR (WNR) May 07, 2017 [id number] [phone] MILLIE AG SR PATIENT Selected Encounter This section includes the information on record at [place] for the Encounter. Date/Time Encounter Type Encounter Description Reason Provider Source Feb 07, 2024 02:00 PM UNLISTED SPEC DERM SVC/PX DERMATOLOGY ICD-10-CM Z13.89 Encounter for screening for other disorder RAISA HAIR [facility] Encounter Template Text not used by [place] Assessments - Encounter Diagnoses This section includes the primary and secondary diagnoses documented for the Encounter. Date/Time Primary/Secondary Diagnosis Diagnosis Name Provider Source Feb 07, 2024 02:32 PM PRIMARY Encounter for screening for other disorder RAISA HAIR [facility] [place] [facility] Plan of Treatment: Future Appointments (+ 6 months) and Future Tests (+/- 45 days) The Plan of Treatment section includes future care activities for the patient from all [place] [facility]. This section includes future appointments and future orders which are active, pending or scheduled. Future Appointments This section includes appointments that were scheduled to occur 6 months from the date of the Encounter, up to a maximum of 20 appointments. The data comes from all [place] treatment [facility]. Appointment Date/Time Appointment Type Appointme nt Facility Name Apr 17, 2024 10:00 AM AM[facility]UL[facility]ORY [facility] Jun 09, 2024 10:00 AM AMBULATORY - MEDICINE [facility] Active, Pending, and Scheduled Orders This section includes a listing of several types of active, pending, and scheduled orders, including clinic medications orders, diagnostic test orders, procedure orders and consult orders; where the start date of the order is 45 days before the date of the Encounter or 45 days after the date of theEncounter. The data comes from all [facility]. Test Date/Time Test Type Test Details Facility Name Feb 08, 2024 08:25 AM Consult Order DERMATOLOG Y/NHM (OUTPT) Cons Dental Equipment Repairer's Choice [facility] Social History: Smoking Status (Most current) [...] Luís mustafa May 03, 2023 09:30 AM VA-TOBACCO FORMER USER [facility] Tobacco Use History This section includes a history of the smoking, or tobacco-related health factors, that were collected on or before the date of the Encounter. The data comes from the [place] facility where the Encounter took place. Date/Time Smoking Status/Tobac co Use Comment Facility May 03, 2023 09:30 AM [place]-TOBACCO QUIT 15 YRS OR MORE [facility] Oct 26, 2021 10:00 AM [place]-TOBACCO [facility] Oct 26, 2021 10:00 AM VA-TOBACCO QUIT 15 YRS OR MORE [place] [facility] [place] [facility] Aug 19, 2020 08:30 AM VA-TOBACCO FORMER USER [place] [facility] [place] [facility] Aug 19, 2020 08:30 AM VA-TOBACCO QUIT 15 YRS OR MORE [place] [facility] [place] [facility] May 21, 2018 09:36 AM VA-TOBACCO FORMER USER [place] [facility] [place] [facility] May 21, 2018 09:36 AM VA-TOBACCO QUIT 15 YRS OR MORE [place] [facility] [place] [facility] May 21, 2018 08:51 AM VA-TOBACCO NEVER USED [place] [facility] [place] [facility] May 09, 2017 09:38 AM QUIT TOBACCO USE > 7 YEARS AGO quit 35 yrs ago [place] [facility] [place] [facility] May 09, 2016 09:45 AM LIFETIME NON-TOBACCO USER [place] [facility] [place] [facility] May 06, 2015 08:02 AM QUIT TOBACCO USE > 7 YEARS AGO pt states he stopped smoking 20 yrs ago [place] [facility] [place] [facility] Apr 05, 2009 02:04 PM QUIT TOBACCO USE > 7 YEARS AGO QUIT 15 YEARS AGO [place] [facility] Encounter Notes: All associated encounter notes This [...] on file. /es/ RAISA HAIR TELEHEALTH CLINICAL COLOR CARD MAKER Signed: 02/21/2024 14:51 Receipt Acknowledged By: 02/21/2024 16:20 /es/ SKYLAR GREGORY MD PHYSICIAN --- Original Document --- 02/08/24 PATIENT NOTIFICATION TELEHEALTH RESULTS: Provided below are the results from pts telederm imaging reading. Ordering Provider is responsible to give pt the results and prescribe any treatments, recommendations or consult to dermatology for a face to face etc. REMOTE RESULTS JESUS Document from: [facility] Associated on: Feb 08, 2024@07:43:48 [...] of the ear, left zygomatic cheek, left adventist IMPRESSION BASED ON IMAGES AND INFORMATION REVIEWED: [...] 02/08/2024 07:43 * END OF REMOTE RESULTS /akylynn/ RAISA HAIR TELEHEALTH CLINICAL COLOR CARD MAKER Signed: 02/08/2024 08:15 Receipt Acknowledged By: 02/08/2024 08:21 /es/ SKYLAR GREGORY MD PHYSICIAN RAISA HAIR [place] [facility] [facility] Feb 08, 2024 08:13 AM TELEHEALTH NOTE: [...] face etc. REMOTE RESULTS JESUS Document from: [facility] Associated on: Feb 08, 2024@07:43:48 [...] of the ear, left zygomatic cheek, left adventist IMPRESSION BASED ON IMAGES AND INFORMATION REVIEWED: [...] REMOTE RESULTS /kaylynn/ RAISA HAIR TELEHEALTH CLINICAL COLOR CARD MAKER Signed: 02/08/2024 08:15 Receipt Acknowledged By: 02/08/2024 08:21 /kaylynn/ SKYLAR GREGORY MD PHYSICIAN 02/21/2024 ADDENDUM STATUS: COMPLETED Pt called asking to go over his results please call # on file. /kaylynn/ RAISA HAIR TELEHEALTH CLINICAL COLOR CARD MAKER Signed: 02/21/2024 14:51 Receipt Acknowledged By: * AWAITING SIGNATURE * SKYLAR GREGORY JESSICA A [place] [facility] [facility] Feb 07, 2024 02:00 PM TELEHEALTH CONSULT [...] notes possible actinic keratosis type lesions on adventist area of forehead. PROBLEM A LOCATION(S): Head/Neck bilateral temples DURATION: 3-4 months SYMPTOMS: Itch, Redness CHANGES: None TREATMENT: Yes Details: over the counter cream is helping they are less red now pt doesn't know the name of the cream BIOPSY: No Chief Specialist Leed's comments: Imaged per providers direction and facility protocol /kaylynn/ RAISA HAIR TELEHEALTH CLINICAL COLOR CARD MAKER Signed: 02/07/2024 14:32 RAISA HAIR [facility]L [facility]
--- OUTSIDE RECORDS SUMMARY | 2024-04-21 08:05 | XMS_ITS | Encounter Summary ---
Author Name [facility] ([place]) Organization [facility] ([place]) Address [address] [place] [address] Care Team Providers Care Developer Advisor Name Role Phone SKYLAR GREGORY Primary [...] Witt's Name Patient's Relationship to Policy Witt [facility] (WNR) MEDICARE ADVANTAGE [facility] (WNR) May 07, 2017 [id number] MILLIE AG SR PATIENT Selected Encounter This section includes the information on record at ID for the Encounter. Date/Time Encounter Type Encounter Description Reason Pro vider Source September 25, 2023 11:31 AM Outpatient Encounter PODIATRY IHE Encounter Template Text not used by ID Plan of Treatment: Future Appointments (+ 6 months) and Future Tests (+/- 45 days) The Plan of Treatment section includes future care activities for the patient from all ID treatmentfacilities. This section includes future appointments and future orders which are active, pending or scheduled. Future Appointments This section includes appointments that were scheduled to occur 6 months from the date of the Encounter, up to a maximum of 20 appointments. The data comes from all ID treatment facilities. Appointment Date/Time Appointment Type Appointme nt Facility Name Oct 25, 2023 08:30 AM AMBULATORY - MEDICINE [facility] [place] [facility] Dec 25, 2023 08:30 AM AMBULATORY - MEDICINE [facility] [place] [facility] Dec 25, 2023 09:00 AM AMBULATORY - MEDICINE [facility] [place] [facility] Jan 22, 2024 09:30 AM AMBULATORY - MEDICINE [facility] [place] [facility] Feb 07, 2024 02:00 PM AMBULATORY - NONE [facility] [place] [facility] Feb 07, 2024 03:00 PM AMBULATORY - MEDICINE [facility] [place] [facility] Social History: Smoking Status (Most current) and Tobacco Use (All prior to encounter date) This section includes the most current, and the historical, smoking and tobacco- related health factors from the ID facility where the Encounter took place. Current Smoking Status This section includes the most current smoking, or tobacco-related health factor, from the ID facility where the Encounter took place. Date/Time Current Smoking Status Comment [facility] it May 03, 2023 09:30 AM VA-TOBACCO FORMER USER [facility] [place] [facility] Tobacco Use History This section includes a history of the smoking, or tobacco-related health factors, that were collected on or before the date of the Encounter. The data comes from the ID facility where the Encounter took place. Date/Time Smoking Status/Tobac co Use Comment Facility May 03, 2023 09:30 AM VA-TOBACCO QUIT 15 YRS OR MORE [facility] [place] [facility] Oct 26, 2021 10:00 AM VA-TOBACCO FORMER USER [facility] [place] [facility] Oct 26, 2021 10:00 AM VA-TOBACCO QUIT 15 YRS OR MORE [facility] [place] [facility] Aug 19, 2020 08:30 AM VA-TOBACCO FORMER USER [facility] [place] [facility] Aug 19, 2020 08:30 AM VA-TOBACCO QUIT 15 YRS OR MORE [facility] [place] [facility] May 21, 2018 09:36 AM VA-TOBACCO FORMER USER [facility] [place] [facility] May 21, 2018 09:36 AM VA-TOBACCO QUIT 15 YRS OR MORE [facility] [place] [facility] May 21, 2018 08:51 AM VA-TOBACCO NEVER USED [facility] [place] [facility] May 09, 2017 09:38 AM QUIT TOBACCO USE > 7 YEARS AGO quit 35 yrs ago [facility] [place] [facility] May 09, 2016 09:45 AM LIFETIME NON-TOBACCO USER ID [facility] [place] [facility] May 06, 2015 08:02 AM QUIT TOBACCO USE > 7 YEARS AGO pt states he stopped smoking 20 yrs ago [facility] [place] [facility] Apr 05, 2009 02:04 PM QUIT TOBACCO USE > 7 YEARS AGO QUIT [facility] Encounter Notes: All associated encounter notes This section contains the clinical notes associated to the Encounter. Date/Time Encounter Note(s) Provider Source September 25, 2023 11:34 AM LETTERS: LOCAL TITLE: PATIENT LETTER (B) STANDARD TITLE: LETTERS DATE OF NOTE: SEPTEMBER 25, 2023@11:34 ENTRY DATE: SEPTEMBER 25, 2023@11:34:33 AUTHOR: ALEXANDER MCCLELLAN COSIGNER: URGENCY: STATUS: COMPLETED SEPTEMBER 25, 2023 MILLIE AG [address] [place] [id number] Dear MILLIE AG Thank you for choosing the [facility] of [facility] (ID) [facility] as your primary choice for health care. [...] would like to be seen, please contact ID Call Center at ext. [phone] to schedule an appointment. Thank you for your service to our nation, and we look forward to hearing from you soon. Sincerely, [facility] [address] [facility] [address] [place] [address] [place] [address] [phone] [facility] [address] [facility] [address] [place] [address] [place] [address] ext. [phone] [place] [facility] [address] [address] [place] [address] ext. [phone] ALEXANDER MCCLELLAN [facility] September 25, 2023 11:31 AM ADMINISTRATIVE [...] Disposition on Oct 3rd attempt: 4th attempt: [place] cancelled appointment as his INR was at a 7 and he was told to hold off on this appointment until he rechecks it next week. /jannette MCCLELLAN ADVANCED FITNESS SUPERVISOR Signed: 09/25/2023 11:33 09/25/2023 ADDENDUM STATUS: COMPLETED Nurse and provider notified via teams. /jannette MCCLELLAN ADVANCED FITNESS SUPERVISOR Signed: 09/25/2023 11:33 10/09/2023 ADDENDUM STATUS: COMPLETED RTC 10/03/2023 dispositioned due to veterans failure to respond to all contact efforts per department standards. Dispositioned on 10/09/2023. /jannette MCCLELLAN ADVANCED FITNESS SUPERVISOR Signed: 10/09/2023 11:31 ALEXANDER MCCLELLAN [facility]
--- OUTSIDE RECORDS SUMMARY | 2024-04-21 08:05 | XMS_ITS | Encounter Summary ---
Author Name [facility] of [facility] [place]) Organization [facility] of [place] [place] Address [address] [place] [address] Care Team Providers Care Fractionation Plant Supervisor Name Role Phone SKYLAR GREGORY Primary Care [...] Witt's Name Patient's Relationship to Policy Witt [facility] (WNR) MEDICARE ADVANTAGE [facility] (WNR) May 07, 2017 [id number] MILLIE AG SR PATIENT Selected Encounter This section includes the information on record at [place] for the Encounter. Date/Time Encounter Type Encounter Description Reason Pro vider Source Feb 11, 2024 09:02 AM Outpatient Encounter DERMATOLOGY IHE Encounter Template Text not used by VA Plan of Treatment: Future Appointments (+ 6 [...] 20 appointments. The data comes from all [place] treatment facilities. Appointment Date/Time Appointment Type Appointme nt Facility Name Apr 17, 2024 10:00 AM AMBULATORY - MEDICINE [place] [facility] [place] [facility] Jun 09, 2024 10:00 AM [facility] [place] [facility] Active, Pending, and Scheduled Orders This section includes a listing of several types of active, pending, and scheduled orders, including clinic medications orders, diagnostic test orders, procedure orders and consult orders; where the start date of the order is 45 days before the date of the Encounter or 45 days after the date of theEncounter. The data comes from all DE treatment facilities. Test Date/Time Test Type Test Details Facility Name Feb 08, 2024 08:25 AM Consult Order DERMATOLOG Y/NHM (OUTPT) Cons Application Development Project Manager's Choice [place] [facility] [place] [facility] Social History: Smoking Status (Most current) and Tobacco Use (All prior to encounter date) This section includes the most current, and the historical, smoking and tobacco- related health factors from the DE facility where the Encounter took place. Current Smoking Status This section includes the most current smoking, or tobacco-related health factor, from the DE facility where the Encounter took place. Date/Time Current Smoking Status Comment [facility] it May 03, 2023 09:30 AM VA-TOBACCO FORMER USER [place] [facility] [place] [facility] Tobacco Use History This section includes a history of the smoking, or tobacco-related health factors, that were collected on or before the date of the Encounter. The data comes from the DE facility where the Encounter took place. Date/Time Smoking Status/Tobac co Use Comment Facility May 03, 2023 09:30 AM VA-TOBACCO QUIT 15 YRS OR MORE [facility] [place] [facility] Oct 26, 2021 10:00 AM VA-TOBACCO FORMER USER DE [facility] [place] [facility] Oct 26, 2021 10:00 AM VA-TOBACCO QUIT 15 YRS OR MORE [facility] [place] [facility] Aug 19, 2020 08:30 AM VA-TOBACCO FORMER USER [facility] [facility] Aug 19, 2020 08:30 AM VA-TOBACCO QUIT 15 YRS OR MORE [facility] [facility] May 21, 2018 09:36 AM VA-TOBACCO FORMER USER [facility] [facility] May 21, 2018 09:36 AM VA-TOBACCO QUIT [facility] OR [facility] [place] [facility] May 21, 2018 08:51 AM VA-TOBACCO NEVER USED [place] [facility] [facility] May 09, 2017 09:38 AM QUIT TOBACCO USE > 7 YEARS AGO quit 35 yrs ago [facility] [place] [facility] May 09, 2016 09:45 AM LIFETIME NON-TOBACCO US[facility] [place] [facility] May 06, 2015 08:02 AM QUIT TOBACCO USE > 7 YEARS AGO pt states he stopped smoking 20 yrs ago [facility] [place] [facility] Apr 05, 2009 02:04 PM QUIT TOBACCO USE > 7 YEARS AGO QUIT 15 YEARS AGO [facility] Encounter Notes: All associated encounter notes This section contains the clinical notes associated to the Encounter. Date/Time Encounter Note(s) Provider Source Feb 11, 2024 09:02 AM LETTERS: LOCAL TITLE: PATIENT LETTER (B) STANDARD TITLE: LETTERS DATE OF NOTE: FEB 11, 2024@09:02 ENTRY DATE: FEB 11, 2024@09:02:59 AUTHOR: ANGIE DURAND EXP COSIGNER: URGENCY: STATUS: COMPLETED FEB 11, 2024 MILLIE AG [address] [place] [id number] Dear MILLIE AG We would like to assist you in scheduling a DERMATOLOGY appointment at the [place]. We have been unable to reach you by phone. To schedule this appointment please call toll free Ext [phone]. Our booking appointment hours are Sunday through Sunday from 8:00 am to 4:00 pm. Please leave a message if you receive voicemail and let us know a good time and telephone number where we can reach you. If we dont hear back from you within 14 days from the date of this letter we will discontinue the request. If you have already scheduled this appointment, please disregard this letter. Your health is important to us. Sincerely, [facility] [address] [address] [place] [address] ext. [phone] [place] [facility] Outpatient [facility] [address] [facility] [address] [place] [address] [place] [address] [phone] [place] [facility] [address] [address] [place] [address] ext. [phone] [place] [facility] [address] [place] [address] ext. [phone] ANGIE DURAND [facility]
--- OUTSIDE RECORDS SUMMARY | 2024-04-21 08:05 | XMS_ITS | Encounter Summary ---
Author Name [facility] of Veter[facility] ([place] Organization [place] Address [address] [place] [address] Care Team Providers Care Clinical Nursing Director Name Role Phone SKYLAR GREGORY Primary Care [...] Witt's Name Patient's Relationship to Policy Witt [facility] (WNR) MEDICARE ADVANTAGE [facility] (WNR) May 07, 2017 [id number] MILLIE AG SR PATIENT Selected Encounter This section includes the information on record at [place] for the Encounter. Date/Time Encounter Type Encounter Description Reason Pro vider Source Jan 09, 2024 12:00 AM Outpatient Encounter EVENT (HISTORICAL) IHE Encounter Template Text not used by MT Plan of Treatment: Future Appointments (+ 6 [...] 20 appointments. The data comes from all [place] treatment facilities. Appointment Date/Time Appointment Type Appointme nt Facility Name Jan 22, 2024 09:30 AM AMBULATORY - MEDICINE [facility] [place] [facility] Feb 07, 2024 02:00 PM AMBULATORY - NONE [place] [facility] [place] [facility] Feb 07, 2024 03:00 PM AMBULATORY - MEDICINE [facility] [place] [facility] Apr 17, 2024 10:00 AM AMBULATORY - MEDICINE [facility] [place] [facility] Jun 09, 2024 10:00 AM AMBULATORY - MEDICINE [facility] Active, Pending, and Scheduled Orders This section includes a listing of several types of active, pending, and scheduled orders, including clinic medications orders, diagnostic test orders, procedure orders and consult orders; where the start date of the order is 45 days before the date of the Encounter or 45 days after the date of theEncounter. The data comes from all [place] treatment facilities. Test Date/Time Test Type Test Details Facility Name Feb 08, 2024 08:25 AM Consult Order DERMATOLOG Y/NHM (OUTPT) Cons Mate Relief's Choice [facility] Immunizations: All administered on the encounter date This section contains immunizations associated to the Encounter. Immunization Series Date Issued Reaction Comments INFLUENZA, UNSPECIFIED FORMULATION Jan 09, 2024 Social History: Smoking Status (Most current) and Tobacco Use (All prior to encounter date) This section includes the most current, and the historical, smoking and tobacco- related health factors from the [place] facility where the Encounter took place. Current Smoking Status This section includes the most current smoking, or tobacco-related health factor, from the [place] facility where the Encounter took place. Date/Time Current Smoking Status Comment [facility] May 03, 2023 09:30 AM VA-TOBACCO FORMER USER [facility] Tobacco Use History This section includes a history of the smoking, or tobacco-related health factors, that were collected on or before the date of the Encounter. The data comes from the [place] facility where the Encounter took place. Date/Time Smoking Status/Tobac co Use Comment Facility May 03, 2023 09:30 AM VA-TOBACCO QUIT 15 YRS OR [facility] Oct 26, 2021 10:00 AM VA-TOBACCO [facility] [place] [facility] Oct 26, 2021 10:00 AM VA-TOBACCO QUIT 15 YRS OR MORE [place] [facility] [place] [facility] Aug 19, 2020 08:30 AM VA-TOBACCO FORMER USER VA [facility] [place] [facility] Aug 19, 2020 08:30 AM VA-TOBACCO QUIT 15 YRS OR MORE MT [facility] [place] [facility] May 21, 2018 09:36 AM VA-TOBACCO FORMER USER MT [facility] [place] [facility] May 21, 2018 09:36 AM VA-TOBACCO QUIT 15 YRS OR MORE MT [facility] [place] [facility] May 21, 2018 08:51 AM VA-TOBACCO NEVER USED MT [facility] [place] [facility] May 09, 2017 09:38 AM QUIT TOBACCO USE > 7 YEARS AGO quit 35 yrs ago MT [facility] [place] [facility] May 09, 2016 09:45 AM LIFETIME NON-TOBACCO USER [facility] [place] [facility] May 06, 2015 08:02 AM QUIT TOBACCO USE > 7 YEARS AGO pt states he stopped smoking 20 yrs ago MT [facility] [place] [facility] Apr 05, 2009 02:04 PM QUIT TOBACCO USE > 7 YEARS AGO QUIT 15 YEARS AGO MT [facility] [place] [facility]
--- OUTSIDE RECORDS SUMMARY | 2024-04-21 08:05 | XMS_ITS | Encounter Summary ---
Author Name [place] Address [address] [place] [address] Care Team Providers Care Merry Go Round Operator Name Role Phone SKYLAR GREGORY Primary [...] Witt's Name Patient's Relationship to Policy Witt [facility] (WNR) MEDICARE ADVANTAGE [facility] (WNR) May 07, 2017 [id number] MILLIE AG SR PATIENT Selected Encounter This section includes the information on record at [place] for the Encounter. Date/Time Encounter Type Encounter Description Reason Provider Source Feb 08, 2024 07:40 AM Outpatient Encounter DERMATOLOGY ICD-10-CM L57.0 Actinic keratosis RONAL KENDRICK [facility] Encounter Template Text not used by [place] Assessments - Encounter Diagnoses This section includes the primary and secondary diagnoses documented for the Encounter. Date/Time Primary/Secondary Diagnosis Diagnosis Name Provider Source Feb 08, 2024 07:43 AM PRIMARY Actinic keratosis [facility] Plan of Treatment: Future Appointments (+ 6 months) and Future Tests (+/- 45 days) The Plan of Treatment section includes future care activities for the patient from all [place] treatmentfacilities. This section includes future appointments and future orders which are active, pending or scheduled. Future Appointments This section includes appointments that were scheduled to occur 6 months from the date of the Encounter, up to a maximum of 20 appointments. The data comes from all [facility]. Appointment Date/Time Appointment Type Appointme nt Facility Name Apr 17, 2024 10:00 AM AMBULATORY - MEDICINE [facility] Jun 09, 2024 10:00 AM AMBULATORY - MEDICINE [facility] Active, Pending, and Scheduled Orders This section includes a listing of several types of active, pending, and scheduled orders, including clinic medications orders, diagnostic test orders, procedure orders and consult orders; where the start date of the order is 45 days before the date of the Encounter or 45 days after the date of theEncounter. The data comes from all [facility]. Test Date/Time Test Type Test Details Facility Name Feb 08, 2024 08:25 AM Consult Order DERMATOLOG Y/NHM (OUTPT) Cons Electronics Warfare Technician's Choice [facility] Encounter Notes: All associated encounter notes This section contains the clinical notes associated to the Encounter. Date/Time Encounter Note(s) Provider Source Feb 08, 2024 07:40 AM TELEIMAGING REPORT : LOCAL TITLE: CONSULT-TELEDERMATOLOGY IMAGING REPORT STANDARD TITLE: TELEIMAGING REPORT DATE OF NOTE: FEB 08, 2024@07:40 ENTRY DATE: FEB 08, 2024@07:40:43 AUTHOR: RONAL KENDRICK COSIGNER: URGENCY: STATUS: COMPLETED HISTORY: 88-year-old male [...] of the ear, left zygomatic cheek, left mandaen IMPRESSION BASED ON IMAGES AND INFORMATION REVIEWED: PROBLEM A: Diagnosis: Actinic Keratosis RECOMMENDATIONS FOR REFERRING PROVIDER: PROBLEM A: Liquid nitrogen cryotherapy: TIME-SENSITIVITY: No time-sensitive, urgent, emergent or life-threatening results. RECOMMENDED FOLLOW-UP (Include Clinically Indicated Date (JEFFREY)): Consult to Dermatology clinic for follow up JEFFREY: Routine Cumulative time of review and management: 5 minutes or more /kaylynn/ Ronal Kendrick PA-C Dermatology Signed: 02/08/2024 07:43 [facility]
--- OUTSIDE RECORDS SUMMARY | 2024-04-21 08:05 | XMS_ITS ---
Author Name [facility] [place] Address [address] [place] [address] Care Team Providers Care Gear Shaver Set Up Operator Name Role Phone SKYLAR GREGORY Primary [...] Witt's Name Patient's Relationship to Policy Witt [facility] (WNR) MEDICARE ADVANTAGE [facility] (WNR) May 07, 2017 [id number] MILLIE AG SR PATIENT Selected Encounter This [...] Puckering of macula, left eye YOLI SOSA [place] [facility] [place] [facility] Plan of Treatment: Future Appointments (+ 6 months) and Future Tests (+/- 45 days) The Plan of Treatment section includes future care activities for the patient from all [place] [facility] This section includes future appointments and future orders which are active, pending or scheduled. Future Appointments This section includes appointments that were scheduled to occur 6 months from the date of the Encounter, up to a maximum of 20 appointments. The data comes from all [facility]. Appointment Date/Time Appointment Type Appointme nt Facility Name Jan 22, 2024 09:30 AM AMBULATORY - MEDICINE [facility] NTR [facility] Feb 07, 2024 02:00 PM [facility] Feb 07, 2024 03:00 PM AMBULATORY - MEDICINE [facility] NTR [facility] Apr 17, 2024 10:00 AM [facility] Jun 09, 2024 10:00 AM AMBULATORY - MEDICINE [facility] Active, Pending, and Scheduled Orders This section includes a listing of several types of active, pending, and scheduled orders, including clinic medications orders, diagnostic test orders, procedure orders and consult orders; where the start date of the order is 45 days before the date of the Encounter or 45 days after the date of theEncounter. The data comes from all [facility]. Test Date/Time Test Type Test Details Facility Name Feb 08, 2024 08:25 AM Consult Order DERMATOLOG Y/NHM (OUTPT) Cons Licensed Land Surveyor's Choice [facility] Social History: Smoking Status (Most [...] Facil ity May 03, 2023 09:30 AM [place]-TOBACCO QUIT 15 YRS OR MORE [facility] Tobacco Use History This section includes a history of the smoking, or tobacco-related health factors, that were collected on or before the date of the Encounter. The data comes from the [place] facility where the Encounter took place. Date/Time Smoking Status/Tobac co Use Comment Facility May 03, 2023 09:30 AM [place]-TOBACCO QUIT 15 YRS OR MORE [facility] [place] [facility] Oct 26, 2021 10:00 AM VA-TOBACCO FORMER USER [facility] [place] [facility] Oct 26, 2021 10:00 AM VA-TOBACCO QUIT 15 YRS OR MORE [facility] [place] [facility] Aug 19, 2020 08:30 AM VA-TOBACCO FORMER USER [facility] [place] [facility] Aug 19, 2020 08:30 AM VA-TOBACCO QUIT 15 YRS OR MORE [facility] [place] [facility] May 21, 2018 09:36 AM VA-TOBACCO FORMER USER [place] [facility] [place] [facility] May 21, 2018 09:36 AM VA-TOBACCO QUIT 15 YRS OR MORE [place] [facility] [place] [facility] May 21, 2018 08:51 AM VA-TOBACCO NEVER USED [facility] [place] [facility] May 09, 2017 09:38 AM QUIT TOBACCO USE > 7 YEARS AGO quit 35 yrs ago [facility] [place] [facility] May 09, 2016 09:45 AM LIFETIME NON-TOBACCO USER [facility] [place] [facility] May 06, 2015 08:02 AM QUIT TOBACCO USE > 7 YEARS AGO pt states he stopped smoking 20 yrs ago [place] [facility] [place] [facility] Apr 05, 2009 02:04 PM QUIT TOBACCO USE > 7 YEARS AGO QUIT 15 YEARS AGO [place] [facility] [place] [facility] Encounter Notes: All associated encounter notes [...] Signed: 12/25/2023 10:53 /kaylynn/ YOLI SOSA OD CREDIT COLLECTIONS ANALYST Cosigned: 12/25/2023 11:15 12/25/2023 ADDENDUM STATUS: COMPLETED The optometry leadership program intern participated in this exam. I saw this in conjunction with the optometry student. The visual images were captured by the optometry health wind energy technician. Results of testing assessed by the student and reviewed by myself. 's history, complaints and student's findings and plan reviewed. I reviewed and agree with the stated findings, assessment and plan. I have added/edited the documentation to reflect my exam findings and changes to the assessment and plan. /kaylynn/ YOLI SOSA OD CREDIT COLLECTIONS ANALYST Signed: 12/25/2023 11:15 DARCY [facility] [place] [facility]
--- OUTSIDE RECORDS SUMMARY | 2024-04-21 08:05 | XMS_ITS | Encounter Summary ---
Author Name [facility] [place] Address [address] [place] [address] Care Team Providers Care Annealing Oven Operator Name Role Phone SKYLAR GREGORY Primary [...] Witt's Name Patient's Relationship to Policy Witt [facility] (WNR) MEDICARE ADVANTAGE [facility] (WNR) May 07, 2017 [id number] MILLIE AG SR PATIENT Selected Encounter This section includes the information on record at [place] for the Encounter. Date/Time Encounter Type Encounter Description Reason Provider Source Oct 25, 2023 08:30 AM Outpatient Encounter TELEPHONE TRIAGE ICD-10-CM S46.911A Strain unsp musc/fasc/ten d at shldr/up arm, right arm, init TRACI CHASE NP [facility] Encounter Template Text not used by [place] Assessments - Encounter Diagnoses This section includes the primary and secondary diagnoses documented for the Encounter. Date/Time Primary/Secondary Diagnosis Diagnosis Name Provider Source Oct 25, 2023 08:30 AM PRIMARY Strain unsp musc/fasc/tend at shldr/up arm, right arm, init TRACI CHASE NP [facility] Oct 25, 2023 08:30 AM SECONDARY Low back pain, unspecified [facility]ACI 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. This section includes future appointments and future orders which are active, pending or scheduled. Future Appointments This section includes appointments that were scheduled to occur 6 months from the date of the Encounter, up to a maximum of 20 appointments. The data comes from all [place] treatment facilities. Appointment Date/Time Appointment Type Appointme nt Facility Name Dec 25, 2023 08:30 AM AMBULATORY - MEDICINE [facility] Dec 25, 2023 09:00 AM AMBULATORY - MEDICINE [place] [facility] Jan 22, 2024 09:30 AM AMBULATORY - MEDICINE [place] [facility] Feb 07, 2024 02:00 PM AMBULATORY - NONE [place] [facility] [facility] Feb 07, 2024 03:00 PM AMBULATORY - MEDICINE [place] [facility] Apr 17, 2024 10:00 AM AMBULATORY - MEDICINE [facility] Social History: Smoking Status (Most current) and Tobacco Use (All prior to encounter date) This section includes the most current, and the historical, smoking and tobacco- related health factors from the [place] facility where the Encounter took place. Current Smoking Status This section includes the most current smoking, or tobacco-related health factor, from the [place] facility where the Encounter took place. Date/Time Current Smoking Status Comment Facil it May 03, 2023 09:30 [facility] Tobacco Use History This section includes a history of the smoking, or tobacco-related health factors, that were collected on or before the date of the Encounter. The data comes from the [place] facility where the Encounter took place. Date/Time Smoking Status/Tobac co Use Comment Facility May 03, 2023 09:30 AM VA-TOBACCO QUIT 15 YRS OR MORE [place] [facility] [place] [facility] Oct 26, 2021 10:00 AM VA-TOBACCO FORMER USER [place] [facility] [place] [facility] Oct 26, 2021 10:00 AM VA-TOBACCO QUIT 15 YRS OR MORE [place] [facility] [place] [facility] Aug 19, 2020 08:30 AM VA-TOBACCO FORMER USER [place] [facility] [place] [facility] Aug 19, 2020 08:30 AM VA-TOBACCO QUIT 15 YRS OR MORE [place] [facility] [place] [facility] May 21, 2018 09:36 AM VA-TOBACCO FORMER USER [place] [facility] [place] [facility] May 21, 2018 09:36 AM VA-TOBACCO QUIT 15 YRS OR MORE [place] [facility] [facility] May 21, 2018 08:51 AM VA-TOBACCO NEVER USED [place] [facility] [place] [facility] May 09, 2017 09:38 AM QUIT TOBACCO USE > 7 YEARS AGO quit 35 yrs ago [place] [facility] [place] [facility] May 09, 2016 09:45 AM LIFETIME NON-TOBACCO USER [place] [facility] [place] [facility] May 06, 2015 08:02 AM QUIT TOBACCO USE > 7 YEARS AGO pt states he stopped smoking 20 yrs ago [place] [facility] [place] [facility] Apr 05, 2009 02:04 PM QUIT TOBACCO USE > 7 YEARS AGO QUIT 15 YEARS AGO [place] [facility] [place] [facility] Encounter Notes: All associated encounter [...] was obtained as follows: Patient's current address [address] [place] [address] [place] [id number] Patient's Phone Number:PATIENT PHONE - PHONE NUMBER [CELLULAR] - NONE FOUND Primary NOK: PERRY VAZQUEZ Relation: EXTENDED FAMILY M [address] [place], [place] [address] Subjective: mr. 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 Abnormal vision ([facility] 9730785) N40.0 Benign Prostatic Hypertrophy Without Outflow Obstruction ([facility] [id number]) I10. Essential hypertension ([facility] 52075270) E03.9 Hypothyroidism ([facility] [id number]) 435.9 Transient Ischemic Attack (ICD-9-CM 435.9) E78.5 HLD - Hyperlipidemia ([facility] 12030517) H90.5 Hearing loss ([facility] [id number]) ALLERGIES/ADR: Patient has answered NKA Active Outpatient [...] 2-3 weeks if PT is needed. -Notify [facility] team Plan: Issue resolved with Tele Urgent Care appointment Patient verbalizes understanding of the care plan Time spent in telephone/video visit: /kaylynn/ TRACI CHASE AGPCNP- VIS[facility] 1 Clinical Contact Center Signed: 10/25/2023 09:33 Receipt Acknowledged By: 10/26/2023 09:37 /es/ MINERVA CASTRO, MSN, RN, CNL PRIMARY CARE TEAM NURSE TRACI CHASE NP [place] [facility]
--- OUTSIDE RECORDS SUMMARY | 2024-04-21 08:05 | XMS_ITS | Encounter Summary ---
Author Name Department [place] Organization [place] Address [address] [place] [address] Care Team Providers Care Bulb Planter Name Role Phone SKYLAR GREGORY Primary Care [...] Witt's Name Patient's Relationship to Policy Witt [facility] (WNR) MEDICARE ADVANTAGE [facility] (WNR) May 07, 2017 [id number] MILLIE AG SR PATIENT Selected Encounter This section includes the information on record at [place] for the Encounter. Date/Time Encounter Type Encounter Description Reason Pro vider Source Oct 23, 2023 01:51 PM Outpatient Encounter TELEPHONE TRIAGE IHE Encounter Template Text not used by [...] 20 appointments. The data comes from all [place] treatment facilities. Appointment Date/Time Appointment Type Appointme nt Facility Name Oct 25, 2023 08:30 AM AMBULATORY - MEDICINE [facility] [place] [facility] Dec 25, 2023 08:30 AM AMBULATORY - MEDICINE [facility] [place] [facility] Dec 25, 2023 09:00 AM AMBULATORY - MEDICINE [facility] [place] [facility] Jan 22, 2024 09:30 AM AMBULATORY - MEDICINE [facility] [place] [facility] Feb 07, 2024 02:00 PM AMBULATORY - NONE [place] [facility] [place] [facility] Feb 07, 2024 03:00 PM AMBULATORY - MEDICINE [facility] [place] [facility] Apr 17, 2024 10:00 AM AMBULATORY - MEDICINE [place] [facility] [place] [facility] Social History: Smoking Status (Most current) [...] AM VA-TOBACCO QUIT 15 YRS OR MORE [place] [facility]TRL [place] [facility] Tobacco Use History This section includes a history of the smoking, or tobacco-related health factors, that were collected on or before the date of the Encounter. The data comes from the [place] facility where the Encounter took place. Date/Time Smoking Status/Tobac co Use Comment Facility May 03, 2023 09:30 AM VA-TOBACCO QUIT 15 YRS OR MORE [place] [facility] [place] [facility] Oct 26, 2021 10:00 AM VA-TOBACCO FORMER USER [facility] [place] [facility] Oct 26, 2021 10:00 AM VA-TOBACCO QUIT 15 YRS OR MORE [place] [facility] [place] [facility] Aug 19, 2020 08:30 AM VA-TOBACCO FORMER USER [place] [facility] [place] [facility] Aug 19, 2020 08:30 AM VA-TOBACCO QUIT 15 YRS OR MORE [place] [facility] [place] [facility] May 21, 2018 09:36 AM VA-TOBACCO FORMER USER [facility] [place] [facility] May 21, 2018 09:36 AM VA-TOBACCO QUIT [facility] YRS OR [facility] [place] [facility] May 21, 2018 08:51 AM VA-TOBACCO NEVER USED [place] [facility]TR [place] [facility] May 09, 2017 09:38 AM QUIT TOBACCO USE > 7 YEARS AGO quit 35 yrs ago [place] [facility]L [place] [facility] May 09, 2016 09:45 AM LIFETIME [facility]-TOBACCO US[facility] [place] [facility] May 06, 2015 08:02 AM QUIT TOBACCO USE > 7 YEARS AGO pt states he stopped smoking [facility] yrs [facility] Apr 05, 2009 02:04 PM QUIT TOBACCO USE > 7 YEARS AGO QU[facility] Encounter Notes: All associated encounter notes This section contains the clinical notes associated to the Encounter. Date/Time Encounter Note(s) Provider Source Oct 23, 2023 01:51 PM RN PROGRESS NOTE: LOCAL TITLE: CCC: CLINICAL TRIAGE STANDARD TITLE: RN PROGRESS NOTE DATE OF NOTE: OCT 23, 2023@13:51:41 ENTRY DATE: OCT 23, 2023@13:51:41 AUTHOR: DIONNE SIMMONS COSIGNER: URGENCY: STATUS: COMPLETED CCC: CLINICAL TRIAGE Has ADDENDA Patient Demographics Patient Name: MILLIE AG Patient Primary Address: [address] [place] [id number] Patient Primary Phone: [phone] Patient : 1935 Patient Age: 88 Current Location: [place] Caller/Recipient Relation to Patient: Self Emergency Contact: PERRY VAZQUEZ Triage Summary Chief Complaint: Back Pain System WHEN: Within 3 Days Nurse's Recommendation / WHEN: Within 3 Days System WHERE: Clinic Nurse's Recommendation / WHERE: Clinic/[facility] Patient Disposition Patient/Caregiver agrees to plan of care: Yes Nursing Plan and Disposition Referred Patient for In-Person Appt Transferred patient to Sched & Admin-Apt Other course(s) of action Generated msg to PACT/Provider Provided guidance for worsening symptoms: *Caller/Patient* advised to call facilities [place] Clinical Contact Center or seek immediate medical attention for new or worsening symptoms Nurse Summary Nurse Summary: back pain/side pain right side Pt. reports that he has been having intermittent back pain mid back on the right side for over a month. He states he did see his outside PC a few weeks ago and was told he had a slight wheeze but pt. is denying SOB, wheezing, CP. He does play golf and also practicing martial arts, and feels that the pain does occur intermittently and with certain movements. PLAN: VACC recommends f/u within 3 days, RN advised the same. Pt transferred to [facility] for scheduling. 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 Pt. also aware he can call triage back, aware of 27/11 triage line and [place] [facility] benefits if necessary. Of note, pt. also reports occasional burning sensation to left hand at night and unable to bend left ring finger completely. He can discuss this further as well with provider during visit for back. Clinical Contact Center Codes Clinic/Location: V1 CWM PHONE CCC RN TXCC Triage Complete Triage Date: 10/23/2023, 01:40 PM Triage Note: Phone Triage 23 Oct 2023 17:30:18 +0000 [facility] Demographics 88 y/o Male Results CC: Back Pain Software suggested: Within 3 Days Software suggested follow-up location: Clinic, consider virtual care Values and Measures Duration of CC: 1 Months Positive Responses HPI: back pain, duration longer than 1 month MEDS: cholesterol-lowering medication PMH: angina PMH: heart disease PMH: high cholesterol VS: temperature not taken Negative Responses Denies: HPI: abdominal pain, with back pain Denies: HPI: arm, shoulder or jaw pain, with back pain Denies: HPI: back injury, recent Denies: HPI: back pain, lower back Denies: HPI: back pain, moderate to severe Denies: HPI: back pain, severe Denies: HPI: back pain, worsening Denies: HPI: cancer Denies: HPI: chest pain, with back pain Denies: HPI: diaphoresis, with back pain, duration longer than 10 minutes Denies: HPI: difficulty walking Denies: HPI: dyspnea, with back pain Denies: HPI: dysuria Denies: HPI: hematuria Denies: HPI: increased urinary frequency Denies: HPI: leg numbness, unilateral Denies: HPI: leg weakness, bilateral, new Denies: HPI: leg weakness, unilateral Denies: HPI: lightheadedness with back pain, duration longer than 10 minutes Denies: HPI: muscle tenderness, generalized Denies: HPI: myalgias, generalized Denies: HPI: numbness, groin or legs, new Denies: HPI: pain, radiation down leg Denies: HPI: skin erythema, back, worsening Denies: HPI: skin lump, swollen, painful, over the back Denies: HPI: skin swelling, back, worsening Denies: HPI: symptoms similar to past angina Denies: HPI: syncope Denies: HPI: urinary incontinence Denies: HPI: urinary urgency, constant Denies: HPI: vomiting Denies: HPI: weakness, duration longer than 10 minutes, with the back pain Denies: PMH: aortic aneurysm Denies: PMH: heart attack Denies: PMH: Marfan syndrome Denies: PMH: UTI /kaylynn/ DIONNE PAN RN Signed: 10/23/2023 13:51 Receipt Acknowledged By: 10/26/2023 09:36 /kaylynn/ CELSO JAIN, RN, CNL PRIMARY CARE TEAM NURSE 10/26/2023 09:30 /kaylynn/ Tsering Aguilar snap shearer Staff Nurse 10/26/2023 ADDENDUM STATUS: COMPLETED had a [facility]-emergency care [facility] ANTIQUE AUTOMOBILES REPAIRER on 10/24@08;30. Issue resolved. /kaylynn/ MINERVA CASTRO MSN, RN, CNL PRIMARY CARE TEAM NURSE Signed: 10/26/2023 09:36 DIONNE SIMMONS CNTL WSTRN [facility]
--- NOTE | 2024-04-21 08:41 | MHC.PC.OV ---
Vital Signs 04/21/24 08:42 Height 5 ft 6 in Weight 178 lb BMI 28.7 BP 130/60 Blood Pressure Location Rt brachial Position Sitting Respiration 14 Pulse 64 Pulse Source Pulse Oximeter Temp 97.5 F Temp Source Oral Pulse Oximetry (%) 97 Oxygen Delivery Method Room Air Intake Visit Reasons: pcp follow up htn, dm Intake Note: DM FOLLOW UP AND HTN Allergies hydralazine [Hydralazine] Allergy (Unknown, Verified 04/21/24 08:41) SEVERE HEADACHE Tobacco use date assessed: 07/17/23 Dental Screening Dental Screen Date: 07/17/23 HPI pcp follow up htn, dm HPI Details 89 y/o male presents to f/u hypertension, diabetes. Blood pressure today 130/60, 64p. He is on lisinopril 5mg, amlodipine 5mg daily. Labs drawn 04/14/24. Reviewed labs with pt. A1c 6.3%. Creatinine level 1.51. Notes difficulty sleeping due to pain/urinary urgency. HPI Comments History of Present Illness Details Documentation assistance for Patrick Muniz MD, was provided by Xander Mendoza, Vocational Case Manager on 04/21/2024 at 8:49 AM EST. I, Dr. Muniz, have read, observed, and verified documentation. [facility] Medical History Chest pain RUQ pain Wheezing Elevated diaphragm Pulmonary nodules Aortic stenosis Edema CAD (coronary artery disease) Diabetes type 2, controlled Elevated prostate specific antigen between 10 and 19 ng/ml Atrial fibrillation Jayy's disease Elevated morning serum cortisol level Surgical History History of cardiac cath Hx of tonsillectomy Hx of colonoscopy Family History Father Colon cancer Mother HTN (hypertension) Type 2 diabetes mellitus Brother No problems noted. Sister No problems noted. Son No problems noted. Son No problems noted. Son No problems noted. Daughter No problems noted. Daughter No problems noted. Social History Housing: Apartment Alcohol intake: former Year quit: 1979 Patient Tobacco Use Status: Former Tobacco user Years Smoked: 45+ e-Cigarette/Vaping Use: Never Used Second Hand Smoke Exposure: No service: Yes ([employer] [id number]) Current occupational status: retired Current occupational exposures/hazards: No Cognitive needs: No Hearing needs: Yes Vision needs: No Questionnaire PHQ-9 Over the last 2 weeks, how often have you been bothered by any of the following problems? 1. Little interest or pleasure in doing things: not at all 2. Feeling down, depressed, or hopeless: not at all 3. Trouble falling or staying asleep, or sleeping too much: several days 4. Feeling tired or having little energy: not at all 5. Poor appetite or overeating: not at all 6. Feeling bad about yourself - or that you are a failure or have let yourself or your family down: not at all 7. Trouble concentrating on things, such as reading the newspaper or watching television: not at all 8. Moving or speaking so slowly that other people could have noticed. Or the opposite - being so fidgety or restless that you have been moving around a lot more than usual: not at all 9. Thoughts that you would be better off or of hurting yourself in some way: not at all Total score: 1 Source: Developed by Drs. Boston Abdi, Ermelinda Hutton, Nagi Berkowitz and colleagues, with an educational noni from [employer]. Thrive Questionnaire Date Thrive assessed: 04/21/24 I am a: Patient What is your living situation today?: I have a steady place to live Within the past 12 months, did the food you bought not last and you didn't have the money to get more?: I choose not to answer this question Within the past 12 months, did you worry whether your food would run out before you got money to buy more?: Sometimes True Do you have trouble paying for medicines?: Yes Do you have trouble getting transportation to medical appointments?: No Do you have trouble paying your heating and electricity bill?: No Do you have trouble taking care of your child, family member or friend?: No Do you have trouble with day-to-day activities such as bathing, preparing meals, shopping, managing finances, etc.?: No Are you currently unemployed and looking for a job?: No Are you interested in more education?: No Please select the resources that you would like help with: None THRIVE Score: 1 KOBE-7 AMB Questionnaire KOBE-7 Date KOBE - 7 assessed: 07/17/23 Source: Developed by Drs. Boston Abdi, Ermelinda Hutton, Nagi Berkowitz and colleagues, with an educational noni from [employer]. Review of Systems Const Denies chills, Denies fatigue, Denies fever(s), Denies headache(s) and Denies weakness ENT Denies dizziness and Denies headache(s) Card Denies chest pain, Denies lightheadedness, Denies dyspnea and Denies other (Palpitations) Resp Denies cough, Denies dyspnea, Denies wheezing and Denies other ( shortness of breath) Musc Denies numbness and Denies tingling Neuro Denies dizziness, Denies headache(s), Denies numbness, Denies tingling, Denies paresthesias and Denies weakness Psych Denies anxiety and Denies depression Endo Denies fatigue Aller/Immun Denies wheezing Physical exam (Primary Care) Vital Signs: Last Vital Signs Temp 97.5 F 04/21/24 08:42 Pulse 64 04/21/24 08:42 Resp 14 04/21/24 08:42 BP 130/60 04/21/24 08:42 Pulse Ox 97 04/21/24 08:42 Oxygen Delivery Method Room Air 04/21/24 08:42 BMI result Body Mass Index 28.7 Tobacco/Smoking Status: Tobacco use Status Tobacco use date assessed 07/17/23 04/21/24 08:43 Patient Tobacco Use Status Former Tobacco user 04/21/24 08:43 e-Cigarette/Vaping Use Never Used 04/21/24 08:43 PHQ-9: PHQ-9 Score PHQ-9: Total score 1 04/21/24 08:49 Thrive Assessment: Date of Thrive Assessment Date Thrive assessed 04/21/24 04/21/24 08:43 Const General: no acute distress and well developed Nutritional Appearance: well nourished Orientation/consciousness: patient oriented x3 HENMT Head: Yes normocephalic and Yes atraumatic Eyes General: appearance normal, both eyes and all related structures Pupils: Equal, round and reactive pupils present EOM: EOMs intact bilaterally Resp Effort & Inspection: normal respiratory effort Auscultation: clear to auscultation bilaterally Cardio Rate: regular rate Rhythm: regular rhythm Heart sounds: S1 normal heart sound present, S2 normal heart sound present, no gallops, no murmurs and no rubs Neuro General: patient oriented x3 and gait normal Cranial nerves: Yes Equal, round and reactive pupils present Psych Affect: normal affect Coding Level of Care Code Est Pt Level 4 (21675) Diagnoses Essential hypertension I10 Diabetes type 2, controlled E11.9 Diabetes mellitus complication detail: with chronic kidney disease Diabetes mellitus complication status: with kidney complications Diabetes mellitus usp insulin use: without carbon brusher assembler use Stage 3a chronic 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 Chronic kidney disease stage 3 subtype: stage 3a (GFR 45-59) Urinary urgency R39.15 Difficulty sleeping G47.9 Assessment & Plan Assessment & Plan (1) Essential hypertension: Code(s): I10 - Essential (primary) hypertension Category: Medical Plan: Blood?pressure?is?fairly?well?controlled.??Goal?is?less?than?130/80 Continue?current?medications (2) Diabetes type 2, controlled: Code(s): E11.9 - Type 2 diabetes mellitus without complications Category: Medical Qualifiers: Diabetes mellitus complication detail: with chronic kidney disease Diabetes mellitus complication status: with kidney complications Diabetes mellitus carbon brusher assembler insulin use: without carbon brusher assembler use Plan: A1c?6.3%?is?well?controlled .??Is?less?than?7% Continue?current?medication (3) CKD (chronic kidney disease) stage 3, GFR 30-59 ml/min: Code(s): N18.30 - Chronic kidney disease, stage 3 unspecified Category: Medical Qualifiers: Chronic kidney disease stage 3 subtype: stage 3a (GFR 45-59) Qualified Code(s): N18.31 - Chronic kidney disease, stage 3a Plan: Creatinine?level?has?decreased?and?he?is?hydrating?well. Follow-up?with?nephrology?as?recommended (4) Urinary urgency: Code(s): R39.15 - Urgency of urination Category: Medical Plan: Patient?notes?that?he?is?having?some?difficulty?with?urination?where?he?sometimes?only?urinates??a?thimble?full . Will?try?tamsulosin Follow-up?with?urology?as?recommended (5) Difficulty sleeping: Code(s): G47.9 - Sleep disorder, unspecified Category: Medical Plan: Patient?notes?that?he?wakes?up?after?only?a?couple?of?hours?of?sleep As?they?have?difficulty?sleeping for?months Referred?to?Sleep?Medicine Orders: Referrals Sleep Medicine Referral G47.30 - Sleep apnea, unspecified Medications: New tamsulosin 0.4 mg PO BEDTIME 30 caps 2RF 30 days
[2024-04-21 08:42] VITALS: BP 130/60; PULSE 64; RESP 14; TEMP 36.4; O2SAT 97; BMI 28.7
== END 2024-04-21 09:02 | disposition home or self-care (01) ==
PROVIDERS: PCP Family Medicine; Visit Provider Family Medicine
DX: I10 Essential (primary) hypertension (principal); E11.9 Type 2 diabetes mellitus without complications; N18.31 Chronic kidney disease, stage 3a; R39.15 Urgency of urination; G47.9 Sleep disorder, unspecified

== ENCOUNTER 2024-05-02 08:04 | Outpatient (AMB) | payer BC, SELFPAY ==
--- OUTSIDE RECORDS SUMMARY | 2024-05-02 08:24 | XMS_ITS | Continuity of Care Document ---
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) Active 05/07/19 19 Condition May 21, 2018 Entered By: MC DAN Comment: treated with finasteride [facility] Essential hypertension Active 05/07/19 09 Condition [facility] Hearing loss (SNOMED CT 39360970) Active 05/07/19 09 Condition [facility] HLD - Hyperlipidemia Active 05/07/19 09 Condition [facility] Hypothyroidism (SNOMED CT 45017967) Active 05/07/19 09 Condition [facility] [place] [facility] Diabetes Mellitus Type 2 (SCT 51239656) Active Condition Apr 17, 2024 Entered By: SKYLAR GREGORY Comment: vet under care of community PCP/ Dr Sheldon Muniz- good glycemic control [facility] History of actinic keratosis Active Condition Feb 08, 2024 Entered By: SKYLAR GREGORY Comment: see tele derm-lesions on right side of face/ vet needs cryotx per derm [facility] Low Back Pain (SCT 261402555) Active Condition Oct 26, 2021 Entered By: [...] Diagnosis: ICD-10-CM L57.0 Actinic keratosis Active Diagnosis [facility] Diagnosis: ICD-10-CM Z13.89 Encounter for screening for [...] aid Active Diagnosis [facility] [place] [facility] Medications Combined list of outpatient medications from [...] ORAL ACTIVE D'ALESSAN KERI MIRANDA G 2023 [facility] BUMETANIDE 1MG TAB TAKE ONE TABLET BY MOUTH ONCE DAILY ORAL ACTIVE D'ALESSAN RUBENKERI G 2023 [facility] CARBOXYMETH YLCELLULOSE NA 0.5% SOLN,OPH INSTILL 1 DROP INTO EACH EYE FOUR TIMES A DAY FOR DRY EYE OPHTHA LMIC ACTIVE 12/25/2024 [id number] SOSA,LAC EY J 2023 45 [facility] GLIPIZIDE 5MG TAB TAKE ONE-HALF TABLET BY MOUTH ORAL ACTIVE D'ALESSAN KERI MIRANDA G [facility] LEVOTHYROXI NE NA 125MCG TAB (SYNTHROID) TAKE ONE TABLET BY MOUTH QD ORAL ACTIVE D'ALESSAN KERI MIRANDA G 2023 [facility] LISINOPRIL 10MG TAB TAKE ONE TABLET BY MOUTH ONCE DAILY ORAL ACTIVE D'ALESSAN RUBENKERI CASAREZ G 2023 [facility] PRAVASTATIN NA 40MG TAB TAKE ONE TABLET BY MOUTH AT BEDTIME ORAL ACTIVE PRASHANT DAN 2009 [facility] [place] [facility] [facility] Immunizations Combined list of available immunizations from the Department of Defense and Veterans Affairs facilities. Immunization Series Date Given Administered By Site Reaction Lot Number CVX Code Drug Director Trust Status Comments Source INFLUENZA, UNSPECIFIED FORMULATION 2023 88 complet ed [facility] [place] [facility] INFLUENZA, UNSPECIFIED FORMULATION 2021 88 complet ed [facility] COVID-19 (MODERNA), MRNA, LNP-S, PF, 100 MCG OR 50 MCG DOSE 3 2020 207 complet ed MOD; [id number]; 2 [facility] COVID-19 (MODERNA), MRNA, LNP-S, PF, 100 MCG/0.5 ML DOSE 2 2020 207 complet ed MOD; [id number]; 1 [facility] COVID-19 (MODERNA), MRNA, LNP-S, PF, 100 MCG/0.5 ML DOSE 1 2020 207 complet ed MOD; [id number]; 1 [facility] [...] ed [facility] FLU,3 YRS (HISTORICAL) 2008 88 [facility] PNEUMOCOCCAL, UNSPECIFIED FORMULATION 2003 109 complet ed [facility] Results Combined list of recent chemistry, hematology [...] Aug 09, 2022 09:43 AM Reporting Lab: [facility] [address] [facility] [address] Performing Lab: [facility] [address] [facility] [address] [facility] HEMOGLOBI N A1C PANEL HEMOGLOBIN A1C/HEMOGLO [...] Aug 09, 2022 09:43 AM Reporting Lab: [facility] [address] [facility] [address] Performing Lab: [facility] [address] [facility] [address] [facility] BASIC METABOLIC PANEL (non-fast ing) UREA NITROGEN [MASS/VOLUM E] IN SERUM OR PLASMA 27 mg/dL 7 - 25 08/09 H Specimen Type: SERUM Comment: BUN Verified by repeat analysis. Ordering Provider: SKYLAR ARRIOLA Report Released Date/Time: Aug 09, 2022 09:43 AM Reporting Lab: [facility] [address] [address] Performing Lab: [facility] [address] [address] [facility] BASIC METABOLIC PANEL (non-fast ing) GLUCOSE [MASS/VOLUM E] IN SERUM OR PLASMA 126 mg/dL 65 - 100 08/09 H Specimen Type: SERUM Comment: BUN Verified by repeat analysis. Ordering Provider: SKYLAR ARRIOLA Report Released Date/Time: Aug 09, 2022 09:43 AM Reporting Lab: [facility] [address] [address] Performing Lab: [facility] [address] [address] [facility] BASIC METABOLIC PANEL (non-fast ing) SODIUM [MOLES/VOLU ME] IN SERUM OR PLASMA 142 mmol/L 135 - 145 08/09 Specimen Type: SERUM Comment: BUN Verified by repeat analysis. Ordering Provider: SKYLAR ARRIOLA Report Released Date/Time: Aug 09, 2022 09:43 AM Reporting Lab: [facility] [address] [address] Performing Lab: [facility] [address] [address] [facility] BASIC METABOLIC PANEL (non-fast ing) POTASSIUM [MOLES/VOLU ME] IN SERUM OR PLASMA 4.6 mmol/L 3.5 - 5.0 08/09 Specimen Type: SERUM Comment: BUN Verified by repeat analysis. Ordering Provider: SKYLAR ARRIOLA Report Released Date/Time: Aug 09, 2022 09:43 AM Reporting Lab: [facility] [address] [address] Performing Lab: [facility] [address] [facility] [address] [facility] BASIC METABOLIC PANEL (non-fast ing) CHLORIDE [MOLES/VOLU ME] IN SERUM OR PLASMA 105 mmol/L 100 - 110 08/09 Specimen Type: SERUM Comment: BUN Verified by repeat analysis. Ordering Provider: SKYLAR ARRIOLA Report Released Date/Time: Aug 09, 2022 09:43 AM Reporting Lab: [facility] [address] [address] Performing Lab: [address] [address] [facility] BASIC METABOLIC PANEL (non-fast ing) CARBON DIOXIDE, TOTAL [MOLES/VOLU ME] IN SERUM OR PLASMA 26 meq/L 20 - 30 08/09 Specimen Type: SERUM Comment: BUN Verified by repeat analysis. Ordering Provider: SKYLAR ARRIOLA Report Released Date/Time: Aug 09, 2022 09:43 AM Reporting Lab: [address] [address] Performing Lab: [address] [address] [facility] BASIC METABOLIC PANEL (non-fast ing) CREATININE [MASS/VOLUM E] IN SERUM OR PLASMA 1.92 mg/dL 0.50 - 1.40 08/09 H Specimen Type: SERUM Comment: BUN Verified by repeat analysis. Ordering Provider: SKYLAR ARRIOLA Report Released Date/Time: Aug 09, 2022 09:43 AM Reporting Lab: [facility] [address] [address] Performing Lab: [facility] [address] [address] [facility] BASIC METABOLIC PANEL (non-fast ing) GLOMERULAR FILTRATION RATE/1.73 SQ M.PREDICTED [VOLUME RATE/AREA] IN SERUM, PLASMA OR BLOOD BY CREATININE- BASED FORMULA (CKD-EPI) 33 mL/min 60 08/09 L Specimen Type: SERUM Comment: BUN Verified by repeat analysis. Ordering Provider: SKYLAR ARRIOLA Report Released Date/Time: Aug 09, 2022 09:43 AM Reporting Lab: [facility] [place] [address] [address] Performing Lab: [facility] [place] [address] [address] [facility] TSH THYROTROPIN [UNITS/VOLU ME] IN SERUM OR PLASMA 11.71 u[IU]/ mL 0.35 - 5.00 08/09 H Specimen Type: SERUM Comment: BUN Verified by repeat analysis. Ordering Provider: SKYLAR ARRIOLA Report Released Date/Time: Aug 09, 2022 09:43 AM Reporting Lab: [facility] [place] [address] [address] Performing Lab: [facility] [place] [address] [address] [facility] LIVER FUNCTION PROTEIN [MASS/VOLUM E] IN SERUM OR PLASMA 7.5 g/dL 6.0 - 8.3 08/09 Specimen Type: SERUM Comment: BUN Verified by repeat analysis. Ordering Provider: SKYLAR ARRIOLA Report Released Date/Time: Aug 09, 2022 09:43 AM Reporting Lab: [facility] [place] [address] [address] Performing Lab: [facility] [place] [address] [address] [facility] [place] [facility] LIVER FUNCTION ALBUMIN [MASS/VOLUM E] IN SERUM OR PLASMA 4.6 g/dL 3.5 - 5.0 08/09 Specimen Type: SERUM Comment: BUN Verified by repeat analysis. Ordering Provider: SKYLAR ARRIOLA Report Released Date/Time: Aug 09, 2022 09:43 AM Reporting Lab: [facility] [place] [address] [address] Performing Lab: [facility] [place] [facility] [address] [facility] [address] [facility] [place] [facility] LIVER FUNCTION ALKALINE PHOSPHATASE [ENZYMATIC ACTIVITY/VO LUME] IN SERUM OR PLASMA 87 U/L 40 - 150 08/09 Specimen Type: SERUM Comment: BUN Verified by repeat analysis. Ordering Provider: SKYLAR ARRIOLA Report Released Date/Time: Aug 09, 2022 09:43 AM Reporting Lab: [facility] [place] [facility] [address] [facility] [address] Performing Lab: [facility] [place] [address] [address] [facility] [place] [facility] LIVER FUNCTION ASPARTATE AMINOTRANSF ERASE [ENZYMATIC ACTIVITY/VO LUME] IN SERUM OR PLASMA 34 U/L 5 - 34 08/09 Specimen Type: SERUM Comment: BUN Verified by repeat analysis. Ordering Provider: SKYLAR ARRIOLA Report Released Date/Time: Aug 09, 2022 09:43 AM Reporting Lab: [facility] [place] [address] [address] Performing Lab: [facility] [place] [address] [address] [facility] [place] [facility] LIVER FUNCTION ALANINE AMINOTRANSF ERASE [ENZYMATIC ACTIVITY/VO LUME] IN SERUM OR PLASMA 35 U/L 6 - 55 08/09 Specimen Type: SERUM Comment: BUN Verified by repeat analysis. Ordering Provider: SKYLAR ARRIOLA Report Released Date/Time: Aug 09, 2022 09:43 AM Reporting Lab: [facility] [place] [address] [address] Performing Lab: [facility] [place] [address] [address] [facility] [place] [facility] LIVER FUNCTION BILIRUBIN.T OTAL [MASS/VOLUM E] IN SERUM OR PLASMA 0.6 mg/dL 0.2 - 1.2 08/09 Specimen Type: SERUM Comment: BUN Verified by repeat analysis. Ordering Provider: SKYLAR ARRIOLA Report Released Date/Time: Aug 09, 2022 09:43 AM Reporting Lab: [facility] [place] [address] [address] Performing Lab: [facility] [place] [address] [address] [facility] [place] [facility] CBC AND DIFF (AUTO) LEUKOCYTES [#/VOLUME] IN BLOOD BY AUTOMATED COUNT 9.01 10*3/u L 4.50 - 11.00 08/09 Specimen Type: BLOOD No comment entered. Ordering Provider: SKYLAR ARRIOLA Report Released Date/Time: Aug 09, 2022 09:43 AM Reporting Lab: [facility] [place] [address] [address] Performing Lab: [facility] [place] [address] [address] [facility] [place] [facility] CBC AND DIFF (AUTO) ERYTHROCYTE S [#/VOLUME] IN BLOOD BY AUTOMATED COUNT 3.97 10*6/u L 4.23 - 5.66 08/09 L Specimen Type: BLOOD No comment entered. Ordering Provider: SKYLAR ARRIOLA Report Released Date/Time: Aug 09, 2022 09:43 AM Reporting Lab: [facility] [place] [address] [address] Performing Lab: [facility] [place] [address] [address] [facility] [place] [facility] CBC AND DIFF (AUTO) HEMOGLOBIN [MASS/VOLUM E] IN BLOOD 14.1 g/dL 12.8 - 17 08/09 Specimen Type: BLOOD No comment entered. Ordering Provider: SKYLAR ARRIOLA Report Released Date/Time: Aug 09, 2022 09:43 AM Reporting Lab: [facility] [place] [address] [address] Performing Lab: [facility] [place] [address] [address] [facility] [place] [facility] CBC AND DIFF (AUTO) HEMATOCRIT [VOLUME FRACTION] OF BLOOD BY AUTOMATED COUNT 41.5 39.2 - 50.4 08/09 Specimen Type: BLOOD No comment entered. Ordering Provider: SKYLAR ARRIOLA Report Released Date/Time: Aug 09, 2022 09:43 AM Reporting Lab: [facility] [place] [facility] [address] [facility] [address] Performing Lab: [facility] [place] [facility] [address] [facility] [address] [facility] [place] [facility] CBC AND DIFF (AUTO) MCV [ENTITIC VOLUME] BY AUTOMATED COUNT 104.5 fL 82 - 99 08/09 H Specimen Type: BLOOD No comment entered. Ordering Provider: SKYLAR ARRIOLA Report Released Date/Time: Aug 09, 2022 09:43 AM Reporting Lab: [facility] [place] [address] [address] Performing Lab: [facility] [place] [address] [address] [facility] CBC AND DIFF (AUTO) MCHC [MASS/VOLUM E] BY AUTOMATED COUNT 34.0 g/dL 30.8 - 35.1 08/09 Specimen Type: BLOOD No comment entered. Ordering Provider: SKYLAR ARRIOLA Report Released Date/Time: Aug 09, 2022 09:43 AM Reporting Lab: [facility] [place] [address] [address] Performing Lab: [facility] [place] [address] [address] [facility] [place] [facility] CBC AND DIFF (AUTO) PLATELETS [#/VOLUME] IN BLOOD BY AUTOMATED COUNT 174 10*3/u L 140 - 360 08/09 Specimen Type: BLOOD No comment entered. Ordering Provider: SKYLAR ARRIOLA Report Released Date/Time: Aug 09, 2022 09:43 AM Reporting Lab: [facility] [place] [facility] [address] [facility] [address] Performing Lab: [facility] [place] [facility] [address] [facility] [address] [facility] CBC AND DIFF (AUTO) ERYTHROCYTE DISTRIBUTIO N WIDTH [RATIO] BY AUTOMATED COUNT 13.2 12.0 - 16.0 08/09 Specimen Type: BLOOD No comment entered. Ordering Provider: SKYLAR ARRIOLA Report Released Date/Time: Aug 09, 2022 09:43 AM Reporting Lab: [facility] [place] [facility] [address] [facility] [address] Performing Lab: [facility] [place] [facility] [address] [facility] [address] [facility] CBC AND DIFF (AUTO) MONOCYTES [#/VOLUME] IN BLOOD BY AUTOMATED COUNT 0.55 10*3/u L 0.30 - 1.10 08/09 Specimen Type: BLOOD No comment entered. Ordering Provider: SKYLAR ARRIOLA Report Released Date/Time: Aug 09, 2022 09:43 AM Reporting Lab: [facility] [place] [facility] [address] [facility] [address] Performing Lab: [facility] [place] [facility] [address] [facility] [address] [facility] CBC AND DIFF (AUTO) MCH [ENTITIC MASS] BY AUTOMATED COUNT 35.5 pg 26.2 - 32.6 08/09 H Specimen Type: BLOOD No comment entered. Ordering Provider: SKYLAR ARRIOLA Report Released Date/Time: Aug 09, 2022 09:43 AM Reporting Lab: [facility] [place] [facility] [address] [facility] [address] Performing Lab: [facility] [place] [facility] [address] [facility] [address] [facility] CBC AND DIFF (AUTO) NEUTROPHILS /100 LEUKOCYTES IN BLOOD BY AUTOMATED COUNT 73.2 43.7 - 75.8 08/09 Specimen Type: BLOOD No comment entered. Ordering Provider: SKYLAR ARRIOLA Report Released Date/Time: Aug 09, 2022 09:43 AM Reporting Lab: [facility] [address] [facility] [address] Performing Lab: [facility] [address] [facility] [address] [facility] CBC AND DIFF (AUTO) LYMPHOCYTES /100 LEUKOCYTES IN BLOOD BY AUTOMATED COUNT 17.9 14.0 - 42.3 08/09 Specimen Type: BLOOD No comment entered. Ordering Provider: SKYLAR ARRIOLA Report Released Date/Time: Aug 09, 2022 09:43 AM Reporting Lab: [facility] [address] [facility] [address] Performing Lab: [facility] [address] [facility] [address] [facility] [place] [facility] CBC AND DIFF (AUTO) MONOCYTES/1 00 LEUKOCYTES IN BLOOD BY AUTOMATED COUNT 6.1 5.1 - 13.7 08/09 Specimen Type: BLOOD No comment entered. Ordering Provider: SKYLAR ARRIOLA Report Released Date/Time: Aug 09, 2022 09:43 AM Reporting Lab: [facility] [address] [facility] [address] Performing Lab: [facility] [address] [facility] [address] [facility] CBC AND DIFF (AUTO) EOSINOPHILS /100 LEUKOCYTES IN BLOOD BY AUTOMATED COUNT 2.0 0.4 - 6.8 08/09 Specimen Type: BLOOD No comment entered. Ordering Provider: SKYLAR ARRIOLA Report Released Date/Time: Aug 09, 2022 09:43 AM Reporting Lab: [facility] [address] [facility] [address] Performing Lab: [facility] [address] [facility] [address] [facility] [place] [facility] CBC AND DIFF (AUTO) BASOPHILS/1 00 LEUKOCYTES IN BLOOD BY AUTOMATED COUNT 0.6 0.1 - 2.0 08/09 Specimen Type: BLOOD No comment entered. Ordering Provider: SKYLAR ARRIOLA Report Released Date/Time: Aug 09, 2022 09:43 AM Reporting Lab: [facility] [place] [address] [address] Performing Lab: [facility] [place] [address] [address] [facility] [place] [facility] CBC AND DIFF (AUTO) NEUTROPHILS [#/VOLUME] IN BLOOD BY AUTOMATED COUNT 6.60 10*3/u L 2.20 - 7.60 08/09 Specimen Type: BLOOD No comment entered. Ordering Provider: SKYLAR ARRIOLA Report Released Date/Time: Aug 09, 2022 09:43 AM Reporting Lab: [facility] [place] [address] [address] Performing Lab: [facility] [place] [address] [address] [facility] [place] [facility] CBC AND DIFF (AUTO) LYMPHOCYTES [#/VOLUME] IN BLOOD BY AUTOMATED COUNT 1.61 10*3/u L 1.00 - 3.20 08/09 Specimen Type: BLOOD No comment entered. Ordering Provider: SKYLAR ARRIOLA Report Released Date/Time: Aug 09, 2022 09:43 AM Reporting Lab: [facility] [place] [facility] [address] [facility] [address] Performing Lab: [facility] [place] [address] [address] [facility] [place] [facility] CBC AND DIFF (AUTO) EOSINOPHILS [#/VOLUME] IN BLOOD BY AUTOMATED COUNT 0.18 10*3/u L 0.03 - 0.44 08/09 Specimen Type: BLOOD No comment entered. Ordering Provider: SKYLAR ARRIOLA Report Released Date/Time: Aug 09, 2022 09:43 AM Reporting Lab: [facility] [place] [facility] [address] [facility] [address] Performing Lab: [facility] [place] [facility] [address] [facility] [address] [facility] [place] [facility] CBC AND DIFF (AUTO) BASOPHILS [#/VOLUME] IN BLOOD BY AUTOMATED COUNT 0.05 10*3/u L 0.01 - 0.13 08/09 Specimen Type: BLOOD No comment entered. Ordering Provider: SKYLAR ARRIOLA Report Released Date/Time: Aug 09, 2022 09:43 AM Reporting Lab: [facility] [place] [facility] [address] [facility] [address] Performing Lab: [facility] [place] [facility] [address] [facility] [address] [facility] [place] [facility] CBC AND DIFF (AUTO) IMMATURE GRANULOCYTE S/100 LEUKOCYTES IN BLOOD BY AUTOMATED COUNT 0.2 0.0 - 0.7 08/09 Specimen Type: BLOOD No comment entered. Ordering Provider: SKYLAR ARRIOLA Report Released Date/Time: Aug 09, 2022 09:43 AM Reporting Lab: [facility] [place] [facility] [address] [facility] [address] Performing Lab: [facility] [place] [facility] [address] [facility] [address] [facility] [place] [facility] CBC AND DIFF (AUTO) IMMATURE GRANULOCYTE S [#/VOLUME] IN BLOOD 0.02 10*3/u L 0.00 - 0.06 08/09 Specimen Type: BLOOD No comment entered. 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, left eye<br/ > SOSACHEStanford Júnior Bailey 12/18 [facility] En[facility] [id number] 12/21 [facility] FIT SPECTACLES MONOFOCAL [id number] Diagnos is: ICD-10- CM Z46.0 Encount er for fit/adj st of spectac les and contact lenses< br/> MARIANNA GIBSON 12/21 [facility] OFFICE O/P EST SF 10-19 MIN [id number] Diagnos is: ICD-10- CM E11.9 Type 2 diabete s mellitu s without complic ations< br/> Juan A MACHUCA 01/09 [facility] Out[facility] Encounter [id number] 01/10 [facility] HEARING AID REPAIR/MOD IFYING [id number] Diagnos is: ICD-10- CM Z46.1 Encount er for fitting and adjustm ent of hearing aid<br/ > Huey PEREZ 01/16 [facility] REPAIR & ADJUST SPECTACLES [id number] Diagnos is: ICD-10- CM Z46.0 Encount er for fit/adj st of spectac les and contact lenses< br/> MARYLOU URIAS 01/19 [facility] En[facility] [id number] 02/20 [facility] En[facility] [id number] 04/23 [facility] OFFICE O/P EST LOW 20-29 MIN [id number] Diagnos is: ICD-10- CM E11.22 Type 2 diabete s mellitu s w diabeti c chronic kidney disease
SKYLAR LEMUS 05/03 [facility] HEARING AID REPAIR/MOD IFYING [id number] Diagnos is: ICD-10- CM H90.3 Sensori neural hearing loss, bilater al
SENIOR,JOHNSON OLE L 05/24 [facility] Out[facility] En[facility] [id number] 06/01 [facility] OFF[facility] O/P EST SF 10 MIN [id number] Diagnos is: ICD-10- CM E11.9 Type 2 diabete s mellitu s without complic ations< br/> Juan A MACHUCA 06/06 [facility] En[facility] [id number] 09/24 [facility] Encounter [id number] 09/24 [facility] [id number] 10/22 [facility] [id number] Diagnos is: ICD-10- CM S46.911 A Strain unsp musc/fa sc/tend at shldr/u p arm, right arm, init
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
PICH,TOOTIE H 01/21 [facility] UNLISTED SPEC DERM SVC/PX [id number] 1. Diagnos is: ICD-10- CM Z13.89 Encount er for screeni ng for other disorde r
DARCIE HAIR ICA A 02/06 [facility] TRIM NAIL(S) 81195-6.63 1. Diagnos is: ICD-10- CM E11.9 Type 2 diabete s mellitu s without complic ations< br/> VICENTE MANZANO GAMALIEL 02/06 [facility] Outpatient Encounter [id number] Diagnos is: ICD-10- CM L57.0 Actinic keratos is
MARY ARIAS PH J 02/07 [facility] Outpatient Encounter [id number] 02/07 [facility] Outpatient Encounter [id number] 02/10 [facility] OFFICE O/P EST MOD 30 MIN [id number] Diagnos is: ICD-10- CM E11.9 Type 2 diabete s mellitu s without complic ations< br/> SKYLAR LEMUS 04/17 [facility] Social History Combined list of available smoking, tobacco, and other social history from Department of Defense and Veterans Affairs facilities. Social History Type Response Date Comment Source Tobacco smoking status [facility] VA-TOBACCO USE FORMER CIGARETTES [facility] of tobacco use VA-TOBACCO NEVER USED 05/21/2018 [facility] History of tobacco use QUIT TOBACCO USE > 7 YEARS AGO 05/09/2017 quit 35 yrs ago [facility] History of tobacco use LIFETIME NON-TOBACCO USER 05/09/2016 [facility] History of tobacco use QUIT TOBACCO USE > 7 YEARS AGO 05/06/2015 pt states he stopped smoking 20 yrs ago [facility] History of tobacco use QUIT TOBACCO USE > 7 YEARS AGO 04/05/2009 QUIT 15 YEARS AGO [facility] Plan of Care List of future care activities from Department of [facility] Affairs facilities. Additional future care activities may be listed in the Assessment and Plan section. Date/Time Care Activity Care Activity Detail Facili ty 06/09/2024 AMBULATORY - MEDICINE AMBULATORY - MEDICI NE [facility] 09/23/2024 AMBULATORY - MEDICINE AMBULATORY - MEDICI NE [facility]
[2024-05-02 08:29] LABS: Prothrombin Time Whole Bld POC 41.1 sec (11.1-13.5); ~PT, ~INR - Anti Coag Clinic 3.4 (0.9-1.1)
--- NOTE | 2024-05-02 08:38 | MHC.OFFVISCO ---
Intake Intake Visit Reasons: Anticoagulation Allergies hydralazine [Hydralazine] Allergy (Unknown, Verified 05/02/24 08:18) SEVERE HEADACHE Medication List - Last Reconciled 05/02/24 by Elisa Jon RN amlodipine 5 mg PO DAILY ascorbic acid (vitamin C) PO DAILY blood sugar diagnostic As directed blood sugar diagnostic (OneTouch Ultra Test strips) 1 strip miscellaneous BID 1 month bumetanide 1 mg PO Q OTHER DAY 90 days glipizide ER 2.5 mg PO DAILY 90 days lancets One Touch Ultra Test Strips As directed to test blood sugar twice a day. Ninety day supply lancets (OneTouch UltraSoft 2 Lancet) As directed levothyroxine 125 mcg PO DAILY lisinopril 5 mg PO DAILY 90 days multivitamin (Daily Multi-Vitamin) PO pravastatin 40 mg PO DAILY tamsulosin 0.4 mg PO BEDTIME 30 days warfarin 4 mg See Protocol PO DAILY Nursing Note INR: 3.4 ALMOST therapeutic range - DID NOT HAVE ENOUGH GREENS, HAD GUO PIE Medications and supplements reviewed No changes in health, medications, or supplements, Denies any signs and symptoms of bleeding or bruising or clotting. Bleeding, bruising, clotting discussed Nutritional guidance given - GREENS TODAY AND WEEKLY Dose: KEEP SAME 2MG X 1 DAY/ 4MG X 6 DAYS F/U INR: 2 WEEKS Patient verbalizes understanding of instructions given Anti-Coag Initial Assessment Social Hx Patient Tobacco Use Status: Former Tobacco user alcohol intake: former Alcohol intake frequency: does not drink Coding Level of Care Code Est Patient Level 1 Diagnoses Current use of anticoagulant therapy Z79.01 Results AMB INR Fingerstick AMB INR Fingerstick 3.4 Last Edit by Elisa Jon RN on 05/02/24 08:32 manual entry Assessment & Plan Assessment & Plan (1) Current use of anticoagulant therapy: Comment: critical high INR Code(s): Z79.01 - bed placement coordinator (current) use of 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
== END 2024-05-02 08:41 | disposition home or self-care (01) ==
LOC: HO.ACS 08:04
PROVIDERS: PCP Family Medicine; Visit Provider Internal Medicine
DX: Z79.01 Long term (current) use of anticoagulants (principal)

== ENCOUNTER → 2024-05-02 08:04 | Outpatient (BNVA) | payer BC, SELFPAY | PROVIDERS: PCP Family Medicine; Visit Provider Internal Medicine | DX: I48.0 Paroxysmal atrial fibrillation (principal); Z79.01 Long term (current) use of anticoagulants; Z51.81 Encounter for therapeutic drug level monitoring | CPT/HCPCS: 85610; 99211 ==

== ENCOUNTER 2024-05-14 08:44 | Outpatient (REF) | payer BC, SELFPAY ==
--- NOTE | ~2024-05-14 | XR_ITS ---
CLINICAL HISTORY: M54.9 - Dorsalgia, unspecified 3 views lumbar spine Comparison: None Findings: Normal vertebral body alignment. No acute fractures or dislocation. Multilevel disc space narrowing and endplate osteophyte formation, as well as facet hypertrophy. Arterial vascular calcifications are present. IMPRESSION: No acute findings. This document has been electronically signed by: Stephen Whitfield MD on 05/14/2024 17:44:51
--- NOTE | ~2024-05-14 | XR_ITS ---
CLINICAL HISTORY: R09.89 - Other specified symptoms and signs involving the circulatory an... 2 view chest x-ray Comparison: None Findings: No consolidation or effusion. Heart size is normal. No acute fracture. IMPRESSION: 1. No acute findings. This document has been electronically signed by: Stephen Whitfield MD on 05/14/2024 17:45:51
--- OUTSIDE RECORDS SUMMARY | 2024-05-14 09:24 | XMS_ITS | Continuity of Care Document ---
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) Active 05/07/19 19 Condition May 21, 2018 Entered By: MC DAN Comment: treated with finasteride [facility] Essential hypertension Active 05/07/19 09 Condition [facility] Hearing loss (SNOMED CT 42640171) Active 05/07/19 09 Condition [facility] HLD - Hyperlipidemia Active 05/07/19 09 Condition [facility] Hypothyroidism (SNOMED CT 70126084) Active 05/07/19 09 Condition [facility] [place] [facility] Diabetes Mellitus Type 2 (SCT 09291506) Active Condition Apr 17, 2024 Entered By: SKYLAR GREGORY Comment: vet under care of community PCP/ Dr Sheldon Muniz- good glycemic control [facility] History of actinic keratosis Active Condition Feb 08, 2024 Entered By: SKYLAR GREGORY Comment: see tele derm-lesions on right side of face/ vet needs cryotx per derm [facility] Low Back Pain (SCT 387166870) Active Condition Oct 26, 2021 Entered By: [...] Diagnosis: ICD-10-CM L57.0 Actinic keratosis Active Diagnosis [facility] Diagnosis: ICD-10-CM Z13.89 Encounter for screening [...] Active Diagnosis [facility] [place] [facility] Medications Combined list of outpatient [...] ORAL ACTIVE D'ALESSAN KERI MIRANDA G 2023 [facility] BUMETANIDE 1MG TAB TAKE ONE TABLET BY MOUTH ONCE DAILY ORAL ACTIVE D'ALESSAN RUBENKERI G 2023 [facility] CARBOXYMETH YLCELLULOSE NA 0.5% SOLN,OPH INSTILL 1 DROP INTO EACH EYE FOUR TIMES A DAY FOR DRY EYE OPHTHA LMIC ACTIVE 12/25/2024 [id number] 4 SOSA,LAC EY J 2023 45 [facility] GLIPIZIDE 5MG TAB TAKE ONE-HALF TABLET BY MOUTH ORAL ACTIVE D'ALESSAN KERI MIRANDA G 2023 [facility] LEVOTHYROXI NE NA 125MCG TAB (SYNTHROID) TAKE ONE TABLET BY MOUTH QD ORAL ACTIVE D'ALESSAN KERI MIRANDA G 2023 [facility] LISINOPRIL 10MG TAB TAKE ONE TABLET BY MOUTH ONCE DAILY ORAL ACTIVE D'ALESSAN RUBENKERI CASAREZ G 2023 [facility] PRAVASTATIN NA 40MG TAB TAKE ONE TABLET BY MOUTH AT BEDTIME ORAL ACTIVE PRASHANT DAN 2009 [facility] [place] [facility] Immunizations Combined list of available immunizations from the Department of Defense and Veterans Affairs facilities. 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 Status Comments Source INFLUENZA, UNSPECIFIED FORMULATION 2023 88 complet ed [facility] [place] [facility] INFLUENZA, UNSPECIFIED FORMULATION 2021 88 complet ed [facility] COVID-19 (MODERNA), MRNA, LNP-S, PF, 100 MCG OR 50 MCG DOSE 3 2020 207 complet ed MOD; [id number]; 2 [facility] COVID-19 (MODERNA), MRNA, LNP-S, PF, 100 MCG/0.5 ML DOSE 2 2020 207 complet ed MOD; [id number]; 1 [facility] COVID-19 (MODERNA), MRNA, LNP-S, PF, 100 MCG/0.5 ML DOSE 1 2020 207 complet ed MOD; [id number]; 1 [facility] [...] ed [facility] FLU,3 YRS (HISTORICAL) 2008 [facility] PNEUMOCOCCAL, UNSPECIFIED FORMULATION 2003 109 complet ed [facility] [place] [facility] Results Combined list of recent [...] Aug 09, 2022 09:43 AM Reporting Lab: [address] [address] Performing Lab: [address] [address] [facility] BASIC METABOLIC PANEL (non-fast ing) GLUCOSE [MASS/VOLUM E] IN SERUM OR PLASMA 126 mg/dL 65 - 100 08/09 H Specimen Type: SERUM Comment: BUN Verified by repeat analysis. Ordering Provider: SKYLAR ARRIOLA Report Released Date/Time: Aug 09, 2022 09:43 AM Reporting Lab: [address] [address] Performing Lab: [address] [address] [facility] BASIC METABOLIC PANEL (non-fast ing) SODIUM [MOLES/VOLU ME] IN SERUM OR PLASMA 142 mmol/L 135 - 145 08/09 Specimen Type: SERUM Comment: BUN Verified by repeat analysis. Ordering Provider: SKYLAR ARRIOLA Report Released Date/Time: Aug 09, 2022 09:43 AM Reporting Lab: [address] [address] Performing Lab: [facility] [address] [facility] [address] [facility] BASIC METABOLIC PANEL (non-fast ing) POTASSIUM [MOLES/VOLU ME] IN SERUM OR PLASMA 4.6 mmol/L 3.5 - 5.0 08/09 Specimen Type: SERUM Comment: BUN Verified by repeat analysis. Ordering Provider: SKYLAR ARRIOLA Report Released Date/Time: Aug 09, 2022 09:43 AM Reporting Lab: [facility] [address] [address] Performing Lab: [facility] [address] [address] [facility] BASIC METABOLIC PANEL (non-fast ing) CHLORIDE [MOLES/VOLU ME] IN SERUM OR PLASMA 105 mmol/L 100 - 110 08/09 Specimen Type: SERUM Comment: BUN Verified by repeat analysis. Ordering Provider: SKYLAR ARRIOLA Report Released Date/Time: Aug 09, 2022 09:43 AM Reporting Lab: [address] [address] Performing Lab: [address] [address] [facility] BASIC METABOLIC PANEL (non-fast ing) CARBON DIOXIDE, TOTAL [MOLES/VOLU ME] IN SERUM OR PLASMA 26 meq/L 20 - 30 08/09 Specimen Type: SERUM Comment: BUN Verified by repeat analysis. Ordering Provider: SKYLAR ARRIOLA Report Released Date/Time: Aug 09, 2022 09:43 AM Reporting Lab: [facility] [address] [address] Performing Lab: [facility] [address] [address] [facility] BASIC METABOLIC PANEL (non-fast ing) CREATININE [MASS/VOLUM E] IN SERUM OR PLASMA 1.92 mg/dL 0.50 - 1.40 08/09 H Specimen Type: SERUM Comment: BUN Verified by repeat analysis. Ordering Provider: SKYLAR ARRIOLA Report Released Date/Time: Aug 09, 2022 09:43 AM Reporting Lab: [facility] [place] [address] [address] Performing Lab: [facility] [place] [address] [address] [facility] [place] [facility] BASIC METABOLIC PANEL (non-fast ing) GLOMERULAR FILTRATION RATE/1.73 SQ M.PREDICTED [VOLUME RATE/AREA] IN SERUM, PLASMA OR BLOOD BY CREATININE- BASED FORMULA (CKD-EPI) 33 mL/min 60 08/09 L Specimen Type: SERUM Comment: BUN Verified by repeat analysis. Ordering Provider: SKYLAR ARRIOLA Report Released Date/Time: Aug 09, 2022 09:43 AM Reporting Lab: [facility] [place] [address] [address] Performing Lab: [facility] [place] [address] [address] [facility] [place] [facility] CBC AND DIFF (AUTO) LEUKOCYTES [#/VOLUME] IN BLOOD BY AUTOMATED COUNT 9.01 10*3/u L 4.50 - 11.00 08/09 Specimen Type: BLOOD No comment entered. Ordering Provider: SKYLAR ARRIOLA Report Released Date/Time: Aug 09, 2022 09:43 AM Reporting Lab: [facility] [place] [address] [address] Performing Lab: [facility] [place] [address] [address] [facility] [place] [facility] CBC AND DIFF (AUTO) ERYTHROCYTE S [#/VOLUME] IN BLOOD BY AUTOMATED COUNT 3.97 10*6/u L 4.23 - 5.66 08/09 L Specimen Type: BLOOD No comment entered. Ordering Provider: SKYLAR ARRIOLA Report Released Date/Time: Aug 09, 2022 09:43 AM Reporting Lab: [facility] [place] [facility] [address] [facility] [address] Performing Lab: [facility] [place] [facility] [address] [facility] [address] [facility] [place] [facility] CBC AND DIFF (AUTO) HEMOGLOBIN [MASS/VOLUM E] IN BLOOD 14.1 g/dL 12.8 - 17 08/09 Specimen Type: BLOOD No comment entered. Ordering Provider: SKYLAR ARRIOLA Report Released Date/Time: Aug 09, 2022 09:43 AM Reporting Lab: [facility] [place] [facility] [address] [facility] [address] Performing Lab: [facility] [place] [facility] [address] [facility] [address] [facility] [place] [facility] CBC AND DIFF (AUTO) HEMATOCRIT [VOLUME FRACTION] OF BLOOD BY AUTOMATED COUNT 41.5 39.2 - 50.4 08/09 Specimen Type: BLOOD No comment entered. Ordering Provider: SKYLAR ARRIOLA Report Released Date/Time: Aug 09, 2022 09:43 AM Reporting Lab: [facility] [place] [facility] [address] [facility] [address] Performing Lab: [facility] [place] [facility] [address] [facility] [address] [facility] [place] [facility] CBC AND DIFF (AUTO) MCV [ENTITIC VOLUME] BY AUTOMATED COUNT 104.5 fL 82 - 99 08/09 H Specimen Type: BLOOD No comment entered. Ordering Provider: SKYLAR ARRIOLA Report Released Date/Time: Aug 09, 2022 09:43 AM Reporting Lab: [facility] [place] [facility] [address] [facility] [address] Performing Lab: [facility] [place] [facility] [address] [facility] [address] [facility] [place] [facility] CBC AND DIFF (AUTO) MCHC [MASS/VOLUM E] BY AUTOMATED COUNT 34.0 g/dL 30.8 - 35.1 08/09 Specimen Type: BLOOD No comment entered. Ordering Provider: SKYLAR ARRIOLA Report Released Date/Time: Aug 09, 2022 09:43 AM Reporting Lab: [facility] [address] [facility] [address] Performing Lab: [facility] [address] [facility] [address] [facility] CBC AND DIFF (AUTO) PLATELETS [#/VOLUME] IN BLOOD BY AUTOMATED COUNT 174 10*3/u L 140 - 360 08/09 Specimen Type: BLOOD No comment entered. Ordering Provider: SKYLAR ARRIOLA Report Released Date/Time: Aug 09, 2022 09:43 AM Reporting Lab: [facility] [place] [facility] [address] [facility] [address] Performing Lab: [facility] [place] [address] [address] [facility] CBC AND DIFF (AUTO) ERYTHROCYTE DISTRIBUTIO N WIDTH [RATIO] BY AUTOMATED COUNT 13.2 12.0 - 16.0 08/09 Specimen Type: BLOOD No comment entered. Ordering Provider: SKYLAR ARRIOLA Report Released Date/Time: Aug 09, 2022 09:43 AM Reporting Lab: [facility] [place] [facility] [address] [facility] [address] Performing Lab: [facility] [place] [facility] [address] [facility] [address] [facility] CBC AND DIFF (AUTO) MONOCYTES [#/VOLUME] IN BLOOD BY AUTOMATED COUNT 0.55 10*3/u L 0.30 - 1.10 08/09 Specimen Type: BLOOD No comment entered. Ordering Provider: SKYLAR ARRIOLA Report Released Date/Time: Aug 09, 2022 09:43 AM Reporting Lab: [facility] [place] [facility] [address] [facility] [address] Performing Lab: [facility] [address] [place] [address] [facility] CBC AND DIFF (AUTO) MCH [ENTITIC MASS] BY AUTOMATED COUNT 35.5 pg 26.2 - 32.6 08/09 H Specimen Type: BLOOD No comment entered. Ordering Provider: SKYLAR ARRIOLA Report Released Date/Time: Aug 09, 2022 09:43 AM Reporting Lab: [facility] [place] [address] [address] Performing Lab: [facility] [place] [facility] [address] [facility] [address] [facility] CBC AND DIFF (AUTO) NEUTROPHILS /100 LEUKOCYTES IN BLOOD BY AUTOMATED COUNT 73.2 43.7 - 75.8 08/09 Specimen Type: BLOOD No comment entered. Ordering Provider: SKYLAR ARRIOLA Report Released Date/Time: Aug 09, 2022 09:43 AM Reporting Lab: [facility] [place] [address] [address] Performing Lab: [facility] [place] [address] [address] [facility] CBC AND DIFF (AUTO) LYMPHOCYTES /100 LEUKOCYTES IN BLOOD BY AUTOMATED COUNT 17.9 14.0 - 42.3 08/09 Specimen Type: BLOOD No comment entered. Ordering Provider: SKYLAR ARRIOLA Report Released Date/Time: Aug 09, 2022 09:43 AM Reporting Lab: [facility] [place] [address] [address] Performing Lab: [facility] [place] [address] [address] [facility] CBC AND DIFF (AUTO) MONOCYTES/1 00 LEUKOCYTES IN BLOOD BY AUTOMATED COUNT 6.1 5.1 - 13.7 08/09 Specimen Type: BLOOD No comment entered. Ordering Provider: SKYLAR ARRIOLA Report Released Date/Time: Aug 09, 2022 09:43 AM Reporting Lab: [facility] [place] [address] [address] Performing Lab: [facility] [place] [facility] [address] [facility] [address] [facility] [place] [facility] CBC AND DIFF (AUTO) EOSINOPHILS /100 LEUKOCYTES IN BLOOD BY AUTOMATED COUNT 2.0 0.4 - 6.8 08/09 Specimen Type: BLOOD No comment entered. Ordering Provider: SKYLAR ARRIOLA Report Released Date/Time: Aug 09, 2022 09:43 AM Reporting Lab: [facility] [place] [facility] [address] [facility] [address] Performing Lab: [facility] [place] [facility] [address] [facility] [address] [facility] [place] [facility] CBC AND DIFF (AUTO) BASOPHILS/1 00 LEUKOCYTES IN BLOOD BY AUTOMATED COUNT 0.6 0.1 - 2.0 08/09 Specimen Type: BLOOD No comment entered. Ordering Provider: SKYLAR ARRIOLA Report Released Date/Time: Aug 09, 2022 09:43 AM Reporting Lab: [facility] [place] [facility] [address] [facility] [address] Performing Lab: [facility] [place] [facility] [address] [facility] [address] [facility] [place] [facility] CBC AND DIFF (AUTO) NEUTROPHILS [#/VOLUME] IN BLOOD BY AUTOMATED COUNT 6.60 10*3/u L 2.20 - 7.60 08/09 Specimen Type: BLOOD No comment entered. Ordering Provider: SKYLAR ARRIOLA Report Released Date/Time: Aug 09, 2022 09:43 AM Reporting Lab: [facility] [place] [facility] [address] [facility] [address] Performing Lab: [facility] [place] [address] [address] [facility] CBC AND DIFF (AUTO) LYMPHOCYTES [#/VOLUME] IN BLOOD BY AUTOMATED COUNT 1.61 10*3/u L 1.00 - 3.20 08/09 Specimen Type: BLOOD No comment entered. Ordering Provider: SKYLAR ARRIOLA Report Released Date/Time: Aug 09, 2022 09:43 AM Reporting Lab: [facility] [address] [facility] [address] Performing Lab: [facility] [address] [facility] [address] [facility] CBC AND DIFF (AUTO) EOSINOPHILS [#/VOLUME] IN BLOOD BY AUTOMATED COUNT 0.18 10*3/u L 0.03 - 0.44 08/09 Specimen Type: BLOOD No comment entered. Ordering Provider: SKYLAR ARRIOLA Report Released Date/Time: Aug 09, 2022 09:43 AM Reporting Lab: [facility] [place] [address] [address] Performing Lab: [facility] [place] [address] [address] [facility] CBC AND DIFF (AUTO) BASOPHILS [#/VOLUME] IN BLOOD BY AUTOMATED COUNT 0.05 10*3/u L 0.01 - 0.13 08/09 Specimen Type: BLOOD No comment entered. Ordering Provider: SKYLAR ARRIOLA Report Released Date/Time: Aug 09, 2022 09:43 AM Reporting Lab: [facility] [place] [address] [address] Performing Lab: [facility] [place] [address] [address] [facility] CBC AND DIFF (AUTO) IMMATURE GRANULOCYTE S/100 LEUKOCYTES IN BLOOD BY AUTOMATED COUNT 0.2 0.0 - 0.7 08/09 Specimen Type: BLOOD No comment entered. Ordering Provider: SKYLAR ARRIOLA Report Released Date/Time: Aug 09, 2022 09:43 AM Reporting Lab: [facility] [place] [address] [address] Performing Lab: [facility] [place] [address] [address] [facility] CBC AND DIFF (AUTO) IMMATURE GRANULOCYTE S [#/VOLUME] IN BLOOD 0.02 10*3/u L 0.00 - 0.06 08/09 Specimen Type: BLOOD No comment entered. Ordering Provider: SKYLAR ARRIOLA Report Released Date/Time: Aug 09, 2022 09:43 AM Reporting Lab: [address] [address] Performing Lab: [address] [address] [facility] HEMOGLOBI N A1C PANEL HEMOGLOBIN A1C/HEMOGLO [...] Aug 09, 2022 09:43 AM Reporting Lab: [address] [address] Performing Lab: [address] [address] [facility] LIVER FUNCTION PROTEIN [MASS/VOLUM E] IN SERUM OR PLASMA 7.5 g/dL 6.0 - 8.3 08/09 Specimen Type: SERUM Comment: BUN Verified by repeat analysis. Ordering Provider: SKYLAR ARRIOLA Report Released Date/Time: Aug 09, 2022 09:43 AM Reporting Lab: [address] [address] Performing Lab: [address] [address] [facility] LIVER FUNCTION ALBUMIN [MASS/VOLUM E] IN SERUM OR PLASMA 4.6 g/dL 3.5 - 5.0 08/09 Specimen Type: SERUM Comment: BUN Verified by repeat analysis. Ordering Provider: SKYLAR ARRIOLA Report Released Date/Time: Aug 09, 2022 09:43 AM Reporting Lab: [facility] [place] [address] [address] Performing Lab: [facility] [place] [facility] [address] [facility] [address] [facility] [place] [facility] LIVER FUNCTION ALKALINE PHOSPHATASE [ENZYMATIC ACTIVITY/VO LUME] IN SERUM OR PLASMA 87 U/L 40 - 150 08/09 Specimen Type: SERUM Comment: BUN Verified by repeat analysis. Ordering Provider: SKYLAR ARRIOLA Report Released Date/Time: Aug 09, 2022 09:43 AM Reporting Lab: [facility] [place] [address] [address] Performing Lab: [facility] [place] [address] [address] [facility] LIVER FUNCTION ASPARTATE AMINOTRANSF ERASE [ENZYMATIC ACTIVITY/VO LUME] IN SERUM OR PLASMA 34 U/L 5 - 34 08/09 Specimen Type: SERUM Comment: BUN Verified by repeat analysis. Ordering Provider: SKYLAR ARRIOLA Report Released Date/Time: Aug 09, 2022 09:43 AM Reporting Lab: [facility] [place] [address] [address] Performing Lab: [facility] [place] [address] [address] [facility] [place] [facility] LIVER FUNCTION ALANINE AMINOTRANSF ERASE [ENZYMATIC ACTIVITY/VO LUME] IN SERUM OR PLASMA 35 U/L 6 - 55 08/09 Specimen Type: SERUM Comment: BUN Verified by repeat analysis. Ordering Provider: SKYLAR ARRIOLA Report Released Date/Time: Aug 09, 2022 09:43 AM Reporting Lab: [facility] [place] [address] [address] Performing Lab: [facility] [place] [facility] [address] [facility] [address] [facility] [place] [facility] LIVER FUNCTION BILIRUBIN.T OTAL [MASS/VOLUM E] IN SERUM OR PLASMA 0.6 mg/dL 0.2 - 1.2 08/09 Specimen Type: SERUM Comment: BUN Verified by repeat analysis. Ordering Provider: SKYLAR ARRIOLA Report Released Date/Time: Aug 09, 2022 09:43 AM Reporting Lab: [facility] [place] [facility] [address] [facility] [address] Performing Lab: [facility] [place] [facility] [address] [facility] [address] [facility] [place] [facility] THYROID T4 FREE(FT4) THYROXINE (T4) FREE [MASS/VOLUM E] IN SERUM OR PLASMA 0.66 ng/dL 0.6 - 1.6 08/09 Specimen Type: SERUM No comment entered. Ordering Provider: SKYLAR ARRIOLA Report Released Date/Time: Aug 09, 2022 09:43 AM Reporting Lab: [facility] [place] [facility] [address] [facility] [address] Performing Lab: [facility] [place] [facility] [address] [facility] [address] [facility] [place] [facility] TSH THYROTROPIN [UNITS/VOLU ME] IN SERUM OR PLASMA 11.71 u[IU]/ mL 0.35 - 5.00 08/09 H Specimen Type: SERUM Comment: BUN Verified by repeat analysis. 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, left eye<br/ > SOSACHEStanford Júnior Bailey 12/18 [facility] En[facility] [id number] 12/21 [facility] FIT SPECTACLES MONOFOCAL [id number] Diagnos is: ICD-10- CM Z46.0 Encount er for fit/adj st of spectac les and contact lenses< br/> MARIANNA GIBSON 12/21 [facility] OFFICE O/P EST SF 10-19 MIN [id number] Diagnos is: ICD-10- CM E11.9 Type 2 diabete s mellitu s without complic ations< br/> Juan A MACHUCA 01/09 [facility] Out[facility] En[facility] [id number] 01/10 [facility] HEARING AID REPAIR/MOD IFYING [id number] Diagnos is: ICD-10- CM Z46.1 Encount er for fitting and adjustm ent of hearing aid<br/ > Huey PEREZ 01/16 [facility] REPAIR & ADJUST SPECTACLES [id number] Diagnos is: ICD-10- CM Z46.0 Encount er for fit/adj st of spectac les and contact lenses< br/> MARYLOU URIAS 01/19 [facility] Out[facility] En[facility] [id number] 02/20 [facility] Encounter [id number] 04/23 [facility] OFFICE O/P EST LOW 20-29 MIN [id number] Diagnos is: ICD-10- CM E11.22 Type 2 diabete s mellitu s w diabeti c chronic kidney disease
SKYLAR LEMUS 05/03 [facility] HEARING AID REPAIR/MOD IFYING [id number] Diagnos is: ICD-10- CM H90.3 Sensori neural hearing loss, bilater al
SENIOR,JOHNSON OLE L 05/24 [facility] Out[facility] Encounter [id number] 06/01 [facility] OFFICE O/P EST SF 10 MIN [id number] Diagnos is: ICD-10- CM E11.9 Type 2 diabete s mellitu s without complic ations< br/> Juan A MACHUCA 06/06 [facility] Out[facility] En[facility] [id number] 09/24 [facility] En[facility] [id number] 09/24 [facility] En[facility] [id number] 10/22 [facility] Out[facility] Encounter [id number] Diagnos is: ICD-10- CM S46.911 A Strain unsp musc/fa sc/tend at shldr/u p arm, right arm, init
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
PICH,TOOTIE H 01/21 [facility] UNLISTED SPEC DERM SVC/PX [id number] 1. Diagnos is: ICD-10- CM Z13.89 Encount er for screeni ng for other disorde r
DARCIE HAIR ICA A 02/06 [facility] TRIM NAIL(S) [id number] 1. Diagnos is: ICD-10- CM E11.9 Type 2 diabete s mellitu s without complic ations< br/> VICENTE MANZANO GAMALIEL 02/06 [facility] [place] [facility] Outpatient Encounter [id number] Diagnos is: ICD-10- CM L57.0 Actinic keratos is
MARY ARIAS PH J 02/07 [facility] [place] [facility] Outpatient Encounter [id number] 02/07 [facility] [place] [facility] [place] [facility] Outpatient Encounter [id number] 02/10 [facility] [place] [facility] [place] [facility] OFFICE O/P EST MOD 30 MIN [id number] Diagnos is: ICD-10- CM E11.9 Type 2 diabete s mellitu s without complic ations< br/> SKYLAR LEMUS 04/17 [facility] [place] [facility] Social History Combined list of available smoking, tobacco, and other social history from Department of Defense and Veterans Affairs facilities. Social History Type Response Date Comment Source Tobacco smoking status [facility] VA-TOBACCO USE FORMER CIGARETTES 04/[facility]2024 [facility] [...] of tobacco use VA-TOBACCO NEVER USED 05/21/2018 [facility] History of tobacco use QUIT TOBACCO USE > 7 YEARS AGO 05/09/2017 quit 35 yrs ago [facility] History of tobacco use LIFETIME NON-TOBACCO USER 05/09/2016 [facility] History of tobacco use QUIT TOBACCO USE > 7 YEARS AGO 05/06/2015 pt states he stopped smoking 20 yrs ago [facility] History of tobacco use QUIT TOBACCO USE > 7 YEARS AGO 04/05/2009 QUIT 15 YEARS AGO [facility] Plan of Care List of future care activities from Department of [facility] Affairs facilities. Additional future care activities may be listed in the Assessment and Plan section. Date/Time Care Activity Care Activity Detail Facili ty 06/09/2024 AMBULATORY - MEDICINE AMBULATORY - MEDICI [facility] 09/23/2024 AMBULATORY - MEDICINE AMBULATORY - [facility]IC[facility]
== END 2024-05-14 08:45 | disposition home or self-care (01) ==
LOC: HO.XRAY 08:44
PROVIDERS: PCP Family Medicine; Visit Provider Hospitalist
DX: R09.89 Other specified symptoms and signs involving the circulatory and respiratory systems (principal); M54.9 Dorsalgia, unspecified
CPT/HCPCS: 71046; 72100

== ENCOUNTER 2024-05-14 08:44 | Outpatient (AMB) | payer BC, SELFPAY ==
--- OUTSIDE RECORDS SUMMARY | 2024-05-14 08:49 | XMS_ITS | Continuity of Care Document ---
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) Active 05/07/19 19 Condition May 21, 2018 Entered By: MC DAN Comment: treated with finasteride [facility] Essential hypertension Active 05/07/19 09 Condition [facility] Hearing loss (SNOMED CT 61945737) Active 05/07/19 09 Condition [facility] HLD - Hyperlipidemia Active 05/07/19 09 Condition [facility] Hypothyroidism (SNOMED CT 70878785) Active 05/07/19 09 Condition [facility] Diabetes Mellitus Type 2 (SCT [id number]) Active Condition Apr 17, 2024 Entered By: SKYLAR GREGORY Comment: vet under care of community PCP/ Dr Sheldon Muniz- good glycemic control [facility] History of actinic keratosis Active Condition Feb 08, 2024 Entered By: SKYLAR GREGORY Comment: see tele derm-lesions on right side of face/ vet needs cryotx per derm [facility] Low Back Pain (SCT 293297116) Active Condition Oct 26, 2021 Entered By: [...] Diagnosis: ICD-10-CM L57.0 Actinic keratosis Active Diagnosis [facility] Diagnosis: ICD-10-CM Z13.89 Encounter for screening [...] aid Active Diagnosis [facility] [place] [facility] Medications Combined list of outpatient medications from [...] ORAL ACTIVE D'ALESSAN KERI MIRANDA G 2023 [facility] BUMETANIDE 1MG TAB TAKE ONE TABLET BY MOUTH ONCE DAILY ORAL ACTIVE D'ALESSAN RUBENKERI G 2023 [facility] CARBOXYMETH YLCELLULOSE NA 0.5% SOLN,OPH INSTILL 1 DROP INTO EACH EYE FOUR TIMES A DAY FOR DRY EYE OPHTHA LMIC ACTIVE 12/25/2024 [id number] 4 SOSA,LAC EY J 2023 45 [facility] GLIPIZIDE 5MG TAB TAKE ONE-HALF TABLET BY MOUTH ORAL ACTIVE D'ALESSAN KERI MIRANDA G 2023 [facility] LEVOTHYROXI NE NA 125MCG TAB (SYNTHROID) TAKE ONE TABLET BY MOUTH QD ORAL ACTIVE D'ALESSAN KERI MIRANDA G 2023 [facility] LISINOPRIL 10MG TAB TAKE ONE TABLET BY MOUTH ONCE DAILY ORAL ACTIVE D'ALESSAN RUBENKERI CASAREZ G 2023 [facility] PRAVASTATIN NA 40MG TAB TAKE ONE TABLET BY MOUTH AT BEDTIME ORAL ACTIVE PRASHANT DAN 2009 [facility] [place] [facility] Immunizations Combined list of available immunizations from the Department of Defense and Veterans Affairs facilities. Immunization Series Date Given Administered By Site Reaction Lot Number CVX Code Drug Ems Director Status Comments Source INFLUENZA, UNSPECIFIED FORMULATION 2023 88 complet ed [facility] [place] [facility] INFLUENZA, UNSPECIFIED FORMULATION 2021 88 complet ed [facility] COVID-19 (MODERNA), MRNA, LNP-S, PF, 100 MCG OR 50 MCG DOSE 3 2020 207 complet ed MOD; [id number]; 2 [facility] COVID-19 (MODERNA), MRNA, LNP-S, PF, 100 MCG/0.5 ML DOSE 2 2020 207 complet ed MOD; [id number]; 1 [facility] COVID-19 (MODERNA), MRNA, LNP-S, PF, 100 MCG/0.5 ML DOSE 1 2020 207 complet ed MOD; [id number]; 1 [facility] [...] ed [facility] [place] FLU,3 YRS (HISTORICAL) 2008 88 complet ed [facility] PNEUMOCOCCAL, UNSPECIFIED FORMULATION 2003 109 complet ed [facility] Results Combined list of recent chemistry, [...] Aug 09, 2022 09:43 AM Reporting Lab: [facility] [address] [address] Performing Lab: [facility] [address] [facility] [place] [address] [facility] HEMOGLOBI N A1C PANEL HEMOGLOBIN A1C/HEMOGLO BIN.TOTAL [...] Aug 09, 2022 09:43 AM Reporting Lab: [facility] [address] [address] Performing Lab: [facility] [address] [address] [facility] BASIC METABOLIC PANEL (non-fast ing) UREA NITROGEN [MASS/VOLUM E] IN SERUM OR PLASMA 27 mg/dL 7 - 25 08/09 H Specimen Type: SERUM Comment: BUN Verified by repeat analysis. Ordering Provider: SKYLAR ARRIOLA Report Released Date/Time: Aug 09, 2022 09:43 AM Reporting Lab: [facility] [address] [address] Performing Lab: [facility] [address] [address] [facility] BASIC METABOLIC PANEL (non-fast ing) GLUCOSE [MASS/VOLUM E] IN SERUM OR PLASMA 126 mg/dL 65 - 100 08/09 H Specimen Type: SERUM Comment: BUN Verified by repeat analysis. Ordering Provider: SKYLAR ARRIOLA Report Released Date/Time: Aug 09, 2022 09:43 AM Reporting Lab: [facility] [address] [address] Performing Lab: [facility] [address] [address] [facility] BASIC METABOLIC PANEL (non-fast ing) SODIUM [MOLES/VOLU ME] IN SERUM OR PLASMA 142 mmol/L 135 - 145 08/09 Specimen Type: SERUM Comment: BUN Verified by repeat analysis. Ordering Provider: SKYLAR ARRIOLA Report Released Date/Time: Aug 09, 2022 09:43 AM Reporting Lab: [facility] [address] [address] Performing Lab: [facility] [address] [address] [facility] BASIC METABOLIC PANEL (non-fast ing) POTASSIUM [MOLES/VOLU ME] IN SERUM OR PLASMA 4.6 mmol/L 3.5 - 5.0 08/09 Specimen Type: SERUM Comment: BUN Verified by repeat analysis. Ordering Provider: SKYLAR ARRIOLA Report Released Date/Time: Aug 09, 2022 09:43 AM Reporting Lab: [facility] [address] [address] Performing Lab: [facility] [address] [address] [facility] BASIC METABOLIC PANEL (non-fast ing) CHLORIDE [MOLES/VOLU ME] IN SERUM OR PLASMA 105 mmol/L 100 - 110 08/09 Specimen Type: SERUM Comment: BUN Verified by repeat analysis. Ordering Provider: SKYLAR ARRIOLA Report Released Date/Time: Aug 09, 2022 09:43 AM Reporting Lab: [facility] [address] [address] Performing Lab: [address] [address] [facility] BASIC METABOLIC PANEL (non-fast ing) CARBON DIOXIDE, TOTAL [MOLES/VOLU ME] IN SERUM OR PLASMA 26 meq/L 20 - 30 08/09 Specimen Type: SERUM Comment: BUN Verified by repeat analysis. Ordering Provider: SKYLAR ARRIOLA Report Released Date/Time: Aug 09, 2022 09:43 AM Reporting Lab: [address] [address] Performing Lab: [address] [address] [facility] BASIC METABOLIC PANEL (non-fast ing) CREATININE [MASS/VOLUM E] IN SERUM OR PLASMA 1.92 mg/dL 0.50 - 1.40 08/09 H Specimen Type: SERUM Comment: BUN Verified by repeat analysis. Ordering Provider: SKYLAR ARRIOLA Report Released Date/Time: Aug 09, 2022 09:43 AM Reporting Lab: [facility] [address] [address] Performing Lab: [facility] [address] [address] [facility] BASIC METABOLIC PANEL (non-fast ing) GLOMERULAR FILTRATION RATE/1.73 SQ M.PREDICTED [VOLUME RATE/AREA] IN SERUM, PLASMA OR BLOOD BY CREATININE- BASED FORMULA (CKD-EPI) 33 mL/min 60 08/09 L Specimen Type: SERUM Comment: BUN Verified by repeat analysis. Ordering Provider: SKYLAR ARRIOLA Report Released Date/Time: Aug 09, 2022 09:43 AM Reporting Lab: [facility] [place] [address] [address] Performing Lab: [facility] [place] [address] [address] [facility] TSH THYROTROPIN [UNITS/VOLU ME] IN SERUM OR PLASMA 11.71 u[IU]/ mL 0.35 - 5.00 08/09 H Specimen Type: SERUM Comment: BUN Verified by repeat analysis. Ordering Provider: SKYLAR ARRIOLA Report Released Date/Time: Aug 09, 2022 09:43 AM Reporting Lab: [facility] [place] [address] [address] Performing Lab: [facility] [place] [address] [address] [facility] [place] [facility] LIVER FUNCTION PROTEIN [MASS/VOLUM E] IN SERUM OR PLASMA 7.5 g/dL 6.0 - 8.3 08/09 Specimen Type: SERUM Comment: BUN Verified by repeat analysis. Ordering Provider: SKYLAR ARRIOLA Report Released Date/Time: Aug 09, 2022 09:43 AM Reporting Lab: [facility] [place] [address] [address] Performing Lab: [facility] [place] [address] [address] [facility] [place] [facility] LIVER FUNCTION ALBUMIN [MASS/VOLUM E] IN SERUM OR PLASMA 4.6 g/dL 3.5 - 5.0 08/09 Specimen Type: SERUM Comment: BUN Verified by repeat analysis. Ordering Provider: SKYLAR ARRIOLA Report Released Date/Time: Aug 09, 2022 09:43 AM Reporting Lab: [facility] [place] [address] [address] Performing Lab: [facility] [place] [facility] [address] [address] [facility] LIVER FUNCTION ALKALINE PHOSPHATASE [ENZYMATIC ACTIVITY/VO LUME] IN SERUM OR PLASMA 87 U/L 40 - 150 08/09 Specimen Type: SERUM Comment: BUN Verified by repeat analysis. Ordering Provider: SKYLAR ARRIOLA Report Released Date/Time: Aug 09, 2022 09:43 AM Reporting Lab: [facility] [place] [facility] [address] [address] Performing Lab: [facility] [place] [address] [address] [facility] [place] [facility] LIVER FUNCTION ASPARTATE AMINOTRANSF ERASE [ENZYMATIC ACTIVITY/VO LUME] IN SERUM OR PLASMA 34 U/L 5 - 34 08/09 Specimen Type: SERUM Comment: BUN Verified by repeat analysis. Ordering Provider: SKYLAR ARRIOLA Report Released Date/Time: Aug 09, 2022 09:43 AM Reporting Lab: [facility] [place] [address] [address] Performing Lab: [facility] [place] [address] [address] [facility] LIVER FUNCTION ALANINE AMINOTRANSF ERASE [ENZYMATIC ACTIVITY/VO LUME] IN SERUM OR PLASMA 35 U/L 6 - 55 08/09 Specimen Type: SERUM Comment: BUN Verified by repeat analysis. Ordering Provider: SKYLAR ARRIOLA Report Released Date/Time: Aug 09, 2022 09:43 AM Reporting Lab: [facility] [place] [address] [address] Performing Lab: [facility] [place] [address] [address] [facility] [place] [facility] LIVER FUNCTION BILIRUBIN.T OTAL [MASS/VOLUM E] IN SERUM OR PLASMA 0.6 mg/dL 0.2 - 1.2 08/09 Specimen Type: SERUM Comment: BUN Verified by repeat analysis. Ordering Provider: SKYLAR ARRIOLA Report Released Date/Time: Aug 09, 2022 09:43 AM Reporting Lab: [facility] [place] [address] [address] Performing Lab: [facility] [place] [address] [address] [facility] [place] [facility] CBC AND DIFF (AUTO) LEUKOCYTES [#/VOLUME] IN BLOOD BY AUTOMATED COUNT 9.01 10*3/u L 4.50 - 11.00 08/09 Specimen Type: BLOOD No comment entered. Ordering Provider: SKYLAR ARRIOLA Report Released Date/Time: Aug 09, 2022 09:43 AM Reporting Lab: [facility] [place] [address] [address] Performing Lab: [facility] [place] [address] [address] [facility] [place] [facility] CBC AND DIFF (AUTO) ERYTHROCYTE S [#/VOLUME] IN BLOOD BY AUTOMATED COUNT 3.97 10*6/u L 4.23 - 5.66 08/09 L Specimen Type: BLOOD No comment entered. Ordering Provider: SKYLAR ARRIOLA Report Released Date/Time: Aug 09, 2022 09:43 AM Reporting Lab: [facility] [place] [address] [address] Performing Lab: [facility] [place] [address] [address] [facility] [place] [facility] CBC AND DIFF (AUTO) HEMOGLOBIN [MASS/VOLUM E] IN BLOOD 14.1 g/dL 12.8 - 17 08/09 Specimen Type: BLOOD No comment entered. Ordering Provider: SKYLAR ARRIOLA Report Released Date/Time: Aug 09, 2022 09:43 AM Reporting Lab: [facility] [place] [address] [address] Performing Lab: [facility] [place] [address] [address] [facility] [place] [facility] CBC AND DIFF (AUTO) HEMATOCRIT [VOLUME FRACTION] OF BLOOD BY AUTOMATED COUNT 41.5 39.2 - 50.4 08/09 Specimen Type: BLOOD No comment entered. Ordering Provider: SKYLAR ARRIOLA Report Released Date/Time: Aug 09, 2022 09:43 AM Reporting Lab: [facility] [place] [facility] [address] [address] Performing Lab: [facility] [place] [facility] [address] [address] [facility] [place] [facility] CBC AND DIFF (AUTO) MCV [ENTITIC VOLUME] BY AUTOMATED COUNT 104.5 fL 82 - 99 08/09 H Specimen Type: BLOOD No comment entered. Ordering Provider: SKYLAR ARRIOLA Report Released Date/Time: Aug 09, 2022 09:43 AM Reporting Lab: [facility] [place] [address] [address] Performing Lab: [facility] [place] [address] [address] [facility] CBC AND DIFF (AUTO) MCHC [MASS/VOLUM E] BY AUTOMATED COUNT 34.0 g/dL 30.8 - 35.1 08/09 Specimen Type: BLOOD No comment entered. Ordering Provider: SKYLAR ARRIOLA Report Released Date/Time: Aug 09, 2022 09:43 AM Reporting Lab: [facility] [place] [address] [address] Performing Lab[facility] [place] [address] [address] [facility] [place] [facility] CBC AND DIFF (AUTO) PLATELETS [#/VOLUME] IN BLOOD BY AUTOMATED COUNT 174 10*3/u L 140 - 360 08/09 Specimen Type: BLOOD No comment entered. Ordering Provider: SKYLAR ARRIOLA Report Released Date/Time: Aug 09, 2022 09:43 AM Reporting Lab: [facility] [place] [facility] [address] [address] Performing Lab: [facility] [place] [facility] [address] [address] [facility] CBC AND DIFF (AUTO) ERYTHROCYTE DISTRIBUTIO N WIDTH [RATIO] BY AUTOMATED COUNT 13.2 12.0 - 16.0 08/09 Specimen Type: BLOOD No comment entered. Ordering Provider: SKYLAR ARRIOLA Report Released Date/Time: Aug 09, 2022 09:43 AM Reporting Lab: [facility] [place] [facility] [address] [address] Performing Lab: [facility] [place] [facility] [address] [address] [facility] CBC AND DIFF (AUTO) MONOCYTES [#/VOLUME] IN BLOOD BY AUTOMATED COUNT 0.55 10*3/u L 0.30 - 1.10 08/09 Specimen Type: BLOOD No comment entered. Ordering Provider: SKYLAR ARRIOLA Report Released Date/Time: Aug 09, 2022 09:43 AM Reporting Lab: [facility] [place] [facility] [address] [address] Performing Lab: [facility] [place] [facility] [address] [address] [facility] CBC AND DIFF (AUTO) MCH [ENTITIC MASS] BY AUTOMATED COUNT 35.5 pg 26.2 - 32.6 08/09 H Specimen Type: BLOOD No comment entered. Ordering Provider: SKYLAR ARRIOLA Report Released Date/Time: Aug 09, 2022 09:43 AM Reporting Lab: [facility] [place] [facility] [address] [address] Performing Lab: [facility] [place] [facility] [address] [address] [facility] CBC AND DIFF (AUTO) NEUTROPHILS /100 LEUKOCYTES IN BLOOD BY AUTOMATED COUNT 73.2 43.7 - 75.8 08/09 Specimen Type: BLOOD No comment entered. Ordering Provider: SKYLAR ARRIOLA Report Released Date/Time: Aug 09, 2022 09:43 AM Reporting Lab: [facility] [address] [address] Performing Lab: [facility] [address] [address] [facility] CBC AND DIFF (AUTO) LYMPHOCYTES /100 LEUKOCYTES IN BLOOD BY AUTOMATED COUNT 17.9 14.0 - 42.3 08/09 Specimen Type: BLOOD No comment entered. Ordering Provider: SKYLAR ARRIOLA Report Released Date/Time: Aug 09, 2022 09:43 AM Reporting Lab: [facility] [address] [address] Performing Lab[facility] [address] [address] [facility] [place] [facility] CBC AND DIFF (AUTO) MONOCYTES/1 00 LEUKOCYTES IN BLOOD BY AUTOMATED COUNT 6.1 5.1 - 13.7 08/09 Specimen Type: BLOOD No comment entered. Ordering Provider: SKYLAR ARRIOLA Report Released Date/Time: Aug 09, 2022 09:43 AM Reporting Lab: [facility] [address] [address] Performing Lab: [facility] [address] [address] [facility] CBC AND DIFF (AUTO) EOSINOPHILS /100 LEUKOCYTES IN BLOOD BY AUTOMATED COUNT 2.0 0.4 - 6.8 08/09 Specimen Type: BLOOD No comment entered. Ordering Provider: SKYLAR ARRIOLA Report Released Date/Time: Aug 09, 2022 09:43 AM Reporting Lab: [facility] [address] [address] Performing Lab: [facility] [address] [address] [facility] [place] CBC AND DIFF (AUTO) BASOPHILS/1 00 LEUKOCYTES IN BLOOD BY AUTOMATED COUNT 0.6 0.1 - 2.0 08/09 Specimen Type: BLOOD No comment entered. Ordering Provider: SKYLAR ARRIOLA Report Released Date/Time: Aug 09, 2022 09:43 AM Reporting Lab: [facility] [place] [address] [address] Performing Lab: [facility] [place] [address] [address] [facility] [place] [facility] CBC AND DIFF (AUTO) NEUTROPHILS [#/VOLUME] IN BLOOD BY AUTOMATED COUNT 6.60 10*3/u L 2.20 - 7.60 08/09 Specimen Type: BLOOD No comment entered. Ordering Provider: SKYLAR ARRIOLA Report Released Date/Time: Aug 09, 2022 09:43 AM Reporting Lab: [facility] [place] [address] [address] Performing Lab: [facility] [place] [address] [address] [facility] [place] [facility] CBC AND DIFF (AUTO) LYMPHOCYTES [#/VOLUME] IN BLOOD BY AUTOMATED COUNT 1.61 10*3/u L 1.00 - 3.20 08/09 Specimen Type: BLOOD No comment entered. Ordering Provider: SKYLAR ARRIOLA Report Released Date/Time: Aug 09, 2022 09:43 AM Reporting Lab: [facility] [place] [facility] [address] [address] Performing Lab: [facility] [place] [address] [address] [facility] [place] [facility] CBC AND DIFF (AUTO) EOSINOPHILS [#/VOLUME] IN BLOOD BY AUTOMATED COUNT 0.18 10*3/u L 0.03 - 0.44 08/09 Specimen Type: BLOOD No comment entered. Ordering Provider: SKYLAR ARRIOLA Report Released Date/Time: Aug 09, 2022 09:43 AM Reporting Lab: [facility] [place] [facility] [address] [address] Performing Lab: [facility] [place] [facility] [address] [address] [facility] [place] [facility] CBC AND DIFF (AUTO) BASOPHILS [#/VOLUME] IN BLOOD BY AUTOMATED COUNT 0.05 10*3/u L 0.01 - 0.13 08/09 Specimen Type: BLOOD No comment entered. Ordering Provider: SKYLAR ARRIOLA Report Released Date/Time: Aug 09, 2022 09:43 AM Reporting Lab: [facility] [place] [facility] [address] [address] Performing Lab: [facility] [place] [facility] [address] [address] [facility] [place] [facility] CBC AND DIFF (AUTO) IMMATURE GRANULOCYTE S/100 LEUKOCYTES IN BLOOD BY AUTOMATED COUNT 0.2 0.0 - 0.7 08/09 Specimen Type: BLOOD No comment entered. Ordering Provider: SKYLAR ARRIOLA Report Released Date/Time: Aug 09, 2022 09:43 AM Reporting Lab: [facility] [place] [facility] [address] [address] Performing Lab: [facility] [place] [facility] [address] [address] [facility] [place] [facility] CBC AND DIFF (AUTO) IMMATURE GRANULOCYTE S [#/VOLUME] IN BLOOD 0.02 10*3/u L 0.00 - 0.06 08/09 Specimen Type: BLOOD No comment entered. 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, left eye<br/ > SOSACHEStanford Júnior Bailey 12/18 [facility] En[facility] [id number] 12/21 [facility] FIT SPECTACLES MONOFOCAL [id number] Diagnos is: ICD-10- CM Z46.0 Encount er for fit/adj st of spectac les and contact lenses< br/> MARIANNA GIBSON 12/21 [facility] OFFICE O/P EST SF 10-19 MIN [id number] Diagnos is: ICD-10- CM E11.9 Type 2 diabete s mellitu s without complic ations< br/> Juan A MACHUCA 01/09 [facility] Out[facility] En[facility] [id number] 01/10 [facility] HEARING AID REPAIR/MOD IFYING [id number] Diagnos is: ICD-10- CM Z46.1 Encount er for fitting and adjustm ent of hearing aid<br/ > Huey PEREZ 01/16 [facility] REPAIR & ADJUST SPECTACLES [id number] Diagnos is: ICD-10- CM Z46.0 Encount er for fit/adj st of spectac les and contact lenses< br/> MARYLOU URIAS 01/19 [facility] Outpatient Encounter [id number] 02/20 [facility] Out[facility] Encounter [id number] 04/23 [facility] OFFICE O/P EST LOW 20-29 MIN [id number] Diagnos is: ICD-10- CM E11.22 Type 2 diabete s mellitu s w diabeti c chronic kidney disease
SKYLAR LEMUS 05/03 [facility] HEARING AID REPAIR/MOD IFYING [id number] Diagnos is: ICD-10- CM H90.3 Sensori neural hearing loss, bilater al
SENIOR,JOHNSON OLE L 05/24 [facility] Outpatient Encounter [id number] 06/01 [facility] OFFICE O/P EST SF 10 MIN [id number] Diagnos is: ICD-10- CM E11.9 Type 2 diabete s mellitu s without complic ations< br/> Juan A MACHUCA 06/06 [facility] Out[facility] Encounter [id number] 09/24 [facility] Out[facility] Encounter [id number] 09/24 [facility] Out[facility] Encounter [id number] 10/22 [facility] Out[facility] Encounter [id number] Diagnos is: ICD-10- CM S46.911 A Strain unsp musc/fa sc/tend at shldr/u p arm, right arm, init
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
PICH,TOOTIE H 01/21 [facility] [facility] UNLISTED SPEC DERM SVC/PX [id number] 1. Diagnos is: ICD-10- CM Z13.89 Encount er for screeni ng for other disorde r
DARCIE HAIR ICA A 02/06 [facility] TRIM NAIL(S) [id number] 1. Diagnos is: ICD-10- CM E11.9 Type 2 diabete s mellitu s without complic ations< br/> VICENTE MANZANO GAMALIEL 02/06 [facility] Outpatient Encounter [id number] Diagnos is: ICD-10- CM L57.0 Actinic keratos is
MARY ARIAS PH J 02/07 [facility] Outpatient Encounter [id number] 02/07 [facility] Outpatient Encounter [id number] 02/10 [place] [facility] OFFICE O/P EST MOD 30 MIN [id number] Diagnos is: ICD-10- CM E11.9 Type 2 diabete s mellitu s without complic ations< br/> SKYLAR LEMUS 04/17 [place] [facility] Social History Combined list of available [...] of tobacco use VA-TOBACCO NEVER USED 05/21/2018 [facility] History of tobacco use QUIT TOBACCO USE > 7 YEARS AGO 05/09/2017 quit 35 yrs ago [facility] History of tobacco use LIFETIME NON-TOBACCO USER 05/09/2016 [facility] History of tobacco use QUIT TOBACCO USE > 7 YEARS AGO 05/06/2015 pt states he stopped smoking 20 yrs ago [facility] History of tobacco use QUIT TOBACCO USE > 7 YEARS AGO 04/05/2009 QUIT 15 YEARS AGO [facility] Plan of Care List of future care activities from Department of [facility] facilities. Additional future care activities may be listed in the Assessment and Plan section. Date/Time Care Activity Care Activity Detail Facili ty 06/09/2024 AMBULATORY - MEDICINE AM[facility]ULATORY - [facility] 09/23/2024 AMBULATORY - MEDICINE [facility] - [facility]
--- NOTE | 2024-05-14 08:55 | MHC.OFFVIS ---
Vital Signs 05/14/24 08:56 Height 5 ft 6 in Weight 174 lb 2.643 oz BMI 28.1 BP 118/60 Blood Pressure Location Lt brachial Position Sitting Pulse 65 Pulse Source Pulse Oximeter Pulse Oximetry (%) 97 Oxygen Delivery Method Room Air Intake Visit Reasons: COPD Allergies hydralazine [Hydralazine] Allergy (Unknown, Verified 05/14/24 09:00) SEVERE HEADACHE HPI Comments Details: The patient is an 89 [id number] gentleman, [place] , who is presenting with the normal CT scan of the chest. The patient denies any respiratory complaints. He denies any shortness of breath or cough. He denies any night sweats or any weight loss. He has always been involved with his martial arts and tries to stay active. 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 The patient did have a CT scan of the chest recently which was personally by me. 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 I did review his previous CT scan from 2017 in the right hemidiaphragm elevation is chronic. I he does state when he was young he did fall from about 8-12 feet and landed on the right side. we did speak about different conditions that can result in the elevation of the diaphragm. But at this point the patient is asymptomatic and based on the chronicity I would not do any further testing. The patient also has evidence of pulmonary nodules. The larger nodule is in the calcified consistent with granulomatous disease. the patient did spend time around the [place] part of the [employer]. Therefore he is at risk for development of latent tuberculosis. He denies ever been tested for tuberculosis that he is aware of. it is reassuring that the pulmonary nodules have not significantly changed when compared to 2017. the patient does not have any significant symptoms do from a respiratory status so therefore will undergo blood work to assess the granulomas including rule out tuberculosis. 11/29/2021 the patient is here for a pulmonary follow-up visit. Overall the patient has been doing well. He did look back to see if he had any injuries to his right chest. He states that more than 20 years ago he had 2 large breaks on his chest that were broken during a martial arts exhibition. From a respiratory status is not holding him back he still exercising walking regularly. He still practicing martial arts. We did look at the blood work including a positive TB spot suggesting latent tuberculosis with his calcified pulmonary nodules. He denies any symptoms of weight loss night sweats hemoptysis or cough at this time. Will plan to follow up the pulmonary nodules in 6 months from now. If the patient develops any worsening symptoms prior to that is to call for an earlier appointment. He also document some wheezing at times when he walks. But is very transient and goes away on its own. The patient was offered a rescue inhaler but he really does not want 1 since he is taking so many medications already. I did encourage him to call the office if he develops any worsening respiratory symptoms prior to the next appointment. 05/24/2022 the patient is here for a pulmonary follow-up visit. Overall the patient is doing well from a respiratory status. He does complaint of some right upper quadrant abdominal discomfort at times. He is wondering if it is from the lungs. At this point he does not have the discomfort. It comes and goes and it radiates to the back. It about moderate severity when it does happen. We did review his last CT scan of the chest demonstrating stable pulmonary nodules. The patient does have an elevated right hemidiaphragm likely secondary to a traumatic injury in the past. In the meantime the abdominal discomfort that he is describing is pointing to his gallbladder way a significant amount of stones. At this point the patient is asymptomatic. If the patient develops any further right upper quadrant abdominal discomfort he is to get evaluated for potential gallbladder disease. It is also reassuring that the pulmonary nodules are not changing. Therefore, I will not order a repeat CT scan at this time. If however the patient develops any new or concerning symptoms we can always re-evaluate at that time. 05/08/2023 the patient is here for a pulmonary follow-up visit. Overall the patient is doing fairly well. Still complaining of right-sided chest discomfort. Is off and on. Typically with sudden movements it can be more significant. Right now she was better although he did precipitate a little bit by doing his martial arts movements. 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 We did review his last chest x-ray that she had back in October 2022 demonstrating elevated hemidiaphragm which is chronic for him. Likely related to trauma which is blood trauma back when he was in high school. The patient's last CT scan was a year ago and it demonstrated stable pulmonary nodules. We did not have to follow-up with additional CT scans at this time unless his discomfort worsens. We did talk about polj-bgy-xxkotvy medications to consider such as turmeric or glucosamine chondroitin 10 for his arthritis. The patient will follow up with his primary care doctor as well. Will follow-up in a year's time if the patient has any worsening symptoms prior to the next visit he will should call for earlier assessment. 05/14/2024 the patient is here for a pulmonary follow-up visit. Overall he is doing well from a respiratory status. He has been having some right-sided discomfort in addition to that some back pain. He has been having also noticing some shortness of breath with activity specially going up a flight of stairs. He is also working with primary care because of significant back pain. Sometimes he feels like a pulse in the back the lower back area. On exam he does have some crackles in the right base which are new. Therefore have him get an x-ray of the chest in addition to lumbar x-ray to make sure with the back. The patient right now has a rescue inhaler that he can use as needed. He will follow-up in 4-6 months. If she has any issues prior to that we can always see him sooner. If his abnormal findings on the x-ray then I will let him know about additional imaging studies. FORMERLY [facility], [facility] Medical History Chest pain RUQ pain Wheezing Elevated diaphragm Pulmonary nodules Aortic stenosis Edema CAD (coronary artery disease) Diabetes type 2, controlled Elevated prostate specific antigen between 10 and 19 ng/ml Atrial fibrillation [place]'s disease Elevated morning serum cortisol level Surgical History History of cardiac cath Hx of tonsillectomy Hx of colonoscopy Family History Father Colon cancer Mother HTN (hypertension) Type 2 diabetes mellitus Brother No problems noted. Sister No problems noted. Son No problems noted. Son No problems noted. Son No problems noted. Daughter No problems noted. Daughter No problems noted. Social History Housing: Apartment Alcohol intake: former Year quit: 1979 Patient Tobacco Use Status: Former Tobacco user Years Smoked: 45+ e-Cigarette/Vaping Use: Never Used Second Hand Smoke Exposure: No service: Yes ([employer] [id number]) Current occupational status: retired Current occupational exposures/hazards: No Cognitive needs: No Hearing needs: Yes Vision needs: No Review of Systems Const Denies night sweats ENT Denies change in voice, Denies lip swelling, Denies mouth pain, Reports nasal congestion, Reports nasal discharge and Denies tongue swelling Card Reports chest pain Resp Denies cough and Reports pain on inspiration GI Reports abdominal pain Musc Reports back pain Neuro Denies Neuro-related abnormal movements Psych Denies no additional complaints Joel/Lymph Denies easy bleeding and Denies lymphadenopathy Aller/Immun Denies lip swelling and Denies tongue swelling Physical Exam Vital Signs: Last Vital Signs Pulse 65 05/14/24 08:56 BP 118/60 05/14/24 08:56 Pulse Ox 97 05/14/24 08:56 Oxygen Delivery Method Room Air 05/14/24 08:56 BMI result Body Mass Index 28.1 Const General: alert Neck Neck: Yes normal visual inspection, Yes full ROM and Yes no lymphadenopathy Chest Chest palpation & inspection: normal inspection of the chest Resp Auscultation: crackles on the right at the base and diminished lung sounds Cardio Rate: regular rate Rhythm: regular rhythm Heart sounds: S1 normal heart sound present and S2 normal heart sound present GI Palpation (GI): Soft to palpation and nontender Auscultation: normal bowel sounds Skin General skin exam: rashes and/or lesions noted Assessment & Plan Assessment & Plan (1) Pulmonary nodules: Code(s): R91.8 - Other nonspecific abnormal finding of lung field Category: Medical (2) Elevated diaphragm: Comment: Right side. Likely trauma. Asymptomatic Code(s): J98.6 - Disorders of diaphragm Category: Medical (3) Chest pain: Comment: reproducible Code(s): R07.9 - Chest pain, unspecified Category: Medical Qualifiers: Chest pain type: intercostal pain Qualified Code(s): R07.82 - Intercostal pain (4) Chest crackles: Code(s): R09.89 - Other specified symptoms and signs involving the circulatory and respiratory systems Category: Medical Plan Consider PEDRO as needed CXR, lumbar xrays F/U 6 months Orders: Orders XR lumbar spine 2-3V Today M54.9 - Dorsalgia, unspecified XR chest 2V Today R09.89 - Other specified symptoms and signs involving the circulatory and respiratory systems Coding Level of Care Code Est Pt Level 4 (56647) Diagnoses Pulmonary nodules R91.8 Elevated diaphragm J98.6 Intercostal pain R07.82 Chest pain type: intercostal pain Chest crackles R09.89 Time Spent (min) 16
[2024-05-14 08:56] VITALS: BP 118/60; PULSE 65; O2SAT 97; BMI 28.1
== END 2024-05-14 09:16 | disposition home or self-care (01) ==
PROVIDERS: PCP Family Medicine; Visit Provider Hospitalist
DX: R91.8 Other nonspecific abnormal finding of lung field (principal); J98.6 Disorders of diaphragm; R07.82 Intercostal pain; R09.89 Other specified symptoms and signs involving the circulatory and respiratory systems
CPT/HCPCS: 99214

== ENCOUNTER → 2024-05-14 09:25 | Outpatient (BNV) | payer BC, SELFPAY | PROVIDERS: PCP Family Medicine; Visit Provider Radiology Diagnostic Radiology | DX: M54.9 Dorsalgia, unspecified (principal); R09.89 Other specified symptoms and signs involving the circulatory and respiratory systems | CPT/HCPCS: 71046; 72100 ==

== ENCOUNTER 2024-05-14 12:39 | Outpatient (AMB) | payer BC, SELFPAY ==
[2024-05-14 12:50] VITALS: BP 112/54; PULSE 71; BMI 27.6
--- NOTE | 2024-05-14 12:50 | MHC.OFFVIS ---
Vital Signs 05/14/24 12:50 Height 5 ft 6 in Weight 171 lb 1.259 oz BMI 27.6 BP 112/54 L Blood Pressure Location Lt brachial Position Sitting Pulse 71 Pulse Source Pulse Oximeter Intake Visit Reasons: 6 mth f/up Intake Note: 6 mth f/up Electrician Required: No Accompanied by: Self / Same As Patient Allergies hydralazine [Hydralazine] Allergy (Unknown, Verified 05/14/24 09:00) SEVERE HEADACHE Medication List - Last Reconciled 05/14/24 by Leon Gilbert MD amlodipine 5 mg PO DAILY ascorbic acid (vitamin C) PO DAILY blood sugar diagnostic As directed blood sugar diagnostic (OneTouch Ultra Test strips) 1 strip miscellaneous BID 1 month bumetanide 1 mg PO Q OTHER DAY 90 days glipizide ER 2.5 mg PO DAILY 90 days lancets One Touch Ultra Test Strips As directed to test blood sugar twice a day. Ninety day supply lancets (OneTouch UltraSoft 2 Lancet) As directed levothyroxine 125 mcg PO DAILY lisinopril 5 mg PO DAILY 90 days multivitamin (Daily Multi-Vitamin) PO pravastatin 40 mg PO DAILY tamsulosin 0.4 mg PO BEDTIME 30 days warfarin 4 mg See Protocol PO DAILY HPI Comments Details: Pleasant 89 gentleman for follow-up. He was previously seen for atrial fibrillation and exertion chest discomfort. He underwent stress testing followed by cardiac catheterization which showed mild coronary artery disease. He is being managed for AFib with a rate control strategy. He was seen by visiting nurses and was thought to be in heart failure. He was started on Bumex. After discussion with him it appears it was started because he had lower extremity edema. He is denying any shortness of breath, orthopnea PND. He said his lower extremities were swollen which previously we felt were due to amlodipine use. On follow up, he has been doing well. No CP or SOB. Clinically stable. 04/02/23: He is here for follow-up. He has been doing well. He has cramp in his left calf at times at rest. With activity or walking around he does not get any pain. Overall clinically stable. Blood pressure control is good. 11/05/2023: He returns for follow-up. He continues to be active and has some chest pains and back pain which are musculoskeletal in origin. I have advised him to continue exercise. Taking medications regularly. Blood pressure is well controlled. He has permanent atrial fibrillation. 05/14/2024: He is here for follow-up. No chest pain or shortness of breath. He has lower extremity edema which is due to amlodipine but he has progression in edema and he is saying he has friends have also noticed that his legs are more swollen. He is taking Bumex every other day. No symptoms/signs of heart failure otherwise. [facility] Medical History Chest pain RUQ pain Wheezing Elevated diaphragm Pulmonary nodules Aortic stenosis Edema CAD (coronary artery disease) Diabetes type 2, controlled Elevated prostate specific antigen between 10 and 19 ng/ml Atrial fibrillation [place]'s disease Elevated morning serum cortisol level Surgical History History of cardiac cath Hx of tonsillectomy Hx of colonoscopy Family History Father Colon cancer Mother HTN (hypertension) Type 2 diabetes mellitus Brother No problems noted. Sister No problems noted. Son No problems noted. Son No problems noted. Son No problems noted. Daughter No problems noted. Daughter No problems noted. Social History Housing: Apartment Alcohol intake: former Year quit: 1979 Patient Tobacco Use Status: Former Tobacco user Years Smoked: 45+ e-Cigarette/Vaping Use: Never Used Second Hand Smoke Exposure: No service: Yes ([employer] [id number]) Current occupational status: retired Current occupational exposures/hazards: No Cognitive needs: No Hearing needs: Yes Vision needs: No Review of Systems Const Denies chills, Denies fatigue, Denies fever(s), Denies frequent falls, Denies weakness, Denies weight gain and Denies weight loss ENT Denies dizziness Card Denies chest pain, Denies leg edema, Denies lightheadedness, Denies palpitations, Denies dyspnea and Denies dyspnea on exertion Resp Denies cough, Denies dyspnea and Denies dyspnea on exertion GI Denies hematochezia Musc Denies abnormal gait, Denies muscle weakness, Denies numbness, Denies radiating pain into limb and Denies tingling Neuro Denies abnormal gait, Denies dizziness, Denies frequent falls, Denies numbness, Denies tingling and Denies weakness Endo Denies fatigue and Denies palpitations Physical Exam Vital Signs: Last Vital Signs Pulse 71 05/14/24 12:50 BP 112/54 L 05/14/24 12:50 BMI result Body Mass Index 27.6 GENERAL APPEARANCE: in no acute distress, pleasant. NECK: no carotid bruit, no jugular venous distention. SKIN: no suspicious lesions, warm and dry. HEART: no murmurs, irregular rate and rhythm. LUNGS: clear to auscultation bilaterally. ABDOMEN: soft, nontender. EXTREMITIES: 1 to 2+ edema. PERIPHERAL PULSES: equal. NEUROLOGIC: No gross deficits, AAO X 3 Assessment & Plan Assessment & Plan (1) Essential hypertension: Code(s): I10 - Essential (primary) hypertension Category: Medical (2) Atrial fibrillation: Code(s): I48.91 - Unspecified atrial fibrillation Category: Medical Plan Pleasant 88 gentleman with history of permanent atrial fibrillation, hypertension and peripheral edema. Heart rate is well controlled. Blood pressure control is good. He has peripheral edema due to amlodipine. I have advised him to stop the amlodipine. We will see him back in 3 months and reassess the lower extremity edema. Continue Bumex every other day. Clinically not in heart failure. On Coumadin for anticoagulation for permanent atrial fibrillation. Follow-up 3 months. Thank you for allowing me to participate in the care of your patient. Please feel free to contact me if you have any questions. Coding Level of Care Code Est Pt Level 4 (14103) Diagnoses Essential hypertension I10 Atrial fibrillation I48.91
== END 2024-05-14 13:30 | disposition home or self-care (01) ==
PROVIDERS: PCP Family Medicine; Visit Provider Internal Medicine Cardiovascular Disease
DX: I10 Essential (primary) hypertension (principal); I48.91 Unspecified atrial fibrillation
CPT/HCPCS: 99214

== ENCOUNTER 2024-05-19 08:02 | Outpatient (AMB) | payer BC, SELFPAY ==
--- OUTSIDE RECORDS SUMMARY | 2024-05-19 08:05 | XMS_ITS | Continuity of Care Document ---
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) Active 05/07/19 19 Condition May 21, 2018 Entered By: MC DAN Comment: treated with finasteride [facility] Essential hypertension Active 05/07/19 09 Condition [facility] Hearing loss (SNOMED CT 94574798) Active 05/07/19 09 Condition [facility] HLD - Hyperlipidemia Active 05/07/19 09 Condition [facility] Hypothyroidism (SNOMED CT 10286824) Active 05/07/19 09 Condition [facility] Diabetes Mellitus Type 2 (SCT 51281052) Active Condition Apr 17, 2024 Entered By: SKYLAR GREGORY Comment: vet under care of community PCP/ Dr Sheldon Muniz- good glycemic control [facility] History of actinic keratosis Active Condition Feb 08, 2024 Entered By: SKYLAR GREGORY Comment: see tele derm-lesions on right side of face/ vet needs cryotx per derm [facility] Low Back Pain (SCT 806530866) Active Condition Oct 26, 2021 Entered By: [...] aid Active Diagnosis [facility] [place] [facility] Medications Combined list of outpatient [...] ORAL ACTIVE D'ALESSAN KERI MIRANDA G 20[facility]UMETANIDE 1MG TAB TAKE ONE TABLET BY MOUTH ONCE DAILY ORAL ACTIVE D'ALESSAN RUBENKERI G [facility]23 [facility] CARBOXYMETH YLCELLULOSE NA 0.5% SOLN,OPH INSTILL 1 DROP INTO EACH EYE FOUR TIMES A DAY FOR DRY EYE OPHTHA LMIC ACTIVE 12/25/2024 [id number] SOSA,LAC EY J 2023 45 [facility] GLIPIZIDE 5MG TAB TAKE ONE-HALF TABLET BY MOUTH ORAL ACTIVE D'ALESSAN KERI MIRANDA G [facility] LEVOTHYROXI NE NA 125MCG TAB (SYNTHROID) TAKE ONE TABLET BY MOUTH QD ORAL ACTIVE D'ALESSAN KERI MIRANDA G 2023 [facility] LISINOPRIL 10MG TAB TAKE ONE TABLET BY MOUTH ONCE DAILY ORAL ACTIVE D'ALESSAN RUBENKERI CASAREZ G 2023 [facility] PRAVASTATIN NA 40MG TAB TAKE ONE TABLET BY MOUTH AT BEDTIME ORAL ACTIVE PRASHANT DAN 2009 [facility] [place] [facility] Immunizations Combined list of available immunizations from the Department of Defense and Veterans Affairs facilities. Immunization Series Date Given Administered By Site Reaction Lot Number CVX Code Drug Correspondence Analyst Status Comments Source INFLUENZA, UNSPECIFIED FORMULATION 2023 88 complet ed [facility] [place] [facility] INFLUENZA, UNSPECIFIED FORMULATION 2021 88 complet ed [facility] COVID-19 (MODERNA), MRNA, LNP-S, PF, 100 MCG OR 50 MCG DOSE 3 2020 207 complet ed MOD; [id number]; 2 [facility] COVID-19 (MODERNA), MRNA, LNP-S, PF, 100 MCG/0.5 ML DOSE 2 2020 207 complet ed MOD; [id number]; 1 [facility] COVID-19 (MODERNA), MRNA, LNP-S, PF, 100 MCG/0.5 ML DOSE 1 2020 207 complet ed MOD; [id number]; 1 [facility] [...] [facility] FLU,3 YRS (HISTORICAL) 2008 [facility] PNEUMOCOCCAL, UNSPECIFIED FORMULATION 2003 109 complet [facility] Results Combined list of recent [...] Aug 09, 2022 09:43 AM Reporting Lab: [facility] [address] [facility] [address] Performing Lab: [facility] [address] [facility] [address] [facility] HEMOGLOBI N A1C PANEL HEMOGLOBIN A1C/HEMOGLO [...] Aug 09, 2022 09:43 AM Reporting Lab: [facility] [address] [facility] [address] Performing Lab: [facility] [address] [facility] [address] [facility] BASIC METABOLIC PANEL (non-fast ing) UREA NITROGEN [MASS/VOLUM E] IN SERUM OR PLASMA 27 mg/dL 7 - 25 08/09 H Specimen Type: SERUM Comment: BUN Verified by repeat analysis. Ordering Provider: SKYLAR ARRIOLA Report Released Date/Time: Aug 09, 2022 09:43 AM Reporting Lab: [facility] [address] [address] Performing Lab: [facility] [address] [address] [facility] BASIC METABOLIC PANEL (non-fast ing) GLUCOSE [MASS/VOLUM E] IN SERUM OR PLASMA 126 mg/dL 65 - 100 08/09 H Specimen Type: SERUM Comment: BUN Verified by repeat analysis. Ordering Provider: SKYLAR ARRIOLA Report Released Date/Time: Aug 09, 2022 09:43 AM Reporting Lab: [facility] [address] [address] Performing Lab: [facility] [address] [address] [facility] BASIC METABOLIC PANEL (non-fast ing) SODIUM [MOLES/VOLU ME] IN SERUM OR PLASMA 142 mmol/L 135 - 145 08/09 Specimen Type: SERUM Comment: BUN Verified by repeat analysis. Ordering Provider: SKYLAR ARRIOLA Report Released Date/Time: Aug 09, 2022 09:43 AM Reporting Lab: [facility] [address] [address] Performing Lab: [facility] [address] [address] [facility] BASIC METABOLIC PANEL (non-fast ing) POTASSIUM [MOLES/VOLU ME] IN SERUM OR PLASMA 4.6 mmol/L 3.5 - 5.0 08/09 Specimen Type: SERUM Comment: BUN Verified by repeat analysis. Ordering Provider: SKYLAR ARRIOLA Report Released Date/Time: Aug 09, 2022 09:43 AM Reporting Lab: [facility] [address] [address] Performing Lab: [facility] [address] [facility] [address] [facility] BASIC METABOLIC PANEL (non-fast ing) CHLORIDE [MOLES/VOLU ME] IN SERUM OR PLASMA 105 mmol/L 100 - 110 08/09 Specimen Type: SERUM Comment: BUN Verified by repeat analysis. Ordering Provider: SKYLAR ARRIOLA Report Released Date/Time: Aug 09, 2022 09:43 AM Reporting Lab: [facility] [address] [address] Performing Lab: [address] [address] [facility] BASIC METABOLIC PANEL (non-fast ing) CARBON DIOXIDE, TOTAL [MOLES/VOLU ME] IN SERUM OR PLASMA 26 meq/L 20 - 30 08/09 Specimen Type: SERUM Comment: BUN Verified by repeat analysis. Ordering Provider: SKYLAR ARRIOLA Report Released Date/Time: Aug 09, 2022 09:43 AM Reporting Lab: [address] [address] Performing Lab: [address] [address] [facility] BASIC METABOLIC PANEL (non-fast ing) CREATININE [MASS/VOLUM E] IN SERUM OR PLASMA 1.92 mg/dL 0.50 - 1.40 08/09 H Specimen Type: SERUM Comment: BUN Verified by repeat analysis. Ordering Provider: SKYLAR ARRIOLA Report Released Date/Time: Aug 09, 2022 09:43 AM Reporting Lab: [facility] [address] [address] Performing Lab: [facility] [address] [address] [facility] BASIC METABOLIC PANEL (non-fast ing) GLOMERULAR FILTRATION RATE/1.73 SQ M.PREDICTED [VOLUME RATE/AREA] IN SERUM, PLASMA OR BLOOD BY CREATININE- BASED FORMULA (CKD-EPI) 33 mL/min 60 08/09 L Specimen Type: SERUM Comment: BUN Verified by repeat analysis. Ordering Provider: SKYLAR ARRIOLA Report Released Date/Time: Aug 09, 2022 09:43 AM Reporting Lab: [facility] [place] [address] [address] Performing Lab: [facility] [place] [address] [address] [facility] TSH THYROTROPIN [UNITS/VOLU ME] IN SERUM OR PLASMA 11.71 u[IU]/ mL 0.35 - 5.00 08/09 H Specimen Type: SERUM Comment: BUN Verified by repeat analysis. Ordering Provider: SKYLAR ARRIOLA Report Released Date/Time: Aug 09, 2022 09:43 AM Reporting Lab: [facility] [place] [address] [address] Performing Lab: [facility] [place] [address] [address] [facility] [place] [facility] LIVER FUNCTION PROTEIN [MASS/VOLUM E] IN SERUM OR PLASMA 7.5 g/dL 6.0 - 8.3 08/09 Specimen Type: SERUM Comment: BUN Verified by repeat analysis. Ordering Provider: SKYLAR ARRIOLA Report Released Date/Time: Aug 09, 2022 09:43 AM Reporting Lab: [facility] [place] [address] [address] Performing Lab: [facility] [place] [address] [address] [facility] [place] [facility] LIVER FUNCTION ALBUMIN [MASS/VOLUM E] IN SERUM OR PLASMA 4.6 g/dL 3.5 - 5.0 08/09 Specimen Type: SERUM Comment: BUN Verified by repeat analysis. Ordering Provider: SKYLAR ARRIOLA Report Released Date/Time: Aug 09, 2022 09:43 AM Reporting Lab: [facility] [place] [address] [address] Performing Lab: [facility] [place] [facility] [address] [facility] [address] [facility] LIVER FUNCTION ALKALINE PHOSPHATASE [ENZYMATIC ACTIVITY/VO LUME] IN SERUM OR PLASMA 87 U/L 40 - 150 08/09 Specimen Type: SERUM Comment: BUN Verified by repeat analysis. Ordering Provider: SKYLAR ARRIOLA Report Released Date/Time: Aug 09, 2022 09:43 AM Reporting Lab: [facility] [place] [facility] [address] [facility] [address] Performing Lab: [facility] [place] [address] [address] [facility] [place] [facility] LIVER FUNCTION ASPARTATE AMINOTRANSF ERASE [ENZYMATIC ACTIVITY/VO LUME] IN SERUM OR PLASMA 34 U/L 5 - 34 08/09 Specimen Type: SERUM Comment: BUN Verified by repeat analysis. Ordering Provider: SKYLAR ARRIOLA Report Released Date/Time: Aug 09, 2022 09:43 AM Reporting Lab: [facility] [place] [address] [address] Performing Lab: [facility] [place] [address] [address] [facility] LIVER FUNCTION ALANINE AMINOTRANSF ERASE [ENZYMATIC ACTIVITY/VO LUME] IN SERUM OR PLASMA 35 U/L 6 - 55 08/09 Specimen Type: SERUM Comment: BUN Verified by repeat analysis. Ordering Provider: SKYLAR ARRIOLA Report Released Date/Time: Aug 09, 2022 09:43 AM Reporting Lab: [facility] [place] [address] [address] Performing Lab: [facility] [place] [address] [address] [facility] [place] [facility] LIVER FUNCTION BILIRUBIN.T OTAL [MASS/VOLUM E] IN SERUM OR PLASMA 0.6 mg/dL 0.2 - 1.2 08/09 Specimen Type: SERUM Comment: BUN Verified by repeat analysis. Ordering Provider: SKYLAR ARRIOLA Report Released Date/Time: Aug 09, 2022 09:43 AM Reporting Lab: [facility] [place] [address] [address] Performing Lab: [facility] [place] [address] [address] [facility] [place] [facility] CBC AND DIFF (AUTO) LEUKOCYTES [#/VOLUME] IN BLOOD BY AUTOMATED COUNT 9.01 10*3/u L 4.50 - 11.00 08/09 Specimen Type: BLOOD No comment entered. Ordering Provider: SKYLAR ARRIOLA Report Released Date/Time: Aug 09, 2022 09:43 AM Reporting Lab: [facility] [place] [address] [address] Performing Lab: [facility] [place] [address] [address] [facility] [place] [facility] CBC AND DIFF (AUTO) ERYTHROCYTE S [#/VOLUME] IN BLOOD BY AUTOMATED COUNT 3.97 10*6/u L 4.23 - 5.66 08/09 L Specimen Type: BLOOD No comment entered. Ordering Provider: SKYLAR ARRIOLA Report Released Date/Time: Aug 09, 2022 09:43 AM Reporting Lab: [facility] [place] [address] [address] Performing Lab: [facility] [place] [address] [address] [facility] [place] [facility] CBC AND DIFF (AUTO) HEMOGLOBIN [MASS/VOLUM E] IN BLOOD 14.1 g/dL 12.8 - 17 08/09 Specimen Type: BLOOD No comment entered. Ordering Provider: SKYLAR ARRIOLA Report Released Date/Time: Aug 09, 2022 09:43 AM Reporting Lab: [facility] [place] [address] [address] Performing Lab: [facility] [place] [address] [address] [facility] [place] [facility] CBC AND DIFF (AUTO) HEMATOCRIT [VOLUME FRACTION] OF BLOOD BY AUTOMATED COUNT 41.5 39.2 - 50.4 08/09 Specimen Type: BLOOD No comment entered. Ordering Provider: SKYLAR ARRIOLA Report Released Date/Time: Aug 09, 2022 09:43 AM Reporting Lab: [facility] [place] [facility] [address] [facility] [address] Performing Lab: [facility] [place] [facility] [address] [facility] [address] [facility] [place] [facility] CBC AND DIFF (AUTO) MCV [ENTITIC VOLUME] BY AUTOMATED COUNT 104.5 fL 82 - 99 08/09 H Specimen Type: BLOOD No comment entered. Ordering Provider: SKYLAR ARRIOLA Report Released Date/Time: Aug 09, 2022 09:43 AM Reporting Lab: [facility] [place] [address] [address] Performing Lab: [facility] [place] [address] [address] [facility] [place] [facility] CBC AND DIFF (AUTO) MCHC [MASS/VOLUM E] BY AUTOMATED COUNT 34.0 g/dL 30.8 - 35.1 08/09 Specimen Type: BLOOD No comment entered. Ordering Provider: SKYLAR ARRIOLA Report Released Date/Time: Aug 09, 2022 09:43 AM Reporting Lab: [facility] [place] [address] [address] Performing Lab: [facility] [place] [address] [address] [facility] [place] [facility] CBC AND DIFF (AUTO) PLATELETS [#/VOLUME] IN BLOOD BY AUTOMATED COUNT 174 10*3/u L 140 - 360 08/09 Specimen Type: BLOOD No comment entered. Ordering Provider: SKYLAR ARRIOLA Report Released Date/Time: Aug 09, 2022 09:43 AM Reporting Lab: [facility] [place] [facility] [address] [facility] [address] Performing Lab: [facility] [place] [facility] [address] [facility] [address] [facility] CBC AND DIFF (AUTO) ERYTHROCYTE DISTRIBUTIO N WIDTH [RATIO] BY AUTOMATED COUNT 13.2 12.0 - 16.0 08/09 Specimen Type: BLOOD No comment entered. Ordering Provider: SKYLAR ARRIOLA Report Released Date/Time: Aug 09, 2022 09:43 AM Reporting Lab: [facility] [place] [facility] [address] [facility] [address] Performing Lab: [facility] [place] [facility] [address] [facility] [address] [facility] CBC AND DIFF (AUTO) MONOCYTES [#/VOLUME] IN BLOOD BY AUTOMATED COUNT 0.55 10*3/u L 0.30 - 1.10 08/09 Specimen Type: BLOOD No comment entered. Ordering Provider: SKYLAR ARRIOLA Report Released Date/Time: Aug 09, 2022 09:43 AM Reporting Lab: [facility] [place] [facility] [address] [facility] [address] Performing Lab: [facility] [place] [facility] [address] [facility] [address] [facility] CBC AND DIFF (AUTO) MCH [ENTITIC MASS] BY AUTOMATED COUNT 35.5 pg 26.2 - 32.6 08/09 H Specimen Type: BLOOD No comment entered. Ordering Provider: SKYLAR ARRIOLA Report Released Date/Time: Aug 09, 2022 09:43 AM Reporting Lab: [facility] [place] [facility] [address] [facility] [address] Performing Lab: [facility] [place] [facility] [address] [facility] [address] [facility] CBC AND DIFF (AUTO) NEUTROPHILS /100 LEUKOCYTES IN BLOOD BY AUTOMATED COUNT 73.2 43.7 - 75.8 08/09 Specimen Type: BLOOD No comment entered. Ordering Provider: SKYLAR ARRIOLA Report Released Date/Time: Aug 09, 2022 09:43 AM Reporting Lab: [facility] [address] [facility] [address] Performing Lab: [facility] [address] [facility] [address] [facility] CBC AND DIFF (AUTO) LYMPHOCYTES /100 LEUKOCYTES IN BLOOD BY AUTOMATED COUNT 17.9 14.0 - 42.3 08/09 Specimen Type: BLOOD No comment entered. Ordering Provider: SKYLAR ARRIOLA Report Released Date/Time: Aug 09, 2022 09:43 AM Reporting Lab: [facility] [address] [facility] [address] Performing Lab: [facility] [address] [facility] [address] [facility] [place] [facility] CBC AND DIFF (AUTO) MONOCYTES/1 00 LEUKOCYTES IN BLOOD BY AUTOMATED COUNT 6.1 5.1 - 13.7 08/09 Specimen Type: BLOOD No comment entered. Ordering Provider: SKYLAR ARRIOLA Report Released Date/Time: Aug 09, 2022 09:43 AM Reporting Lab: [facility] [address] [facility] [address] Performing Lab: [facility] [address] [facility] [address] [facility] CBC AND DIFF (AUTO) EOSINOPHILS /100 LEUKOCYTES IN BLOOD BY AUTOMATED COUNT 2.0 0.4 - 6.8 08/09 Specimen Type: BLOOD No comment entered. Ordering Provider: SKYLAR ARRIOLA Report Released Date/Time: Aug 09, 2022 09:43 AM Reporting Lab: [facility] [address] [facility] [address] Performing Lab: [facility] [address] [facility] [address] [facility] [place] CBC AND DIFF (AUTO) BASOPHILS/1 00 LEUKOCYTES IN BLOOD BY AUTOMATED COUNT 0.6 0.1 - 2.0 08/09 Specimen Type: BLOOD No comment entered. Ordering Provider: SKYLAR ARRIOLA Report Released Date/Time: Aug 09, 2022 09:43 AM Reporting Lab: [facility] [place] [address] [address] Performing Lab: [facility] [place] [address] [address] [facility] [place] [facility] CBC AND DIFF (AUTO) NEUTROPHILS [#/VOLUME] IN BLOOD BY AUTOMATED COUNT 6.60 10*3/u L 2.20 - 7.60 08/09 Specimen Type: BLOOD No comment entered. Ordering Provider: SKYLAR ARRIOLA Report Released Date/Time: Aug 09, 2022 09:43 AM Reporting Lab: [facility] [place] [address] [address] Performing Lab: [facility] [place] [address] [address] [facility] [place] [facility] CBC AND DIFF (AUTO) LYMPHOCYTES [#/VOLUME] IN BLOOD BY AUTOMATED COUNT 1.61 10*3/u L 1.00 - 3.20 08/09 Specimen Type: BLOOD No comment entered. Ordering Provider: SKYLAR ARRIOLA Report Released Date/Time: Aug 09, 2022 09:43 AM Reporting Lab: [facility] [place] [facility] [address] [facility] [address] Performing Lab: [facility] [place] [address] [address] [facility] [place] [facility] CBC AND DIFF (AUTO) EOSINOPHILS [#/VOLUME] IN BLOOD BY AUTOMATED COUNT 0.18 10*3/u L 0.03 - 0.44 08/09 Specimen Type: BLOOD No comment entered. Ordering Provider: SKYLAR ARRIOLA Report Released Date/Time: Aug 09, 2022 09:43 AM Reporting Lab: [facility] [place] [facility] [address] [facility] [address] Performing Lab: [facility] [place] [facility] [address] [facility] [address] [facility] [place] [facility] CBC AND DIFF (AUTO) BASOPHILS [#/VOLUME] IN BLOOD BY AUTOMATED COUNT 0.05 10*3/u L 0.01 - 0.13 08/09 Specimen Type: BLOOD No comment entered. Ordering Provider: SKYLAR ARRIOLA Report Released Date/Time: Aug 09, 2022 09:43 AM Reporting Lab: [facility] [place] [facility] [address] [facility] [address] Performing Lab: [facility] [place] [facility] [address] [facility] [address] [facility] [place] [facility] CBC AND DIFF (AUTO) IMMATURE GRANULOCYTE S/100 LEUKOCYTES IN BLOOD BY AUTOMATED COUNT 0.2 0.0 - 0.7 08/09 Specimen Type: BLOOD No comment entered. Ordering Provider: SKYLAR ARRIOLA Report Released Date/Time: Aug 09, 2022 09:43 AM Reporting Lab: [facility] [place] [facility] [address] [facility] [address] Performing Lab: [facility] [place] [facility] [address] [facility] [address] [facility] [place] [facility] CBC AND DIFF (AUTO) IMMATURE GRANULOCYTE S [#/VOLUME] IN BLOOD 0.02 10*3/u L 0.00 - 0.06 08/09 Specimen Type: BLOOD No comment entered. Ordering Provider: SKYLAR ARRIOLA Report Released Date/Time: Aug 09, 2022 09:43 AM Reporting Lab: [facility] [place] [facility] [address] 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, left eye<br/ > SOSACHEStanford Júnior Bailey 12/18 [facility] En[facility] [id number] 12/21 [facility] FIT SPECTACLES MONOFOCAL [id number] Diagnos is: ICD-10- CM Z46.0 Encount er for fit/adj st of spectac les and contact lenses< br/> MARIANNA GIBSON 12/21 [facility] OFFICE O/P EST SF 10-19 MIN [id number] Diagnos is: ICD-10- CM E11.9 Type 2 diabete s mellitu s without complic ations< br/> Juan A MACHUCA 01/09 [facility] Outpatient Encounter [id number] 01/10 [facility] HEARING AID REPAIR/MOD IFYING [id number] Diagnos is: ICD-10- CM Z46.1 Encount er for fitting and adjustm ent of hearing aid<br/ > Huey PEREZ 01/16 [facility] REPAIR & ADJUST SPECTACLES [id number] Diagnos is: ICD-10- CM Z46.0 Encount er for fit/adj st of spectac les and contact lenses< br/> MARYLOU URIAS 01/19 [facility] Out[facility] Encounter [id number] 02/20 [facility] Out[facility] Encounter [id number] 04/23 [facility] OFFICE O/P EST LOW 20-29 MIN [id number] Diagnos is: ICD-10- CM E11.22 Type 2 diabete s mellitu s w diabeti c chronic kidney disease
SKYLAR LEMUS 05/03 [facility] HEARING AID REPAIR/MOD IFYING [id number] Diagnos is: ICD-10- CM H90.3 Sensori neural hearing loss, bilater al
SENIOR,JOHNSON OLE L 05/24 [facility] Out[facility] Encounter [id number] 06/01 [facility] OFFICE O/P EST SF 10 MIN [id number] Diagnos is: ICD-10- CM E11.9 Type 2 diabete s mellitu s without complic ations< br/> Juan A MACHUCA 06/06 [facility] En[facility] [id number] 09/24 [facility] Encounter [id number] 09/24 [facility] Encounter [id number] 10/22 [facility] Out[facility] Encounter [id number] Diagnos is: ICD-10- CM S46.911 A Strain unsp musc/fa sc/tend at shldr/u p arm, right arm, init
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
PICH,TOOTIE H 01/21 [facility] UNLISTED SPEC DERM SVC/PX [id number] 1. Diagnos is: ICD-10- CM Z13.89 Encount er for screeni ng for other disorde r
DARCIE HAIR ICA A 02/06 [facility] TRIM NAIL(S) [id number] 1. Diagnos is: ICD-10- CM E11.9 Type 2 diabete s mellitu s without complic ations< br/> VICENTE MANZANO GAMALIEL 02/06 [facility] Outpatient Encounter [id number] Diagnos is: ICD-10- CM L57.0 Actinic keratos is
MARY ARIAS PH J 02/07 [facility] Outpatient Encounter [id number] 02/07 [facility] Outpatient Encounter [id number] 02/10 [facility] OFFICE O/P EST MOD 30 MIN [id number] Diagnos is: ICD-10- CM E11.9 Type 2 diabete s mellitu s without complic ations< br/> KSYLAR LEMUS 04/17 [facility] Social History Combined list of available smoking, tobacco, and other social history from Department of Defense and Veterans Affairs facilities. Social History Type Response Date Comment Source Tobacco smoking status [facility] VA-TOBACCO USE FORMER CIGARETTES [facility]24 [facility] of tobacco use VA-TOBACCO NEVER USED 05/21/2018 [facility] History of tobacco use QUIT TOBACCO USE > 7 YEARS AGO 05/09/2017 quit 35 yrs ago [facility] History of tobacco use LIFETIME NON-TOBACCO USER 05/09/2016 [facility] History of tobacco use QUIT TOBACCO USE > 7 YEARS AGO 05/06/2015 pt states he stopped smoking 20 yrs ago [facility] History of tobacco use QUIT TOBACCO USE > 7 YEARS AGO 04/05/2009 QUIT 15 YEARS AGO [facility] Plan of Care List of future care activities from Department of [facility] Affairs facilities. Additional future care activities may be listed in the Assessment and Plan section. Date/Time Care Activity Care Activity Detail Facili ty 06/09/2024 AMBULATORY - MEDICINE AMBULATORY - MEDICI [facility] 09/23/2024 AMBULATORY - MEDICINE AMBULATORY - MEDICI [facility]
[2024-05-19 08:23] LABS: Prothrombin Time Whole Bld POC 38.6 sec (11.1-13.5); ~PT, ~INR - Anti Coag Clinic 3.2 (0.9-1.1)
--- NOTE | 2024-05-19 08:33 | MHC.OFFVISCO ---
Intake Intake Visit Reasons: Anticoagulation Allergies hydralazine [Hydralazine] Allergy (Unknown, Verified 05/19/24 08:11) SEVERE HEADACHE Medication List - Last Reconciled 05/19/24 by Elisa Jon RN ascorbic acid (vitamin C) PO DAILY blood sugar diagnostic As directed blood sugar diagnostic (OneTouch Ultra Test strips) 1 strip miscellaneous BID 1 month bumetanide 1 mg PO Q OTHER DAY 90 days glipizide ER 2.5 mg PO DAILY 90 days lancets One Touch Ultra Test Strips As directed to test blood sugar twice a day. Ninety day supply lancets (OneTouch UltraSoft 2 Lancet) As directed levothyroxine 125 mcg PO DAILY lisinopril 5 mg PO DAILY 90 days multivitamin (Daily Multi-Vitamin) PO pravastatin 40 mg PO DAILY tamsulosin 0.4 mg PO BEDTIME 30 days warfarin 4 mg See Protocol PO DAILY Nursing Note INR: 3.2 ALMOST therapeutic range Medications and supplements reviewed- using topical muscle pain relief right flank pain, palpable Knot of some kind - not sure if muscular or tendon - pt had xray -waiting for ressults Denies any signs and symptoms of bleeding or bruising or clotting. Bleeding, bruising, clotting discussed Nutritional guidance given - resume your weekly greens - have your spinach weekly Dose: keep same for now 2mg x 1 day/ 4mg x 6 days F/U INR: 2 weeks Patient verbalizes understanding of instructions given Anti-Coag Initial Assessment Social Hx Patient Tobacco Use Status: Former Tobacco user alcohol intake: former Alcohol intake frequency: does not drink Coding Level of Care Code Est Patient Level 1 Diagnoses Current use of anticoagulant therapy Z79.01 Results AMB INR Fingerstick AMB INR Fingerstick 3.2 Last Edit by Elisa Jon RN on 05/19/24 08:23 manual entry Assessment & Plan Assessment & Plan (1) Current use of anticoagulant therapy: Comment: critical high INR Code(s): Z79.01 - 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
== END 2024-05-19 08:36 | disposition home or self-care (01) ==
LOC: HO.ACS 08:02
PROVIDERS: PCP Family Medicine; Visit Provider Internal Medicine
DX: Z79.01 Long term (current) use of anticoagulants (principal)

== ENCOUNTER → 2024-05-19 08:02 | Outpatient (BNVA) | payer BC, SELFPAY | PROVIDERS: PCP Family Medicine; Visit Provider Internal Medicine | DX: I48.0 Paroxysmal atrial fibrillation (principal); Z79.01 Long term (current) use of anticoagulants; Z51.81 Encounter for therapeutic drug level monitoring | CPT/HCPCS: 85610; 99211 ==

== ENCOUNTER 2024-06-02 08:04 | Outpatient (AMB) | payer BC, SELFPAY ==
--- NOTE | 2024-06-02 08:18 | MHC.OFFVISCO ---
Intake Intake Visit Reasons: Anticoagulation Allergies hydralazine [Hydralazine] Allergy (Unknown, Verified 06/02/24 08:04) SEVERE HEADACHE Medication List - Last Reconciled 06/02/24 by Elisa Jon RN ascorbic acid (vitamin C) PO DAILY blood sugar diagnostic As directed blood sugar diagnostic (OneTouch Ultra Test strips) 1 strip miscellaneous BID 1 month bumetanide 1 mg PO Q OTHER DAY 90 days glipizide ER 2.5 mg PO DAILY 90 days lancets One Touch Ultra Test Strips As directed to test blood sugar twice a day. Ninety day supply lancets (OneTouch UltraSoft 2 Lancet) As directed levothyroxine 125 mcg PO DAILY lisinopril 5 mg PO DAILY 90 days multivitamin (Daily Multi-Vitamin) PO pravastatin 40 mg PO DAILY tamsulosin 0.4 mg PO BEDTIME 30 days warfarin 4 mg See Protocol PO DAILY Nursing Note INR: 2.8 in therapeutic range Medications and supplements reviewed right arm skin tear size of dime with scab - enc bacitricin or neosporin but to call md if becomes red and swollen Denies any signs and symptoms of bleeding or bruising or clotting. Bleeding, bruising, clotting discussed Nutritional guidance given Dose: 2mg x 1 day/ 4mg x 6 days F/U INR: 3 weeks Patient verbalizes understanding of instructions given Anti-Coag Initial Assessment Social Hx Patient Tobacco Use Status: Former Tobacco user alcohol intake: former Alcohol intake frequency: does not drink Coding Level of Care Code Est Patient Level 1 Diagnoses Current use of anticoagulant therapy Z79.01 Results AMB INR Fingerstick AMB INR Fingerstick 2.8 Last Edit by Elisa Jon RN on 06/02/24 08:14 manual entry Assessment & Plan Assessment & Plan (1) Current use of anticoagulant therapy: Comment: critical high INR Code(s): Z79.01 - superintendent terminal (current) use of 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
[2024-06-02 08:32] LABS: Prothrombin Time Whole Bld POC 34.1 sec (11.1-13.5); ~PT, ~INR - Anti Coag Clinic 2.8 (0.9-1.1)
--- OUTSIDE RECORDS SUMMARY | 2024-06-02 12:34 | XMS_ITS | Clinical Summary ---
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 10/09/2022 Active amLODIPine (NORVASC) 5 MG tablet Take 5 mg by mouth 1 (one) time each day 10/09/2022 Active ezetimibe (ZETIA) 10 MG tablet Take 1 tablet by mouth 1 (one) time each day 08/13/2022 Active levothyroxine (SYNTHROID, LEVOTHROID) 150 MCG tablet Take 137 mcg by mouth 1 (one) time each day 09/13/2022 Active lisinopril 10 MG tablet Take 10 mg by mouth 1 (one) time each day 10/09/2022 Active Jantoven 2 MG tablet Take 2 mg by mouth 1 (one) time each day 10/30/2022 Active glipiZIDE (GLUCOTROL XL) 2.5 MG 24 hr tablet Take 2.5 mg by mouth 1 (one) time each day 09/26/2022 Active Active Problems Problem Noted Date Diagnosed Date Cervicalgia 02/07/2023 02/07/2023 Cellulitis of right toe 02/07/2023 02/08/20 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 02/07/2023 02/07/2023 Overview (02/07/2023): Aug 24, 2021 Entered By: SKYLAR GREGORY Comment: stable creat level approx 1.5 over past year ( 2021) Renal osteodystrophy 02/07/2023 Essential (primary) hypertension 06/29/2021 Acute kidney failure 06/29/2021 Stage 3a chronic kidney disease 06/29/2021 Hypertension 06/29/2021 Abnormal vision 05/07/2019 02/07/2023 Overview (02/07/2023): May 20, 2019 Entered By: MC DAN Comment: followed by optometry Benign prostatic hyperplasia without outflow obs truction 05/07/2018 Overview (02/07/2023): May 21, 2018 Entered By: MC DAN Comment: treated with finasteride Encounters Date Type Department Care Team Description 03/19/2024 Office Communication [facility] [address] [address] Cynthia Laws from Last 3 Months Family History Medical History Relation Comments Cancer Child Cancer Father Hypertension Mother Relation Status Comments Brother Child Alive Father Mother Sister Social History Tobacco Use Types Packs/Day Years Used Date Smoking Tobacco: Former Smokeless Tobacco: Never Tobacco Cessation:Counseling Given: Not Answered Alcohol Use Standard Drinks/Week Comments Not Currently 0 (1 standard drink = 0.6 oz pur e alcohol) Sex and Gender Information Value Date Recorded Sex Assigned at Not on file Legal Sex Male 3:38 PM EST Gender Identity Not on file Sexual Orientation Not on file Last Filed Vital Signs Vital Sign Reading Time Taken Comments Blood Pressure 120/65 02/07/2023 1:50 PM EDT Pulse 86 02/07/2023 1:50 PM EDT Temperature - - Respiratory Rate - - Oxygen Saturation 99% 02/07/2023 1:50 PM EDT Inhaled Oxygen Concentration - - Weight 81.1 kg (178 lb 12.8 oz) 11/01/2022 1:19 PM EDT Height - - Body Mass Index - - Plan of Treatment Health Maintenance Due Date Last Done Comments Pneumococcal Vaccine: 65+ Years (2 of 2 - PPSV23 or PCV20) 07/04/2016 05/09/2016, 05/07/2003 Diabetes: Hemoglobin A1C 02/07/2023 Diabetes: Pedal Pulse Checked 02/07/2023 Diabetes: Sensory Foot Exam 02/07/2023 Diabetes: Visual Foot Exam 02/07/2023 Diabetes: Ophthalmology Exam 12/19/2023, 07/21/2022, 12/13/2021 Influenza Vaccine (#1) 2024 , 01/06/2020, 02/05/2016, Additional history exists Hepatitis B Vaccine Aged Out No longe r eligible based on patient's age to complete this topic Insurance [place] [address] Care Teams Sizing Machine And Drier Operator Relationship Specialty Start Date End Date Patrick Muniz MD [address] [address] PCP - General Family Medicine 04/19/21
--- OUTSIDE RECORDS SUMMARY | 2024-06-02 12:34 | XMS_ITS | Continuity of Care Document ---
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) Active 05/07/19 19 Condition May 21, 2018 Entered By: MC DAN Comment: treated with finasteride [facility] Essential hypertension Active 05/07/19 09 Condition [facility] Hearing loss (SNOMED CT 08925994) Active 05/07/19 09 Condition [facility] HLD - Hyperlipidemia Active 05/07/19 09 Condition [facility] Hypothyroidism (SNOMED CT 05659860) Active 05/07/19 09 Condition [facility] [place] [facility] Diabetes Mellitus Type 2 (SCT 35100954) Active Condition Apr 17, 2024 Entered By: SKYLAR GREGORY Comment: vet under care of community PCP/ Dr Sheldon Muniz- good glycemic control [facility] History of actinic keratosis Active Condition Feb 08, 2024 Entered By: SKYLAR GREGORY Comment: see tele derm-lesions on right side of face/ vet needs cryotx per derm [facility] Low Back Pain (SCT 750934110) Active Condition Oct 26, 2021 Entered By: [...] Diagnosis: ICD-10-CM L57.0 Actinic keratosis Active Diagnosis [facility] Diagnosis: ICD-10-CM Z13.89 Encounter for screening for [...] aid Active Diagnosis [facility] [place] [facility] Medications Combined list of outpatient [...] ORAL ACTIVE D'ALESSAN KERI MIRANDA G 2023 [facility] BUMETANIDE 1MG TAB TAKE ONE TABLET BY MOUTH ONCE DAILY ORAL ACTIVE D'ALESSAN RUBENKERI G 2023 [facility] CARBOXYMETH YLCELLULOSE NA 0.5% SOLN,OPH INSTILL 1 DROP INTO EACH EYE FOUR TIMES A DAY FOR DRY EYE OPHTHA LMIC ACTIVE 12/25/2024 [id number] SOSA,LAC EY J 2023 45 [facility] GLIPIZIDE 5MG TAB TAKE ONE-HALF TABLET BY MOUTH ORAL ACTIVE D'ALESSAN KERI MIRANDA G 2023 [facility] LEVOTHYROXI NE NA 125MCG TAB (SYNTHROID) TAKE ONE TABLET BY MOUTH QD ORAL ACTIVE D'ALESSAN KERI MIRANDA G 2023 [facility] LISINOPRIL 10MG TAB TAKE ONE TABLET BY MOUTH ONCE DAILY ORAL ACTIVE D'ALESSAN RUBENKERI CASAREZ G 2023 [facility] PRAVASTATIN NA 40MG TAB TAKE ONE TABLET BY MOUTH AT BEDTIME ORAL ACTIVE PRASHANT DAN 2009 [facility] [place] [facility] [facility] Immunizations Combined list of available immunizations from the Department of Defense and Veterans Affairs facilities. Immunization Series Date Given Administered By Site Reaction Lot Number CVX Code Drug Leasing Consultant Status Comments Source INFLUENZA, UNSPECIFIED FORMULATION 2023 88 complet ed [facility] [place] [facility] INFLUENZA, UNSPECIFIED FORMULATION 2021 88 complet ed [facility] COVID-19 (MODERNA), MRNA, LNP-S, PF, 100 MCG OR 50 MCG DOSE 3 2020 207 complet ed MOD; [id number]; 2 [facility] COVID-19 (MODERNA), MRNA, LNP-S, PF, 100 MCG/0.5 ML DOSE 2 2020 207 complet ed MOD; [id number]; 1 [facility] COVID-19 (MODERNA), MRNA, LNP-S, PF, 100 MCG/0.5 ML DOSE 1 2020 207 complet ed MOD; [id number]; 1 [facility] [...] [facility] FLU,3 YRS (HISTORICAL) 2008 [facility] [place] [facility] PNEUMOCOCCAL, UNSPECIFIED FORMULATION 2003 109 complet ed [facility] [place] [facility] Results Combined list of recent [...] Aug 09, 2022 09:43 AM Reporting Lab: [address] [address] Performing Lab: [address] [address] [facility] BASIC METABOLIC PANEL (non-fast ing) GLUCOSE [MASS/VOLUM E] IN SERUM OR PLASMA 126 mg/dL 65 - 100 08/09 H Specimen Type: SERUM Comment: BUN Verified by repeat analysis. Ordering Provider: SKYLAR ARRIOLA Report Released Date/Time: Aug 09, 2022 09:43 AM Reporting Lab: [address] [address] Performing Lab: [address] [address] [facility] BASIC METABOLIC PANEL (non-fast ing) SODIUM [MOLES/VOLU ME] IN SERUM OR PLASMA 142 mmol/L 135 - 145 08/09 Specimen Type: SERUM Comment: BUN Verified by repeat analysis. Ordering Provider: SKYLAR ARRIOLA Report Released Date/Time: Aug 09, 2022 09:43 AM Reporting Lab: [address] [address] Performing Lab: [facility] [address] [facility] [facility] [address] [facility] BASIC METABOLIC PANEL (non-fast ing) POTASSIUM [MOLES/VOLU ME] IN SERUM OR PLASMA 4.6 mmol/L 3.5 - 5.0 08/09 Specimen Type: SERUM Comment: BUN Verified by repeat analysis. Ordering Provider: SKYLAR ARRIOLA Report Released Date/Time: Aug 09, 2022 09:43 AM Reporting Lab: [facility] [address] [address] Performing Lab: [facility] [address] [address] [facility] BASIC METABOLIC PANEL (non-fast ing) CHLORIDE [MOLES/VOLU ME] IN SERUM OR PLASMA 105 mmol/L 100 - 110 08/09 Specimen Type: SERUM Comment: BUN Verified by repeat analysis. Ordering Provider: SKYLAR ARRIOLA Report Released Date/Time: Aug 09, 2022 09:43 AM Reporting Lab: [address] [address] Performing Lab: [address] [address] [facility] BASIC METABOLIC PANEL (non-fast ing) CARBON DIOXIDE, TOTAL [MOLES/VOLU ME] IN SERUM OR PLASMA 26 meq/L 20 - 30 08/09 Specimen Type: SERUM Comment: BUN Verified by repeat analysis. Ordering Provider: SKYLAR ARRIOLA Report Released Date/Time: Aug 09, 2022 09:43 AM Reporting Lab: [facility] [address] [address] Performing Lab: [facility] [address] [address] [facility] BASIC METABOLIC PANEL (non-fast ing) CREATININE [MASS/VOLUM E] IN SERUM OR PLASMA 1.92 mg/dL 0.50 - 1.40 08/09 H Specimen Type: SERUM Comment: BUN Verified by repeat analysis. Ordering Provider: SKYLAR ARRIOLA Report Released Date/Time: Aug 09, 2022 09:43 AM Reporting Lab: [facility] [place] [address] [address] Performing Lab: [facility] [place] [address] [address] [facility] [place] [facility] BASIC METABOLIC PANEL (non-fast ing) GLOMERULAR FILTRATION RATE/1.73 SQ M.PREDICTED [VOLUME RATE/AREA] IN SERUM, PLASMA OR BLOOD BY CREATININE- BASED FORMULA (CKD-EPI) 33 mL/min 60 08/09 L Specimen Type: SERUM Comment: BUN Verified by repeat analysis. Ordering Provider: SKYLAR ARRIOLA Report Released Date/Time: Aug 09, 2022 09:43 AM Reporting Lab: [facility] [place] [address] [address] Performing Lab: [facility] [place] [address] [address] [facility] [place] [facility] CBC AND DIFF (AUTO) LEUKOCYTES [#/VOLUME] IN BLOOD BY AUTOMATED COUNT 9.01 10*3/u L 4.50 - 11.00 08/09 Specimen Type: BLOOD No comment entered. Ordering Provider: SKYLAR ARRIOLA Report Released Date/Time: Aug 09, 2022 09:43 AM Reporting Lab: [facility] [place] [address] [address] Performing Lab: [facility] [place] [address] [address] [facility] [place] [facility] CBC AND DIFF (AUTO) ERYTHROCYTE S [#/VOLUME] IN BLOOD BY AUTOMATED COUNT 3.97 10*6/u L 4.23 - 5.66 08/09 L Specimen Type: BLOOD No comment entered. Ordering Provider: SKYLAR ARRIOLA Report Released Date/Time: Aug 09, 2022 09:43 AM Reporting Lab: [facility] [place] [facility] [address] [facility] [address] Performing Lab: [facility] [place] [facility] [address] [facility] [address] [facility] [place] [facility] CBC AND DIFF (AUTO) HEMOGLOBIN [MASS/VOLUM E] IN BLOOD 14.1 g/dL 12.8 - 17 08/09 Specimen Type: BLOOD No comment entered. Ordering Provider: SKYLAR ARRIOLA Report Released Date/Time: Aug 09, 2022 09:43 AM Reporting Lab: [facility] [place] [facility] [address] [facility] [address] Performing Lab: [facility] [place] [facility] [address] [facility] [facility] [address] [facility] [place] [facility] CBC AND DIFF (AUTO) HEMATOCRIT [VOLUME FRACTION] OF BLOOD BY AUTOMATED COUNT 41.5 39.2 - 50.4 08/09 Specimen Type: BLOOD No comment entered. Ordering Provider: SKYLAR ARRIOLA Report Released Date/Time: Aug 09, 2022 09:43 AM Reporting Lab: [facility] [place] [facility] [address] [facility] [facility] [address] Performing Lab: [facility] [place] [facility] [address] [facility] [address] [facility] [place] [facility] CBC AND DIFF (AUTO) MCV [ENTITIC VOLUME] BY AUTOMATED COUNT 104.5 fL 82 - 99 08/09 H Specimen Type: BLOOD No comment entered. Ordering Provider: SKYLAR ARRIOLA Report Released Date/Time: Aug 09, 2022 09:43 AM Reporting Lab: [facility] [place] [facility] [address] [facility] [facility] [address] Performing Lab: [facility] [place] [facility] [address] [facility] [address] [facility] [place] [facility] CBC AND DIFF (AUTO) MCHC [MASS/VOLUM E] BY AUTOMATED COUNT 34.0 g/dL 30.8 - 35.1 08/09 Specimen Type: BLOOD No comment entered. Ordering Provider: SKYLAR ARRIOLA Report Released Date/Time: Aug 09, 2022 09:43 AM Reporting Lab: [facility] [address] [facility] [facility] [address] Performing Lab: [facility] [address] [facility] [address] [facility] CBC AND DIFF (AUTO) PLATELETS [#/VOLUME] IN BLOOD BY AUTOMATED COUNT 174 10*3/u L 140 - 360 08/09 Specimen Type: BLOOD No comment entered. Ordering Provider: SKYLAR ARRIOLA Report Released Date/Time: Aug 09, 2022 09:43 AM Reporting Lab: [facility] [place] [facility] [address] [facility] [facility] [address] Performing Lab: [facility] [place] [address] [address] [facility] CBC AND DIFF (AUTO) ERYTHROCYTE DISTRIBUTIO N WIDTH [RATIO] BY AUTOMATED COUNT 13.2 12.0 - 16.0 08/09 Specimen Type: BLOOD No comment entered. Ordering Provider: SKYLAR ARRIOLA Report Released Date/Time: Aug 09, 2022 09:43 AM Reporting Lab: [facility] [place] [facility] [address] [facility] [facility] [address] Performing Lab: [facility] [place] [facility] [address] [facility] [facility] [address] [facility] CBC AND DIFF (AUTO) MONOCYTES [#/VOLUME] IN BLOOD BY AUTOMATED COUNT 0.55 10*3/u L 0.30 - 1.10 08/09 Specimen Type: BLOOD No comment entered. Ordering Provider: SKYLAR ARRIOLA Report Released Date/Time: Aug 09, 2022 09:43 AM Reporting Lab: [facility] [place] [facility] [address] [facility] [facility] [address] Performing Lab: [facility] [address] [place] [address] [facility] CBC AND DIFF (AUTO) MCH [ENTITIC MASS] BY AUTOMATED COUNT 35.5 pg 26.2 - 32.6 08/09 H Specimen Type: BLOOD No comment entered. Ordering Provider: SKYLAR ARRIOLA Report Released Date/Time: Aug 09, 2022 09:43 AM Reporting Lab: [facility] [place] [address] [address] Performing Lab: [facility] [place] [facility] [address] [facility] [facility] [address] [facility] CBC AND DIFF (AUTO) NEUTROPHILS /100 LEUKOCYTES IN BLOOD BY AUTOMATED COUNT 73.2 43.7 - 75.8 08/09 Specimen Type: BLOOD No comment entered. Ordering Provider: SKYLAR ARRIOLA Report Released Date/Time: Aug 09, 2022 09:43 AM Reporting Lab: [facility] [place] [address] [address] Performing Lab: [facility] [place] [address] [address] [facility] CBC AND DIFF (AUTO) LYMPHOCYTES /100 LEUKOCYTES IN BLOOD BY AUTOMATED COUNT 17.9 14.0 - 42.3 08/09 Specimen Type: BLOOD No comment entered. Ordering Provider: SKYLAR ARRIOLA Report Released Date/Time: Aug 09, 2022 09:43 AM Reporting Lab: [facility] [place] [address] [address] Performing Lab: [facility] [place] [address] [address] [facility] [place] CBC AND DIFF (AUTO) MONOCYTES/1 00 LEUKOCYTES IN BLOOD BY AUTOMATED COUNT 6.1 5.1 - 13.7 08/09 Specimen Type: BLOOD No comment entered. Ordering Provider: SKYLAR ARRIOLA Report Released Date/Time: Aug 09, 2022 09:43 AM Reporting Lab: [facility] [place] [address] [address] Performing Lab: [facility] [place] [facility] [address] [facility] [address] [facility] [place] [facility] CBC AND DIFF (AUTO) EOSINOPHILS /100 LEUKOCYTES IN BLOOD BY AUTOMATED COUNT 2.0 0.4 - 6.8 08/09 Specimen Type: BLOOD No comment entered. Ordering Provider: SKYLAR ARRIOLA Report Released Date/Time: Aug 09, 2022 09:43 AM Reporting Lab: [facility] [place] [facility] [address] [facility] [facility] [address] Performing Lab: [facility] [place] [facility] [address] [facility] [address] [facility] [place] [facility] CBC AND DIFF (AUTO) BASOPHILS/1 00 LEUKOCYTES IN BLOOD BY AUTOMATED COUNT 0.6 0.1 - 2.0 08/09 Specimen Type: BLOOD No comment entered. Ordering Provider: SKYLAR ARRIOLA Report Released Date/Time: Aug 09, 2022 09:43 AM Reporting Lab: [facility] [place] [facility] [address] [facility] [facility] [address] Performing Lab: [facility] [place] [facility] [address] [facility] [facility] [address] [facility] [place] [facility] CBC AND DIFF (AUTO) NEUTROPHILS [#/VOLUME] IN BLOOD BY AUTOMATED COUNT 6.60 10*3/u L 2.20 - 7.60 08/09 Specimen Type: BLOOD No comment entered. Ordering Provider: SKYLAR ARRIOLA Report Released Date/Time: Aug 09, 2022 09:43 AM Reporting Lab: [facility] [place] [facility] [address] [facility] [facility] [address] Performing Lab: [facility] [place] [address] [address] [facility] CBC AND DIFF (AUTO) LYMPHOCYTES [#/VOLUME] IN BLOOD BY AUTOMATED COUNT 1.61 10*3/u L 1.00 - 3.20 08/09 Specimen Type: BLOOD No comment entered. Ordering Provider: SKYLAR ARRIOLA Report Released Date/Time: Aug 09, 2022 09:43 AM Reporting Lab: [facility] [address] [facility] [address] Performing Lab: [facility] [address] [facility] [address] [facility] [place] CBC AND DIFF (AUTO) EOSINOPHILS [#/VOLUME] IN BLOOD BY AUTOMATED COUNT 0.18 10*3/u L 0.03 - 0.44 08/09 Specimen Type: BLOOD No comment entered. Ordering Provider: SKYLAR ARRIOLA Report Released Date/Time: Aug 09, 2022 09:43 AM Reporting Lab: [facility] [place] [address] [address] Performing Lab: [facility] [place] [address] [address] [facility] CBC AND DIFF (AUTO) BASOPHILS [#/VOLUME] IN BLOOD BY AUTOMATED COUNT 0.05 10*3/u L 0.01 - 0.13 08/09 Specimen Type: BLOOD No comment entered. Ordering Provider: SKYLAR ARRIOLA Report Released Date/Time: Aug 09, 2022 09:43 AM Reporting Lab: [facility] [place] [address] [address] Performing Lab: [facility] [place] [address] [address] [facility] CBC AND DIFF (AUTO) IMMATURE GRANULOCYTE S/100 LEUKOCYTES IN BLOOD BY AUTOMATED COUNT 0.2 0.0 - 0.7 08/09 Specimen Type: BLOOD No comment entered. Ordering Provider: SKYLAR ARRIOLA Report Released Date/Time: Aug 09, 2022 09:43 AM Reporting Lab: [facility] [place] [address] [address] Performing Lab: [facility] [place] [address] [address] [facility] CBC AND DIFF (AUTO) IMMATURE GRANULOCYTE S [#/VOLUME] IN BLOOD 0.02 10*3/u L 0.00 - 0.06 08/09 Specimen Type: BLOOD No comment entered. Ordering Provider: SKYLAR ARRIOLA Report Released Date/Time: Aug 09, 2022 09:43 AM Reporting Lab: [address] [address] Performing Lab: [address] [address] [facility] HEMOGLOBI N A1C PANEL HEMOGLOBIN A1C/HEMOGLO [...] Aug 09, 2022 09:43 AM Reporting Lab: [address] [address] Performing Lab: [address] [address] [facility] LIVER FUNCTION PROTEIN [MASS/VOLUM E] IN SERUM OR PLASMA 7.5 g/dL 6.0 - 8.3 08/09 Specimen Type: SERUM Comment: BUN Verified by repeat analysis. Ordering Provider: SKYLAR ARRIOLA Report Released Date/Time: Aug 09, 2022 09:43 AM Reporting Lab: [address] [address] Performing Lab: [address] [address] [facility] LIVER FUNCTION ALBUMIN [MASS/VOLUM E] IN SERUM OR PLASMA 4.6 g/dL 3.5 - 5.0 08/09 Specimen Type: SERUM Comment: BUN Verified by repeat analysis. Ordering Provider: SKYLAR ARRIOLA Report Released Date/Time: Aug 09, 2022 09:43 AM Reporting Lab: [facility] [place] [address] [address] Performing Lab[facility] [place] [facility] [address] [facility] [address] [facility] [facility] LIVER FUNCTION ALKALINE PHOSPHATASE [ENZYMATIC ACTIVITY/VO LUME] IN SERUM OR PLASMA 87 U/L 40 - 150 08/09 Specimen Type: SERUM Comment: BUN Verified by repeat analysis. Ordering Provider: SKYLAR ARRIOLA Report Released Date/Time: Aug 09, 2022 09:43 AM Reporting Lab: [facility] [place] [address] [address] Performing Lab: [facility] [place] [address] [address] [facility] [place] [facility] LIVER FUNCTION ASPARTATE AMINOTRANSF ERASE [ENZYMATIC ACTIVITY/VO LUME] IN SERUM OR PLASMA 34 U/L 5 - 34 08/09 Specimen Type: SERUM Comment: BUN Verified by repeat analysis. Ordering Provider: SKYLAR ARRIOLA Report Released Date/Time: Aug 09, 2022 09:43 AM Reporting Lab: [facility] [place] [address] [address] Performing Lab: [facility] [place] [address] [address] [facility] [facility] LIVER FUNCTION ALANINE AMINOTRANSF ERASE [ENZYMATIC ACTIVITY/VO LUME] IN SERUM OR PLASMA 35 U/L 6 - 55 08/09 Specimen Type: SERUM Comment: BUN Verified by repeat analysis. Ordering Provider: SKYLAR ARRIOLA Report Released Date/Time: Aug 09, 2022 09:43 AM Reporting Lab: [facility] [place] [address] [address] Performing Lab: [facility] [place] [facility] [address] [facility] [address] [facility] [place] [facility] LIVER FUNCTION BILIRUBIN.T OTAL [MASS/VOLUM E] IN SERUM OR PLASMA 0.6 mg/dL 0.2 - 1.2 08/09 Specimen Type: SERUM Comment: BUN Verified by repeat analysis. Ordering Provider: SKYLAR ARRIOLA Report Released Date/Time: Aug 09, 2022 09:43 AM Reporting Lab: [facility] [place] [facility] [address] [facility] [address] Performing Lab: [facility] [place] [facility] [address] [facility] [address] [facility] [place] [facility] THYROID T4 FREE(FT4) THYROXINE (T4) FREE [MASS/VOLUM E] IN SERUM OR PLASMA 0.66 ng/dL 0.6 - 1.6 08/09 Specimen Type: SERUM No comment entered. Ordering Provider: SKYLAR ARRIOLA Report Released Date/Time: Aug 09, 2022 09:43 AM Reporting Lab: [facility] [place] [facility] [address] [facility] [address] Performing Lab: [facility] [place] [facility] [address] [facility] [address] [facility] [place] [facility] TSH THYROTROPIN [UNITS/VOLU ME] IN SERUM OR PLASMA 11.71 u[IU]/ mL 0.35 - 5.00 08/09 H Specimen Type: SERUM Comment: BUN Verified by repeat analysis. Ordering Provider: SKYLAR ARRIOLA Report Released Date/Time: Aug 09, 2022 09:43 AM Reporting Lab: [facility] [place] [facility] [address] [facility] [address] Performing Lab: [facility] [place] [facility] [address] [facility] [address] [facility] [place] [facility] Vital Signs Combined list of inpatient and outpatient Vital Signs from Department of Defense and Veterans Affairs, ranging from 12 months to all on record, depending upon the facility. Vital Sign Value Date Comments Source SYSTOLIC BLOOD PRESSURE 131 04/17/20 24 10:06:11 [facility] [place] [facility] DIASTOLIC BLOOD PRESSURE 70 024 10:06:11 [facility] [place] [facility] PULSE OXIMETRY 97 04/17/2024 10[facility]06:11 [facility] WEIGHT 176 04/17/2024 10[facility]06:11 [facility] BMI 28kg/m2 04/17/2024 10:06:11 [facility] PAIN 0 04/17/2024 10:06:11 [facility] PULSE 63 04/17/2024 10:06:11 [facility] RESPIRATION 20 04/17/2024 10:06:11 [facility] [place] [facility] Encounters Combined list of: 1) Encounters from Department of Veterans Affairs facilities going back up to thelast 18 months. 2) Encounters from the Department of Defense facilities going back up to 280 months. 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, left eye<br/ > SOSA,LACE Y J 12/18 [facility] Outpatient Encounter [id number] 12/21 [facility] FIT SPECTACLES MONOFOCAL [id number] Diagnos is: ICD-10- CM Z46.0 Encount er for fit/adj st of spectac les and contact lenses< br/> MARIANNA GIBSON A 12/21 [facility] OFF[facility] O/P EST SF 10-19 MIN [id number] Diagnos is: ICD-10- CM E11.9 Type 2 diabete s mellitu s without complic ations< br/> Juan A MACHUCA 01/09 [facility] Out[facility] En[facility] [id number] 01/10 [facility] HEARING AID REPAIR/MOD IFYING [id number] Diagnos is: ICD-10- CM Z46.1 Encount er for fitting and adjustm ent of hearing aid<br/ > Heuy PEREZ 01/16 [facility] REPAIR & ADJUST SPECTACLES [id number] Diagnos is: ICD-10- CM Z46.0 Encount er for fit/adj st of spectac les and contact lenses< br/> MARYLOU URIAS 01/19 [facility] Out[facility] En[facility] [id number] 02/07 [facility] [id number] 02/20 [facility] En[facility] [id number] 04/23 [facility] OFF[facility] O/P EST LOW 20-29 MIN [id number] Diagnos is: ICD-10- CM E11.22 Type 2 diabete s mellitu s w diabeti c chronic kidney disease
SKYLAR LEMUS 05/03 [facility] HEARING AID REPAIR/MOD IFYING [id number] Diagnos is: ICD-10- CM H90.3 Sensori neural hearing loss, bilater al
SENIOR,JOHNSON OLE L 05/24 [facility] Encounter [id number] 06/01 [facility] OFFICE O/P EST SF 10 MIN [id number] Diagnos is: ICD-10- CM E11.9 Type 2 diabete s mellitu s without complic ations< br/> Juan A MACHUCA 06/06 [facility] Out[facility] Encounter [id number] 09/24 [facility] Encounter [id number] 09/24 [facility] Encounter [id number] 10/22 [facility] Out[facility] Encounter [id number] Diagnos is: ICD-10- CM S46.911 A Strain unsp musc/fa sc/tend at shldr/u p arm, right arm, init
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
TOOTIE REARDON H 01/21 [facility] UNLISTED SPEC DERM SVC/PX [id number] 1. Diagnos is: ICD-10- CM Z13.89 Encount er for screeni ng for other disorde r
DARCIE HAIR ICA A 02/06 [facility] TRIM NAIL(S) [id number] 1. Diagnos is: ICD-10- CM E11.9 Type 2 diabete s mellitu s without complic ations< br/> VICENTE MANZANO GAMALIEL 02/06 [facility] Outpatient Encounter [id number] Diagnos is: ICD-10- CM L57.0 Actinic keratos is
MARY ARIAS PH J 02/07 [facility] Outpatient Encounter [id number] 02/07 [facility] Outpatient Encounter [id number] 02/10 [facility] OFFICE O/P EST MOD 30 MIN [id number] Diagnos is: ICD-10- CM E11.9 Type 2 diabete s mellitu s without complic ations< br/> SKYLAR LEMUS 04/17 [facility] Social History Combined list of available smoking, tobacco, and other social history from Department of Defense and Veterans Affairs facilities. Social History Type Response Date Comment Source Tobacco smoking status [facility]-TO[facility] USE FORMER CIGARETTES 04/17/2024 [facility] [place] History of tobacco use GA-TOBACCO NEVER USED OTHER TYPE 04/17/2024 [facility] [place] [facility] History of tobacco use GA-TOBACCO FORMER USER 05/03/2023 [facility] [place] [facility] History of tobacco use VA-TOBACCO FORMER USER 10/26/2021 [facility] [place] [facility] History of tobacco use GA-TOBACCO FORMER USER 08/19/2020 [facility] [place] [facility] History of tobacco use GA-TOBACCO FORMER USER 05/21/2018 [facility] [place] [facility] History of tobacco use VA-TOBACCO NEVER USED 05/21/2018 [facility] [place] [facility] History of tobacco use QUIT TOBACCO USE > 7 YEARS AGO 05/09/2017 quit 35 yrs ago [facility] [place] [facility] History of tobacco use LIFETIME NON-TOBACCO USER 05/09/2016 [facility] [place] [facility] History of tobacco use QUIT TOBACCO USE > 7 YEARS AGO 05/06/2015 pt states he stopped smoking 20 yrs ago [facility] [place] [facility] History of tobacco use QUIT TOBACCO USE > 7 YEARS AGO 04/05/2009 QUIT 15 YEARS AGO [facility] [place] [facility] Plan of Care List of future care activities from Department of [facility] facilities. Additional future care activities may be listed in the Assessment and Plan section. Date/Time Care Activity Care Activity Detail Facili ty 06/09/2024 AMBUL[facility] MEDIC[facility]/23/2024 AM[facility]ULATORY - MEDICINE AMBULATORY - MEDICI NE [facility] 10/30/2024 AMBULATORY - MEDICINE AMBULATORY - MEDICI [facility]
== END 2024-06-02 08:23 | disposition home or self-care (01) ==
LOC: HO.ACS 08:04
PROVIDERS: PCP Family Medicine; Visit Provider Internal Medicine
DX: Z79.01 Long term (current) use of anticoagulants (principal)

== ENCOUNTER → 2024-06-02 08:04 | Outpatient (BNVA) | payer BC, SELFPAY | PROVIDERS: PCP Family Medicine; Visit Provider Internal Medicine | DX: I48.0 Paroxysmal atrial fibrillation (principal); Z79.01 Long term (current) use of anticoagulants; Z51.81 Encounter for therapeutic drug level monitoring | CPT/HCPCS: 85610; 99211 ==

== ENCOUNTER 2024-06-10 07:52 | Outpatient (AMB) | payer BC, SELFPAY ==
--- OUTSIDE RECORDS SUMMARY | 2024-06-10 07:54 | XMS_ITS | Clinical Summary ---
Author Organization [facility] Address [address] [place] [address] Phone Care Team Providers Care Cargo Trimmer Name Role Phone Patrick Muniz MD Primary [...] Office Communication [facility] [address] [address] Cynthia Laws from Last 3 [...] patient's age to complete this topic Insurance [address] [address] Care Teams Cargo Trimmer Relationship Specialty Start Date End Date Patrick Muniz MD [address] [address] PCP - General Family Medicine 04/19/21
--- OUTSIDE RECORDS SUMMARY | 2024-06-10 07:54 | XMS_ITS ---
Author Name [facility] [facility] [place] [facility] [place] Address [address] [place] [address] Care Team Providers Care Medical Insurance Collector Name Role Phone SKYLAR GREGORY Primary Care [...] Witt's Name Patient's Relationship to Policy Witt [facility] (WNR) MEDICARE ADVANTAGE [facility] (WNR) May 07, 2017 [id number] [phone] M[address] AG SR PATIENT Selected Encounter This section includes the information on record at [place] for the Encounter. Date/Time Encounter Type Encounter Description Reason Provider Source Jun 09, 2024 10:00 AM TRIM NAIL(S) PODIATRY ICD-10-CM E11.9 Type 2 diabetes mellitus without complications LUIS MANZANO [facility] Encounter Template Text not used by [place] Assessments - Encounter Diagnoses This section includes the primary and secondary diagnoses documented for the Encounter. Date/Time Primary/Secondary Diagnosis Diagnosis Name Provider Source Jun 09, 2024 10:06 AM PRIMARY Type 2 diabetes mellitus without complications LUIS MANZANO [facility] [place] [facility] Jun 09, 2024 10:06 AM SECONDARY Nail dystrophy [facility] Plan of Treatment: Future Appointments (+ 6 months) and Future Tests (+/- 45 days) The Plan of Treatment section includes future care activities for the patient from all [place] [facility]. This section includes future appointments and future orders which are active, pending or scheduled. Future Appointments This section includes appointments that were scheduled to occur 6 months from the date of the Encounter, up to a maximum of 20 appointments. The data comes from all [place] treatment facilities. Appointment Date/Time Appointment Type Appointme nt Facility Name September 23, 2024 01:00 PM [facility]BULATORY - MEDICINE [facility] Oct 08, 2024 10:00 AM [facility] Oct 30, 2024 10:00 AM [facility]BULATORY [facility]ICINE [facility] Social History: Smoking Status (Most current) and Tobacco Use (All prior to encounter date) This section includes the most current, and the historical, smoking and tobacco- related health factors from the [place] facility where the Encounter took place. Current Smoking Status This section includes the most current smoking, or tobacco-related health factor, from the [place] facility where the Encounter took place. Date/Time Current Smoking Status Comment [facility] Apr 17, 2024 10:00 AM VA-TOBACCO USE FOR JACINTO CIGARETTES [facility] Tobacco Use History This section includes a history of the smoking, or tobacco-related health factors, that were collected on or before the date of the Encounter. The data comes from the [place] facility where the Encounter took place. Date/Time Smoking Status/Tobac co Use Comment Facility Apr 17, 2024 10:00 AM VA-TOBACCO USE FORMER CIGARETTES [place] [facility] [place] [facility] May 03, 2023 09:30 AM VA-TOBACCO FORMER USER [place] [facility] [facility] May 03, 2023 09:30 AM [place]-TOBACCO QUIT 15 YRS OR MORE [facility] [facility] Oct 26, 2021 10:00 AM VA-TOBACCO FORMER USER [place] [facility] [facility] Oct 26, 2021 10:00 AM [place]-TOBACCO QUIT 15 YRS OR MORE [facility] Aug 19, 2020 08:30 AM VA-TOBACCO FORMER USER [place] [facility] [place] [facility] Aug 19, 2020 08:30 AM VA-TOBACCO QUIT 15 YRS OR MORE [facility] [facility] May 21, 2018 09:36 AM VA-TOBACCO FORMER USER [facility] [place] [facility] May 21, 2018 09:36 AM VA-TOBACCO QUIT 15 YRS OR MORE [facility] [place] [facility] May 21, 2018 08:51 AM VA-TOBACCO NEVER USED [facility] [facility] May 09, 2017 09:38 AM QUIT TOBACCO USE > 7 YEARS AGO quit 35 yrs ago [facility] [facility] May 09, 2016 09:45 AM LIFETIME NON-TOBACCO USER [facility] [place] [facility] May 06, 2015 08:02 AM QUIT TOBACCO USE > 7 YEARS AGO pt states he stopped smoking 20 yrs ago [facility] [place] [facility] Apr 05, 2009 02:04 PM QUIT TOBACCO USE > 7 YEARS AGO QUIT 15 YEARS AGO [facility] [facility] Encounter Notes: All associated encounter notes This section contains the clinical notes associated to the Encounter. Date/Time Encounter Note(s) Provider Source Jun 09, 2024 10:07 AM PREVENTIVE MEDICIN E NURSING NOTE: LOCAL TITLE: CLINICAL REMINDERS/NURSING STANDARD TITLE: PREVENTIVE MEDICINE NURSING NOTE DATE OF NOTE: JUN 09, 2024@10:07 ENTRY DATE: JUN 09, 2024@10:07:33 AUTHOR: LUIS MANZANO EXP COSIGNER: URGENCY: STATUS: COMPLETED PAVE Foot Check: A complete foot check was completed at this encounter. VISUAL INSPECTION: Includes inspection for skin breaks, deformity, erythema, trauma, pallor on elevation, dependent rubor, nail deformities, extensive callus and pitting edema. Visual exam results: Abnormal Observations: Thickened toenails PEDAL PULSES: Includes palpation of dorsalis and posterior tibial pulses and signs/symptoms of vascular compromise like pain, pallor, parasthesia or paralysis. Present (even if diminished) SENSORY CHECK: Includes 10 gram Monofilament (Bovill-Inessa) test of sensation. Intact (Greater than or equal to 80% of sites checked) Abnormal (Less than 80% of sites checked): Intact LOW-RISK: LOW RISK INFORMATION PROVIDED: 1. Advised patient not to walk barefoot. 2. Explained the importance of daily foot checks for changes. 3. Stressed the importance of daily foot hygiene, including bathing and complete drying. The patient verbalized understanding and was offered a detailed handout on diabetic foot care. /kaylynn/ LUIS MANZANO LPN LICENSED PRACTICAL NURSE Signed: 06/09/2024 10:08 LUIS MANZANO [facility] Jun 09, 2024 10:04 AM NURSING OUTPATIENT NOTE: LOCAL TITLE: NURSING/SPECIALTY CLINIC NOTE STANDARD TITLE: NURSING OUTPATIENT NOTE DATE OF NOTE: JUN 09, 2024@10:04 ENTRY DATE: JUN 09, 2024@10:04:30 AUTHOR: LUIS MANZANO EXP COSIGNER: URGENCY: STATUS: COMPLETED seen in [facility] for continued foot care. Liberal has a history of Diabetes and is unable to trim his/her own nails. Ambulates: [X]self [ ]wheelchair can transfer [ ]wheelchair cannot transfer [x ]without assistance [ ]with assistance of Bilateral: Pedal pulses: Right Foot: Dorsalis Pedis - palpable [ x] non-palpable[ ] Posterior Tibial - palpable[x ] [...] to cool/cold, proximal to distal Pedal skin: [x] Intact [ x] Dry [ ] Cracked [ ] Discolored Webspaces: [x ] Intact [x ] Clean [ ] Soiled [ ] Macerated [ x] Dry Nails: [x ] Thickened [x ] Elongated [x ] Dystrophic [ ] Discolored [...] [x ] Dystrophic toenails [ ] Hyperkeratosis/calluses [x ] Xerosis/dry skin [ ] Other: Treatment: [x ] Nails x 10 debrided in length and thickness without incident [ ] Hyperkeratotic lesions were grinded down with eletric feed grinder and debrided without incidence. [x ]Patient education educated about proper foot care and encouraged to check feet daily for injuries and wounds [ x] Instructed to moisturize feet daily but not in-between toes Patient is to RTC in 4 months. /kaylynn/ LUIS MANZANO LPN LICENSED PRACTICAL NURSE Signed: 06/09/2024 10:06 Receipt Acknowledged By: 06/09/2024 13:01 /kaylynn/ DIEGO LEAHY DPM PODIATRY ATTENDING LUIS MANZANO [facility]
--- OUTSIDE RECORDS SUMMARY | 2024-06-10 07:55 | XMS_ITS | Continuity of Care Document ---
Author Name [facility] Organization 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) Active 05/07/19 19 Condition May 21, 2018 Entered By: MC DAN Comment: treated with finasteride [facility] Essential hypertension Active 05/07/19 09 Condition [facility] Hearing loss (SNOMED CT 73218970) Active 05/07/19 09 Condition [facility] HLD - Hyperlipidemia Active 05/07/19 09 Condition [facility] Hypothyroidism (SNOMED CT 07778089) Active 05/07/19 09 Condition [facility] Diabetes Mellitus Type 2 (SCT 61985996) Active Condition Apr 17, 2024 Entered By: SKYLAR GREGORY Comment: vet under care of community PCP/ Dr Sheldon Muniz- good glycemic control [facility] History of actinic keratosis Active Condition Feb 08, 2024 Entered By: SKYLAR GREGORY Comment: see tele derm-lesions on right side of face/ vet needs cryotx per derm [facility] Low Back Pain (SCT 932357365) Active Condition Oct 26, 2021 Entered By: [...] Diagnosis: ICD-10-CM L57.0 Actinic keratosis Active Diagnosis [facility] Diagnosis: ICD-10-CM Z13.89 Encounter for screening [...] aid Active Diagnosis [facility] [place] [facility] Medications Combined list of outpatient medications [...] ORAL ACTIVE D'ALESSAN KERI MIRANDA G 2023 [facility] BUMETANIDE 1MG TAB TAKE ONE TABLET BY MOUTH ONCE DAILY ORAL ACTIVE D'ALESSAN RUBENKERI G 2023 [facility] CARBOXYMETH YLCELLULOSE NA 0.5% SOLN,OPH INSTILL 1 DROP INTO EACH EYE FOUR TIMES A DAY FOR DRY EYE OPHTHA LMIC ACTIVE 12/25/2024 [id number] SOSA,LAC EY J 2023 45 [facility] GLIPIZIDE 5MG TAB TAKE ONE-HALF TABLET BY MOUTH ORAL ACTIVE D'ALESSAN KERI MIRANDA G [facility] LEVOTHYROXI NE NA 125MCG TAB (SYNTHROID) TAKE ONE TABLET BY MOUTH QD ORAL ACTIVE D'ALESSAN KERI MIRANDA G 2023 [facility] LISINOPRIL 10MG TAB TAKE ONE TABLET BY MOUTH ONCE DAILY ORAL ACTIVE D'ALESSAN RUBENKERI CASAREZ G 2023 [facility] PRAVASTATIN NA 40MG TAB TAKE ONE TABLET BY MOUTH AT BEDTIME ORAL ACTIVE PRASHANT DAN 2009 [facility] Immunizations Combined list of available immunizations from the Department of Defense and Veterans Affairs facilities. 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 INFLUENZA, UNSPECIFIED FORMULATION 2021 88 complet ed [facility] COVID-19 (MODERNA), MRNA, LNP-S, PF, 100 MCG OR 50 MCG DOSE 3 2020 207 complet ed MOD; [id number]; 2 [facility] COVID-19 (MODERNA), MRNA, LNP-S, PF, 100 MCG/0.5 ML DOSE 2 2020 207 complet ed MOD; [id number]; 1 [facility] COVID-19 (MODERNA), MRNA, LNP-S, PF, 100 MCG/0.5 ML DOSE 1 2020 207 complet ed MOD; [id number]; 1 [facility] [...] [facility] FLU,3 YRS (HISTORICAL) 2008 88 complet ed [facility] PNEUMOCOCCAL, UNSPECIFIED FORMULATION 2003 109 complet ed [facility] Results Combined list of recent chemistry, [...] Aug 09, 2022 09:43 AM Reporting Lab: [facility] [address] [address] Performing Lab: [facility] [address] [facility] [address] [facility] HEMOGLOBI N A1C PANEL HEMOGLOBIN A1C/HEMOGLO [...] Aug 09, 2022 09:43 AM Reporting Lab: [facility] [address] [address] Performing Lab: [facility] [address] [address] [facility] BASIC METABOLIC PANEL (non-fast ing) UREA NITROGEN [MASS/VOLUM E] IN SERUM OR PLASMA 27 mg/dL 7 - 25 08/09 H Specimen Type: SERUM Comment: BUN Verified by repeat analysis. Ordering Provider: SKYLAR ARRIOLA Report Released Date/Time: Aug 09, 2022 09:43 AM Reporting Lab: [facility] [address] [address] Performing Lab: [facility] [address] [address] [facility] BASIC METABOLIC PANEL (non-fast ing) GLUCOSE [MASS/VOLUM E] IN SERUM OR PLASMA 126 mg/dL 65 - 100 08/09 H Specimen Type: SERUM Comment: BUN Verified by repeat analysis. Ordering Provider: SKYLAR ARRIOLA Report Released Date/Time: Aug 09, 2022 09:43 AM Reporting Lab: [facility] [address] [address] Performing Lab: [facility] [address] [address] [facility] BASIC METABOLIC PANEL (non-fast ing) SODIUM [MOLES/VOLU ME] IN SERUM OR PLASMA 142 mmol/L 135 - 145 08/09 Specimen Type: SERUM Comment: BUN Verified by repeat analysis. Ordering Provider: SKYLAR ARRIOLA Report Released Date/Time: Aug 09, 2022 09:43 AM Reporting Lab: [facility] [address] [address] Performing Lab: [facility] [address] [address] [facility] BASIC METABOLIC PANEL (non-fast ing) POTASSIUM [MOLES/VOLU ME] IN SERUM OR PLASMA 4.6 mmol/L 3.5 - 5.0 08/09 Specimen Type: SERUM Comment: BUN Verified by repeat analysis. Ordering Provider: SKYLAR ARRIOLA Report Released Date/Time: Aug 09, 2022 09:43 AM Reporting Lab: [facility] [address] [address] Performing Lab: [facility] [address] [address] [facility] BASIC METABOLIC PANEL (non-fast ing) CHLORIDE [MOLES/VOLU ME] IN SERUM OR PLASMA 105 mmol/L 100 - 110 08/09 Specimen Type: SERUM Comment: BUN Verified by repeat analysis. Ordering Provider: SKYLAR ARRIOLA Report Released Date/Time: Aug 09, 2022 09:43 AM Reporting Lab: [facility] [address] [address] Performing Lab: [address] [address] [facility] BASIC METABOLIC PANEL (non-fast ing) CARBON DIOXIDE, TOTAL [MOLES/VOLU ME] IN SERUM OR PLASMA 26 meq/L 20 - 30 08/09 Specimen Type: SERUM Comment: BUN Verified by repeat analysis. Ordering Provider: SKYLAR ARRIOLA Report Released Date/Time: Aug 09, 2022 09:43 AM Reporting Lab: [address] [address] Performing Lab: [address] [address] [facility] BASIC METABOLIC PANEL (non-fast ing) CREATININE [MASS/VOLUM E] IN SERUM OR PLASMA 1.92 mg/dL 0.50 - 1.40 08/09 H Specimen Type: SERUM Comment: BUN Verified by repeat analysis. Ordering Provider: SKYLAR ARRIOLA Report Released Date/Time: Aug 09, 2022 09:43 AM Reporting Lab: [facility] [address] [address] Performing Lab: [facility] [address] [address] [facility] BASIC METABOLIC PANEL (non-fast ing) GLOMERULAR FILTRATION RATE/1.73 SQ M.PREDICTED [VOLUME RATE/AREA] IN SERUM, PLASMA OR BLOOD BY CREATININE- BASED FORMULA (CKD-EPI) 33 mL/min 60 08/09 L Specimen Type: SERUM Comment: BUN Verified by repeat analysis. Ordering Provider: SKYLAR ARRIOLA Report Released Date/Time: Aug 09, 2022 09:43 AM Reporting Lab: [facility] [place] [address] [address] Performing Lab: [facility] [address] [address] [facility] TSH THYROTROPIN [UNITS/VOLU ME] IN SERUM OR PLASMA 11.71 u[IU]/ mL 0.35 - 5.00 08/09 H Specimen Type: SERUM Comment: BUN Verified by repeat analysis. Ordering Provider: SKYLAR ARRIOLA Report Released Date/Time: Aug 09, 2022 09:43 AM Reporting Lab: [facility] [place] [address] [address] Performing Lab: [facility] [place] [address] [address] [facility] [place] [facility] LIVER FUNCTION PROTEIN [MASS/VOLUM E] IN SERUM OR PLASMA 7.5 g/dL 6.0 - 8.3 08/09 Specimen Type: SERUM Comment: BUN Verified by repeat analysis. Ordering Provider: SKYLAR ARRIOLA Report Released Date/Time: Aug 09, 2022 09:43 AM Reporting Lab: [facility] [place] [address] [address] Performing Lab: [facility] [place] [address] [address] [facility] [place] [facility] LIVER FUNCTION ALBUMIN [MASS/VOLUM E] IN SERUM OR PLASMA 4.6 g/dL 3.5 - 5.0 08/09 Specimen Type: SERUM Comment: BUN Verified by repeat analysis. Ordering Provider: SKYLAR ARRIOLA Report Released Date/Time: Aug 09, 2022 09:43 AM Reporting Lab: [facility] [place] [address] [address] Performing Lab: [facility] [place] [facility] [address] [address] [facility] [facility] LIVER FUNCTION ALKALINE PHOSPHATASE [ENZYMATIC ACTIVITY/VO LUME] IN SERUM OR PLASMA 87 U/L 40 - 150 08/09 Specimen Type: SERUM Comment: BUN Verified by repeat analysis. Ordering Provider: SKYLAR ARRIOLA Report Released Date/Time: Aug 09, 2022 09:43 AM Reporting Lab: [facility] [place] [facility] [address] [address] Performing Lab: [facility] [place] [address] [address] [facility] [place] [facility] LIVER FUNCTION ASPARTATE AMINOTRANSF ERASE [ENZYMATIC ACTIVITY/VO LUME] IN SERUM OR PLASMA 34 U/L 5 - 34 08/09 Specimen Type: SERUM Comment: BUN Verified by repeat analysis. Ordering Provider: SKYLAR ARRIOLA Report Released Date/Time: Aug 09, 2022 09:43 AM Reporting Lab: [facility] [place] [address] [address] Performing Lab: [facility] [place] [address] [address] [facility] [place] [facility] LIVER FUNCTION ALANINE AMINOTRANSF ERASE [ENZYMATIC ACTIVITY/VO LUME] IN SERUM OR PLASMA 35 U/L 6 - 55 08/09 Specimen Type: SERUM Comment: BUN Verified by repeat analysis. Ordering Provider: SKYLAR ARRIOLA Report Released Date/Time: Aug 09, 2022 09:43 AM Reporting Lab: [facility] [place] [address] [address] Performing Lab: [facility] [place] [address] [address] [facility] [place] [facility] LIVER FUNCTION BILIRUBIN.T OTAL [MASS/VOLUM E] IN SERUM OR PLASMA 0.6 mg/dL 0.2 - 1.2 08/09 Specimen Type: SERUM Comment: BUN Verified by repeat analysis. Ordering Provider: SKYLAR ARRIOLA Report Released Date/Time: Aug 09, 2022 09:43 AM Reporting Lab: [facility] [place] [address] [address] Performing Lab: [facility] [place] [address] [address] [facility] [place] [facility] CBC AND DIFF (AUTO) LEUKOCYTES [#/VOLUME] IN BLOOD BY AUTOMATED COUNT 9.01 10*3/u L 4.50 - 11.00 08/09 Specimen Type: BLOOD No comment entered. Ordering Provider: SKYLAR ARRIOLA Report Released Date/Time: Aug 09, 2022 09:43 AM Reporting Lab: [facility] [place] [address] [address] Performing Lab: [facility] [place] [address] [address] [facility] CBC AND DIFF (AUTO) ERYTHROCYTE S [#/VOLUME] IN BLOOD BY AUTOMATED COUNT 3.97 10*6/u L 4.23 - 5.66 08/09 L Specimen Type: BLOOD No comment entered. Ordering Provider: SKYLAR ARRIOLA Report Released Date/Time: Aug 09, 2022 09:43 AM Reporting Lab: [facility] [place] [address] [address] Performing Lab: [facility] [place] [address] [address] [facility] [place] [facility] CBC AND DIFF (AUTO) HEMOGLOBIN [MASS/VOLUM E] IN BLOOD 14.1 g/dL 12.8 - 17 08/09 Specimen Type: BLOOD No comment entered. Ordering Provider: SKYLAR ARRIOLA Report Released Date/Time: Aug 09, 2022 09:43 AM Reporting Lab: [facility] [place] [address] [address] Performing Lab: [facility] [place] [address] [address] [facility] [place] [facility] CBC AND DIFF (AUTO) HEMATOCRIT [VOLUME FRACTION] OF BLOOD BY AUTOMATED COUNT 41.5 39.2 - 50.4 08/09 Specimen Type: BLOOD No comment entered. Ordering Provider: SKYLAR ARRIOLA Report Released Date/Time: Aug 09, 2022 09:43 AM Reporting Lab: [place] [facility] [place] [place] [facility] [address] [address] Performing Lab: [facility] [place] [facility] [address] [address] [facility] [place] [facility] CBC AND DIFF (AUTO) MCV [ENTITIC VOLUME] BY AUTOMATED COUNT 104.5 fL 82 - 99 08/09 H Specimen Type: BLOOD No comment entered. Ordering Provider: SKYLAR ARRIOLA Report Released Date/Time: Aug 09, 2022 09:43 AM Reporting Lab: [facility] [place] [address] [address] Performing Lab: [facility] [place] [address] [address] [facility] [place] [facility] CBC AND DIFF (AUTO) MCHC [MASS/VOLUM E] BY AUTOMATED COUNT 34.0 g/dL 30.8 - 35.1 08/09 Specimen Type: BLOOD No comment entered. Ordering Provider: SKYLAR ARRIOLA Report Released Date/Time: Aug 09, 2022 09:43 AM Reporting Lab: [facility] [place] [address] [address] Performing Lab: [facility] [place] [address] [address] [facility] [place] CBC AND DIFF (AUTO) PLATELETS [#/VOLUME] IN BLOOD BY AUTOMATED COUNT 174 10*3/u L 140 - 360 08/09 Specimen Type: BLOOD No comment entered. Ordering Provider: SKYLAR ARRIOLA Report Released Date/Time: Aug 09, 2022 09:43 AM Reporting Lab: [facility] [place] [facility] [address] [address] Performing Lab: [facility] [place] [facility] [address] [address] [facility] CBC AND DIFF (AUTO) ERYTHROCYTE DISTRIBUTIO N WIDTH [RATIO] BY AUTOMATED COUNT 13.2 12.0 - 16.0 08/09 Specimen Type: BLOOD No comment entered. Ordering Provider: SKYLAR ARRIOLA Report Released Date/Time: Aug 09, 2022 09:43 AM Reporting Lab: [facility] [place] [facility] [address] [address] Performing Lab: [facility] [place] [facility] [address] [address] [facility] CBC AND DIFF (AUTO) MONOCYTES [#/VOLUME] IN BLOOD BY AUTOMATED COUNT 0.55 10*3/u L 0.30 - 1.10 08/09 Specimen Type: BLOOD No comment entered. Ordering Provider: SKYLAR ARRIOLA Report Released Date/Time: Aug 09, 2022 09:43 AM Reporting Lab: [facility] [place] [facility] [address] [address] Performing Lab: [facility] [place] [facility] [address] [address] [facility] CBC AND DIFF (AUTO) MCH [ENTITIC MASS] BY AUTOMATED COUNT 35.5 pg 26.2 - 32.6 08/09 H Specimen Type: BLOOD No comment entered. Ordering Provider: SKYLAR ARRIOLA Report Released Date/Time: Aug 09, 2022 09:43 AM Reporting Lab: [facility] [place] [facility] [address] [address] Performing Lab: [facility] [place] [facility] [address] [address] [facility] CBC AND DIFF (AUTO) NEUTROPHILS /100 LEUKOCYTES IN BLOOD BY AUTOMATED COUNT 73.2 43.7 - 75.8 08/09 Specimen Type: BLOOD No comment entered. Ordering Provider: SKYLAR ARRIOLA Report Released Date/Time: Aug 09, 2022 09:43 AM Reporting Lab: [facility] [address] [address] Performing Lab: [facility] [address] [facility] [address] [facility] CBC AND DIFF (AUTO) LYMPHOCYTES /100 LEUKOCYTES IN BLOOD BY AUTOMATED COUNT 17.9 14.0 - 42.3 08/09 Specimen Type: BLOOD No comment entered. Ordering Provider: SKYLAR ARRIOLA Report Released Date/Time: Aug 09, 2022 09:43 AM Reporting Lab: [facility] [address] [facility] [facility] [address] Performing Lab: [facility] [address] [facility] [address] [facility] [place] [facility] CBC AND DIFF (AUTO) MONOCYTES/1 00 LEUKOCYTES IN BLOOD BY AUTOMATED COUNT 6.1 5.1 - 13.7 08/09 Specimen Type: BLOOD No comment entered. Ordering Provider: SKYLAR ARRIOLA Report Released Date/Time: Aug 09, 2022 09:43 AM Reporting Lab: [facility] [address] [facility] [address] Performing Lab: [facility] [address] [facility] [address] [facility] CBC AND DIFF (AUTO) EOSINOPHILS /100 LEUKOCYTES IN BLOOD BY AUTOMATED COUNT 2.0 0.4 - 6.8 08/09 Specimen Type: BLOOD No comment entered. Ordering Provider: SKYLAR ARRIOLA Report Released Date/Time: Aug 09, 2022 09:43 AM Reporting Lab: [facility] [address] [facility] [address] Performing Lab: [facility] [address] [facility] [address] [facility] [place] [facility] CBC AND DIFF (AUTO) BASOPHILS/1 00 LEUKOCYTES IN BLOOD BY AUTOMATED COUNT 0.6 0.1 - 2.0 08/09 Specimen Type: BLOOD No comment entered. Ordering Provider: SKYLAR ARRIOLA Report Released Date/Time: Aug 09, 2022 09:43 AM Reporting Lab: [facility] [place] [address] [address] Performing Lab: [facility] [place] [address] [address] [facility] [place] [facility] CBC AND DIFF (AUTO) NEUTROPHILS [#/VOLUME] IN BLOOD BY AUTOMATED COUNT 6.60 10*3/u L 2.20 - 7.60 08/09 Specimen Type: BLOOD No comment entered. Ordering Provider: SKYLAR ARRIOLA Report Released Date/Time: Aug 09, 2022 09:43 AM Reporting Lab: [facility] [place] [address] [address] Performing Lab: [facility] [place] [address] [address] [facility] [place] [facility] CBC AND DIFF (AUTO) LYMPHOCYTES [#/VOLUME] IN BLOOD BY AUTOMATED COUNT 1.61 10*3/u L 1.00 - 3.20 08/09 Specimen Type: BLOOD No comment entered. Ordering Provider: SKYLAR ARRIOLA Report Released Date/Time: Aug 09, 2022 09:43 AM Reporting Lab: [facility] [place] [place] [facility] [address] [facility] [address] Performing Lab: [facility] [place] [address] [address] [facility] [place] [facility] CBC AND DIFF (AUTO) EOSINOPHILS [#/VOLUME] IN BLOOD BY AUTOMATED COUNT 0.18 10*3/u L 0.03 - 0.44 08/09 Specimen Type: BLOOD No comment entered. Ordering Provider: SKYLAR ARRIOLA Report Released Date/Time: Aug 09, 2022 09:43 AM Reporting Lab: [facility] [place] [facility] [address] [address] Performing Lab: [facility] [place] [facility] [address] [address] [facility] [place] [facility] CBC AND DIFF (AUTO) BASOPHILS [#/VOLUME] IN BLOOD BY AUTOMATED COUNT 0.05 10*3/u L 0.01 - 0.13 08/09 Specimen Type: BLOOD No comment entered. Ordering Provider: SKYLAR ARRIOLA Report Released Date/Time: Aug 09, 2022 09:43 AM Reporting Lab: [facility] [place] [facility] [address] [address] Performing Lab: [place] [facility] [place] [facility] [address] [address] [facility] [place] [facility] CBC AND DIFF (AUTO) IMMATURE GRANULOCYTE S/100 LEUKOCYTES IN BLOOD BY AUTOMATED COUNT 0.2 0.0 - 0.7 08/09 Specimen Type: BLOOD No comment entered. Ordering Provider: SKYLAR ARRIOLA Report Released Date/Time: Aug 09, 2022 09:43 AM Reporting Lab: [facility] [place] [facility] [address] [address] Performing Lab: [facility] [place] [facility] [address] [facility] [address] [facility] [place] [facility] CBC AND DIFF (AUTO) IMMATURE GRANULOCYTE S [#/VOLUME] IN BLOOD 0.02 10*3/u L 0.00 - 0.06 08/09 Specimen Type: BLOOD No comment entered. Ordering Provider: SKYLAR ARRIOLA Report Released Date/Time: Aug 09, 2022 09:43 AM Reporting Lab: [facility] [place] [facility] [address] [facility] [address] Performing Lab: [facility] [place] [address] [address] [place] [facility] [facility] Vital Signs Combined list of inpatient and outpatient Vital Signs from Department of Defense and Veterans Affairs, ranging from 12 months to all on record, depending upon the facility. Vital Sign Value Date Comments Source SYSTOLIC BLOOD PRESSURE 131 04/17/20 24 10:06:11 [facility] [place] [facility] DIASTOLIC BLOOD PRESSURE 70 024 10:06:11 [facility] [place] [facility] PULSE OXIMETRY 97 04/17/2024 10:06:11 [facility] WEIGHT 176 04/17/2024 10:06:11 [facility] BMI 28kg/m2 04/17/2024 10:06:11 [facility] PAIN 0 04/17/2024 10:06:11 [facility] PULSE 63 04/17/2024 10:06:11 [facility] RESPIRATION 20 04/17/2024 10:06:11 [place] [facility] [place] [facility] Encounters Combined list of: 1) Encounters from [facility] facilities going back up to thelast 18 months. 2) Encounters from the Department of Defense facilities going back up to 280 months. 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 Outpatient Encounter [id number] 12/21 [place] [facility] [place] [facility] FIT SPECTACLES MONOFOCAL [id number] Diagnos is: ICD-10- CM Z46.0 Encount er for fit/adj st of spectac les and contact lenses< br/> MARIANNA GIBSON A 12/21 [facility] OFF[facility] O/P EST SF 10-19 MIN [id number] Diagnos is: ICD-10- CM E11.9 Type 2 diabete s mellitu s without complic ations< br/> Juan A MACHUCA 01/09 [facility] Out[facility] En[facility] [id number] 01/10 [facility] HEARING AID REPAIR/MOD IFYING [id number] Diagnos is: ICD-10- CM Z46.1 Encount er for fitting and adjustm ent of hearing aid<br/ > Huey PEREZ 01/16 [facility] REPAIR & ADJUST SPECTACLES [id number] Diagnos is: ICD-10- CM Z46.0 Encount er for fit/adj st of spectac les and contact lenses< br/> MARYLOU URIAS 01/19 [facility] Out[facility] En[facility] [id number] 02/07 [facility] [id number] 02/20 [facility] En[facility] [id number] 04/23 [facility] OFF[facility] O/P EST LOW 20-29 MIN [id number] Diagnos is: ICD-10- CM E11.22 Type 2 diabete s mellitu s w diabeti c chronic kidney disease
SKYLAR LEMUS 05/03 [facility] HEARING AID REPAIR/MOD IFYING [id number] Diagnos is: ICD-10- CM H90.3 Sensori neural hearing loss, bilater al
SENIOR,JOHNSON OLE L 05/24 [facility] Outpatient Encounter [id number] 06/01 [facility] OFFICE O/P EST SF 10 MIN [id number] Diagnos is: ICD-10- CM E11.9 Type 2 diabete s mellitu s without complic ations< br/> Juan A MACHUCA 06/06 [facility] Outpatient Encounter [id number] 09/24 [facility] Out[facility] Encounter [id number] 09/24 [facility] Outpatient Encounter [id number] 10/22 [facility] Outpatient Encounter [id number] Diagnos is: ICD-10- CM S46.911 A Strain unsp musc/fa sc/tend at shldr/u p arm, right arm, init
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 Outpatient Encounter [id number] 01/08 [facility] OFF/OP EST SEPTEMBER X REQ PHY/QHP [id number] Diagnos is: ICD-10- CM R21 Rash and other nonspec ific skin eruptio n
TOOTIE REARDON H 01/21 [facility] UNLISTED SPEC DERM SVC/PX [id number] 1. Diagnos is: ICD-10- CM Z13.89 Encount er for screeni ng for other disorde r
DARCIE HAIR ICA A 02/06 [facility] TRIM NAIL(S) [id number] 1. Diagnos is: ICD-10- CM E11.9 Type 2 diabete s mellitu s without complic ations< br/> VICENTE MANZANO GAMALIEL 02/06 [facility] Outpatient Encounter [id number] Diagnos is: ICD-10- CM L57.0 Actinic keratos is
MARY ARIAS PH J 02/07 [facility] Outpatient Encounter [id number] 02/07 [facility] Outpatient Encounter [id number] 02/10 [facility] OFFICE O/P EST MOD 30 MIN [id number] Diagnos is: ICD-10- CM E11.9 Type 2 diabete s mellitu s without complic ations< br/> SKYLAR LEMUS 04/17 [facility] TRIM NAIL(S) [id number] Diagnos is: ICD-10- CM E11.9 Type 2 diabete s mellitu s without complic ations< br/> VICENTE MANZANO 06/09 [facility] Social History Combined list of available smoking, tobacco, and other social history from Department of Defense and Veterans Affairs facilities. Social History Type Response Date Comment Source Tobacco smoking status [facility] VA-TOBACCO USE FORMER CIGARETTES 04/17/[address] [facility] History of tobacco use VA-TOBACCO NEVER USED OTHER TYPE 04/17/2024 [facility] History of tobacco use VA-TOBACCO FORMER USER 05/03/2023 [facility] History of tobacco use VA-TOBACCO FORMER USER 10/26/2021 [facility] History of tobacco use VA-TOBACCO FORMER USER 08/19/2020 [facility] History of tobacco use VA-TOBACCO FORMER USER 05/21/2018 [facility] History of tobacco use VA-TOBACCO NEVER USED 05/21/2018 [facility] History of tobacco use QUIT TOBACCO USE > 7 YEARS AGO 05/09/2017 quit 35 yrs ago [facility] History of tobacco use LIFETIME NON-TOBACCO USER 05/09/2016 [facility] History of tobacco use QUIT TOBACCO USE > 7 YEARS AGO 05/06/2015 pt states he stopped smoking 20 yrs ago [facility] History of tobacco use QUIT TOBACCO USE > 7 YEARS AGO 04/05/2009 QUIT 15 YEARS AGO [facility] Plan of Care List of future care activities from [facility] facilities. Additional future care activities may be listed in the Assessment and Plan section. Date/Time Care Activity Care Activity Detail Facili ty 09/23/2024 AMBULAT[facility] - [facility]IC[facility] 10/08/2024 [facility]BUL[facility] [place] [facility] 10/30/2024 [facility]BULAT[facility]
--- NOTE | 2024-06-10 08:33 | MHC.OFFVIS ---
Intake Visit Reasons: 6M PVR Intake Note: Patient is present for 6m PVR Urology Medication:TAMSULOSIN Antibiotic Allergy:NONE Blood Thinner:WARFARIN Todays PVR:55ML'S Plug Maker Required: No Allergies hydralazine [Hydralazine] Allergy (Unknown, Verified 06/10/24 08:37) SEVERE HEADACHE HPI Comments Details: Boston Rivers is a very pleasant male. He is a patient of Dr Muniz and Dr Vuong at the [facility]. He is seen for the following urologic conditions. - BPH elevated PSA - with urinary urgency frequency - erectile dysfunction - primary testicular failure and hypergonadtoropic hypogonadism Follow-up from restarting tadalafil 5 mg daily for urinary urgency and frequency Has improved control Refill prescription Persistent elevation FSH and LH. 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 Has lab work that is upper limit of normal for a number of these evaluations - subclinical Rockford's disease Noted that urinary urgency and frequency increased once stopping finasteride and tadalafil Elevated PSA/Abnormal NEO: Current management is medication with 5AR. Laboratory investigations include 10/22 , a total PSA evaluation 4.99 03/24 , a total PSA evaluation - reports as 3.5 09/22 3.0 09/23 1.4, 03/27 3.4, 09/25 FSH 56 T 273, 04/27 FSH 52, LH 22, T 177, PSA 1.3, 10/27 FSH 53 LH 42 E 32, 12/27 P 1.2, 11/27 P 1.4 Individualized Prostate Cancer Risk Calculator 5-10% high risk, Would like to continue with observation and understands and accepts the risks of a possible delay in diagnosis. Symptoms include / , nocturia, x 1, and are improving. Overall symptoms are mild. Erectile dysfunction Combination of daily and on demand tadalafil PFSH Medical History Chest pain RUQ pain Wheezing Elevated diaphragm Pulmonary nodules Aortic stenosis Edema CAD (coronary artery disease) Diabetes type 2, controlled Elevated prostate specific antigen between 10 and 19 ng/ml Atrial fibrillation Jayy's disease Elevated morning serum cortisol level Surgical History History of cardiac cath Hx of tonsillectomy Hx of colonoscopy Family History Father Colon cancer Mother HTN (hypertension) Type 2 diabetes mellitus Brother No problems noted. Sister No problems noted. Son No problems noted. Son No problems noted. Son No problems noted. Daughter No problems noted. Daughter No problems noted. Social History Housing: Apartment Alcohol intake: former Year quit: 1979 Patient Tobacco Use Status: Former Tobacco user Years Smoked: 45+ e-Cigarette/Vaping Use: Never Used Second Hand Smoke Exposure: No service: Yes ([employer] [id number]) Current occupational status: retired Current occupational exposures/hazards: No Cognitive needs: No Hearing needs: Yes Vision needs: No Review of Systems Const Denies chills and Denies fever(s) Card Reports no additional complaints and Denies syncope Resp Denies cough GI Denies abdominal pain and Denies heartburn Reports as per HPI and Denies change in libido Neuro Denies syncope Psych Denies change in libido Endo Denies change in libido Physical Exam Const General: cooperative, healthy appearing, comfortable and no acute distress Orientation/consciousness: patient oriented x3 HEENT Face and sinus: Yes normal facial exam Mouth: moist mucous membranes Neck Neck: Yes normal visual inspection, Yes full ROM and Yes trachea midline Chest Chest palpation & inspection: normal inspection of the chest Resp Effort & Inspection: normal respiratory effort, able to speak in complete sentences and no respiratory distress GI Inspection: Yes normal to inspection Back/Spine/Pelvis Cervical Spine: normal cervical lordosis Thoracic/Lumbar Spine: thoracic and lumbar spine normal to inspection Skin General skin exam: no rashes or lesions noted Neuro General: patient oriented x3, gait normal, tone normal and moves all extremities Extrem General: Yes normal to inspection and Yes capillary refill normal Office Procedures Post Void Residual Post Residual Void Post Void Residual (PVR): 55 [id number]-[id number] Void Residual by ultrasound Results AMB Urinalysis, Automated UA Leukoctes 0 Jose/uL Last Edit by NANCY Hoff on 06/10/24 08:51 UA Nitrite Negative Last Edit by NANCY Hoff on 06/10/24 08:51 UA Urobilinogen 0.2 mg/dL Last Edit by NANCY Hoff on 06/10/24 08:51 UA Protein 0 mg/dL Last Edit by NANCY Hoff on 06/10/24 08:51 UA pH 6.0 Last Edit by NANCY Hoff on 06/10/24 08:51 UA Blood 10 Reg/uL Last Edit by NANCY Hoff on 06/10/24 08:51 UA Specific Manning 1.015 Last Edit by NANCY Hoff on 06/10/24 08:51 UA Ketone Negative Last Edit by NANCY Hoff on 06/10/24 08:51 UA Bilirubin 0 mg/dL Last Edit by NANCY Hoff on 06/10/24 08:51 UA Glucose 0 mg/dL Last Edit by NANCY Hoff on 06/10/24 08:51 Results Reviewed Results Reviewed: Laboratory Last Values Urine pH (Auto) 6.0 06/10/24 08:50 Specific Manning (Auto) 1.015 06/10/24 08:50 Urine Protein (Auto) 0 mg/dL 06/10/24 08:50 Glucose (UA)(Auto) 0 mg/dL 06/10/24 08:50 Urine Ketones (Auto) Negative 06/10/24 08:50 Urine Blood (Auto) 10 Reg/uL 06/10/24 08:50 Urine Nitrite (Auto) Negative 06/10/24 08:50 Urine Bilirubin (Auto) 0 mg/dL 06/10/24 08:50 Urine Urobilinogen (Auto) 0.2 mg/dL 06/10/24 08:50 Leukocyte Esterase (Auto) 0 Jose/uL 06/10/24 08:50 Assessment & Plan Assessment & Plan (1) BPH w urinary obs/LUTS: Code(s): N40.1 - Benign prostatic hyperplasia with lower urinary tract symptoms; N13.8 - Other obstructive and reflux uropathy Category: Medical (2) Erectile dysfunction: Code(s): N52.9 - Male erectile dysfunction, unspecified Category: Medical (3) Urinary urgency: Code(s): R39.15 - Urgency of urination Category: Medical Plan Six-month follow-up PVR office Orders: Orders AMB Urinalysis Automated Today Z13.9 - Encounter for screening, unspecified Medications: New tadalafil 5 mg PO DAILY 90 days 90 tabs 1RF sexual activity N13.8 - Other obstructive and reflux uropathy, N40.1 - Benign prostatic hyperplasia with lower urinary tract symptoms Changed From tamsulosin 0.4 mg PO BEDTIME 30 days 30 caps 2RF N13.8 - Other obstructive and reflux uropathy, N40.1 - Benign prostatic hyperplasia with lower urinary tract symptoms To tamsulosin 0.4 mg PO BEDTIME 90 days 90 caps 1RF N13.8 - Other obstructive and reflux uropathy, N40.1 - Benign prostatic hyperplasia with lower urinary tract symptoms Patient Instructions: This note is constructed using voice recognition software. While every effort has been made to ensure accuracy sales manager [place] errors may have been included. Imaging studies, laboratory and physical exam results were discussed and reviewed in detail. No major barriers to patient understanding were identified. An opportunity to ask questions regarding the treatment plan was provided. All questions were answered. The patient expressed understanding and agreement with the above treatment plan. The patient is aware they should contact our office by phone for worsening of their current condition or the appearance of new urologic symptoms. Compliance is encouraged with any medications and followup testing that is ordered. It is a privilege to participate in the urologic care of your patient. If you have any questions or concerns regarding treatment for the above conditions, or other urologic issues, please do not hesitate to contact me. The office telephone contact is [phone]. Sincerely, Dr Dennis Francis MD, [facility] - Urology Compassionate Specialist Care for the Genitourinary System Coding Level of Care Code Est Pt Level 3 (07420) Diagnoses BPH w urinary obs/LUTS N40.1; N13.8 Erectile dysfunction N52.9 Urinary urgency R39.15 CPT Codes Post Residual Void - PVR CPT Code: 14029-Uurq Void Residual by ultrasound ([id number])
== END 2024-06-10 09:21 | disposition home or self-care (01) ==
PROVIDERS: PCP Family Medicine; Visit Provider Urology
DX: N40.1 Benign prostatic hyperplasia with lower urinary tract symptoms (principal); N13.8 Other obstructive and reflux uropathy; N52.9 Male erectile dysfunction, unspecified; R39.15 Urgency of urination; Z13.9 Encounter for screening, unspecified
CPT/HCPCS: 99213

== ENCOUNTER → 2024-06-10 07:52 | Outpatient (BNVA) | payer BC, SELFPAY | PROVIDERS: PCP Family Medicine; Visit Provider Urology | DX: N40.1 Benign prostatic hyperplasia with lower urinary tract symptoms (principal); R39.15 Urgency of urination; N52.9 Male erectile dysfunction, unspecified; N13.8 Other obstructive and reflux uropathy; Z79.01 Long term (current) use of anticoagulants; Z79.899 Other long term (current) drug therapy | CPT/HCPCS: 51798; 81003 ==

== ENCOUNTER → 2024-06-12 10:13 | Outpatient (BNVA) | payer BC, SELFPAY | PROVIDERS: PCP Family Medicine; Visit Provider Surgery Vascular Surgery ==

== ENCOUNTER 2024-06-24 08:01 | Outpatient (AMB) | payer BC, SELFPAY ==
--- OUTSIDE RECORDS SUMMARY | 2024-06-24 08:03 | XMS_ITS | Clinical Summary ---
Author Organization [facility] Address [address] [place] [address] Phone Care Team Providers Care Paint Technician Name Role Phone Patrick Muniz MD Primary [...] By: MC DAN Comment: treated with finasteride Family History Medical History Relation Comments Cancer [...] patient's age to complete this topic [place] [address] [place] [address] Care Teams Paint Technician Relationship Specialty Start Date End Date Patrick Muniz MD [address] [place] [address] [place] [address] PCP - General Family Medicine 04/19/21
--- OUTSIDE RECORDS SUMMARY | 2024-06-24 08:03 | XMS_ITS | Continuity of Care Document ---
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 05/07/19 19 Condition May 21, 2018 Entered By: MC DAN Comment: treated with finasteride [facility] Essential hypertension Active 05/07/19 09 Condition [facility] Hearing loss (SNOMED CT 16069255) Active 05/07/19 09 Condition [facility] HLD - Hyperlipidemia Active 05/07/19 09 Condition [facility] Hypothyroidism (SNOMED CT 61576739) Active 05/07/19 09 Condition [facility] Diabetes Mellitus Type 2 (SCT 10289893) Active Condition Apr 17, 2024 Entered By: SKYLAR GREGORY Comment: vet under care of community PCP/ Dr Sheldon Muniz- good glycemic control [facility] History of actinic keratosis Active Condition Feb 08, 2024 Entered By: SKYLAR GREGORY Comment: see tele derm-lesions on right side of face/ vet needs cryotx per derm [facility] Low Back Pain (SCT 432227714) Active Condition Oct 26, 2021 Entered By: [...] Diagnosis: ICD-10-CM L57.0 Actinic keratosis Active Diagnosis [facility] Diagnosis: ICD-10-CM Z13.89 Encounter for screening for [...] aid Active Diagnosis [facility] Medications Combined list of outpatient medications [...] ORAL ACTIVE D'ALESSAN KERI MIRANDA G [facility] BUMETANIDE 1MG TAB TAKE ONE TABLET BY MOUTH ONCE DAILY ORAL ACTIVE D'ALESSAN RUBENKERI G 2023 [facility] CARBOXYMETH YLCELLULOSE NA 0.5% SOLN,OPH INSTILL 1 DROP INTO EACH EYE FOUR TIMES A DAY FOR DRY EYE OPHTHA LMIC ACTIVE 12/25/2024 [id number] SOSA,LAC EY J 2023 45 [facility] GLIPIZIDE 5MG TAB TAKE ONE-HALF TABLET BY MOUTH ORAL ACTIVE D'ALESSAN KERI MIRANDA G 2023 [facility] LEVOTHYROXI NE NA 125MCG TAB (SYNTHROID) TAKE ONE TABLET BY MOUTH QD ORAL ACTIVE D'ALESSAN KERI MIRANDA G 2023 [facility] LISINOPRIL 10MG TAB TAKE ONE TABLET BY MOUTH ONCE DAILY ORAL ACTIVE D'ALESSAN RUBENKERI CASAREZ G 2023 [facility] PRAVASTATIN NA 40MG TAB TAKE ONE TABLET BY MOUTH AT BEDTIME ORAL ACTIVE PRASHANT DAN 2009 [facility] [place] [facility] Immunizations Combined list of available immunizations from the Department of Defense and Veterans Affairs facilities. Immunization Series Date Given Administered By Site Reaction Lot Number CVX Code Drug Tortilla Maker Status Comments Source INFLUENZA, UNSPECIFIED FORMULATION 2023 88 complet ed [facility] [place] [facility] INFLUENZA, UNSPECIFIED FORMULATION 2021 88 complet ed [facility] COVID-19 (MODERNA), MRNA, LNP-S, PF, 100 MCG OR 50 MCG DOSE 3 2020 207 complet ed MOD; [id number]; 2 [facility] COVID-19 (MODERNA), MRNA, LNP-S, PF, 100 MCG/0.5 ML DOSE 2 2020 207 complet ed MOD; [id number]; 1 [facility] COVID-19 (MODERNA), MRNA, LNP-S, PF, 100 MCG/0.5 ML DOSE 1 2020 207 complet ed MOD; [id number]; 1 [facility] [...] [facility] FLU,3 YRS (HISTORICAL) 2008 88 [facility] PNEUMOCOCCAL, UNSPECIFIED FORMULATION 2003 109 complet ed [facility] Results Combined list of recent chemistry, [...] Aug 09, 2022 09:43 AM Reporting Lab: [facility] [address] [facility] [address] Performing Lab: [facility] [address] [facility] [facility] [address] [facility] HEMOGLOBI N A1C PANEL HEMOGLOBIN A1C/HEMOGLO [...] Aug 09, 2022 09:43 AM Reporting Lab: [facility] [address] [facility] [address] Performing Lab: [facility] [address] [facility] [address] [facility] BASIC METABOLIC PANEL (non-fast ing) UREA NITROGEN [MASS/VOLUM E] IN SERUM OR PLASMA 27 mg/dL 7 - 25 08/09 H Specimen Type: SERUM Comment: BUN Verified by repeat analysis. Ordering Provider: SKYLAR ARRIOLA Report Released Date/Time: Aug 09, 2022 09:43 AM Reporting Lab: [facility] [address] [address] Performing Lab: [facility] [address] [address] [facility] BASIC METABOLIC PANEL (non-fast ing) GLUCOSE [MASS/VOLUM E] IN SERUM OR PLASMA 126 mg/dL 65 - 100 08/09 H Specimen Type: SERUM Comment: BUN Verified by repeat analysis. Ordering Provider: SKYLAR ARRIOLA Report Released Date/Time: Aug 09, 2022 09:43 AM Reporting Lab: [facility] [address] [address] Performing Lab: [facility] [address] [address] [facility] BASIC METABOLIC PANEL (non-fast ing) SODIUM [MOLES/VOLU ME] IN SERUM OR PLASMA 142 mmol/L 135 - 145 08/09 Specimen Type: SERUM Comment: BUN Verified by repeat analysis. Ordering Provider: SKYLAR ARRIOLA Report Released Date/Time: Aug 09, 2022 09:43 AM Reporting Lab: [facility] [address] [address] Performing Lab: [facility] [address] [address] [facility] BASIC METABOLIC PANEL (non-fast ing) POTASSIUM [MOLES/VOLU ME] IN SERUM OR PLASMA 4.6 mmol/L 3.5 - 5.0 08/09 Specimen Type: SERUM Comment: BUN Verified by repeat analysis. Ordering Provider: SKYLAR ARRIOLA Report Released Date/Time: Aug 09, 2022 09:43 AM Reporting Lab: [facility] [address] [address] Performing Lab: [facility] [address] [facility] [address] [facility] BASIC METABOLIC PANEL (non-fast ing) CHLORIDE [MOLES/VOLU ME] IN SERUM OR PLASMA 105 mmol/L 100 - 110 08/09 Specimen Type: SERUM Comment: BUN Verified by repeat analysis. Ordering Provider: SKYLAR ARRIOLA Report Released Date/Time: Aug 09, 2022 09:43 AM Reporting Lab: [facility] [address] [address] Performing Lab: [address] [address] [facility] BASIC METABOLIC PANEL (non-fast ing) CARBON DIOXIDE, TOTAL [MOLES/VOLU ME] IN SERUM OR PLASMA 26 meq/L 20 - 30 08/09 Specimen Type: SERUM Comment: BUN Verified by repeat analysis. Ordering Provider: SKYLAR ARRIOLA Report Released Date/Time: Aug 09, 2022 09:43 AM Reporting Lab: [address] [address] Performing Lab: [address] [address] [facility] BASIC METABOLIC PANEL (non-fast ing) CREATININE [MASS/VOLUM E] IN SERUM OR PLASMA 1.92 mg/dL 0.50 - 1.40 08/09 H Specimen Type: SERUM Comment: BUN Verified by repeat analysis. Ordering Provider: SKYLAR ARRIOLA Report Released Date/Time: Aug 09, 2022 09:43 AM Reporting Lab: [facility] [address] [address] Performing Lab: [facility] [address] [address] [facility] BASIC METABOLIC PANEL (non-fast ing) GLOMERULAR FILTRATION RATE/1.73 SQ M.PREDICTED [VOLUME RATE/AREA] IN SERUM, PLASMA OR BLOOD BY CREATININE- BASED FORMULA (CKD-EPI) 33 mL/min 60 08/09 L Specimen Type: SERUM Comment: BUN Verified by repeat analysis. Ordering Provider: SKYLAR ARRIOLA Report Released Date/Time: Aug 09, 2022 09:43 AM Reporting Lab: [facility] [place] [address] [address] Performing Lab: [facility] [place] [address] [address] [facility] TSH THYROTROPIN [UNITS/VOLU ME] IN SERUM OR PLASMA 11.71 u[IU]/ mL 0.35 - 5.00 08/09 H Specimen Type: SERUM Comment: BUN Verified by repeat analysis. Ordering Provider: SKYLAR ARRIOLA Report Released Date/Time: Aug 09, 2022 09:43 AM Reporting Lab: [place] [facility] [place] [address] [address] Performing Lab: [facility] [place] [address] [address] [facility] [place] [facility] LIVER FUNCTION PROTEIN [MASS/VOLUM E] IN SERUM OR PLASMA 7.5 g/dL 6.0 - 8.3 08/09 Specimen Type: SERUM Comment: BUN Verified by repeat analysis. Ordering Provider: SKYLAR ARRIOLA Report Released Date/Time: Aug 09, 2022 09:43 AM Reporting Lab: [facility] [place] [address] [address] Performing Lab: [facility] [place] [address] [address] [facility] [place] [facility] LIVER FUNCTION ALBUMIN [MASS/VOLUM E] IN SERUM OR PLASMA 4.6 g/dL 3.5 - 5.0 08/09 Specimen Type: SERUM Comment: BUN Verified by repeat analysis. Ordering Provider: SKYLAR ARRIOLA Report Released Date/Time: Aug 09, 2022 09:43 AM Reporting Lab: [facility] [place] [address] [address] Performing Lab: [facility] [place] [facility] [address] [facility] [address] [facility] [place] [facility] LIVER FUNCTION ALKALINE PHOSPHATASE [ENZYMATIC ACTIVITY/VO LUME] IN SERUM OR PLASMA 87 U/L 40 - 150 08/09 Specimen Type: SERUM Comment: BUN Verified by repeat analysis. Ordering Provider: SKYLAR ARRIOLA Report Released Date/Time: Aug 09, 2022 09:43 AM Reporting Lab: [facility] [place] [facility] [address] [facility] [address] Performing Lab: [place] [facility] [place] [address] [address] [place] [facility] [place] [facility] LIVER FUNCTION ASPARTATE AMINOTRANSF ERASE [ENZYMATIC ACTIVITY/VO LUME] IN SERUM OR PLASMA 34 U/L 5 - 34 08/09 Specimen Type: SERUM Comment: BUN Verified by repeat analysis. Ordering Provider: SKYLAR ARRIOLA Report Released Date/Time: Aug 09, 2022 09:43 AM Reporting Lab: [facility] [place] [address] [address] Performing Lab[facility] [place] [address] [address] [place] [facility] LIVER FUNCTION ALANINE AMINOTRANSF ERASE [ENZYMATIC ACTIVITY/VO LUME] IN SERUM OR PLASMA 35 U/L 6 - 55 08/09 Specimen Type: SERUM Comment: BUN Verified by repeat analysis. Ordering Provider: SKYLAR ARRIOLA Report Released Date/Time: Aug 09, 2022 09:43 AM Reporting Lab: [facility] [place] [address] [address] Performing Lab: [facility] [place] [address] [address] [place] [facility] [place] [facility] LIVER FUNCTION BILIRUBIN.T OTAL [MASS/VOLUM E] IN SERUM OR PLASMA 0.6 mg/dL 0.2 - 1.2 08/09 Specimen Type: SERUM Comment: BUN Verified by repeat analysis. Ordering Provider: SKYLAR ARRIOLA Report Released Date/Time: Aug 09, 2022 09:43 AM Reporting Lab: [facility] [place] [address] [address] Performing Lab: [facility] [place] [address] [address] [place] [facility] [place] [facility] CBC AND DIFF (AUTO) LEUKOCYTES [#/VOLUME] IN BLOOD BY AUTOMATED COUNT 9.01 10*3/u L 4.50 - 11.00 08/09 Specimen Type: BLOOD No comment entered. Ordering Provider: SKYLAR ARRIOLA Report Released Date/Time: Aug 09, 2022 09:43 AM Reporting Lab: [facility] [place] [address] [address] Performing Lab: [place] [facility] [place] [address] [address] [facility] [place] [facility] CBC AND DIFF (AUTO) ERYTHROCYTE S [#/VOLUME] IN BLOOD BY AUTOMATED COUNT 3.97 10*6/u L 4.23 - 5.66 08/09 L Specimen Type: BLOOD No comment entered. Ordering Provider: SKYLAR ARRILOA Report Released Date/Time: Aug 09, 2022 09:43 AM Reporting Lab: [facility] [place] [address] [address] Performing Lab: [place] [facility] [place] [address] [address] [facility] [place] [facility] CBC AND DIFF (AUTO) HEMOGLOBIN [MASS/VOLUM E] IN BLOOD 14.1 g/dL 12.8 - 17 08/09 Specimen Type: BLOOD No comment entered. Ordering Provider: SKYLAR ARRIOLA Report Released Date/Time: Aug 09, 2022 09:43 AM Reporting Lab: [facility] [place] [address] [address] Performing Lab: [place] [facility] [place] [address] [address] [place] [facility] [place] [facility] CBC AND DIFF (AUTO) HEMATOCRIT [VOLUME FRACTION] OF BLOOD BY AUTOMATED COUNT 41.5 39.2 - 50.4 08/09 Specimen Type: BLOOD No comment entered. Ordering Provider: SKYLAR ARRIOLA Report Released Date/Time: Aug 09, 2022 09:43 AM Reporting Lab: [place] [facility] [place] [facility] [address] [facility] [address] Performing Lab: [place] [facility] [place] [facility] [address] [facility] [address] [facility] [place] [facility] CBC AND DIFF (AUTO) MCV [ENTITIC VOLUME] BY AUTOMATED COUNT 104.5 fL 82 - 99 08/09 H Specimen Type: BLOOD No comment entered. Ordering Provider: SKYLAR ARRIOLA Report Released Date/Time: Aug 09, 2022 09:43 AM Reporting Lab: [place] [facility] [place] [address] [address] Performing Lab: [place] [facility] [place] [address] [address] [facility] CBC AND DIFF (AUTO) MCHC [MASS/VOLUM E] BY AUTOMATED COUNT 34.0 g/dL 30.8 - 35.1 08/09 Specimen Type: BLOOD No comment entered. Ordering Provider: SKYLAR ARRIOLA Report Released Date/Time: Aug 09, 2022 09:43 AM Reporting Lab: [facility] [place] [address] [address] Performing Lab: [place] [facility] [place] [address] [address] [place] [facility] [place] [facility] CBC AND DIFF (AUTO) PLATELETS [#/VOLUME] IN BLOOD BY AUTOMATED COUNT 174 10*3/u L 140 - 360 08/09 Specimen Type: BLOOD No comment entered. Ordering Provider: SKYLAR ARRIOLA Report Released Date/Time: Aug 09, 2022 09:43 AM Reporting Lab: [facility] [place] [facility] [address] [facility] [address] Performing Lab: [facility] [place] [facility] [address] [facility] [address] [facility] CBC AND DIFF (AUTO) ERYTHROCYTE DISTRIBUTIO N WIDTH [RATIO] BY AUTOMATED COUNT 13.2 12.0 - 16.0 08/09 Specimen Type: BLOOD No comment entered. Ordering Provider: SKYLAR ARRIOLA Report Released Date/Time: Aug 09, 2022 09:43 AM Reporting Lab: [facility] [place] [facility] [address] [facility] [address] Performing Lab: [facility] [place] [facility] [address] [facility] [address] [facility] CBC AND DIFF (AUTO) MONOCYTES [#/VOLUME] IN BLOOD BY AUTOMATED COUNT 0.55 10*3/u L 0.30 - 1.10 08/09 Specimen Type: BLOOD No comment entered. Ordering Provider: SKYLAR ARRIOLA Report Released Date/Time: Aug 09, 2022 09:43 AM Reporting Lab: [facility] [place] [facility] [address] [facility] [address] Performing Lab: [facility] [place] [facility] [address] [facility] [address] [facility] [place] CBC AND DIFF (AUTO) MCH [ENTITIC MASS] BY AUTOMATED COUNT 35.5 pg 26.2 - 32.6 08/09 H Specimen Type: BLOOD No comment entered. Ordering Provider: SKYLAR ARRIOLA Report Released Date/Time: Aug 09, 2022 09:43 AM Reporting Lab: [facility] [place] [facility] [address] [facility] [address] Performing Lab: [facility] [place] [facility] [address] [facility] [address] [facility] [place] CBC AND DIFF (AUTO) NEUTROPHILS /100 LEUKOCYTES IN BLOOD BY AUTOMATED COUNT 73.2 43.7 - 75.8 08/09 Specimen Type: BLOOD No comment entered. Ordering Provider: SKYLAR ARRIOLA Report Released Date/Time: Aug 09, 2022 09:43 AM Reporting Lab: [facility] [address] [facility] [address] Performing Lab: [facility] [address] [facility] [address] [facility] CBC AND DIFF (AUTO) LYMPHOCYTES /100 LEUKOCYTES IN BLOOD BY AUTOMATED COUNT 17.9 14.0 - 42.3 08/09 Specimen Type: BLOOD No comment entered. Ordering Provider: SKYLAR ARRIOLA Report Released Date/Time: Aug 09, 2022 09:43 AM Reporting Lab: [facility] [address] [facility] [address] Performing Lab: [facility] [address] [facility] [address] [facility] [place] [facility] CBC AND DIFF (AUTO) MONOCYTES/1 00 LEUKOCYTES IN BLOOD BY AUTOMATED COUNT 6.1 5.1 - 13.7 08/09 Specimen Type: BLOOD No comment entered. Ordering Provider: SKYLAR ARRIOLA Report Released Date/Time: Aug 09, 2022 09:43 AM Reporting Lab: [facility] [address] [facility] [address] Performing Lab: [facility] [address] [facility] [address] [facility] CBC AND DIFF (AUTO) EOSINOPHILS /100 LEUKOCYTES IN BLOOD BY AUTOMATED COUNT 2.0 0.4 - 6.8 08/09 Specimen Type: BLOOD No comment entered. Ordering Provider: SKYLAR ARRIOLA Report Released Date/Time: Aug 09, 2022 09:43 AM Reporting Lab: [facility] [address] [facility] [address] Performing Lab: [facility] [place] [address] [facility] [address] [facility] [place] [facility] CBC AND DIFF (AUTO) BASOPHILS/1 00 LEUKOCYTES IN BLOOD BY AUTOMATED COUNT 0.6 0.1 - 2.0 08/09 Specimen Type: BLOOD No comment entered. Ordering Provider: SKYLAR ARRIOLA Report Released Date/Time: Aug 09, 2022 09:43 AM Reporting Lab: [place] [facility] [place] [address] [address] Performing Lab: [place] [facility] [place] [address] [address] [place] [facility] [facility] CBC AND DIFF (AUTO) NEUTROPHILS [#/VOLUME] IN BLOOD BY AUTOMATED COUNT 6.60 10*3/u L 2.20 - 7.60 08/09 Specimen Type: BLOOD No comment entered. Ordering Provider: SKYLAR ARRIOLA Report Released Date/Time: Aug 09, 2022 09:43 AM Reporting Lab: [place] [facility] [place] [address] [address] Performing Lab: [place] [facility] [place] [address] [address] [facility] [place] [facility] CBC AND DIFF (AUTO) LYMPHOCYTES [#/VOLUME] IN BLOOD BY AUTOMATED COUNT 1.61 10*3/u L 1.00 - 3.20 08/09 Specimen Type: BLOOD No comment entered. Ordering Provider: SKYLAR ARRIOLA Report Released Date/Time: Aug 09, 2022 09:43 AM Reporting Lab: [place] [facility] [place] [facility] [address] [facility] [address] Performing Lab: [place] [facility] [place] [address] [address] [place] [facility] [place] [facility] CBC AND DIFF (AUTO) EOSINOPHILS [#/VOLUME] IN BLOOD BY AUTOMATED COUNT 0.18 10*3/u L 0.03 - 0.44 08/09 Specimen Type: BLOOD No comment entered. Ordering Provider: SKYLAR ARRIOLA Report Released Date/Time: Aug 09, 2022 09:43 AM Reporting Lab: [facility] [place] [facility] [address] [facility] [address] Performing Lab: [facility] [place] [facility] [address] [facility] [address] [place] [facility] [place] [facility] CBC AND DIFF (AUTO) BASOPHILS [#/VOLUME] IN BLOOD BY AUTOMATED COUNT 0.05 10*3/u L 0.01 - 0.13 08/09 Specimen Type: BLOOD No comment entered. Ordering Provider: SKYLAR ARRIOLA Report Released Date/Time: Aug 09, 2022 09:43 AM Reporting Lab: [facility] [place] [facility] [address] [facility] [address] Performing Lab: [place] [facility] [place] [facility] [address] [facility] [address] [place] [facility] [facility] CBC AND DIFF (AUTO) IMMATURE GRANULOCYTE S/100 LEUKOCYTES IN BLOOD BY AUTOMATED COUNT 0.2 0.0 - 0.7 08/09 Specimen Type: BLOOD No comment entered. Ordering Provider: SKYLAR ARRIOLA Report Released Date/Time: Aug 09, 2022 09:43 AM Reporting Lab: [facility] [place] [facility] [address] [facility] [address] Performing Lab: [facility] [place] [facility] [address] [facility] [address] [place] [facility] [place] [facility] CBC AND DIFF (AUTO) IMMATURE GRANULOCYTE S [#/VOLUME] IN BLOOD 0.02 10*3/u L 0.00 - 0.06 08/09 Specimen Type: BLOOD No comment entered. Ordering Provider: SKYLAR ARRIOLA Report Released Date/Time: Aug 09, 2022 09:43 AM Reporting Lab: [facility] [place] [facility] [address] [facility] [address] Performing Lab: [facility] [place] [address] [address] [place] [facility] [place] [facility] Vital Signs Combined list of inpatient and outpatient Vital Signs from Department of Defense and Veterans Affairs, ranging from 12 months to all on record, depending upon the facility. Vital Sign Value Date Comments Source SYSTOLIC BLOOD PRESSURE 131 04/17/20 24 10:06:11 [facility] [place] [facility] DIASTOLIC BLOOD PRESSURE 70 024 10:06:11 [facility] PULSE OXIMETRY 97 04/17/2024 10:06:11 [facility] WEIGHT 176 04/17/2024 10:06:11 [facility] BMI 28 kg/m2 04/17/2024 10:06:11 [facility] PAIN 0 04/17/2024 10:06:11 [facility] PULSE 63 04/17/2024 10:06:11 [facility] RESPIRATION 20 04/17/2024 10:06:11 [facility] Encounters Combined list of: 1) Encounters from [facility] facilities going backup to the last 18 months, not all [place] inpatient encounters are included; 2) Encounters 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, left eye SOSA,LACE Y J 12/18 [place] [facility] [place] [place] [facility] Outpatient [facility]counter [id number] 12/21 [facility] FIT SPECTACLES MONOFOCAL [id number] Diagnos is: ICD-10- CM Z46.0 Encount er for fit/adj st of spectac les and contact lenses MARIANNA GIBSNO 12/21 [facility] OFFICE O/P EST SF 10-19 MIN [id number] Diagnos is: ICD-10- CM E11.9 Type 2 diabete s mellitu s without complic ations Juan A MACHUCA 01/09 [facility] Out[facility] Encounter [id number] 01/10 [facility] HEARING AID REPAIR/MOD IFYING [id number] Diagnos is: ICD-10- CM Z46.1 Encount er for fitting and adjustm ent of hearing aid Huey PEREZ 01/16 [facility] REPAIR & ADJUST SPECTACLES [id number] Diagnos is: ICD-10- CM Z46.0 Encount er for fit/adj st of spectac les and contact lenses MARYLOU URIAS 01/19 [facility] Out[facility] En[facility] [id number] 02/07 [facility] [facility] En[facility] [id number] 02/20 [facility] Encounter [id number] 04/23 [facility] OFFICE O/P EST LOW 20-29 MIN [id number] Diagnos is: ICD-10- CM E11.22 Type 2 diabete s mellitu s w diabeti c chronic kidney disease SKYLAR LEMUS 05/03 [facility] HEARING AID REPAIR/MOD IFYING [id number] Diagnos is: ICD-10- CM H90.3 Sensori neural hearing loss, bilater al ,JOHNSON OLE L 05/24 [facility] Out[facility] Encounter [id number] 06/01 [facility] OFFICE O/P EST SF 10 MIN [id number] Diagnos is: ICD-10- CM E11.9 Type 2 diabete s mellitu s without complic ations Juan A MACHUCA 06/06 [facility] Out[facility] Encounter [id number] 09/24 [facility] Encounter [id number] 09/24 [facility] Out[facility] Encounter [id number] 10/22 [facility] Out[facility] Encounter [id number] Diagnos is: ICD-10- CM S46.911 A Strain unsp musc/fa sc/tend at shldr/u p arm, right arm, init CHASE,[facility] 10/24 [facility] DETERMINE REFRACTIVE STATE [id number] Diagnos is: ICD-10- CM E11.9 Type 2 diabete s mellitu s without complic ations JACK SOSA 12/24 [facility] CPTR OPHTH DX IMG POST SEGMT [id number] Diagnos is: ICD-10- CM 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 Diagnos is: ICD-10- CM Z13.89 Encount er for screeni ng for other disorde r DARCIE HAIR ICA A 02/06 [facility] TRIM NAIL(S) [id number] 1. Diagnos is: ICD-10- CM E11.9 Type 2 diabete s mellitu s without complic ations VICENTE MANZANO 02/06 [facility] Outpatient Encounter [id number] Diagnos is: ICD-10- CM L57.0 Actinic keratos is MARY ARIAS PH J 02/07 [facility] Out[facility] Encounter [id number] 02/07 [facility] Outpatient Encounter [id number] 02/10 [facility] OFFICE O/P EST MOD 30 MIN [id number] Diagnos is: ICD-10- CM E11.9 Type 2 diabete s mellitu s without complic ations DSKYLAR BELL 04/17 [facility] TRIM NAIL(S) [id number] Diagnos is: ICD-10- CM E11.9 Type 2 diabete s mellitu s without complic ations VICENTE MANZANO 06/09 [facility] Social History Combined list of available smoking, tobacco, and other social history from Department of Defense and Veterans Affairs facilities. Social History Type Response Date Comment Source Tobacco smoking status [facility] VA-TOBACCO USE FORMER CIGARETTES 04/17/2024 [facility] History of tobacco use VA-TOBACCO NEVER USED OTHER TYPE 04/17/2024 [facility] History of tobacco use VA-TOBACCO FORMER USER 05/03/2023 [facility] History of tobacco use VA-TOBACCO FORMER USER 10/26/2021 [facility] History of tobacco use VA-TOBACCO FORMER USER 08/19/2020 [facility] History of tobacco use VA-TOBACCO FORMER USER 05/21/2018 [facility] History of tobacco use VA-TOBACCO NEVER USED 05/21/2018 [facility] History of tobacco use QUIT TOBACCO USE > 7 YEARS AGO 05/09/2017 quit 35 yrs ago [facility] History of tobacco use LIFETIME NON-TOBACCO USER 05/09/2016 [facility] History of tobacco use QUIT TOBACCO USE > 7 YEARS AGO 05/06/2015 pt states he stopped smoking 20 yrs ago [facility] History of tobacco use QUIT TOBACCO USE > 7 YEARS AGO 04/05/2009 QUIT 15 YEARS AGO [facility] Plan of Care List of future care activities from Department of [facility] facilities. Additional future care activities may be listed in the Assessment and Plan section. Date/Time Care Activity Care Activity Detail Facili ty 09/23/2024 AMBULATORY - MEDICINE AMBULATORY - MEDICI NE [facility] 10/08/2024 AMBULATORY - MEDICINE AMBULATORY - MEDICI NE [facility] 10/30/2024 AMBULATORY - MEDICINE AMBULATORY - MEDICI NE [facility]
[2024-06-24 08:06] LABS: Prothrombin Time Whole Bld POC 31.9 sec (11.1-13.5); ~PT, ~INR - Anti Coag Clinic 2.7 (0.9-1.1)
--- NOTE | 2024-06-24 08:07 | MHC.OFFVISCO ---
Intake Intake Visit Reasons: Anticoagulation Allergies hydralazine [Hydralazine] Allergy (Unknown, Verified 06/24/24 08:01) SEVERE HEADACHE Medication List - Last Reconciled 06/24/24 by Elisa Kline, RN ascorbic acid (vitamin C) PO DAILY blood sugar diagnostic As directed blood sugar diagnostic (OneTouch Ultra Test strips) 1 strip miscellaneous BID 1 month bumetanide 1 mg PO Q OTHER DAY 90 days glipizide ER 2.5 mg PO DAILY 90 days lancets One Touch Ultra Test Strips As directed to test blood sugar twice a day. Ninety day supply lancets (OneTouch UltraSoft 2 Lancet) As directed levothyroxine 125 mcg PO DAILY lisinopril 5 mg PO DAILY 90 days meclizine 12.5 mg PO BID-QID PRN multivitamin (Daily Multi-Vitamin) PO pravastatin 40 mg PO DAILY tadalafil 5 mg PO DAILY 90 days tamsulosin 0.4 mg PO BEDTIME 90 days warfarin 4 mg See Protocol PO DAILY Nursing Note INR: 2.7 in therapeutic range of 2-3 Medications and supplements reviewed No changes in health, diet, medications, or supplements, Denies any signs and symptoms of bleeding or bruising or clotting. Bleeding, bruising, clotting discussed Nutritional guidance given Dose: 4mg X6 days and 2mg X 1 day F/U INR: 3 weeks Patient verbalizes understanding of instructions given Anti-Coag Initial Assessment Social Hx Patient Tobacco Use Status: Former Tobacco user alcohol intake: former Alcohol intake frequency: does not drink Coding Level of Care Code Est Patient Level 1 Diagnoses Current use of anticoagulant therapy Z79.01 Assessment & Plan Assessment & Plan (1) Current use of anticoagulant therapy: Comment: critical high INR Code(s): Z79.01 - half-way (current) use of 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
== END 2024-06-24 08:15 | disposition home or self-care (01) ==
LOC: HO.ACS 08:01
PROVIDERS: PCP Family Medicine; Visit Provider Internal Medicine
DX: Z79.01 Long term (current) use of anticoagulants (principal)

== ENCOUNTER → 2024-06-24 08:01 | Outpatient (BNVA) | payer BC, SELFPAY | PROVIDERS: PCP Family Medicine; Visit Provider Internal Medicine | DX: I48.0 Paroxysmal atrial fibrillation (principal); Z79.01 Long term (current) use of anticoagulants; Z51.81 Encounter for therapeutic drug level monitoring | CPT/HCPCS: 85610; 99211 ==

== ENCOUNTER 2024-07-15 07:58 | Outpatient (AMB) | payer BC, SELFPAY ==
[2024-07-15 08:10] LABS: Prothrombin Time Whole Bld POC 41.4 sec (11.1-13.5); ~PT, ~INR - Anti Coag Clinic 3.5 (0.9-1.1)
--- OUTSIDE RECORDS SUMMARY | 2024-07-15 08:10 | XMS_ITS | Clinical Summary ---
Author Organization [facility] Address [address] [place] [address] Phone Care Team Providers Care Oil Mixer Name Role Phone Patrick Muniz MD Primary [...] patient's age to complete this topic [place] [address] [place] [address] Care Teams Oil Mixer Relationship Specialty Start Date End Date Patrick Muniz MD [address] [place] [address] [place] [address] PCP - General Family Medicine 04/19/21
--- OUTSIDE RECORDS SUMMARY | 2024-07-15 08:10 | XMS_ITS | Continuity of Care Document ---
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) Active 05/07/19 19 Condition May 21, 2018 Entered By: MC DAN Comment: treated with finasteride [facility] Essential hypertension Active 05/07/19 09 Condition [facility] Hearing loss (SNOMED CT 70478221) Active 05/07/19 09 Condition [facility] HLD - Hyperlipidemia Active 05/07/19 09 Condition [facility] Hypothyroidism (SNOMED CT 78474183) Active 05/07/19 09 Condition [facility] Diabetes Mellitus Type 2 (SCT 32089800) Active Condition Apr 17, 2024 Entered By: SKYLAR GREGORY Comment: vet under care of community PCP/ Dr Sheldon Muniz- good glycemic control [facility] History of actinic keratosis Active Condition Feb 08, 2024 Entered By: SKYLAR GREGORY Comment: see tele derm-lesions on right side of face/ vet needs cryotx per derm [facility] Low Back Pain (SCT 795122806) Active Condition Oct 26, 2021 Entered By: [...] Diagnosis: ICD-10-CM L57.0 Actinic keratosis Active Diagnosis [facility] Diagnosis: ICD-10-CM Z13.89 Encounter for screening for [...] aid Active Diagnosis [facility] [place] [facility] Medications Combined list of outpatient medications from [...] ORAL ACTIVE D'ALESSAN KERI MIRANDA G 2023 [facility] BUMETANIDE 1MG TAB TAKE ONE TABLET BY MOUTH ONCE DAILY ORAL ACTIVE D'ALESSAN RUBENKERI G 2023 [facility] CARBOXYMETH YLCELLULOSE NA 0.5% SOLN,OPH INSTILL 1 DROP INTO EACH EYE FOUR TIMES A DAY FOR DRY EYE OPHTHA LMIC ACTIVE 12/25/2024 [id number] 4 SOSA,LAC EY J 2023 45 [facility] GLIPIZIDE 5MG TAB TAKE ONE-HALF TABLET BY MOUTH ORAL ACTIVE D'ALESSAN KERI MIRANDA G 2023 [facility] LEVOTHYROXI NE NA 125MCG TAB (SYNTHROID) TAKE ONE TABLET BY MOUTH QD ORAL ACTIVE D'ALESSAN KERI MIRANDA G 2023 [facility] LISINOPRIL 10MG TAB TAKE ONE TABLET BY MOUTH ONCE DAILY ORAL ACTIVE D'ALESSAN RUBENKERI CASAREZ G 2023 [facility] PRAVASTATIN NA 40MG TAB TAKE ONE TABLET BY MOUTH AT BEDTIME ORAL ACTIVE PRASHANT DAN 2009 [facility] [place] [facility] Immunizations Combined list of available immunizations from the Department of Defense and Veterans Affairs facilities. 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 Status Comments Source INFLUENZA, UNSPECIFIED FORMULATION 2023 88 complet ed [facility] [place] [facility] INFLUENZA, UNSPECIFIED FORMULATION 2021 88 complet ed [facility] COVID-19 (MODERNA), MRNA, LNP-S, PF, 100 MCG OR 50 MCG DOSE 3 2020 207 complet ed MOD; [id number]; 2 [facility] COVID-19 (MODERNA), MRNA, LNP-S, PF, 100 MCG/0.5 ML DOSE 2 2020 207 complet ed MOD; [id number]; 1 [facility] COVID-19 (MODERNA), MRNA, LNP-S, PF, 100 MCG/0.5 ML DOSE 1 2020 207 complet ed MOD; [id number]; 1 [facility] [...] [facility] [place] [facility] [facility] FLU,3 YRS (HISTORICAL[facility] 2008 88 complet ed [facility] PNEUMOCOCCAL, UNSPECIFIED FORMULATION 2003 109 complet ed [facility] Results Combined list of recent chemistry, hematology [...] Aug 09, 2022 09:43 AM Reporting Lab: [facility] [address] [facility] [address] Performing Lab: [facility] [address] [facility] [address] [facility] HEMOGLOBI N A1C PANEL HEMOGLOBIN A1C/HEMOGLO [...] Aug 09, 2022 09:43 AM Reporting Lab: [facility] [address] [facility] [address] Performing Lab: [facility] [address] [facility] [address] [facility] BASIC METABOLIC PANEL (non-fast ing) UREA NITROGEN [MASS/VOLUM E] IN SERUM OR PLASMA 27 mg/dL 7 - 25 08/09 H Specimen Type: SERUM Comment: BUN Verified by repeat analysis. Ordering Provider: SKYLAR ARRIOLA Report Released Date/Time: Aug 09, 2022 09:43 AM Reporting Lab: [facility] [address] [address] Performing Lab: [facility] [address] [address] [facility] BASIC METABOLIC PANEL (non-fast ing) GLUCOSE [MASS/VOLUM E] IN SERUM OR PLASMA 126 mg/dL 65 - 100 08/09 H Specimen Type: SERUM Comment: BUN Verified by repeat analysis. Ordering Provider: SKYLAR ARRIOLA Report Released Date/Time: Aug 09, 2022 09:43 AM Reporting Lab: [facility] [address] [address] Performing Lab: [facility] [address] [address] [facility] BASIC METABOLIC PANEL (non-fast ing) SODIUM [MOLES/VOLU ME] IN SERUM OR PLASMA 142 mmol/L 135 - 145 08/09 Specimen Type: SERUM Comment: BUN Verified by repeat analysis. Ordering Provider: SKYLAR ARRIOLA Report Released Date/Time: Aug 09, 2022 09:43 AM Reporting Lab: [facility] [address] [address] Performing [facility] [address] [address] [facility] BASIC METABOLIC PANEL (non-fast ing) POTASSIUM [MOLES/VOLU ME] IN SERUM OR PLASMA 4.6 mmol/L 3.5 - 5.0 08/09 Specimen Type: SERUM Comment: BUN Verified by repeat analysis. Ordering Provider: SKYLAR ARRIOLA Report Released Date/Time: Aug 09, 2022 09:43 AM Reporting Lab: [facility] [address] [address] Performing Lab: [facility] [address] [facility] [address] [facility] BASIC METABOLIC PANEL (non-fast ing) CHLORIDE [MOLES/VOLU ME] IN SERUM OR PLASMA 105 mmol/L 100 - 110 08/09 Specimen Type: SERUM Comment: BUN Verified by repeat analysis. Ordering Provider: SKYLAR ARRIOLA Report Released Date/Time: Aug 09, 2022 09:43 AM Reporting Lab: [facility] [address] [address] Performing Lab: [address] [address] [facility] BASIC METABOLIC PANEL (non-fast ing) CARBON DIOXIDE, TOTAL [MOLES/VOLU ME] IN SERUM OR PLASMA 26 meq/L 20 - 30 08/09 Specimen Type: SERUM Comment: BUN Verified by repeat analysis. Ordering Provider: SKYLAR ARRIOLA Report Released Date/Time: Aug 09, 2022 09:43 AM Reporting Lab: [address] [address] Performing Lab: [address] [address] [facility] BASIC METABOLIC PANEL (non-fast ing) CREATININE [MASS/VOLUM E] IN SERUM OR PLASMA 1.92 mg/dL 0.50 - 1.40 08/09 H Specimen Type: SERUM Comment: BUN Verified by repeat analysis. Ordering Provider: SKYLAR ARRIOLA Report Released Date/Time: Aug 09, 2022 09:43 AM Reporting Lab: [facility] [address] [address] Performing Lab: [facility] [address] [address] [facility] BASIC METABOLIC PANEL (non-fast ing) GLOMERULAR FILTRATION RATE/1.73 SQ M.PREDICTED [VOLUME RATE/AREA] IN SERUM, PLASMA OR BLOOD BY CREATININE- BASED FORMULA (CKD-EPI) 33 mL/min 60 08/09 L Specimen Type: SERUM Comment: BUN Verified by repeat analysis. Ordering Provider: SKYLAR ARRIOLA Report Released Date/Time: Aug 09, 2022 09:43 AM Reporting Lab: [facility] [place] [address] [address] Performing Lab: [facility] [address] [address] [facility] LIVER FUNCTION PROTEIN [MASS/VOLUM E] IN SERUM OR PLASMA 7.5 g/dL 6.0 - 8.3 08/09 Specimen Type: SERUM Comment: BUN Verified by repeat analysis. Ordering Provider: SKYLAR ARRIOLA Report Released Date/Time: Aug 09, 2022 09:43 AM Reporting Lab: [facility] [place] [address] Performing Lab: [facility] [place] [address] [address] [facility] LIVER FUNCTION ALBUMIN [MASS/VOLUM E] IN SERUM OR PLASMA 4.6 g/dL 3.5 - 5.0 08/09 Specimen Type: SERUM Comment: BUN Verified by repeat analysis. Ordering Provider: SKYLAR ARRIOLA Report Released Date/Time: Aug 09, 2022 09:43 AM Reporting Lab: [facility] [address] [address] Performing Lab: [facility] [address] [address] [facility] LIVER FUNCTION ALKALINE PHOSPHATASE [ENZYMATIC ACTIVITY/VO LUME] IN SERUM OR PLASMA 87 U/L 40 - 150 08/09 Specimen Type: SERUM Comment: BUN Verified by repeat analysis. Ordering Provider: SKYLAR ARRIOLA Report Released Date/Time: Aug 09, 2022 09:43 AM Reporting Lab: [facility] [address] Performing Lab: [facility] [place] [facility] [address] [facility] [address] [facility] [facility] LIVER FUNCTION ASPARTATE AMINOTRANSF ERASE [ENZYMATIC ACTIVITY/VO LUME] IN SERUM OR PLASMA 34 U/L 5 - 34 08/09 Specimen Type: SERUM Comment: BUN Verified by repeat analysis. Ordering Provider: SKYLAR ARRIOLA Report Released Date/Time: Aug 09, 2022 09:43 AM Reporting Lab: [facility] [place] [facility] [address] [facility] [address] Performing Lab: [facility] [place] [facility] [address] [facility] [address] [facility] [place] [facility] LIVER FUNCTION ALANINE AMINOTRANSF ERASE [ENZYMATIC ACTIVITY/VO LUME] IN SERUM OR PLASMA 35 U/L 6 - 55 08/09 Specimen Type: SERUM Comment: BUN Verified by repeat analysis. Ordering Provider: SKYLAR ARRIOLA Report Released Date/Time: Aug 09, 2022 09:43 AM Reporting Lab: [facility] [place] [facility] [address] [facility] [address] Performing Lab: [facility] [place] [facility] [address] [facility] [address] [facility] [facility] LIVER FUNCTION BILIRUBIN.T OTAL [MASS/VOLUM E] IN SERUM OR PLASMA 0.6 mg/dL 0.2 - 1.2 08/09 Specimen Type: SERUM Comment: BUN Verified by repeat analysis. Ordering Provider: SKYLAR ARRIOLA Report Released Date/Time: Aug 09, 2022 09:43 AM Reporting Lab: [facility] [place] [address] [address] Performing Lab: [facility] [place] [address] [address] [facility] [facility] TSH THYROTROPIN [UNITS/VOLU ME] IN SERUM OR PLASMA 11.71 u[IU]/ mL 0.35 - 5.00 08/09 H Specimen Type: SERUM Comment: BUN Verified by repeat analysis. Ordering Provider: SKYLAR ARRIOLA Report Released Date/Time: Aug 09, 2022 09:43 AM Reporting Lab: [facility] [place] [address] [address] Performing Lab: [facility] [place] [address] [address] [facility] [facility] CBC AND DIFF (AUTO) LEUKOCYTES [#/VOLUME] IN BLOOD BY AUTOMATED COUNT 9.01 10*3/u L 4.50 - 11.00 08/09 Specimen Type: BLOOD No comment entered. Ordering Provider: SKYLAR ARRIOLA Report Released Date/Time: Aug 09, 2022 09:43 AM Reporting Lab: [facility] [place] [address] [address] Performing Lab: [facility] [place] [address] [address] [facility] [place] [facility] CBC AND DIFF (AUTO) ERYTHROCYTE S [#/VOLUME] IN BLOOD BY AUTOMATED COUNT 3.97 10*6/u L 4.23 - 5.66 08/09 L Specimen Type: BLOOD No comment entered. Ordering Provider: SKYLAR ARRIOLA Report Released Date/Time: Aug 09, 2022 09:43 AM Reporting Lab: [facility] [place] [address] [address] Performing Lab: [facility] [place] [address] [address] [facility] [place] [facility] CBC AND DIFF (AUTO) HEMOGLOBIN [MASS/VOLUM E] IN BLOOD 14.1 g/dL 12.8 - 17 08/09 Specimen Type: BLOOD No comment entered. Ordering Provider: SKYLAR ARRIOLA Report Released Date/Time: Aug 09, 2022 09:43 AM Reporting Lab: [facility] [place] [address] [address] Performing Lab: [facility] [place] [address] [address] [facility] [place] [facility] CBC AND DIFF (AUTO) HEMATOCRIT [VOLUME FRACTION] OF BLOOD BY AUTOMATED COUNT 41.5 39.2 - 50.4 08/09 Specimen Type: BLOOD No comment entered. Ordering Provider: SKYLAR ARRIOLA Report Released Date/Time: Aug 09, 2022 09:43 AM Reporting Lab: [facility] [place] [facility] [address] [facility] [address] Performing Lab: [facility] [place] [facility] [address] [facility] [address] [facility] [place] [facility] CBC AND DIFF (AUTO) MCV [ENTITIC VOLUME] BY AUTOMATED COUNT 104.5 fL 82 - 99 08/09 H Specimen Type: BLOOD No comment entered. Ordering Provider: SKYLAR ARRIOLA Report Released Date/Time: Aug 09, 2022 09:43 AM Reporting Lab: [facility] [place] [address] [address] Performing Lab: [facility] [place] [address] [address] [facility] [place] [facility] CBC AND DIFF (AUTO) MCHC [MASS/VOLUM E] BY AUTOMATED COUNT 34.0 g/dL 30.8 - 35.1 08/09 Specimen Type: BLOOD No comment entered. Ordering Provider: SKYLAR ARRIOLA Report Released Date/Time: Aug 09, 2022 09:43 AM Reporting Lab: [facility] [place] [address] [address] Performing Lab: [facility] [place] [address] [address] [facility] [place] [facility] CBC AND DIFF (AUTO) PLATELETS [#/VOLUME] IN BLOOD BY AUTOMATED COUNT 174 10*3/u L 140 - 360 08/09 Specimen Type: BLOOD No comment entered. Ordering Provider: SKYLAR ARRIOLA Report Released Date/Time: Aug 09, 2022 09:43 AM Reporting Lab: [facility] [place] [facility] [address] [facility] [address] Performing Lab: [facility] [place] [facility] [address] [facility] [address] [facility] CBC AND DIFF (AUTO) ERYTHROCYTE DISTRIBUTIO N WIDTH [RATIO] BY AUTOMATED COUNT 13.2 12.0 - 16.0 08/09 Specimen Type: BLOOD No comment entered. Ordering Provider: SKYLAR ARRIOLA Report Released Date/Time: Aug 09, 2022 09:43 AM Reporting Lab: [facility] [place] [facility] [address] [facility] [address] Performing Lab: [facility] [place] [facility] [address] [facility] [address] [facility] CBC AND DIFF (AUTO) MONOCYTES [#/VOLUME] IN BLOOD BY AUTOMATED COUNT 0.55 10*3/u L 0.30 - 1.10 08/09 Specimen Type: BLOOD No comment entered. Ordering Provider: SKYLAR ARRIOLA Report Released Date/Time: Aug 09, 2022 09:43 AM Reporting Lab: [facility] [place] [facility] [address] [facility] [address] Performing Lab: [facility] [place] [facility] [address] [facility] [address] [facility] CBC AND DIFF (AUTO) MCH [ENTITIC MASS] BY AUTOMATED COUNT 35.5 pg 26.2 - 32.6 08/09 H Specimen Type: BLOOD No comment entered. Ordering Provider: SKYLAR ARRIOLA Report Released Date/Time: Aug 09, 2022 09:43 AM Reporting Lab: [facility] [place] [facility] [address] [facility] [address] Performing Lab: [facility] [place] [facility] [address] [facility] [address] [facility] CBC AND DIFF (AUTO) NEUTROPHILS /100 LEUKOCYTES IN BLOOD BY AUTOMATED COUNT 73.2 43.7 - 75.8 08/09 Specimen Type: BLOOD No comment entered. Ordering Provider: SKYLAR ARRIOLA Report Released Date/Time: Aug 09, 2022 09:43 AM Reporting Lab: [facility] [address] [facility] [address] Performing Lab: [facility] [address] [facility] [address] [facility] CBC AND DIFF (AUTO) LYMPHOCYTES /100 LEUKOCYTES IN BLOOD BY AUTOMATED COUNT 17.9 14.0 - 42.3 08/09 Specimen Type: BLOOD No comment entered. Ordering Provider: SKYLAR ARRIOLA Report Released Date/Time: Aug 09, 2022 09:43 AM Reporting Lab: [facility] [place] [address] [facility] [address] Performing Lab: [facility] [address] [facility] [address] [facility] [place] [facility] CBC AND DIFF (AUTO) MONOCYTES/1 00 LEUKOCYTES IN BLOOD BY AUTOMATED COUNT 6.1 5.1 - 13.7 08/09 Specimen Type: BLOOD No comment entered. Ordering Provider: SKYLAR ARRIOLA Report Released Date/Time: Aug 09, 2022 09:43 AM Reporting Lab: [facility] [address] [facility] [address] Performing Lab: [facility] [place] [address] [facility] [address] [facility] CBC AND DIFF (AUTO) EOSINOPHILS /100 LEUKOCYTES IN BLOOD BY AUTOMATED COUNT 2.0 0.4 - 6.8 08/09 Specimen Type: BLOOD No comment entered. Ordering Provider: SKYLAR ARRIOLA Report Released Date/Time: Aug 09, 2022 09:43 AM Reporting Lab: [facility] [place] [facility] [address] [facility] [address] Performing Lab: [facility] [place] [facility] [address] [facility] [address] [facility] [place] [facility] CBC AND DIFF (AUTO) BASOPHILS/1 00 LEUKOCYTES IN BLOOD BY AUTOMATED COUNT 0.6 0.1 - 2.0 08/09 Specimen Type: BLOOD No comment entered. Ordering Provider: SKYLAR ARRIOLA Report Released Date/Time: Aug 09, 2022 09:43 AM Reporting Lab: [facility] [place] [address] [address] Performing Lab: [facility] [place] [address] [address] [facility] [place] [facility] CBC AND DIFF (AUTO) NEUTROPHILS [#/VOLUME] IN BLOOD BY AUTOMATED COUNT 6.60 10*3/u L 2.20 - 7.60 08/09 Specimen Type: BLOOD No comment entered. Ordering Provider: SKYLAR ARRIOLA Report Released Date/Time: Aug 09, 2022 09:43 AM Reporting Lab: [facility] [place] [address] [address] Performing Lab: [facility] [place] [address] [address] [facility] [place] [facility] CBC AND DIFF (AUTO) LYMPHOCYTES [#/VOLUME] IN BLOOD BY AUTOMATED COUNT 1.61 10*3/u L 1.00 - 3.20 08/09 Specimen Type: BLOOD No comment entered. Ordering Provider: SKYLAR ARRIOLA Report Released Date/Time: Aug 09, 2022 09:43 AM Reporting Lab: [facility] [place] [facility] [address] [facility] [address] Performing Lab: [facility] [place] [address] [address] [facility] [place] [facility] CBC AND DIFF (AUTO) EOSINOPHILS [#/VOLUME] IN BLOOD BY AUTOMATED COUNT 0.18 10*3/u L 0.03 - 0.44 08/09 Specimen Type: BLOOD No comment entered. Ordering Provider: SKYLAR ARRIOLA Report Released Date/Time: Aug 09, 2022 09:43 AM Reporting Lab: [facility] [place] [facility] [address] [facility] [address] Performing Lab: [facility] [place] [facility] [address] [facility] [address] [facility] [place] [facility] CBC AND DIFF (AUTO) BASOPHILS [#/VOLUME] IN BLOOD BY AUTOMATED COUNT 0.05 10*3/u L 0.01 - 0.13 08/09 Specimen Type: BLOOD No comment entered. Ordering Provider: SKYLAR ARRIOLA Report Released Date/Time: Aug 09, 2022 09:43 AM Reporting Lab: [facility] [place] [facility] [address] [facility] [address] Performing Lab: [facility] [place] [facility] [address] [facility] [address] [facility] [place] [facility] CBC AND DIFF (AUTO) IMMATURE GRANULOCYTE S/100 LEUKOCYTES IN BLOOD BY AUTOMATED COUNT 0.2 0.0 - 0.7 08/09 Specimen Type: BLOOD No comment entered. Ordering Provider: SKYLAR ARRIOLA Report Released Date/Time: Aug 09, 2022 09:43 AM Reporting Lab: [facility] [place] [facility] [address] [facility] [address] Performing Lab: [facility] [address] [facility] [address] [facility] CBC AND DIFF (AUTO) IMMATURE GRANULOCYTE S [#/VOLUME] IN BLOOD 0.02 10*3/u L 0.00 - 0.06 08/09 Specimen Type: BLOOD No comment entered. Ordering Provider: SKYLAR ARRIOLA Report Released Date/Time: Aug 09, 2022 09:43 AM Reporting Lab: [facility] [address] [facility] [address] Performing Lab: [facility] [address] [address] [facility] Vital Signs Combined list of inpatient and [...] 04/17/2024 10:06:11 [facility] Encounters Combined list of: 1) Encounters from [facility] facilities going backup to the last 18 months, not all ID inpatient encounters are included; 2) Encounters 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 Location Location Details Encounter Type Encounter Number Reason For Visit Attending Provider ADM Date DC Date Status Disposition Source [facility] HEARING AID REPAIR/MOD IFYING [id number] Diagnos is: ICD-10- CM Z46.1 Encount er for fitting and adjustm ent of hearing aid Huey PEREZ 01/16 [facility] REPAIR & ADJUST SPECTACLES [id number] Diagnos is: ICD-10- CM Z46.0 Encount er for fit/adj st of spectac les and contact lenses MARYLOU URIAS 01/19 [facility] Outpatient [facility]counter [id number] 02/07 [facility]counter [id number] 02/20 [facility] Encounter [id number] 04/23 [facility] OFFICE O/P EST LOW 20-29 MIN [id number] Diagnos is: ICD-10- CM E11.22 Type 2 diabete s mellitu s w diabeti c chronic kidney disease SKYLAR LEMUS 05/03 [facility] HEARING AID REPAIR/MOD IFYING [id number] Diagnos is: ICD-10- CM H90.3 Sensori neural hearing loss, bilater al ,JOHNSON OLE L 05/24 [facility] Outpatient Encounter [id number] 06/01 [facility] OFFICE O/P EST SF 10 MIN [id number] Diagnos is: ICD-10- CM E11.9 Type 2 diabete s mellitu s without complic ations Juan A MACHUCA 06/06 [facility] Outpatient Encounter [id number] 09/24 [facility] Out[facility] Encounter [id number] 09/24 [facility] Out[facility] Encounter [id number] 10/22 [facility] Out[facility] Encounter [id number] Diagnos is: ICD-10- CM S46.911 A Strain unsp musc/fa sc/tend at shldr/u p arm, right arm, init CHASE,[employer] 10/24 [facility] DETERMINE REFRACTIVE STATE [id number] Diagnos is: ICD-10- CM E11.9 Type 2 diabete s mellitu s without complic ations SOSA,LACE Y J 12/24 [facility] CPTR OPHTH DX IMG POST SEGMT [id number] Diagnos is: ICD-10- CM 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 Diagnos is: ICD-10- CM Z13.89 Encount er for screeni ng for other disorde r DARCIE HAIR ICA A 02/06 [facility] TRIM NAIL(S) [id number] 1. Diagnos is: ICD-10- CM E11.9 Type 2 diabete s mellitu s without complic ations VICENTE MANZANO GAMALIEL 02/06 [facility] Outpatient Encounter [id number] Diagnos is: ICD-10- CM L57.0 Actinic keratos is JUANA,MARY PH J 02/07 [facility] Outpatient Encounter [id number] 1.02/07 [facility] Outpatient [facility]counter [id number] 02/10 [facility] OFFICE O/P EST MOD 30 MIN [id number] Diagnos is: ICD-10- CM E11.9 Type 2 diabete s mellitu s without complic ations SKYLAR LEMUS 04/17 [facility] TRIM NAIL(S) [id number] Diagnos is: ICD-10- CM E11.9 Type 2 diabete s mellitu s without complic ations VICENTE MANZANO GAMALIEL 06/09 [facility] Social History Combined list of available smoking, tobacco, and other social history from Department of Defense and Veterans Affairs facilities. Social History Type Response Date Comment Source Tobacco smoking status MIIS VA-TOBACCO NEVER USED OTHER TYPE 04/17/2024 [facility] History of tobacco use VA-TOBACCO USE FORMER CIGARETTES 04/17/2024 [facility] History of tobacco use VA-TOBACCO FORMER USER 05/03/2023 [facility] History of tobacco use VA-TOBACCO FORMER USER 10/26/2021 [facility] History of tobacco use VA-TOBACCO FORMER USER 08/19/2020 [facility] of [facility] 15 YRS OR MORE 05/21/2018 [facility] [place] [facility] History [facility] tobacco use [facility] NEVER [facility] 05/21[facility] [facility] History [facility] tobacco use QUIT TOBACCO USE > 7 YEARS AGO 05/09/2017 quit 35 yrs ago [facility] [place] [facility] History of tobacco use LIFETIME NON-TOBACCO USER 05/09/2016 [facility] [place] [facility] History of tobacco use QUIT TOBACCO USE > 7 YEARS AGO 05/06/2015 pt states he stopped smoking 20 yrs ago [facility] [place] [facility] History of tobacco use QUIT TOBACCO USE > 7 YEARS AGO 04/05/2009 QUIT 15 YEARS AGO [facility] [place] [facility] Plan of Care List of future care activities from Department of Veterans Affairs facilities. Additional future care activities may be listed in the Assessment and Plan section. Date/Time Care Activity Care Activity Detail Facili ty 09/23/2024 AMBULATORY - MEDICINE AMBULATORY - MEDICI NE [facility] [place] [facility] 10/08/2024 AMBULATORY - MEDICINE AMBULATORY - [facility] [place] [facility] 10/30/2024 AMBULATORY - MEDICINE AMBULATORY - MEDICI NE [facility] [place] [facility] 12/30/2024 AMBULATORY - MEDICINE [facility] [place] [facility]
--- NOTE | 2024-07-15 08:16 | MHC.OFFVISCO ---
Intake Intake Visit Reasons: Anticoagulation Allergies hydralazine [Hydralazine] Allergy (Unknown, Verified 07/15/24 08:04) SEVERE HEADACHE Medication List - Last Reconciled 07/15/24 by Elisa Kline RN amlodipine 2.5 mg PO DAILY 90 days ascorbic acid (vitamin C) PO DAILY blood sugar diagnostic As directed blood sugar diagnostic (OneTouch Ultra Test strips) 1 strip miscellaneous BID 1 month bumetanide 1 mg PO Q OTHER DAY 90 days glipizide ER 2.5 mg PO DAILY 90 days lancets One Touch Ultra Test Strips As directed to test blood sugar twice a day. Ninety day supply lancets (OneTouch UltraSoft 2 Lancet) As directed levothyroxine 125 mcg PO DAILY lisinopril 5 mg PO DAILY 90 days meclizine 12.5 mg PO BID-QID PRN multivitamin (Daily Multi-Vitamin) PO pravastatin 40 mg PO DAILY tadalafil 5 mg PO DAILY 90 days tamsulosin 0.4 mg PO BEDTIME 90 days warfarin 4 mg See Protocol PO DAILY Nursing Note Pt to [facility] ambulates well, ernesto steady, alert and oriented. Status: Denies changes in health, diet, medications or supplements. Denies symptoms of bleeding, bruising or clotting. INR: 3.5 Therapeutic Range: 2-3 Dose: decrease today's dose to 2mg (4mg) then usual dose of 4mg X 6 days and 2mg X 1 day (Sun) Nutritional Guidance: Review food list weekly, especially during the holidays, seasonal changes and celebrations. Continue to eat a consistent and balanced diet to keep INR in therapeutic range. Follow-up Appointment: 2 weeks Patient verbalizes understanding of instructions given regarding dosing, diet and next follow-up appointment with read back. Anti-Coag Initial Assessment Social Hx Patient Tobacco Use Status: Former Tobacco user alcohol intake: former Alcohol intake frequency: does not drink Coding Level of Care Code Est Patient Level 1 Diagnoses Current use of anticoagulant therapy Z79.01 Results AMB INR Fingerstick AMB INR Fingerstick 3.5 Last Edit by Elisa Kline RN on 07/15/24 08:10 interface delay Assessment & Plan Assessment & Plan (1) Current use of anticoagulant therapy: Comment: critical high INR Code(s): Z79.01 - FDC (current) use of 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
== END 2024-07-15 08:21 | disposition home or self-care (01) ==
LOC: HO.ACS 07:58
PROVIDERS: PCP Family Medicine; Visit Provider Internal Medicine
DX: Z79.01 Long term (current) use of anticoagulants (principal)

== ENCOUNTER → 2024-07-15 07:58 | Outpatient (BNVA) | payer BC, SELFPAY | PROVIDERS: PCP Family Medicine; Visit Provider Internal Medicine | DX: I48.0 Paroxysmal atrial fibrillation (principal); Z79.01 Long term (current) use of anticoagulants; Z51.81 Encounter for therapeutic drug level monitoring | CPT/HCPCS: 85610; 99211 ==

== ENCOUNTER 2024-07-24 08:59 | Outpatient (AMB) | payer BC, SELFPAY ==
--- OUTSIDE RECORDS SUMMARY | 2024-07-24 09:32 | XMS_ITS | Continuity of Care Document ---
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) Active 05/07/19 19 Condition May 21, 2018 Entered By: MC DAN Comment: treated with finasteride [facility] Essential hypertension Active 05/07/19 09 Condition [facility] Hearing loss (SNOMED CT 95286218) Active 05/07/19 09 Condition [facility] HLD - Hyperlipidemia Active 05/07/19 09 Condition [facility] Hypothyroidism (SNOMED CT 36227190) Active 05/07/19 09 Condition [facility] Diabetes Mellitus Type 2 (SCT 53873714) Active Condition Apr 17, 2024 Entered By: SKYLAR GREGORY Comment: vet under care of community PCP/ Dr Sheldon Muniz- good glycemic control [facility] History of actinic keratosis Active Condition Feb 08, 2024 Entered By: SKYLAR GREGORY Comment: see tele derm-lesions on right side of face/ vet needs cryotx per derm [facility] Low Back Pain (SCT 499745547) Active Condition Oct 26, 2021 Entered By: [...] Diagnosis: ICD-10-CM L57.0 Actinic keratosis Active Diagnosis [facility] Diagnosis: ICD-10-CM Z13.89 Encounter for [...] ONCE DAILY ORAL ACTIVE D'ALESSAN KERI MIRANDA 2023 [facility] BUMETANIDE 1MG TAB TAKE ONE TABLET BY MOUTH ONCE DAILY ORAL ACTIVE D'ALESSAN KERI MIRANDA 2023 [facility] CARBOXYMETH YLCELLULOSE NA 0.5% SOLN,OPH INSTILL 1 DROP INTO EACH EYE FOUR TIMES A DAY FOR DRY EYE OPHTHA LMIC ACTIVE 12/25/2024 [id number] SOSA,LAC EY J 2023 45 [facility] GLIPIZIDE 5MG TAB TAKE ONE-HALF TABLET BY MOUTH ORAL ACTIVE D'ALESSAN KERI MIRANDA 2023 [facility] LEVOTHYROXI NE NA 125MCG TAB (SYNTHROID) TAKE ONE TABLET BY MOUTH QD ORAL ACTIVE D'ALESSAN KERI MIRANDA 2023 [facility] LISINOPRIL 10MG TAB TAKE ONE TABLET BY MOUTH ONCE DAILY ORAL ACTIVE D'ALESSAN KERI MIRANDA 2023 [facility] PRAVASTATIN NA 40MG TAB TAKE ONE TABLET BY MOUTH AT BEDTIME ORAL ACTIVE PRASHANT DAN 2009 [facility] Immunizations Combined list of available immunizations from the Department of Defense and Veterans Affairs facilities. Immunization Series Date Given Administered By Site Reaction Lot Number CVX Code Drug Gyro Compass Tester Status Comments Source INFLUENZA, UNSPECIFIED FORMULATION 2023 88 complet ed [facility] INFLUENZA, UNSPECIFIED FORMULATION 2021 88 complet ed [facility] COVID-19 (MODERNA), MRNA, LNP-S, PF, 100 MCG OR 50 MCG DOSE 3 2020 207 complet ed MOD; [id number]; 2 [facility] COVID-19 (MODERNA), MRNA, LNP-S, PF, 100 MCG/0.5 ML DOSE 2 2020 207 complet ed MOD; [id number]; 1 [facility] COVID-19 (MODERNA), MRNA, LNP-S, PF, 100 MCG/0.5 ML DOSE 1 2020 207 complet ed MOD; [id number]; 1 [facility] [...] ed received in community flu clinic at [facility] FLU,3 [...] Aug 09, 2022 09:43 AM Reporting Lab: [facility] [address] [address] Performing Lab: [facility] [address] [facility] [address] [facility] HEMOGLOBI N A1C PANEL HEMOGLOBIN [...] Aug 09, 2022 09:43 AM Reporting Lab: [address] [address] Performing Lab: [facility] [address] [address] [facility] TSH THYROTROPIN [UNITS/VOLU ME] IN SERUM OR PLASMA 11.71 u[IU]/ mL 0.35 - 5.00 08/09 H Specimen Type: SERUM Comment: BUN Verified by repeat analysis. Ordering Provider: SKYLAR ARRIOLA Report Released Date/Time: Aug 09, 2022 09:43 AM Reporting Lab: [address] [address] Performing Lab: [facility] [place] [facility] [address] [facility] [address] [facility] LIVER FUNCTION PROTEIN [MASS/VOLUM E] IN SERUM OR PLASMA 7.5 g/dL 6.0 - 8.3 08/09 Specimen Type: SERUM Comment: BUN Verified by repeat analysis. Ordering Provider: SKYLAR ARRIOLA Report Released Date/Time: Aug 09, 2022 09:43 AM Reporting Lab: [facility] [place] [facility] [address] [address] Performing Lab: [facility] [place] [facility] [address] [facility] [address] [facility] LIVER FUNCTION ALBUMIN [MASS/VOLUM E] IN SERUM OR PLASMA 4.6 g/dL 3.5 - 5.0 08/09 Specimen Type: SERUM Comment: BUN Verified by repeat analysis. Ordering Provider: SKYLAR ARRIOLA Report Released Date/Time: Aug 09, 2022 09:43 AM Reporting Lab: [facility] [place] [facility] [address] [address] Performing Lab: [facility] [place] [facility] [address] [facility] [address] [facility] LIVER FUNCTION ALKALINE PHOSPHATASE [ENZYMATIC ACTIVITY/VO LUME] IN SERUM OR PLASMA 87 U/L 40 - 150 08/09 Specimen Type: SERUM Comment: BUN Verified by repeat analysis. Ordering Provider: SKYLAR ARRIOLA Report Released Date/Time: Aug 09, 2022 09:43 AM Reporting Lab: [facility] [place] [facility] [address] [address] Performing Lab: [facility] [place] [facility] [address] [facility] [address] [facility] LIVER FUNCTION ASPARTATE AMINOTRANSF ERASE [ENZYMATIC ACTIVITY/VO LUME] IN SERUM OR PLASMA 34 U/L 5 - 34 08/09 Specimen Type: SERUM Comment: BUN Verified by repeat analysis. Ordering Provider: SKYLAR ARRIOLA Report Released Date/Time: Aug 09, 2022 09:43 AM Reporting Lab: [facility] [place] [facility] [address] [address] Performing Lab: [facility] [place] [facility] [address] [facility] [address] [facility] LIVER FUNCTION ALANINE AMINOTRANSF ERASE [ENZYMATIC ACTIVITY/VO LUME] IN SERUM OR PLASMA 35 U/L 6 - 55 08/09 Specimen Type: SERUM Comment: BUN Verified by repeat analysis. Ordering Provider: SKYLAR ARRIOLA Report Released Date/Time: Aug 09, 2022 09:43 AM Reporting Lab: [facility] [place] [address] [address] Performing Lab: [facility] [place] [address] [address] [facility] LIVER FUNCTION BILIRUBIN.T OTAL [MASS/VOLUM E] IN SERUM OR PLASMA 0.6 mg/dL 0.2 - 1.2 08/09 Specimen Type: SERUM Comment: BUN Verified by repeat analysis. Ordering Provider: SKYLAR ARRIOLA Report Released Date/Time: Aug 09, 2022 09:43 AM Reporting Lab: [facility] [place] [address] [address] Performing Lab: [facility] [place] [address] [address] [facility] BASIC METABOLIC PANEL (non-fast ing) UREA NITROGEN [MASS/VOLUM E] IN SERUM OR PLASMA 27 mg/dL 7 - 25 08/09 H Specimen Type: SERUM Comment: BUN Verified by repeat analysis. Ordering Provider: SKYLAR ARRIOLA Report Released Date/Time: Aug 09, 2022 09:43 AM Reporting Lab: [facility] [place] [address] [address] Performing Lab: [facility] [place] [address] [address] [facility] BASIC METABOLIC PANEL (non-fast ing) GLUCOSE [MASS/VOLUM E] IN SERUM OR PLASMA 126 mg/dL 65 - 100 08/09 H Specimen Type: SERUM Comment: BUN Verified by repeat analysis. Ordering Provider: SKYLAR ARRIOLA Report Released Date/Time: Aug 09, 2022 09:43 AM Reporting Lab: [address] [address] [facility]: [facility] [address] [address] [facility] BASIC METABOLIC PANEL (non-fast ing) SODIUM [MOLES/VOLU ME] IN SERUM OR PLASMA 142 mmol/L 135 - 145 08/09 Specimen Type: SERUM Comment: BUN Verified by repeat analysis. Ordering Provider: SKYLAR ARRIOLA Report Released Date/Time: Aug 09, 2022 09:43 AM Reporting Lab: [address] [address] Performing Lab: [address] [address] [facility] BASIC METABOLIC PANEL (non-fast ing) POTASSIUM [MOLES/VOLU ME] IN SERUM OR PLASMA 4.6 mmol/L 3.5 - 5.0 08/09 Specimen Type: SERUM Comment: BUN Verified by repeat analysis. Ordering Provider: SKYLAR ARRIOLA Report Released Date/Time: Aug 09, 2022 09:43 AM Reporting Lab: [address] [address] Performing Lab: [address] [address] [facility] BASIC METABOLIC PANEL (non-fast ing) CHLORIDE [MOLES/VOLU ME] IN SERUM OR PLASMA 105 mmol/L 100 - 110 08/09 Specimen Type: SERUM Comment: BUN Verified by repeat analysis. Ordering Provider: SKYLAR ARRIOLA Report Released Date/Time: Aug 09, 2022 09:43 AM Reporting Lab: [facility] [address] Performing Lab: [facility] [address] [facility]RW[facility] BASIC METABOLIC PANEL (non-fast ing) CARBON DIOXIDE, TOTAL [MOLES/VOLU ME] IN SERUM OR PLASMA 26 meq/L 20 - 30 08/09 Specimen Type: SERUM Comment: BUN Verified by repeat analysis. Ordering Provider: SKYLAR ARRIOLA Report Released Date/Time: Aug 09, 2022 09:43 AM Reporting Lab: [facility] [address] [address] Performing Lab: [facility] [address] [facility] BASIC METABOLIC PANEL (non-fast ing) CREATININE [MASS/VOLUM E] IN SERUM OR PLASMA 1.92 mg/dL 0.50 - 1.40 08/09 H Specimen Type: SERUM Comment: BUN Verified by repeat analysis. Ordering Provider: SKYLAR ARRIOLA Report Released Date/Time: Aug 09, 2022 09:43 AM Reporting Lab: [facility] [address] [address] Performing Lab: [facility] [address] [facility] BASIC METABOLIC PANEL (non-fast ing) GLOMERULAR FILTRATION RATE/1.73 SQ M.PREDICTED [VOLUME RATE/AREA] IN SERUM, PLASMA OR BLOOD BY CREATININE- BASED FORMULA (CKD-EPI) 33 mL/min 60 08/09 L Specimen Type: SERUM Comment: BUN Verified by repeat analysis. Ordering Provider: SKYLAR ARRIOLA Report Released Date/Time: Aug 09, 2022 09:43 AM Reporting Lab: [facility] [address] Performing Lab: [facility] [place] [facility] [address] [facility] [address] [facility] [place] [facility] CBC AND DIFF (AUTO) LEUKOCYTES [#/VOLUME] IN BLOOD BY AUTOMATED COUNT 9.01 10*3/u L 4.50 - 11.00 08/09 Specimen Type: BLOOD No comment entered. Ordering Provider: SKYLAR ARRIOAL Report Released Date/Time: Aug 09, 2022 09:43 AM Reporting Lab: [facility] [place] [facility] [address] [address] Performing Lab: [facility] [place] [facility] [address] [address] [facility] [place] [facility] CBC AND DIFF (AUTO) ERYTHROCYTE S [#/VOLUME] IN BLOOD BY AUTOMATED COUNT 3.97 10*6/u L 4.23 - 5.66 08/09 L Specimen Type: BLOOD No comment entered. Ordering Provider: SKYLAR ARRIOLA Report Released Date/Time: Aug 09, 2022 09:43 AM Reporting Lab: [facility] [place] [facility] [address] [address] Performing Lab: [facility] [place] [facility] [address] [address] [facility]RL [facility]N [facility]ITALUSE TS [facility] CBC AND DIFF (AUTO) HEMOGLOBIN [MASS/VOLUM E] IN BLOOD 14.1 g/dL 12.8 - 17 08/09 Specimen Type: BLOOD No comment entered. Ordering Provider: SKYLAR ARRIOLA Report Released Date/Time: Aug 09, 2022 09:43 AM Reporting Lab: [facility] [place] [facility] [address] [address] Performing Lab: [facility] [address] [address] [facility]ITALN [facility]ITALCHUSE TS [facility] CBC AND DIFF (AUTO) HEMATOCRIT [VOLUME FRACTION] OF BLOOD BY AUTOMATED COUNT 41.5 39.2 - 50.4 08/09 Specimen Type: BLOOD No comment entered. Ordering Provider: SKYLAR ARRIOLA Report Released Date/Time: Aug 09, 2022 09:43 AM Reporting Lab: [facility] [place] [facility] [address] [facility] [address] Performing Lab: [facility] [place] [facility] [address] [address] [facility] CBC AND DIFF (AUTO) MCV [ENTITIC VOLUME] BY AUTOMATED COUNT 104.5 fL 82 - 99 08/09 H Specimen Type: BLOOD No comment entered. Ordering Provider: SKYLAR ARRIOLA Report Released Date/Time: Aug 09, 2022 09:43 AM Reporting Lab: [facility] [place] [facility] [address] [address] Performing Lab: [facility] [place] [facility] [address] [address] [facility] [place] CBC AND DIFF (AUTO) MCHC [MASS/VOLUM E] BY AUTOMATED COUNT 34.0 g/dL 30.8 - 35.1 08/09 Specimen Type: BLOOD No comment entered. Ordering Provider: SKYLAR ARRIOLA Report Released Date/Time: Aug 09, 2022 09:43 AM Reporting Lab: [facility] [place] [facility] [address] [address] Performing Lab: [facility] [place] [address] [address] [facility] [place] CBC AND DIFF (AUTO) PLATELETS [#/VOLUME] IN BLOOD BY AUTOMATED COUNT 174 10*3/u L 140 - 360 08/09 Specimen Type: BLOOD No comment entered. Ordering Provider: SKYLAR ARRIOLA Report Released Date/Time: Aug 09, 2022 09:43 AM Reporting Lab: [facility] [place] [facility] [address] [address] Performing Lab: [facility] [place] [address] [address] [facility] CBC AND DIFF (AUTO) ERYTHROCYTE DISTRIBUTIO N WIDTH [RATIO] BY AUTOMATED COUNT 13.2 12.0 - 16.0 08/09 Specimen Type: BLOOD No comment entered. Ordering Provider: SKYLAR ARRIOLA Report Released Date/Time: Aug 09, 2022 09:43 AM Reporting Lab: [facility] [place] [address] [address] Performing Lab: [facility] [place] [address] [address] [facility] [place] CBC AND DIFF (AUTO) MONOCYTES [#/VOLUME] IN BLOOD BY AUTOMATED COUNT 0.55 10*3/u L 0.30 - 1.10 08/09 Specimen Type: BLOOD No comment entered. Ordering Provider: SKYLAR ARRIOLA Report Released Date/Time: Aug 09, 2022 09:43 AM Reporting Lab: [facility] [place] [address] [address] Performing Lab: [facility] [place] [address] [address] [facility] [place] [facility] CBC AND DIFF (AUTO) MCH [ENTITIC MASS] BY AUTOMATED COUNT 35.5 pg 26.2 - 32.6 08/09 H Specimen Type: BLOOD No comment entered. Ordering Provider: SKYLAR ARRIOLA Report Released Date/Time: Aug 09, 2022 09:43 AM Reporting Lab: [facility] [place] [address] [address] Performing Lab: [facility] [place] [address] [address] [facility] [place] [facility] CBC AND DIFF (AUTO) NEUTROPHILS /100 LEUKOCYTES IN BLOOD BY AUTOMATED COUNT 73.2 43.7 - 75.8 08/09 Specimen Type: BLOOD No comment entered. Ordering Provider: SKYLAR ARRIOLA Report Released Date/Time: Aug 09, 2022 09:43 AM Reporting Lab: [facility] [place] [address] [address] Performing Lab: [facility] [address] [facility] [address] [facility] CBC AND DIFF (AUTO) LYMPHOCYTES /100 LEUKOCYTES IN BLOOD BY AUTOMATED COUNT 17.9 14.0 - 42.3 08/09 Specimen Type: BLOOD No comment entered. Ordering Provider: SKYLAR ARRIOLA Report Released Date/Time: Aug 09, 2022 09:43 AM Reporting Lab: [facility] [address] [facility] [address] Performing Lab: [facility] [address] [place] [address] [facility] CBC AND DIFF (AUTO) MONOCYTES/1 00 LEUKOCYTES IN BLOOD BY AUTOMATED COUNT 6.1 5.1 - 13.7 08/09 Specimen Type: BLOOD No comment entered. Ordering Provider: SKYLAR ARRIOLA Report Released Date/Time: Aug 09, 2022 09:43 AM Reporting Lab: [facility] [address] [place] [address] Performing Lab: [facility] [address] [place] [address] [facility] CBC AND DIFF (AUTO) EOSINOPHILS /100 LEUKOCYTES IN BLOOD BY AUTOMATED COUNT 2.0 0.4 - 6.8 08/09 Specimen Type: BLOOD No comment entered. Ordering Provider: SKYLAR ARRIOLA Report Released Date/Time: Aug 09, 2022 09:43 AM Reporting Lab: [facility] [address] [facility] [address] Performing Lab: [facility] [address] [place] [address] [facility] CBC AND DIFF (AUTO) BASOPHILS/1 00 LEUKOCYTES IN BLOOD BY AUTOMATED COUNT 0.6 0.1 - 2.0 08/09 Specimen Type: BLOOD No comment entered. Ordering Provider: SKYLAR ARRIOLA Report Released Date/Time: Aug 09, 2022 09:43 AM Reporting Lab: [facility] [place] [facility] [address] [facility] [address] Performing Lab: [facility] [place] [facility] [address] [facility] [facility] [address] [facility] CBC AND DIFF (AUTO) NEUTROPHILS [#/VOLUME] IN BLOOD BY AUTOMATED COUNT 6.60 10*3/u L 2.20 - 7.60 08/09 Specimen Type: BLOOD No comment entered. Ordering Provider: SKYLAR ARRIOLA Report Released Date/Time: Aug 09, 2022 09:43 AM Reporting Lab: [facility] [place] [address] [address] Performing Lab: [facility] [place] [facility] [address] [facility] [facility] [address] [facility] [place] [facility] CBC AND DIFF (AUTO) LYMPHOCYTES [#/VOLUME] IN BLOOD BY AUTOMATED COUNT 1.61 10*3/u L 1.00 - 3.20 08/09 Specimen Type: BLOOD No comment entered. Ordering Provider: SKYLAR ARRIOLA Report Released Date/Time: Aug 09, 2022 09:43 AM Reporting Lab: [facility] [place] [facility] [address] [facility] [address] Performing Lab: [facility] [place] [address] [address] [facility] [place] [facility] CBC AND DIFF (AUTO) EOSINOPHILS [#/VOLUME] IN BLOOD BY AUTOMATED COUNT 0.18 10*3/u L 0.03 - 0.44 08/09 Specimen Type: BLOOD No comment entered. Ordering Provider: SKYLAR ARRIOLA Report Released Date/Time: Aug 09, 2022 09:43 AM Reporting Lab: [facility] [place] [facility] [address] [facility] [facility] [address] Performing Lab: [facility] [place] [address] [address] [facility] CBC AND DIFF (AUTO) BASOPHILS [#/VOLUME] IN BLOOD BY AUTOMATED COUNT 0.05 10*3/u L 0.01 - 0.13 08/09 Specimen Type: BLOOD No comment entered. Ordering Provider: SKYLAR ARRIOLA Report Released Date/Time: Aug 09, 2022 09:43 AM Reporting Lab: [facility]RFL[facility]AL[facility]ITALTRN [place] [facility] [address] [facility] [address] Performing Lab: [facility]N [facility]ITAL[facility] [address] [facility] [address] [facility]RL [facility] CBC AND DIFF (AUTO) IMMATURE GRANULOCYTE S/100 LEUKOCYTES IN BLOOD BY AUTOMATED COUNT 0.2 0.0 - 0.7 08/09 Specimen Type: BLOOD No comment entered. Ordering Provider: SKYLAR ARRIOLA Report Released Date/Time: Aug 09, 2022 09:43 AM Reporting Lab: [facility]ITALRFLORALA MEMOR[facility]OSPITALTRN [facility]PITALUSETS [address] [address] Performing Lab: [facility] [place] [facility] [address] [facility] [address] [facility]ITALRWIREGRASS [facility]ICAL CENTERN [facility]ITALUSE [facility] CBC AND DIFF (AUTO) IMMATURE GRANULOCYTE S [#/VOLUME] IN BLOOD 0.02 10*3/u L 0.00 - 0.06 08/09 Specimen Type: BLOOD No comment entered. Ordering Provider: SKYLAR ARRIOLA Report Released Date/Time: Aug 09, 2022 09:43 AM Reporting Lab: [facility]AL[facility]PITALTRN [place] [facility] [address] [facility] [address] Performing Lab: [facility] [place] [address] [address] [facility]ITALRWIREGRASS [facility] CENTERN [facility]ITALUSE [facility] Vital Signs Combined list of inpatient and outpatient Vital Signs from Department of Defense and Veterans Affairs, ranging from 12 months to all on record, depending upon the facility. Vital Sign Value Date Comments Source SYSTOLIC BLOOD PRESSURE 131 04/17/20 24 10:06:11 [facility]RW[facility]ERN [facility]USE[facility] DIASTOLIC BLOOD PRESSURE 70 024 10:06:11 [facility] [place] [facility] PULSE OXIMETRY 97 04/17/2024 10:06:11 [...] to the last 18 months, not all [facility] inpatient encounters are included; 2) Encounters from the Department of Swish facilities going backup to 280 months. Location Location Details Encounter Type Encounter Number Reason For Visit Attending Provider ADM Date DC Date Status Disposition Source [facility] [id number] 02/07 [facility] En[facility] [id number] 02/20 [facility] En[facility] [id number] 04/23 [facility] OFFICE O/P EST LOW 20-29 MIN [id number] Diagnos is: ICD-10- CM E11.22 Type 2 diabete s mellitu s w diabeti c chronic kidney disease SKYLAR LEMUS 05/03 [facility] HEARING AID REPAIR/MOD IFYING [id number] Diagnos is: ICD-10- CM H90.3 Sensori neural hearing loss, bilater al SENIOR,JOHNSON OLE L 05/24 [facility] Outpatient Encounter [id number] 06/01 [facility] OFFICE O/P EST SF 10 MIN [id number] Diagnos is: ICD-10- CM E11.9 Type 2 diabete s mellitu s without complic ations Juan A MACHUCA AVID 06/06 [facility] Out[facility] Encounter [id number] 09/24 [facility] Out[facility]counter [id number] 09/24 [facility] Encounter [id number] 10/22 [facility] Out[facility] Encounter [id number] Diagnos is: ICD-10- CM S46.911 A Strain unsp musc/fa sc/tend at shldr/u p arm, right arm, init 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,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 [facility] DETERMINE REFRACTIVE STATE [id number] Diagnos is: ICD-10- CM E11.9 Type 2 diabete s mellitu s without complic ations SOSA,LACE Y J 12/24 [facility] CPTR OPHTH DX IMG POST SEGMT [id number] Diagnos is: ICD-10- CM 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 Diagnos is: ICD-10- CM Z13.89 Encount er for screeni ng for other disorde r DARCIE HAIR ICA A 02/06 [facility] TRIM NAIL(S) [id number] 1. Diagnos is: ICD-10- CM E11.9 Type 2 diabete s mellitu s without complic ations VICENTE MANZANO 02/06 [facility] [place] Outpatient Encounter [id number] Diagnos is: ICD-10- CM L57.0 Actinic keratos is MARY ARIAS PH J 02/07 [facility] [place] [facility] Outpatient Encounter [id number] 02/07 [facility] Outpatient Encounter [id number] 02/10 [facility] OFFICE O/P EST MOD 30 MIN [id number] Diagnos is: ICD-10- CM E11.9 Type 2 diabete s mellitu s without complic ations SHAYE MURPHYSKYLAR G 04/17 [facility] [place] [facility] [place] [facility] TRIM NAIL(S) [id number] Diagnos is: ICD-10- CM E11.9 Type 2 diabete s mellitu s without complic atVICENTE Bowen 06/09 [facility] [place] [facility] Social History Combined list of available smoking, tobacco, and other social history from Department of Defense and Veterans Affairs facilities. Social History Type Response Date Comment Source Tobacco smoking status AZIS PA-TOBACCO USE FORMER CIGARETTES 04/17/2024 [facility] [place] [facility] of [facility] OTHER [facility] 04/17/2024 [facility] [place] [facility] History of tobacco use PA-TOBACCO FORMER USER 05/03/2023 [facility] [place] [facility] History of tobacco use PA-TOBACCO FORMER USER 10/26/2021 [facility] [place] [facility] of [facility] OR MORE 08/19/2020 [facility] [place] [facility] History of tobacco use PA-TOBACCO QUIT 15 YRS OR MORE 05/21/2018 [facility] [place] [facility] History of tobacco use PA-TOBACCO NEVER USED 05/21/2018 [facility] [facility] History of tobacco use QUIT TOBACCO USE > 7 YEARS AGO 05/09/2017 quit 35 yrs ago [facility] [place] [facility] History of tobacco use LIFETIME NON-TOBACCO USER 05/09/2016 [facility] [place] [facility] History of tobacco use QUIT TOBACCO USE > 7 YEARS AGO 05/06/2015 pt states he stopped smoking 20 yrs ago [facility] [place] [facility] History of tobacco use QUIT TOBACCO USE > 7 YEARS AGO 04/05/2009 QUIT 15 YEARS AGO [facility] [place] [facility] Plan of Care List of future care activities from Department of Veterans Affairs facilities. Additional future care activities may be listed in the Assessment and Plan section. Date/Time Care Activity Care Activity Detail Facili ty 10/08/2024 AMBULATORY - MEDICINE AMBULATORY - MEDICI [facility] [place] [facility]
--- OUTSIDE RECORDS SUMMARY | 2024-07-24 09:32 | XMS_ITS | Clinical Summary ---
Author Organization [facility] Address [address] [place] [address] Phone Care Team Providers Care Drop Hammer Setter Up Name Role Phone Patrick Muniz MD Primary [...] patient's age to complete this topic [place] [address] [place] [address] Care Teams Drop Hammer Setter Up Relationship Specialty Start Date End Date Patrick Muniz MD [address] [place] [address] [place] [address] PCP - General Family Medicine 04/19/21
--- OUTSIDE RECORDS SUMMARY | 2024-07-24 09:32 | XMS_ITS ---
Author Name [facility] [place] [facility] [place] Address [address] [place] [address] Care Team Providers Care Copyright Expert Name Role Phone SKYLAR GREGORY Primary Care [...] Witt's Name Patient's Relationship to Policy Witt RACHEL EUCEDA (WNR) MEDICARE ADVANTAGE [place] PPO BLUE SAVER RX May 07, 2017 [id number] MILLIE AG SR PATIENT Selected Encounter This section includes the information on record at [place] for the Encounter. Date/Time Encounter Type Encounter Description Reason Provider Source Feb 07, 2024 02:00 PM UNLISTED SPEC DERM SVC/PX DERMATOLOGY ICD-10-CM Z13.89 Encounter for screening for other disorder RAISA HAIR [facility] Encounter Template Text not used by [place] Assessments - Encounter Diagnoses This section includes the primary and secondary diagnoses documented for the Encounter. Date/Time Primary/Secondary Diagnosis Diagnosis Name Provider Source Feb 07, 2024 02:32 PM PRIMARY Encounter for screening for other disorder [facility] [place] [facility] Plan of Treatment: Future Appointments (+ 6 months) and Future Tests (+/- 45 days) The Plan of Treatment section includes future care activities for the patient from all [place] [facility]. This section includes future appointments and future orders which are active, pending or scheduled. Future Appointments This section includes appointments that were scheduled to occur 6 months from the date of the Encounter, up to a maximum of 20 appointments. The data comes from all [place] treatment [facility]. Appointment Date/Time Appointment Type Appointme nt Facility Name Apr 17, 2024 10:00 AM [facility] Jun 09, 2024 10:00 AM AMBULATORY MEDICINE [facility] Active, Pending, and Scheduled Orders [...] The data comes from all [facility]. Test Date/Time Test Type Test Details Facility Name Feb 08, 2024 08:25 AM Consult Order DERMATOLOG Y/NHM (OUTPT) Cons Vp Of Product's Choice [facility] Social History: Smoking Status (Most current) and Tobacco Use (All prior to encounter date) This section includes the most current, and the historical, smoking and tobacco- related health factors from the [place] facility where the Encounter took place. Current Smoking Status This section includes the most current smoking, or tobacco-related health factor, from the [place] facility where the Encounter took place. Date/Time Current Smoking Status Comment Luís mustafa May 03, 2023 09:30 AM VA-TOBACCO FORMER USER [facility] Tobacco Use History This section includes a history of the smoking, or tobacco-related health factors, that were collected on or before the date of the Encounter. The data comes from the [place] facility where the Encounter took place. Date/Time Smoking Status/Tobac co Use Comment Facility May 03, 2023 09:30 AM [place]-TOBACCO QUIT 15 YRS OR [facility] Oct 26, 2021 10:00 AM VA-TOBACCO FORMER USER [facility] Oct 26, 2021 10:00 AM VA-TOBACCO QUIT 15 YRS OR MORE [facility] [place] [facility] Aug 19, 2020 08:30 AM VA-TOBACCO FORMER USER [facility] [place] [facility] Aug 19, 2020 08:30 AM VA-TOBACCO QUIT 15 YRS OR MORE [facility] [place] [facility] May 21, 2018 09:36 AM VA-TOBACCO FORMER USER [facility] [place] [facility] May 21, 2018 09:36 AM VA-TOBACCO QUIT 15 YRS OR MORE [facility] [place] [facility] May 21, 2018 08:51 AM VA-TOBACCO NEVER USED [facility] [place] [facility] May 09, 2017 09:38 AM QUIT TOBACCO USE > 7 YEARS AGO quit 35 yrs ago [facility] [place] [facility] May 09, 2016 09:45 AM LIFETIME NON-TOBACCO USER [facility] [place] [facility] May 06, 2015 08:02 AM QUIT TOBACCO USE > 7 YEARS AGO pt states he stopped smoking 20 yrs ago [facility] [place] [facility] Apr 05, 2009 02:04 PM QUIT TOBACCO USE > 7 YEARS AGO QUIT 15 YEARS AGO [facility] [place] [facility] Encounter Notes: All associated encounter notes [...] on file. /es/ RAISA HAIR TELEHEALTH CLINICAL PORTABLE TRACKMAN Signed: 02/21/2024 14:51 Receipt Acknowledged By: 02/21/2024 16:20 /es/ SKYLAR GREGORY MD PHYSICIAN --- Original Document --- 02/08/24 PATIENT NOTIFICATION TELEHEALTH RESULTS: Provided below are the results from pts telederm imaging reading. Ordering Provider is responsible to give pt the results and prescribe any treatments, recommendations or consult to dermatology for a face to face etc. REMOTE RESULTS JESUS Document from: [facility] Associated on: Feb 08, 2024@07:43:48 LOCAL TITLE: [...] of the ear, left zygomatic cheek, left rastafari IMPRESSION BASED ON IMAGES AND INFORMATION REVIEWED: [...] REMOTE RESULTS /es/ RAISA HAIR TELEHEALTH CLINICAL PORTABLE TRACKMAN Signed: 02/08/2024 08:15 Receipt Acknowledged By: 02/08/2024 08:21 /es/ SKYLAR GREGORY MD PHYSICIAN RAISA HAIR [facility] [place] [facility] Feb 08, 2024 08:13 AM TELEHEALTH NOTE: [...] face etc. REMOTE RESULTS JESUS Document from: [facility] Associated on: Feb 08, 2024@07:43:48 LOCAL TITLE: [...] of the ear, left zygomatic cheek, left rastafari IMPRESSION BASED ON IMAGES AND INFORMATION REVIEWED: [...] REMOTE RESULTS /kaylynn/ RAISA HAIR TELEHEALTH CLINICAL PORTABLE TRACKMAN Signed: 02/08/2024 08:15 Receipt Acknowledged By: 02/08/2024 08:21 /kaylynn/ SKYLAR GREGORY MD PHYSICIAN 02/21/2024 ADDENDUM STATUS: COMPLETED Pt called asking to go over his results please call # on file. /kaylynn/ RAISA HIAR TELEHEALTH CLINICAL PORTABLE TRACKMAN Signed: 02/21/2024 14:51 Receipt Acknowledged By: * AWAITING SIGNATURE * SKYLAR GREGORY JESSICA A [facility] [place] [facility] Feb 07, 2024 02:00 PM TELEHEALTH CONSULT [...] notes possible actinic keratosis type lesions on rastafari area of forehead. PROBLEM A LOCATION(S): Head/Neck bilateral temples DURATION: 3-4 months SYMPTOMS: Itch, Redness CHANGES: None TREATMENT: Yes Details: over the counter cream is helping they are less red now pt doesn't know the name of the cream BIOPSY: No Head Still Operator's comments: Imaged per providers direction and facility protocol /kaylynn/ RAISA HAIR TELEHEALTH CLINICAL PORTABLE TRACKMAN Signed: 02/07/2024 14:32 [facility] HA[facility]
--- OUTSIDE RECORDS SUMMARY | 2024-07-24 09:32 | XMS_ITS ---
Author Name [facility] [place] Organization [facility] [place] Address [address] [place] [address] Care Team Providers Care Auto Adjudication Specialist Name Role Phone SKYLAR GREGORY Primary [...] PPO BLUE SAVER RX May 07, 2017 [id number] MILLIE AG SR PATIENT Selected Encounter This section includes the information on record at [place] for the Encounter. Date/Time Encounter Type Encounter Description Reason Provider Source Apr 17, 2024 10:00 AM OFFICE O/P EST MOD 30 MIN PRIMARY CARE/MEDICINE ICD-10-CM E11.9 Type 2 diabetes mellitus without complications SKYLAR GREGORY [facility] Encounter Template Text not used by [place] Assessments - Encounter Diagnoses This section includes the primary and secondary diagnoses documented for the Encounter. Date/Time Primary/Secondary Diagnosis Diagnosis Name Provider Source Apr 17, 2024 12:34 PM PRIMARY Type 2 diabetes mellitus without complications SK[facility]REGORY [facility] Apr 17, 2024 12:34 PM SECONDARY Chronic kidney disease, stage 3a [facility] Apr 17, 2024 12:34 PM SECONDARY Essential (primary) hypertension SKYLAR [facility]REGORY [facility] Apr 17, 2024 12:34 PM SECONDARY Hypothyroidism, unspecified [facility]AR GREGORY [facility] Apr 17, 2024 12:34 PM SECONDARY Type 2 diabetes mellitus w diabetic chronic kidney disease SKYLAR GREGORY [facility] Plan of Treatment: Future Appointments (+ 6 months) and Future Tests (+/- 45 days) The Plan of Treatment section includes future care activities for the patient from all [place] [facility]. This section includes future appointments and future orders which are active, pending or scheduled. Future Appointments This section includes appointments that were scheduled to occur 6 months from the date of the Encounter, up to a maximum of 20 appointments. The data comes from all [place] treatment facilities. Appointment Date/Time Appointment Type Appointme nt Facility Name Jun 09, 2024 10:00 AM AMBULATORY - MEDICINE [facility] Oct 08, 2024 10:00 AM AMBULATORY MEDICINE [facility] Vital Signs: All taken on the encounter date This section contains inpatient and outpatient Vital Signs collected on the date of the Encounter. Date/Time Temperature Pulse Blood Pressure Respiratory Rate SP02 Pain Height Weight Body Mass Index Source Apr 17, 2024 10:06 AM 63 131/70 20 97 0 176 28 [facility] Social History: Smoking Status (Most current) and Tobacco Use (All prior to encounter date) This section includes the most current, and the historical, smoking and tobacco- related health factors from the [place] facility where the Encounter took place. Current Smoking Status This section includes the most current smoking, or tobacco-related health factor, from the [place] facility where the Encounter took place. Date/Time Current Smoking Status Comment Luís signh Apr 17, 2024 10:00 AM AL-TOBACCO USE FOR JACINTO CIGARETTES [facility] Tobacco Use History This section includes a history of the smoking, or tobacco-related health factors, that were collected on or before the date of the Encounter. The data comes from the [place] facility where the Encounter took place. Date/Time Smoking Status/Tobac co Use Comment Facility Apr 17, 2024 10:00 AM VA-TOBACCO USE FORMER CIGARETTES [facility] [place] [facility] May 03, 2023 09:30 AM VA-TOBACCO FORMER USER [facility] [place] [facility] May 03, 2023 09:30 AM VA-TOBACCO QUIT 15 YRS OR MORE [facility] [place] [facility] Oct 26, 2021 10:00 AM VA-TOBACCO FORMER USER [facility] [place] [facility] Oct 26, 2021 10:00 AM VA-TOBACCO QUIT 15 YRS OR MORE [facility] [place] [facility] Aug 19, 2020 08:30 AM VA-TOBACCO FORMER USER [facility] [place] [facility] Aug 19, 2020 08:30 AM VA-TOBACCO QUIT 15 YRS OR MORE [facility] [place] [facility] May 21, 2018 09:36 AM VA-TOBACCO FORMER USER [facility] [place] [facility] May 21, 2018 09:36 AM VA-TOBACCO QUIT 15 YRS OR MORE [facility] [place] [facility] May 21, 2018 08:51 AM VA-TOBACCO NEVER USED [facility] [place] [facility] May 09, 2017 09:38 AM QUIT TOBACCO USE > 7 YEARS AGO quit 35 yrs ago [facility] [place] [facility] May 09, 2016 09:45 AM LIFETIME NON-TOBACCO USER [facility] [place] [facility] May 06, 2015 08:02 AM QUIT TOBACCO USE > 7 YEARS AGO pt states he stopped smoking 20 yrs ago [facility] [place] [facility] Apr 05, 2009 02:04 PM QUIT TOBACCO USE > 7 YEARS AGO QUIT 15 YEARS AGO [facility] [place] [facility] Encounter Notes: All associated encounter notes This section contains the clinical notes associated to the Encounter. Date/Time Encounter Note(s) Provider Source Apr 17, 2024 10:13 AM PREVENTIVE MEDICINE NURSING NOTE: LOCAL TITLE: CLINICAL REMINDERS/NURSING STANDARD TITLE: PREVENTIVE MEDICINE NURSING NOTE DATE OF NOTE: APR 17, 2024@10:13 ENTRY DATE: APR 17, 2024@10:13:32 AUTHOR: TSERING REARDON EXP COSIGNER: URGENCY: STATUS: COMPLETED Depression Screening: Perform [...] due to responses to other questions. 5. [place] numb or detached from people, activities, or your surroundings? Response not required due to responses to other questions. 6. [place] guilty or unable to stop blaming yourself [...] Signed: 04/17/2024 10:14 TSERING REARDON [facility] [facility] Apr 17, 2024 08:01 AM PHYSICIAN NOTE: LOCAL TITLE: MD NOTE STANDARD TITLE: PHYSICIAN NOTE DATE OF NOTE: APR 17, 2024@08:01 ENTRY DATE: APR 17, 2024@08:01:27 AUTHOR: JEFF GREGORY EXP COSIGNER: URGENCY: STATUS: COMPLETED HISTORY OF PRESENT ILLNESS: MILLIE AG, is a 89 yo WHITE MALE who presents at the [place] [facility] CC. multiple problems HPI. this vet presents to PCP clinic to review his medical concerns: 1. hx of diabetes/good glycemic control on low dose glipizide, vet prefers to remain under care of community PCP/Dr Sheldon Muniz in [place]/ no polyuria, no fevers. 2. CKD 3A- [...] of hand 3. Low Back Pain (SCT 059230343) 4. Diabetes Mellitus Type 2 (SCT 02223104) 5. Microalbuminuria due to type 2 diabetes mellitus 6. Chronic kidney disease due to type 2 diabetes mellitus 7. Abnormal vision 8. Benign Prostatic Hypertrophy Without Outflow Obstruction (SCT 731972076) 9. Essential hypertension 10. Hypothyroidism (SNOMED CT 61305416) 11. Transient Ischemic Attack 12. HLD - Hyperlipidemia 13. Hearing loss (SNOMED CT 48183954) HISTORY: PERIOD OF SERVICE - [facility] FROM Jun TO Apr COMBAT SERVICE INDICATED: [...] of active outpatient prescriptions dispensed from this [place] (local) and dispensed from another [place] or [facility] facility (remote) as well as inpatient orders [...] MD PHYSICIAN Signed: 04/17/2024 12:34 ANI GREGORY [place] [facility]
--- OUTSIDE RECORDS SUMMARY | 2024-07-24 09:32 | XMS_ITS | Encounter Summary ---
Author Name [facility] [place] Organization [facility] Address [address] [place] [id number] Care Team Providers Care Nuclear Pharmacist Name Role Phone SKYLAR GREGORY Primary Care [...] Witt's Name Patient's Relationship to Policy Witt KAROL EUCEDA (WNR) MEDICARE ADVANTAGE [place] PPO BLUE SAVER RX May 07, 2017 [id number] [phone] MILLIE AG SR PATIENT Selected Encounter This section includes the information on record at [place] for the Encounter. Date/Time Encounter Type Encounter Description Reason Provider Source Feb 08, 2024 07:40 AM Outpatient Encounter DERMATOLOGY ICD-10-CM L57.0 Actinic keratosis RONAL KENDRICK [facility] Encounter Template Text not used by [place] Assessments - Encounter Diagnoses This section includes the primary and secondary diagnoses documented for the Encounter. Date/Time Primary/Secondary Diagnosis Diagnosis Name Provider Source Feb 08, 2024 07:43 AM PRIMARY Actinic keratosis RONAL KENDRICK [facility] Plan of Treatment: Future Appointments (+ 6 months) and Future Tests (+/- 45 days) The Plan of Treatment section includes future care activities for the patient from all [place] treatmentfacilities. This section includes future appointments and future orders which are active, pending or scheduled. Future Appointments This section includes appointments that were scheduled to occur 6 months from the date of the Encounter, up to a maximum of 20 appointments. The data comes from all [facility]. Appointment Date/Time Appointment Type Appointme nt Facility Name Apr 17, 2024 10:00 AM AMBULATORY - MEDICINE [facility] Jun 09, 2024 10:00 AM AMBULATORY - MEDICINE [facility] Active, Pending, and Scheduled Orders This section includes a listing of several types of active, pending, and scheduled orders, including clinic medications orders, diagnostic test orders, procedure orders and consult orders; where the start date of the order is 45 days before the date of the Encounter or 45 days after the date of theEncounter. The data comes from all [facility]. Test Date/Time Test Type Test Details Facility Name Feb 08, 2024 08:25 AM Consult Order DERMATOLOG Y/NHM (OUTPT) Cons Equipment Hire Manager's Choice [facility] Encounter Notes: All associated encounter [...] of the ear, left zygomatic cheek, left mosque IMPRESSION BASED ON IMAGES AND INFORMATION REVIEWED: [...] PA-C Dermatology Signed: 02/08/2024 07:43 RONAL KENDRICK [facility]
--- OUTSIDE RECORDS SUMMARY | 2024-07-24 09:32 | XMS_ITS ---
Author Name [facility] Organization [facility] Address [address] [place] [address] Care Team Providers Care Regulatory Affairs Assistant Name Role Phone SKYLAR GREGORY Primary Care [...] PPO BLUE SAVER RX May 07, 2017 [id number] MILLIE AG SR PATIENT Selected Encounter This section includes the information on record at ID for the Encounter. Date/Time Encounter Type Encounter Description Reason Provider Source Dec 25, 2023 08:30 AM DETERMINE REFRACTIVE STATE OPTOMETRY ICD-10-CM E11.9 Type 2 diabetes mellitus without complications YOLI SOSA [facility] Encounter Template Text not used by ID Assessments - Encounter Diagnoses This section includes the primary and secondary diagnoses documented for the Encounter. Date/Time Primary/Secondary Diagnosis Diagnosis Name Provider Source Dec 25, 2023 09:34 AM PRIMARY Type 2 diabetes mellitus without complications YOLI SOSA [facility] [place] [facility] Dec 25, 2023 09:34 AM SECONDARY Dry eye syndrome of bilateral lacrimal glands YOLI SOSA [facility] [place] [facility] Dec 25, 2023 09:34 AM SECONDARY Presbyopia [facility]OSA,[facility] [place] [facility] Dec 25, 2023 09:34 AM SECONDARY Presence of intraocular lens SOSA,[facility]OLI Bailey [facility] [place] [facility] Dec 25, 2023 09:34 AM SECONDARY Puckering of macula, left eye SOSA,YOLI Bailey [facility] Dec 25, 2023 09:34 AM SECONDARY Unspecified retinal break, left eye SOSA,YOLI Bailey [facility] Plan of Treatment: Future Appointments (+ 6 months) and Future Tests (+/- 45 days) The Plan of Treatment section includes future care activities for the patient from [facility] This section includes future appointments [...] 22, 2024 09:30 AM AM[place]ULATORY [place] [facility] [place] [facility] Feb 07, 2024 02:00 PM [facility]ULATORY [facility] NONE [facility] Feb 07, 2024 03:00 PM [facility] [place] [facility] [facility] [place] [facility] Apr 17, 2024 10:00 AM [facility]ULATORY [facility] [place] [facility] Jun 09, 2024 10:00 AM [facility]ULAT[facility] [facility] [place] [facility] Active, Pending, and Scheduled Orders This section includes a listing of several types of active, pending, and scheduled orders, including clinic medications orders, diagnostic test orders, procedure orders and consult orders; where the start date of the order is 45 days before the date of the Encounter or 45 days after the date of theEncounter. The data comes from all ID treatment facilities. Test Date/Time Test Type Test Details Facility Name Feb 08, 2024 08:25 AM Consult Order DERMATOLOG Y/NHM (OUTPT) Cons Sewage Plant Attendant's Choice [facility] Social History: Smoking Status (Most current) and [...] place. Date/Time Current Smoking Status Comment Luís it May 03, 2023 09:30 AM VA-TOBACCO FORMER USER ID [facility] [place] [facility] Tobacco [...] 19, 2020 08:30 AM VA-TOBACCO FORMER USER ID [facility] [place] [facility] Aug [...] VA-TOBACCO NEVER USED [facility] [place] [facility] May 09, 2017 09:38 AM QUIT TOBACCO USE > 7 YEARS AGO quit 35 yrs ago [facility] [place] [facility] May 09, 2016 09:45 AM LIFETIME NON-TOBACCO USER [facility] [place] [facility] May 06, 2015 08:02 AM QUIT TOBACCO USE > 7 YEARS AGO pt states he stopped smoking 20 yrs ago [facility] [place] [facility] Apr 05, 2009 02:04 PM QUIT TOBACCO USE > 7 YEARS AGO QUIT 15 YEARS AGO [facility] [place] [facility] Encounter Notes: All associated encounter [...] of hand 2. Low Back Pain (SCT 603833312) 3. Diabetes Mellitus Type 2 (SCT 93428686) 4. Microalbuminuria due to type 2 diabetes mellitus 5. Chronic kidney disease due to type 2 diabetes mellitus 6. Abnormal vision 7. Benign Prostatic Hypertrophy Without Outflow Obstruction (SCT 811519035) 8. Essential hypertension 9. Hypothyroidism (SNOMED CT 13518880) 10. Transient Ischemic Attack 11. HLD - Hyperlipidemia 12. Hearing loss (SNOMED CT 65202794) Active Outpatient Medications (including Supplies): Active Non-VA [...] denies flashes but notes a little blue ekuk in center of vision that is very [...] ago Current Rx with last BCVA: OD: +2.25-2.87n427 20/20+2 OS: +3.00-1.10j339 20/25-2 Add: +2.75 DVA ( )sc ( x )cc phoropter OD: 20/20 OS: 20/50+1 PH: 20/50+2 Pupils: PERRL (-)APD EOMs: SAFE OU, (-)Pain/Diplopia CVF (facial, peripheral): FTFC OU Subjective Refraction: OD: +2.25-2.24s459` 20/20 OS: +3.00-1.23n259 20/50+1 Add: +2.75 All the above performed [...] this VA (local) and dispensed from another ID or [facility] facility (remote) as well as inpatient [...] Remote Allergy/ADR Data available for this patient [facility] [place] [facility] No Known Allergies Med. Reconciliation (Tool #1) INCLUDED IN THIS LIST: Alphabetical list of active outpatient prescriptions dispensed from this VA (local) and dispensed from another ID or [facility] facility (remote) as well as inpatient orders (local pending and active), local clinic medications, locally documented non-VA medications, and local prescriptions that have or been discontinued in the past 90 days. Non-VA Meds Last Documented On: Aug 19, 2020 NOTE The display of VA prescriptions dispensed from another ID or [facility] facility (remote) is limited to active outpatient prescription entries matched to National Drug File at the originating site and may not include some items such as investigational drugs, compounds, etc. NOT INCLUDED IN THIS LIST: Medications self-entered by the patient into personal health records (i.e. [employer]) are NOT included in this list. Non-VA medications documented outside this ID, remote inpatient orders (regardless of status) and [...] TERMS AND POSSIBLE PATIENT ACTIONS INPT = ID inpatient order IV = ID intravenous medication OUTPT = ID outpatient prescription PHARMACY POSSIBLE PATIENT TERMS EXPLANATION ACTIONS -------- - ACTIVE A prescription that can be If you have refills, filled at the local ID pharmacy. you may request a refill of this prescription from your ID pharmacy. CLINIC A medication you received during If you have questions a visit to a ID clinic or about this medication emergency department. contact your ID healthcare team. DISCONTINUED A prescription your provider has Contact your VA stopped. It is no longer healthcare team if you available to be sent to you or need more of this picked up at the ID pharmacy medication. window. A prescription which is [...] the VA. Or, it may be an efcm-jvm-edoctnr (OTC), herbal, dietary supplements or sample medication. [...] Signed: 12/25/2023 11:09 /kaylynn/ YOLI SOSA OD IRRIGATION SUPERVISOR Cosigned: 12/25/2023 11:15 12/25/2023 ADDENDUM STATUS: COMPLETED The optometry internal audit senior manager participated in this exam, I saw this [...] in student note. /kaylynn/ YOLI SOSA OD IRRIGATION SUPERVISOR Signed: 12/25/2023 11:15 DARCY SUH CNT[facility]ISSE [facility] [place] [facility]
--- OUTSIDE RECORDS SUMMARY | 2024-07-24 09:32 | XMS_ITS ---
Author Name [facility] Organization [facility] Address [address] [place] [address] Care Team Providers Care Carding Machine Feeder Name Role Phone SKYLAR GREGORY Primary Care [...] PPO BLUE SAVER RX May 07, 2017 [id number] [phone] MILLIE AG SR PATIENT Selected Encounter This section includes the information on record at SD for the Encounter. Date/Time Encounter Type Encounter Description Reason Provider Source Dec 25, 2023 09:00 AM CPTR OPHTH DX IMG POST SEGMT OPTOMETRY ICD-10-CM 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, left eye [facility]A,[facility]I [facility] Encounter Template Text not used by [place] Assessments - Encounter Diagnoses This section includes the primary and secondary diagnoses documented for the Encounter. Date/Time Primary/Secondary Diagnosis Diagnosis Name Provider Source Dec 25, 2023 09:35 AM PRIMARY Puckering of macula, left eye YOLI SOSA [place] [facility] [place] [facility] Plan of Treatment: Future Appointments (+ 6 months) and Future Tests (+/- 45 days) The Plan of Treatment section includes future care activities for the patient [facility] This section includes future appointments and future orders which are active, pending or scheduled. Future Appointments This section includes appointments that were scheduled to occur 6 months from the date of the Encounter, up to a maximum of 20 appointments. The data comes from all [facility]. Appointment Date/Time Appointment Type Appointme nt Facility Name Jan 22, 2024 09:30 AM [facility] Feb 07, 2024 02:00 PM [facility]ORY [facility] NONE [facility] Feb 07, 2024 03:00 PM [facility] Apr 17, 2024 10:00 AM [facility] Jun 09, 2024 10:00 AM AMBULATORY - MEDICINE [facility] Active, Pending, and Scheduled Orders This section includes a listing of several types of active, pending, and scheduled orders, including clinic medications orders, diagnostic test orders, procedure orders and consult orders; where the start date of the order is 45 days before the date of the Encounter or 45 days after the date of theEncounter. The data comes from all [facility]. Test Date/Time Test Type Test Details Facility Name Feb 08, 2024 08:25 AM Consult Order DERMATOLOG Y/NHM (OUTPT) Cons Transistor Tester's Choice [facility] Social History: Smoking Status (Most current) [...] Facil ity May 03, 2023 09:30 AM VA-TOBACCO FORMER USER [facility] Tobacco Use History This section includes a history of the smoking, or tobacco-related health factors, that were collected on or before the date of the Encounter. The data comes from the [place] facility where the Encounter took place. Date/Time Smoking Status/Tobac co Use Comment Facility May 03, 2023 09:30 AM VA-TOBACCO QUIT 15 YRS OR MORE [facility] [place] [facility] Oct 26, 2021 10:00 AM VA-TOBACCO FORMER USER [facility] [place] [facility] Oct 26, 2021 10:00 AM VA-TOBACCO QUIT 15 YRS OR MORE [facility] [place] [facility] Aug 19, 2020 08:30 AM VA-TOBACCO FORMER USER [facility] [place] [facility] Aug 19, 2020 08:30 AM VA-TOBACCO QUIT 15 YRS OR MORE [facility] [place] [facility] May 21, 2018 09:36 AM VA-TOBACCO FORMER USER [facility] [place] [facility] May 21, 2018 09:36 AM VA-TOBACCO QUIT 15 YRS OR MORE [place] [facility] [place] [facility] May 21, 2018 08:51 AM VA-TOBACCO NEVER USED [place] [facility] [place] [facility] May 09, 2017 09:38 AM QUIT TOBACCO USE > 7 YEARS AGO quit 35 yrs ago [facility] [place] [facility] May 09, 2016 09:45 AM LIFETIME NON-TOBACCO USER [facility] [place] [facility] May 06, 2015 08:02 AM QUIT TOBACCO USE > 7 YEARS AGO pt states he stopped smoking 20 yrs ago [facility] [place] [facility] Apr 05, 2009 02:04 PM QUIT TOBACCO USE > 7 YEARS AGO QUIT 15 YEARS AGO [place] [facility] [place] [facility] Encounter Notes: All associated encounter notes This section contains the clinical notes associated to the Encounter. Date/Time Encounter Note(s) Provider Source Dec 25, 2023 09:06 AM OPTOMETRY CONSULT: LOCAL TITLE: CONSULT REPORT/OPTOMETRY OCT STANDARD TITLE: OPTOMETRY CONSULT DATE OF NOTE: DEC 25, 2023@09:06 ENTRY DATE: DEC 25, 2023@09:06:27 AUTHOR: DARCY SUH COSIGNER: YOLI SOSA URGENCY: STATUS: COMPLETED CONSULT [...] contour. Pt's vision OS has decreased since IWLBER 1 year ago, BCVA now 20/50+1 OS. [...] Signed: 12/25/2023 10:53 /kaylynn/ YOLI SOSA OD DIRECTOR HEART Cosigned: 12/25/2023 11:15 12/25/2023 ADDENDUM STATUS: COMPLETED The optometry senior internal auditor participated in this exam. I saw this in conjunction with the optometry student. The visual images were captured by the optometry health lamination technician. Results of testing assessed by the student and reviewed by myself. 's history, complaints and student's findings and plan reviewed. I reviewed and agree with the stated findings, assessment and plan. I have added/edited the documentation to reflect my exam findings and changes to the assessment and plan. /kaylynn/ YOLI SOSA OD DIRECTOR HEART Signed: 12/25/2023 11:15 DARCY SUH [place] [facility]
--- NOTE | 2024-07-24 09:38 | MHC.PC.OV ---
Vital Signs 07/24/24 09:41 Height 5 ft 6 in Weight 175 lb BMI 28.2 BP 130/60 Blood Pressure Location Rt brachial Position Sitting Respiration 14 Pulse 58 Pulse Source Pulse Oximeter Temp 97.9 F Temp Source Oral Pulse Oximetry (%) 98 Oxygen Delivery Method Room Air Intake Visit Reasons: f/u diabetes, HTN, chronic conditions Intake Note: follow up dm and htn,chronic condition Flap Presser Required: No Allergies hydralazine [Hydralazine] Allergy (Unknown, Verified 07/24/24 09:39) SEVERE HEADACHE Tobacco use date assessed: 07/17/23 Dental Screening Dental Screen Date: 07/17/23 HPI f/u diabetes, HTN, chronic conditions HPI Details 89 y/o male presents to f/u diabetes, hypertension, chronic conditions. Has complaints of vertigo, R ear discomfort today. Blood pressure today 130/60, 58p. He is on lisinopril 5mg, amlodipine 2.5mg daily. A1c 6.9%. He is on glipizide 2.5mg daily. [facility] Medical History Chest pain RUQ pain Wheezing Elevated diaphragm Pulmonary nodules Aortic stenosis Edema CAD (coronary artery disease) Diabetes type 2, controlled Elevated prostate specific antigen between 10 and 19 ng/ml Atrial fibrillation [place]'s disease Elevated morning serum cortisol level Surgical History History of cardiac cath Hx of tonsillectomy Hx of colonoscopy Family History Father Colon cancer Mother HTN (hypertension) Type 2 diabetes mellitus Brother No problems noted. Sister No problems noted. Son No problems noted. Son No problems noted. Son No problems noted. Daughter No problems noted. Daughter No problems noted. Social History Housing: Apartment Alcohol intake: former Year quit: 1979 Patient Tobacco Use Status: Former Tobacco user Years Smoked: 45+ e-Cigarette/Vaping Use: Never Used Second Hand Smoke Exposure: No service: Yes ([employer] [id number]) Current occupational status: retired Current occupational exposures/hazards: No Cognitive needs: No Hearing needs: Yes Vision needs: No Questionnaire PHQ-9 Over the last 2 weeks, how often have you been bothered by any of the following problems? 3. Trouble falling or staying asleep, or sleeping too much: several days 5. Poor appetite or overeating: not at all 6. Feeling bad about yourself - or that you are a failure or have let yourself or your family down: not at all 7. Trouble concentrating on things, such as reading the newspaper or watching television: not at all 8. Moving or speaking so slowly that other people could have noticed. Or the opposite - being so fidgety or restless that you have been moving around a lot more than usual: not at all 9. Thoughts that you would be better off or of hurting yourself in some way: not at all Source: Developed by Drs. Boston Abdi, Nagi Kingston and colleagues, with an educational noni from [employer]. Thrive Questionnaire Date Thrive assessed: 07/24/24 I am a: Patient What is your living situation today?: I have a steady place to live Within the past 12 months, did the food you bought not last and you didn't have the money to get more?: I choose not to answer this question Within the past 12 months, did you worry whether your food would run out before you got money to buy more?: I choose not to answer this question Do you have trouble paying for medicines?: I choose not to answer this question Do you have trouble getting transportation to medical appointments?: I choose not to answer this question Do you have trouble paying your heating and electricity bill?: No Do you have trouble taking care of your child, family member or friend?: No Do you have trouble with day-to-day activities such as bathing, preparing meals, shopping, managing finances, etc.?: No Are you currently unemployed and looking for a job?: No Are you interested in more education?: No Please select the resources that you would like help with: None THRIVE Score: 0 KOBE-7 AMB Questionnaire KOBE-7 Date KOBE - 7 assessed: 07/17/23 Source: Developed by Drs. Boston Abdi, Ermelinda Hutton, Nagi Berkowitz and colleagues, with an educational noni from [employer]. Review of Systems Const Denies chills, Denies fatigue, Denies fever(s), Denies headache(s) and Denies weakness ENT Denies dizziness and Denies headache(s) Card Denies dyspnea Resp Denies cough, Denies dyspnea, Denies wheezing and Denies other (shortness of breath) Musc Denies numbness and Denies tingling Neuro Denies dizziness, Denies headache(s), Denies numbness, Denies tingling and Denies weakness Psych Denies anxiety and Denies depression Endo Denies fatigue Aller/Immun Denies wheezing Physical exam (Primary Care) Vital Signs: Last Vital Signs Temp 97.9 F 07/24/24 09:41 Pulse 58 07/24/24 09:41 Resp 14 07/24/24 09:41 BP 130/60 07/24/24 09:41 Pulse Ox 98 07/24/24 09:41 Oxygen Delivery Method Room Air 07/24/24 09:41 BMI result Body Mass Index 28.2 Tobacco/Smoking Status: Tobacco use Status Tobacco use date assessed 07/17/23 07/24/24 09:44 Patient Tobacco Use Status Former Tobacco user 07/24/24 09:44 e-Cigarette/Vaping Use Never Used 07/24/24 09:44 Thrive Assessment: Date of Thrive Assessment Date Thrive assessed 07/24/24 07/24/24 09:44 Const General: well developed; No acute distress Nutritional Appearance: well nourished Orientation/consciousness: patient oriented x3 HENMT Head: Yes normocephalic and Yes atraumatic Eyes General: appearance normal, both eyes and all related structures Pupils: Equal, round and reactive pupils present EOM: EOMs intact bilaterally Resp Effort & Inspection: normal respiratory effort Neuro General: patient oriented x3 and gait normal Cranial nerves: Yes Equal, round and reactive pupils present Psych Affect: normal affect Coding Level of Care Code Est Pt Level 4 (03011) Diagnoses Essential hypertension I10 Ear pain, right H92.01 Diabetes type 2, controlled E11.9 Diabetes mellitus complication detail: with chronic kidney disease Diabetes mellitus complication status: with kidney complications Diabetes mellitus long term care social worker insulin use: without long term care social worker use Vertigo R42 Sialadenitis K11.20 Assessment & Plan Assessment & Plan (1) Essential hypertension: Code(s): I10 - Essential (primary) hypertension Category: Medical Plan: Blood?pressure?is?controlled.??Goal?is?less?than?130/80 Blood?pressures?at?home?are?even?better?in?the?120s/70s?consistently. Continue?current?medication (2) Ear pain, right: Code(s): H92.01 - Otalgia, right ear Plan: Patient?notes?right?ear?pressure?and?some?drainage. Right?TM?looks?mildly?slack.??I?did?not?definitively?see?a?perforation?though?I?suspect?this He?also?notes?some?vertigo Referred?to?ENT (3) Diabetes type 2, controlled: Code(s): E11.9 - Type 2 diabetes mellitus without complications Category: Medical Qualifiers: Diabetes mellitus complication detail: with chronic kidney disease Diabetes mellitus complication status: with kidney complications Diabetes mellitus long term care social worker insulin use: without long term care social worker use Plan: A1c?6.9%.??Goal?is?less?than?7.0% Continue?current?medication (4) Vertigo: Code(s): R42 - Dizziness and giddiness Category: Medical Plan: As above (5) Sialadenitis: Code(s): K11.20 - Sialoadenitis, unspecified Category: Medical Plan: Mild Use?warm?compresses Lemon?drops Gentle?massage Hydrate?well No?indication?for?antibiotic?at?this?time He?will?let?me?know?if?this?worsens?or?is?not?improving Orders: Referrals Ear/Nose/Throat Referral H92.01 - Otalgia, right ear
[2024-07-24 09:41] VITALS: BP 130/60; PULSE 58; RESP 14; TEMP 36.6; O2SAT 98; BMI 28.2
== END 2024-07-24 10:27 | disposition home or self-care (01) ==
LOC: HO.HMCFM 09:00
PROVIDERS: PCP Family Medicine; Visit Provider Family Medicine
DX: I10 Essential (primary) hypertension (principal); H92.01 Otalgia, right ear; E11.9 Type 2 diabetes mellitus without complications; R42 Dizziness and giddiness; K11.20 Sialoadenitis, unspecified

== ENCOUNTER → 2024-07-24 08:59 | Outpatient (BNVA) | payer BC, SELFPAY | PROVIDERS: PCP Family Medicine; Visit Provider Family Medicine | DX: E11.9 Type 2 diabetes mellitus without complications (principal); I10 Essential (primary) hypertension; H92.01 Otalgia, right ear; R42 Dizziness and giddiness; K11.20 Sialoadenitis, unspecified | CPT/HCPCS: 83036 ==

== ENCOUNTER 2024-07-29 07:59 | Outpatient (AMB) | payer BC, SELFPAY ==
--- OUTSIDE RECORDS SUMMARY | 2024-07-29 08:09 | XMS_ITS | Clinical Summary ---
Author Organization [facility] Address [address] [facility] [address] [place] [address] Phone Care Team Providers Care Bill Cutter Name Role Phone Patrick Muniz MD Primary [...] patient's age to complete this topic Insurance [address] [place] [address] Care Teams Bill Cutter Relationship Specialty Start Date End Date Patrick Muniz MD [address] [place] [address] [place] [address] PCP - General Family Medicine 04/19/21
--- OUTSIDE RECORDS SUMMARY | 2024-07-29 08:09 | XMS_ITS | Continuity of Care Document ---
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) Active 05/07/19 19 Condition May 21, 2018 Entered By: MC DAN Comment: treated with finasteride [facility] Essential hypertension Active 05/07/19 09 Condition [facility] Hearing loss (SNOMED CT 64538169) Active 05/07/19 09 Condition [facility] HLD - Hyperlipidemia Active 05/07/19 09 Condition [facility] Hypothyroidism (SNOMED CT 75793293) Active 05/07/19 09 Condition [facility] Diabetes Mellitus Type 2 (SCT 97687767) Active Condition Apr 17, 2024 Entered By: SKYLAR GREGORY Comment: vet under care of community PCP/ Dr Sheldon Muniz- good glycemic control [facility] History of actinic keratosis Active Condition Feb 08, 2024 Entered By: SKYLAR GREGORY Comment: see tele derm-lesions on right side of face/ vet needs cryotx per derm [facility] Low Back Pain (SCT 944486262) Active Condition Oct 26, 2021 Entered By: [...] Diagnosis: ICD-10-CM L57.0 Actinic keratosis Active Diagnosis [facility] Diagnosis: ICD-10-CM Z13.89 Encounter for screening [...] DAILY ORAL ACTIVE D'ALESSAN KERI MIRANDA 2023 [facility] BUMETANIDE 1MG TAB TAKE ONE TABLET BY MOUTH ONCE DAILY ORAL ACTIVE D'ALESSAN KERI MIRANDA 2023 [facility] CARBOXYMETH YLCELLULOSE NA 0.5% SOLN,OPH INSTILL 1 DROP INTO EACH EYE FOUR TIMES A DAY FOR DRY EYE OPHTHA LMIC ACTIVE 12/25/2024 [id number] SOSA,LAC EY J 2023 45 [facility] GLIPIZIDE 5MG TAB TAKE ONE-HALF TABLET BY MOUTH ORAL ACTIVE D'ALESSAN KERI MIRANDA 2023 [facility] LEVOTHYROXI NE NA 125MCG TAB (SYNTHROID) TAKE ONE TABLET BY MOUTH QD ORAL ACTIVE D'ALESSAN KERI MIRANDA 2023 [facility] LISINOPRIL 10MG TAB TAKE ONE TABLET BY MOUTH ONCE DAILY ORAL ACTIVE D'ALESSAN KERI MIRANDA 2023 [facility] PRAVASTATIN NA 40MG TAB TAKE ONE TABLET BY MOUTH AT BEDTIME ORAL ACTIVE PRASHANT DAN 2009 [facility] Immunizations Combined list of available immunizations from the Department of Defense and Veterans Affairs facilities. Immunization Series Date Given Administered By Site Reaction Lot Number CVX Code Drug Steel Analyst Status Comments Source INFLUENZA, UNSPECIFIED FORMULATION 2023 88 complet ed [facility] INFLUENZA, UNSPECIFIED FORMULATION 2021 88 complet ed [facility] COVID-19 (MODERNA), MRNA, LNP-S, PF, 100 MCG OR 50 MCG DOSE 3 2020 207 complet ed MOD; [id number]; 2 [facility] COVID-19 (MODERNA), MRNA, LNP-S, PF, 100 MCG/0.5 ML DOSE 2 2020 207 complet ed MOD; [id number]; 1 [facility] COVID-19 (MODERNA), MRNA, LNP-S, PF, 100 MCG/0.5 ML DOSE 1 2020 207 complet ed MOD; [id number]; 1 [facility] [...] ed received in community flu clinic at [facility] [place] [facility] [...] Aug 09, 2022 09:43 AM Reporting Lab: [facility] [address] [facility] [address] Performing Lab: [facility] [address] [facility] [address] [facility] HEMOGLOBI N [...] Aug 09, 2022 09:43 AM Reporting Lab: [address] [address] Performing Lab: [facility] [address] [facility] [address] [facility] TSH THYROTROPIN [UNITS/VOLU ME] IN SERUM OR PLASMA 11.71 u[IU]/ mL 0.35 - 5.00 08/09 H Specimen Type: SERUM Comment: BUN Verified by repeat analysis. Ordering Provider: SKYLAR ARRIOLA Report Released Date/Time: Aug 09, 2022 09:43 AM Reporting Lab: [address] [address] Performing Lab: [facility] [place] [facility] [address] [facility] [address] [facility] [place] [facility] LIVER FUNCTION PROTEIN [MASS/VOLUM E] IN SERUM OR PLASMA 7.5 g/dL 6.0 - 8.3 08/09 Specimen Type: SERUM Comment: BUN Verified by repeat analysis. Ordering Provider: SKYLAR ARRIOLA Report Released Date/Time: Aug 09, 2022 09:43 AM Reporting Lab: [facility] [place] [facility] [address] [facility] [address] Performing Lab: [facility] [place] [facility] [address] [facility] [address] [facility] [place] [facility] LIVER FUNCTION ALBUMIN [MASS/VOLUM E] IN SERUM OR PLASMA 4.6 g/dL 3.5 - 5.0 08/09 Specimen Type: SERUM Comment: BUN Verified by repeat analysis. Ordering Provider: SKYLAR ARRIOLA Report Released Date/Time: Aug 09, 2022 09:43 AM Reporting Lab: [facility] [place] [facility] [address] [facility] [address] Performing Lab: [facility] [place] [facility] [address] [facility] [address] [facility] [place] [facility] LIVER FUNCTION ALKALINE PHOSPHATASE [ENZYMATIC ACTIVITY/VO LUME] IN SERUM OR PLASMA 87 U/L 40 - 150 08/09 Specimen Type: SERUM Comment: BUN Verified by repeat analysis. Ordering Provider: SKYLAR ARRIOLA Report Released Date/Time: Aug 09, 2022 09:43 AM Reporting Lab: [facility] [place] [facility] [address] [facility] [address] Performing Lab: [facility] [place] [facility] [address] [facility] [address] [facility] [place] [facility] LIVER FUNCTION ASPARTATE AMINOTRANSF ERASE [ENZYMATIC ACTIVITY/VO LUME] IN SERUM OR PLASMA 34 U/L 5 - 34 08/09 Specimen Type: SERUM Comment: BUN Verified by repeat analysis. Ordering Provider: SKYLAR ARRIOLA Report Released Date/Time: Aug 09, 2022 09:43 AM Reporting Lab: [facility] [place] [facility] [address] [facility] [address] Performing Lab: [facility] [place] [facility] [address] [facility] [address] [facility] [place] [facility] LIVER FUNCTION ALANINE AMINOTRANSF ERASE [ENZYMATIC ACTIVITY/VO LUME] IN SERUM OR PLASMA 35 U/L 6 - 55 08/09 Specimen Type: SERUM Comment: BUN Verified by repeat analysis. Ordering Provider: SKYLAR ARRIOLA Report Released Date/Time: Aug 09, 2022 09:43 AM Reporting Lab: [facility] [place] [address] [address] Performing Lab: [facility] [place] [address] [address] [facility] [place] [facility] LIVER FUNCTION BILIRUBIN.T OTAL [MASS/VOLUM E] IN SERUM OR PLASMA 0.6 mg/dL 0.2 - 1.2 08/09 Specimen Type: SERUM Comment: BUN Verified by repeat analysis. Ordering Provider: SKYLAR ARRIOLA Report Released Date/Time: Aug 09, 2022 09:43 AM Reporting Lab: [facility] [place] [address] [address] Performing Lab: [facility] [place] [address] [address] [facility] [place] [facility] BASIC METABOLIC PANEL (non-fast ing) UREA NITROGEN [MASS/VOLUM E] IN SERUM OR PLASMA 27 mg/dL 7 - 25 08/09 H Specimen Type: SERUM Comment: BUN Verified by repeat analysis. Ordering Provider: SKYLAR ARRIOLA Report Released Date/Time: Aug 09, 2022 09:43 AM Reporting Lab: [facility] [place] [address] [address] Performing Lab: [facility] [place] [address] [address] [facility] BASIC METABOLIC PANEL (non-fast ing) GLUCOSE [MASS/VOLUM E] IN SERUM OR PLASMA 126 mg/dL 65 - 100 08/09 H Specimen Type: SERUM Comment: BUN Verified by repeat analysis. Ordering Provider: SKYLAR ARRIOLA Report Released Date/Time: Aug 09, 2022 09:43 AM Reporting Lab: [address] [address] Performing Lab: [facility] [address] [address] [facility] BASIC METABOLIC PANEL (non-fast ing) SODIUM [MOLES/VOLU ME] IN SERUM OR PLASMA 142 mmol/L 135 - 145 08/09 Specimen Type: SERUM Comment: BUN Verified by repeat analysis. Ordering Provider: SKYLAR ARRIOLA Report Released Date/Time: Aug 09, 2022 09:43 AM Reporting Lab: [address] [address] Performing Lab: [address] [address] [facility] BASIC METABOLIC PANEL (non-fast ing) POTASSIUM [MOLES/VOLU ME] IN SERUM OR PLASMA 4.6 mmol/L 3.5 - 5.0 08/09 Specimen Type: SERUM Comment: BUN Verified by repeat analysis. Ordering Provider: SKYLAR ARRIOLA Report Released Date/Time: Aug 09, 2022 09:43 AM Reporting Lab: [address] [address] Performing Lab: [address] [address] [facility] BASIC METABOLIC PANEL (non-fast ing) CHLORIDE [MOLES/VOLU ME] IN SERUM OR PLASMA 105 mmol/L 100 - 110 08/09 Specimen Type: SERUM Comment: BUN Verified by repeat analysis. Ordering Provider: SKYLAR ARRIOLA Report Released Date/Time: Aug 09, 2022 09:43 AM Reporting Lab: [facility] [address] Performing Lab: [facility] [address] [facility] BASIC METABOLIC PANEL (non-fast ing) CARBON DIOXIDE, TOTAL [MOLES/VOLU ME] IN SERUM OR PLASMA 26 meq/L 20 - 30 08/09 Specimen Type: SERUM Comment: BUN Verified by repeat analysis. Ordering Provider: SKYLAR ARRIOLA Report Released Date/Time: Aug 09, 2022 09:43 AM Reporting Lab: [facility] [address] [address] Performing Lab: [facility] [address] [facility] BASIC METABOLIC PANEL (non-fast ing) CREATININE [MASS/VOLUM E] IN SERUM OR PLASMA 1.92 mg/dL 0.50 - 1.40 08/09 H Specimen Type: SERUM Comment: BUN Verified by repeat analysis. Ordering Provider: SKYLAR ARRIOLA Report Released Date/Time: Aug 09, 2022 09:43 AM Reporting Lab: [facility] [address] [address] Performing Lab: [facility] [address] [facility] TRN [facility] BASIC METABOLIC PANEL (non-fast ing) GLOMERULAR FILTRATION RATE/1.73 SQ M.PREDICTED [VOLUME RATE/AREA] IN SERUM, PLASMA OR BLOOD BY CREATININE- BASED FORMULA (CKD-EPI) 33 mL/min 60 08/09 L Specimen Type: SERUM Comment: BUN Verified by repeat analysis. Ordering Provider: SKYLAR ARRIOLA Report Released Date/Time: Aug 09, 2022 09:43 AM Reporting Lab: [facility] [address] Performing Lab: [facility] [place] [facility] [address] [facility] [address] [facility] [place] [facility] CBC AND DIFF (AUTO) LEUKOCYTES [#/VOLUME] IN BLOOD BY AUTOMATED COUNT 9.01 10*3/u L 4.50 - 11.00 08/09 Specimen Type: BLOOD No comment entered. Ordering Provider: SKYLAR ARRIOLA Report Released Date/Time: Aug 09, 2022 09:43 AM Reporting Lab: [facility] [place] [facility] [address] [facility] [address] Performing Lab: [facility] [place] [facility] [address] [facility] [address] [facility] [place] [facility] CBC AND DIFF (AUTO) ERYTHROCYTE S [#/VOLUME] IN BLOOD BY AUTOMATED COUNT 3.97 10*6/u L 4.23 - 5.66 08/09 L Specimen Type: BLOOD No comment entered. Ordering Provider: SKYLAR ARRIOLA Report Released Date/Time: Aug 09, 2022 09:43 AM Reporting Lab: [facility] [place] [facility] [address] [facility] [address] Performing Lab: [facility] [place] [facility] [address] [facility] [address] [facility] TS [facility] CBC AND DIFF (AUTO) HEMOGLOBIN [MASS/VOLUM E] IN BLOOD 14.1 g/dL 12.8 - 17 08/09 Specimen Type: BLOOD No comment entered. Ordering Provider: SKYLAR ARRIOLA Report Released Date/Time: Aug 09, 2022 09:43 AM Reporting Lab: [facility] [place] [facility] [address] [facility] [address] Performing Lab: [facility] [address] [address] [facility] CBC AND DIFF (AUTO) HEMATOCRIT [VOLUME FRACTION] OF BLOOD BY AUTOMATED COUNT 41.5 39.2 - 50.4 08/09 Specimen Type: BLOOD No comment entered. Ordering Provider: SKYLAR ARRIOLA Report Released Date/Time: Aug 09, 2022 09:43 AM Reporting Lab: [facility] [place] [facility] [address] [facility] [address] Performing Lab: [facility] [place] [facility] [address] [facility] [address] [facility] [place] [facility] CBC AND DIFF (AUTO) MCV [ENTITIC VOLUME] BY AUTOMATED COUNT 104.5 fL 82 - 99 08/09 H Specimen Type: BLOOD No comment entered. Ordering Provider: SKYLAR ARRIOLA Report Released Date/Time: Aug 09, 2022 09:43 AM Reporting Lab: [facility] [place] [facility] [address] [facility] [address] Performing Lab: [facility] [place] [facility] [address] [facility] [address] [facility] [place] [facility] CBC AND DIFF (AUTO) MCHC [MASS/VOLUM E] BY AUTOMATED COUNT 34.0 g/dL 30.8 - 35.1 08/09 Specimen Type: BLOOD No comment entered. Ordering Provider: SKYLAR ARRIOLA Report Released Date/Time: Aug 09, 2022 09:43 AM Reporting Lab: [facility] [place] [facility] [address] [facility] [address] Performing Lab: [facility] [place] [address] [address] [facility] [place] [facility] CBC AND DIFF (AUTO) PLATELETS [#/VOLUME] IN BLOOD BY AUTOMATED COUNT 174 10*3/u L 140 - 360 08/09 Specimen Type: BLOOD No comment entered. Ordering Provider: SKYLAR ARRIOLA Report Released Date/Time: Aug 09, 2022 09:43 AM Reporting Lab: [facility] [place] [facility] [address] [facility] [address] Performing Lab: [facility] [place] [address] [address] [facility] CBC AND DIFF (AUTO) ERYTHROCYTE DISTRIBUTIO N WIDTH [RATIO] BY AUTOMATED COUNT 13.2 12.0 - 16.0 08/09 Specimen Type: BLOOD No comment entered. Ordering Provider: SKYLAR ARRIOLA Report Released Date/Time: Aug 09, 2022 09:43 AM Reporting Lab: [facility] [place] [address] [address] Performing Lab: [facility] [place] [address] [address] [facility] [place] [facility] CBC AND DIFF (AUTO) MONOCYTES [#/VOLUME] IN BLOOD BY AUTOMATED COUNT 0.55 10*3/u L 0.30 - 1.10 08/09 Specimen Type: BLOOD No comment entered. Ordering Provider: SKYLAR ARRIOLA Report Released Date/Time: Aug 09, 2022 09:43 AM Reporting Lab: [facility] [place] [address] [address] Performing Lab: [facility] [place] [address] [address] [facility] [place] [facility] CBC AND DIFF (AUTO) MCH [ENTITIC MASS] BY AUTOMATED COUNT 35.5 pg 26.2 - 32.6 08/09 H Specimen Type: BLOOD No comment entered. Ordering Provider: SKYLAR ARRIOLA Report Released Date/Time: Aug 09, 2022 09:43 AM Reporting Lab: [facility] [place] [address] [address] Performing Lab: [facility] [place] [address] [address] [facility] [place] [facility] CBC AND DIFF (AUTO) NEUTROPHILS /100 LEUKOCYTES IN BLOOD BY AUTOMATED COUNT 73.2 43.7 - 75.8 08/09 Specimen Type: BLOOD No comment entered. Ordering Provider: SKYLAR ARRIOLA Report Released Date/Time: Aug 09, 2022 09:43 AM Reporting Lab: [facility] [place] [address] [address] Performing Lab: [facility] [address] [facility] [address] [facility] [place] CBC AND DIFF (AUTO) LYMPHOCYTES /100 LEUKOCYTES IN BLOOD BY AUTOMATED COUNT 17.9 14.0 - 42.3 08/09 Specimen Type: BLOOD No comment entered. Ordering Provider: SKYLAR ARRIOLA Report Released Date/Time: Aug 09, 2022 09:43 AM Reporting Lab: [facility] [address] [facility] [address] Performing Lab: [facility] [address] [place] [address] [facility] CBC AND DIFF (AUTO) MONOCYTES/1 00 LEUKOCYTES IN BLOOD BY AUTOMATED COUNT 6.1 5.1 - 13.7 08/09 Specimen Type: BLOOD No comment entered. Ordering Provider: SKYLAR ARRIOLA Report Released Date/Time: Aug 09, 2022 09:43 AM Reporting Lab: [facility] [address] [place] [address] Performing Lab: [facility] [address] [place] [address] [facility] CBC AND DIFF (AUTO) EOSINOPHILS /100 LEUKOCYTES IN BLOOD BY AUTOMATED COUNT 2.0 0.4 - 6.8 08/09 Specimen Type: BLOOD No comment entered. Ordering Provider: SKYLAR ARRIOLA Report Released Date/Time: Aug 09, 2022 09:43 AM Reporting Lab: [facility] [address] [facility] [address] Performing Lab: [facility] [address] [place] [address] [facility] CBC AND DIFF (AUTO) BASOPHILS/1 00 LEUKOCYTES IN BLOOD BY AUTOMATED COUNT 0.6 0.1 - 2.0 08/09 Specimen Type: BLOOD No comment entered. Ordering Provider: SKYLAR ARRIOLA Report Released Date/Time: Aug 09, 2022 09:43 AM Reporting Lab: [facility] [place] [facility] [address] [facility] [address] Performing Lab: [facility] [place] [facility] [address] [facility] [address] [facility] [place] CBC AND DIFF (AUTO) NEUTROPHILS [#/VOLUME] IN BLOOD BY AUTOMATED COUNT 6.60 10*3/u L 2.20 - 7.60 08/09 Specimen Type: BLOOD No comment entered. Ordering Provider: SKYLAR ARRIOLA Report Released Date/Time: Aug 09, 2022 09:43 AM Reporting Lab: [facility] [place] [address] [address] Performing Lab: [facility] [place] [facility] [address] [facility] [address] [facility] [place] [facility] CBC AND DIFF (AUTO) LYMPHOCYTES [#/VOLUME] IN BLOOD BY AUTOMATED COUNT 1.61 10*3/u L 1.00 - 3.20 08/09 Specimen Type: BLOOD No comment entered. Ordering Provider: SKYLAR ARRIOLA Report Released Date/Time: Aug 09, 2022 09:43 AM Reporting Lab: [facility] [place] [facility] [address] [facility] [address] Performing Lab: [facility] [place] [address] [address] [facility] [place] [facility] CBC AND DIFF (AUTO) EOSINOPHILS [#/VOLUME] IN BLOOD BY AUTOMATED COUNT 0.18 10*3/u L 0.03 - 0.44 08/09 Specimen Type: BLOOD No comment entered. Ordering Provider: SKYLAR ARRIOLA Report Released Date/Time: Aug 09, 2022 09:43 AM Reporting Lab: [facility] [place] [facility] [address] [facility] [address] Performing Lab: [facility] [place] [address] [address] [facility] CBC AND DIFF (AUTO) BASOPHILS [#/VOLUME] IN BLOOD BY AUTOMATED COUNT 0.05 10*3/u L 0.01 - 0.13 08/09 Specimen Type: BLOOD No comment entered. Ordering Provider: SKYLAR ARRIOLA Report Released Date/Time: Aug 09, 2022 09:43 AM Reporting Lab: [facility] [place] [facility] [address] [facility] [address] Performing Lab: [facility] [address] [facility] [address] [facility] [place] [facility] CBC AND DIFF (AUTO) IMMATURE GRANULOCYTE S/100 LEUKOCYTES IN BLOOD BY AUTOMATED COUNT 0.2 0.0 - 0.7 08/09 Specimen Type: BLOOD No comment entered. Ordering Provider: SKYLAR ARRIOLA Report Released Date/Time: Aug 09, 2022 09:43 AM Reporting Lab: [facility] [address] [address] Performing Lab: [facility] [place] [place] [facility] [address] [facility] [address] [facility] CBC AND DIFF (AUTO) IMMATURE GRANULOCYTE S [#/VOLUME] IN BLOOD 0.02 10*3/u L 0.00 - 0.06 08/09 Specimen Type: BLOOD No comment entered. Ordering Provider: SKYLAR ARRIOLA Report Released Date/Time: Aug 09, 2022 09:43 AM Reporting Lab: [facility] [place] [place] [facility] [address] [facility] [address] Performing Lab: [facility] [place] [address] [address] [facility] Vital Signs Combined list of inpatient and outpatient Vital Signs from Department of Defense and Veterans Affairs, ranging from 12 months to all on record, depending upon the facility. Vital Sign Value Date Comments Source SYSTOLIC BLOOD PRESSURE 131 04/17/20 24 10:06:11 [facility] DIASTOLIC BLOOD PRESSURE 70 024 10:06:11 [facility] [place] [facility] PULSE OXIMETRY 97 04/17/2024 10:06:11 [...] included; 2) Encounters from the Department of [place] facilities going backup to 280 months. Location Location Details Encounter Type Encounter Number Reason For Visit Attending Provider ADM Date DC Date Status Disposition Source [facility] Encounter [id number] 02/07 [facility]counter [id number] 02/20 [facility] Out[facility]counter [id number] 04/23 [facility] OFFICE O/P EST LOW 20-29 MIN [id number] Diagnos is: ICD-10- CM E11.22 Type 2 diabete s mellitu s w diabeti c chronic kidney disease SKYLAR LEMUS 05/03 [facility] HEARING AID REPAIR/MOD IFYING [id number] Diagnos is: ICD-10- CM H90.3 Sensori neural hearing loss, bilater al SENIOR,JOHNSON OLE L 05/24 [facility] Outpatient Encounter [id number] 06/01 [facility] OFFICE O/P EST SF 10 MIN [id number] Diagnos is: ICD-10- CM E11.9 Type 2 diabete s mellitu s without complic ations Juan A MACHUCA AVID 06/06 [facility] Out[facility] [id number] 09/24 [facility] Outpatient Encounter [id number] 09/24 [facility] Encounter [id number] 10/22 [facility] Outpatient Encounter [id number] Diagnos is: ICD-10- CM S46.911 A Strain unsp musc/fa sc/tend at shldr/u p arm, right arm, init 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,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 HAND 10/24 [facility] DETERMINE REFRACTIVE STATE [id number] Diagnos is: ICD-10- CM E11.9 Type 2 diabete s mellitu s without complic ations SOSA,LACE Y J 12/24 [facility] CPTR OPHTH DX IMG POST SEGMT [id number] Diagnos is: ICD-10- CM 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 Diagnos is: ICD-10- CM Z13.89 Encount er for screeni ng for other disorde r DARCIE HAIR ICA A 02/06 [facility] TRIM NAIL(S) [id number] 1. Diagnos is: ICD-10- CM E11.9 Type 2 diabete s mellitu s without complic ations VICENTE MANZANO 02/06 [facility] Outpatient Encounter [id number] Diagnos is: ICD-10- CM L57.0 Actinic keratos is MARY ARIAS PH J 02/07 [facility] Outpatient Encounter [id number] 02/07 [facility] Outpatient Encounter [id number] 02/10 [facility] OFFICE O/P EST MOD 30 MIN [id number] Diagnos is: ICD-10- CM E11.9 Type 2 diabete s mellitu s without complic ations SHAYE MURPHYSKYLAR G 04/17 [facility] [place] [facility] [place] [facility] TRIM NAIL(S) [id number] Diagnos is: ICD-10- CM E11.9 Type 2 diabete s mellitu s without complic atVICENTE Bowen 06/09 [facility] [place] [facility] Social History Combined list of available smoking, tobacco, and other social history from Department of Defense and Veterans Affairs facilities. Social History Type Response Date Comment Source Tobacco smoking status VAIS ME-TOBACCO USE FORMER CIGARETTES 04/17/2024 [facility] [place] [facility] OTHER [facility] 04[facility]17/2024 [facility] [place] [facility] History of tobacco use ME-TOBACCO FORMER USER 05/03/2023 [facility] [place] [facility] History of tobacco use ME-TOBACCO FORMER USER 10/26/2021 [facility] [place] [facility] History of [facility] OR MORE 08/19/2020 [facility] [place] [facility] History of tobacco use ME-TOBACCO QUIT 15 YRS OR MORE 05/21/2018 [facility] [place] [facility] History of tobacco use ME-TOBACCO NEVER USED 05/21/2018 [facility] [place] [facility] History of tobacco use QUIT TOBACCO USE > 7 YEARS AGO 05/09/2017 quit 35 yrs ago [facility] [facility] History of tobacco use LIFETIME NON-TOBACCO USER 05/09/2016 [facility] [place] [facility] History of tobacco use QUIT TOBACCO USE > 7 YEARS AGO 05/06/2015 pt states he stopped smoking 20 yrs ago [facility] [place] [facility] History of tobacco use QUIT TOBACCO USE > 7 YEARS AGO 04/05/2009 QUIT 15 YEARS AGO [facility] [place] [facility] Plan of Care List of future care activities from Department of Veterans Affairs facilities. Additional future care activities may be listed in the Assessment and Plan section. Date/Time Care Activity Care Activity Detail Facili ty 10/08/2024 AMBULATORY - MEDICINE AMBULATORY - MEDICI [facility]
[2024-07-29 08:22] LABS: Prothrombin Time Whole Bld POC 31.4 sec (11.1-13.5); ~PT, ~INR - Anti Coag Clinic 2.6 (0.9-1.1)
--- NOTE | 2024-07-29 08:23 | MHC.OFFVISCO ---
Intake Intake Visit Reasons: Anticoagulation Allergies hydralazine [Hydralazine] Allergy (Unknown, Verified 07/29/24 08:15) SEVERE HEADACHE Medication List - Last Reconciled 07/29/24 by Elisa Kline, RN amlodipine 2.5 mg PO DAILY 90 days ascorbic acid (vitamin C) PO DAILY blood sugar diagnostic As directed blood sugar diagnostic (OneTouch Ultra Test strips) 1 strip miscellaneous BID 1 month bumetanide 1 mg PO Q OTHER DAY 90 days glipizide ER 2.5 mg PO DAILY 90 days lancets One Touch Ultra Test Strips As directed to test blood sugar twice a day. Ninety day supply lancets (OneTouch UltraSoft 2 Lancet) As directed levothyroxine 125 mcg PO DAILY lisinopril 5 mg PO DAILY 90 days meclizine 12.5 mg PO BID-QID PRN multivitamin (Daily Multi-Vitamin) PO pravastatin 40 mg PO DAILY tadalafil 5 mg PO DAILY 90 days tamsulosin 0.4 mg PO BEDTIME 90 days warfarin 4 mg See Protocol PO DAILY Nursing Note INR: 2.6 in therapeutic range of 2-3 Medications and supplements reviewed No changes in health, diet, medications, or supplements, Denies any signs and symptoms of bleeding or bruising or clotting. 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
== END 2024-07-29 08:31 | disposition home or self-care (01) ==
LOC: HO.ACS 07:59
PROVIDERS: PCP Family Medicine; Visit Provider Internal Medicine Medical Oncology
DX: Z79.01 Long term (current) use of anticoagulants (principal)

== ENCOUNTER → 2024-07-29 07:59 | Outpatient (BNVA) | payer BC, SELFPAY | PROVIDERS: PCP Family Medicine; Visit Provider Internal Medicine Medical Oncology | DX: I48.0 Paroxysmal atrial fibrillation (principal); Z51.81 Encounter for therapeutic drug level monitoring; Z79.01 Long term (current) use of anticoagulants | CPT/HCPCS: 85610; 99211 ==

== ENCOUNTER 2024-08-12 08:05 | Outpatient (AMB) | payer BC, SELFPAY ==
[2024-08-12 08:11] LABS: Prothrombin Time Whole Bld POC 28.4 sec (11.1-13.5); ~PT, ~INR - Anti Coag Clinic 2.4 (0.9-1.1)
--- OUTSIDE RECORDS SUMMARY | 2024-08-12 08:13 | XMS_ITS | Encounter Summary ---
Author Name [facility] [place] [facility] [place] [place] Address [address] [place] [id number] Care Team Providers Care Fudge Candy Maker Name Role Phone SKYLAR GREGORY Primary Care [...] Name Patient's Relationship to Policy Witt [facility] MARK EUCEDA (WNR) MEDICARE ADVANTAGE [place] PPO BLUE [employer] RX May 07, 2017 [id number] MILLIE AG SR PATIENT Selected Encounter This section includes the information on record at [place] for the Encounter. Date/Time Encounter Type Encounter Description Reason Provider Source Aug 07, 2024 02:00 PM OFFICE O/P NEW MOD 45 MIN DERMATOLOGY ICD-10-CM L57.0 Actinic keratosis MATILDE ALBRIGHT [place] Encounter Template Text not used by [place] Assessments - Encounter Diagnoses This section includes the primary and secondary diagnoses documented for the Encounter. Date/Time Primary/Secondary Diagnosis Diagnosis Name Provider Source Aug 07, 2024 02:30 PM PRIMARY Actinic keratosis OZZIE ALBRIGHT [place] [facility] [place] [facility] Aug 07, 2024 02:30 PM SECONDARY Other melanin hyperpigmentation [facility] [place] [facility] Aug 07, 2024 02:30 PM SECONDARY Other seborrheic keratosis [facility]IE ALBRIGHT [facility] Plan of Treatment: Future Appointments (+ 6 months) and Future Tests (+/- 45 days) The Plan of Treatment section includes future care activities for the patient from all [place] [facility]. This section includes future appointments and future orders which are active, pending or scheduled. Future Appointments This section includes appointments that were scheduled to occur 6 months from the date of the Encounter, up to a maximum of 20 appointments. The data comes from all [place] treatment facilities. Appointment Date/Time Appointment Type Appointme nt Facility Name Oct 08, 2024 10:00 AM AMBULATORY - MEDICINE [facility] Oct 30, 2024 10:00 AM AMBULATORY MEDICINE [facility] Dec 30, 2024 08:30 [facility] Social History: Smoking Status (Most current) and Tobacco Use (All prior to encounter date) This section includes the most current, and the historical, smoking and tobacco- related health factors from the [place] facility where the Encounter took place. Current Smoking Status This section includes the most current smoking, or tobacco-related health factor, from the [place] facility where the Encounter took place. Date/Time Current Smoking Status Comment [facility] Apr 17, 2024 10:00 AM VA-TOBACCO USE FOR JACINTO CIGARETTES [facility] Tobacco Use History This section includes a history of the smoking, or tobacco-related health factors, that were collected on or before the date of the Encounter. The data comes from the [place] facility where the Encounter took place. Date/Time Smoking Status/Tobac co Use Comment Facility Apr 17, 2024 10:00 AM VA-TOBACCO USE FORMER CIGARETTES [place] [facility] May 03, 2023 09:30 AM VA-TOBACCO [facility] [place] [facility] May 03, 2023 09:30 AM VA-TOBACCO QUIT 15 YRS OR MORE [facility] Oct 26, 2021 10:00 AM VA[facility]TOBACCO [facility] [place] [facility] Oct 26, 2021 10:00 AM VA-TOBACCO QUIT 15 YRS OR MORE [place] [facility] [place] [facility] Aug 19, 2020 08:30 AM VA-TOBACCO FORMER USER [place] [facility] [place] [facility] Aug 19, 2020 08:30 AM VA-TOBACCO QUIT 15 YRS OR MORE [place] [facility] [place] [facility] May 21, 2018 09:36 AM VA-TOBACCO FORMER USER [place] [facility] [place] [facility] May 21, 2018 09:36 AM VA-TOBACCO QUIT 15 YRS OR MORE [place] [facility] [place] [facility] May 21, 2018 08:51 AM VA-TOBACCO NEVER USED [place] [facility] [place] [facility] May 09, 2017 09:38 AM QUIT TOBACCO USE > 7 YEARS AGO quit 35 yrs ago [place] [facility] [place] [facility] May 09, 2016 09:45 AM LIFETIME NON-TOBACCO USER [place] [facility] [place] [facility] May 06, 2015 08:02 AM QUIT TOBACCO USE > 7 YEARS AGO pt states he stopped smoking 20 yrs ago [place] [facility] [place] [facility] Apr 05, 2009 02:04 PM QUIT TOBACCO USE > 7 YEARS AGO QUIT 15 YEARS AGO [facility] [place] [place] [facility] Encounter Notes: All associated encounter notes This section contains the clinical notes associated to the Encounter. Date/Time Encounter Note(s) Provider Source Aug 07, 2024 02:05 PM DERMATOLOGY CONSULT: LOCAL TITLE: CONSULT REPORT/DERMATOLOGY STANDARD TITLE: DERMATOLOGY CONSULT DATE OF NOTE: AUG 07, 2024@14:05 ENTRY DATE: AUG 07, 2024@14:05:39 AUTHOR: TERESA ALBRIGHT EXP COSIGNER: URGENCY: STATUS: COMPLETED AUG 07, 2024 MILLIE AG Apr 89 PATIENT PHONE - Patient here for: NEW CONSULT CHIEF COMPLAINT: Actinic Keratosis HPI: presents s/p TeleDerm 02/2024. Reviewed images and report; AKs - cryo advised. Lewis denies any other new/changing/bleeding/non-heali ng lesions. Reviewed records in [facility] and Remote Data (all available). REVIEW OF SYSTEMS: Constitutional-neg Skin/Hair/Nails-see HPI DermHx: Denies h/o MM or NMSC Family Hx: Denies known h/o MM PastMedHx: Reviewed History of Sun Exposure/Sunburns: Denies h/o blistering eldridge or tanning bed use. Active Outpatient Medications (including Supplies): Active Outpatient Medications Status 1) CARBOXYMETHYLCELLULOSE NA 0.5% OPH SOLN INSTILL 1 DROP INTO ACTIVE EACH EYE FOUR TIMES A DAY Indication: FOR DRY EYE Active Non-VA Medications Status 1) Non-VA AMLODIPINE BESYLATE 2.5MG TAB 2.5MG BY MOUTH ONCE ACTIVE DAILY 2) Non-VA BUMETANIDE 1MG TAB 1MG BY MOUTH ONCE DAILY ACTIVE Indication: TO REMOVE FLUID/CONTROL BLOOD PRESSURE 3) Non-VA GLIPIZIDE 5MG TAB 2.5MG BY MOUTH ACTIVE 4) Non-VA LEVOTHYROXINE NA 125MCG TAB 125MCG BY MOUTH ONCE ACTIVE DAILY 5) Non-VA LISINOPRIL 10MG TAB 10MG BY MOUTH ONCE DAILY ACTIVE 6) Non-VA PRAVASTATIN NA 40MG TAB 40MG BY MOUTH AT BEDTIME ACTIVE 7 Total Medications PHYSICAL EXAM: Doan Skintype II General-AxOx3, NAD, pleasant, breathing unlabored, speech clear Focused cutaneous examination, as permitted by the patient, including scalp, face, eyes, ears, neck, arms, hands, fingers Pertinent findings per below: -Multiple thin erythematous gritty papules and plaques noted to L zygoma, R lateral zygoma, R lateral cheek [R ear lesion resolved] -Scattered uniformly pigmented light morrison and brown jagged macules in sun distributed areas. -Multiple scattered stuck-on appearing waxy morrison and brown papules and plaques with noted milia-like cysts, comedo-like openings and fissures/ridges on dermoscopy. Diagnosis/Plan: #Actinic Keratosis: -Location: L zygoma, R lateral zygoma, R lateral cheek -Lewis educated on relationship to squamous cell carcinoma. -Treatment options discussed. -Liquid nitrogen cryotherapy performed as a destructive method. -Verbal consent given. -Liquid nitrogen (2 cycles x 5-8sec) x #4 lesions performed. -Side effects including but not limited to redness, crusting, swelling, blistering, hypopigmentation and scarring discussed. -Photoprotection discussed. #Seborrheic Keratoses: -The Lewis was educated regarding the benign nature, but to return with any growth, change or symptoms in area. #Solar Lentigines -The was educated regarding the benign nature and relation to chronic sun exposure, but to return with any growth, change or symptoms in area. -Photoprotection discussed. RTC 1 yr, sooner PRN * educated to RTC keya if any new, changing, non-healing, or symptomatic lesions. * Education on sun protection and avoidance strategies was provided. * Encouraged monthly skin self exams for lesions changing in size, shape, or color, or non-healing lesions * Differential diagnosis, prescription options and risks/benefits were discussed with the patient, who consented to treatment plan. * Lewis consented to photography for documentation if indicated. * A dermatoscope was used during the exam. * NUB = Neoplasm of Uncertain Behavior of Skin * NMSC = Nonmelanoma Skin Cancer * AK = Actinic Keratosis ------TIME ESTIMATION To include but not limied to: -Review of medical records -Time spent with patient including obtaining history, physical exam, shared decision making, procedures and counseling -Post visit documentation; HPI and physical exam findings, clinical researching, medical decision making, medication and lab ordering Total estimated time = 30 min -- Medication Reconciliation: Outpatient: Has the patient been taking medications as documented in the EMLR? YES: The patient has been taking medications as documented in the EMLR. Essential Medication List for Review used to complete this medication reconciliation. INCLUDED IN THIS LIST: Alphabetical list of active outpatient prescriptions dispensed from this [facility] (local) and dispensed from another VA or DoD facility (remote) as well as [...] whether with a VA or non-VA provider. JLV Link Data on this list may not be complete. Please check JLV. Allergies/ADRs (Tool #5) FACILITY ALLERGY/ADR -------- No Remote Allergy/ADR Data available for this patient [place] [facility] [place] [facility] No Known Allergies Med Recon NoGlossary (Tool #1) INCLUDED IN THIS LIST: Alphabetical list of active outpatient prescriptions dispensed from this VA (local) and dispensed from another VA or DoD facility (remote) as well as inpatient orders (local pending and active), local clinic medications, locally documented non-VA medications, and local prescriptions that have or been discontinued in the past 90 days. Non-VA Meds Last Documented On: Apr 17, 2024 NOTE The display of VA prescriptions dispensed from another VA or DoD facility (remote) is limited to active outpatient prescription entries matched to National Drug File at the originating site and may not include some items such as investigational drugs, compounds, etc. NOT INCLUDED IN THIS LIST: Medications self-entered by the patient into personal health records (i.e. [employer]) are NOT included in this list. Non-VA medications documented outside this [place], remote inpatient orders (regardless of status) and remote clinic medications are NOT included in this list. The patient and provider must always discuss medications the patient is taking, regardless of where the medication was dispensed or obtained. Non-VA AMLODIPINE BESYLATE 2.5MG TAB TAKE ONE TABLET BY MOUTH ONCE DAILY Medication prescribed by Non-VA provider. Non-VA BUMETANIDE 1MG TAB TAKE ONE TABLET BY MOUTH ONCE DAILY Medication prescribed by Non-VA provider. Indication: TO REMOVE FLUID/CONTROL BLOOD PRESSURE OUTPT CARBOXYMETHYLCELLULOSE NA 0.5% OPH SOLN (Status = Active) INSTILL 1 DROP INTO EACH EYE FOUR TIMES A DAY FOR DRY EYE Rx# [id number] Last Released: 01/01/24 Qty/Days Supply: Rx Expiration Date: 12/25/24 Refills Remainin Indication: FOR DRY EYE Non-VA GLIPIZIDE 5MG TAB TAKE ONE-HALF TABLET BY MOUTH Medication prescribed by Non-VA provider. Non-VA LEVOTHYROXINE NA 125MCG TAB TAKE ONE TABLET BY MOUTH DAILY Medication prescribed by Non-VA provider. Non-VA LISINOPRIL 10MG TAB TAKE ONE TABLET BY MOUTH ONCE DAILY Medication prescribed by Non-VA provider. Non-VA PRAVASTATIN NA 40MG TAB TAKE ONE TABLET BY MOUTH AT BEDTIME Medication prescribed by Non-VA provider. SUPPLIES /kyalynn/ TERESA ALBRIGHT DNP, AIRCRAFT ENGINE TECHNICIAN-C NURSE PRACTITIONER Signed: 08/07/2024 14:29 TERESA ALBRIGHT [facility]
--- OUTSIDE RECORDS SUMMARY | 2024-08-12 08:13 | XMS_ITS | Continuity of Care Document ---
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) Active 05/07/19 19 Condition May 21, 2018 Entered By: MC DAN Comment: treated with finasteride [facility] Essential hypertension Active 05/07/19 09 Condition [facility] Hearing loss (SNOMED CT 79198108) Active 05/07/19 09 Condition [facility] HLD - Hyperlipidemia Active 05/07/19 09 Condition [facility] Hypothyroidism (SNOMED CT 76254841) Active 05/07/19 09 Condition [facility] Diabetes Mellitus Type 2 (SCT 51204823) Active Condition Apr 17, 2024 Entered By: SKYLAR GREGORY Comment: vet under care of community PCP/ Dr Sheldon Muniz- good glycemic control [facility] History of actinic keratosis Active Condition Feb 08, 2024 Entered By: SKYLAR GREGORY Comment: see tele derm-lesions on right side of face/ vet needs cryotx per derm [facility] Low Back Pain (SCT 176596215) Active Condition Oct 26, 2021 Entered By: [...] Diagnosis: ICD-10-CM L57.0 Actinic keratosis Active Diagnosis [facility] Diagnosis: ICD-10-CM E11.9 Type [...] MOUTH ONCE DAILY ORAL ACTIVE D'ALESSAN RUBENKERI Galindo [facility] BUMETANIDE 1MG TAB TAKE ONE TABLET BY MOUTH ONCE DAILY ORAL ACTIVE D'ALESSAN KERI MIRANDA 2023 [facility] CARBOXYMETH YLCELLULOSE NA 0.5% SOLN,OPH INSTILL 1 DROP INTO EACH EYE FOUR TIMES A DAY FOR DRY EYE OPHTHA LMIC ACTIVE 12/25/2024 [id number] CHE SOSA EY J 2023 45 [facility] GLIPIZIDE 5MG TAB TAKE ONE-HALF TABLET BY MOUTH ORAL ACTIVE D'ALESSAN RUBENKERI HERMELINDO Josie 20[facility] LEVOTHYROXI NE NA 125MCG TAB (SYNTHROID) TAKE ONE TABLET BY MOUTH QD ORAL ACTIVE D'ALESSAN RUBENKERI HERMELINDO Josie 20[facility] LISINOPRIL 10MG TAB TAKE ONE TABLET BY MOUTH ONCE DAILY ORAL ACTIVE D'ALESSAN RUBENKERI Galindo 2023 [facility] PRAVASTATIN NA 40MG TAB TAKE ONE TABLET BY MOUTH AT BEDTIME ORAL ACTIVE PRASHANT DAN 2009 [facility] Immunizations Combined list of available immunizations from the Department of Defense and Veterans Affairs facilities. Immunization Series Date Given Administered By Site Reaction Lot Number CVX Code Drug Manager Client Support Status Comments Source INFLUENZA, UNSPECIFIED FORMULATION 2023 88 complet ed [facility] INFLUENZA, UNSPECIFIED FORMULATION 2021 88 complet [facility] COVID-19 (MODERNA), MRNA, LNP-S, PF, 100 MCG OR 50 MCG DOSE 3 2020 207 complet ed MOD; [id number]; 2 [facility] COVID-19 (MODERNA), MRNA, LNP-S, PF, 100 MCG/0.5 ML DOSE 2 2020 207 complet ed MOD; [id number]; 1 [facility] COVID-19 (MODERNA), MRNA, LNP-S, PF, 100 MCG/0.5 ML DOSE 1 2020 207 complet ed MOD; [id number]; 1 [facility] [...] ed received in community flu clinic at [facility] FLU,3 YRS (HISTORICAL) 2008 88 complet ed [facility] PNEUMOCOCCAL, UNSPECIFIED FORMULATION 2003 109 complet ed [facility] Vital Signs Combined list of inpatient and [...] [facility] [id number] 02/20 [facility] Encounter [id number] 04/23 [facility] OFFICE O/P EST LOW 20-29 MIN [id number] Diagnos is: ICD-10- CM E11.22 Type 2 diabete s mellitu s w diabeti c chronic kidney disease D'TALAT ROSKYLAR 05/03 [facility] HEARING AID REPAIR/MOD IFYING [id number] Diagnos is: ICD-10- CM H90.3 Sensori neural hearing loss, bilater al SENIOR,JOHNSON OLE L 05/24 [facility] Out[facility] Encounter [id number] 06/01 [facility] OFFICE O/P EST SF 10 MIN [id number] Diagnos is: ICD-10- CM E11.9 Type 2 diabete s mellitu s without complic ations Juan A MACHUCA 06/06 [facility] Encounter [id number] 09/24 [facility] [id number] 09/24 [facility] Encounter [id number] 10/22 [facility] Outpatient Encounter [id number] Diagnos is: ICD-10- CM S46.911 A Strain unsp musc/fa sc/tend at shldr/u p arm, right arm, init CHASE,TRACI HEDGE FUND TRADER 10/24 [facility] DETERMINE REFRACTIVE STATE [id number] Diagnos is: ICD-10- CM E11.9 Type 2 diabete s mellitu s without complic ations JACK SOSA 12/24 [facility] CPTR OPHTH DX IMG POST SEGMT [id number] Diagnos is: ICD-10- CM 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 Diagnos is: ICD-10- CM Z13.89 Encount er for screeni ng for other disorde r DARCIE HAIR ICA A 02/06 [facility] TRIM NAIL(S) [id number] 1. Diagnos is: ICD-10- CM E11.9 Type 2 diabete s mellitu s without complic ations VICENTE MANZANO 02/06 [facility] Outpatient Encounter [id number] Diagnos is: ICD-10- CM L57.0 Actinic keratos is MARY ARIAS PH J 02/07 [facility] Out[facility] Encounter [id number] 02/07 [facility] Out[facility] Encounter [id number] 02/10 [facility] OFFICE O/P EST MOD 30 MIN [id number] Diagnos is: ICD-10- CM E11.9 Type 2 diabete s mellitu s without complic ations SHAYE MURPHYSKYLAR Josie 04/17 [facility] TRIM NAIL(S) [id number] Diagnos is: ICD-10- CM E11.9 Type 2 diabete s mellitu s without complic ations JOSE JUANVICENTE GAMALIEL 06/09 [facility] OFFICE O/P NEW MOD 45 MIN [id number] Diagnos is: ICD-10- CM L57.0 Actinic keratos is TERESA ALBRIGHT 08/07 [facility] HEARING AID REPAIR/MOD IFYING [id number] Diagnos is: ICD-10- CM Z46.1 Encount er for fitting and adjustm ent of hearing aid RAYSHAWN SANDHU 08/07 [facility] Social History Combined list of available smoking, [...] of tobacco use VA-TOBACCO FORMER USER 08/19/2020 [facility] History of tobacco use ID-TOBACCO FORMER USER 05/21/2018 [facility] History of tobacco use ID-TOBACCO NEVER USED 05/21/2018 [facility] History of tobacco use QUIT TOBACCO USE > 7 YEARS AGO 05/09/2017 quit 35 yrs ago [facility] History of tobacco use LIFETIME NON-TOBACCO USER 05/09/2016 [facility] History of tobacco use QUIT TOBACCO USE > 7 YEARS AGO 05/06/2015 pt states he stopped smoking 20 yrs ago [facility] History of tobacco use QUIT TOBACCO USE > 7 YEARS AGO 04/05/2009 QUIT 15 YEARS AGO [facility] Plan of Care List of future care activities from Department of [facility] Affairs facilities. Additional future care activities may be listed in the Assessment and Plan section. Date/Time Care Activity Care Activity Detail Facili ty 10/08/2024 AMBULATORY - MEDICINE AMBULATORY - MEDICI [facility]
--- OUTSIDE RECORDS SUMMARY | 2024-08-12 08:13 | XMS_ITS ---
Author Name [facility] Organization [facility] [place] Address [address] [place] [address] Care Team Providers Care Green Material Value Added Assessor Name Role Phone SKYLAR GREGORY Primary Care [...] Witt's Name Patient's Relationship to Policy Witt [facility] MARK [employer] (WNR) MEDICARE ADVANTAGE [place] PPO BLUE SAVER RX May 07, 2017 [id number] [phone] [place]IE AG SR PATIENT Selected Encounter This section includes the information on record at [place] for the Encounter. Date/Time Encounter Type Encounter Description Reason Provider Source Aug 07, 2024 02:30 PM HEARING AID REPAIR/MODIFYING AUDIOLOGY ICD-10-CM Z46.1 Encounter for fitting and adjustment of hearing aid MARTHA SANDHU Encounter Template Text not used by [place] Assessments - Encounter Diagnoses This section includes the primary and secondary diagnoses documented for the Encounter. Date/Time Primary/Secondary Diagnosis Diagnosis Name Provider Source Aug 07, 2024 02:47 PM PRIMARY Encounter for fitting and adjustment of hearing aid ALBANIA FARIAS [facility] [place] [facility] Aug 07, 2024 02:47 PM SECONDARY Sensorineural hearing loss, bilateral [facility] FARIAS [facility] Plan of Treatment: Future Appointments (+ 6 months) and Future Tests (+/- 45 days) The Plan of Treatment section includes future care activities for the patient from all [place] [facility]. This section includes future appointments and future orders which are active, pending or scheduled. Future Appointments This section includes appointments that were scheduled to occur 6 months from the date of the Encounter, up to a maximum of 20 appointments. The data comes from all [place] treatment facilities. Appointment Date/Time Appointment Type Appointme nt Facility Name Oct 08, 2024 10:00 AM AMBULATORY - MEDICINE [facility] Oct 30, 2024 10:00 AM [facility] - [facility]IC[facility] Dec 30, 2024 08:30 AM [facility] Social History: Smoking Status (Most current) and Tobacco Use (All prior to encounter date) This section includes the most current, and the historical, smoking and tobacco- related health factors from the [place] facility where the Encounter took place. Current Smoking Status This section includes the most current smoking, or tobacco-related health factor, from the [place] facility where the Encounter took place. Date/Time Current Smoking Status Comment [facility] Apr 17, 2024 10:00 AM [place]-TOBACCO USE FOR [facility]AC[facility] CIGAR[facility]TES [facility] Tobacco Use History This section includes a history of the smoking, or tobacco-related health factors, that were collected on or before the date of the Encounter. The data comes from the [place] facility where the Encounter took place. Date/Time Smoking Status/Tobac co Use Comment Facility Apr 17, 2024 10:00 AM VA-TOBACCO USE FORMER CIGARETTES [facility] [place] [facility] May 03, 2023 09:30 AM VA-TOBACCO FORMER USER [facility] [place] [facility] May 03, 2023 09:30 AM [place]-TOBACCO QUIT [facility]RS [facility] [facility] Oct 26, 2021 10:00 AM [facility]ACCO [facility] Oct 26, 2021 10:00 AM [place]-TOBACCO QUIT 15 YRS OR MORE [facility] [place] [facility] Aug 19, 2020 08:30 AM VA-TOBACCO FORMER USER [facility] [place] [facility] Aug 19, 2020 08:30 AM VA-TOBACCO QUIT 15 YRS OR MORE [facility] [place] [facility] May 21, 2018 09:36 AM VA-TOBACCO FORMER USER [facility] [place] [facility] May 21, 2018 09:36 AM VA-TOBACCO QUIT 15 YRS OR MORE [facility] [place] [facility] May 21, 2018 08:51 AM VA-TOBACCO NEVER USED [facility] [place] [facility] May 09, 2017 09:38 AM QUIT TOBACCO USE > 7 YEARS AGO quit 35 yrs ago [facility] [place] [facility] May 09, 2016 09:45 AM LIFETIME NON-TOBACCO USER [facility] [place] [facility] May 06, 2015 08:02 AM QUIT TOBACCO USE > 7 YEARS AGO pt states he stopped smoking 20 yrs ago [facility] [place] [facility] Apr 05, 2009 02:04 PM QUIT TOBACCO USE > 7 YEARS AGO QUIT 15 YEARS AGO [facility] [place] [facility] Encounter Notes: All associated encounter notes This section contains the clinical notes associated to the Encounter. Date/Time Encounter Note(s) Provider Source Aug 07, 2024 02:44 PM AUDIOLOGY NOTE: LOCAL TITLE: AUDIOLOGY [facility] OPERATOR STANDARD TITLE: AUDIOLOGY NOTE DATE OF NOTE: AUG 07, 2024@14:44 ENTRY DATE: AUG 07, 2024@14:45 AUTHOR: RODRIGO FARIAS COSIGNER: MARTHA SANDHU URGENCY: STATUS: COMPLETED August 07, 2024 History/Background: was seen for a hearing aid follow up, unaccompanied. The [place] presented today reporting his hearing aids stopped working. Hearing aids: [facility] Serial Numbers: [id number] Battery size: Rechargeable Date Issued: 09/14/2022 Hearing aid check: Both hearing aids were cleaned and checked. Initial inspection revealed both kandi covers missing from the left hearing aid and one missing kandi cover from the right. Both wax guards were blocked with cerumen. Replaced wax guards and kandi covers. Biologic check was good. Plan: Follow up as needed. /kaylynn/ RODRIGO FARIAS Audiology Health Ip Litigation Paralegal Signed: 08/07/2024 14:47 /kaylynn/ MARTHA Mccoy CCC-A CHIEF, AUDIOLOGY/TABLET TESTER Cosigned: 08/08/2024 07:[address] [facility]
--- OUTSIDE RECORDS SUMMARY | 2024-08-12 08:13 | XMS_ITS | Clinical Summary ---
Author Organization [facility] Address [address] [place] [address] Phone Care Team Providers Care Community Sports Coordinator Name Role Phone Patrick Muniz MD Primary [...] Ophthalmology Exam 12/19/2023, 07/21/2022, 12/13/2021 Influenza Vaccine (Season Ended) 2025 01/05/2022, 01/06/2020, 02/05/2016, Additional history exists Hepatitis B Vaccine Aged Out No longe r eligible based on patient's age to complete this topic [place] [address] Care Teams Community Sports Coordinator Relationship Specialty Start Date End Date Patrick Muniz MD [address] [place] [address] [place] [address] PCP - General Family Medicine 04/19/21
--- NOTE | 2024-08-12 08:18 | MHC.OFFVISCO ---
Intake Intake Visit Reasons: Anticoagulation Allergies hydralazine [Hydralazine] Allergy (Unknown, Verified 08/12/24 08:06) SEVERE HEADACHE Medication List - Last Reconciled 08/12/24 by Elisa Kline RN amlodipine 2.5 mg PO DAILY 90 days ascorbic acid (vitamin C) PO DAILY blood sugar diagnostic As directed blood sugar diagnostic (OneTouch Ultra Test strips) 1 strip miscellaneous BID 1 month bumetanide 1 mg PO Q OTHER DAY 90 days glipizide ER 2.5 mg PO DAILY 90 days lancets One Touch Ultra Test Strips As directed to test blood sugar twice a day. Ninety day supply lancets (OneTouch UltraSoft 2 Lancet) As directed levothyroxine 125 mcg PO DAILY lisinopril 5 mg PO DAILY 90 days meclizine 12.5 mg PO BID-QID PRN multivitamin (Daily Multi-Vitamin) PO pravastatin 40 mg PO DAILY tadalafil 5 mg PO DAILY 90 days tamsulosin 0.4 mg PO BEDTIME 90 days warfarin 4 mg See Protocol PO DAILY Nursing Note INR: 2.4 in therapeutic range of 2-3 Medications and supplements reviewed No changes in health, diet, medications, or supplements, Denies any signs and symptoms of bleeding or bruising or clotting. Bleeding, bruising, clotting discussed Nutritional guidance given Dose: 4mg X 6 days and 2 mg X 1 day (Sun) F/U INR: 3 weeks Patient verbalizes understanding of instructions given Anti-Coag Initial Assessment Social Hx Patient Tobacco Use Status: Former Tobacco user alcohol intake: former Alcohol intake frequency: does not drink Coding Level of Care Code Est Patient Level 1 Diagnoses Current use of anticoagulant therapy Z79.01 Results AMB INR Fingerstick AMB INR Fingerstick 2.4 Last Edit by Elisa Kline RN on 08/12/24 08:12 interface delay Assessment & Plan Assessment & Plan (1) Current use of anticoagulant therapy: Comment: critical high INR Code(s): Z79.01 - care home (current) use of 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
== END 2024-08-12 08:19 | disposition home or self-care (01) ==
LOC: HO.ACS 08:05
PROVIDERS: PCP Family Medicine; Visit Provider Internal Medicine Medical Oncology
DX: Z79.01 Long term (current) use of anticoagulants (principal)

== ENCOUNTER → 2024-08-12 08:05 | Outpatient (BNVA) | payer BC, SELFPAY | PROVIDERS: PCP Family Medicine; Visit Provider Internal Medicine Medical Oncology | DX: I48.0 Paroxysmal atrial fibrillation (principal); Z79.01 Long term (current) use of anticoagulants; Z51.81 Encounter for therapeutic drug level monitoring | CPT/HCPCS: 85610; 99211 ==

== ENCOUNTER 2024-08-20 12:42 | Outpatient (AMB) | payer BC, SELFPAY ==
--- NOTE | 2024-08-20 13:16 | A.OFFVIS_ITS ---
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 Ninety day supply lancets (OneTouch UltraSoft 2 Lancet) As directed levothyroxine 125 mcg PO DAILY lisinopril 5 mg PO DAILY 90 days meclizine 12.5 mg PO BID-QID PRN multivitamin (Daily Multi-Vitamin) PO pravastatin 40 mg PO DAILY tadalafil 5 mg PO DAILY 90 days tamsulosin 0.4 mg PO BEDTIME 90 days warfarin 4 mg See Protocol PO DAILY HPI Comments Details: Pleasant 89 gentleman for follow-up. He was previously seen for atrial fibrillation and exertion chest discomfort. He underwent stress testing followed by cardiac catheterization which showed mild coronary artery disease. He is being managed for AFib with a rate control strategy. He was seen by visiting nurses and was thought to be in heart failure. He was started on Bumex. After discussion with him it appears it was started because he had lower extremity edema. He is denying any shortness of breath, orthopnea PND. He said his lower extremities were swollen which previously we felt were due to amlodipine use. On follow up, he has been doing well. No CP or SOB. Clinically stable. 04/02/23: He is here for follow-up. He has been doing well. He has cramp in his left calf at times at rest. With activity or walking around he does not get any pain. Overall clinically stable. Blood pressure control is good. 11/05/2023: He returns for follow-up. He continues to be active and has some chest pains and back pain which are musculoskeletal in origin. I have advised him to continue exercise. Taking medications regularly. Blood pressure is well controlled. He has permanent atrial fibrillation. 05/14/2024: He is here for follow-up. No chest pain or shortness of breath. He has lower extremity edema which is due to amlodipine but he has progression in edema and he is saying he has friends have also noticed that his legs are more swollen. He is taking Bumex every other day. No symptoms/signs of heart failure otherwise. 08/20/2024: [place] is here for follow-up. No chest pains or shortness of breath. His issues are mostly related to arthritis and joint problems which are bothering him. Previously was complaining of lower extremity edema and we stopped the amlodipine. It appears he has been restarted on amlodipine at a lower dose. He does not have any peripheral edema on exam today. [facility] Medical History Chest pain RUQ pain Wheezing Elevated diaphragm Pulmonary nodules Aortic stenosis Edema CAD (coronary artery disease) Diabetes type 2, controlled Elevated prostate specific antigen between 10 and 19 ng/ml Atrial fibrillation Meriden's disease Elevated morning serum cortisol level Surgical History History of cardiac cath Hx of tonsillectomy Hx of colonoscopy Family History Father Colon cancer Mother HTN (hypertension) Type 2 diabetes mellitus Brother No problems noted. Sister No problems noted. Son No problems noted. Son No problems noted. Son No problems noted. Daughter No problems noted. Daughter No problems noted. Social History Housing: Apartment Alcohol intake: former Year quit: 1979 Patient Tobacco Use Status: Former Tobacco user Years Smoked: 45+ e-Cigarette/Vaping Use: Never Used Second Hand Smoke Exposure: No service: Yes (MMIT [id number]) Current occupational status: retired Current occupational exposures/hazards: No Cognitive needs: No Hearing needs: Yes Vision needs: No Review of Systems Const Denies chills, Denies fatigue, Denies fever(s), Denies frequent falls, Denies weakness, Denies weight gain and Denies weight loss ENT Denies dizziness Card Denies chest pain, Denies leg edema, Denies lightheadedness, Denies palpitations, Denies dyspnea and Denies dyspnea on exertion Resp Denies cough, Denies dyspnea and Denies dyspnea on exertion GI Denies hematochezia Musc Denies abnormal gait, Denies muscle weakness, Denies numbness, Denies radiating pain into limb and Denies tingling Neuro Denies abnormal gait, Denies dizziness, Denies frequent falls, Denies numbness, Denies tingling and Denies weakness Endo Denies fatigue and Denies palpitations Physical Exam Vital Signs: Last Vital Signs Pulse 60 08/20/24 13:22 BP 120/64 08/20/24 13:22 BMI result Body Mass Index 27.3 GENERAL APPEARANCE: in no acute distress, pleasant. NECK: no carotid bruit, no jugular venous distention. SKIN: no suspicious lesions, warm and dry. HEART: no murmurs, irregular rate and rhythm. LUNGS: clear to auscultation bilaterally. ABDOMEN: soft, nontender. EXTREMITIES: No edema. PERIPHERAL PULSES: equal. NEUROLOGIC: No gross deficits, AAO X 3 Assessment & Plan Assessment & Plan (1) Swelling of lower extremity: Code(s): M79.89 - Other specified soft tissue disorders Category: Medical (2) Essential hypertension: Code(s): I10 - Essential (primary) hypertension Category: Medical (3) Atrial fibrillation: Code(s): I48.91 - Unspecified atrial fibrillation Category: Medical Plan Pleasant 89-year-old gentleman with history of permanent atrial fibrillation, hypertension and peripheral edema. Heart rate is well controlled. Blood pressure control is good. Peripheral edema secondary to amlodipine. This was discontinued but it appears he has been restarted at a lower dose. In any case his lower extremity edema has improved. Same medications for now. Follow-up with us in 6 months. Thank you for allowing me to participate in the care of your patient. Please feel free to contact me if you have any questions. Coding Level of Care Code Est Pt Level 4 (87792) Diagnoses Swelling of lower extremity M79.89 Essential hypertension I10 Atrial fibrillation I48.91
[2024-08-20 13:22] VITALS: BP 120/64; PULSE 60; BMI 27.3
--- OUTSIDE RECORDS SUMMARY | 2024-08-20 15:03 | XMS_ITS ---
Author Name [facility] [place] [facility] [place] [facility] [place] Address [address] [place] [id number] Care Team Providers Care Water Resource Engineer Name Role Phone SKYLAR GREGORY Primary [...] Witt's Name Patient's Relationship to Policy Witt [facility] (WNR) MEDICARE ADVANTAGE [place] PPO BLUE SAVER RX May 07, 2017 [id number] [phone] MILLIE AG SR PATIENT [facility] (WNR) MEDICARE ADVANTAGE MCR (WNR) May 07, 2017 [id number] MILLIE AG SR PATIENT Selected Encounter This section includes the information on record at [place] for the Encounter. 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 Date/Time Primary/Secondary Diagnosis Diagnosis Name Provider Source Dec 25, 2023 09:35 AM PRIMARY Puckering of macula, left eye YOLI [facility] Plan of Treatment: Future Appointments (+ 6 months) and Future Tests (+/- 45 days) The Plan of Treatment section includes future care activities for the patient [facility] [place] [facility] This section includes future appointments and future orders which are active, pending or scheduled. Future Appointments This section includes appointments that were scheduled to occur 6 months from the date of the Encounter, up to a maximum of 20 appointments. The data comes from all [place] treatment facilities. Appointment Date/Time Appointment Type Appointme nt Facility Name Jan 22, 2024 09:30 AM AMBULATORY - MEDICINE [facility] Feb 07, 2024 02:00 PM [facility] Feb 07, 2024 03:00 PM AMBULATORY - MEDICINE [facility] Apr 17, 2024 10:00 AM AMBULATORY - [facility]ICINE [facility] Jun 09, 2024 10:00 AM [facility] Social History: Smoking Status (Most current) and [...] 03, 2023 09:30 AM [facility] Tobacco Use History This section includes a history of the smoking, or tobacco-related health factors, that were collected on or before the date of the Encounter. The data comes from the [place] facility where the Encounter took place. Date/Time Smoking Status/Tobac co Use Comment Facility May 03, 2023 09:30 AM [place]-TOBACCO QUIT 15 YRS OR MORE [facility] Oct 26, 2021 10:00 AM [facility] Oct 26, 2021 10:00 AM [place]-TOBACCO QUIT 15 YRS OR MORE [facility] [place] [facility] Aug 19, 2020 08:30 AM VA-TOBACCO FORMER USER [facility] [place] [facility] Aug 19, 2020 08:30 AM VA-TOBACCO QUIT 15 YRS OR MORE [facility] [place] [facility] May 21, 2018 09:36 AM VA-TOBACCO FORMER USER [facility] [place] [facility] May 21, 2018 09:36 AM [place]-TOBACCO QUIT 15 YRS OR MORE [place] [facility] [place] [facility] May 21, 2018 08:51 AM VA-TOBACCO NEVER USED [place] [facility] [place] [facility] May 09, 2017 09:38 AM QUIT TOBACCO USE > 7 YEARS AGO quit 35 yrs ago [place] [facility] [place] [facility] May 09, 2016 09:45 AM LIFETIME NON-TOBACCO USER [place] [facility] [place] [facility] May 06, 2015 08:02 AM QUIT TOBACCO USE > 7 YEARS AGO pt states he stopped smoking 20 yrs ago [place] [facility] [place] [facility] Apr 05, 2009 02:04 PM QUIT TOBACCO USE > 7 YEARS AGO QUIT 15 YEARS AGO [place] [facility] [place] [facility] Encounter Notes: All associated encounter notes This section contains the clinical notes associated to the Encounter. Date/Time Encounter Note(s) Provider Source Dec 25, 2023 09:06 AM OPTOMETRY CONSULT: [facility] TITLE: CONSULT REPORT/OPTOMETRY OCT STANDARD TITLE: OPTOMETRY [...] Signed: 12/25/2023 10:53 /kaylynn/ YOLI SOSA OD JOB TRAINING SUPERVISOR Cosigned: 12/25/2023 11:15 12/25/2023 ADDENDUM STATUS: COMPLETED The optometry tech intern participated in this exam. I saw this in conjunction with the optometry student. The visual images were captured by the optometry health automotive drivability technician. Results of testing assessed by the student and reviewed by myself. 's history, complaints and student's findings and plan reviewed. I reviewed and agree with the stated findings, assessment and plan. I have added/edited the documentation to reflect my exam findings and changes to the assessment and plan. /kaylynn/ YOLI SOSA OD JOB TRAINING SUPERVISOR Signed: 12/25/2023 11:15 D[facility] [place] [facility]
--- OUTSIDE RECORDS SUMMARY | 2024-08-20 15:03 | XMS_ITS | Continuity of Care Document ---
Author Name [facility] Organization [facility] Care Team Providers Care Rail Track Layer Name Role Phone [facility] Unavailable Unavailable Problems Combined list of problems [...] Benign Prostatic Hypertrophy Without Outflow Obstruction (SCT [id number]) Active 05/07/19 19 Condition May 21, 2018 Entered By: MC DAN Comment: treated with finasteride [facility] Essential hypertension Active 05/07/19 09 Condition [facility] Hearing loss (SNOMED CT 70610797) Active 05/07/19 09 Condition [facility] HLD - Hyperlipidemia Active 05/07/19 09 Condition [facility] Hypothyroidism (SNOMED CT 16658333) Active 05/07/19 09 Condition [facility] Diabetes Mellitus Type 2 (SCT 69003719) Active Condition Apr 17, 2024 Entered By: SKYLAR GREGORY Comment: vet under care of community PCP/ Dr Sheldon Muniz- good glycemic control [facility] History of actinic keratosis Active Condition Feb 08, 2024 Entered By: SKYLAR GREGORY Comment: see tele derm-lesions on right side of face/ vet needs cryotx per derm [facility] Low Back Pain (SCT [id number]) Active Condition Oct 26, 2021 Entered By: [...] DAILY ORAL ACTIVE D'ALESSAN RUBENKERI Galindo [facility] BUMETANIDE 1MG TAB TAKE ONE TABLET BY MOUTH ONCE DAILY ORAL ACTIVE D'ALESSAN KERI MIRANDA 2023 [facility] CARBOXYMETH YLCELLULOSE NA 0.5% SOLN,OPH INSTILL 1 DROP INTO EACH EYE FOUR TIMES A DAY FOR DRY EYE OPHTHA LMIC ACTIVE 12/25/2024 [id number] 4 CHE SOSA EY J 2023 45 [facility] GLIPIZIDE 5MG TAB TAKE ONE-HALF TABLET BY MOUTH ORAL ACTIVE D'ALESSAN RUBENKERI HERMELINDO Josie 2023 [facility] LEVOTHYROXI NE NA 125MCG TAB (SYNTHROID) TAKE ONE TABLET BY MOUTH QD ORAL ACTIVE D'ALESSAN RUBENKERI HERMELINDO Josie 2023 [facility] LISINOPRIL 10MG TAB TAKE ONE TABLET BY MOUTH ONCE DAILY ORAL ACTIVE D'ALESSAN RUBENKERI Galindo 2023 [facility] PRAVASTATIN NA 40MG TAB TAKE ONE TABLET BY MOUTH AT BEDTIME ORAL ACTIVE PRASHANT DAN 2009 [facility] Immunizations Combined list of available immunizations from the Department of Defense and Veterans Affairs facilities. Immunization Series Date Given Administered By Site Reaction Lot Number CVX Code Drug Gas Manager Status Comments Source INFLUENZA, UNSPECIFIED FORMULATION 2023 88 complet ed HISTORICA L INFORMATI ON - SOURCE UNSPECIFI ED, [facility] INFLUENZA, UNSPECIFIED FORMULATION 2021 88 complet ed [facility] COVID-19 (MODERNA), MRNA, LNP-S, PF, 100 MCG OR 50 MCG DOSE 3 2020 207 complet ed MOD; [id number]; 2 [facility] COVID-19 (MODERNA), MRNA, LNP-S, PF, 100 MCG/0.5 ML DOSE 2 2020 207 complet ed MOD; [id number]; 1 [facility] COVID-19 (MODERNA), MRNA, LNP-S, PF, 100 MCG/0.5 ML DOSE 1 2020 207 complet ed MOD; [id number]; 1 [facility] [...] ed received in community flu clinic at [facility] [...] Disposition Source [facility] Outpatient Encounter [id number] 02/20 [facility] En[facility] [id number] 04/23 [facility] OFFICE O/P EST LOW 20-29 MIN [id number] Diagnos is: ICD-10- CM E11.22 Type 2 diabete s mellitu s w diabeti c chronic kidney disease Juan AGORDONAUDREY MURPHYSKYLAR 05/03 [facility] HEARING AID REPAIR/MOD IFYING [id number] Diagnos is: ICD-10- CM H90.3 Sensori neural hearing loss, bilater al SENIOR,JOHNSON OLE L 05/24 [facility] En[facility] [id number] 06/01 [facility] OFF[facility] O/P EST SF 10 MIN [id number] Diagnos is: ICD-10- CM E11.9 Type 2 diabete s mellitu s without complic ations Juan A MACHUCA AVID 06/06 [facility] En[facility] [id number] 09/24 [facility] En[facility] [id number] 09/24 [facility] En[facility] [id number] 10/22 [facility] Encounter [id number] Diagnos is: ICD-10- CM S46.911 A Strain unsp musc/fa sc/tend at shldr/u p arm, right arm, init CHASE,TRACI NECKTIE CENTRALIZING MACHINE OPERATOR 10/24 [facility] DETERMINE REFRACTIVE STATE [id number] Diagnos is: ICD-10- CM E11.9 Type 2 diabete s mellitu s without complic ations SOSA,LACE Y J 12/24 [facility] CPTR OPHTH DX IMG POST SEGMT [id number] Diagnos is: ICD-10- CM H35.372 Puckeri ng of macula, left eye SOSA,LACE Y J 12/24 [facility] Out[facility] Encounter [id number] 01/08 [facility] OFF/OP EST SEPTEMBER X REQ PHY/QHP [id number] Diagnos is: ICD-10- CM R21 Rash and other nonspec ific skin eruptio n TOOTIE REARDON H 01/21 [facility] UNLISTED SPEC DERM SVC/PX [id number] 1. Diagnos is: ICD-10- CM Z13.89 Encount er for screeni ng for other disorde r DARCIE HAIR ICA A 02/06 [facility] TRIM NAIL(S) [id number] 1. Diagnos is: ICD-10- CM E11.9 Type 2 diabete s mellitu s without complic ations VICENTE MANZANO 02/06 [facility] [place] Outpatient Encounter [id number] Diagnos is: ICD-10- CM L57.0 Actinic keratos is MARY ARIAS PH J 02/07 [facility] En[facility] [id number] 02/07 [facility] Outpatient Encounter [id number] 02/10 [facility] OFFICE O/P EST MOD 30 MIN [id number] Diagnos is: ICD-10- CM E11.9 Type 2 diabete s mellitu s without complic ations SKYLAR LEMUS 04/17 [facility] [place] [facility] TRIM NAIL(S) [id number] Diagnos is: ICD-10- CM E11.9 Type 2 diabete s mellitu s without complic ations JOSE JUANVICENTEELROY ALSTON 06/09 [facility] [place] [place] [facility] [place] OFFICE O/P NEW MOD 45 MIN [id number] Diagnos is: ICD-10- CM L57.0 Actinic keratos is TERESA ALBRIGHT 08/07 [facility] [place] [place] [facility] [place] [facility] HEARING AID REPAIR/MOD IFYING [id number] Diagnos is: ICD-10- CM Z46.1 Encount er for fitting and adjustm ent of hearing aid RAYSHAWN SANDHU 08/07 [facility] [place] [place] [facility] Social History Combined list of available smoking, tobacco, and other social history from Department of Defense and Veterans Affairs facilities. Social History Type Response Date Comment Source Tobacco smoking status AZIS VA-TOBACCO USE FORMER CIGARETTES 04/17/2024 [facility] [place] [facility] History of tobacco use VA-TOBACCO NEVER USED OTHER TYPE 04/17/2024 [facility] [place] [facility] History of tobacco use VA-TOBACCO QUIT 15 YRS OR MORE 05/03/2023 [place] [facility] [place] [facility] History of tobacco use VA-TOBACCO FORMER USER 10/26/2021 [place] [facility] [place] [facility] History of tobacco use [place] [facility]19[facility] History of tobacco use [place] FORMER USER 05/21/2018 [facility] of [facility] History of tobacco use QUIT TOBACCO [...]
--- OUTSIDE RECORDS SUMMARY | 2024-08-20 15:03 | XMS_ITS ---
Author Name [facility] [place] [facility] [place] Organization [facility] [place] Address [address] [place] [address] Care Team Providers Care Date Puller Name Role Phone SKYLAR GREGORY Primary Care [...] Name Patient's Relationship to Policy Witt [facility] (WNR) MEDICARE ADVANTAGE [place] PPO BLUE SAVER RX May 07, 2017 [id number] [phone] MILLIE AG SR PATIENT [facility] (WNR) MEDICARE ADVANTAGE MCR (WNR) May 07, 2017 [id number] [phone] MILLIE AG SR PATIENT Selected Encounter This section includes the information on record at [place] for the Encounter. Date/Time Encounter Type Encounter Description Reason Provider Source Dec 25, 2023 08:30 AM DETERMINE REFRACTIVE STATE OPTOMETRY ICD-10-CM E11.9 Type 2 diabetes mellitus without complications YOLI SOSA Encounter Template Text not used by VA Assessments - Encounter Diagnoses This section includes the primary and secondary diagnoses documented for the Encounter. Date/Time Primary/Secondary Diagnosis Diagnosis Name Provider Source Dec 25, 2023 09:34 AM PRIMARY Type 2 diabetes mellitus without complications YOLI SOSA [facility] [place] [facility] Dec 25, 2023 09:34 AM SECONDARY Dry eye syndrome of bilateral lacrimal glands YOLI SOSA [facility] [place] [facility] Dec 25, 2023 09:34 AM SECONDARY Presbyopia SOSA,YOLI Bailey [facility] Dec 25, 2023 09:34 AM SECONDARY Presence of intraocular lens SOSA,YOLI Bailey [facility] Dec 25, 2023 09:34 AM SECONDARY Puckering of macula, left eye SOSA,YOLI Bailey [facility] Dec 25, 2023 09:34 AM SECONDARY Unspecified retinal break, left eye SOSA,[facility]OLI [facility] Plan of Treatment: Future Appointments [...] 22, 2024 09:30 AM AMBULATORY - MEDICINE [place] C [facility] [place] [facility] Feb 07, 2024 02:00 PM AMBULATORY - NONE [place] [facility] [place] [facility] Feb 07, 2024 03:00 PM AMBULATORY - MEDICINE [place] C [facility] [place] [facility] Apr 17, 2024 10:00 AM AMBULATORY - MEDICINE [place] C [facility] [place] [facility] Jun 09, 2024 10:00 AM AMBULATORY - MEDICINE [facility] N[facility]L W[facility] Social History: Smoking Status (Most current) and Tobacco Use (All prior to encounter date) This section includes the most current, and the historical, smoking and tobacco- related health factors from the VA facility where the Encounter took place. Current Smoking Status This section includes the most current smoking, or tobacco-related health factor, from the [place] facility where the Encounter took place. Date/Time Current Smoking Status Comment Facil ity May 03, 2023 09:30 AM VA-TOBACCO FORMER USER [place] [facility] [place] [facility] Tobacco Use History This section includes a history of the smoking, or tobacco-related health factors, that were collected on or before the date of the Encounter. The data comes from the [place] facility where the Encounter took place. Date/Time Smoking Status/Tobac co Use Comment Facility May 03, 2023 09:30 AM VA-TOBACCO QUIT 15 YRS OR MORE [place] [facility] [place] [facility] Oct 26, 2021 10:00 AM VA-TOBACCO FORMER USER [place] [facility] [place] [facility] Oct 26, 2021 10:00 AM VA-TOBACCO QUIT 15 YRS OR MORE [place] [facility] [place] [facility] Aug 19, 2020 08:30 AM VA-TOBACCO FORMER USER [place] [facility] [place] [facility] Aug 19, 2020 08:30 AM VA-TOBACCO QUIT 15 YRS OR MORE [place] [facility] [place] [facility] May 21, 2018 09:36 AM VA-TOBACCO FORMER USER [place] [facility] [place] [facility] May 21, 2018 09:36 AM VA-TOBACCO QUIT 15 YRS OR MORE [place] [facility] [place] [facility] May 21, 2018 08:51 AM VA-TOBACCO NEVER USED [place] [facility] [place] [facility] May 09, 2017 09:38 AM QUIT TOBACCO USE > 7 YEARS AGO quit 35 yrs ago [place] [facility] [place] [facility] May 09, 2016 09:45 AM LIFETIME NON-TOBACCO USER [place] [facility] [place] [facility] May 06, 2015 08:02 AM QUIT TOBACCO USE > 7 YEARS AGO pt states he stopped smoking 20 yrs ago [facility] [place] [facility] Apr 05, 2009 02:04 PM QUIT TOBACCO USE > 7 YEARS AGO QUIT 15 YEARS AGO [place] [facility] [place] [facility] Encounter Notes: All associated encounter notes This section contains the clinical notes associated to the Encounter. Date/Time Encounter Note(s) Provider Source Dec 25, 2023 07:32 AM OPTOMETRY NOTE: LOCAL TITLE: OPTOMETRY NOTE STANDARD TITLE: OPTOMETRY NOTE DATE OF NOTE: DEC 25, 2023@07:32 ENTRY DATE: DEC 25, 2023@07:32:33 AUTHOR: DARCY SUHER: YOLI SOSA URGENCY: STATUS: COMPLETED OPTOMETRY NOTE Has ADDENDA Active problems - Computerized Problem List is the source for the followin. Numbness of hand 2. Low Back Pain (SCT 654043643) 3. Diabetes Mellitus Type 2 (SCT 51481990) 4. Microalbuminuria due to type 2 diabetes mellitus 5. Chronic kidney disease due to type 2 diabetes mellitus 6. Abnormal vision 7. Benign Prostatic Hypertrophy Without Outflow Obstruction (SCT 123288195) 8. Essential hypertension 9. Hypothyroidism (SNOMED CT 06172222) 10. Transient Ischemic Attack 11. HLD - Hyperlipidemia 12. Hearing loss (SNOMED CT 73139964) Active Outpatient Medications (including Supplies): Active Non-VA [...] denies flashes but notes a [place] in center of vision that is very [...] ago Current Rx with last BCVA: OD: +2.25-2.17y552 20/20+2 OS: +3.00-1.06z845 20/25-2 Add: +2.75 DVA ( )sc ( x )cc phoropter OD: 20/20 OS: 20/50+1 PH: 20/50+2 Pupils: PERRL (-)APD EOMs: SAFE OU, (-)Pain/Diplopia CVF (facial, peripheral): FTFC OU Subjective Refraction: OD: +2.25-2.62w543` 20/20 OS: +3.00-1.45m314 20/50+1 Add: +2.75 All the above performed [...] this VA (local) and dispensed from another [place] or [facility] facility (remote) as well as inpatient [...] Remote Allergy/ADR Data available for this patient [facility] [place] [facility] No Known Allergies Med. Reconciliation (Tool #1) INCLUDED IN THIS LIST: Alphabetical list of active outpatient prescriptions dispensed from this VA (local) and dispensed from another [place] or [facility]D facility (remote) as well as inpatient orders (local pending and active), local clinic medications, locally documented non-VA medications, and local prescriptions that have or been discontinued in the past 90 days. Non-VA Meds Last Documented On: Aug 19, 2020 NOTE The display of VA prescriptions dispensed from another [place] or [facility] facility (remote) is limited to active outpatient prescription entries matched to National Drug File at the originating site and may not include some items such as investigational drugs, compounds, etc. NOT INCLUDED IN THIS LIST: Medications self-entered by the patient into personal health records (i.e. [employer]) are NOT included in this list. Non-VA medications documented outside this VA, remote inpatient orders (regardless of status) and [...] TERMS AND POSSIBLE PATIENT ACTIONS INPT = [place] inpatient order IV = PR intravenous medication OUTPT = PR outpatient prescription PHARMACY POSSIBLE PATIENT TERMS EXPLANATION ACTIONS -------- - ACTIVE A prescription that can be If you have refills, filled at the local [place] pharmacy. you may request a refill of this prescription from your [place] pharmacy. CLINIC A medication you received during If you have questions a visit to a [place] clinic or about this medication emergency department. contact your [place] healthcare team. DISCONTINUED A prescription your provider has Contact your VA stopped. It is no longer healthcare team if you available to be sent to you or need more of this picked up at the [place] pharmacy medication. window. A prescription which is [...] the VA. Or, it may be an msbf-hfs-hmkoojh (OTC), herbal, dietary supplements or sample medication. [...] by () Medication Reconciliation List Printed for Ector at Exam () Optometry HT Please Print and Mail Copy of Medication Reconciliation List () AMSA Please Print and Mail Copy of Medication Reconciliation List /kaylynn/ DARCY SUH OPTOMETRY STUDENT Signed: 12/25/2023 11:09 /kaylynn/ YOLI SOSA OD MEDICAL BILL PROCESSOR Cosigned: 12/25/2023 11:15 12/25/2023 ADDENDUM STATUS: COMPLETED The optometry epidemiology internship participated in this exam, I saw this Ector in conjunction with the optometry student. The [...] in student note. /kaylynn/ YOLI SOSA OD MEDICAL BILL PROCESSOR Signed: 12/25/2023 11:15 DARCY SUH [facility]
--- OUTSIDE RECORDS SUMMARY | 2024-08-20 15:03 | XMS_ITS | Encounter Summary ---
Author Name [facility] [place] Organization [place] Address [address] [place] [address] Care Team Providers Care Sociocultural Anthropology Professor Name Role Phone SKYLAR GREGORY Primary Care [...] Witt's Name Patient's Relationship to Policy Witt [facility] (WNR) MEDICARE ADVANTAGE [place] PPO BLUE SAVER RX May 07, 2017 [id number] [phone] MILLIE AG SR PATIENT [facility] (WNR) MEDICARE ADVANTAGE MCR (WNR) May 07, 2017 [id number] MILLIE AG SR PATIENT Selected Encounter This section includes the information on record at [place] for the Encounter. Date/Time Encounter Type Encounter Description Reason Provider Source Apr 17, 2024 10:00 AM OFFICE O/P EST MOD 30 MIN PRIMARY CARE/MEDICINE ICD-10-CM E11.9 Type 2 diabetes mellitus without complications SKYLAR GREGORY [facility] Encounter Template Text not used by [place] Assessments - Encounter Diagnoses This section includes the primary and secondary diagnoses documented for the Encounter. Date/Time Primary/Secondary Diagnosis Diagnosis Name Provider Source Apr 17, 2024 12:34 PM PRIMARY Type 2 diabetes mellitus without complications BRI SKYLAR Galindo [facility] Apr 17, 2024 12:34 PM SECONDARY Chronic kidney disease, stage 3a BRI SKYLAR Galindo [place] [facility] Apr 17, 2024 12:34 PM SECONDARY Essential (primary) hypertension SKYLAR GREGORY Josie [facility] Apr 17, 2024 12:34 PM SECONDARY Hypothyroidism, unspecified BRI SKYLAR Galindo [facility] Apr 17, 2024 12:34 PM SECONDARY Type 2 diabetes mellitus w diabetic chronic kidney disease BRI SKYLAR Galindo [facility] Plan of Treatment: Future Appointments (+ 6 months) and Future Tests (+/- 45 days) The Plan of Treatment section includes future care activities for the patient from all [place] [facility]. This section includes future appointments and [...] 09, 2024 10:00 AM AMBULATORY - [facility]INE [facility] Aug 07, 2024 02:00 PM AMBULATORY [facility] Aug 07, 2024 02:30 PM AMBULATORY - [facility] Oct 08, 2024 10:00 AM AMBULATORY - MEDICINE [facility] Vital Signs: All taken on the encounter date This section contains inpatient and outpatient Vital Signs collected on the date of the Encounter. Date/Time Temperature Pulse Blood Pressure Respiratory Rate SP02 Pain Height Weight Body Mass Index Source Apr 17, 2024 10:06 AM 63 131/70 20 97 0 176 28 [facility] Social History: Smoking Status (Most current) [...] took place. Date/Time Current Smoking Status Comment [facility] Apr 17, 2024 10:00 AM VA-TOBACCO USE FOR JACINTO CIGARETTES [place] [facility] [place] [facility] Tobacco Use History This section includes a history of the smoking, or tobacco-related health factors, that were collected on or before the date of the Encounter. The data comes from the [place] facility where the Encounter took place. Date/Time Smoking Status/Tobac co Use Comment Facility Apr 17, 2024 10:00 AM VA-TOBACCO USE FORMER CIGARETTES [place] [facility] [facility] May 03, 2023 09:30 AM VA-TOBACCO FORMER USER [place] [facility] [place] [facility] May 03, 2023 09:30 AM VA-TOBACCO QUIT 15 YRS OR MORE [place] [facility] [place] [facility] Oct 26, 2021 10:00 AM VA-TOBACCO FORMER USER VA [facility] [place] [facility] Oct 26, 2021 10:00 AM VA-TOBACCO QUIT 15 YRS OR MORE [place] [facility] [place] [facility] Aug 19, 2020 08:30 AM VA-TOBACCO FORMER USER VA [facility] [place] [facility] Aug 19, 2020 08:30 AM VA-TOBACCO QUIT 15 YRS OR MORE [place] [facility] [place] [facility] May 21, 2018 09:36 AM VA-TOBACCO FORMER USER VA [facility] [place] [facility] May 21, 2018 09:36 AM VA-TOBACCO QUIT 15 YRS OR MORE [place] [facility] [place] [facility] May 21, 2018 08:51 AM VA-TOBACCO NEVER USED VA [facility] [place] [facility] May 09, 2017 09:38 AM QUIT TOBACCO USE > 7 YEARS AGO quit 35 yrs ago [facility] [place] [facility] May 09, 2016 09:45 AM LIFETIME NON-TOBACCO USER [facility] [place] [facility] May 06, 2015 08:02 AM QUIT TOBACCO USE > 7 YEARS AGO pt states he stopped smoking 20 yrs ago [facility] [place] [facility] Apr 05, 2009 02:04 PM QUIT TOBACCO USE > 7 YEARS AGO QUIT 15 YEARS AGO [place] [facility] [place] [facility] Encounter Notes: All associated encounter notes [...] due to responses to other questions. 5. [place] numb or detached from people, activities, or your surroundings? Response not required due to responses to other questions. 6. [place] guilty or unable to stop blaming yourself [...] Staff Nurse Signed: 04/17/2024 10:14 TSERING REARDON [place] [facility]L [facility] Apr 17, 2024 08:01 AM PHYSICIAN NOTE: LOCAL TITLE: MD NOTE STANDARD TITLE: PHYSICIAN NOTE DATE OF NOTE: APR 17, 2024@08:01 ENTRY DATE: APR 17, 2024@08:01:27 AUTHOR: JEFF GREGORY EXP COSIGNER: URGENCY: STATUS: COMPLETED HISTORY OF PRESENT ILLNESS: MILLIE AG, is a 89 yo WHITE MALE [place] who presents at the [place] at [facility]. multiple problems HPI. this vet presents to PCP clinic to review his medical concerns: 1. hx of diabetes/good glycemic control on low dose glipizide, vet prefers to remain under care of community PCP/Dr Sheldon Muniz in [place]/ no polyuria, no fevers. 2. CKD 3A- [...] of hand 3. Low Back Pain (SCT 875286934) 4. Diabetes Mellitus Type 2 (SCT 16244261) 5. Microalbuminuria due to type 2 diabetes mellitus 6. Chronic kidney disease due to type 2 diabetes mellitus 7. Abnormal vision 8. Benign Prostatic Hypertrophy Without Outflow Obstruction (SCT 617392602) 9. Essential hypertension 10. Hypothyroidism (SNOMED CT 44579943) 11. Transient Ischemic Attack 12. HLD - Hyperlipidemia 13. Hearing loss (SNOMED CT 12907587) HISTORY: PERIOD OF SERVICE - [facility] FROM Jun TO Apr COMBAT SERVICE INDICATED: [...] of active outpatient prescriptions dispensed from this [place] (local) and dispensed from another [place] or [facility] facility (remote) as well as [...] MD PHYSICIAN Signed: 04/17/2024 12:34 ANI GREGORY [facility]
--- OUTSIDE RECORDS SUMMARY | 2024-08-20 15:03 | XMS_ITS | Encounter Summary ---
Author Name [place] Address [address] [place] [address] Care Team Providers Care Arson Investigator Name Role Phone SKYLAR GREGORY Primary Care [...] Witt's Name Patient's Relationship to Policy Witt [facility] (WNR) MEDICARE ADVANTAGE [place] PPO BLUE SAVER RX May 07, 2017 [id number] KIMBERLI PHILLIPSMILLIE PATIENT BS [facility] (WNR) MEDICARE ADVANTAGE MCR (WNR) May 07, 2017 [id number] [phone] [id number] SRMILLIE PATIENT Selected Encounter This section includes the [...] 07:43 AM PRIMARY Actinic keratosis [facility] Plan of Treatment: Future Appointments (+ 6 months) and Future Tests (+/- 45 days) The Plan of Treatment section includes future care activities for the patient [facility] all [place] [facility]. This section includes future [...] - MEDICINE [place] [facility] [place] [facility] Jun 09, 2024 10:00 AM AMBULATORY - MEDICINE [place] C [facility] [facility] Aug 07, 2024 02:00 PM AMBULATORY - MEDICINE [place] C [facility] [facility] Aug 07, 2024 02:30 PM AMBULATORY - REHAB MEDICIN E [facility] Encounter Notes: All associated encounter [...] of the ear, left zygomatic cheek, left orthodoxy IMPRESSION BASED ON IMAGES AND INFORMATION REVIEWED: [...] PA-C Dermatology Signed: 02/08/2024 07:43 [facility]
--- OUTSIDE RECORDS SUMMARY | 2024-08-20 15:03 | XMS_ITS ---
Author Name [facility] [place] Address [address] [place] [id number] Care Team Providers Care Candy Wrapping Machine Operator Name Role Phone SKYLAR GREGORY Primary [...] Witt's Name Patient's Relationship to Policy Witt [facility] (WNR) MEDICARE ADVANTAGE [place] PPO BLUE SAVER RX May 07, 2017 [id number] MILLIE AG SR PATIENT [facility] (WNR) MEDICARE ADVANTAGE MCR (WNR) May 07, 2017 [id number] MILLIE AG SR PATIENT Selected Encounter This section includes the information on record at [place] for the Encounter. Date/Time Encounter Type Encounter Description Reason Provider Source Feb 07, 2024 02:00 PM UNLISTED SPEC DERM SVC/PX DERMATOLOGY ICD-10-CM Z13.89 Encounter for screening for other disorder RAISA HAIR [facility] Encounter Template Text not used by [facility] Assessments - Encounter Diagnoses This section includes the primary and secondary diagnoses documented for the Encounter. Date/Time Primary/Secondary Diagnosis Diagnosis Name Provider Source Feb 07, 2024 02:32 PM PRIMARY Encounter for screening for other disorder RAISA HAIR [facility] Plan of Treatment: Future Appointments (+ 6 months) and Future Tests (+/- 45 days) The Plan of Treatment section includes future care activities for the patient from all [place] [facility]. This section includes future appointments and future orders which are active, pending or scheduled. Future Appointments This section includes appointments that were scheduled to occur 6 months from the date of the Encounter, up to a maximum of 20 appointments. The data comes from all [place] treatment facilities. Appointment Date/Time Appointment Type Appointme nt Facility Name Apr 17, 2024 10:00 AM AMBULATORY - MEDICINE [facility] Jun 09, 2024 10:00 AM AMBULATORY - MEDICINE [facility] Aug 07, 2024 02:00 PM AMBULATORY - MEDICINE [facility] Aug 07, 2024 02:30 PM AMBULATORY - [facility]AB [facility] Social History: Smoking Status (Most [...] took place. Date/Time Current Smoking Status Comment [facility] May 03, 2023 09:30 AM [place]TO[place] FORMER USER [facility] Tobacco Use History This section includes a history of the smoking, or tobacco-related health factors, that were collected on or before the date of the Encounter. The data comes from the [place] facility where the Encounter took place. Date/Time Smoking Status/Tobac co Use Comment Facility May 03, 2023 09:30 AM [place]TO[place] QUIT 15 YRS OR MORE [facility] [place] [facility] Oct 26, 2021 10:00 AM [place]-TOBACCO FORMER USER [facility] [place] [facility] Oct 26, 2021 10:00 AM [place] QUIT 15 YRS OR MORE [facility] Aug 19, 2020 08:30 AM VA-TOBACCO FORMER USER [facility] [place] [facility] Aug 19, 2020 08:30 AM VA-TOBACCO QUIT 15 YRS OR MORE [facility] [place] [place] [facility] May 21, 2018 09:36 AM VA-TOBACCO FORMER USER [facility] [place] [facility] May 21, 2018 09:36 AM VA-TOBACCO QUIT 15 YRS OR MORE [place] [facility] [facility] May 21, 2018 08:51 AM VA-TOBACCO NEVER USED [facility] [place] [place] [facility] May 09, 2017 09:38 AM QUIT TOBACCO USE > 7 YEARS AGO quit 35 yrs ago [facility] [place] [place] [facility] May 09, 2016 09:45 AM LIFETIME NON-TOBACCO USER [facility] [place] [facility] May 06, 2015 08:02 AM QUIT TOBACCO USE > 7 YEARS AGO pt states he stopped smoking 20 yrs ago [place] [facility] [facility] Apr 05, 2009 02:04 PM QUIT TOBACCO USE > 7 YEARS AGO QUIT 15 YEARS AGO [place] [facility] [place] [facility] Encounter Notes: All associated encounter [...] on file. /kaylynn/ RAISA HAIR TELEHEALTH CLINICAL BRICK VENEER MAKER Signed: 02/21/2024 14:51 Receipt Acknowledged By: 02/21/2024 16:20 /kaylynn/ SKYLAR GREGORY MD PHYSICIAN --- Original Document --- 02/08/24 PATIENT NOTIFICATION TELEHEALTH RESULTS: Provided below are the results from pts telederm imaging reading. Ordering Provider is responsible to give pt the results and prescribe any treatments, recommendations or consult to dermatology for a face to face etc. REMOTE RESULTS JESUS Document from: [facility] Associated on: Feb 08, 2024@07:43:48 LOCAL TITLE: [...] REMOTE RESULTS /kaylynn/ RAISA HAIR TELEHEALTH CLINICAL BRICK VENEER MAKER Signed: 02/08/2024 08:15 Receipt Acknowledged By: 02/08/2024 08:21 /es/ SKYLAR GREGORY MD PHYSICIAN RAISA HAIR [place] [facility] [place] [facility] Feb 08, 2024 08:13 AM TELEHEALTH NOTE: [...] face etc. REMOTE RESULTS JESUS Document from: [facility] Associated on: Feb 08, 2024@07:43:48 LOCAL TITLE: [...] REMOTE RESULTS /kaylynn/ RAISA HAIR TELEHEALTH CLINICAL BRICK VENEER MAKER Signed: 02/08/2024 08:15 Receipt Acknowledged By: 02/08/2024 08:21 /kaylynn/ SKYLAR GREGORY MD PHYSICIAN 02/21/2024 ADDENDUM STATUS: COMPLETED Pt called asking to go over his results please call # on file. /kaylynn/ RAISA HAIR TELEHEALTH CLINICAL BRICK VENEER MAKER Signed: 02/21/2024 14:51 Receipt Acknowledged By: * AWAITING SIGNATURE * SKYLAR GREGORY JESSICA A [facility] [place] [facility] Feb 07, 2024 02:00 PM TELEHEALTH CONSULT [...] the name of the cream BIOPSY: No Cellar Packer's comments: Imaged per providers direction and facility protocol /kaylynn/ RAISA HAIR TELEHEALTH CLINICAL BRICK VENEER MAKER Signed: 02/07/2024 14:32 RAISA HARI [facility]
--- OUTSIDE RECORDS SUMMARY | 2024-08-20 15:03 | XMS_ITS | Clinical Summary ---
Author Organization [facility] Address [address] [facility] [address] [place] [address] Phone Care Team Providers Care Stonecutter Assistant Name Role Phone Patrick Muniz MD Primary [...] Due Date Last Done Comments Pneumococcal Vaccine: 50+ Years (2 of 2 - PPSV23) 07/04/2016 05/09/2016, 05/07/2003 Diabetes: Hemoglobin A1C 02/07/2023 Diabetes: Pedal Pulse Checked 02/07/2023 Diabetes: Sensory Foot Exam 02/07/2023 Diabetes: Visual Foot Exam 02/07/2023 Diabetes: Ophthalmology Exam 12/19/2023, 07/21/2022, 12/13/2021 Influenza Vaccine (Season Ended) 2025 01/05/2022, 01/06/2020, 02/05/2016, Additional history exists Hepatitis B Vaccine Aged Out No longe r eligible based on patient's age to complete this topic Insurance [facility] [place] [address] [address] Care Teams Stonecutter Assistant Relationship Specialty Start Date End Date Patrick Muniz MD [address] [place] [address] [place] [address] PCP - General Family Medicine 04/19/21
--- OUTSIDE RECORDS SUMMARY | 2024-08-20 15:04 | XMS_ITS ---
Author Name [facility] [place] [facility] [place] Address [address] [place] [id number] Care Team Providers Care Transcripter Name Role Phone SKYLAR GREGORY Primary Care [...] Name Patient's Relationship to Policy Witt [facility] (WNR) MEDICARE ADVANTAGE [place] PPO BLUE SAVER RX May 07, 2017 [id number] MILLIE AG SR PATIENT [facility] (WNR) MEDICARE ADVANTAGE MCR (WNR) May 07, 2017 [id number] [phone] MILLIE AG SR PATIENT Selected Encounter This section includes the information on record at [place] for the Encounter. Date/Time Encounter Type Encounter Description Reason Provider Source Aug 07, 2024 02:00 PM OFFICE O/P NEW MOD 45 MIN DERMATOLOGY ICD-10-CM L57.0 Actinic keratosis [facility]ILDE ALBRIGHT [facility] Encounter Template Text not used by [facility] Assessments - Encounter Diagnoses This section includes the primary and secondary diagnoses documented for the Encounter. Date/Time Primary/Secondary Diagnosis Diagnosis Name Provider Source Aug 07, 2024 02:30 PM PRIMARY Actinic keratosis [facility] [place] [facility] Aug 07, 2024 02:30 PM SECONDARY Other melanin hyperpigmentation [facility]L [place] [facility] Aug 07, 2024 02:30 PM SECONDARY Other seborrheic keratosis [facility] Plan of Treatment: Future Appointments (+ 6 months) and Future Tests (+/- 45 days) The Plan of Treatment section includes future care activities for the patient from all [place] [facility]. This section includes future appointments [...] 08, 2024 10:00 AM AMBULATORY - MEDICINE [facility] N[facility]L [facility] Oct 30, 2024 10:00 AM AMBULATORY - MEDICINE [facility] [place]L [place] [facility] Dec 30, 2024 08:30 AM AMBULATORY - MEDICINE [facility] Social History: Smoking Status (Most current) [...] took place. Date/Time Current Smoking Status Comment [facility] Apr 17, 2024 10:00 AM VA-TOBACCO USE FOR JACINTO CIGAR[facility]TES [facility] Tobacco Use History This section includes a history of the smoking, or tobacco-related health factors, that were collected on or before the date of the Encounter. The data comes from the [place] facility where the Encounter took place. Date/Time Smoking Status/Tobac co Use Comment [facility] Apr 17, 2024 10:00 AM VA-TOBACCO USE FOR[facility] CIGAR[facility]TES [facility] May 03, 2023 09:30 AM VA-TOBACCO FORMER [facility]ER [facility] May 03, 2023 09:30 AM VA-TOBACCO QUIT 15 YRS OR MORE [facility] [place] [place] [facility] Oct 26, 2021 10:00 AM VA-TOBACCO FORMER USER [facility] [place] [facility] Oct 26, 2021 10:00 AM VA-TOBACCO QUIT 15 YRS OR MORE [facility] [place] [facility] Aug 19, 2020 08:30 AM VA-TOBACCO FORMER USER [facility] [place] [facility] Aug 19, 2020 08:30 AM VA-TOBACCO QUIT 15 YRS OR MORE [facility] [place] [facility] May 21, 2018 09:36 AM VA-TOBACCO FORMER USER [facility] [place] [facility] May 21, 2018 09:36 AM VA-TOBACCO QUIT 15 YRS OR MORE [place] [facility] May 21, 2018 08:51 AM VA-TOBACCO NEVER USED [place] [facility] May 09, 2017 09:38 AM QUIT TOBACCO USE > 7 YEARS AGO quit 35 yrs ago [facility] [place] [facility] May 09, 2016 09:45 AM LIFETIME NON-TOBACCO USER [facility] [place] [facility] May 06, 2015 08:02 AM QUIT TOBACCO USE > 7 YEARS AGO pt states he stopped smoking 20 yrs ago [facility] [place] [facility] Apr 05, 2009 02:04 PM QUIT TOBACCO USE > 7 YEARS AGO QUIT 15 YEARS AGO [place] [facility] Encounter Notes: All associated encounter notes This section contains the clinical notes associated to the Encounter. Date/Time Encounter Note(s) Provider Source Aug 07, 2024 02:05 PM DERMATOLOGY CONSULT: [facility] TITLE: CONSULT REPORT/DERMATOLOGY STANDARD TITLE: DERMATOLOGY CONSULT DATE OF NOTE: AUG 07, 2024@14:05 ENTRY DATE: AUG 07, 2024@14:05:39 AUTHOR: TERESA ALBRIGHT EXP COSIGNER: URGENCY: STATUS: COMPLETED AUG 07, 2024 MILLIE AG Apr 89 PATIENT PHONE - Patient here for: NEW CONSULT CHIEF COMPLAINT: Actinic Keratosis HPI: presents s/p TeleDerm 02/2024. Reviewed images and report; AKs - cryo advised. denies any other new/changing/bleeding/non-heali ng lesions. Reviewed records in [facility] and Remote [facility] (all available). REVIEW [...] zygoma, R lateral zygoma, R lateral cheek - educated on relationship to squamous cell carcinoma. -Treatment options discussed. -Liquid nitrogen cryotherapy performed as a destructive method. -Verbal consent given. -Liquid nitrogen (2 cycles x 5-8sec) x #4 lesions performed. -Side effects including but not limited to redness, crusting, swelling, blistering, hypopigmentation and scarring discussed. -Photoprotection discussed. #Seborrheic Keratoses: -The was educated regarding the benign nature, but [...] patient, who consented to treatment plan. * [place] consented to photography for documentation if indicated. [...] Remote Allergy/ADR Data available for this patient [place] [facility] No Known Allergies Med Recon NoGlossary (Tool [...] the patient into personal health records (i.e. [email or web address]) are NOT included in this list. Non-VA medications documented outside this [place], remote inpatient orders (regardless of status) and [...] TIMES A DAY FOR DRY EYE Rx# [id number] Last Released: 01/01/24 Qty/Days Supply: Rx Expiration [...] BEDTIME Medication prescribed by Non-VA provider. SUPPLIES /kaylynn/ TERESA ALBRIGHT DNP, TIRE BUILDER OPERATOR-C NURSE PRACTITIONER Signed: 08/07/2024 14:29 TERESA ALBRIGHT CN[facility]L [facility]
== END 2024-08-20 13:52 | disposition home or self-care (01) ==
LOC: HO.HCS 12:43
PROVIDERS: PCP Family Medicine; Visit Provider Internal Medicine Cardiovascular Disease
DX: M79.89 Other specified soft tissue disorders (principal); I10 Essential (primary) hypertension; I48.91 Unspecified atrial fibrillation
CPT/HCPCS: 99214

== ENCOUNTER 2024-09-02 07:57 | Outpatient (AMB) | payer BC, SELFPAY ==
--- OUTSIDE RECORDS SUMMARY | 2024-09-02 08:00 | XMS_ITS | Clinical Summary ---
Author Organization [facility] Address [address] [facility] [address] [place] [address] Phone Care Team Providers Care Automobile Travel Club Counselor Name Role Phone Patrick Muniz MD Primary [...] patient's age to complete this topic Insurance [facility] [place] [address] [address] Care Teams Automobile Travel Club Counselor Relationship Specialty Start Date End Date Patrick Muniz MD [address] [place] [address] [place] [id number] PCP - General Family Medicine 04/19/21
--- OUTSIDE RECORDS SUMMARY | 2024-09-02 08:00 | XMS_ITS | Continuity of Care Document ---
Author Name [facility] Organization [facility] Care Team Providers Care Char Filter Tank Tender Name Role Phone DOD-[facility] Unavailable Unavailable Problems Combined list of problems [...] Benign Prostatic Hypertrophy Without Outflow Obstruction (SCT 775990163) Active 05/07/19 19 Condition May 21, 2018 Entered By: MC DAN Comment: treated with finasteride [facility] Essential hypertension Active 05/07/19 09 Condition [facility] Hearing loss (SNOMED CT 03703499) Active 05/07/19 09 Condition [facility] HLD - Hyperlipidemia Active 05/07/19 09 Condition [facility] Hypothyroidism (SNOMED CT 30907512) Active 05/07/19 09 Condition [facility] Diabetes Mellitus Type 2 (SCT 94120401) Active Condition Apr 17, 2024 Entered By: SKYLAR GREGORY Comment: vet under care of community PCP/ Dr Sheldon Muniz- good glycemic control [facility] History of actinic keratosis Active Condition Feb 08, 2024 Entered By: SKYLAR GREGORY Comment: see tele derm-lesions on right side of face/ vet needs cryotx per derm [facility] Low Back Pain (SCT 979336424) Active Condition Oct 26, 2021 Entered By: [...] DAILY ORAL ACTIVE D'ALESSAN RUBENKERI Galindo 2023 [facility] BUMETANIDE 1MG TAB TAKE ONE TABLET BY MOUTH ONCE DAILY ORAL ACTIVE D'ALESSAN KERI MIRANDA 2023 [facility] CARBOXYMETH YLCELLULOSE NA 0.5% SOLN,OPH INSTILL 1 DROP INTO EACH EYE FOUR TIMES A DAY FOR DRY EYE OPHTHA LMIC ACTIVE 12/25/2024 [id number] 4 CHE SOSA EY J 2023 45 [facility] GLIPIZIDE 5MG TAB TAKE ONE-HALF TABLET BY MOUTH ORAL ACTIVE D'ALESSAN RUBENKERI HERMELINDO Josie 2023 [facility] LEVOTHYROXI NE NA 125MCG TAB (SYNTHROID) TAKE ONE TABLET BY MOUTH QD ORAL ACTIVE D'ALESSAN RUBENKERI HERMELINDO Josie 2023 [facility] LISINOPRIL 10MG TAB TAKE ONE TABLET BY MOUTH ONCE DAILY ORAL ACTIVE D'ALESSAN RUBENKERI Galindo 2023 [facility] PRAVASTATIN NA 40MG TAB TAKE ONE TABLET BY MOUTH AT BEDTIME ORAL ACTIVE PRASHANT DAN 2009 [facility] Immunizations Combined list of available immunizations from the Department of Defense and Veterans Affairs facilities. Immunization Series Date Given Administered By Site Reaction Lot Number CVX Code Drug Cloth Grader Supervisor Status Comments Source INFLUENZA, UNSPECIFIED FORMULATION 2023 88 complet ed HISTORICA L INFORMATI ON - SOURCE UNSPECIFI ED, [facility] INFLUENZA, UNSPECIFIED FORMULATION 2021 88 complet ed [facility] COVID-19 (MODERNA), MRNA, LNP-S, PF, 100 MCG OR 50 MCG DOSE 3 2020 207 complet ed MOD; [id number]; 2 [facility] COVID-19 (MODERNA), MRNA, LNP-S, PF, 100 MCG/0.5 ML DOSE 2 2020 207 complet ed MOD; [id number]; 1 [facility] COVID-19 (MODERNA), MRNA, LNP-S, PF, 100 MCG/0.5 ML DOSE 1 2020 207 complet ed MOD; [id number]; 1 [facility] [...] ed received in community flu clinic at [facility] FLU,3 [...] Disposition Source [facility] Outpatient Encounter [id number] 02/20 [facility] En[facility] [id number] 04/23 [facility] OFFICE O/P EST LOW 20-29 MIN [id number] Diagnos is: ICD-10- CM E11.22 Type 2 diabete s mellitu s w diabeti c chronic kidney disease Juan AGORDONAUDREY MURPHYSKYLAR 05/03 [facility] HEARING AID REPAIR/MOD IFYING [id number] Diagnos is: ICD-10- CM H90.3 Sensori neural hearing loss, bilater al SENIOR,JOHNSON OLE L 05/24 [facility] En[facility] [id number] 06/01 [facility] OFFICE O/P EST SF 10 MIN [id number] Diagnos is: ICD-10- CM E11.9 Type 2 diabete s mellitu s without complic ations Juan A MACHUCA AVID 06/06 [facility] En[facility] [id number] 09/24 [facility] Encounter [id number] 09/24 [facility] Encounter [id number] 10/22 [facility] Encounter [id number] Diagnos is: ICD-10- CM S46.911 A Strain unsp musc/fa sc/tend at shldr/u p arm, right arm, init CHASE,TRACI AUDITING CONTROL CLERK 10/24 [facility] DETERMINE REFRACTIVE STATE [id number] Diagnos is: ICD-10- CM E11.9 Type 2 diabete s mellitu s without complic ations SOSA,LACE Y J 12/24 [facility] CPTR OPHTH DX IMG POST SEGMT [id number] Diagnos is: ICD-10- CM 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 Diagnos is: ICD-10- CM Z13.89 Encount er for screeni ng for other disorde r DARCIE HAIR ICA A 02/06 [facility] TRIM NAIL(S) [id number] 1. Diagnos is: ICD-10- CM E11.9 Type 2 diabete s mellitu s without complic ations VICENTE MANZANO 02/06 [facility] Outpatient Encounter [id number] Diagnos is: ICD-10- CM L57.0 Actinic keratos is MARY ARIAS PH J 02/07 [facility] Out[facility] En[facility] [id number] 02/07 [facility] Outpatient Encounter [id number] 02/10 [facility] OFFICE O/P EST MOD 30 MIN [id number] Diagnos is: ICD-10- CM E11.9 Type 2 diabete s mellitu s without complic ations SKYLAR LEMUS 04/17 [facility] TRIM NAIL(S) [id number] Diagnos is: ICD-10- CM E11.9 Type 2 diabete s mellitu s without complic ations JOSE JUANVICENTEELROY ALSTON 06/09 [facility] OFFICE O/P NEW MOD 45 MIN [id number] Diagnos is: ICD-10- CM L57.0 Actinic keratos is TERESA ALBRIGHT 08/07 [facility] HEARING AID REPAIR/MOD IFYING [id number] Diagnos is: ICD-10- CM Z46.1 Encount er for fitting and adjustm ent of hearing aid RAYSHAWN SANDHU 08/07 [facility] Social History Combined list of available smoking, tobacco, and other social history from Department of Defense and Veterans Affairs facilities. Social History Type Response Date Comment Source Tobacco smoking status SCIS VA-TOBACCO USE FORMER CIGARETTES 04/17/2024 [facility] History of tobacco use VA-TOBACCO NEVER USED OTHER TYPE 04/17/2024 [facility] History of tobacco use VA-TOBACCO QUIT 15 YRS OR MORE 05/03/2023 [facility] History of tobacco use VA-TOBACCO FORMER USER 10/26/2021 [facility] History of tobacco use [facility]-TOBACCO FORMER USER 08/19/2020 [facility] History [facility] tobacco use [facility]-TOBACCO FORMER USER 05/21/2018 [facility] History of tobacco use QUIT TOBACCO USE > 7 YEARS AGO 05/09/2017 quit 35 yrs ago [facility] History of tobacco use LIFETIME NON-TOBACCO USER 05/09/2016 [facility] History of tobacco use QUIT TOBACCO USE > 7 YEARS AGO 05/06/2015 pt states he stopped smoking 20 yrs ago [facility] History of tobacco use QUIT TOBACCO USE > 7 YEARS AGO 04/05/2009 QUIT 15 YEARS AGO [facility] Plan of Care List of future care activities from Department of Veterans Affairs facilities. Additional future care activities may be listed in the Assessment and Plan section. Date/Time Care Activity Care Activity Detail Facili ty 10/08/2024 AMBULATORY - MEDICINE AMBULATORY - MEDICI [place] [facility]
[2024-09-02 08:09] LABS: Prothrombin Time Whole Bld POC 36.5 sec (11.1-13.5)
--- NOTE | 2024-09-02 08:18 | MHC.OFFVISCO ---
Intake Intake Visit Reasons: Anticoagulation Allergies hydralazine [Hydralazine] Allergy (Unknown, Verified 09/02/24 08:02) SEVERE HEADACHE Medication List - Last Reconciled 09/02/24 by Elisa Jon RN amlodipine 2.5 mg PO DAILY 90 days ascorbic acid (vitamin C) PO DAILY blood sugar diagnostic As directed blood sugar diagnostic (OneTouch Ultra Test strips) 1 strip miscellaneous BID 1 month bumetanide 1 mg PO Q OTHER DAY 90 days glipizide ER 2.5 mg PO DAILY 90 days lancets One Touch Ultra Test Strips As directed to test blood sugar twice a day. Ninety day supply lancets (OneTouch UltraSoft 2 Lancet) As directed levothyroxine 125 mcg PO DAILY lisinopril 5 mg PO DAILY 90 days meclizine 12.5 mg PO BID-QID PRN multivitamin (Daily Multi-Vitamin) PO pravastatin 40 mg PO DAILY tadalafil 5 mg PO DAILY 90 days tamsulosin 0.4 mg PO BEDTIME 90 days warfarin 4 mg See Protocol PO DAILY Nursing Note INR: 3.0 in therapeutic range Medications and supplements reviewed No changes in health, diet, medications, or supplements, Denies any signs and symptoms of bleeding or bruising or clotting. 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
== END 2024-09-02 08:20 | disposition home or self-care (01) ==
LOC: HO.ACS 07:57
PROVIDERS: PCP Family Medicine; Visit Provider Internal Medicine Medical Oncology
DX: Z79.01 Long term (current) use of anticoagulants (principal)

== ENCOUNTER → 2024-09-02 07:57 | Outpatient (BNVA) | payer BC, SELFPAY | PROVIDERS: PCP Family Medicine; Visit Provider Internal Medicine Medical Oncology | DX: I48.0 Paroxysmal atrial fibrillation (principal); Z51.81 Encounter for therapeutic drug level monitoring; Z79.01 Long term (current) use of anticoagulants | CPT/HCPCS: 85610; 99211 ==

== ENCOUNTER 2024-09-23 07:48 | Outpatient (AMB) | payer BC, SELFPAY ==
--- OUTSIDE RECORDS SUMMARY | 2024-09-23 07:50 | XMS_ITS | Clinical Summary ---
Author Organization [facility] Address [address] [facility] [address] [place] [address] Phone Care Team Providers Care Helicopter Dispatcher Name Role Phone Patrick Muniz MD Primary Care Provider [phone] Allergies Active Allergy Reactions Criticality Noted Date [...] Vaccine: 50+ Years (2 of 2 - PPSV23, PCV20, or PCV21) 07/04/2016 05/09/2016, 05/07/2003 Diabetes: Hemoglobin A1C 02/07/2023 Diabetes: Ophthalmology Exam 02/07/2023 Diabetes: Pedal Pulse Checked 02/07/2023 Diabetes: Sensory Foot Exam 02/07/2023 Diabetes: Visual Foot Exam 02/07/2023 Influenza Vaccine Completed 01/09/2024, , 01/06/2020, Additional history exists Hepatitis B Vaccine Aged Out No longe r eligible based on patient's age to complete this topic Insurance [place] [address] [facility] Care Teams Helicopter Dispatcher Relationship Specialty Start Date End Date Patrick Muniz MD [address] [facility] [address] [place] [id number] PCP - General Family Medicine 04/19/21
--- OUTSIDE RECORDS SUMMARY | 2024-09-23 07:50 | XMS_ITS | Continuity of Care Document ---
Author Name [facility] Organization [facility] Care Team Providers Care Golf Manager Name Role Phone DOD-DE Unavailable Unavailable Problems Combined list of problems [...] Benign Prostatic Hypertrophy Without Outflow Obstruction (SCT [id number]) Active 05/07/19 19 Condition May 21, 2018 Entered By: MC DAN Comment: treated with finasteride [facility] Essential hypertension Active 05/07/19 09 Condition [facility] Hearing loss (SNOMED CT 16463995) Active 05/07/19 09 Condition [facility] HLD - Hyperlipidemia Active 05/07/19 09 Condition [facility] Hypothyroidism (SNOMED CT 20318565) Active 05/07/19 09 Condition [facility] Diabetes Mellitus Type 2 (SCT 77091108) Active Condition Apr 17, 2024 Entered By: SKYLAR GREGORY Comment: vet under care of community PCP/ Dr Sheldon Muniz- good glycemic control [facility] History of actinic keratosis Active Condition Feb 08, 2024 Entered By: SKYLAR GREGORY Comment: see tele derm-lesions on right side of face/ vet needs cryotx per derm [facility] Low Back Pain (SCT 687692576) Active Condition Oct 26, 2021 Entered By: [...] DAILY ORAL ACTIVE D'ALESSAN RUBENKERI Galindo 2023 [facility] BUMETANIDE 1MG TAB TAKE ONE TABLET BY MOUTH ONCE DAILY ORAL ACTIVE D'ALESSAN KERI MIRANDA 2023 [facility] CARBOXYMETH YLCELLULOSE NA 0.5% SOLN,OPH INSTILL 1 DROP INTO EACH EYE FOUR TIMES A DAY FOR DRY EYE OPHTHA LMIC ACTIVE 12/25/2024 [id number] 4 CHE SOSA EY J 2023 45 [facility] GLIPIZIDE 5MG TAB TAKE ONE-HALF TABLET BY MOUTH ORAL ACTIVE D'ALESSAN RUBENKERI HERMELINDO Josie 2023 [facility] LEVOTHYROXI NE NA 125MCG TAB (SYNTHROID) TAKE ONE TABLET BY MOUTH QD ORAL ACTIVE D'ALESSAN RUBENKERI HERMELINDO Josie 2023 [facility] LISINOPRIL 10MG TAB TAKE ONE TABLET BY MOUTH ONCE DAILY ORAL ACTIVE D'ALESSAN RUBENKERI Galindo 2023 [facility] PRAVASTATIN NA 40MG TAB TAKE ONE TABLET BY MOUTH AT BEDTIME ORAL ACTIVE PRASHANT DAN 2009 [facility] Immunizations Combined list of available immunizations from the Department of Defense and Veterans Affairs facilities. Immunization Series Date Given Administered By Site Reaction Lot Number CVX Code Drug Surface Logging Systems Logger Status Comments Source INFLUENZA, UNSPECIFIED FORMULATION 2023 88 complet ed HISTORICA L INFORMATI ON - SOURCE UNSPECIFI ED, [facility] INFLUENZA, UNSPECIFIED FORMULATION 2021 88 complet ed [facility] COVID-19 (MODERNA), MRNA, LNP-S, PF, 100 MCG OR 50 MCG DOSE 3 2020 207 complet ed MOD; [id number]; 2 [facility] COVID-19 (MODERNA), MRNA, LNP-S, PF, 100 MCG/0.5 ML DOSE 2 2020 207 complet ed MOD; [id number]; 1 [facility] COVID-19 (MODERNA), MRNA, LNP-S, PF, 100 MCG/0.5 ML DOSE 1 2020 207 complet ed MOD; [id number]; 1 [facility] [...] ed received in community flu clinic [facility] [...] Source [facility] Outpatient Encounter [id number] 04/23 [facility] OFFICE O/P EST LOW 20-29 MIN [id number] Diagnos is: ICD-10- CM E11.22 Type 2 diabete s mellitu s w diabeti c chronic kidney disease SKYLAR LEMUS 05/03 [facility] HEARING AID REPAIR/MOD IFYING [id number] Diagnos is: ICD-10- CM H90.3 Sensori neural hearing loss, bilater al ,JOHNSON OLE L 05/24 [facility] En[facility] [id number] 06/01 [facility] OFFICE O/P EST SF 10 MIN [id number] Diagnos is: ICD-10- CM E11.9 Type 2 diabete s mellitu s without complic ations Juan A MACHUCA 06/06 [facility] En[facility] [id number] 09/24 [facility] En[facility] [id number] 09/24 [facility] Encounter [id number] 10/22 [facility] Out[facility] Encounter [id number] Diagnos is: ICD-10- CM S46.911 A Strain unsp musc/fa sc/tend at shldr/u p arm, right arm, init CHASE,TRACI YOKER 10/24 [facility] DETERMINE REFRACTIVE STATE [id number] Diagnos is: ICD-10- CM E11.9 Type 2 diabete s mellitu s without complic ations JACK SOSA 12/24 [facility] CPTR OPHTH DX IMG POST SEGMT [id number] Diagnos is: ICD-10- CM 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 Diagnos is: ICD-10- CM Z13.89 Encount er for screeni ng for other disorde r DARCIE HAIR ICA A 02/06 [facility] TRIM NAIL(S) [id number] 1. Diagnos is: ICD-10- CM E11.9 Type 2 diabete s mellitu s without complic ations VICENTE MANZANO 02/06 [facility] Outpatient Encounter [id number] Diagnos is: ICD-10- CM L57.0 Actinic keratos is MARY ARIAS PH J 02/07 [facility] [id number] 1.02/07 [facility] En[facility] [id number] 02/10 [facility] OFFICE O/P EST MOD 30 MIN [id number] Diagnos is: ICD-10- CM E11.9 Type 2 diabete s mellitu s without complic ations DKristopherTALAT MURPHYSKYLAR 04/17 [facility] TRIM NAIL(S) [id number] Diagnos is: ICD-10- CM E11.9 Type 2 diabete s mellitu s without complic ations VICENTE MANZANO GAMALIEL 06/09 [facility] OFFICE O/P NEW MOD 45 MIN [id number] Diagnos is: ICD-10- CM L57.0 Actinic keratos is TERESA ALBRIGHT 08/07 [facility] HEARING AID REPAIR/MOD IFYING [id number] Diagnos is: ICD-10- CM Z46.1 Encount er for fitting and adjustm ent of hearing aid RAYSHAWN SANDHU 08/07 [facility] Social History Combined list of available smoking, tobacco, and other social history from Department of Defense and Veterans Affairs facilities. Social History Type Response Date Comment Source Tobacco smoking status CAIS VA-TOBACCO USE FORMER CIGARETTES 04/17/2024 [facility] tobacco use VA-TOBACCO FORMER USER 05/21/2018 [facility] History of tobacco use DE-TOBACCO NEVER USED 05/21/2018 [facility] History of tobacco use QUIT TOBACCO USE > 7 YEARS AGO 05/09/2017 quit 35 yrs ago [facility] History of tobacco use LIFETIME NON-TOBACCO USER 05/09/2016 [facility] History of tobacco use QUIT TOBACCO USE > 7 YEARS AGO 05/06/2015 pt states he stopped smoking 20 yrs ago [facility] History of tobacco use QUIT TOBACCO USE > 7 YEARS AGO 04/05/2009 QUIT 15 YEARS AGO [facility] Plan of Care List of future care activities from Department of [facility] Affairs facilities. Additional future care activities may be listed in the Assessment and Plan section. Date/Time Care Activity Care Activity Detail Facili ty 10/08/2024 AMBULATORY - MEDICINE AMBULATORY - MEDICI [facility]
--- NOTE | 2024-09-23 08:03 | MHC.OFFVISCO ---
Intake Intake Visit Reasons: Anticoagulation Allergies hydralazine [Hydralazine] Allergy (Unknown, Verified 09/23/24 07:53) SEVERE HEADACHE Medication List - Last Reconciled 09/23/24 by Elisa Jon RN amlodipine 2.5 mg PO DAILY 90 days ascorbic acid (vitamin C) PO DAILY blood sugar diagnostic As directed blood sugar diagnostic (OneTouch Ultra Test strips) 1 strip miscellaneous BID 1 month bumetanide 1 mg PO Q OTHER DAY 90 days glipizide ER 2.5 mg PO DAILY 90 days lancets One Touch Ultra Test Strips As directed to test blood sugar twice a day. Ninety day supply lancets (OneTouch UltraSoft 2 Lancet) As directed levothyroxine 125 mcg PO DAILY lisinopril 5 mg PO DAILY 90 days meclizine 12.5 mg PO BID-QID PRN 15 days multivitamin (Daily Multi-Vitamin) PO pravastatin 40 mg PO DAILY tadalafil 5 mg PO DAILY 90 days tamsulosin 0.4 mg PO BEDTIME 90 days warfarin 4 mg See Protocol PO DAILY Nursing Note INR: 3.1 almost therapeutic range Medications and supplements reviewed c/o swollen lymph nodes in his next - he does not have tonsils-REMOVED age 29, no fever, they are palpable - will send msg to PCP pt due for annual labs. Denies any signs and symptoms of bleeding or bruising or clotting. Bleeding, bruising, clotting discussed Nutritional guidance given Dose: 2mg x 1 cristiano/ 4mg x 6 days F/U INR: 3 weeks Patient verbalizes understanding of instructions given Anti-Coag Initial Assessment Social Hx Patient Tobacco Use Status: Former Tobacco user alcohol intake: former Alcohol intake frequency: does not drink Coding Level of Care Code Est Patient Level 1 Diagnoses Current use of anticoagulant therapy Z79.01 Results AMB INR Fingerstick AMB INR Fingerstick 3.1 Last Edit by Elisa Jon RN on 09/23/24 08:02 manual entry Assessment & Plan Assessment & Plan (1) Current use of anticoagulant therapy: Comment: critical high INR Code(s): Z79.01 - senior living (current) use of 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
[2024-09-23 08:09] LABS: Prothrombin Time Whole Bld POC 37.4 sec (11.1-13.5); ~PT, ~INR - Anti Coag Clinic 3.1 (0.9-1.1)
== END 2024-09-23 08:12 | disposition home or self-care (01) ==
LOC: HO.ACS 07:48
PROVIDERS: PCP Family Medicine; Visit Provider Internal Medicine Medical Oncology
DX: Z79.01 Long term (current) use of anticoagulants (principal)

== ENCOUNTER → 2024-09-23 07:48 | Outpatient (BNVA) | payer BC, SELFPAY | PROVIDERS: PCP Family Medicine; Visit Provider Internal Medicine Medical Oncology | DX: I48.0 Paroxysmal atrial fibrillation (principal); Z51.81 Encounter for therapeutic drug level monitoring; Z79.01 Long term (current) use of anticoagulants | CPT/HCPCS: 85610; 99211 ==

== ENCOUNTER 2024-10-13 08:24 | Inpatient (IN) | payer MEDICARE, SELFPAY ==
--- NOTE | ~2024-10-13 | XR_ITS ---
EXAMINATION: XR CHEST CLINICAL INFORMATION: dyspnea COMPARISON: None available. TECHNIQUE: 2 views of the chest were obtained. FINDINGS: The cardiac, hilar, and mediastinal contours are normal. Stable calcified lymph nodes in the left hilum. Aortic mural calcifications. Significantly elevated right hemidiaphragm, stable. Calcified granuloma in the left upper lung. Patchy scarring right upper lobe abutting the minor fissure. No effusions identified. No consolidative opacities. Minimal subpleural left base opacity, similar to prior exams, likely chronic subpleural scarring. There is no pneumothorax or pleural effusion. There is no focal osseous or soft tissue abnormality. XR/XR chest 2V IMPRESSION: No active disease. Stable chronic changes as discussed. Electronically signed by: Williams Copeland MD 10/13/2024 09:14 AM EDT
--- NOTE | 2024-10-13 08:35 | ED.GENADULT ---
HPI - General Adult General Chief complaint: Dyspnea Stated complaint: Short Breath, Stones in throat? Time Seen by Provider: 10/13/24 08:34 Source: patient, RN notes reviewed and old records reviewed Mode of arrival: ambulatory Limitations: no limitations History of Present Illness ED Provider: Ovidio HPI narrative: Patient is an 89-year-old male with history of T2 DM, CAD, aortic stenosis, AFib on warfarin, HTN presenting to the emergency department with complaint of dyspnea for the past few days. Describes as intermittent but states was worst last night, almost called 911 9 different times. Denies chest pain or palpitations. History of sialadenitis, states feels swelling to bilat salivary glands, worse on right, has been massaging and applying warm compresses, feels this is contributing to the sensation of dyspnea. MD complaint: dyspnea Onset (ago): day(s) Related Data Home Medications ?Medication ?Instructions ?Recorded ?Confirmed blood sugar diagnostic #10 ea 02/24/20 09/23/24 lancets 30 gauge (OneTouch #100 ea 06/07/23 09/23/24 UltraSoft 2 Lancet) multivitamin [Daily Multi-Vitamin] PO 02/08/24 09/23/24 ascorbic acid (vitamin C) PO DAILY 04/16/24 09/23/24 Previous Rx's ?Medication ?Instructions ?Recorded blood sugar diagnostic (OneTouch 1 strip miscellaneous BID for 11/05/23 Ultra Test strips) diabetes mellitus 1 month #200 ea lancets #200 ea 11/20/23 glipizide 2.5 mg tablet, extended 2.5 mg PO DAILY 90 days #90 tabs 01/23/24 release 24 hr tadalafil 5 mg tablet 5 mg PO DAILY sexual activity 90 06/10/24 days #90 tabs tamsulosin 0.4 mg capsule 0.4 mg PO BEDTIME 90 days #90 caps 06/10/24 amlodipine 2.5 mg tablet 2.5 mg PO DAILY 90 days #90 tabs 07/01/24 lisinopril 5 mg tablet 5 mg PO DAILY 90 days #90 tabs 07/11/24 warfarin 2 mg tablet 4 mg PO DAILY #60 tabs 07/20/24 bumetanide 1 mg tablet 1 mg PO Q OTHER DAY 90 days #45 08/08/24 tabs meclizine 12.5 mg tablet 12.5 mg PO BID-QID PRN dizziness 09/04/24 15 days #30 tabs pravastatin 40 mg tablet 40 mg PO DAILY #90 tabs 09/11/24 levothyroxine 125 mcg tablet 125 mcg PO DAILY #30 tabs 09/30/24 Allergies Allergy/AdvReac Type Severity Reaction Status Date / Time hydralazine [Hydralazine] Allergy Unknown SEVERE Verified 10/13/24 08:54 HEADACHE Review of Systems Review of Systems: As per HPI Yes all other systems are reviewed and are negative Constitutional: Constitutional: Reports as per HPI [facility] Past Medical History Medical History Chest pain RUQ pain Wheezing Elevated diaphragm Pulmonary nodules Aortic stenosis Edema CAD (coronary artery disease) Diabetes type 2, controlled Elevated prostate specific antigen between 10 and 19 ng/ml Atrial fibrillation Jayy's disease Elevated morning serum cortisol level Surgical History History of cardiac cath Hx of tonsillectomy Hx of colonoscopy Family History Family History Father Colon cancer Mother HTN (hypertension) Type 2 diabetes mellitus Brother No problems noted. Sister No problems noted. Son No problems noted. Son No problems noted. Son No problems noted. Daughter No problems noted. Daughter No problems noted. Social History Social History Housing: Apartment Alcohol intake: former Year quit: 1979 Patient Tobacco Use Status: Former Tobacco user Years Smoked: 45+ Smoked in Last 30 Days: No e-Cigarette/Vaping Use: Never Used Second Hand Smoke Exposure: No Use of substances other than those prescribed or required for medical reasons: No Advance Directives: Yes Advance Directives Information Provided: No Advance Directives on File: No service: Yes ([employer] [id number]) Current occupational status: retired Current occupational exposures/hazards: No Cognitive needs: No Hearing needs: Yes Vision needs: No Physical Exam ED Vital Signs: Vital Signs - 24 hr 10/13/24 08:53 10/13/24 09:16 10/13/24 13:14 Temperature 98.3 F Pulse Rate 78 Respiratory Rate 16 16 Blood Pressure 153/65 H 153/75 H Pulse Oximetry 98 Oxygen Delivery Method Room Air BMI result Body Mass Index 29.0 Vital signs have been reviewed and appear to be correct. Blood pressure normal. Heart rate normal. Respiratory rate normal. Temperature normal. Oxygen saturation normal. Const General: cooperative, healthy appearing and no acute distress Orientation/consciousness: oriented to person, oriented to place, oriented to time and patient oriented x3 Limitations: no limitations HENMT Head: Yes normocephalic and Yes atraumatic Ears: external ears normal General nose exam: Normal external nose present Face and sinus: Yes face symmetric Mouth: oropharynx normal and moist mucous membranes Throat: Yes uvula midline Eyes Pupils: Equal, round and reactive pupils present Neck Neck: Yes normal visual inspection, Yes full ROM, Yes trachea midline, Yes supple, No anterior neck swelling, No tender and No submandibular swelling Lymphatic: no lymphadenopathy noted Resp Effort & Inspection: normal respiratory effort and able to speak in complete sentences Auscultation: clear to auscultation bilaterally and wheezes scattered wheezes Cardio Rate: regular rate Rhythm: regular rhythm Heart sounds: S1 normal heart sound present and S2 normal heart sound present GI Palpation (GI): Soft to palpation and nontender Auscultation: normoactive bowel sounds General: Yes no CVA tenderness Back/Spine/Pelvis Back: no CVA tenderness Skin General skin exam: elasticity normal and turgor normal Neuro General: oriented to person, oriented to place, oriented to time, patient oriented x3, moves all extremities, no focal motor deficits and CN's II-XI intact bilaterally Cranial nerves: Yes Equal, round and reactive pupils present Cognition (Neuro): normal cognition Extrem General: Yes full ROM, Yes no pedal edema and Yes no calf tenderness Psych Mental Status: mental status grossly normal Affect: normal affect Thought process: Normal thought process present Medications Administered Discontinued Medications Generic Name Dose Route Start Last Admin Trade Name Freq PRN Reason Stop Dose Admin Bumetanide 0.5 mg 10/13/24 12:40 10/13/24 13:14 Bumetanide 1 Mg/4 Ml Vial IVPUSH 10/13/24 12:41 0.5 mg ONCE ONE Administration Protocol Procedures Procedure Narrative Procedure Narrative: EMERGENCY ULTRASOUND INTERPRETATION-Limited Echocardiography [This study was ordered, performed, and interpreted by myself. The study reveals: Impression: Thickened LV with moderate reduction of LV function. No RV dysfunction, bilateral B-lines suggesting pulmonary edema. Moderate pericardial effusion without tamponade. [Emergent Cardiac for Indication: Views Used: PLAX, PSSA, A4, SX, IVC Pericardial Effusion/Tamponade Findings: Pericardial effusion, moderate no tamponade RV Dilation (> LV diam in 4ch apical): NONE Global LV Fxn: Moderately reduced IVC Dilation and Resp Variation: NORMAL Lungs: Bilateral apical B-lines suggesting pulmonary edema Performed by: MD Rajni Images were stored CPT:[id number]] Medical Decision Making Medical Decision Making [facility] Narrative: Patient is an 89-year-old male with history of T2 DM, CAD, aortic stenosis, AFib on warfarin, HTN, elevated R diaphragm presenting to the emergency department with complaint of dyspnea for the past few days. On exam patient is awake, A+Ox3, VS WNL, afebrile, normal neurological exam without focal deficits, physical exam findings as above. Given reported symptoms and physical exam findings, initial differential includes but is not limited to viral illness, pneumonia, pulmonary edema, arrhythmia, ACS, CHF, anemia, electrolyte abnormality. Labs notable for elevated trop, repeat flat, elevated BNP. X-ray notable for no evidence of pneumonia. My interpretation is in agreement with the radiologist's interpretation. Case discussed with attending, Dr. Urban who performed bedside echo which was notable for moderate effusion, B lines, and decreased LV contractility. Dr. Mota notified. Admission to medicine accepted by Dr. Patel. Differential Diagnosis Differential Diagnoses: The differential diagnosis associated with the presentation includes as per [facility] Admission/Observation Consideration of admission/observation: Escalation of care including admission/observation considered Consult Healthcare Provider Management of the patient was discussed with: Hospitalist and Grinder Set Up Operator (Dr. Mota) Lab Data [facility] Lab Attestation statement: I reviewed the patient's lab results. as per [facility] 10/13/24 09:13 10/13/24 09:13 Labs: Lab Results 10/13/24 10/13/24 10/13/24 Range/Units 09:13 09:14 14:03 WBC 11.4 H (4.8-10.8) X10*3/uL RBC 3.44 L (4.60-5.80) X10*6/uL Hgb 12.1 L (14.0-18.0) g/dl Hct 36.0 L (42.0-52.0) % MCV 104.7 H (80.0-98.0) fL MCH 35.2 H (27.0-33.0) pg MCHC 33.6 (31.0-36.0) g/dl RDW 13.3 (11.0-16.0) % Plt Count 177 (160-400) X10*3/uL MPV 10.9 (9.4-12.4) fL Immature Gran % (Auto) 0.3 (0.0-0.4) % Neut % (Auto) 83.7 H (45-73) % Lymph % (Auto) 9.5 L (20-40) % [place] % (Auto) 6.1 (2-11) % Eos % (Auto) 0.1 (0-4) % Baso % (Auto) 0.3 (0-2) % Lymph # (Auto) 1.1 L (1.2-4.9) X10*3/uL [place] # (Auto) 0.7 (0.1-1.2) X10*3/uL Eos # (Auto) 0.0 (0.0-0.4) X10*3/uL Baso # (Auto) 0.0 (0.0-0.2) X10*3/uL Abs Immat Gran (auto) 0.03 (0.00-0.03) X10*3/uL Absolute Neuts (auto) 9.6 H (2.0-8.3) x10*3/uL Absolute Nucleated RBC 0.000 (0.0-0.012) X10*3/uL Nucleated RBC % (auto) 0.0 (0.0-0.2) /100WBC PT 44.0 H (10.9-12.4) SEC INR 3.8 H D (0.9-1.1) Sodium 142 (135-145) mmol/L Potassium 4.1 (3.3-5.1) mmol/L Chloride 111 H (96-108) mmol/L Carbon Dioxide 24 (22-29) mmol/L Anion Gap 11 L (12-20) BUN 21 H (9-16) mg/dL Creatinine 1.31 (0.5-1.4) mg/dL Estim Creat Clear Calc 38.3 Estimated GFR 52 Random Glucose 200 H (60-115) mg/dL Calcium 9.1 D (8.4-10.2) mg/dL Total Bilirubin 1.4 H (0.0-1.0) mg/dL AST 36 (5-37) U/L ALT 32 (0-40) U/L Alkaline Phosphatase 102 (39-117) U/L Troponin I High Sens 150.3 H* D 149.7 H* (<3.5-35.0) ng/L B-Natriuretic Peptide 1114 H (<100) pg/mL Total Protein 6.8 (6.5-8.0) g/dL Albumin 4.1 (3.5-5.0) g/dL Influenza Type A (PCR) NEGATIVE (Negative) Influenza Type B (PCR) NEGATIVE (Negative) RSV RNA Qual (PCR) NEGATIVE (Negative) SARS-CoV-2 RNA (RT-PCR) NEGATIVE (Negative) Independent Interpretation I performed an independent interpretation of an: EKG (afib, rate 66, normal QTc) and Plain X-Ray Interpretation: No evidence of pNA on CXR Radiology Impression Discussion of test interpretation with radiology: I have reviewed the radiologist's reading. Radiologist Impression: XR/XR chest 2V IMPRESSION: No active disease. Stable chronic changes as discussed. External Record Review External record reviewed: Inpatient record, Office record and Outpatient record Discharge Plan Discharge Clinical Impression: Heart failure Patient Disposition: Admitted As Inpatient Prescriptions: No Action OneTouch Ultra Test Strip 1 strip miscellaneous BID 30 Days Qty: 200 5RF (DME) lancets Misc See Rx Instructions .Route Qty: 200 3RF Rx Instructions: One Touch Ultra Test Strips As directed to test blood sugar twice a day. Ninety day supply glipizide 2.5 mg tablet extended release 24hr 2.5 mg PO DAILY 90 Days Qty: 90 2RF amlodipine 2.5 mg tablet 2.5 mg PO DAILY 90 Days Qty: 90 3RF lisinopril 5 mg tablet 5 mg PO DAILY 90 Days Qty: 90 1RF warfarin 2 mg tablet 4 mg PO DAILY Qty: 60 12RF Protocol: Dose Management Condition: Sunday (Week One) Dose/Route: 2 mg Instruction: 1 x 2 mg tablet Condition: Sunday Dose/Route: 4 mg Instruction: 2 x 2 mg tablets Condition: Sunday Dose/Route: 4 mg Instruction: 2 x 2 mg tablets Condition: Sunday Dose/Route: 4 mg Instruction: 2 x 2 mg tablets Condition: Dose/Route: 4 mg Instruction: 2 x 2 mg tablets Condition: Sunday Dose/Route: 4 mg Instruction: 2 x 2 mg tablets Condition: Sunday Dose/Route: 4 mg Instruction: 2 x 2 mg tablets Condition: Sunday ( Two) Dose/Route: 2 mg Instruction: 1 x 2 mg tablet Condition: Sunday Dose/Route: 4 mg Instruction: 2 x 2 mg tablets Condition: Sunday Dose/Route: 4 mg Instruction: 2 x 2 mg tablets Condition: Sunday Dose/Route: 4 mg Instruction: 2 x 2 mg tablets Condition: Dose/Route: 4 mg Instruction: 2 x 2 mg tablets Condition: Sunday Dose/Route: 4 mg Instruction: 2 x 2 mg tablets Condition: Sunday Dose/Route: 4 mg Instruction: 2 x 2 mg tablets Protocol Text: Adjustment Start Date: Sunday09/23/24 INR Value: 3.1 INR Date: 09/23/24 Recheck Date: 10/14/24 bumetanide 1 mg tablet 1 mg PO Q OTHER DAY 90 Days Qty: 45 3RF Rx Instructions: Pt is on 1 tab every other day. meclizine 12.5 mg tablet 12.5 mg PO BID-QID PRN (Reason: dizziness) 15 Days Qty: 30 0RF pravastatin 40 mg tablet 40 mg PO DAILY Qty: 90 0RF levothyroxine 125 mcg tablet 125 mcg PO DAILY Qty: 30 0RF (DME) OneTouch Ultra Blue Test Strip Strip See Rx Instructions .ROUTE BID Qty: 10 Rx Instructions: As directed (DME) lancets [OneTouch UltraSoft 2 Lancet] 30 gauge misc See Rx Instructions .ROUTE .MEDSUPPLY Qty: 100 Rx Instructions: As directed multivitamin [Daily Multi-Vitamin] PO ascorbic acid (vitamin C) PO DAILY tamsulosin 0.4 mg capsule 0.4 mg PO BEDTIME 90 Days Qty: 90 1RF tadalafil 5 mg tablet 5 mg PO DAILY 90 Days Qty: 90 1RF Print Language: Arabic
--- NOTE | 2024-10-13 08:40 | ECG_ITS ---
Test Reason : sob Blood Pressure : */* mmHG Vent. Rate : 66 BPM Atrial Rate : * BPM P-R Int : * ms QRS Dur : 80 ms QT Int : 428 ms P-R-T Axes : * 89 188 degrees QTcB Int : 448 ms Atrial fibrillation Anterolateral infarct (cited on or before 20-Jul-2022) Abnormal ECG When compared with ECG of 21-Sep-2022 11:20, Questionable change in initial forces of Anterolateral leads Referred By: Cassidy Nolan Electronically Signed By: SONIDO ZAZUETA MD
[2024-10-13 08:53] VITALS: BP 153/65; PULSE 78; RESP 16; TEMP 36.8; O2SAT 98; BMI 29.0
--- OUTSIDE RECORDS SUMMARY | 2024-10-13 09:09 | XMS_ITS | Continuity of Care Document ---
Author Name [facility] Organization [facility] Care Team Providers Care Income Tax Preparer Name Role Phone DOD-ND Unavailable Unavailable Problems Combined list of problems from Department of Defense and Veterans Affairs facilities. It does not include entries that were removed or entered in error. Problem Status Onset Date Problem Type Date of Resolution Comments Source Abnormal vision Active 05/07/19 Condition May 20, 2019 Entered By: MC ADN Comment: followed by optometry [facility] Benign Prostatic Hypertrophy Without Outflow Obstruction (SCT 137797562) Active 05/07/19 19 Condition May 21, 2018 Entered By: MC DAN Comment: treated with finasteride [facility] Essential hypertension Active 05/07/19 09 Condition [facility] Hearing loss (SNOMED CT 41592480) Active 05/07/19 09 Condition [facility] HLD - Hyperlipidemia Active 05/07/19 09 Condition [facility] Hypothyroidism (SNOMED CT 59936241) Active 05/07/19 09 Condition [facility] Diabetes Mellitus Type 2 (SCT 38060164) Active Condition Apr 17, 2024 Entered By: SKYLAR GREGORY Comment: vet under care of community PCP/ Dr Sheldon Muniz- good glycemic control [facility] History of actinic keratosis Active Condition Feb 08, 2024 Entered By: SKYLAR GREGORY Comment: see tele derm-lesions on right side of face/ vet needs cryotx per derm [facility] Low Back Pain (SCT 413061047) Active Condition Oct 26, 2021 Entered By: [facility] Diagnosis: ICD-10-CM Z13.89 Encounter [...] DAILY ORAL ACTIVE D'ALESSAN RUBENKERI Galindo 20[facility] BUMETANIDE 1MG TAB TAKE ONE TABLET BY MOUTH ONCE DAILY ORAL ACTIVE D'ALESSAN KERI MIRANDA 2023 [facility] CARBOXYMETH YLCELLULOSE NA 0.5% SOLN,OPH INSTILL 1 DROP INTO EACH EYE FOUR TIMES A DAY FOR DRY EYE OPHTHA LMIC ACTIVE 12/25/2024 [id number] 4 CHE SOSA EY J 2023 45 [facility] GLIPIZIDE 5MG TAB TAKE ONE-HALF TABLET BY MOUTH ORAL ACTIVE D'ALESSAN RUBENKERI HERMELINDO Josie 2023 [facility] LEVOTHYROXI NE NA 125MCG TAB (SYNTHROID) TAKE ONE TABLET BY MOUTH QD ORAL ACTIVE D'ALESSAN RUBENKERI HERMELINDO Josie 2023 [facility] LISINOPRIL 10MG TAB TAKE ONE TABLET BY MOUTH ONCE DAILY ORAL ACTIVE D'ALESSAN RUBENKERI Galindo 2023 [facility] PRAVASTATIN NA 40MG TAB TAKE ONE TABLET BY MOUTH AT BEDTIME ORAL ACTIVE PRASHANT DAN 2009 [facility] Immunizations Combined list of available immunizations from the Department of Defense and Veterans Affairs facilities. Immunization Series Date Given Administered By Site Reaction Lot Number CVX Code Drug Stock Blender Status Comments Source INFLUENZA, UNSPECIFIED FORMULATION 2023 88 complet ed HISTORICA L INFORMATI ON - SOURCE UNSPECIFI ED, [facility] INFLUENZA, UNSPECIFIED FORMULATION 2021 88 complet ed [facility] COVID-19 (MODERNA), MRNA, LNP-S, PF, 100 MCG OR 50 MCG DOSE 3 2020 207 complet ed MOD; [id number]; 2 [facility] COVID-19 (MODERNA), MRNA, LNP-S, PF, 100 MCG/0.5 ML DOSE 2 2020 207 complet ed MOD; [id number]; 1 [facility] COVID-19 (MODERNA), MRNA, LNP-S, PF, 100 MCG/0.5 ML DOSE 1 2020 207 complet ed MOD; [id number]; 1 [facility] [...] ed received in community flu clinic at [facility] [...] Disposition Source [facility] Outpatient Encounter [id number] 04/23 [facility] OFFICE O/P EST LOW 20-29 MIN [id number] Diagnos is: ICD-10- CM E11.22 Type 2 diabete s mellitu s w diabeti c chronic kidney disease SKYLAR LEMUS 05/03 [facility] HEARING AID REPAIR/MOD IFYING [id number] Diagnos is: ICD-10- CM H90.3 Sensori neural hearing loss, bilater al ,JOHNSON OLE L 05/24 [facility] Outpatient Encounter [id number] 06/01 [facility] OFFICE O/P EST SF 10 MIN [id number] Diagnos is: ICD-10- CM E11.9 Type 2 diabete s mellitu s without complic ations Juan A MACHUCA 06/06 [facility] Out[facility] Encounter [id number] 09/24 [facility] Out[facility] Encounter [id number] 09/24 [facility] Outpatient Encounter [id number] 10/22 [facility] Outpatient Encounter [id number] Diagnos is: ICD-10- CM S46.911 A Strain unsp musc/fa sc/tend at shldr/u p arm, right arm, init 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,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 10/24 [facility] DETERMINE REFRACTIVE STATE [id number] Diagnos is: ICD-10- CM E11.9 Type 2 diabete s mellitu s without complic ations JACK SOSA 12/24 [facility] CPTR OPHTH DX IMG POST SEGMT [id number] Diagnos is: ICD-10- CM 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 Diagnos is: ICD-10- CM Z13.89 Encount er for screeni ng for other disorde r DARCIE HAIR ICA A 02/06 [facility] TRIM NAIL(S) [id number] 1. Diagnos is: ICD-10- CM E11.9 Type 2 diabete s mellitu s without complic ations VICENTE MANZANO 02/06 [facility] Outpatient Encounter [id number] Diagnos is: ICD-10- CM L57.0 Actinic keratos is MARY ARIAS PH J 02/07 [facility] Out[facility]counter [id number] 1.02/07 [facility] Outpatient Encounter [id number] 02/10 [facility] OFFICE O/P EST MOD 30 MIN [id number] Diagnos is: ICD-10- CM E11.9 Type 2 diabete s mellitu s without complic ations SKLYAR LEMUS 04/17 [facility] TRIM NAIL(S) [id number] Diagnos is: ICD-10- CM E11.9 Type 2 diabete s mellitu s without complic ations JOSE JUANRENÉEVICENTE GAMALIEL 06/09 [facility] OFFICE O/P NEW MOD 45 MIN [id number] Diagnos is: ICD-10- CM L57.0 Actinic keratos is TERESA ALBRIGHT 08/07 [facility] HEARING AID REPAIR/MOD IFYING [id number] Diagnos is: ICD-10- CM Z46.1 Encount er for fitting and adjustm ent of hearing aid RAYSHAWN SANDHU 08/07 [facility] TRIM NAIL(S) [id number] Diagnos is: ICD-10- CM E11.9 Type 2 diabete s mellitu s without complic ations JOSE JUANVICENTE GAMALIEL 10/08 [facility] Social History Combined list of available smoking, tobacco, and other social history from Department of Defense and Veterans Affairs facilities. Social History Type Response Date Comment Source Tobacco smoking status [facility] VA-TOBACCO USE FORMER CIGARETTES 04/17/2024 [facility] History of tobacco use VA-TOBACCO NEVER USED OTHER TYPE 04/17/2024 [facility] History of tobacco use VA-TOBACCO FORMER USER 05/03/2023 [facility] History of tobacco use ND-TOBACCO FORMER USER 10/26/2021 [facility] History of tobacco use ND-TOBACCO FORMER USER 08/19/2020 [facility] History of tobacco use QUIT TOBACCO USE > 7 YEARS AGO 05/09/2017 quit 35 yrs ago [facility] History of tobacco use LIFETIME NON-TOBACCO USER 05/09/2016 [facility] History of tobacco use QUIT TOBACCO USE > 7 YEARS AGO 05/06/2015 pt states he stopped smoking 20 yrs ago [facility] History of tobacco use QUIT TOBACCO USE > 7 YEARS AGO 04/05/2009 QUIT 15 YEARS AGO [facility] Plan of Care List of future care activities from Department of Veterans Affairs facilities. Additional future care activities may be listed in the Assessment and Plan section. Date/Time Care Activity Care Activity Detail Facili ty 10/30/2024 AMBULATORY - MEDICINE AMBULATORY - MEDICI [facility]
[2024-10-13 09:16] VITALS: RESP 16
[2024-10-13 09:18] LABS: MANUAL DIFF FLAG NO
--- NOTE | 2024-10-13 09:18 | PC.NURSE ---
[facility] and ambulates without difficulty. Reports shortness of breath since last night. Denies cough, fine crackles noted to bilat lower lungs and +1 edema to BLE. Denies pain but reports having stones in throat. Labs obtained and sent, xray pending.
[2024-10-13 09:20] LABS: Basophils Percent Auto 0.3 % (0-2); Eosinophils Percent Auto 0.1 % (0-4); Hemoglobin 12.1 g/dl (14.0-18.0); Imm Gran Abs Auto 0.03 X10*3/uL (0.00-0.03); Imm Gran Pct Auto 0.3 % (0.0-0.4); Lymphocytes Absolute Auto 1.1 X10*3/uL (1.2-4.9); Lymphocytes Percent Auto 9.5 % (20-40); Mean Corpuscular HGB Conc 33.6 g/dl (31.0-36.0); Mean Corpuscular Hemoglobin 35.2 pg (27.0-33.0); Mean Corpuscular Volume 104.7 fL (80.0-98.0); Mean Platelet Volume 10.9 fL (9.4-12.4); Monocytes Absolute Auto 0.7 X10*3/uL (0.1-1.2); Monocytes Percent Auto 6.1 % (2-11); Neutrophils Absolute Auto 9.6 x10*3/uL (2.0-8.3); Neutrophils Percent Auto 83.7 % (45-73); Platelet Count 177 X10*3/uL (160-400); Red Blood Count 3.44 X10*6/uL (4.60-5.80); Red Cell Distribution Width 13.3 % (11.0-16.0); White Blood Count 11.4 X10*3/uL (4.8-10.8)
[2024-10-13 09:49] LABS: B Type Natriuretic Peptide 1114 pg/mL (<100)
[2024-10-13 09:53] LABS: Alanine Aminotransferase 32 U/L (0-40); Albumin Level 4.1 g/dL (3.5-5.0); Alkaline Phosphatase 102 U/L (39-117); Anion Gap 11 (12-20); Aspartate Amino Transferase 36 U/L (5-37); Bilirubin Total 1.4 mg/dL (0.0-1.0); Blood Urea Nitrogen 21 mg/dL (9-16); Calcium 9.1 mg/dL (8.4-10.2); Carbon Dioxide 24 mmol/L (22-29); Chloride 111 mmol/L (96-108); Creatinine Clr Calc Pharmacy 38.3; Estimated Glomerular Filt Rate 52; Glucose Random 200 mg/dL (60-115); Potassium 4.1 mmol/L (3.3-5.1); Sodium 142 mmol/L (135-145); Total Protein 6.8 g/dL (6.5-8.0)
[2024-10-13 09:57] LABS: Troponin-I High Sensitivity 150.3 ng/L (<3.5-35.0)
[2024-10-13 10:15] LABS: Influenza A PCR NEGATIVE (Negative); Influenza B PCR NEGATIVE (Negative); Resp Syncy Virus RNA Qual PCR NEGATIVE (Negative); SARS COV2 PCR INHOUSE NEGATIVE (Negative)
[2024-10-13 11:00] VITALS: BP 173/97; PULSE 85; RESP 17; TEMP 36.8; O2SAT 95
[2024-10-13 13:14] VITALS: BP 153/75
[2024-10-13] MEDS: Bumetanide 1 MG/4 ML VIAL 0.5 MG IVPUSH (13:14)
[2024-10-13 14:14] LABS: INTERNATIONAL NORM RATIO 3.8 (0.9-1.1)
[2024-10-13 14:31] LABS: Troponin-I High Sensitivity 149.7 ng/L (<3.5-35.0)
--- NOTE | 2024-10-13 14:43 | PC.NURSE ---
Pt resting comfortably in bed, no apparent s/s of distress. A/O, calm and cooperative with care. #22 placed in left hand, labs collected and sent. Plans for echo to be preformed. Pt voiding moderate amounts of CYU in urinal. POC ongoing
[2024-10-13 15:55] VITALS: BP 142/64; PULSE 68; RESP 18; TEMP 36.4; O2SAT 97
--- NOTE | 2024-10-13 18:32 | PHA.MEDREC ---
Addendum entered by Sherif Barbosa PharmD 10/13/24 18:37: reviewed Original Note: Pharmacy Consult ? Medication Reconciliation Pharmacy has completed the medication reconciliation Spoke to patient to confirm med list. Patient had a list of his medications with him. Patient states he takes Bumetanide ever other day, however he doesn't know when he last took. patient confirm Warfarin 4 mg ( 2x 2 mg) bedtime.
--- NOTE | 2024-10-13 19:04 | PM.IMHP ---
History of Present Illness Date of Service: 10/13/24 Attending physician on admission: Em Bull Chief Complaint: Dyspnea Patient is an 89-year-old male with past medical history exk-zgqhuhh-pszzhjqch diabetes, HFpEF, moderate aortic stenosis, AFib on Coumadin, hearing loss, hypertension, sialadenitis, erectile dysfunction last used Cialis 3 months prior, hyperlipidemia, hypothyroidism, Jayy's disease, BPH drove self to the emergency room with complaints of overnight shortness of breath and oral dryness with stones in throat making swallowing difficult. Patient denies any chest pain, abdominal pain, nausea, vomiting, diarrhea or constipation. Patient also mentions that he is being worked up by his primary care physician for vertigo. Patient has an outpatient referral to ear nose and throat but has not yet seen the specialist. Patient was started on meclizine by his PCP with no improvement in his sporadic symptoms. Unable to illicit nystagmus or dizziness here in the ED. No abnormal normal findings on otic exam. Bedside ultrasound was performed in the emergency department and noted moderate pericardial effusion with no evidence of tamponade. B lines also present indicative of pulmonary edema. EKG indicated atrial fibrillation with a heart rate of 66, QTC 448 uncorrected. Patient received 0.5 Bumex IV x1 in the ED. Patient currently on room air. Patient does not use oxygen at home. Chest x-ray notes a significantly elevated right hemidiaphragm with stable calcified granuloma in the left upper lung. Chest x-ray negative for effusions, consolidations or opacities. No pneumothorax or pleural effusion identified. Radiologist notes stable chronic changes with no acute findings. Patient has a mild leukocytosis, no fever or chills reported. No change in H&H indicating acute anemia. BNP 1114. Troponins 150, then 149.7. Review of Systems Review of Systems: Patient currently denies any chest pain, shortness of breath at rest or with exertion, abdominal pain, nausea, vomiting, diarrhea or constipation. Patient denies any headache, visual changes or recent falls. Patient currently lives alone continues to drive and drove himself here to the ED today. No obvious issues with cognition, or memory. Yes all other systems are reviewed and are negative [facility] Medical History (Updated 10/13/24 @ 20:01 by NICK Ramey) (HFpEF) heart failure with preserved ejection fraction Sialadenitis Benign cyst of skin Chest pain RUQ pain Wheezing Elevated diaphragm (~10/13/24) Pulmonary nodules Aortic stenosis Edema CAD (coronary artery disease) Diabetes type 2, controlled Elevated prostate specific antigen between 10 and 19 ng/ml Atrial fibrillation Jayy's disease Elevated morning serum cortisol level Cognitive capacity: Alert and orientated x3 Functional capacity: independent ambulation Family History Father Colon cancer Mother HTN (hypertension) Type 2 diabetes mellitus Brother No problems noted. Sister No problems noted. Son No problems noted. Son No problems noted. Son No problems noted. Daughter No problems noted. Daughter No problems noted. Surgical History History of cardiac cath Hx of tonsillectomy Hx of colonoscopy Social History Housing: Apartment Alcohol intake: former Year quit: 1979 Patient Tobacco Use Status: Former Tobacco user Years Smoked: 45+ Smoked in Last 30 Days: No e-Cigarette/Vaping Use: Never Used Second Hand Smoke Exposure: No Use of substances other than those prescribed or required for medical reasons: No Advance Directives: Yes Advance Directives Information Provided: No Advance Directives on File: No service: Yes ([employer] [id number]) Current occupational status: retired Current occupational exposures/hazards: No Cognitive needs: No Hearing needs: Yes Vision needs: No Ebola Risk: Travel/Contact With Anyone From Affected Area/s: No Has Patient Experienced Ebola Symptoms: No Meds Allergies Allergy/AdvReac Type Severity Reaction Status Date / Time hydralazine [Hydralazine] Allergy Unknown SEVERE Verified 10/13/24 08:54 HEADACHE Home Medications ?Medication ?Instructions ?Recorded ?Confirmed ?Last Taken ?Type blood sugar diagnostic #10 ea 02/24/20 09/23/24 Unknown History lancets 30 gauge (OneTouch #100 ea 06/07/23 09/23/24 Unknown History UltraSoft 2 Lancet) ascorbic acid (vitamin C) 500 mg 500 mg PO DAILY 10/13/24 10/13/24 10/13/24 History tablet (Vitamin C) bumetanide 1 mg tablet 1 mg PO Q48H 10/13/24 10/13/24 Unknown History levothyroxine 125 mcg tablet 125 mcg PO DAILY@0600 10/13/24 10/13/24 10/13/24 History okuwrouwkpqs-pmobdgjx-jqvvei 1 tab PO DAILY 10/13/24 10/13/24 10/13/24 History tablet (Multivitamin 50 Plus tablet) warfarin 2 mg tablet 4 mg PO DAILY@1800 10/13/24 10/13/24 10/12/24 History Physical Exam Vital Signs and Narrative: Vital Signs: Last Vital Signs Temp 97.6 F 10/13/24 15:55 Pulse 68 10/13/24 15:55 Resp 18 10/13/24 15:55 BP 142/64 H 10/13/24 15:55 Pulse Ox 97 10/13/24 15:55 O2 Del Method Room Air 10/13/24 15:55 BMI result Body Mass Index 29.0 Alert and orientated X3, able to give good history. Neuro: CN II-X11 intact, no deficits, visual acuity intact EYES: PERRLA, EOM intact, sclerae nonicteric, conjunctiva pink ENT: Patient hard of hearing, dry mouth, salivary stones noted bilaterally under chin area with no evidence of inflammation, swelling or infection, uvula midline, lips moist, nares patent no epistaxis Cardiac: S1 S2 irregular, systolic murmur, no JVD, no edema in Lower ext Pulmonary: lungs diminished bilaterally, no wheezing or rhonchi heard Abdominal: BS active in all 4 quadrants, no guarding, tenderness, rebounding, mild distention MSK: strength 5/5 upper and lower extremities : no CVA tenderness no bladder distension Extremities: no edema in lower extremities, PT and DP pulses palpable +2 Psych: mood stable, judgement and insight good Skin: Scar right upper mid extremity from area were benign tumor was removed Results Labs 10/13/24 09:13 10/13/24 09:13 Labs: Laboratory Results - last 24 hr 10/13/24 10/13/24 10/13/24 09:13 09:14 14:03 MCV 104.7 H MCH 35.2 H MCHC 33.6 RDW 13.3 Plt Count 177 MPV 10.9 Immature Gran % (Auto) 0.3 Neut % (Auto) 83.7 H Lymph % (Auto) 9.5 L [place] % (Auto) 6.1 Eos % (Auto) 0.1 Baso % (Auto) 0.3 Lymph # (Auto) 1.1 L [place] # (Auto) 0.7 Eos # (Auto) 0.0 Baso # (Auto) 0.0 Abs Immat Gran (auto) 0.03 Absolute Neuts (auto) 9.6 H Absolute Nucleated RBC 0.000 Nucleated RBC % (auto) 0.0 PT 44.0 H INR 3.8 H D Anion Gap 11 L Estim Creat Clear Calc 38.3 Estimated GFR 52 Random Glucose 200 H Calcium 9.1 D Total Bilirubin 1.4 H AST 36 ALT 32 Alkaline Phosphatase 102 Troponin I High Sens 150.3 H* D 149.7 H* B-Natriuretic Peptide 1114 H Total Protein 6.8 Albumin 4.1 Influenza Type A (PCR) NEGATIVE Influenza Type B (PCR) NEGATIVE RSV RNA Qual (PCR) NEGATIVE SARS-CoV-2 RNA (RT-PCR) NEGATIVE ECG Attestation: I personally reviewed and interpreted this ECG as follows: (AFib rate 66) Prior ECG tracings: available for review Imaging Radiologist's Impressions: Impressions Chest X-Ray 10/13/24 08:01 IMPRESSION: No active disease. Stable chronic changes as discussed. Electronically signed by: Williams Copeland MD 10/13/2024 09:14 AM EDT RP Assessment and Plan (1) CHF exacerbation: Status: Acute Plan Patient is an 89-year-old male with past medical history jys-eowagaz-pjvnvonsk diabetes, HFpEF, moderate aortic stenosis, AFib on Coumadin, hearing loss, hypertension, sialadenitis, erectile dysfunction last used Cialis 3 months prior, hyperlipidemia, hypothyroidism, Jayy's disease, BPH drove self to the emergency department with complaints of dyspnea and dry mouth. Patient is being admitted for CHF exacerbation with noted moderate pericardial effusion than an INR of 3.8 on Coumadin for AFib. Patient is hemodynamically stable and can be admitted to [facility] telemetry. CHF exacerbation -ECho ordered -Cardiology consulted -Cardiac diet, low-salt, fluid restriction 1500 -Daily weights, strict I's and O's -Bumex 1 mg scheduled for a.m., patient presents euvolemic -Bedside echo indicated pulmonary edema with B lines present, CXR neg for acute findings -BNP 1114 -Telemetry -Patient currently on room air with no evidence of hypoxia. Pt does not use O2 at home. -Continue lisinopril 5 mg daily Moderate pericardial effusion without evidence of tamponade -Formal echo ordered -Patient is on Coumadin for AFib, INR 3.8 - hold Coumadin, daily INR -H&H is stable -Telemetry -Cardiology consulted Moderate aortic stenosis -Repeat echo ordered -Systolic murmur on exam mild AFIB on coumadin/ supratherapeutic INR 3.8 -Patient currently AFib rate controlled -INR supratherapeutic - hold Coumadin for now -Daily INR -Patient not normally on AV ellen blocking agents or digoxin Sialadenitis -Biotene/ dry mouth spray ordered -Patient's PCP has ordered a ENT outpatient referral, appointment pending -No evidence of inflammation, swelling or infection present Recent issues with vertigo/ OTIC exam WNL -Unable to elicit nystagmus or dizziness on exam -Meclizine PRN -PCP as arranged outpatient ENT follow-up, appointment pending -Will check orthostatics, no issues with syncope per patient DMII -Sliding scale insulin -Diabetic diet HTN -Continue lisinopril, amlodipine -Low-salt diet Hypothyroidism -Checking TSH, FT4 -Continue current levothyroxine dose, adjust if needed HLD -Continue pravastatin -Cardiac diet DVT prophylaxis: Coumadin held due to supratherapeutic INR PPI prophylaxis: Omeprazole Med rec completed Full Code status Quality Stroke Does the patient have a stroke diagnosis?: No Reason for No Anti-thrombotic by Day Two: Contraindicated (elevated INR) VTE Prior VTE?: No VTE Risk Level:: Medical - moderate - high VTE Device Contraindication: N/A - Device Ordered VTE Drug Contraindication: Treatment Not Indicated (INR 3.8)
[2024-10-13 19:44] VITALS: BP 139/67; PULSE 70; RESP 16; TEMP 36.7; O2SAT 96
[2024-10-13 20:07] LABS: Magnesium 2.1 mg/dL (1.6-2.6)
[2024-10-13 20:21] LABS: Free T4 (Free Thyroxine) 1.36 ng/dL (0.71-1.85)
[2024-10-13 22:13] LABS: Glucose, Whole Blood 85 mg/dL (60-115)
[2024-10-13] MEDS: Sennosides 8.6 MG TABLET 17.2 MG PO (22:14)
[2024-10-13 22:16] LABS: Troponin-I High Sensitivity 138.4 ng/L (<3.5-35.0)
[2024-10-14] VITALS (9 sets, daily range): BP systolic 103–166; BP diastolic 59–82; PULSE 63–90; RESP 16–18; TEMP 36.1–37.1; O2SAT 95–97; BMI 29.1; BMI 28.6
[2024-10-14] MEDS: Levothyroxine Sodium 125 MCG TABLET PO (05:50)
[2024-10-14] MEDS: Omeprazole 20 MG CAPSULE.DR PO (05:50)
--- NOTE | 2024-10-14 07:00 | CA_ITS ---
Transthoracic Echocardiogram Patient (Last, First, Middle): Boston Rivers R Gender: Male Date of : 1935 Age: 89 Procedure Date: 10/14/2024 Procedure Type: Transthoracic Echocardiogram [place] [facility] [place]: 167.64 cm Weight: 74.84 kg BSA: 1.84 m2 Heart Rate: bpm BP: 124 / 80 mmHg Seam Hammerer: DEIDRE Referring MD: Yandy Banuelos [facility] Skein Washer: Clifton Mota MD Symptoms: CHF exacerbation with moderate pericardial effusio Study Quality: Adequate ECG Rhythm: Atrial Fibrillation Conclusions: - 1. Mildly reduced LV ejection fraction 45-50% with mild LVH with grade 3 diastolic dysfunction 2. Mildly reduced RV systolic function 3. Severely dilated left atrium 4. Moderate aortic stenosis, paradoxical low-flow 5. Mtie-wi-icrckdpd mitral regurgitation 6. Mildly elevated right ventricular systolic pressure with mildly elevated right atrial pressures 7. Small pericardial effusion without tamponade Findings Left Ventricle Normal left ventricular cavity size. There is mildly increased left ventricular wall thickness. The left ventricular systolic function is mildly decreased. The visually estimated ejection fraction is between 45-50%. Spectral Doppler is indicative of a restrictive filling pattern. Elevated filling pressures. Evidence suggests grade III (severe) diastolic dysfunction. Right Ventricle Normal right ventricular cavity size. There is mildly decreased right ventricular systolic function. Atria The left atrium is severely dilated. There is no evidence of interatrial shunt. The right atrium is moderately dilated. Aortic Valve There is moderate calcification of the aortic valve. There is moderate aortic valve stenosis. The peak aortic gradient is 19 mmHg.The mean gradient is 10 mmHg. The aortic valve area is 1.22 cm2. There is no aortic valve regurgitation. Mitral Valve There is mild posterior mitral leaflet thickening. There is mild mitral annular calcification. There is mild to moderate mitral valve regurgitation. There is no mitral valve stenosis. Pulmonic Valve The pulmonic valve is likely normal. There is trace to mild pulmonic valve regurgitation. Tricuspid Valve Normal tricuspid valve structure. There is mild tricuspid valve regurgitation. Mildly elevated right atrial pressure. Mild pulmonary hypertension is present. Great Vessels The aorta was not well visualized. The pulmonary artery was not well visualized. Venous The inferior vena cava is normal in size and collapses less than 50% with inspiration. Pericardium/Pleural There is a small pericardial effusion. Prior Study Comparison Changes noted compared to prior study dated: 09/21/2022. LV ejection fraction has reduced Measurements 2D Linear Measurements IVSd: 1.30 0.6-0.9/0.6-1.0 cm LVIDd: 4.28 3.9-5.3/4.2-5.9 cm LVIDd Index: 2.33 2.4-3.2/2.2-3.1 cm/m2 LVIDs: 2.68 2.0-3.6 cm LVPWd: 1.35 0.7-1.1 cm Ao Root: 2.90 2.1-3.5 cm LA Diam: 5.40 2.7-3.8/3.0-4.0 cm LAIDs Index: 2.93 1.5-2.3 cm/m2 LV Mass: 264.59 67-162/88-224 g LV Mass Index: 143.80 43-95/49-115 g/m2 LVOT Diam: 2.10 3.0+(-)1.3 cm 2D Systolic Function EF 4C: 48.40 >55% EF 2C: 51.00 >55% EF BiP: 47.90 >55% Mitral Valve MV Pk E: 1.30 MV Decel Time: 124.00 E'Lateral: 7.40 E'Medial: 5.98 E/E' Med: 21.70 E/E' Lat: 17.60 PHT: 36.00 MVA PHT: 6.11 Decel [place]: 10.48 Aortic Valve AoV Pk Avelino: 2.16 AoV Mn Avelino: 1.46 AoV VTI: 0.44 AoV Pk Grad: 19.00 Aov Mn Grad: 10.00 RASHID Cont.VTI: 1.22 LVOT LVOT Pk Avelino: 0.74 LVOT Mn Avelino: 0.50 LVOT VTI: 0.16 LVOT Pk Grad: 2.00 LVOT Mn Grad: 1.00 LVOT Diam: 2.10 LVOT Area: 3.46 Diastolic Function MV Pk E: 1.30 E'Medial: 5.98 E/E' Med: 21.70 E' Laterial: 7.40 E/E' Lat: 17.60 Right Ventricle TAPSE (mm): 15.00 Tricuspid Valve TR Pk Avelino: 3.01 TR Pk Grad: 36.00 RA Press: 8.00 RVSP: 44.00 Great Vessels Aorta Ao Root-2D: 2.90 2.0-3.7 cm Ao Asc: 2.90 2.1-3.4 cm Pulmonary Valve PV Pk Avelino: 0.91 Peak PV Grad: 3.00 Updated in Other Vendor System with Status of Final Clifton Mota MD electronically signed on 10/14/2024 1:01:49 PM with status of Final
[2024-10-14 07:15] LABS: MANUAL DIFF FLAG NO
[2024-10-14 07:22] LABS: Basophils Percent Auto 0.4 % (0-2); Eosinophils Absolute Auto 0.1 X10*3/uL (0.0-0.4); Eosinophils Percent Auto 1.5 % (0-4); Hematocrit 34.3 % (42.0-52.0); Hemoglobin 11.6 g/dl (14.0-18.0); Imm Gran Abs Auto 0.03 X10*3/uL (0.00-0.03); Imm Gran Pct Auto 0.4 % (0.0-0.4); Lymphocytes Percent Auto 12.6 % (20-40); Mean Corpuscular HGB Conc 33.8 g/dl (31.0-36.0); Mean Corpuscular Hemoglobin 35.6 pg (27.0-33.0); Mean Corpuscular Volume 105.2 fL (80.0-98.0); Monocytes Absolute Auto 0.5 X10*3/uL (0.1-1.2); Monocytes Percent Auto 6.7 % (2-11); Neutrophils Absolute Auto 6.3 x10*3/uL (2.0-8.3); Neutrophils Percent Auto 78.4 % (45-73); Platelet Count 169 X10*3/uL (160-400); Red Blood Count 3.26 X10*6/uL (4.60-5.80); Red Cell Distribution Width 13.4 % (11.0-16.0); White Blood Count 8.1 X10*3/uL (4.8-10.8)
[2024-10-14 07:36] LABS: INTERNATIONAL NORM RATIO 3.3 (0.9-1.1); Prothrombin Time 37.5 SEC (10.9-12.4)
[2024-10-14 07:38] LABS: Alanine Aminotransferase 21 U/L (0-40); Albumin Level 3.6 g/dL (3.5-5.0); Alkaline Phosphatase 88 U/L (39-117); Anion Gap 11 (12-20); Aspartate Amino Transferase 26 U/L (5-37); Bilirubin Total 1.3 mg/dL (0.0-1.0); Blood Urea Nitrogen 26 mg/dL (9-16); Carbon Dioxide 25 mmol/L (22-29); Chloride 111 mmol/L (96-108); Creatinine Clr Calc Pharmacy 38.4; Estimated Glomerular Filt Rate 52; Glucose Random 150 mg/dL (60-115); Potassium 4.2 mmol/L (3.3-5.1); Sodium 143 mmol/L (135-145)
[2024-10-14 07:42] LABS: Glucose, Whole Blood 127 mg/dL (60-115)
[2024-10-14] MEDS: Pravastatin Sodium 40 MG TABLET PO (09:46)
[2024-10-14] MEDS: lisinopriL 5 MG TABLET PO (09:46)
[2024-10-14] MEDS: amLODIPine Besylate 2.5 MG TABLET PO (09:46)
[2024-10-14] MEDS: Multivitamin TABLET 1 TAB PO (09:46)
[2024-10-14] MEDS: Ascorbic Acid 500 MG TABLET PO (09:46)
[2024-10-14] MEDS: Bumetanide 1 MG/4 ML VIAL IVPUSH (09:47)
[2024-10-14] MEDS: 0.9 % Sodium Chloride Flush 3 ML SYRINGE IVFLUSH ×3 (09:47→20:55)
--- NOTE | 2024-10-14 10:05 | P.CONCA_ITS ---
History of Present Illness History of Present Illness Date of Service: 10/14/24 Consult reason: chest pain and troponin elevation Chief complaint: CHF Narrative: Consulted to see [place] in cardiology consultation today for chest discomfort with elevated troponins and shortness of breath. Patient is a difficult historian as he talks about a lot of stuff that are not relevant. She had prior history of permanent atrial fibrillation nonobstructive CAD, heart failure preserved ejection fraction came to the hospital with chest pain. Patient said this started about 3-4 days ago he would notice that when he would take a deep breath he would suddenly feel a pressure-like sensation in the lower chest/sharp pain. Patient continued to have these symptoms. He was associated with shortness of breath or inability take deep breaths. Patient with walking around in between these episodes was not having any episodes of chest pain with exertion. Patient denied any significant leg swelling, orthopnea, PND. Did have shortness of breath. He continues to have this symptoms every day and then yesterday developed significant discomfort with deep breathing and came to the emergency room. In the emergency room EKGs shows atrial fibrillation with anterolateral Q-waves in the high lateral leads along with no significant ST- elevation ST-depression. His troponins were done which were mildly elevated but flat. His BNP was significantly elevated compared to his baseline in 1100 range. Cardiology consult was sought. He was admitted for decompensated congestive heart failure with question pericarditis/acute coronary syndrome. Patient is on warfarin therapy for atrial fibrillation. He says that he takes his medications every day. Usually prior to this episodes his blood pressure is generally well controlled as per him. He is noted to be hypertensive at current point time. At current time at rest he feels mild chest pressure when he takes a deep breath but this is much improved. His shortness of breath is much improved. Overall negative balance listed in his chart with the last 24 hours of 300 cc. Review of Systems 2 Constitutional: Constitutional: Reports no additional constitutional complaints Eyes: Eyes: Reports no additional eye complaints Cardiovascular: Cardiovascular: Denies chest pain with activity, Denies Epigastric Pain, Denies rapid heart rate, Denies leg edema, Reports dyspnea, Denies orthopnea and Denies paroxysmal nocturnal dyspnea Respiratory: Respiratory: Reports pain on inspiration and Reports dyspnea Gastrointestinal: Gastrointestinal: Reports no additional gastrointestinal complaints Genitourinary: Genitourinary: Reports no additional male genitourinary complaints Musculoskeletal: Musculoskeletal: Reports no additional musculoskeletal complaints Neurologic: Reports system reviewed and no additional complaints, except as documented Allergic/Immunologic: Allergic/Immunologic: Reports no additional allergic/immunologic complaints REPLACED BY [facility] Past Medical History Medical History (HFpEF) heart failure with preserved ejection fraction Sialadenitis Benign cyst of skin Chest pain RUQ pain Wheezing Elevated diaphragm (~10/13/24) Pulmonary nodules Aortic stenosis Edema CAD (coronary artery disease) Diabetes type 2, controlled Elevated prostate specific antigen between 10 and 19 ng/ml Atrial fibrillation Carolina's disease Elevated morning serum cortisol level Family History Family History Father Colon cancer Mother HTN (hypertension) Type 2 diabetes mellitus Brother No problems noted. Sister No problems noted. Son No problems noted. Son No problems noted. Son No problems noted. Daughter No problems noted. Daughter No problems noted. Surgical History Surgical History History of cardiac cath Hx of tonsillectomy Hx of colonoscopy Social History Social History Household Members: None Housing: Apartment Alcohol intake: former Year quit: 1979 Patient Tobacco Use Status: Former Tobacco user Years Smoked: 45+ e-Cigarette/Vaping Use: Never Used Second Hand Smoke Exposure: No Advance Directives Date on File: 10/14/24 service: Yes ([employer] [id number]) Current occupational status: retired Current occupational exposures/hazards: No Cognitive needs: No Hearing needs: Yes Vision needs: No Travel History Ebola Risk: Travel/Contact With Anyone From Affected Area/s: No Has Patient Experienced Ebola Symptoms: No Meds Allergies Allergy/AdvReac Type Severity Reaction Status Date / Time hydralazine [Hydralazine] Allergy Unknown SEVERE Verified 10/13/24 08:54 HEADACHE Active Medications: Current Medications Acetaminophen (Acetaminophen 325 Mg Tablet) 650 mg PO Q6H PRN PRN Reason: Pain, Mild 1-3,fever,headache Albuterol/Ipratropium (Albuterol/Iprat 2.5/0.5mg 3 Ml Ampul.Neb) 3 ml INHALE Q4H PRN PRN Reason: Shortness of Breath/Wheezing Amlodipine Besylate (Amlodipine Besylate 2.5 Mg Tablet) 2.5 mg PO DAILY [facility]; Protocol Last Admin: 10/14/24 09:46 Dose: 2.5 mg Ascorbic Acid (Ascorbic Acid 500 Mg Tablet) 500 mg PO DAILY [facility] Last Admin: 10/14/24 09:46 Dose: 500 mg Bumetanide (Bumetanide 1 Mg/4 Ml Vial) 1 mg IVPUSH DAILY [facility]; Protocol Last Admin: 10/14/24 09:47 Dose: 1 mg Calcium Carbonate (Calcium Carbonate 750 Mg Tab.Chew) 750 mg PO Q4H PRN PRN Reason: Heartburn Dextrose (Dextrose 50 % 25 Gm/50 Ml Syringe) 25 gm IVPUSH Q15M PRN; Protocol PRN Reason: per Hypoglycemia Standing Ord. Glucose (Glucose Gel 15 Gm Gel..Gram.) 15 gm PO Q15M PRN; Protocol PRN Reason: per Hypoglycemia Standing Ord. Insulin Human Lispro (Insulin Lispro 100 Unit/Ml 3 Ml Vial) 0 unit SUBCUT QIDACHS [facility]; Protocol Last Admin: 10/14/24 07:43 Dose: Not Given Levothyroxine Sodium (Levothyroxine Sodium 125 Mcg Tablet) 125 mcg PO DAILY@0600 [facility] Last Admin: 10/14/24 05:50 Dose: 125 mcg Lisinopril (Lisinopril 5 Mg Tablet) 5 mg PO DAILY [facility]; Protocol Last Admin: 10/14/24 09:46 Dose: 5 mg Magnesium Hydroxide (Milk Of Magnesia 30 Ml Oral.Susp) 30 ml PO DAILY PRN PRN Reason: Constipation Meclizine HCl (Meclizine Hcl 12.5 Mg Tablet) 12.5 mg PO Q8H PRN PRN Reason: Vertigo Melatonin (Melatonin 3 Mg Tablet) 6 mg PO BEDTIME PRN PRN Reason: Insomnia Multivitamins/Vitamin C (Multivitamin Tablet) 1 tab PO DAILY [facility] Last Admin: 10/14/24 09:46 Dose: 1 tab Omeprazole (Omeprazole 20 Mg Capsule.Dr) 20 mg PO DAILY@0630 [facility] Last Admin: 10/14/24 05:50 Dose: 20 mg Ondansetron HCl (Ondansetron Hcl 4 Mg/2 Ml Vial) 4 mg IVPUSH Q8H PRN PRN Reason: Nausea and Vomiting Polyethylene Glycol (Polyethylene Glycol 3350 17 Gm Powd.Pack) 17 gm PO DAILY PRN PRN Reason: Constipation Pravastatin Sodium (Pravastatin Sodium 40 Mg Tablet) 40 mg PO DAILY [facility] Last Admin: 10/14/24 09:46 Dose: 40 mg Saliva Substitute (Dry Mouth [place] 60 Ml [place]) 1 spray MUCOUS MEM Q2H PRN PRN Reason: Dry Mouth Senna (Sennosides 8.6 Mg Tablet) 17.2 mg PO BEDTIME [facility] Last Admin: 10/13/24 22:14 Dose: 17.2 mg Sodium Chloride (0.9 % Sodium Chloride Flush 3 Ml Syringe) 3 ml IVFLUSH QSHIFT [facility] Last Admin: 10/14/24 09:47 Dose: 3 ml Home Medications ?Medication ?Instructions ?Recorded ?Confirmed ?Last Taken ?Type blood sugar diagnostic #10 ea 02/24/20 09/23/24 Unknown History lancets 30 gauge (OneTouch #100 ea 06/07/23 09/23/24 Unknown History UltraSoft 2 Lancet) ascorbic acid (vitamin C) 500 mg 500 mg PO DAILY 10/13/24 10/13/24 10/13/24 History tablet (Vitamin C) bumetanide 1 mg tablet 1 mg PO Q48H 10/13/24 10/13/24 Unknown History levothyroxine 125 mcg tablet 125 mcg PO DAILY@0600 10/13/24 10/13/24 10/13/24 History cblvbconauld-[id number] 1 tab PO DAILY 10/13/24 10/13/24 10/13/24 History tablet (Multivitamin 50 Plus tablet) warfarin 2 mg tablet 4 mg PO DAILY@1800 10/13/24 10/13/24 10/12/24 History Physical Exam 2 Vital Signs: Vital Signs: Last Vital Signs Temp 97.8 F 10/14/24 07:27 Pulse 82 10/14/24 07:27 Resp 18 10/14/24 07:27 BP 166/82 H 10/14/24 07:27 Pulse Ox 95 10/14/24 07:27 O2 Del Method Room Air 10/14/24 07:27 BMI result Body Mass Index 28.6 Const: General: cooperative, comfortable, no acute distress, alert and awake Nutritional Appearance: average body habitus Orientation/consciousness: p atient oriented x3 Limitations: no limitations HEENT: Head: Yes normocephalic and Yes atraumatic Neck: Neck: Yes trachea midline, Yes supple and Yes no JVD Resp: Effort & Inspection: normal respiratory effort Auscultation: crackles on the right at the base Cardio: Jugular venous distension: no JVD Rate: regular rate Rhythm: a bnormal rhythm irregularly irregular Heart sounds: S1 normal heart sound present, S2 normal heart sound present, no click, no gallops, Murmur heart sound present systolic mid and no rubs GI: Auscultation: normal bowel sounds Skin: General skin exam: no rashes or lesions noted Neuro: General: patient oriented x3 and no focal motor deficits Extrem: General: Yes no clubbing, cyanosis or edema Objective Labs and Meds 10/14/24 06:36 10/14/24 06:36 Lab results: Laboratory Results - last 24 hr 10/13/24 10/13/24 10/13/24 09:13 09:14 14:03 WBC RBC Hgb Hct MCV MCH MCHC RDW Plt Count MPV Immature Gran % (Auto) Neut % (Auto) Lymph % (Auto) Johnson % (Auto) Eos % (Auto) Baso % (Auto) Lymph # (Auto) Johnson # (Auto) Eos # (Auto) Baso # (Auto) Abs Immat Gran (auto) Absolute Neuts (auto) Absolute Nucleated RBC Nucleated RBC % (auto) Hold Purple Top PT 44.0 H INR 3.8 H D Hold Blue Top Sodium Potassium Chloride Carbon Dioxide Anion Gap BUN Creatinine Estim Creat Clear Calc Estimated GFR POC Glucose Random Glucose Calcium Magnesium 2.1 Total Bilirubin AST ALT Alkaline Phosphatase Troponin I High Sens 149.7 H* Total Protein Albumin TSH 0.10 L Free T4 1.36 Hold Yellow Top Influenza Type A (PCR) NEGATIVE Influenza Type B (PCR) NEGATIVE RSV RNA Qual (PCR) NEGATIVE SARS-CoV-2 RNA (RT-PCR) NEGATIVE 10/13/24 10/13/24 10/14/24 21:12 22:09 06:36 WBC 8.1 RBC 3.26 L Hgb 11.6 L Hct 34.3 L MCV 105.2 H MCH 35.6 H MCHC 33.8 RDW 13.4 Plt Count 169 MPV 11.0 Immature Gran % (Auto) 0.4 Neut % (Auto) 78.4 H Lymph % (Auto) 12.6 L Johnson % (Auto) 6.7 Eos % (Auto) 1.5 Baso % (Auto) 0.4 Lymph # (Auto) 1.0 L Johnson # (Auto) 0.5 Eos # (Auto) 0.1 Baso # (Auto) 0.0 Abs Immat Gran (auto) 0.03 Absolute Neuts (auto) 6.3 Absolute Nucleated RBC 0.000 Nucleated RBC % (auto) 0.0 Hold Purple Top SEE NOTE PT 37.5 H INR 3.3 H Hold Blue Top SEE NOTE Sodium 143 Potassium 4.2 Chloride 111 H Carbon Dioxide 25 Anion Gap 11 L BUN 26 H Creatinine 1.30 Estim Creat Clear Calc 38.4 Estimated GFR 52 POC Glucose 85 Random Glucose 150 H Calcium 9.0 Magnesium Total Bilirubin 1.3 H AST 26 ALT 21 Alkaline Phosphatase 88 Troponin I High Sens 138.4 H* Total Protein 6.0 L Albumin 3.6 TSH Free T4 Hold Yellow Top See Note Influenza Type A (PCR) Influenza Type B (PCR) RSV RNA Qual (PCR) SARS-CoV-2 RNA (RT-PCR) 10/14/24 07:37 WBC RBC Hgb Hct MCV MCH MCHC RDW Plt Count MPV Immature Gran % (Auto) Neut % (Auto) Lymph % (Auto) Johnson % (Auto) Eos % (Auto) Baso % (Auto) Lymph # (Auto) Johnson # (Auto) Eos # (Auto) Baso # (Auto) Abs Immat Gran (auto) Absolute Neuts (auto) Absolute Nucleated RBC Nucleated RBC % (auto) Hold Purple Top PT INR Hold Blue Top Sodium Potassium Chloride Carbon Dioxide Anion Gap BUN Creatinine Estim Creat Clear Calc Estimated GFR POC Glucose 127 H Random Glucose Calcium Magnesium Total Bilirubin AST ALT Alkaline Phosphatase Troponin I High Sens Total Protein Albumin TSH Free T4 Hold Yellow Top Influenza Type A (PCR) Influenza Type B (PCR) RSV RNA Qual (PCR) SARS-CoV-2 RNA (RT-PCR) Assessment and Plan (1) Elevated troponin: Status: Acute Patient presents with chest pain syndrome but appears to be atypical with more pleuritic nature with elevated troponins. Acute coronary syndrome is likely given his age although he had nonobstructive CAD by cardiac catheterization few years ago. Will obtain the records although still possible that this could represent a primary event. This is difficult to a certain patient does not have any symptoms at current rest. EKG shows anterolateral infarct pattern. Will obtain echocardiogram. I would continue to manage his blood pressure aggressively. Rate is adequately control, uptitrate amlodipine therapy. Can also use nitro paste. Would hold off on IV heparin given that he is on warfarin therapy. Further treatment and management based on the findings of echocardiogram. He is otherwise in great physical shape and would not withhold invasive therapy if needed. Other possibility includes myopericarditis although he has no clear preceding viral syndrome or symptoms that would suggest that he would have myopericarditis. Echocardiogram as above. (2) CHF exacerbation: Status: Acute Patient with CHF exacerbation given his elevated BNP compared to baseline with clinical findings consistent with crackles in his right lung. Continue IV diuresis. Strict intake and output chart needs to be pursued. Continue aggressive blood pressure control. Echocardiogram as above to further guide treatment. (3) Atrial fibrillation: Status: Acute Known chronic atrial fibrillation, currently rate controlled. Will continue monitor full disclosure cardiac telemetry. Hold off on beta-blockers as rate control without any rate lowering therapy. Currently on warfarin therapy for anticoagulation. Continue the same. Target INR between 2 and 3. Will follow with you Procedures Date of Service Date of Service: 10/14/24
--- NOTE | 2024-10-14 10:21 | MHC.CM.PN ---
CM met with Patient and his Daughter, at bedside, and addressed IMM with him, providing Patient with the original and a copy has been placed on the chart.Patient lives alone in an apartment and he required no services nor DME [employer]. Home self care vs new VNA(CHF) is the tentative plan and CM has initiated and will follow for dc planning. PCP is DR. Patrick Muniz and Daughter will transport to home at time of dc.
[2024-10-14 11:12] LABS: Glucose, Whole Blood 170 mg/dL (60-115)
[2024-10-14] MEDS: Insulin Lispro 100 UNIT/ML 3 ML VIAL SUBCUT ×2 (11:44→20:51)
--- NOTE | 2024-10-14 12:08 | HO.PM.IMPN ---
Subjective Subjective Date of Service: 10/14/24 Interval History: improving Physical Exam Vital Signs: Vital Signs: Last Vital Signs Temp 98.8 F 10/14/24 11:06 Pulse 90 10/14/24 11:06 Resp 16 10/14/24 11:06 BP 152/78 H 10/14/24 11:06 Pulse Ox 96 10/14/24 11:06 O2 Del Method Room Air 10/14/24 11:06 BMI result Body Mass Index 28.6 General: AO X 3, no acute distress Resp: CTA bilateral, no accessory muscles used CVS: S1,S2,RRR GI: soft, non tender, non distended Neuro: motor grossly intact, alert Psych: appropriate affect, appropriate insight Objective Data Active Medications Acetaminophen (Acetaminophen 325 Mg Tablet) 650 mg PO Q6H PRN PRN Reason: Pain, Mild 1-3,fever,headache Albuterol/Ipratropium (Albuterol/Iprat 2.5/0.5mg 3 Ml Ampul.Neb) 3 ml INHALE Q4H PRN PRN Reason: Shortness of Breath/Wheezing Amlodipine Besylate (Amlodipine Besylate 2.5 Mg Tablet) 2.5 mg PO DAILY [facility]; Protocol Last Admin: 10/14/24 09:46 Dose: 2.5 mg Documented By: BEVERLY Ascorbic Acid (Ascorbic Acid 500 Mg Tablet) 500 mg PO DAILY [facility] Last Admin: 10/14/24 09:46 Dose: 500 mg Documented By: BEVERLY Bumetanide (Bumetanide 1 Mg/4 Ml Vial) 1 mg IVPUSH DAILY [facility]; Protocol Last Admin: 10/14/24 09:47 Dose: 1 mg Documented By: BEVERLY Calcium Carbonate (Calcium Carbonate 750 Mg Tab.Chew) 750 mg PO Q4H PRN PRN Reason: Heartburn Dextrose (Dextrose 50 % 25 Gm/50 Ml Syringe) 25 gm IVPUSH Q15M PRN; Protocol PRN Reason: per Hypoglycemia Standing Ord. Glucose (Glucose Gel 15 Gm Gel..Gram.) 15 gm PO Q15M PRN; Protocol PRN Reason: per Hypoglycemia Standing Ord. Insulin Human Lispro (Insulin Lispro 100 Unit/Ml 3 Ml Vial) 0 unit SUBCUT QIDACHS [facility]; Protocol Last Admin: 10/14/24 11:44 Dose: 2 unit Documented By: BEVERLY Levothyroxine Sodium (Levothyroxine Sodium 125 Mcg Tablet) 125 mcg PO DAILY@0600 [facility] Last Admin: 10/14/24 05:50 Dose: 125 mcg Documented By: SLOAN Lisinopril (Lisinopril 5 Mg Tablet) 5 mg PO DAILY [facility]; Protocol Last Admin: 10/14/24 09:46 Dose: 5 mg Documented By: BEVERLY Magnesium Hydroxide (Milk Of Magnesia 30 Ml Oral.Susp) 30 ml PO DAILY PRN PRN Reason: Constipation Meclizine HCl (Meclizine Hcl 12.5 Mg Tablet) 12.5 mg PO Q8H PRN PRN Reason: Vertigo Melatonin (Melatonin 3 Mg Tablet) 6 mg PO BEDTIME PRN PRN Reason: Insomnia Multivitamins/Vitamin C (Multivitamin Tablet) 1 tab PO DAILY [facility] Last Admin: 10/14/24 09:46 Dose: 1 tab Documented By: BEVERLY Omeprazole (Omeprazole 20 Mg Capsule.Dr) 20 mg PO DAILY@0630 [facility] Last Admin: 10/14/24 05:50 Dose: 20 mg Documented By: SLOAN Ondansetron HCl (Ondansetron Hcl 4 Mg/2 Ml Vial) 4 mg IVPUSH Q8H PRN PRN Reason: Nausea and Vomiting Polyethylene Glycol (Polyethylene Glycol 3350 17 Gm Powd.Pack) 17 gm PO DAILY PRN PRN Reason: Constipation Pravastatin Sodium (Pravastatin Sodium 40 Mg Tablet) 40 mg PO DAILY [facility] Last Admin: 10/14/24 09:46 Dose: 40 mg Documented By: BEVERLY Saliva Substitute (Dry Mouth [place] 60 Ml [place]) 1 spray MUCOUS MEM Q2H PRN PRN Reason: Dry Mouth Senna (Sennosides 8.6 Mg Tablet) 17.2 mg PO BEDTIME [facility] Last Admin: 10/13/24 22:14 Dose: 17.2 mg Documented By: MONTEIR Sodium Chloride (0.9 % Sodium Chloride Flush 3 Ml Syringe) 3 ml IVFLUSH QSHIFT [facility] Last Admin: 10/14/24 09:47 Dose: 3 ml Documented By: BEVERLY Labs 10/14/24 06:36 10/14/24 06:36 Labs: Laboratory Results - last 24 hr 10/13/24 10/13/24 10/13/24 09:13 14:03 21:12 MCV MCH MCHC RDW Plt Count MPV Immature Gran % (Auto) Neut % (Auto) Lymph % (Auto) [place] % (Auto) Eos % (Auto) Baso % (Auto) Lymph # (Auto) [place] # (Auto) Eos # (Auto) Baso # (Auto) Abs Immat Gran (auto) Absolute Neuts (auto) Absolute Nucleated RBC Nucleated RBC % (auto) Hold Purple Top SEE NOTE PT 44.0 H INR 3.8 H D Hold Blue Top SEE NOTE Anion Gap Estim Creat Clear Calc Estimated GFR POC Glucose Random Glucose Calcium Magnesium 2.1 Total Bilirubin AST ALT Alkaline Phosphatase Troponin I High Sens 149.7 H* 138.4 H* Total Protein Albumin TSH 0.10 L Free T4 1.36 Hold Yellow Top See Note 10/13/24 10/14/24 10/14/24 22:09 06:36 07:37 MCV 105.2 H MCH 35.6 H MCHC 33.8 RDW 13.4 Plt Count 169 MPV 11.0 Immature Gran % (Auto) 0.4 Neut % (Auto) 78.4 H Lymph % (Auto) 12.6 L [place] % (Auto) 6.7 Eos % (Auto) 1.5 Baso % (Auto) 0.4 Lymph # (Auto) 1.0 L [place] # (Auto) 0.5 Eos # (Auto) 0.1 Baso # (Auto) 0.0 Abs Immat Gran (auto) 0.03 Absolute Neuts (auto) 6.3 Absolute Nucleated RBC 0.000 Nucleated RBC % (auto) 0.0 Hold Purple Top PT 37.5 H INR 3.3 H Hold Blue Top Anion Gap 11 L Estim Creat Clear Calc 38.4 Estimated GFR 52 POC Glucose 85 127 H Random Glucose 150 H Calcium 9.0 Magnesium Total Bilirubin 1.3 H AST 26 ALT 21 Alkaline Phosphatase 88 Troponin I High Sens Total Protein 6.0 L Albumin 3.6 TSH Free T4 Hold Yellow Top 10/14/24 11:05 MCV MCH MCHC RDW Plt Count MPV Immature Gran % (Auto) Neut % (Auto) Lymph % (Auto) [place] % (Auto) Eos % (Auto) Baso % (Auto) Lymph # (Auto) [place] # (Auto) Eos # (Auto) Baso # (Auto) Abs Immat Gran (auto) Absolute Neuts (auto) Absolute Nucleated RBC Nucleated RBC % (auto) Hold Purple Top PT INR Hold Blue Top Anion Gap Estim Creat Clear Calc Estimated GFR POC Glucose 170 H Random Glucose Calcium Magnesium Total Bilirubin AST ALT Alkaline Phosphatase Troponin I High Sens Total Protein Albumin TSH Free T4 Hold Yellow Top Assessment and Plan (1) Heart failure: Status: Acute Plan 89M PMH dm, hfpef, mod , pafib on coumadin, htn, sialadenitis, hypothyroid, hld, cushings, bph presented wiht chest pain and sob Acute on chronic diastolic CHF Continue IV Bumex, follow up echo check crp esr cardio following mod pericardial effusion check echo pafib coumadin, inr htn increase amlodipnie to 5mg daily can use nitro as needed dm insulin dvt prophylaxis - coumadin full code reason for continued hospitalization:echo Quality Stroke Does the patient have a stroke diagnosis?: No Reason for No Anti-thrombotic by Day Two: Contraindicated (elevated INR) VTE Prior VTE?: No VTE Risk Level:: Medical - moderate - high VTE Device Contraindication: N/A - Device Ordered VTE Drug Contraindication: Treatment Not Indicated (INR 3.8)
[2024-10-14 13:42] LABS: Appearance Urine Clear; Color Urine Yellow; Glucose Urine UA Negative (Negative); Leukocyte Esterase Urine Negative (Negative); Nitrite Urine Negative (Negative); UMIC TRIGGER UA YES; Urine Blood Small (1+) (Negative); Urine Ketones Negative (Negative); Urine Protein Negative (Neg-Trace)
[2024-10-14 13:51] LABS: Bacteria Urine None Seen (None Seen); Hyaline Casts Urine 0-2 /LPF (0-2); RBC Urine 0-2 /HPF (0-2); Squamous Epithelial Cell Urine 0-2 /HPF (0-2); WBC Urine 0-5 /HPF (0-5)
[2024-10-14 16:20] LABS: Glucose, Whole Blood 109 mg/dL (60-115)
[2024-10-14 20:25] LABS: Glucose, Whole Blood 156 mg/dL (60-115)
[2024-10-14] MEDS: Sennosides 8.6 MG TABLET 17.2 MG PO (20:51)
[2024-10-15] VITALS (11 sets, daily range): BP systolic 101–149; BP diastolic 54–78; PULSE 65–98; RESP 16–20; TEMP 36.1–37.1; O2SAT 93–99; BMI 27.5
[2024-10-15] MEDS: Omeprazole 20 MG CAPSULE.DR PO (05:29)
[2024-10-15] MEDS: Levothyroxine Sodium 125 MCG TABLET PO (05:29)
[2024-10-15 07:03] LABS: INTERNATIONAL NORM RATIO 2.3 (0.9-1.1); Prothrombin Time 25.9 SEC (10.9-12.4)
[2024-10-15 07:08] LABS: Alanine Aminotransferase 20 U/L (0-40); Albumin Level 3.6 g/dL (3.5-5.0); Alkaline Phosphatase 88 U/L (39-117); Anion Gap 13 (12-20); Aspartate Amino Transferase 29 U/L (5-37); Bilirubin Direct 0.6 mg/dL (0.0-0.5); Bilirubin Total 1.3 mg/dL (0.0-1.0); Blood Urea Nitrogen 30 mg/dL (9-16); C Reactive Protein 8.43 mg/dL (< or = 0.50); Calcium 9.5 mg/dL (8.4-10.2); Carbon Dioxide 26 mmol/L (22-29); Chloride 108 mmol/L (96-108); Creatinine Clr Calc Pharmacy 35.2; Estimated Glomerular Filt Rate 48; Glucose Random 103 mg/dL (60-115); Potassium 3.9 mmol/L (3.3-5.1); Sodium 143 mmol/L (135-145); Total Protein 6.1 g/dL (6.5-8.0)
[2024-10-15 07:15] LABS: Hematocrit 34.4 % (42.0-52.0); Hemoglobin 11.8 g/dl (14.0-18.0); Mean Corpuscular HGB Conc 34.3 g/dl (31.0-36.0); Mean Corpuscular Hemoglobin 35.6 pg (27.0-33.0); Mean Corpuscular Volume 103.9 fL (80.0-98.0); Mean Platelet Volume 10.8 fL (9.4-12.4); Platelet Count 197 X10*3/uL (160-400); Red Blood Count 3.31 X10*6/uL (4.60-5.80); Red Cell Distribution Width 13.2 % (11.0-16.0); White Blood Count 7.5 X10*3/uL (4.8-10.8)
[2024-10-15 07:26] LABS: Glucose, Whole Blood 117 mg/dL (60-115)
[2024-10-15 07:55] LABS: Erythrocyte Sedimentation Rate 34 MM/HR (0-15)
[2024-10-15] MEDS: amLODIPine Besylate 5 MG TABLET PO (09:15)
[2024-10-15] MEDS: Bumetanide 1 MG/4 ML VIAL IVPUSH (09:15)
[2024-10-15] MEDS: Pravastatin Sodium 40 MG TABLET PO (09:15)
[2024-10-15] MEDS: Ascorbic Acid 500 MG TABLET PO (09:15)
[2024-10-15] MEDS: lisinopriL 5 MG TABLET PO (09:15)
[2024-10-15] MEDS: Multivitamin TABLET 1 TAB PO (09:15)
[2024-10-15] MEDS: 0.9 % Sodium Chloride Flush 3 ML SYRINGE IVFLUSH (09:16)
--- NOTE | 2024-10-15 10:15 | P.DS_ITS ---
DS: Providers Provider Date of Service: 10/15/24 Date of admission: 10/13/24 15:32 Date of discharge: 10/15/24 Primary care physician: Patrick Muniz MD Consults: 10/13/24 19:42 Consult to Cardiology Routine Consulting Provider: [facility] [place] Reason for consultation: CHF, moderate pericardial effusion, INR 3.8 DS: Diagnosis Discharge Diagnosis (1) Heart failure: Status: Acute DS: Summary Hospital Course Hospital Course: from initial hpi: 89-year-old male with past medical history maf-[id number] diabetes, HFpEF, moderate aortic stenosis, AFib on Coumadin, hearing loss, hypertension, sialadenitis, erectile dysfunction last used Cialis 3 months prior, hyperlipidemia, hypothyroidism, Jayy's disease, BPH drove self to the emergency room with complaints of overnight shortness of breath and oral dryness with stones in throat making swallowing difficult. Patient denies any chest pain, abdominal pain, nausea, vomiting, diarrhea or constipation. Patient also mentions that he is being worked up by his primary care physician for vertigo. Patient has an outpatient referral to ear nose and throat but has not yet seen the specialist. Patient was started on meclizine by his PCP with no improvement in his sporadic symptoms. Unable to illicit nystagmus or dizziness here in the ED. No abnormal normal findings on otic exam. Bedside ultrasound was performed in the emergency department and noted moderate pericardial effusion with no evidence of tamponade. B lines also present indicative of pulmonary edema. EKG indicated atrial fibrillation with a heart rate of 66, QTC 448 uncorrected. Patient received 0.5 Bumex IV x1 in the ED. Patient currently on room air. Patient does not use oxygen at home. Chest x- ray notes a significantly elevated right hemidiaphragm with stable calcified granuloma in the left upper lung. Chest x-ray negative for effusions, consolidations or opacities. No pneumothorax or pleural effusion identified. Radiologist notes stable chronic changes with no acute findings. Patient has a mild leukocytosis, no fever or chills reported. No change in H&H indicating acute anemia. BNP 1114. Troponins 150, then 149.7. hospital course: Patient was admitted for acute on chronic systolic and diastolic CHF. Was treated with IV Bumex and diuresed well with resolution of symptoms. Echocard iogram showed EF of 45-50% with grade 3 diastolic dysfunction, mildly reduced RV systolic function, severely dilated left atrium, moderate with paradoxical low-flow, [id number] mitral regurg, mild elevated right ventricular systolic pressure, small pericardial effusion without tamponade. For hypertension recommendations were to increase amlodipine to 5 mg daily and blood pressure became better controlled. For paroxysmal AFib was continued on Coumadin. For diabetes continued on insulin. patient was seen by cardiology who recommended transfer to [facility] [place] for cadiac cath. Time Attestation Discharge Coordination Time (in mins): 34 Quality: Safe Use of Opioids Does Pt have an Active Cancer Diagnosis on the Problem List?: No Quality: Stroke Does the patient have a stroke diagnosis?: No Physical Exam Vital Signs: Vital Signs: Last Vital Signs Temp 98.1 F 10/15/24 07:16 Pulse 72 10/15/24 07:16 Resp 18 10/15/24 07:16 BP 137/78 10/15/24 07:16 Pulse Ox 97 10/15/24 07:16 O2 Del Method Room Air 10/15/24 07:16 BMI result Body Mass Index 27.5 General: AO X 3, no acute distress Resp: CTA bilateral, no accessory muscles used CVS: S1,S2,RRR GI: soft, non tender, non distended Neuro: motor grossly intact, alert Psych: appropriate affect, appropriate insight DS: Data Data Completed and Pending Labs on day of discharge: Laboratory Results - last 24 hr 10/14/24 10/14/24 10/14/24 11:05 13:20 16:15 WBC RBC Hgb Hct MCV MCH MCHC RDW Plt Count MPV Absolute Nucleated RBC Nucleated RBC % (auto) ESR PT INR Sodium Potassium Chloride Carbon Dioxide Anion Gap BUN Creatinine Estim Creat Clear Calc Estimated GFR POC Glucose 170 H 109 Random Glucose Calcium Magnesium Total Bilirubin Direct Bilirubin AST ALT Alkaline Phosphatase C-Reactive Protein Total Protein Albumin Urine Color Yellow Urine Appearance Clear Urine pH 5.0 Ur Specific [place] 1.010 Urine Protein Negative Urine Glucose (UA) Negative Urine Ketones Negative Urine Blood Small (1+) H Urine Nitrite Negative Ur Leukocyte Esterase Negative Urine RBC 0-2 Urine WBC 0-5 Ur Squamous Epith Cells 0-2 Urine Bacteria None Seen Hyaline Casts 0-2 10/14/24 10/15/24 10/15/24 20:21 06:36 06:41 WBC 7.5 RBC 3.31 L Hgb 11.8 L Hct 34.4 L MCV 103.9 H MCH 35.6 H MCHC 34.3 RDW 13.2 Plt Count 197 MPV 10.8 Absolute Nucleated RBC 0.000 Nucleated RBC % (auto) 0.0 ESR 34 H PT 25.9 H D INR 2.3 H Sodium 143 Potassium 3.9 Chloride 108 Carbon Dioxide 26 Anion Gap 13 BUN 30 H Creatinine 1.39 Estim Creat Clear Calc 35.2 Estimated GFR 48 POC Glucose 156 H Random Glucose 103 Calcium 9.5 Magnesium 2.0 Total Bilirubin 1.3 H Direct Bilirubin 0.6 H AST 29 ALT 20 Alkaline Phosphatase 88 C-Reactive Protein 8.43 H Total Protein 6.1 L Albumin 3.6 Urine Color Urine Appearance Urine pH Ur Specific [place] Urine Protein Urine Glucose (UA) Urine Ketones Urine Blood Urine Nitrite Ur Leukocyte Esterase Urine RBC Urine WBC Ur Squamous Epith Cells Urine Bacteria Hyaline Casts 10/15/24 07:17 WBC RBC Hgb Hct MCV MCH MCHC RDW Plt Count MPV Absolute Nucleated RBC Nucleated RBC % (auto) ESR PT INR Sodium Potassium Chloride Carbon Dioxide Anion Gap BUN Creatinine Estim Creat Clear Calc Estimated GFR POC Glucose 117 H Random Glucose Calcium Magnesium Total Bilirubin Direct Bilirubin AST ALT Alkaline Phosphatase C-Reactive Protein Total Protein Albumin Urine Color Urine Appearance Urine pH Ur Specific [place] Urine Protein Urine Glucose (UA) Urine Ketones Urine Blood Urine Nitrite Ur Leukocyte Esterase Urine RBC Urine WBC Ur Squamous Epith Cells Urine Bacteria Hyaline Casts Discharge Plan Discharge Anticipated Discharge Date/Time: 10/15/24 10:13 Patient Disposition: Xfer Acute Care Hospital Discharge Diagnosis: chf, cad, as Referrals: Patrick Muniz MD [Primary Care Provider] - 1 Week Discharge Medications: New amlodipine 5 mg Tablet 5 mg PO DAILY Qty: 90 0RF Protocol: Hold for SBP< HOLD for SBP < : 90 Continued (DME) lancets Misc See Rx Instructions .Route Qty: 200 3RF Rx Instructions: One Touch Ultra Test Strips As directed to test blood sugar twice a day. Ninety day supply glipizide 2.5 mg tablet extended release 24hr 2.5 mg PO DAILY 90 Days Qty: 90 2RF lisinopril 5 mg tablet 5 mg PO DAILY 90 Days Qty: 90 1RF meclizine 12.5 mg tablet 12.5 mg PO BID-QID PRN (Reason: dizziness) 15 Days Qty: 30 0RF pravastatin 40 mg tablet 40 mg PO DAILY Qty: 90 0RF ascorbic acid (vitamin C) [Vitamin C] 500 mg Tablet 500 mg PO DAILY Multivitamin 50 Plus Tablet 1 tab PO DAILY levothyroxine 125 mcg tablet 125 mcg PO DAILY@0600 warfarin 2 mg tablet 4 mg PO DAILY@1800 Protocol: Dose Management Condition: Sunday (Week One) Dose/Route: 2 mg Instruction: 1 x 2 mg tablet Condition: Sunday Dose/Route: 4 mg Instruction: 2 x 2 mg tablets Condition: Sunday Dose/Route: 4 mg Instruction: 2 x 2 mg tablets Condition: Sunday Dose/Route: 4 mg Instruction: 2 x 2 mg tablets Condition: Dose/Route: 4 mg Instruction: 2 x 2 mg tablets Condition: Sunday Dose/Route: 4 mg Instruction: 2 x 2 mg tablets Condition: Sunday Dose/Route: 4 mg Instruction: 2 x 2 mg tablets Condition: Sunday (Week Two) Dose/Route: 2 mg Instruction: 1 x 2 mg tablet Condition: Sunday Dose/Route: 4 mg Instruction: 2 x 2 mg tablets Condition: Sunday Dose/Route: 4 mg Instruction: 2 x 2 mg tablets Condition: Sunday Dose/Route: 4 mg Instruction: 2 x 2 mg tablets Condition: Dose/Route: 4 mg Instruction: 2 x 2 mg tablets Condition: Sunday Dose/Route: 4 mg Instruction: 2 x 2 mg tablets Condition: Sunday Dose/Route: 4 mg Instruction: 2 x 2 mg tablets Protocol Text: Adjustment Start Date: Sunday09/23/24 INR Value: 3.1 INR Date: 09/23/24 Recheck Date: 10/14/24 bumetanide 1 mg tablet 1 mg PO Q48H Rx Instructions: Pt is on 1 tab every other day. (DME) blood sugar diagnostic Strip See Rx Instructions .ROUTE BID Qty: 10 Rx Instructions: As directed (DME) lancets [OneTouch UltraSoft 2 Lancet] 30 gauge misc See Rx Instructions .ROUTE .MEDSUPPLY Qty: 100 Rx Instructions: As directed Discontinued amlodipine 2.5 mg tablet 2.5 mg PO DAILY 90 Days Qty: 90 3RF Discharge Orders: Discharge Order (Routine); Ordered 10/15/24 Ordered By: Brennen Laboy Diet: Advance to usual diet Activity on Discharge: As tolerated Stand Alone Forms: Patient Portal Discharge page Print Language: Ivorian Care Plan Goals: chf and blood pressure control, rule out cad Health Concerns: chf, htn Plan of Treatment: increased amlodipine to 5mg daily, [place] [facility] [place] Assessment: see above
--- NOTE | 2024-10-15 10:24 | MHC.CM.PN ---
Addendum entered by Poly Calvillo 10/16/24 07:43: Plan now appears to be a transfer to [facility]. Original Note: Patient has been medically cleared for dc to home today, self care. Last IMM was addressed yesterday.
[2024-10-15 11:43] LABS: Glucose, Whole Blood 132 mg/dL (60-115)
--- NOTE | 2024-10-15 11:44 | P.PNCA_ITS ---
Subjective Subjective Date of Service: 10/15/24 Principal diagnosis: Elevated troponin, CHF Interval history: Patient is feeling better. He is negative balance of about a L. His shortness of breath have improved. He is not complaining of any other chest discomfort. His echocardiogram yesterday showed mild reduction of LV ejection fraction with grade 3 diastolic dysfunction without any significant regional wall motion abnormality. Low-flow moderate aortic stenosis was noted. Elevated right ventricular systolic pressure right atrial pressures were noted. Review of Systems Constitutional: Reports no additional constitutional complaints Cardiovascular: Denies chest pain, Denies leg edema, Denies lightheadedness, Denies Loss of Consciousness, Denies palpitations and Denies dyspnea Respiratory: Reports no additional respiratory complaints and Denies dyspnea Psychiatric: Reports no additional psychiatric complaints Endocrine: Denies palpitations Physical Exam Vital Signs: Last Vital Signs Temp 98.0 F 10/15/24 11:28 Pulse 86 10/15/24 11:28 Resp 18 10/15/24 11:28 BP 149/75 H 10/15/24 11:28 Pulse Ox 98 10/15/24 11:28 O2 Del Method Room Air 10/15/24 11:28 BMI result Body Mass Index 27.5 Const General: cooperative, comfortable, no acute distress, alert and awake Nutritional Appearance: average body habitus Orientation/consciousness: patient oriented x3 Limitations: no limitations HEENT Head: Yes normocephalic and Yes atraumatic Neck Neck: Yes trachea midline, Yes supple and Yes no JVD Resp Effort & Inspection: normal respiratory effort Auscultation: crackles on the right at the base Cardio Jugular venous distension: no JVD Rate: regular rate Rhythm: abnormal rhythm irregularly irregular Heart sounds: S1 normal heart sound present, S2 normal heart sound present, no click, no gallops, Murmur heart sound present systolic mid and no rubs GI Auscultation: normal bowel sounds Skin General skin exam: no rashes or lesions noted Neuro General: patient oriented x3 and no focal motor deficits Extrem General: Yes no clubbing, cyanosis or edema Objective Labs and Meds 10/15/24 06:36 10/15/24 06:41 Lab results: Laboratory Results - last 24 hr 10/14/24 10/14/24 10/14/24 13:20 16:15 20:21 WBC RBC Hgb Hct MCV MCH MCHC RDW Plt Count MPV Absolute Nucleated RBC Nucleated RBC % (auto) ESR PT INR Sodium Potassium Chloride Carbon Dioxide Anion Gap BUN Creatinine Estim Creat Clear Calc Estimated GFR POC Glucose 109 156 H Random Glucose Calcium Magnesium Total Bilirubin Direct Bilirubin AST ALT Alkaline Phosphatase C-Reactive Protein Total Protein Albumin Urine Color Yellow Urine Appearance Clear Urine pH 5.0 Ur Specific [place] 1.010 Urine Protein Negative Urine Glucose (UA) Negative Urine Ketones Negative Urine Blood Small (1+) H Urine Nitrite Negative Ur Leukocyte Esterase Negative Urine RBC 0-2 Urine WBC 0-5 Ur Squamous Epith Cells 0-2 Urine Bacteria None Seen Hyaline Casts 0-2 10/15/24 10/15/24 10/15/24 06:36 06:41 07:17 WBC 7.5 RBC 3.31 L Hgb 11.8 L Hct 34.4 L MCV 103.9 H MCH 35.6 H MCHC 34.3 RDW 13.2 Plt Count 197 MPV 10.8 Absolute Nucleated RBC 0.000 Nucleated RBC % (auto) 0.0 ESR 34 H PT 25.9 H D INR 2.3 H Sodium 143 Potassium 3.9 Chloride 108 Carbon Dioxide 26 Anion Gap 13 BUN 30 H Creatinine 1.39 Estim Creat Clear Calc 35.2 Estimated GFR 48 POC Glucose 117 H Random Glucose 103 Calcium 9.5 Magnesium 2.0 Total Bilirubin 1.3 H Direct Bilirubin 0.6 H AST 29 ALT 20 Alkaline Phosphatase 88 C-Reactive Protein 8.43 H Total Protein 6.1 L Albumin 3.6 Urine Color Urine Appearance Urine pH Ur Specific [place] Urine Protein Urine Glucose (UA) Urine Ketones Urine Blood Urine Nitrite Ur Leukocyte Esterase Urine RBC Urine WBC Ur Squamous Epith Cells Urine Bacteria Hyaline Casts 10/15/24 11:39 WBC RBC Hgb Hct MCV MCH MCHC RDW Plt Count MPV Absolute Nucleated RBC Nucleated RBC % (auto) ESR PT INR Sodium Potassium Chloride Carbon Dioxide Anion Gap BUN Creatinine Estim Creat Clear Calc Estimated GFR POC Glucose 132 H Random Glucose Calcium Magnesium Total Bilirubin Direct Bilirubin AST ALT Alkaline Phosphatase C-Reactive Protein Total Protein Albumin Urine Color Urine Appearance Urine pH Ur Specific [place] Urine Protein Urine Glucose (UA) Urine Ketones Urine Blood Urine Nitrite Ur Leukocyte Esterase Urine RBC Urine WBC Ur Squamous Epith Cells Urine Bacteria Hyaline Casts Progress Note: A&P Assessment and plan (1) CHF exacerbation: Status: Acute Assessment and Plan: Congestive heart failure decompensated with patient's prior history of heart failure with much improved with therapy. Noted reduction LV ejection fraction unclear etiology. Question myocarditis question new coronary lesion as he presented with chest pain with elevated troponin this is likely as well. Also possibility of myocarditis is likely. Would suggest a cardiac catheterization to evaluate for coronary anatomy. Discussed with patient and patient's daughter at bedside to further help with management of his acute presentation. He also has moderate aortic stenosis, paradoxical low-flow which I do not think is contributing to his heart failure syndrome. Hold warfarin today. Arrangements being made for cardiac catheterization to [facility]. Will follow as outpatient. Time Spent With Patient Time: Total time managing care of this patient today ____ minutes. Progress Note: Quality Stroke Does the patient have a stroke diagnosis?: No Reason for No Anti-thrombotic by Day Two: Contraindicated (elevated INR) Procedures Date of Service Date of Service: 10/15/24
[2024-10-15 16:48] LABS: Glucose, Whole Blood 136 mg/dL (60-115)
[2024-10-15 20:49] LABS: Glucose, Whole Blood 150 mg/dL (60-115)
[2024-10-16 04:00] VITALS: BP 109/63; PULSE 80; RESP 16; TEMP 36.2; O2SAT 100
[2024-10-16 06:00] VITALS: BMI 27.1
[2024-10-16] MEDS: Omeprazole 20 MG CAPSULE.DR PO (06:32)
[2024-10-16] MEDS: Levothyroxine Sodium 125 MCG TABLET PO (06:32)
[2024-10-16 07:26] LABS: INTERNATIONAL NORM RATIO 1.7 (0.9-1.1); Prothrombin Time 19.5 SEC (10.9-12.4)
[2024-10-16 07:28] LABS: Glucose, Whole Blood 122 mg/dL (60-115)
[2024-10-16 08:00] VITALS: BP 130/69; PULSE 75; RESP 18; TEMP 36.1; O2SAT 98
[2024-10-16] MEDS: Pravastatin Sodium 40 MG TABLET PO (09:52)
[2024-10-16] MEDS: 0.9 % Sodium Chloride Flush 3 ML SYRINGE IVFLUSH ×2 (09:53→16:55)
[2024-10-16] MEDS: lisinopriL 5 MG TABLET PO (09:53)
[2024-10-16] MEDS: amLODIPine Besylate 5 MG TABLET PO (09:53)
[2024-10-16] MEDS: Ascorbic Acid 500 MG TABLET PO (09:53)
[2024-10-16] MEDS: Bumetanide 1 MG/4 ML VIAL IVPUSH (09:53)
[2024-10-16] MEDS: Multivitamin TABLET 1 TAB PO (09:53)
--- NOTE | 2024-10-16 09:59 | PM.PNCARD ---
Subjective Subjective Date of Service: 10/16/24 Principal diagnosis: Elevated troponin, CHF Interval history: Patient still says that he has mild chest discomfort when takes a deep breath. No exertional chest pain. No shortness of breath. Feels very comfortable. Hemodynamically stable. Review of Systems Constitutional: Reports no additional constitutional complaints Reports system reviewed and no additional complaints, except as documented Cardiovascular: Reports chest pain at rest, Denies leg edema, Denies lightheadedness, Denies Loss of Consciousness and Reports dyspnea on exertion Respiratory: Reports pain on inspiration and Reports dyspnea on exertion Gastrointestinal: Reports no additional gastrointestinal complaints Physical Exam Vital Signs: Last Vital Signs Temp 97.0 F 10/16/24 08:00 Pulse 75 10/16/24 08:00 Resp 18 10/16/24 08:00 BP 130/69 10/16/24 08:00 Pulse Ox 98 10/16/24 08:00 O2 Del Method Room Air 10/16/24 08:00 BMI result Body Mass Index 27.1 Const General: cooperative, comfortable, no acute distress, alert and awake Nutritional Appearance: average body habitus Orientation/consciousness: patient oriented x3 Limitations: no limitations HEENT Head: Yes normocephalic and Yes atraumatic Neck Neck: Yes trachea midline, Yes supple and Yes no JVD Resp Effort & Inspection: normal respiratory effort Auscultation: crackles on the right at the base Cardio Jugular venous distension: no JVD Rate: regular rate Rhythm: abnormal rhythm irregularly irregular Heart sounds: S1 normal heart sound present, S2 normal heart sound present, no click, no gallops, Murmur heart sound present systolic mid and no rubs GI Auscultation: normal bowel sounds Skin General skin exam: no rashes or lesions noted Neuro General: patient oriented x3 and no focal motor deficits Extrem General: Yes no clubbing, cyanosis or edema Objective Labs and Meds 10/15/24 06:36 10/15/24 06:41 Lab results: Laboratory Results - last 24 hr 10/15/24 10/15/24 10/15/24 11:39 16:20 20:44 Hold Purple Top PT INR POC Glucose 132 H 136 H 150 H 10/16/24 10/16/24 06:50 07:17 Hold Purple Top SEE NOTE PT 19.5 H D INR 1.7 H POC Glucose 122 H Progress Note: A&P Assessment and plan (1) CHF exacerbation: Status: Acute Assessment and Plan: CHF exacerbation this elderly gentleman with elevated troponins. Plaque rupture and acute coronary syndrome with likely although more likely that this is suggestive of possible myocarditis. At this point time he appears euvolemic and well compensated. Continue oral diuretics. Off IV heparin at this point time. Discussed with him in his daughter yesterday given his reduction LV EF to pursue cardiac catheterization. He is a very active gentleman. The risks and benefits of cardiac catheterization were discussed. They understand agree. Patient awaiting a bed at [facility]. Continue current medications including aspirin and statins. Will sign of the case. Thank you for allowing me to partake in his care Time Spent With Patient Time: Total time managing care of this patient today ____ minutes. Progress Note: Quality Stroke Does the patient have a stroke diagnosis?: No Reason for No Anti-thrombotic by Day Two: Contraindicated (elevated INR) Procedures Date of Service Date of Service: 10/16/24
[2024-10-16 10:28] VITALS: BMI 27.1
[2024-10-16 11:06] LABS: Glucose, Whole Blood 154 mg/dL (60-115)
[2024-10-16 11:11] VITALS: BP 132/68; PULSE 82; RESP 18; TEMP 36.1; O2SAT 99
[2024-10-16] MEDS: Insulin Lispro 100 UNIT/ML 3 ML VIAL SUBCUT ×2 (12:18→16:53)
[2024-10-16 14:00] VITALS: BP 112/61; PULSE 75
[2024-10-16 14:54] VITALS: BP 125/71; PULSE 84
[2024-10-16 14:55] VITALS: BP 102/59; PULSE 90
[2024-10-16 15:59] LABS: Glucose, Whole Blood 169 mg/dL (60-115)
== END 2024-10-16 17:59 | disposition short-term general hospital (02) | DRG 291 ==
LOC: HO.ED 15:33 → HO.EDOVER 16:49 → HO.IMC 19:27
PROVIDERS: Nurse Practitioner Family; Registered Nurse Emergency; Student in an Organized Health Care Education/Training Program; Admitting Provider Internal Medicine; Emergency Provider Emergency Medicine; PCP Family Medicine; Visit Provider Internal Medicine
DX: I11.0 Hypertensive heart disease with heart failure (principal); I50.43 Acute on chronic combined systolic (congestive) and diastolic (congestive) heart failure; I31.39 Other pericardial effusion (noninflammatory); I25.10 Atherosclerotic heart disease of native coronary artery without angina pectoris; E11.9 Type 2 diabetes mellitus without complications; I35.0 Nonrheumatic aortic (valve) stenosis; R79.1 Abnormal coagulation profile; I48.0 Paroxysmal atrial fibrillation; I34.0 Nonrheumatic mitral (valve) insufficiency; K11.20 Sialoadenitis, unspecified; E03.9 Hypothyroidism, unspecified; Z20.822 Contact with and (suspected) exposure to COVID-19; Z95.5 Presence of coronary angioplasty implant and graft; Z87.891 Personal history of nicotine dependence; Z79.01 Long term (current) use of anticoagulants; Z79.84 Long term (current) use of oral hypoglycemic drugs; Z79.890 Hormone replacement therapy; Z79.899 Other long term (current) drug therapy
CPT/HCPCS: 0241U; 36415; 71046; 80048; 80053; 80076; 81001; 82947; 83735; 83880; 84439; 84443; 84484; 85025; 85027; 85610; 85652; 86140; 93005; 93306; 99285; J1939; Q9957

== ENCOUNTER → 2024-10-13 08:40 | Outpatient (BNV) | payer BC, SELFPAY | PROVIDERS: Emergency Provider Emergency Medicine; PCP Family Medicine; Visit Provider Internal Medicine Cardiovascular Disease | DX: I48.91 Unspecified atrial fibrillation (principal); I25.2 Old myocardial infarction | CPT/HCPCS: 93010 ==

== ENCOUNTER → 2024-10-13 08:40 | Outpatient (BNV) | payer BC, SELFPAY | PROVIDERS: Emergency Provider Emergency Medicine; PCP Family Medicine; Visit Provider Radiology Diagnostic Radiology | DX: R06.00 Dyspnea, unspecified (principal) | CPT/HCPCS: 71046 ==

== ENCOUNTER 2024-10-13 15:32 | Outpatient (BNV) | payer MEDICARE, SELFPAY | END 2024-10-14 07:00 | PROVIDERS: Admitting Provider Internal Medicine; Emergency Provider Emergency Medicine; PCP Family Medicine; Visit Provider Internal Medicine Cardiovascular Disease | DX: I50.30 Unspecified diastolic (congestive) heart failure (principal); I51.7 Cardiomegaly; I35.0 Nonrheumatic aortic (valve) stenosis; I34.0 Nonrheumatic mitral (valve) insufficiency | CPT/HCPCS: 93306 ==

== ENCOUNTER → 2024-10-13 15:32 | Outpatient (BNV) | payer MEDICARE, SELFPAY | PROVIDERS: Admitting Provider Internal Medicine; Emergency Provider Emergency Medicine; PCP Family Medicine; Visit Provider Internal Medicine Cardiovascular Disease | DX: I50.9 Heart failure, unspecified (principal); I48.91 Unspecified atrial fibrillation; R79.89 Other specified abnormal findings of blood chemistry | CPT/HCPCS: 99232; 99233 ==

== ENCOUNTER → 2024-10-13 15:32 | Outpatient (BNV) | payer MEDICARE, SELFPAY | PROVIDERS: Admitting Provider Internal Medicine; Emergency Provider Emergency Medicine; PCP Family Medicine; Visit Provider Nurse Practitioner Family | DX: I50.9 Heart failure, unspecified (principal) | CPT/HCPCS: 99223; 99233; 99239 ==

== ENCOUNTER → 2024-10-16 23:59 | Outpatient (BNV) | payer MEDICARE, SELFPAY | PROVIDERS: PCP Family Medicine; Visit Provider Internal Medicine Cardiovascular Disease | DX: I20.89 Other forms of angina pectoris (principal); R93.1 Abnormal findings on diagnostic imaging of heart and coronary circulation | CPT/HCPCS: 93458; 99152 ==

== ENCOUNTER 2024-10-29 08:57 | Outpatient (AMB) | payer BC, SELFPAY ==
--- OUTSIDE RECORDS SUMMARY | 2024-10-29 04:36 | XMS_ITS | Continuity of Care Document ---
Author Name [facility] Organization [facility] Care Team Providers Care Group Director Name Role Phone DOD-SD Unavailable Unavailable Problems Combined list of problems [...] Benign Prostatic Hypertrophy Without Outflow Obstruction (SCT [id number]) Active 05/07/19 19 Condition May 21, 2018 Entered By: MC DAN Comment: treated with finasteride [facility] Essential hypertension Active 05/07/19 09 Condition [facility] Hearing loss (SNOMED CT 15922823) Active 05/07/19 09 Condition [facility] HLD - Hyperlipidemia Active 05/07/19 09 Condition [facility] Hypothyroidism (SNOMED CT 67629957) Active 05/07/19 09 Condition [facility] Diabetes Mellitus Type 2 (SCT 75186923) Active Condition Apr 17, 2024 Entered By: SKYLAR GREGORY Comment: vet under care of community PCP/ Dr Sheldon Muniz- good glycemic control [facility] History of actinic keratosis Active Condition Feb 08, 2024 Entered By: SKYLAR GREGORY Comment: see tele derm-lesions on right side of face/ vet needs cryotx per derm [facility] Low Back Pain (SCT 396063684) Active Condition Oct 26, 2021 Entered By: [...] DAILY ORAL ACTIVE D'ALESSAN RUBENKERI Galindo [facility] BUMETANIDE 1MG TAB TAKE ONE TABLET BY MOUTH ONCE DAILY ORAL ACTIVE D'ALESSAN KERI MIRANDA 2023 [facility] CARBOXYMETH YLCELLULOSE NA 0.5% SOLN,OPH INSTILL 1 DROP INTO EACH EYE FOUR TIMES A DAY FOR DRY EYE OPHTHA LMIC ACTIVE 12/25/2024 [id number] 4 CHE SOSA EY J 2023 45 [facility] GLIPIZIDE 5MG TAB TAKE ONE-HALF TABLET BY MOUTH ORAL ACTIVE D'ALESSAN RUBENKERI HERMELINDO Josie 2023 [facility] LEVOTHYROXI NE NA 125MCG TAB (SYNTHROID) TAKE ONE TABLET BY MOUTH QD ORAL ACTIVE D'ALESSAN RUBENKERI HERMELINDO Josie 2023 [facility] LISINOPRIL 10MG TAB TAKE ONE TABLET BY MOUTH ONCE DAILY ORAL ACTIVE D'ALESSAN RUBENKERI Galindo 2023 [facility] PRAVASTATIN NA 40MG TAB TAKE ONE TABLET BY MOUTH AT BEDTIME ORAL ACTIVE PRASHANT DAN 2009 [facility] Immunizations Combined list of available immunizations from the Department of Defense and Veterans Affairs facilities. Immunization Series Date Given Administered By Site Reaction Lot Number CVX Code Drug Customer Care Voice Consultant Status Comments Source INFLUENZA, UNSPECIFIED FORMULATION 2023 88 complet ed HISTORICA L INFORMATI ON - SOURCE UNSPECIFI ED, [facility] INFLUENZA, UNSPECIFIED FORMULATION 2021 88 complet ed [facility] COVID-19 (MODERNA), MRNA, LNP-S, PF, 100 MCG OR 50 MCG DOSE 3 2020 207 complet ed MOD; [id number]; 2 [facility] COVID-19 (MODERNA), MRNA, LNP-S, PF, 100 MCG/0.5 ML DOSE 2 2020 207 complet ed MOD; [id number]; 1 [facility] COVID-19 (MODERNA), MRNA, LNP-S, PF, 100 MCG/0.5 ML DOSE 1 2020 207 complet ed MOD; [id number]; 1 [facility] [...] ed received in community flu clinic at [facility] FLU,3 YRS (HISTORICAL) 2008 88 complet ed [facility] PNEUMOCOCCAL, UNSPECIFIED FORMULATION 2003 109 complet ed [facility] Vital Signs Combined list of [...] Disposition Source [facility] OFFICE O/P EST LOW 20-29 MIN [id number] Diagnos is: ICD-10- CM E11.22 Type 2 diabete s mellitu s w diabeti c chronic kidney disease SKYLAR LEMUS 05/03 [facility] HEARING AID REPAIR/MOD IFYING [id number] Diagnos is: ICD-10- CM H90.3 Sensori neural hearing loss, bilater al SENIOR,JOHNSON OLE L 05/24 [facility] En[facility] [id number] 06/01 [facility] OFFICE O/P EST SF 10 MIN [id number] Diagnos is: ICD-10- CM E11.9 Type 2 diabete s mellitu s without complic ations Juan A MACHUCA 06/06 [facility] En[facility] [id number] 09/24 [facility] [id number] 09/24 [facility] En[facility] [id number] 10/22 [facility] Encounter [id number] Diagnos is: ICD-10- CM S46.911 A Strain unsp musc/fa sc/tend at shldr/u p arm, right arm, init CHASE,TRACI CHIEF CARDIOPULMONARY TECHNOLOGIST 10/24 [facility] DETERMINE REFRACTIVE STATE [id number] Diagnos is: ICD-10- CM E11.9 Type 2 diabete s mellitu s without complic ations SOSA,LACE Y J 12/24 [facility] CPTR OPHTH DX IMG POST SEGMT [id number] Diagnos is: ICD-10- CM 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 Diagnos is: ICD-10- CM Z13.89 Encount er for screeni ng for other disorde r DARCIE HAIR ICA A 02/06 [facility] TRIM NAIL(S) [id number] 1. Diagnos is: ICD-10- CM E11.9 Type 2 diabete s mellitu s without complic ations VICENTE MANZANO 02/06 [facility] Outpatient Encounter [id number] Diagnos is: ICD-10- CM L57.0 Actinic keratos is MARY ARIAS PH 02/07 [facility] Outpatient Encounter [id number] 02/07 [facility] Outpatient Encounter [id number] 02/10 [facility] OFFICE O/P EST MOD 30 MIN [id number] Diagnos is: ICD-10- CM E11.9 Type 2 diabete s mellitu s without complic ations Juan AKristopherTALAT SKYLAR MURPHY 04/17 [facility] TRIM NAIL(S) [id number] Diagnos is: ICD-10- CM E11.9 Type 2 diabete s mellitu s without complic ations VICENTE MANZANO GAMALIEL 06/09 [facility] OFFICE O/P NEW MOD 45 MIN [id number] Diagnos is: ICD-10- CM L57.0 Actinic keratos is TERESA ALBRIGHT 08/07 [facility] HEARING AID REPAIR/MOD IFYING [id number] Diagnos is: ICD-10- CM Z46.1 Encount er for fitting and adjustm ent of hearing aid RAYSHAWN SANDHU 08/07 [facility] TRIM NAIL(S) [id number] Diagnos is: ICD-10- CM E11.9 Type 2 diabete s mellitu s without complic ations VICENTE MANZANO GAMALIEL 10/08 [facility] Outpatient Encounter [id number] 10/28 [facility] Outpatient Encounter [id number] 10/28 [facility] Social History Combined list of available smoking, tobacco, and other social history from Department of Defense and Veterans Affairs facilities. Social History Type Response Date Comment Source Tobacco smoking status IAIS VA-TOBACCO NEVER USED OTHER TYPE 04/17/2024 [facility] [place] [facility] History of tobacco use VA-TOBACCO USE FORMER CIGARETTES [facility] [place] [facility] History of tobacco use SD-TOBACCO FORMER USER 05/03/2023 [facility] [place] [facility] History of tobacco use SD-TOBACCO FORMER USER 10/26/2021 [facility] [place] [facility] History of tobacco use SD-TOBACCO FORMER USER 08/19/2020 [facility] [place] [facility] [place] [facility] [place] [facility] History [facility] tobacco use QUIT TOBACCO USE > 7 YEARS AGO 05/09/2017 quit 35 yrs [facility] [place] [facility] History of tobacco use LIFETIME NON-TOBACCO USER 05/09/2016 [facility] [place] [facility] History of tobacco use QUIT TOBACCO USE > 7 YEARS AGO 05/06/2015 pt states he stopped smoking 20 yrs [facility] [place] [facility] History of tobacco use QUIT TOBACCO USE > 7 YEARS AGO 04/05/2009 [facility]IT [facility] [place] [facility] Plan of Care List of future care activities from Department of Veterans Affairs facilities. Additional future care activities may be listed in the Assessment and Plan section. Date/Time Care Activity Care Activity Detail Facili ty 12/30/2024 AMBULATORY - MEDICINE [facility] [place] [facility]
--- NOTE | 2024-10-29 09:36 | A.OFFPC_ITS ---
Vital Signs 10/29/24 09:55 Height 5 ft 6 in Weight 172 lb 6 oz BMI 27.8 BP 104/60 Blood Pressure Location Rt brachial Position Sitting Respiration 14 Pulse 41 L Pulse Source Pulse Oximeter Temp 97.6 F Temp Source Oral Pulse Oximetry (%) 96 Oxygen Delivery Method Room Air Intake Visit Reasons: f/u DM, HTN Intake Note: patient was originally scheduled to follow up on dm and htn. he was recently discharged from the hospital due to shortness of breath, pleuritic chest pain and found to have CHF Can Closing Machine Tender Required: No Allergies hydralazine (Hydralazine) Allergy (Unknown, Verified 10/29/24 09:51) SEVERE HEADACHE Tobacco use date assessed: 07/17/23 Dental Screening Dental Screen Date: 07/17/23 HPI f/u DM, HTN HPI Details 89 y/o male presents for a TCM, hospital discharge visit. Congestive?heart?failure?and reduced?ejection?fraction Patient?was?admitted?on?10/16/2024?and?discharged?on?10/22/2024. Patient?was?treated?with?IV?Bumex?and?later?switch?to?p.o.?diuretics?cardiac?cat heterization?due?to?newly?reduced?EF History?of?CKD?and?creatinine?had?risen?likely?due?to?prerenal?mkuq-gwqstdgp-ZKX . A1c in October was 6.5%. BP today 104/60, 41p. He is on metoprolol 25mg, amlodipine 2.5mg daily. Reports some hip pain. TCM TCM Information Date of Discharge 10/22/24 Discharged From Other ([facility] [place] and [facility] [place], [place]) Interactive Contact Date (Reference documentation from this date) 10/29/24 [facility] Medical History (HFpEF) heart failure with preserved ejection fraction Sialadenitis Benign cyst of skin Chest pain RUQ pain Wheezing Elevated diaphragm (~10/13/24) Pulmonary nodules Aortic stenosis Edema CAD (coronary artery disease) Diabetes type 2, controlled Elevated prostate specific antigen between 10 and 19 ng/ml Atrial fibrillation Hannacroix's disease Elevated morning serum cortisol level Surgical History History of cardiac cath Hx of tonsillectomy Hx of colonoscopy Family History Father Colon cancer Mother HTN (hypertension) Type 2 diabetes mellitus Brother No problems noted. Sister No problems noted. Son No problems noted. Son No problems noted. Son No problems noted. Daughter No problems noted. Daughter No problems noted. Social History Household Members: None Housing: Apartment Alcohol intake: former Year quit: 1979 Comment: pt politley refusing assistance to BR and alarms Patient Tobacco Use Status: Former Tobacco user Years Smoked: 45+ e-Cigarette/Vaping Use: Never Used Second Hand Smoke Exposure: No Advance Directives Date on File: 10/14/24 service: Yes Current occupational status: retired Current occupational exposures/hazards: No Cognitive needs: No Hearing needs: Yes Vision needs: No Questionnaire PHQ-9 Over the last 2 weeks, how often have you been bothered by any of the following problems? 1. Little interest or pleasure in doing things: not at all 2. Feeling down, depressed, or hopeless: not at all 4. Feeling tired or having little energy: several days Source: Developed by Drs. Boston Abdi, Ermelinda Hutton, Nagi Berkowitz and colleagues, with an educational noni from [employer]. Thrive Questionnaire Date Thrive assessed: 10/14/24 I am a: Patient What is your living situation today?: I have a steady place to live Within the past 12 months, did the food you bought not last and you didn't have the money to get more?: I choose not to answer this question Within the past 12 months, did you worry whether your food would run out before you got money to buy more?: I choose not to answer this question Do you have trouble paying for medicines?: I choose not to answer this question Do you have trouble getting transportation to medical appointments?: I choose not to answer this question Do you have trouble paying your heating and electricity bill?: No Do you have trouble taking care of your child, family member or friend?: No Do you have trouble with day-to-day activities such as bathing, preparing meals, shopping, managing finances, etc.?: No Are you currently unemployed and looking for a job?: No Are you interested in more education?: No Please select the resources that you would like help with: None Currently or been in a relationship where the following occur: I choose not to answer THRIVE Score: 0 AUDIT C Alcohol Use Questionnaire (AUDIT-C) 1. How often do you have a drink containing alcohol?: Never Total Score: 0 KOBE-7 AMB Questionnaire KOBE-7 Date KOBE - 7 assessed: 07/17/23 Feeling nervous, anxious, or on edge: 1 = Several days Not being able to stop or control worryin = Not at all Worrying too much about different things: 0 = Not at all Trouble relaxin = Not at all Being so restless that it is hard to sit still: 0 = Not at all Becoming easily annoyed or irritable: 0 = Not at all Feeling afraid as if something awful might happen: 0 = Not at all Total KOBE-7 score (0-4 normal; 5-9 mild; 10-14 moderate; 15-21 severe): 1 Source: Developed by Drs. Boston Abdi, Ermelinda Hutton, Nagi Berkowitz and colleagues, with an educational noni from [employer]. Review of Systems Const Denies chills, Denies fatigue, Denies fever(s), Denies headache(s) and Denies weakness ENT Denies dizziness and Denies headache(s) Card Denies dyspnea Resp Denies cough, Denies dyspnea, Denies wheezing and Denies other (shortness of breath) Musc Denies numbness and Denies tingling Neuro Denies dizziness, Denies headache(s), Denies numbness, Denies tingling and Denies weakness Psych Denies anxiety and Denies depression Endo Denies fatigue Aller/Immun Denies wheezing Physical exam (Primary Care) Vital Signs: Last Vital Signs Temp 97.6 F 10/29/24 09:55 Pulse 41 L 10/29/24 09:55 Resp 14 10/29/24 09:55 BP 104/60 10/29/24 09:55 Pulse Ox 96 10/29/24 09:55 Oxygen Delivery Method Room Air 10/29/24 09:55 BMI result Body Mass Index 27.8 Tobacco/Smoking Status: Tobacco use Status Tobacco use date assessed 07/17/23 10/29/24 09:37 Patient Tobacco Use Status Former Tobacco user 10/29/24 09:37 e-Cigarette/Vaping Use Never Used 10/29/24 09:37 Thrive Assessment: Date of Thrive Assessment Date Thrive assessed 10/14/24 10/29/24 09:37 Currently or been in a relationship where the following occur: I choose not to answer Const General: well developed; No acute distress Nutritional Appearance: well nourished Orientation/consciousness: patient oriented x3 HENMT Head: Yes normocephalic and Yes atraumatic Eyes General: appearance normal, both eyes and all related structures Pupils: Equal, round and reactive pupils present EOM: EOMs intact bilaterally Resp Other: Faint crackles at R base Effort & Inspection: normal respiratory effort Auscultation: clear to auscultation bilaterally Cardio Rate: regular rate Rhythm: regular rhythm Heart sounds: S1 normal heart sound present, S2 normal heart sound present, no gallops, no murmurs and no rubs Neuro General: patient oriented x3 and gait normal Cranial nerves: Yes Equal, round and reactive pupils present Psych Affect: normal affect Coding Level of Care Code TCM Mod MDM <= 7 Days Diagnoses CHF exacerbation I50.9 Heart failure I50.9 CAD (coronary artery disease) I25.10 Acute kidney injury N17.9 Diabetes type 2, controlled E11.9 Diabetes mellitus complication detail: with chronic kidney disease Diabetes mellitus complication status: with kidney complications Diabetes mellitus chcf insulin use: without chcf use Essential hypertension I10 Abnormal lung sounds R09.89 Hip pain M25.559 Assessment & Plan Assessment & Plan (1) CHF exacerbation: Code(s): I50.9 - Heart failure, unspecified Category: Medical Plan: TCM Congestive?heart?failure?and reduced?ejection?fraction Patient?was?admitted?on?10/16/2024?and?discharged?on?10/22/2024. Patient?was?treated?with?IV?Bumex?and?later?swi tch?to?p.o.?diuretics?cardiac?catheterization?due?to?newly?reduced?EF History?of?CKD?and?creatinine?had?risen?likely?due?to?prerenal?fkbi-kpjkwqde-SXK . Improved?with?gentle?IV?fluids, laying?RICK?inhibitor (2) Heart failure: Code(s): I50.9 - Heart failure, unspecified Category: Medical Plan: Check?BNP Avoid?salt/sodium (3) CAD (coronary artery disease): Comment: nonobstructive Code(s): I25.10 - Atherosclerotic heart disease of habematolel coronary artery without angina pectoris Category: Medical Plan: History?of?CAD?and?recent?cardiac?catheterization?showing?mild?CAD No?evidence?of ACS?despite?elevated?troponin?level,?likely?due?to?strain Continue?aspirin?and?rosuvastatin Follow-up?Cardiology?as?recommended (4) Acute kidney injury: Code(s): N17.9 - Acute kidney failure, unspecified Category: Medical Plan: AKA?on?CKD Check?labs May?need?judicious?use?of?a?diuretic?due?to?CHF.??Will?monitor?carefully (5) Diabetes type 2, controlled: Code(s): E11.9 - Type 2 diabetes mellitus without complications Category: Medical Qualifiers: Diabetes mellitus complication detail: with chronic kidney disease Diabetes mellitus complication status: with kidney complications Diabetes mellitus chcf insulin use: without lobsterman use Plan: A1c?6.9%?last?week Good?control.??Goal?is?less?than?7.0% Continue?current?medication?regimen (6) Essential hypertension: Code(s): I10 - Essential (primary) hypertension Category: Medical Plan: Blood?pressure?is?controlled.??Goal?is?less?than?130/80 Continue?current?medications (7) Abnormal lung sounds: Code(s): R09.89 - Other specified symptoms and signs involving the circulatory and respiratory systems Category: Medical Plan: Still?has?mild?crackles?at?right?base Check?a?chest?x-ray Checking?BNP (8) Hip pain: Code(s): M25.559 - Pain in unspecified hip Category: Medical Plan: Patient?notes?right?groin/hip?pain Check?x-ray Orders: Orders Comprehensive Met. Panel Today N17.9 - Acute kidney failure, unspecified Microalbumin, Random (w Creat) Today I10 - Essential (primary) hypertension, N17.9 - Acute kidney failure, unspecified XR hip RT min 2V Today M25.559 - Pain in unspecified hip XR chest 2V Today I50.9 - Heart failure, unspecified B Type Natriuretic Peptide Today I50.9 - Heart failure, unspecified
[2024-10-29 09:55] VITALS: BP 104/60; PULSE 41; RESP 14; TEMP 36.4; O2SAT 96; BMI 27.8
== END 2024-10-29 11:01 | disposition home or self-care (01) ==
PROVIDERS: PCP Family Medicine; Visit Provider Family Medicine
DX: I13.10 Hypertensive heart and chronic kidney disease without heart failure, with stage 1 through stage 4 chronic kidney disease, or unspecified chronic kidney disease (principal); I50.9 Heart failure, unspecified; E11.22 Type 2 diabetes mellitus with diabetic chronic kidney disease; I25.10 Atherosclerotic heart disease of native coronary artery without angina pectoris; N17.9 Acute kidney failure, unspecified; R09.89 Other specified symptoms and signs involving the circulatory and respiratory systems; M25.551 Pain in right hip

== ENCOUNTER 2024-10-29 11:09 | Outpatient (REF) | payer BC, SELFPAY ==
[2024-10-29 14:29] LABS: Appearance Urine Clear; Color Urine Yellow; Glucose Urine UA 100 mg/dL (Negative); Leukocyte Esterase Urine Negative (Negative); Nitrite Urine Negative (Negative); Specific Gravity - Urine 1.025 (1.005-1.025); UMIC TRIGGER UA YES; Urine Blood Trace (Negative); Urine Ketones Negative (Negative); Urine Protein Trace mg/dL (Neg-Trace)
[2024-10-29 14:41] LABS: Microalbum/Creatinine Ratio Ur 53.1 ug/mg cr (<30)
[2024-10-29 14:43] LABS: B Type Natriuretic Peptide 1039 pg/mL (<100)
[2024-10-29 14:43] LABS: Creatinine Urine 138.31 mg/dL; Protein/Creatinine Ratio, Ur 0.17 (<0.2); Total Protein Urine Random 23 mg/dL (<12)
[2024-10-29 14:46] LABS: Bacteria Urine None Seen (None Seen); RBC Urine 0-2 /HPF (0-2); Squamous Epithelial Cell Urine 0-2 /HPF (0-2); WBC Urine 0-5 /HPF (0-5)
[2024-10-29 14:52] LABS: Alanine Aminotransferase 25 U/L (0-40); Albumin Level 3.9 g/dL (3.5-5.0); Alkaline Phosphatase 93 U/L (39-117); Anion Gap 11 (12-20); Aspartate Amino Transferase 34 U/L (5-37); Bilirubin Total 0.8 mg/dL (0.0-1.0); Blood Urea Nitrogen 33 mg/dL (9-16); Calcium 9.4 mg/dL (8.4-10.2); Carbon Dioxide 26 mmol/L (22-29); Chloride 111 mmol/L (96-108); Estimated Glomerular Filt Rate 49; Glucose Random 130 mg/dL (60-115); Potassium 4.9 mmol/L (3.3-5.1); Sodium 143 mmol/L (135-145); Total Protein 6.5 g/dL (6.5-8.0)
== END 2024-10-29 11:10 | disposition home or self-care (01) ==
LOC: HO.WFDLDS 11:09
PROVIDERS: Referring Provider Internal Medicine Nephrology; Visit Provider Family Medicine
DX: Z00.00 Encounter for general adult medical examination without abnormal findings (principal); I13.0 Hypertensive heart and chronic kidney disease with heart failure and stage 1 through stage 4 chronic kidney disease, or unspecified chronic kidney disease; I50.9 Heart failure, unspecified; N18.31 Chronic kidney disease, stage 3a; N17.9 Acute kidney failure, unspecified
CPT/HCPCS: 36415; 80053; 81001; 82043; 82570; 83880; 84156

== ENCOUNTER 2024-10-30 07:08 | Outpatient (REF) | payer BC, SELFPAY ==
--- OUTSIDE RECORDS SUMMARY | 2024-10-29 04:36 | XMS_ITS | Continuity of Care Document ---
Author Name [facility] Organization [facility] Care Team Providers Care Movie Producer Name Role Phone DOD-IN Unavailable Unavailable Problems [...] Benign Prostatic Hypertrophy Without Outflow Obstruction (SCT [id number]) Active 05/07/19 19 Condition May 21, 2018 Entered By: MC DAN Comment: treated with finasteride [facility] Essential hypertension Active 05/07/19 09 Condition [facility] Hearing loss (SNOMED CT 66511580) Active 05/07/19 09 Condition [facility] HLD - Hyperlipidemia Active 05/07/19 09 Condition [facility] Hypothyroidism (SNOMED CT 45674944) Active 05/07/19 09 Condition [facility] Diabetes Mellitus Type 2 (SCT 69373089) Active Condition Apr 17, 2024 Entered By: SKYLAR GREGORY Comment: vet under care of community PCP/ Dr Sheldon Muniz- good glycemic control [facility] History of actinic keratosis Active Condition Feb 08, 2024 Entered By: SKYLAR GREGORY Comment: see tele derm-lesions on right side of face/ vet needs cryotx per derm [facility] Low Back Pain (SCT 489344550) Active Condition Oct 26, 2021 Entered By: [...] DAILY ORAL ACTIVE D'ALESSAN RUBENKERI Galindo [facility]23 [facility] BUMETANIDE 1MG TAB TAKE ONE TABLET BY MOUTH ONCE DAILY ORAL ACTIVE D'ALESSAN KERI MIRANDA 2023 [facility] CARBOXYMETH YLCELLULOSE NA 0.5% SOLN,OPH INSTILL 1 DROP INTO EACH EYE FOUR TIMES A DAY FOR DRY EYE OPHTHA LMIC ACTIVE 12/25/2024 [id number] 4 CHE SOSA EY J 2023 45 [facility] GLIPIZIDE 5MG TAB TAKE ONE-HALF TABLET BY MOUTH ORAL ACTIVE D'ALESSAN RUBENKERI HERMELINDO Josie 2023 [facility] LEVOTHYROXI NE NA 125MCG TAB (SYNTHROID) TAKE ONE TABLET BY MOUTH QD ORAL ACTIVE D'ALESSAN RUBENKERI HERMELINDO Josie 2023 [facility] LISINOPRIL 10MG TAB TAKE ONE TABLET BY MOUTH ONCE DAILY ORAL ACTIVE D'ALESSAN RUBENKERI Galindo 2023 [facility] PRAVASTATIN NA 40MG TAB TAKE ONE TABLET BY MOUTH AT BEDTIME ORAL ACTIVE PRASHANT DAN 2009 [facility] Immunizations Combined list of available immunizations from the Department of Defense and Veterans Affairs facilities. Immunization Series Date Given Administered By Site Reaction Lot Number CVX Code Drug Fisheries Technician Status Comments Source INFLUENZA, UNSPECIFIED FORMULATION 2023 88 complet ed HISTORICA L INFORMATI ON - SOURCE UNSPECIFI ED, [facility] INFLUENZA, UNSPECIFIED FORMULATION 2021 88 complet ed [facility] COVID-19 (MODERNA), MRNA, LNP-S, PF, 100 MCG OR 50 MCG DOSE 3 2020 207 complet ed MOD; [id number]; 2 [facility] COVID-19 (MODERNA), MRNA, LNP-S, PF, 100 MCG/0.5 ML DOSE 2 2020 207 complet ed MOD; [id number]; 1 [facility] COVID-19 (MODERNA), MRNA, LNP-S, PF, 100 MCG/0.5 ML DOSE 1 2020 207 complet ed MOD; [id number]; 1 [facility] [...] received in community flu clinic [facility] FLU,3 YRS (HISTORICAL) 2008 88 complet ed [facility] PNEUMOCOCCAL, UNSPECIFIED FORMULATION 2003 109 complet ed [facility] Vital Signs Combined list of [...] Disposition Source [facility] [place] [facility] OFFICE O/P EST LOW 20-29 MIN [id number] Diagnos is: ICD-10- CM E11.22 Type 2 diabete s mellitu s w diabeti c chronic kidney disease SKYLAR LEMUS 05/03 [facility] [place] [place] [facility] HEARING AID REPAIR/MOD IFYING [id number] Diagnos is: ICD-10- CM H90.3 Sensori neural hearing loss, bilater al SENIOR,JOHNSON OLE L 05/24 [facility] En[facility] [id number] 06/01 [facility] OFFICE O/P EST SF 10 MIN [id number] Diagnos is: ICD-10- CM E11.9 Type 2 diabete s mellitu s without complic ations Juan A MACHUCA 06/06 [facility] Out[facility] Encounter [id number] 09/24 [facility] Out[facility] Encounter [id number] 09/24 [facility] Out[facility] Encounter [id number] 10/22 [facility] Out[facility] Encounter [id number] Diagnos is: ICD-10- CM S46.911 A Strain unsp musc/fa sc/tend at shldr/u p arm, right arm, init CHASE,TRACI NATIONAL ACCOUNTS RECRUITER 10/24 [facility] [place]ER[place] [id number] Diagnos is: ICD-10- CM E11.9 Type 2 diabete s mellitu s without complic ations SOSA,LACE Y J 12/24 [facility] CPTR OPHTH DX IMG POST SEGMT [id number] Diagnos is: ICD-10- CM 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 Diagnos is: ICD-10- CM Z13.89 Encount er for screeni ng for other disorde r DARCIE HAIR ICA A 02/06 [facility] [place] TRIM NAIL(S) [id number] 1. Diagnos is: ICD-10- CM E11.9 Type 2 diabete s mellitu s without complic ations VICENTE MANZANO 02/06 [facility] [place] Outpatient Encounter [id number] Diagnos is: ICD-10- CM L57.0 Actinic keratos is MARY ARIAS PH 02/07 [facility] [place] [facility] Outpatient Encounter [id number] 02/07 [facility] [place] [facility] Outpatient Encounter [id number] 02/10 [facility] [place] OFFICE O/P EST MOD 30 MIN [id number] Diagnos is: ICD-10- CM E11.9 Type 2 diabete s mellitu s without complic ations Juan AKristopherTALAT SKYLAR MURPHY 04/17 [facility] TRIM NAIL(S) [id number] Diagnos is: ICD-10- CM E11.9 Type 2 diabete s mellitu s without complic ations VICENTE MANZANO GAMALIEL 06/09 [facility] [place] OFFICE O/P NEW MOD 45 MIN [id number] Diagnos is: ICD-10- CM L57.0 Actinic keratos is TERESA ALBRIGHT 08/07 [facility] [place] HEARING AID REPAIR/MOD IFYING [id number] Diagnos is: ICD-10- CM Z46.1 Encount er for fitting and adjustm ent of hearing aid RAYSHAWN SANDHU 08/07 [facility] [place] TRIM NAIL(S) [id number] Diagnos is: ICD-10- CM E11.9 Type 2 diabete s mellitu s without complic ations VICENTE MANZANO GAMALIEL 10/08 [facility] [place] [facility] Outpatient Encounter [id number] 10/28 [facility] [place] [facility] Outpatient Encounter [id number] 10/28 [facility] Social History Combined list of available smoking, tobacco, and other social history from Department of Defense and Veterans Affairs facilities. Social History Type Response Date Comment Source Tobacco smoking status KSIS VA-TOBACCO NEVER USED OTHER TYPE 04/17/2024 [facility] [place] [facility] History of tobacco use VA-TOBACCO USE FORMER CIGARETTES [facility]/17[facility]2024 [facility] [place] [facility] History of tobacco use IN-TOBACCO FORMER USER 05/03/2023 [facility] [place] [facility] History of tobacco use IN-TOBACCO FORMER USER 10/26/2021 [facility] [place] [facility] History of tobacco use IN-TOBACCO FORMER USER 08/19/2020 [facility] [place] [facility] [place] [facility] of [facility]2018 [facility] [place] [facility] History of tobacco use QUIT TOBACCO USE > 7 YEARS AGO 05/09/2017 quit 35 yrs ago [facility] [place] [facility] History of tobacco use LIFETIME NON-TOBACCO USER 05/09/2016 [facility] [place] [facility] History of tobacco use QUIT TOBACCO USE > 7 YEARS AGO 05/06/2015 pt states he stopped smoking 20 yrs ago [facility] [place] [facility] History of tobacco use QUIT TOBACCO USE > 7 YEARS AGO 04/05/2009 QUIT [facility] [place] [facility] Plan of Care List of future care activities from Department of Veterans Affairs facilities. Additional future care activities may be listed in the Assessment and Plan section. Date/Time Care Activity Care Activity Detail Facili ty 12/30/2024 AMBULATORY - MEDICINE [facility] [place] [facility]
--- NOTE | ~2024-10-30 | XR_ITS ---
EXAMINATION: XR CHEST CLINICAL INFORMATION: I50.9 - Heart failure, unspecified COMPARISON: Chest x-ray 10/13/2024 TECHNIQUE: 2 views of the chest were obtained. FINDINGS: There is elevated right right hemidiaphragm, stable. Otherwise rest of lungs are expanded and clear. No acute pneumonic process. No pleural effusion. Calcified granuloma left upper lobe stable. Mild prominence of right minor fissure is stable. Heart size and pulmonary vascularity is normal. No gross bony abnormality.. XR/XR chest 2V IMPRESSION: No acute cardiopulmonary process. Elevated right hemidiaphragm, left upper lobe calcified granuloma and mild prominence of right minor fissure are stable. Electronically signed by: Dillon Marino MD 10/30/2024 07:43 AM EDT
--- NOTE | ~2024-10-30 | XR_ITS ---
EXAMINATION: XR HIP 2 OR MORE VIEWS RIGHT HISTORY: M25.559 - Pain in unspecified hip COMPARISON: There are no prior studies available for comparison. FINDINGS: Two views of the right hip are submitted. Osseous mineralization is normal. There is no fracture or dislocation. The joint space is maintained. There are vascular calcifications. XR/XR hip RT min 2V IMPRESSION: Unremarkable examination of the right hip. Electronically signed by: Boston Carl MD 10/30/2024 07:42 AM EDT
== END 2024-10-30 07:09 | disposition home or self-care (01) ==
LOC: HO.XRAY 07:08
PROVIDERS: PCP Family Medicine; Visit Provider Family Medicine
DX: I11.0 Hypertensive heart disease with heart failure (principal); I50.9 Heart failure, unspecified; M25.552 Pain in left hip; Z79.01 Long term (current) use of anticoagulants
CPT/HCPCS: 71046; 73502; 85610; 99211

== ENCOUNTER → 2024-10-30 07:16 | Outpatient (BNV) | payer BC, SELFPAY | PROVIDERS: PCP Family Medicine; Visit Provider Radiology Diagnostic Radiology | DX: M25.551 Pain in right hip (principal); J84.10 Pulmonary fibrosis, unspecified | CPT/HCPCS: 71046; 73502 ==

== ENCOUNTER 2024-10-30 07:46 | Outpatient (AMB) | payer BC, SELFPAY ==
[2024-10-30 07:59] LABS: Prothrombin Time Whole Bld POC 20.7 sec (11.1-13.5); ~PT, ~INR - Anti Coag Clinic 1.7 (0.9-1.1)
--- NOTE | 2024-10-30 08:27 | MHC.OFFVISCO ---
Intake Intake Visit Reasons: Anticoagulation Allergies hydralazine (Hydralazine) Allergy (Unknown, Verified 10/30/24 07:47) SEVERE HEADACHE Medication List - Last Reconciled 10/30/24 by Elisa Jon RN amlodipine 2.5 mg See Protocol PO DAILY ascorbic acid (vitamin C) (Vitamin C) 500 mg PO DAILY aspirin (Adult Low Dose Aspirin) 81 mg PO DAILY blood sugar diagnostic As directed glipizide ER 2.5 mg PO DAILY 90 days isosorbide mononitrate ER 30 mg PO DAILY lancets One Touch Ultra Test Strips As directed to test blood sugar twice a day. Ninety day supply lancets (OneTouch UltraSoft 2 Lancet) As directed levothyroxine 125 mcg PO DAILY@0600 meclizine 12.5 mg PO BID-QID PRN 15 days metoprolol succinate ER 25 mg PO DAILY uzcseefvfdwd-skzafthm-aqyjms (Multivitamin 50 Plus tablet) 1 tab PO DAILY rosuvastatin 20 mg PO BEDTIME warfarin 4 mg See Protocol PO DAILY@1800 Nursing Note pt came to clinic this am asking when his next appt was- he missed it due to recent admission, he was here having lab work done this am. pt taken in as walking s/p admission s/p chest pain still complains about lymph nodes vs tonsils bothering him states he had labs and xrays today INR 1.7 out of therapeutic range Medications and supplements reviewed Patient status: states feeling better than he was Medications or supplements: states there were changes but not sure of all of the meds - med print out give along with a med list form to carry in his wallet, he is to bring all meds or updated med list next visit. Diet: good Denies any signs and symptoms of bleeding or clotting or unusual bruising Bleeding, bruising, clotting discussed Nutritional guidance given: avoid greens x 2 days this week then resume usual diet Dose: 6mg today then resume 2mg sunday/ 4mg x 6 days and update med list next visit F/U INR Date : 11/03/2024 ?? Patient verbalizing understanding of instructions given. Anti-Coag Initial Assessment Social Hx Patient Tobacco Use Status: Former Tobacco user alcohol intake: former Alcohol intake frequency: does not drink Coding Level of Care Code Est Patient Level 1 Diagnoses Current use of anticoagulant therapy Z79.01 Assessment & Plan Assessment & Plan (1) Current use of anticoagulant therapy: Comment: critical high INR Code(s): Z79.01 - alf (current) use of 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
== END 2024-10-30 08:19 | disposition home or self-care (01) ==
PROVIDERS: PCP Family Medicine; Visit Provider Internal Medicine Medical Oncology
DX: Z79.01 Long term (current) use of anticoagulants (principal)

== ENCOUNTER 2024-11-03 09:02 | Outpatient (AMB) | payer BC, SELFPAY ==
--- OUTSIDE RECORDS SUMMARY | 2024-11-03 04:17 | XMS_ITS | Continuity of Care Document ---
Author Name [facility] Organization [facility] Care Team Providers Care Russian Teacher Name Role Phone DOD-[place] Unavailable Unavailable Problems Combined list of problems [...] Benign Prostatic Hypertrophy Without Outflow Obstruction (SCT 638179092) Active 05/07/19 19 Condition May 21, 2018 Entered By: MC DAN Comment: treated with finasteride [facility] Essential hypertension Active 05/07/19 09 Condition [facility] Hearing loss (SNOMED CT 88894574) Active 05/07/19 09 Condition [facility] HLD - Hyperlipidemia Active 05/07/19 09 Condition [facility] Hypothyroidism (SNOMED CT 20631068) Active 05/07/19 09 Condition [facility] Diabetes Mellitus Type 2 (SCT 98342743) Active Condition Apr 17, 2024 Entered By: SKYLAR GREGORY Comment: vet under care of community PCP/ Dr Sheldon Muniz- good glycemic control [facility] History of actinic keratosis Active Condition Feb 08, 2024 Entered By: SKYLAR GREGORY Comment: see tele derm-lesions on right side of face/ vet needs cryotx per derm [facility] Low Back Pain (SCT 160006124) Active Condition Oct 26, 2021 Entered By: [...] DAILY ORAL ACTIVE D'ALESSAN KERI MIRANDA 2023 [facility] BUMETANIDE 1MG TAB TAKE ONE TABLET BY MOUTH ONCE DAILY ORAL ACTIVE D'ALESSAN KERI MIRANDA 2023 [facility] CARBOXYMETH YLCELLULOSE NA 0.5% SOLN,OPH INSTILL 1 DROP INTO EACH EYE FOUR TIMES A DAY FOR DRY EYE OPHTHA LMIC ACTIVE 12/25/2024 1333611 4 SOSA,LAC EY J 2023 45 [facility] GLIPIZIDE 5MG TAB TAKE ONE-HALF TABLET BY MOUTH ORAL ACTIVE D'ALESSAN RUBENKERI Galindo 2023 [facility] LEVOTHYROXI NE NA 125MCG TAB (SYNTHROID) TAKE ONE TABLET BY MOUTH QD ORAL ACTIVE D'ALESSAN RUBENKERI Galidno 2023 [facility] LISINOPRIL 10MG TAB TAKE ONE TABLET BY MOUTH ONCE DAILY ORAL ACTIVE D'ALESSAN KERI MIRANDA 2023 [facility] PRAVASTATIN NA 40MG TAB TAKE ONE TABLET BY MOUTH AT BEDTIME ORAL ACTIVE PRASHANT DAN 2009 [facility] Immunizations Combined list of available immunizations from the Department of Defense and Veterans Affairs facilities. Immunization Series Date Given Administered By Site Reaction Lot Number CVX Code Drug County Ordinary Status Comments Source INFLUENZA, UNSPECIFIED FORMULATION 2023 88 complet ed HISTORICA L INFORMATI ON - SOURCE UNSPECIFI ED, [facility] [place] INFLUENZA, UNSPECIFIED FORMULATION 2021 88 complet ed [facility] COVID-19 (MODERNA), MRNA, LNP-S, PF, 100 MCG OR 50 MCG DOSE 3 2020 207 complet ed MOD; [id number]; 2 [facility] COVID-19 (MODERNA), MRNA, LNP-S, PF, 100 MCG/0.5 ML DOSE 2 2020 207 complet ed MOD; [id number]; 1 [facility] COVID-19 (MODERNA), MRNA, LNP-S, PF, 100 MCG/0.5 ML DOSE 1 2020 207 complet ed MOD; [id number]; 1 [facility] [...] ed received in community flu clinic at [facility] [...] [facility] HEARING AID REPAIR/MOD IFYING [id number] Diagnos is: ICD-10- CM H90.3 Sensori neural hearing loss, bilater al SENIOR,JOHNSON OLE L 05/24 [facility] Outpatient Encounter [id number] 06/01 [facility] OFFICE O/P EST SF 10 MIN [id number] Diagnos is: ICD-10- CM E11.9 Type 2 diabete s mellitu s without complic ations Juan A MACHUCA AVID 06/06 [facility] Out[facility] En[facility] [id number] 09/24 [facility] Out[facility] En[facility] [id number] 09/24 [facility] Out[facility] Encounter [id number] 10/22 [facility] Out[facility] Encounter [id number] Diagnos is: ICD-10- CM S46.911 A Strain unsp musc/fa sc/tend at shldr/u p arm, right arm, init CHASE,[employer] 10/24 [facility] DETERMINE REFRACTIVE [place] [id number] Diagnos is: ICD-10- CM E11.9 Type 2 diabete s mellitu s without complic ations SOSA,LACE Y J 12/24 [facility] CPTR OPHTH DX IMG POST SEGMT [id number] Diagnos is: ICD-10- CM 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 Diagnos is: ICD-10- CM Z13.89 Encount er for screeni ng for other disorde r DARCIE HAIR ICA A 02/06 [facility] TRIM NAIL(S) [id number] 1. Diagnos is: ICD-10- CM E11.9 Type 2 diabete s mellitu s without complic ations VICENTE MANZANO 02/06 [facility] Outpatient Encounter [id number] Diagnos is: ICD-10- CM L57.0 Actinic keratos is MARY ARIAS PH J 02/07 [email or web address] Outpatient Encounter [id number] 1.02/07 [facility] [place] Outpatient Encounter [id number] 02/10 [facility] OFFICE O/P EST MOD 30 MIN [id number] Diagnos is: ICD-10- CM E11.9 Type 2 diabete s mellitu s without complic ations SKYLAR LEMUS 04/17 [facility] TRIM NAIL(S) [id number] Diagnos is: ICD-10- CM E11.9 Type 2 diabete s mellitu s without complic ations VICENTE MANZANO 06/09 [facility] OFFICE O/P NEW MOD 45 MIN [id number] Diagnos is: ICD-10- CM L57.0 Actinic keratos is TERESA ALBRIGHT 08/07 [facility] HEARING AID REPAIR/MOD IFYING [id number] Diagnos is: ICD-10- CM Z46.1 Encount er for fitting and adjustm ent of hearing aid EDSONRAYSHAWN MOCK 08/07 [facility] TRIM NAIL(S) [id number] Diagnos is: ICD-10- CM E11.9 Type 2 diabete s mellitu s without complic ations VICENTE MANZANO 10/08 [facility] [place] Outpatient Encounter [id number] 10/28 [facility] [place] Outpatient Encounter [id number] 10/28 [facility] [place] Social History Combined list of available smoking, tobacco, and other social history from Department of Defense and Veterans Affairs facilities. Social History Type Response Date Comment Source Tobacco smoking status [facility] VA-TOBACCO USE FORMER CIGARETTES 04/17/2024 [facility] History of tobacco use VA-TOBACCO NEVER USED OTHER TYPE 04/17/2024 [facility] History of tobacco use VA-TOBACCO FORMER USER 05/03/2023 [facility] History of tobacco use VA-TOBACCO FORMER USER 10/26/2021 [facility] History of tobacco use VA-TOBACCO FORMER USER 08/19/2020 [facility] [place] [facility] History of tobacco use VA-TOBACCO QUIT 15 YRS OR MORE 05/21/2018 [facility] History of tobacco use [place]-TOBACCO NEVER USED 05/21/2018 [facility] History of tobacco use QUIT TOBACCO USE > 7 YEARS AGO 05/09/2017 quit 35 yrs ago [facility] History of tobacco use LIFETIME NON-TOBACCO USER 05/09/2016 [facility] History of tobacco use QUIT TOBACCO USE > 7 YEARS AGO 05/06/2015 pt states he stopped smoking 20 yrs ago [facility] History of tobacco use QUIT TOBACCO USE > 7 YEARS AGO 04/05/2009 QUIT 15 YEARS AGO [facility] Plan of Care List of future care activities from Department of Veterans Affairs facilities. Additional future care activities may be listed in the Assessment and Plan section. Date/Time Care Activity Care Activity Detail Facili ty 12/30/2024 AMBULATORY - MEDICINE AMBULATORY - MEDICI NE [facility]
--- NOTE | 2024-11-03 09:57 | MHC.OFFVISCO ---
Intake Intake Visit Reasons: Anticoagulation Allergies hydralazine (Hydralazine) Allergy (Unknown, Verified 11/03/24 09:41) SEVERE HEADACHE Medication List - Last Reconciled 11/03/24 by Elisa Jon RN amlodipine 2.5 mg See Protocol PO DAILY aspirin (Adult Low Dose Aspirin) 81 mg PO DAILY blood sugar diagnostic As directed glipizide ER 2.5 mg PO DAILY 90 days isosorbide mononitrate ER 30 mg PO DAILY lancets One Touch Ultra Test Strips As directed to test blood sugar twice a day. Ninety day supply lancets (OneTouch UltraSoft 2 Lancet) As directed levothyroxine 125 mcg PO DAILY@0600 90 days meclizine 12.5 mg PO BID-QID PRN 15 days metoprolol succinate ER 25 mg PO DAILY sgevoptusect-yrmflzln-caamtu (Multivitamin 50 Plus tablet) 1 tab PO DAILY rosuvastatin 20 mg PO BEDTIME warfarin 4 mg See Protocol PO DAILY@1800 Nursing Note INR: 2.7 in therapeutic range Medications and supplements reviewed Pt states he feels tiered today and appears to be as well, states he has some swelling he notices in feet and hands - and states he gained weight over 5 lbs - he was advised to call cardiology Dr Gilbert or PCP Denies any signs and symptoms of bleeding or bruising or clotting. Bleeding, bruising, clotting discussed Nutritional guidance given eat greens today and eat a mix of vegetables Dose: keep same dose for now 2mg sunday 4mg x 6 days F/U INR: 1 week Patient verbalizes understanding of instructions given Anti-Coag Initial Assessment Social Hx Patient Tobacco Use Status: Former Tobacco user alcohol intake: former Alcohol intake frequency: does not drink Coding Level of Care Code Est Patient Level 1 Diagnoses Current use of anticoagulant therapy Z79.01 Results AMB INR Fingerstick AMB INR Fingerstick 2.7 Last Edit by Elisa Jon RN on 11/03/24 09:51 manual entry Assessment & Plan Assessment & Plan (1) Current use of anticoagulant therapy: Comment: critical high INR Code(s): Z79.01 - technician terminal and repeater (current) use of 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
[2024-11-03 10:16] LABS: Prothrombin Time Whole Bld POC 32.9 sec (11.1-13.5); ~PT, ~INR - Anti Coag Clinic 2.7 (0.9-1.1)
== END 2024-11-03 10:05 | disposition home or self-care (01) ==
LOC: HO.ACS 09:02
PROVIDERS: PCP Family Medicine; Visit Provider Internal Medicine Medical Oncology
DX: Z79.01 Long term (current) use of anticoagulants (principal)

== ENCOUNTER → 2024-11-03 09:02 | Outpatient (BNVA) | payer BC, SELFPAY | PROVIDERS: PCP Family Medicine; Visit Provider Internal Medicine Medical Oncology | DX: Z79.01 Long term (current) use of anticoagulants (principal) | CPT/HCPCS: 85610; 99211 ==

== ENCOUNTER 2024-11-10 09:57 | Outpatient (REF) | payer BC, SELFPAY ==
[2024-11-10 11:56] LABS: Hematocrit 34.9 % (42.0-52.0); Hemoglobin 11.6 g/dl (14.0-18.0); Mean Corpuscular HGB Conc 33.2 g/dl (31.0-36.0); Mean Corpuscular Hemoglobin 35.5 pg (27.0-33.0); Mean Corpuscular Volume 106.7 fL (80.0-98.0); NRBC Abs Auto 0.000 X10*3/uL (0.0-0.012); NRBC Pct Auto 0.0 /100WBC (0.0-0.2); Platelet Count 225 X10*3/uL (160-400); Red Blood Count 3.27 X10*6/uL (4.60-5.80); White Blood Count 9.4 X10*3/uL (4.8-10.8)
--- OUTSIDE RECORDS SUMMARY | 2024-11-10 11:58 | XMS_ITS | Clinical Summary ---
Author Organization [facility] Address [address] [place] [address] Phone Care Team Providers Care Motor Vehicle Field Representative Name Role Phone Patrick Muniz MD Primary Care Provider [phone] Allergies Active Allergy Reactions Criticality Noted Date [...] Diabetes: Visual Foot Exam 02/07/2023 Influenza Vaccine (#1) 2025 , 01/05/2022, 01/06/2020, Additional history exists Hepatitis B Vaccine Aged Out No longe r eligible based on patient's age to complete this topic Insurance [facility] Care Teams Motor Vehicle Field Representative Relationship Specialty Start Date End Date Patrick Muniz MD [address] [address] PCP - General Family Medicine 10/21/24
[2024-11-10 12:14] LABS: B Type Natriuretic Peptide 1484 pg/mL (<100)
[2024-11-10 12:16] LABS: Appearance Urine Clear; Glucose Urine UA Negative (Negative); PH 5.5 (5.0-9.0); Specific Gravity - Urine 1.025 (1.005-1.025); UMIC TRIGGER UA YES
[2024-11-10 12:49] LABS: Ferritin 204 ng/mL (20-250)
[2024-11-10 14:46] LABS: Anion Gap 11 (12-20); Blood Urea Nitrogen 24 mg/dL (9-16); Carbon Dioxide 25 mmol/L (22-29); Chloride 111 mmol/L (96-108); Estimated Glomerular Filt Rate 52; Iron 54 mcg/dL (45-160); Percent Iron Saturation 22 % (15-50); Potassium 4.6 mmol/L (3.3-5.1); Sodium 142 mmol/L (135-145); Total Iron Binding Capacity 246 mcg/dL (228-428); Unsaturated Iron Binding 192 ug/dL
== END 2024-11-10 09:58 | disposition home or self-care (01) ==
LOC: HO.LAB 09:57
PROVIDERS: Absent Provider Internal Medicine Nephrology; PCP Family Medicine; Visit Provider Internal Medicine Cardiovascular Disease
DX: I50.42 Chronic combined systolic (congestive) and diastolic (congestive) heart failure (principal); N18.31 Chronic kidney disease, stage 3a; I10 Essential (primary) hypertension; I50.9 Heart failure, unspecified; I48.91 Unspecified atrial fibrillation
CPT/HCPCS: 36415; 80051; 81001; 81003; 82565; 82728; 83540; 83880; 84520; 85027; 86335; 93005

== ENCOUNTER 2024-11-10 09:57 | Outpatient (AMB) | payer BC, SELFPAY ==
--- OUTSIDE RECORDS SUMMARY | 2024-11-03 04:17 | XMS_ITS | Continuity of Care Document ---
Author Name [facility] Organization [facility] Care Team Providers Care Jig Bore Tool Maker Name Role Phone DOD-[place] Unavailable Unavailable Problems Combined list of problems [...] Benign Prostatic Hypertrophy Without Outflow Obstruction (SCT [id number]) Active 05/07/19 19 Condition May 21, 2018 Entered By: MC DAN Comment: treated with finasteride [facility] Essential hypertension Active 05/07/19 09 Condition [facility] Hearing loss (SNOMED CT 36393095) Active 05/07/19 09 Condition [facility] HLD - Hyperlipidemia Active 05/07/19 09 Condition [facility] Hypothyroidism (SNOMED CT 43457626) Active 05/07/19 09 Condition [facility] Diabetes Mellitus Type 2 (SCT 03064854) Active Condition Apr 17, 2024 Entered By: SKYLAR GREGORY Comment: vet under care of community PCP/ Dr Sheldon Muniz- good glycemic control [facility] History of actinic keratosis Active Condition Feb 08, 2024 Entered By: SKYLAR GREGORY Comment: see tele derm-lesions on right side of face/ vet needs cryotx per derm [facility] Low Back Pain (SCT [id number]) Active Condition Oct 26, 2021 Entered By: [...] DAILY ORAL ACTIVE D'ALESSAN KERI MIRANDA 2023 [facility] BUMETANIDE 1MG TAB TAKE ONE TABLET BY MOUTH ONCE DAILY ORAL ACTIVE D'ALESSAN KERI MIRANDA 2023 [facility] CARBOXYMETH YLCELLULOSE NA 0.5% SOLN,OPH INSTILL 1 DROP INTO EACH EYE FOUR TIMES A DAY FOR DRY EYE OPHTHA LMIC ACTIVE 12/25/2024 [id number] 4 SOSA,LAC EY J 2023 45 [facility] GLIPIZIDE 5MG TAB TAKE ONE-HALF TABLET BY MOUTH ORAL ACTIVE D'ALESSAN RUBENKERI Galindo 2023 [facility] LEVOTHYROXI NE NA 125MCG TAB (SYNTHROID) TAKE ONE TABLET BY MOUTH QD ORAL ACTIVE D'ALESSAN RUBENKERI Galindo 2023 [facility] LISINOPRIL 10MG TAB TAKE ONE TABLET BY MOUTH ONCE DAILY ORAL ACTIVE D'ALESSAN KERI MIRANDA 2023 [facility] PRAVASTATIN NA 40MG TAB TAKE ONE TABLET BY MOUTH AT BEDTIME ORAL ACTIVE PRASHANT DAN 2009 [facility] [place] [facility] Immunizations Combined list of available immunizations from the Department of Defense and Veterans Affairs facilities. Immunization Series Date Given Administered By Site Reaction Lot Number CVX Code Drug Radiological Metallurgist Status Comments Source INFLUENZA, UNSPECIFIED FORMULATION 2023 88 complet ed HISTORICA L INFORMATI ON - SOURCE UNSPECIFI ED, [facility] [place] INFLUENZA, UNSPECIFIED FORMULATION 2021 88 complet ed [facility] COVID-19 (MODERNA), MRNA, LNP-S, PF, 100 MCG OR 50 MCG DOSE 3 2020 207 complet ed MOD; [id number]; 2 [facility] COVID-19 (MODERNA), MRNA, LNP-S, PF, 100 MCG/0.5 ML DOSE 2 2020 207 complet ed MOD; [id number]; 1 [facility] COVID-19 (MODERNA), MRNA, LNP-S, PF, 100 MCG/0.5 ML DOSE 1 2020 207 complet ed MOD; [id number]; 1 [facility] [...] ed received in community flu clinic at [facility] HEARING AID REPAIR/MOD IFYING [id number] Diagnos is: ICD-10- CM H90.3 Sensori neural hearing loss, bilater al SENIOR,JOHNSON OLE L 05/24 [facility] En[facility] [id number] 06/01 [facility] OFFICE O/P EST SF 10 MIN [id number] Diagnos is: ICD-10- CM E11.9 Type 2 diabete s mellitu s without complic ations Juan A MACHUCA AVID 06/06 [facility] En[facility] [id number] 09/24 [facility] Out[facility] Encounter [id number] 09/24 [facility] Encounter [id number] 10/22 [facility] Out[facility] Encounter [id number] Diagnos is: ICD-10- CM S46.911 A Strain unsp musc/fa sc/tend at shldr/u p arm, right arm, init CHASE,TRACI [employer]AL AND MAXILLOFACIAL PATHOLOGIST 10/24 [facility] DETERMINE REFRACTIVE STATE [id number] Diagnos is: ICD-10- CM E11.9 Type 2 diabete s mellitu s without complic ations SOSA,LACE Y J 12/24 [facility] CPTR OPHTH DX IMG POST SEGMT [id number] Diagnos is: ICD-10- CM 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 Diagnos is: ICD-10- CM Z13.89 Encount er for screeni ng for other disorde r DARCIE HAIR ICA A 02/06 [facility] TRIM NAIL(S) [id number] 1. Diagnos is: ICD-10- CM E11.9 Type 2 diabete s mellitu s without complic ations VICENTE MANZANO 02/06 [facility] Outpatient Encounter [id number] Diagnos is: ICD-10- CM L57.0 Actinic keratos is MARY ARIAS PH J 02/07 [facility] Outpatient Encounter [id number] 1.02/07 [facility] Outpatient Encounter [id number] 02/10 [facility] OFFICE O/P EST MOD 30 MIN [id number] Diagnos is: ICD-10- CM E11.9 Type 2 diabete s mellitu s without complic ations SKYLAR LEMUS 04/17 [facility] TRIM NAIL(S) [id number] Diagnos is: ICD-10- CM E11.9 Type 2 diabete s mellitu s without complic ations VICENTE MANZANO 06/09 [facility] OFFICE O/P NEW MOD 45 MIN [id number] Diagnos is: ICD-10- CM L57.0 Actinic keratos is TERESA ALBRIGHT 08/07 [facility] HEARING AID REPAIR/MOD IFYING [id number] Diagnos is: ICD-10- CM Z46.1 Encount er for fitting and adjustm ent of hearing aid EDSONRAYSHAWN MOCK 08/07 [facility] TRIM NAIL(S) [id number] Diagnos is: ICD-10- CM E11.9 Type 2 diabete s mellitu s without complic ations VICENTE MANZANO 10/08 [facility] Outpatient Encounter [id number] 10/28 [facility] Outpatient Encounter [id number] 10/28 [facility] Social History Combined list of available smoking, tobacco, and other social history from Department of Defense and Veterans Affairs facilities. Social History Type Response Date Comment Source Tobacco smoking status [facility] VA-TOBACCO USE FORMER CIGARETTES 04/17/2024 [...] FORMER USER 08/19/2020 [facility] History of tobacco use VA-TOBACCO QUIT 15 YRS OR MORE 05/21/2018 [facility] History of tobacco use [place] NEVER USED 05/21/2018 [facility] History of tobacco use QUIT TOBACCO USE > 7 YEARS AGO 05/09/2017 quit 35 yrs ago [facility] History of tobacco use LIFETIME NON-TOBACCO USER 05/09/2016 [facility] History of tobacco use QUIT TOBACCO USE > 7 YEARS AGO 05/06/2015 pt states he stopped smoking 20 yrs ago [facility] History of tobacco use QUIT TOBACCO USE > 7 YEARS AGO 04/05/2009 QUIT 15 YEARS AGO [facility] Plan of Care List of future care activities from Department of Veterans Affairs facilities. Additional future care activities may be listed in the Assessment and Plan section. Date/Time Care Activity Care Activity Detail Facili ty 12/30/2024 AMBULATORY - MEDICINE AMBULATORY - MEDICI NE [facility]
--- NOTE | 2024-11-10 10:17 | MHC.OFFVIS ---
Vital Signs 11/10/24 10:20 Height 5 ft 6 in Weight 178 lb 9.191 oz BMI 28.8 BP 132/64 Blood Pressure Location Lt brachial Position Sitting Pulse 62 Pulse Source Monitor Intake Visit Reasons: hand/leg Edema Intake Note: hand/leg edema Clinical Program Director Required: No Accompanied by: Self / Same As Patient Allergies hydralazine (Hydralazine) Allergy (Unknown, Verified 11/03/24 09:41) SEVERE HEADACHE Medication List - Last Reconciled 11/10/24 by Leon Gilbert MD amlodipine 2.5 mg See Protocol PO DAILY aspirin (Adult Low Dose Aspirin) 81 mg PO DAILY blood sugar diagnostic As directed glipizide ER 2.5 mg PO DAILY 90 days isosorbide mononitrate ER 30 mg PO DAILY lancets One Touch Ultra Test Strips As directed to test blood sugar twice a day. Ninety day supply lancets ([employer] UltraSoft 2 Lancet) As directed levothyroxine 125 mcg PO DAILY@0600 90 days meclizine 12.5 mg PO BID-QID PRN 15 days metoprolol succinate ER 25 mg PO DAILY jpskhuegbdon-trfgwwmo-kphymn (Multivitamin 50 Plus tablet) 1 tab PO DAILY rosuvastatin 20 mg PO BEDTIME warfarin 4 mg See Protocol PO DAILY@1800 HPI Comments Details: [age] year gentleman with chronic atrial fibrillation on Coumadin, peripheral edema and recent admission with congestive heart failure. He was transferred to [facility] where she underwent cardiac catheterization which showed no significant coronary disease as before. He has mild LV dysfunction by echocardiography. He has low voltage on EKG with a small pericardial effusion and we were planning to work him up for amyloidosis. Apparently saw the [facility] RN and was urgently brought back because she was very concerned about how he looked like. He is saying that he gets short of breath easily. Is denying any chest discomfort currently. He is currently not on any diuretics. He has gained 5 lb in the last few days. He has significant peripheral edema. He is also complaining of choking sensation which wakes him from his sleep after few hour of sleep. He is saying he has to cough to clear his throat and this is something happening more recently. [facility] Medical History Sialadenitis Benign cyst of skin Chest pain RUQ pain Wheezing Elevated diaphragm (~10/13/24) Pulmonary nodules Aortic stenosis Edema CAD (coronary artery disease) Diabetes type 2, controlled Elevated prostate specific antigen between 10 and 19 ng/ml Atrial fibrillation Jud's disease Elevated morning serum cortisol level Surgical History History of cardiac cath Hx of tonsillectomy Hx of colonoscopy Family History Father Colon cancer Mother HTN (hypertension) Type 2 diabetes mellitus Brother No problems noted. Sister No problems noted. Son No problems noted. Son No problems noted. Son No problems noted. Daughter No problems noted. Daughter No problems noted. Social History Household Members: None Housing: Apartment Alcohol intake: former Year quit: 1979 Comment: pt politley refusing assistance to BR and alarms Patient Tobacco Use Status: Former Tobacco user Years Smoked: 45+ e-Cigarette/Vaping Use: Never Used Second Hand Smoke Exposure: No Advance Directives Date on File: 10/14/24 service: Yes Current occupational status: retired Current occupational exposures/hazards: No Cognitive needs: No Hearing needs: Yes Vision needs: No Review of Systems Const Denies chills, Denies fatigue, Denies fever(s), Denies frequent falls, Denies weakness, Denies weight gain and Denies weight loss ENT Denies dizziness Card Denies chest pain, Reports leg edema, Denies lightheadedness, Denies palpitations, Reports dyspnea and Reports dyspnea on exertion Resp Denies cough, Reports dyspnea and Reports dyspnea on exertion GI Denies hematochezia Musc Denies abnormal gait, Denies muscle weakness, Denies numbness, Denies radiating pain into limb and Denies tingling Neuro Denies abnormal gait, Denies dizziness, Denies frequent falls, Denies numbness, Denies tingling and Denies weakness Endo Denies fatigue and Denies palpitations Physical Exam Vital Signs: Last Vital Signs Pulse 62 11/10/24 10:20 BP 132/64 11/10/24 10:20 BMI result Body Mass Index 28.8 GENERAL APPEARANCE: in no acute distress, pleasant. NECK: no carotid bruit, + jugular venous distention. SKIN: no suspicious lesions, warm and dry. HEART: Systolic murmur, irregular rate and rhythm. LUNGS: clear to auscultation bilaterally. ABDOMEN: soft, nontender. EXTREMITIES: +2 edema. PERIPHERAL PULSES: equal. NEUROLOGIC: No gross deficits, AAO X 3 Office Procedures EKG Details: AF 62/min, Right axis deviation, septal infarct, QTc 458 msec. [id number], Complete Assessment & Plan Assessment & Plan (1) Essential hypertension: Code(s): I10 - Essential (primary) hypertension Category: Medical (2) Heart failure: Code(s): I50.9 - Heart failure, unspecified Category: Medical (3) Atrial fibrillation: Code(s): I48.91 - Unspecified atrial fibrillation Category: Medical Plan Pleasant 89 year gentleman who is here for follow-up. He has background history of permanent atrial fibrillation and hypertension. Recent admission with congestive heart failure. He has significant peripheral edema which was thought to be related to heart failure but after diuresis kidney function worsened significantly. He was discharged without any diuretics. He has significant peripheral edema as well as PND like episodes. His BNP is 1400. I have sent a script for Jardiance to his pharmacy to see whether he can afford it. If he can afford it then we can start him on Jardiance 10 mg daily. Holding isosorbide and amlodipine currently. I think some of his edema clearly is linked with amlodipine as he had chronic lower extremity edema. Starting him on Lasix 40 mg p.o. daily. This will be titrated based on his response and he may need higher dose of diuretics. He will see us back in few weeks. Thank you for allowing me to participate in the care of your patient. Please feel free to contact me if you have any questions. Orders: Orders B Type Natriuretic Peptide Today I50.9 - Heart failure, unspecified Ferritin Today I50.9 - Heart failure, unspecified IRON PROFILE Today I50.9 - Heart failure, unspecified Complete Blood Count no Diff Today I50.9 - Heart failure, unspecified Immunofixation, Random Urine Today I50.9 - Heart failure, unspecified Medications: New empagliflozin (Jardiance) 10 mg PO DAILY 30 tabs 0RF I50.9 - Heart failure, unspecified furosemide (Lasix) 40 mg PO DAILY 60 tabs 3RF Coding Level of Care Code Est Pt Level 4 (06812) Diagnoses Essential hypertension I10 Heart failure I50.9 Atrial fibrillation I48.91 CPT Codes EKG - CPT: 92959-Rdpgpbwugfubbreis, Complete ([id number])
[2024-11-10 10:20] VITALS: BP 132/64; PULSE 62; BMI 28.8
--- OUTSIDE RECORDS SUMMARY | 2024-11-10 10:38 | XMS_ITS | Patient Health Record ---
Author Organization [facility] Address [address] [place] [address] Care Team Providers Care Engine Turner Name Role Phone Moises Winters Jr Reason For Referral No Information Plan Of Treatment No Information
== END 2024-11-10 10:48 | disposition home or self-care (01) ==
LOC: HO.HCS 09:58
PROVIDERS: PCP Family Medicine; Visit Provider Internal Medicine Cardiovascular Disease
DX: I10 Essential (primary) hypertension (principal); I50.9 Heart failure, unspecified; I48.91 Unspecified atrial fibrillation
CPT/HCPCS: 93010; 99214

== ENCOUNTER 2024-11-11 07:58 | Outpatient (AMB) | payer BC, SELFPAY ==
--- OUTSIDE RECORDS SUMMARY | 2024-11-03 04:17 | XMS_ITS | Continuity of Care Document ---
Author Name [facility] Organization [facility] Care Team Providers Care Manager Of Supply Chain Name Role Phone [facility] Unavailable Unavailable Problems [...] Benign Prostatic Hypertrophy Without Outflow Obstruction (SCT 110956890) Active 05/07/19 19 Condition May 21, 2018 Entered By: MC DAN Comment: treated with finasteride [facility] Essential hypertension Active 05/07/19 09 Condition [facility] Hearing loss (SNOMED CT 43151193) Active 05/07/19 09 Condition [facility] HLD - Hyperlipidemia Active 05/07/19 09 Condition [facility] Hypothyroidism (SNOMED CT 36489950) Active 05/07/19 09 Condition [facility] Diabetes Mellitus Type 2 (SCT 50146895) Active Condition Apr 17, 2024 Entered By: SKYLAR GREGORY Comment: vet under care of community PCP/ Dr Sheldon Muniz- good glycemic control [facility] History of actinic keratosis Active Condition Feb 08, 2024 Entered By: SKYLAR GREGORY Comment: see tele derm-lesions on right side of face/ vet needs cryotx per derm [facility] Low Back Pain (SCT [id number]) Active Condition Oct 26, 2021 Entered By: [...] DAILY ORAL ACTIVE D'ALESSAN KERI MIRANDA 2023 [facility] BUMETANIDE 1MG TAB TAKE ONE TABLET BY MOUTH ONCE DAILY ORAL ACTIVE D'ALESSAN KERI MIRANDA 2023 [facility] CARBOXYMETH YLCELLULOSE NA 0.5% SOLN,OPH INSTILL 1 DROP INTO EACH EYE FOUR TIMES A DAY FOR DRY EYE OPHTHA LMIC ACTIVE 12/25/2024 [id number] SOSA,LAC EY J 2023 45 [facility] GLIPIZIDE 5MG TAB TAKE ONE-HALF TABLET BY MOUTH ORAL ACTIVE D'ALESSAN RUBENKERI Galindo 2023 [facility] LEVOTHYROXI NE NA 125MCG TAB (SYNTHROID) TAKE ONE TABLET BY MOUTH QD ORAL ACTIVE D'ALESSAN RUBENKERI Galindo 2023 [facility] LISINOPRIL 10MG TAB TAKE ONE TABLET BY MOUTH ONCE DAILY ORAL ACTIVE D'ALESSAN KERI MIRANDA 2023 [facility] PRAVASTATIN NA 40MG TAB TAKE ONE TABLET BY MOUTH AT BEDTIME ORAL ACTIVE PRASHANT DAN 2009 [facility] Immunizations Combined list of available immunizations from the Department of Defense and Veterans Affairs facilities. Immunization Series Date Given Administered By Site Reaction Lot Number CVX Code Drug Med Peds Status Comments Source INFLUENZA, UNSPECIFIED FORMULATION 2023 88 complet ed HISTORICA L INFORMATI ON - SOURCE UNSPECIFI ED, [facility] INFLUENZA, UNSPECIFIED FORMULATION 2021 88 complet ed [facility] COVID-19 (MODERNA), MRNA, LNP-S, PF, 100 MCG OR 50 MCG DOSE 3 2020 207 complet ed MOD; [id number]; 2 [facility] COVID-19 (MODERNA), MRNA, LNP-S, PF, 100 MCG/0.5 ML DOSE 2 2020 207 complet ed MOD; [id number]; 1 [facility] COVID-19 (MODERNA), MRNA, LNP-S, PF, 100 MCG/0.5 ML DOSE 1 2020 207 complet ed MOD; [id number]; 1 [facility] [...] ed received in community flu clinic at [facility] [...] Source [facility] HEARING AID REPAIR/MOD IFYING [id number] Diagnos is: ICD-10- CM H90.3 Sensori neural hearing loss, bilater al SENIOR,JHONSON OLE L 05/24 [facility] Outpatient Encounter [id number] 06/01 [facility] OFFICE O/P EST SF 10 MIN [id number] Diagnos is: ICD-10- CM E11.9 Type 2 diabete s mellitu s without complic ations Juan A MACHUCA AVID 06/06 [facility] Out[facility] Encounter [id number] 09/24 [facility] Out[facility] Encounter [id number] 09/24 [facility] Out[facility] Encounter [id number] 10/22 [facility] Outpatient Encounter [id number] Diagnos is: ICD-10- CM S46.911 A Strain unsp musc/fa sc/tend at shldr/u p arm, right arm, init CHASE,TRACI EXTERNAL GRINDER TENDER 10/24 [facility] DETERMINE REFRACTIVE STATE [id number] Diagnos is: ICD-10- CM E11.9 Type 2 diabete s mellitu s without complic ations SOSA,LACE Y J 12/24 [facility] CPTR OPHTH DX IMG POST SEGMT [id number] Diagnos is: ICD-10- CM 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 Diagnos is: ICD-10- CM Z13.89 Encount er for screeni ng for other disorde r DARCIE HAIR ICA A 02/06 [facility] TRIM NAIL(S) [id number] 1. Diagnos is: ICD-10- CM E11.9 Type 2 diabete s mellitu s without complic ations VICENTE MANZANO 02/06 [facility] Outpatient Encounter [id number] Diagnos is: ICD-10- CM L57.0 Actinic keratos is MARY ARIAS PH J 02/07 [facility] Outpatient Encounter [id number] 1.02/07 [facility] Outpatient Encounter [id number] 02/10 [facility] OFFICE O/P EST MOD 30 MIN [id number] Diagnos is: ICD-10- CM E11.9 Type 2 diabete s mellitu s without complic ations SKYLAR LEMUS 04/17 [facility] TRIM NAIL(S) [id number] Diagnos is: ICD-10- CM E11.9 Type 2 diabete s mellitu s without complic ations VICENTE MANZANO 06/09 [facility] OFFICE O/P NEW MOD 45 MIN [id number] Diagnos is: ICD-10- CM L57.0 Actinic keratos is TERESA ALBRIGHT 08/07 [facility] HEARING AID REPAIR/MOD IFYING [id number] Diagnos is: ICD-10- CM Z46.1 Encount er for fitting and adjustm ent of hearing aid EDSONRAYSHAWN MOCK 08/07 [facility] TRIM NAIL(S) [id number] Diagnos is: ICD-10- CM E11.9 Type 2 diabete s mellitu s without complic ations VICENTE MANZANO 10/08 [facility] Outpatient Encounter [id number] 10/28 [facility] Outpatient Encounter [id number] 10/28 [facility] Social History Combined list of [...] FORMER USER 08/19/2020 [facility] History of tobacco use VA-TOBACCO QUIT 15 YRS OR MORE 05/21/2018 [facility] History of tobacco use [place] NEVER USED 05/21/2018 [facility] History of tobacco use QUIT TOBACCO USE > 7 YEARS AGO 05/09/2017 quit 35 yrs ago [facility] History of tobacco use LIFETIME NON-TOBACCO USER 05/09/2016 [facility] History of tobacco use QUIT TOBACCO USE > 7 YEARS AGO 05/06/2015 pt states he stopped smoking 20 yrs ago [facility] History of tobacco use QUIT TOBACCO USE > 7 YEARS AGO 04/05/2009 QUIT 15 YEARS AGO [facility] Plan of Care List of future care activities from Department of Veterans Affairs facilities. Additional future care activities may be listed in the Assessment and Plan section. Date/Time Care Activity Care Activity Detail Facili ty 12/30/2024 AMBULATORY - MEDICINE AMBULATORY - MEDICI NE [facility]
--- OUTSIDE RECORDS SUMMARY | 2024-11-11 07:59 | XMS_ITS | Clinical Summary ---
Author Organization [facility] Address [address] [place] [address] Phone Care Team Providers Care Counter Waitress/Waiter Name Role Phone Patrick Muniz MD Primary Care Provider [phone] Allergies Active Allergy Reactions Criticality Noted Date [...] patient's age to complete this topic Insurance [facility] Care Teams Counter Waitress/Waiter Relationship Specialty Start Date End Date Patrick Muniz MD [address] [address] PCP - General Family Medicine 10/21/24
--- OUTSIDE RECORDS SUMMARY | 2024-11-11 07:59 | XMS_ITS | Patient Health Record ---
Author Organization [facility] Address [address] [place] [address] Care Team Providers Care Coat Padder Name Role Phone Moises Winters Jr Reason For Referral No Information Plan Of Treatment No Information
--- NOTE | 2024-11-11 08:20 | MHC.OFFVISCO ---
Intake Intake Visit Reasons: Anticoagulation Allergies hydralazine (Hydralazine) Allergy (Unknown, Verified 11/11/24 08:07) SEVERE HEADACHE Medication List - Last Reconciled 11/11/24 by Elisa Kline RN aspirin (Adult Low Dose Aspirin) 81 mg PO DAILY blood sugar diagnostic As directed empagliflozin (Jardiance) 10 mg PO DAILY furosemide (Lasix) 40 mg PO DAILY glipizide ER 2.5 mg PO DAILY 90 days lancets One Touch Ultra Test Strips As directed to test blood sugar twice a day. Ninety day supply lancets (OneTouch UltraSoft 2 Lancet) As directed levothyroxine 125 mcg PO DAILY@0600 90 days meclizine 12.5 mg PO BID-QID PRN 15 days metoprolol succinate ER 25 mg PO DAILY fymijgmibwqt-dqycjehs-hfjayx (Multivitamin 50 Plus tablet) 1 tab PO DAILY rosuvastatin 20 mg PO BEDTIME warfarin 4 mg See Protocol PO DAILY@1800 Nursing Note INR: 3.7?out of therapeutic range 2-3 Medications and supplements reviewed Patient status: recent admission for afib/chf. Cardiac cath at [facility] which showed no significant disease. Medications or supplements: started on Jardiance and Lasix. No effect on INR. Diet: usual diet for pt. He says he does not use added salt. Denies any signs and symptoms of bleeding or clotting or unusual bruising Bleeding, bruising, clotting discussed Nutritional guidance given: to have a serving of greens today. States he will have broccoli. Dose: hold today's dose of 4mg then 4mg X 6 days and 2mg X 1 day (Sun) F/U INR Date: 11/18/24?? Patient verbalizing understanding of instructions with read back given. 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
[2024-11-11 08:36] LABS: Prothrombin Time Whole Bld POC 44.2 sec (11.1-13.5); ~PT, ~INR - Anti Coag Clinic 3.7 (0.9-1.1)
== END 2024-11-11 08:28 | disposition home or self-care (01) ==
LOC: HO.ACS 07:58
PROVIDERS: PCP Family Medicine; Visit Provider Internal Medicine Medical Oncology
DX: Z79.01 Long term (current) use of anticoagulants (principal)

== ENCOUNTER → 2024-11-11 07:58 | Outpatient (BNVA) | payer BC, SELFPAY | PROVIDERS: PCP Family Medicine; Visit Provider Internal Medicine Medical Oncology | DX: I48.0 Paroxysmal atrial fibrillation (principal); Z51.81 Encounter for therapeutic drug level monitoring; Z79.01 Long term (current) use of anticoagulants | CPT/HCPCS: 85610; 99212 ==

== ENCOUNTER 2024-11-12 09:29 | Outpatient (AMB) | payer MEDICARE, SELFPAY ==
--- OUTSIDE RECORDS SUMMARY | 2024-11-03 04:17 | XMS_ITS | Continuity of Care Document ---
Author Name [facility] Organization [facility] Care Team Providers Care Professor Of Floriculture Name Role Phone DOD-KS Unavailable Unavailable Problems Combined list of problems [...] Benign Prostatic Hypertrophy Without Outflow Obstruction (SCT [id number]) Active 05/07/19 19 Condition May 21, 2018 Entered By: MC DAN Comment: treated with finasteride [facility] Essential hypertension Active 05/07/19 09 Condition [facility] Hearing loss (SNOMED CT 03507340) Active 05/07/19 09 Condition [facility] HLD - Hyperlipidemia Active 05/07/19 09 Condition [facility] Hypothyroidism (SNOMED CT 65485537) Active 05/07/19 09 Condition [facility] Diabetes Mellitus Type 2 (SCT 22839327) Active Condition Apr 17, 2024 Entered By: SKYLAR GREGORY Comment: vet under care of community PCP/ Dr Sheldon Muniz- good glycemic control [facility] History of actinic keratosis Active Condition Feb 08, 2024 Entered By: SKYLAR GREGORY Comment: see tele derm-lesions on right side of face/ vet needs cryotx per derm [facility] Low Back Pain (SCT 897542215) Active Condition Oct 26, 2021 Entered By: [...] DAILY ORAL ACTIVE D'ALESSAN KERI MIRANDA 2023 [facility] BUMETANIDE 1MG TAB TAKE ONE TABLET BY MOUTH ONCE DAILY ORAL ACTIVE D'ALESSAN KERI MIRANDA 2023 [facility] CARBOXYMETH YLCELLULOSE NA 0.5% SOLN,OPH INSTILL 1 DROP INTO EACH EYE FOUR TIMES A DAY FOR DRY EYE OPHTHA LMIC ACTIVE 12/25/2024 [id number] 4 SOSA,LAC EY J 2023 45 [facility] GLIPIZIDE 5MG TAB TAKE ONE-HALF TABLET BY MOUTH ORAL ACTIVE D'ALESSAN RUBENKERI Galindo 2023 [facility] LEVOTHYROXI NE NA 125MCG TAB (SYNTHROID) TAKE ONE TABLET BY MOUTH QD ORAL ACTIVE D'ALESSAN RUBENKERI Galindo 2023 [facility] LISINOPRIL 10MG TAB TAKE ONE TABLET BY MOUTH ONCE DAILY ORAL ACTIVE D'ALESSAN KERI MIRANDA 2023 [facility] PRAVASTATIN NA 40MG TAB TAKE ONE TABLET BY MOUTH AT BEDTIME ORAL ACTIVE PRASHANT DAN 2009 [facility] Immunizations Combined list of available immunizations from the Department of Defense and Veterans Affairs facilities. Immunization Series Date Given Administered By Site Reaction Lot Number CVX Code Drug Capacitor Tester Status Comments Source INFLUENZA, UNSPECIFIED FORMULATION 2023 88 complet ed HISTORICA L INFORMATI ON - SOURCE UNSPECIFI ED, [facility] INFLUENZA, UNSPECIFIED FORMULATION 2021 88 complet ed [facility] COVID-19 (MODERNA), MRNA, LNP-S, PF, 100 MCG OR 50 MCG DOSE 3 2020 207 complet ed MOD; [id number]; 2 [facility] COVID-19 (MODERNA), MRNA, LNP-S, PF, 100 MCG/0.5 ML DOSE 2 2020 207 complet ed MOD; [id number]; 1 [facility] COVID-19 (MODERNA), MRNA, LNP-S, PF, 100 MCG/0.5 ML DOSE 1 2020 207 complet ed MOD; [id number]; 1 [facility] [...] ed received in community flu clinic [facility] HE[facility]ING AID [facility]PAIR/MOD IFYING [id number] Diagnos is: ICD-10- CM H90.3 Sensori neural hearing loss, bilater al SENIOR,JOHNSON OLE L 05/24 [facility] Outpatient Encounter [id number] 06/01 [facility] OFFICE O/P EST SF 10 MIN [id number] Diagnos is: ICD-10- CM E11.9 Type 2 diabete s mellitu s without complic ations Juan A MACHUCA AVID 06/06 [facility] Out[facility] En[facility] [id number] 09/24 [facility] En[facility] [id number] 09/24 [facility] Out[facility] Encounter [id number] 10/22 [facility] Out[facility] Encounter [id number] Diagnos is: ICD-10- CM S46.911 A Strain unsp musc/fa sc/tend at shldr/u p arm, right arm, init CHASE,TRACI SEMICONDUCTOR PROCESSOR 10/24 [facility] DETERMINE REFRACTIVE STATE [id number] Diagnos is: ICD-10- CM E11.9 Type 2 diabete s mellitu s without complic ations SOSA,LACE Y J 12/24 [facility] CPTR OPHTH DX IMG POST SEGMT [id number] Diagnos is: ICD-10- CM 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 Diagnos is: ICD-10- CM Z13.89 Encount er for screeni ng for other disorde r DARCIE HAIR ICA A 02/06 [facility] TRIM NAIL(S) [id number] 1. Diagnos is: ICD-10- CM E11.9 Type 2 diabete s mellitu s without complic ations VICENTE MANZANO 02/06 [facility] Outpatient Encounter [id number] Diagnos is: ICD-10- CM L57.0 Actinic keratos is MARY ARIAS PH J 02/[address] [facility] Outpatient Encounter [id number] 1.02/07 [facility] Outpatient Encounter [id number] 02/10 [facility] OFFICE O/P EST MOD 30 MIN [id number] Diagnos is: ICD-10- CM E11.9 Type 2 diabete s mellitu s without complic ations SKYLAR LEMUS 04/17 [facility] TRIM NAIL(S) [id number] Diagnos is: ICD-10- CM E11.9 Type 2 diabete s mellitu s without complic ations VICENTE MANZANO 06/09 [facility] OFFICE O/P NEW MOD 45 MIN [id number] Diagnos is: ICD-10- CM L57.0 Actinic keratos is TERESA ALBRIGHT 08/07 [facility] HEARING AID REPAIR/MOD IFYING [id number] Diagnos is: ICD-10- CM Z46.1 Encount er for fitting and adjustm ent of hearing aid EDSONRAYSHAWN MOCK 08/07 [facility] TRIM NAIL(S) [id number] Diagnos is: ICD-10- CM E11.9 Type 2 diabete s mellitu s without complic ations VICENTE MANZANO 10/08 [facility] Outpatient Encounter [id number] 10/28 [facility] Outpatient Encounter [id number] 10/28 [facility] Social History Combined list of available [...] FORMER USER 08/19/2020 [facility] History of tobacco use [facility]-TOBACCO QUIT 15 YRS OR MORE 05/21/2018 [facility] History of tobacco use [place]-TOBACCO NEVER USED 05/21/2018 [facility] History of tobacco use QUIT TOBACCO USE > 7 YEARS AGO 05/09/2017 quit 35 yrs ago [facility] History of tobacco use LIFETIME NON-TOBACCO USER 05/09/2016 [facility] History of tobacco use QUIT TOBACCO USE > 7 YEARS AGO 05/06/2015 pt states he stopped smoking 20 yrs ago [facility] History of tobacco use QUIT TOBACCO USE > 7 YEARS AGO 04/05/2009 QUIT 15 YEARS AGO [facility] Plan of Care List of future care activities from Department of Veterans Affairs facilities. Additional future care activities may be listed in the Assessment and Plan section. Date/Time Care Activity Care Activity Detail Facili ty 12/30/2024 AMBULATORY - MEDICINE AMBULATORY - MEDICI NE [facility]
--- NOTE | 2024-11-12 09:32 | MHC.OFFVIS ---
Vital Signs 11/12/24 09:33 Height 5 ft 6 in Weight 180 lb 12.465 oz BMI 29.2 BP 140/64 H Blood Pressure Location Lt brachial Position Sitting Pulse 64 Pulse Source Pulse Oximeter Pulse Oximetry (%) 96 Oxygen Delivery Method Room Air Intake Visit Reasons: COPD Diabetes Manager Required: No Accompanied by: Self / Same As Patient Allergies hydralazine (Hydralazine) Allergy (Unknown, Verified 11/12/24 09:36) SEVERE HEADACHE HPI Comments Details: The patient is an 89 [id number] gentleman, [place] , who is presenting with the normal CT scan of the chest. The patient denies any respiratory complaints. He denies any shortness of breath or cough. He denies any night sweats or any weight loss. He has always been involved with his martial arts and tries to stay active. 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 The patient did have a CT scan of the chest recently which was personally by me. 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 I did review his previous CT scan from 2017 in the right hemidiaphragm elevation is chronic. I he does state when he was young he did fall from about 8-12 feet and landed on the right side. we did speak about different conditions that can result in the elevation of the diaphragm. But at this point the patient is asymptomatic and based on the chronicity I would not do any further testing. The patient also has evidence of pulmonary nodules. The larger nodule is in the calcified consistent with granulomatous disease. the patient did spend time around the world as part of the [employer]. Therefore he is at risk for development of latent tuberculosis. He denies ever been tested for tuberculosis that he is aware of. it is reassuring that the pulmonary nodules have not significantly changed when compared to 2017. the patient does not have any significant symptoms do from a respiratory status so therefore will undergo blood work to assess the granulomas including rule out tuberculosis. 11/29/2021 the patient is here for a pulmonary follow-up visit. Overall the patient has been doing well. He did look back to see if he had any injuries to his right chest. He states that more than 20 years ago he had 2 large breaks on his chest that were broken during a martial arts exhibition. From a respiratory status is not holding him back he still exercising walking regularly. He still practicing martial arts. We did look at the blood work including a positive TB spot suggesting latent tuberculosis with his calcified pulmonary nodules. He denies any symptoms of weight loss night sweats hemoptysis or cough at this time. Will plan to follow up the pulmonary nodules in 6 months from now. If the patient develops any worsening symptoms prior to that is to call for an earlier appointment. He also document some wheezing at times when he walks. But is very transient and goes away on its own. The patient was offered a rescue inhaler but he really does not want 1 since he is taking so many medications already. I did encourage him to call the office if he develops any worsening respiratory symptoms prior to the next appointment. 05/24/2022 the patient is here for a pulmonary follow-up visit. Overall the patient is doing well from a respiratory status. He does complaint of some right upper quadrant abdominal discomfort at times. He is wondering if it is from the lungs. At this point he does not have the discomfort. It comes and goes and it radiates to the back. It about moderate severity when it does happen. We did review his last CT scan of the chest demonstrating stable pulmonary nodules. The patient does have an elevated right hemidiaphragm likely secondary to a traumatic injury in the past. In the meantime the abdominal discomfort that he is describing is pointing to his gallbladder way a significant amount of stones. At this point the patient is asymptomatic. If the patient develops any further right upper quadrant abdominal discomfort he is to get evaluated for potential gallbladder disease. It is also reassuring that the pulmonary nodules are not changing. Therefore, I will not order a repeat CT scan at this time. If however the patient develops any new or concerning symptoms we can always re-evaluate at that time. 05/08/2023 the patient is here for a pulmonary follow-up visit. Overall the patient is doing fairly well. Still complaining of right-sided chest discomfort. Is off and on. Typically with sudden movements it can be more significant. Right now she was better although he did precipitate a little bit by doing his martial arts movements. 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 We did review his last chest x-ray that she had back in October 2022 demonstrating elevated hemidiaphragm which is chronic for him. Likely related to trauma which is blood trauma back when he was in high school. The patient's last CT scan was a year ago and it demonstrated stable pulmonary nodules. We did not have to follow-up with additional CT scans at this time unless his discomfort worsens. We did talk about [id number] medications to consider such as turmeric or glucosamine chondroitin 10 for his arthritis. The patient will follow up with his primary care doctor as well. Will follow-up in a year's time if the patient has any worsening symptoms prior to the next visit he will should call for earlier assessment. 05/14/2024 the patient is here for a pulmonary follow-up visit. Overall he is doing well from a respiratory status. He has been having some right-sided discomfort in addition to that some back pain. He has been having also noticing some shortness of breath with activity specially going up a flight of stairs. He is also working with primary care because of significant back pain. Sometimes he feels like a pulse in the back the lower back area. On exam he does have some crackles in the right base which are new. Therefore have him get an x-ray of the chest in addition to lumbar x-ray to make sure with the back. The patient right now has a rescue inhaler that he can use as needed. He will follow-up in 4-6 months. If she has any issues prior to that we can always see him sooner. If his abnormal findings on the x-ray then I will let him know about additional imaging studies. 11/12/2024 the patient is here for hospital follow-up visit. He was recently hospitalized at [facility] for what appeared to be congestive heart failure and also elevated cardiac enzymes. He was transferred to [facility] where he had a cardiac catheterization. He did not require PCI. His medications were adjusted. His echocardiogram demonstrates significant diastolic dysfunction with slightly decreased EF. The patient has also some renal insufficiency making it difficult for his diuresis. He did get discharged and he was supposed to continue the Lasix but he did not moss picker the prescription. He has been noticing some increased weight gain and significant lower extremity edema. He is going to start the Lasix now. In the meantime he does have daytime drowsiness also has cardiovascular risk factors AFib and evidence of pulmonary hypertension on his echo. Likely secondary. Will go ahead and request a in last sleep study this time. Again, his [place] score is 11/24. He will follow-up after the sleep study. In the meantime he knows to start the diuretic soon as possible. [facility] Medical History (Updated 11/12/24 @ 21:49 by Delbert Finley MD) Lower extremity edema Sialadenitis Benign cyst of skin Chest pain RUQ pain Wheezing Elevated diaphragm (~10/13/24) Pulmonary nodules Aortic stenosis Edema CAD (coronary artery disease) Diabetes type 2, controlled Elevated prostate specific antigen between 10 and 19 ng/ml Atrial fibrillation [place]'s disease Elevated morning serum cortisol level Surgical History History of cardiac cath Hx of tonsillectomy Hx of colonoscopy Family History Father Colon cancer Mother HTN (hypertension) Type 2 diabetes mellitus Brother No problems noted. Sister No problems noted. Son No problems noted. Son No problems noted. Son No problems noted. Daughter No problems noted. Daughter No problems noted. Social History Household Members: None Housing: Apartment Alcohol intake: former Year quit: 1979 Comment: pt politley refusing assistance to BR and alarms Patient Tobacco Use Status: Former Tobacco user Years Smoked: 45+ e-Cigarette/Vaping Use: Never Used Second Hand Smoke Exposure: No Advance Directives Date on File: 10/14/24 service: Yes Current occupational status: retired Current occupational exposures/hazards: No Cognitive needs: No Hearing needs: Yes Vision needs: No Review of Systems Const Denies chills, Denies fatigue, Denies fever(s), Denies frequent falls, Denies weakness and Reports weight gain ENT Denies dizziness Card Denies chest pain, Reports leg edema, Denies lightheadedness, Denies palpitations, Reports dyspnea and Reports dyspnea on exertion Resp Denies cough, Reports dyspnea and Reports dyspnea on exertion GI Denies hematochezia Musc Denies abnormal gait, Denies muscle weakness, Denies numbness, Denies radiating pain into limb and Denies tingling Neuro Denies abnormal gait, Denies dizziness, Denies frequent falls, Denies numbness, Denies tingling and Denies weakness Endo Denies fatigue and Denies palpitations Physical Exam Vital Signs: Last Vital Signs Pulse 64 11/12/24 09:33 BP 140/64 H 11/12/24 09:33 Pulse Ox 96 11/12/24 09:33 Oxygen Delivery Method Room Air 11/12/24 09:33 BMI result Body Mass Index 29.2 Const General: alert Neck Neck: Yes normal visual inspection, Yes full ROM and Yes no lymphadenopathy Chest Chest palpation & inspection: normal inspection of the chest Resp Auscultation: diminished lung sounds Cardio Rate: regular rate Rhythm: regular rhythm Heart sounds: S1 normal heart sound present and S2 normal heart sound present GI Palpation (GI): Soft to palpation and nontender Auscultation: normal bowel sounds Skin General skin exam: rashes and/or lesions noted Extrem General: No clubbing, No cyanosis and Yes edema Assessment & Plan Assessment & Plan (1) Pulmonary nodules: Code(s): R91.8 - Other nonspecific abnormal finding of lung field Category: Medical (2) Elevated diaphragm: Onset Date: ~10/13/24 Comment: Right side. Likely trauma. Asymptomatic Code(s): J98.6 - Disorders of diaphragm Category: Medical (3) Heart failure: Code(s): I50.9 - Heart failure, unspecified Category: Medical Qualifiers: Heart failure type: combined systolic and diastolic Heart failure chronicity: chronic Qualified Code(s): I50.42 - Chronic combined systolic (congestive) and diastolic (congestive) heart failure (4) GREER (obstructive sleep apnea): Code(s): G47.33 - Obstructive sleep apnea (adult) (pediatric) Category: Medical (5) Lower extremity edema: Code(s): R60.0 - Localized edema Category: Medical Plan Consider PEDRO as needed in lab PSG diuresis as tolerated F/U 3 months Orders: Orders RT PSG in-lab sleep study Today G47.33 - Obstructive sleep apnea (adult) (pediatric), I48.91 - Unspecified atrial fibrillation, I50.9 - Heart failure, unspecified Coding Level of Care Code Est Pt Level 4 (59551) Complex EM visit Add On G2211 Diagnoses Pulmonary nodules R91.8 Elevated diaphragm J98.6 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 Heart failure type: combined systolic and diastolic Heart failure chronicity: chronic GREER (obstructive sleep apnea) G47.33 Lower extremity edema R60.0 Time Spent (min) 17
[2024-11-12 09:33] VITALS: BP 140/64; PULSE 64; O2SAT 96; BMI 29.2
--- OUTSIDE RECORDS SUMMARY | 2024-11-12 09:57 | XMS_ITS | Patient Health Record ---
Author Organization [facility] Address [address] [place] [address] Care Team Providers Care Land Acquisition Analyst Name Role Phone Moises Winters Jr Reason For Referral No Information Plan Of Treatment No Information
--- OUTSIDE RECORDS SUMMARY | 2024-11-12 09:57 | XMS_ITS | Clinical Summary ---
Author Organization [facility] Address [address] [place] [address] Phone Care Team Providers Care Credit Reporter Name Role Phone Patrick Muniz MD Primary Care Provider [phone] Allergies Active Allergy Reactions Criticality Noted Date [...] patient's age to complete this topic Insurance [facility] Care Teams Credit Reporter Relationship Specialty Start Date End Date Patrick Muniz MD [address] [address] PCP - General Family Medicine 10/21/24
== END 2024-11-12 10:16 | disposition home or self-care (01) ==
LOC: HO.HPS 09:30
PROVIDERS: PCP Family Medicine; Visit Provider Hospitalist
DX: R91.8 Other nonspecific abnormal finding of lung field (principal); J98.6 Disorders of diaphragm; I50.42 Chronic combined systolic (congestive) and diastolic (congestive) heart failure; G47.33 Obstructive sleep apnea (adult) (pediatric); R60.0 Localized edema
CPT/HCPCS: 99214; G2211

== ENCOUNTER → 2024-11-12 09:29 | Outpatient (BNVA) | payer MEDICARE, SELFPAY | PROVIDERS: PCP Family Medicine; Visit Provider Hospitalist | DX: I50.42 Chronic combined systolic (congestive) and diastolic (congestive) heart failure (principal); M54.9 Dorsalgia, unspecified; R09.89 Other specified symptoms and signs involving the circulatory and respiratory systems; R91.8 Other nonspecific abnormal finding of lung field; J98.6 Disorders of diaphragm; R60.0 Localized edema; G47.33 Obstructive sleep apnea (adult) (pediatric) | CPT/HCPCS: 99212 ==

== ENCOUNTER 2024-11-14 10:39 | Outpatient (AMB) | payer BC, SELFPAY ==
--- OUTSIDE RECORDS SUMMARY | 2024-11-14 11:15 | XMS_ITS | Clinical Summary ---
Author Organization [facility] Address [address] [place] [address] Phone Care Team Providers Care Quill Skinner Name Role Phone Patrick Muniz MD Primary Care Provider [phone] Allergies Active Allergy Reactions Criticality Noted Date [...] patient's age to complete this topic Insurance [facility] Care Teams Quill Skinner Relationship Specialty Start Date End Date Patrick Muniz MD [address] [address] PCP - General Family Medicine 10/21/24
--- OUTSIDE RECORDS SUMMARY | 2024-11-14 11:15 | XMS_ITS | Patient Health Record ---
Author Organization [facility] Address [address] [place] [address] Care Team Providers Care Division Sergeant Name Role Phone Moises Winters Jr Reason For Referral No Information Plan Of Treatment No Information
--- NOTE | 2024-11-14 11:25 | HO.NEPHOV_ITS ---
Vital Signs 11/14/24 11:26 Height 5 ft 6 in Weight 178 lb BMI 28.7 BP 140/70 H Blood Pressure Location Lt brachial Position Sitting Pulse 76 Pulse Source Pulse Oximeter Pulse Oximetry (%) 95 Oxygen Delivery Method Room Air Intake Visit Reasons: [facility] Chainstitch Hemmer Required: No Accompanied by: Son Allergies hydralazine (Hydralazine) Allergy (Unknown, Verified 11/14/24 11:28) SEVERE HEADACHE HPI Comments Details: I had the pleasure of was seeing [place] in follow-up of his chronic kidney disease and hypertension. He has diabetes over 20 years. His blood sugar control is quite good. He recently had a hsopitalization for NSTEMI with reduced EF. He had MAYKEL at that time which was resolved. He underwent coroanry angiogram which did not show any occlusive CAD and decision was made for medical management. There was a thought he may have amyloidosis and is due for a PYP scan. He has prostate issues and is followed up by Dr. Francis. He denied chest pain, shortness of breath, proximal nocturnal dyspnea, orthopnea or pedal edema. He denies any peripheral arterial symptoms. He avoids nonsteroidal anti- inflammatory medications and maintain good hydration. [facility] Medical History (Updated 11/12/24 @ 21:49 by Delbert Finley MD) Lower extremity edema Sialadenitis Benign cyst of skin Chest pain RUQ pain Wheezing Elevated diaphragm (~10/13/24) Pulmonary nodules Aortic stenosis Edema CAD (coronary artery disease) Diabetes type 2, controlled Elevated prostate specific antigen between 10 and 19 ng/ml Atrial fibrillation [place]'s disease Elevated morning serum cortisol level Surgical History History of cardiac cath Hx of tonsillectomy Hx of colonoscopy Family History Father Colon cancer Mother HTN (hypertension) Type 2 diabetes mellitus Brother No problems noted. Sister No problems noted. Son No problems noted. Son No problems noted. Son No problems noted. Daughter No problems noted. Daughter No problems noted. Social History Household Members: None Housing: Apartment Alcohol intake: former Year quit: 1979 Comment: pt politley refusing assistance to BR and alarms Patient Tobacco Use Status: Former Tobacco user Years Smoked: 45+ e-Cigarette/Vaping Use: Never Used Second Hand Smoke Exposure: No Advance Directives Date on File: 10/14/24 service: Yes Current occupational status: retired Current occupational exposures/hazards: No Cognitive needs: No Hearing needs: Yes Vision needs: No Review of Systems Const All systems reviewed & are unremarkable except as noted in HPI and below Physical Exam Vital Signs: Last Vital Signs Pulse 76 11/14/24 11:26 BP 140/70 H 11/14/24 11:26 Pulse Ox 95 11/14/24 11:26 Oxygen Delivery Method Room Air 11/14/24 11:26 BMI result Body Mass Index 28.7 Const General: comfortable and no acute distress Orientation/consciousness: patient oriented x3 HEENT Head: Yes normocephalic Mouth: Normal oral and palatal mucosa present Eyes EOM: EOMs intact bilaterally Neck Neck: Yes supple Resp Auscultation: clear to auscultation bilaterally Cardio Jugular venous distension: no JVD Rate: regular rate GI Palpation (GI): Soft to palpation Auscultation: normal bowel sounds General: Yes no CVA tenderness Back/Spine/Pelvis Back: no CVA tenderness Skin General skin exam: no rashes or lesions noted Neuro General: patient oriented x3 and moves all extremities Extrem General: Yes no pedal edema Results Reviewed Nephrology Results: Hgb, (14.0-18.0) 11.6 g/dl L 11/10/24 WBC, (4.8-10.8) 9.4 X10*3/uL 11/10/24 Plt Count, (160-400) 225 X10*3/uL 11/10/24 Sodium, (135-145) 142 mmol/L 11/10/24 Potassium, (3.3-5.1) 4.6 mmol/L 11/10/24 Chloride, (96-108) 111 mmol/L H 11/10/24 Carbon Dioxide, (22-29) 25 mmol/L 11/10/24 BUN, (9-16) 24 mg/dL H 11/10/24 Creatinine, (0.5-1.4) 1.31 mg/dL 11/10/24 Calcium, (8.4-10.2) 9.4 mg/dL 10/29/24 Urine Protein, (Neg-Trace) 100 (2+) mg/dL H 11/10/24 Urine Creatinine 138.31 mg/dL 10/29/24 Protein/Creatinin Ratio, (<0.2) 0.17 10/29/24 Assessment & Plan Assessment & Plan (1) CKD (chronic kidney disease) stage 3, GFR 30-59 ml/min: Code(s): N18.30 - Chronic kidney disease, stage 3 unspecified Category: Medical Qualifiers: Chronic kidney disease stage 3 subtype: stage 3a (GFR 45-59) Qualified Code(s): N18.31 - Chronic kidney disease, stage 3a (2) Hypertension: Code(s): I10 - Essential (primary) hypertension Category: Medical Qualifiers: Hypertension type: primary hypertension Qualified Code(s): I10 - Essential (primary) hypertension Plan [place] has chronic kidney disease likely due to vascular disease. He recently had MAYKEL during NSTEMI which has resolved. He is awaiting a PYP scan. He has longstanding diabetes and hypertension. His RICK-inhibitor is on hold. His renal functions are stable. He is a great candidate for SGLT2 i. He is on statins. Her volume status was optimal. He avoids nonsteroidal anti- inflammatory medications and maintain good hydration. He is followed by cardiology. He can continue on his current medication regimen. I did not make any medication changes today. Follow-up lab work were ordered. All questions answered. Orders: Orders Creatinine 3 Months I10 - Essential (primary) hypertension, N18.31 - Chronic kidney disease, stage 3a Blood Urea Nitrogen 3 Months I10 - Essential (primary) hypertension, N18.31 - Chronic kidney disease, stage 3a Electrolytes 3 Months I10 - Essential (primary) hypertension, N18.31 - Chronic kidney disease, stage 3a Protein Creatinine Ratio, Ur 3 Months I10 - Essential (primary) hypertension, N18.31 - Chronic kidney disease, stage 3a Coding Level of Care Code Est Pt Level 4 (40756) Diagnoses Stage 3a chronic 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 Chronic kidney disease stage 3 subtype: stage 3a (GFR 45-59) Primary hypertension I10 Hypertension type: primary hypertension
[2024-11-14 11:26] VITALS: BP 140/70; PULSE 76; O2SAT 95; BMI 28.7
== END 2024-11-14 11:58 | disposition home or self-care (01) ==
LOC: HO.HKA 10:40
PROVIDERS: PCP Family Medicine; Visit Provider Internal Medicine Nephrology
DX: N18.31 Chronic kidney disease, stage 3a (principal); I10 Essential (primary) hypertension
CPT/HCPCS: 99214

== ENCOUNTER 2024-11-18 07:54 | Outpatient (AMB) | payer BC, SELFPAY ==
--- OUTSIDE RECORDS SUMMARY | 2024-11-18 07:56 | XMS_ITS | Patient Health Record ---
Author Organization [facility] Address [address] [place] [address] Care Team Providers Care Dried Yeast Supervisor Name Role Phone Moises Winters Jr Reason For Referral No Information Plan Of Treatment No Information
--- OUTSIDE RECORDS SUMMARY | 2024-11-18 07:56 | XMS_ITS | Clinical Summary ---
Author Organization [facility] Address [address] [place] [address] Phone Care Team Providers Care Subgrade Roller Operator Name Role Phone Patrick Muniz MD Primary Care Provider [phone] Allergies Active Allergy Reactions Criticality Noted Date [...] patient's age to complete this topic Insurance [facility] Care Teams Subgrade Roller Operator Relationship Specialty Start Date End Date Patrick Muniz MD [address] [address] PCP - General Family Medicine 10/21/24
[2024-11-18 08:24] LABS: Prothrombin Time Whole Bld POC 24.7 sec (11.1-13.5); ~PT, ~INR - Anti Coag Clinic 2.1 (0.9-1.1)
--- NOTE | 2024-11-18 08:24 | MHC.OFFVISCO ---
Intake Intake Visit Reasons: Anticoagulation Allergies hydralazine (Hydralazine) Allergy (Unknown, Verified 11/18/24 08:17) SEVERE HEADACHE Medication List - Last Reconciled 11/18/24 by Cynthia Wood RN amlodipine 5 mg PO DAILY aspirin (Adult Low Dose Aspirin) 81 mg PO DAILY blood sugar diagnostic As directed furosemide (Lasix) 40 mg PO DAILY glipizide 2.5 mg PO DAILY isosorbide dinitrate 30 mg PO DAILY lancets One Touch Ultra Test Strips As directed to test blood sugar twice a day. Ninety day supply lancets (OneTouch UltraSoft 2 Lancet) As directed levothyroxine 125 mcg PO DAILY@0600 90 days metoprolol succinate ER 25 mg PO DAILY 90 days rosuvastatin 20 mg PO BEDTIME warfarin 4 mg See Protocol PO DAILY@1800 Nursing Note INR: 2.1- in therapeutic range of 2-3 Medications and supplements reviewed- no changes, med list requested No changes in health, diet, medications, or supplements, Denies any signs and symptoms of bleeding or bruising or clotting. Bleeding, bruising, clotting discussed Nutritional guidance given Dose: 4mg x 6, 2mg x 1 F/U INR: 2 weeks Patient verbalizes understanding of instructions given recent hosp chf, c.o insomnia, states has tele appt with pcp chepe Christianson-Coala Initial Assessment Social Hx Patient Tobacco Use Status: Former Tobacco user alcohol intake: former Alcohol intake frequency: does not drink Coding Level of Care Code Est Patient Level 1 Diagnoses Current use of anticoagulant therapy Z79.01 Assessment & Plan Assessment & Plan (1) Current use of anticoagulant therapy: Comment: critical high INR Code(s): Z79.01 - terminal block assembler (current) use of 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
== END 2024-11-18 08:32 | disposition home or self-care (01) ==
LOC: HO.ACS 07:54
PROVIDERS: PCP Family Medicine; Visit Provider Internal Medicine Medical Oncology
DX: Z79.01 Long term (current) use of anticoagulants (principal)

== ENCOUNTER → 2024-11-18 07:54 | Outpatient (BNVA) | payer BC, SELFPAY | PROVIDERS: PCP Family Medicine; Visit Provider Internal Medicine Medical Oncology | DX: I48.0 Paroxysmal atrial fibrillation (principal); Z79.01 Long term (current) use of anticoagulants; Z51.81 Encounter for therapeutic drug level monitoring | CPT/HCPCS: 85610; 99211 ==

== ENCOUNTER 2024-11-19 10:11 | Outpatient (AMB) | payer BC, SELFPAY ==
--- NOTE | 2024-11-19 09:50 | MHC.PC.OV ---
Intake Visit Reasons: f/u labs via telemed Intake Note: patient is scheduled to review lab results Tabular Typist Required: No Allergies hydralazine (Hydralazine) Allergy (Unknown, Verified 11/19/24 09:51) SEVERE HEADACHE Medication List - Last Reconciled 11/19/24 by Patrick Muniz MD aspirin (Adult Low Dose Aspirin) 81 mg PO DAILY blood sugar diagnostic As directed empagliflozin (Jardiance) 10 mg PO DAILY furosemide (Lasix) 40 mg PO DAILY glipizide 2.5 mg PO DAILY isosorbide dinitrate 30 mg PO DAILY lancets One Touch Ultra Test Strips As directed to test blood sugar twice a day. Ninety day supply lancets (OneTouch UltraSoft 2 Lancet) As directed levothyroxine 125 mcg PO DAILY@0600 90 days metoprolol succinate ER 25 mg PO DAILY 90 days rosuvastatin 20 mg PO BEDTIME trazodone 25 mg (1/2 x 50 mg) PO BEDTIME PRN 30 days warfarin 4 mg See Protocol PO DAILY@1800 Tobacco use date assessed: 07/17/23 Dental Screening Dental Screen Date: 07/17/23 HPI f/u labs via telemed HPI Details 89 y/o male presents to f/u labs via telemedicine. Had seen Cardiology 11/10/24. They had started him on Lasix 40mg p.o. daily. They had sent a script for Jardiance but this was too expensive. Holding amlodipine, isosorbide. Labs drawn 11/10/24. Reviewed labs with pt Anemia. Creatinine level 1.31 mg/dL. BNP 1484 pg/mL. Had complaints of R hip/groin pain. R hip x-ray 10/30/24 unremarkable. Chest x-ray 10/30/24 showed no acute cardiopulmonary process. Elevated right hemidiaphragm, left upper lobe calcified granuloma and mild prominence of right minor fissure are stable. Pt notes he is now taking Lasix. [facility] Medical History (Updated 11/12/24 @ 21:49 by Delbert Finley MD) Lower extremity edema Sialadenitis Benign cyst of skin Chest pain RUQ pain Wheezing Elevated diaphragm (~10/13/24) Pulmonary nodules Aortic stenosis Edema CAD (coronary artery disease) Diabetes type 2, controlled Elevated prostate specific antigen between 10 and 19 ng/ml Atrial fibrillation Jayy's disease Elevated morning serum cortisol level Surgical History History of cardiac cath Hx of tonsillectomy Hx of colonoscopy Family History Father Colon cancer Mother HTN (hypertension) Type 2 diabetes mellitus Brother No problems noted. Sister No problems noted. Son No problems noted. Son No problems noted. Son No problems noted. Daughter No problems noted. Daughter No problems noted. Social History Household Members: None Housing: Apartment Alcohol intake: former Year quit: 1979 Comment: pt politley refusing assistance to BR and alarms Patient Tobacco Use Status: Former Tobacco user Years Smoked: 45+ e-Cigarette/Vaping Use: Never Used Second Hand Smoke Exposure: No Advance Directives Date on File: 10/14/24 service: Yes Current occupational status: retired Current occupational exposures/hazards: No Cognitive needs: No Hearing needs: Yes Vision needs: No Questionnaire Thrive Questionnaire Date Thrive assessed: 07/24/24 KOBE-7 AMB Questionnaire KOBE-7 Date KOBE - 7 assessed: 07/17/23 Source: Developed by Drs. Boston Abdi, Ermelinda Hutton, Nagi Berkowitz and colleagues, with an educational noni from [employer]. Physical exam (Primary Care) Tobacco/Smoking Status: Tobacco use Status Tobacco use date assessed 07/17/23 11/19/24 09:55 Patient Tobacco Use Status Former Tobacco user 11/19/24 09:55 e-Cigarette/Vaping Use Never Used 11/19/24 09:55 Thrive Assessment: Date of Thrive Assessment Date Thrive assessed 07/24/24 11/19/24 09:55 Telehealth Telehealth Telehealth Platform: Telephone Location of provider rendering services: practice address Location of patient: address on file Patient Identification confirmed using: Name, : Yes Telehealth method: voice only Patient verbally consented to treatment: Yes Patient verbally consented to billing insurance company: Yes Patient informed of any privacy concerns related to visit: Yes Minutes spent on Phone/Video with Pt.: 22 Coding Level of Care Code Tele Est Pt Level 3 (30182) Diagnoses 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 Heart failure chronicity: chronic Heart failure type: combined systolic and diastolic Lower extremity edema R60.0 Acute kidney injury N17.9 Diabetes type 2, controlled E11.9 Assessment & Plan Assessment & Plan (1) Heart failure: Code(s): I50.9 - Heart failure, unspecified Category: Medical Qualifiers: Heart failure chronicity: chronic Heart failure type: combined systolic and diastolic Qualified Code(s): I50.42 - Chronic combined systolic (congestive) and diastolic (congestive) heart failure Plan: Recent BNP is rather high at 1484 Patient had been sent from the hospital with a script for Lasix but has not been taking it. Starting this medication about a week ago. Will continue to monitor Patient would benefit from SGLT2 medication Jardiance was too expensive Farxiga may be also though will try this. (2) Lower extremity edema: Code(s): R60.0 - Localized edema Category: Medical Plan: As above, patient has just started his diuretic again (3) Acute kidney injury: Code(s): N17.9 - Acute kidney failure, unspecified Category: Medical Plan: Renal function is stable He is followed by Dr. Mcgrath (4) Diabetes type 2, controlled: Code(s): E11.9 - Type 2 diabetes mellitus without complications Category: Medical Plan: Blood sugar was well controlled at last check A1c He will be due to recheck this with next set of labs Patient would benefit from SGLT2 medication Jardiance was too expensive Farxiga may be also though will try this. Plan Patient has a large medication regimen and says he has been getting confused about this. Would benefit from a visiting nurse to help him arrange in manage his medications as well as watch for adverse effects. VNA ordered He will follow-up in a few weeks in the illness to re-evaluate and and review repeat labs. Orders: Orders B Type Natriuretic Peptide Today I50.42 - Chronic combined systolic (congestive) and diastolic (congestive) heart failure, I50.9 - Heart failure, unspecified Complete Blood Count Auto Diff Today I50.9 - Heart failure, unspecified, Z00.00 - Encounter for general adult medical examination without abnormal findings Comprehensive Met. Panel Today I50.9 - Heart failure, unspecified Hemoglobin A1c Today R73.01 - Impaired fasting glucose Referrals [facility]/Hospice Referral E03.9 - Hypothyroidism, unspecified, E11.9 - Type 2 diabetes mellitus without complications, I25.10 - Atherosclerotic heart disease of telida coronary artery without angina pectoris, I50.42 - Chronic combined systolic (congestive) and diastolic (congestive) heart failure, N18.31 - Chronic kidney disease, stage 3a Medications: New dapagliflozin propanediol (Farxiga) 5 mg PO QAM 90 tabs 2RF 90 days
--- OUTSIDE RECORDS SUMMARY | 2024-11-19 10:43 | XMS_ITS | Patient Health Record ---
Author Organization [facility] Address [address] [place] [address] Care Team Providers Care Psych Rn Name Role Phone Moises Winters Jr Reason For Referral No Information Plan Of Treatment No Information
--- OUTSIDE RECORDS SUMMARY | 2024-11-19 10:43 | XMS_ITS | Clinical Summary ---
Author Organization [facility] Address [address] [place] [address] Phone Care Team Providers Care Mash Filter Press Operator Name Role Phone Patrick Muniz MD Primary Care Provider [phone] Allergies Active Allergy Reactions Criticality Noted Date [...] (02/07/2023): May 20, 2019 Entered By: MC DNA Comment: followed by optometry Benign prostatic hyperplasia [...] patient's age to complete this topic Insurance [facility] Care Teams Mash Filter Press Operator Relationship Specialty Start Date End Date Patrick Muniz MD [address] [address] PCP - General Family Medicine 10/21/24
== END 2024-11-19 16:01 | disposition home or self-care (01) ==
LOC: HO.HMCFM 10:11
PROVIDERS: PCP Family Medicine; Visit Provider Family Medicine
DX: I50.42 Chronic combined systolic (congestive) and diastolic (congestive) heart failure (principal); R60.0 Localized edema; N17.9 Acute kidney failure, unspecified; E11.9 Type 2 diabetes mellitus without complications

== ENCOUNTER 2024-11-25 07:52 | Outpatient (AMB) | payer BC, SELFPAY ==
--- OUTSIDE RECORDS SUMMARY | 2024-11-25 07:54 | XMS_ITS | Clinical Summary ---
Author Organization [facility] Address [address] [place] [address] Phone Care Team Providers Care Beaver Trapper Name Role Phone Patrick Muniz MD Primary Care Provider [phone] Allergies Active Allergy Reactions Criticality Noted Date [...] Insurance [facility] Care Teams Beaver Trapper Relationship Specialty Start Date End Date Patrick Muniz MD [address] [address] PCP - General Family Medicine 10/21/24
--- OUTSIDE RECORDS SUMMARY | 2024-11-25 07:54 | XMS_ITS | Patient Health Record ---
Author Organization [facility] Address [address] [place] [address] Care Team Providers Care Farm Helper Name Role Phone Moises Winters Jr [phone] Reason For Referral No Information Plan Of Treatment No Information
[2024-11-25 08:27] LABS: Prothrombin Time Whole Bld POC 27.4 sec (11.1-13.5); ~PT, ~INR - Anti Coag Clinic 2.3 (0.9-1.1)
--- NOTE | 2024-11-25 08:32 | MHC.OFFVISCO ---
Intake Intake Visit Reasons: Anticoagulation Allergies hydralazine (Hydralazine) Allergy (Unknown, Verified 11/25/24 08:19) SEVERE HEADACHE Medication List - Last Reconciled 11/25/24 by Elisa Jon RN aspirin (Adult Low Dose Aspirin) 81 mg PO DAILY blood sugar diagnostic As directed dapagliflozin propanediol (Farxiga) 5 mg PO QAM 90 days empagliflozin (Jardiance) 10 mg PO DAILY furosemide (Lasix) 40 mg PO DAILY glipizide 2.5 mg PO DAILY isosorbide dinitrate 30 mg PO DAILY lancets One Touch Ultra Test Strips As directed to test blood sugar twice a day. Ninety day supply lancets (OneTouch UltraSoft 2 Lancet) As directed levothyroxine 125 mcg PO DAILY@0600 90 days metoprolol succinate ER 25 mg PO DAILY 90 days rosuvastatin 20 mg PO BEDTIME trazodone 25 mg (1/2 x 50 mg) PO BEDTIME PRN 30 days warfarin 4 mg See Protocol PO DAILY@1800 Nursing Note INR: 2.3 in therapeutic range Medications and supplements reviewed No changes in health, diet, medications, or supplements, Denies any signs and symptoms of bleeding or bruising or clotting. Bleeding, bruising, clotting discussed Nutritional guidance given Dose: 2MG SUNDAY/ 4MG X 6 DAYS F/U INR: 1 WEEK Patient verbalizes understanding of instructions given Anti-Coag Initial Assessment Social Hx Patient Tobacco Use Status: Former Tobacco user alcohol intake: former Alcohol intake frequency: does not drink Coding Level of Care Code Est Patient Level 1 Diagnoses Current use of anticoagulant therapy Z79.01 Results AMB INR Fingerstick AMB INR Fingerstick 2.3 Last Edit by Elisa Jon RN on 11/25/24 08:28 MANUAL ENTRY Assessment & Plan Assessment & Plan (1) Current use of anticoagulant therapy: Comment: critical high INR Code(s): Z79.01 - rn long term care (current) use of 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
== END 2024-11-25 08:36 | disposition home or self-care (01) ==
LOC: HO.ACS 07:52
PROVIDERS: PCP Family Medicine; Visit Provider Internal Medicine Medical Oncology
DX: Z79.01 Long term (current) use of anticoagulants (principal)

== ENCOUNTER → 2024-11-25 07:52 | Outpatient (BNVA) | payer BC, SELFPAY | PROVIDERS: PCP Family Medicine; Visit Provider Internal Medicine Medical Oncology | DX: I48.0 Paroxysmal atrial fibrillation (principal); Z79.01 Long term (current) use of anticoagulants; Z51.81 Encounter for therapeutic drug level monitoring | CPT/HCPCS: 85610; 99211 ==

== ENCOUNTER 2024-12-03 10:59 | Outpatient (AMB) | payer BC, SELFPAY ==
[2024-12-03 11:24] VITALS: BP 140/64; PULSE 63; BMI 27.4
--- NOTE | 2024-12-03 11:24 | A.OFFVIS_ITS ---
Vital Signs 12/03/24 11:24 Height 5 ft 6 in Weight 169 lb 12.095 oz BMI 27.4 BP 140/64 H Blood Pressure Location Lt brachial Position Sitting Pulse 63 Intake Visit Reasons: 3 wk f/up KM Intake Note: 3 week follow-up feeling good leg swelling Klystrom Tube Tester Required: No Allergies hydralazine (Hydralazine) Allergy (Unknown, Verified 11/25/24 08:19) SEVERE HEADACHE Medication List - Last Reconciled 12/03/24 by Leon Gilbert MD aspirin (Adult Low Dose Aspirin) 81 mg PO DAILY blood sugar diagnostic As directed dapagliflozin propanediol (Farxiga) 5 mg PO QAM 90 days empagliflozin (Jardiance) 10 mg PO DAILY furosemide (Lasix) 40 mg PO DAILY glipizide ER 2.5 mg PO DAILY lancets One Touch Ultra Test Strips As directed to test blood sugar twice a day. Ninety day supply lancets (OneTouch UltraSoft 2 Lancet) As directed levothyroxine 125 mcg PO DAILY@0600 90 days metoprolol succinate ER 25 mg PO DAILY 90 days rosuvastatin 20 mg PO BEDTIME spironolactone 25 mg PO DAILY trazodone 25 mg (1/2 x 50 mg) PO BEDTIME PRN 30 days warfarin 4 mg See Protocol PO DAILY@1800 HPI Comments Details: [age] year gentleman with chronic atrial fibrillation on Coumadin, peripheral edema and recent admission with congestive heart failure. He was transferred to [facility] where she underwent cardiac catheterization which showed no significant coronary disease as before. He has mild LV dysfunction by echocardiography. He has low voltage on EKG with a small pericardial effusion and we were planning to work him up for amyloidosis. Apparently saw the [facility] RN and was urgently brought back because she was very concerned about how he looked like. He is saying that he gets short of breath easily. Is denying any chest discomfort currently. He is currently not on any diuretics. He has gained 5 lb in the last few days. He has significant peripheral edema. He is also complaining of choking sensation which wakes him from his sleep after few hour of sleep. He is saying he has to cough to clear his throat and this is something happening more recently. 12/03/2024: He is here for follow-up. Recently seen in the office when he was in congestive heart failure. Started on Lasix. He has done well with that. He continues to have some edema doses but overall his breathing is better. Blood pressure is elevated. [facility] Medical History (Updated 11/12/24 @ 21:49 by Delbert Finley MD) Lower extremity edema Sialadenitis Benign cyst of skin Chest pain RUQ pain Wheezing Elevated diaphragm (~10/13/24) Pulmonary nodules Aortic stenosis Edema CAD (coronary artery disease) Diabetes type 2, controlled Elevated prostate specific antigen between 10 and 19 ng/ml Atrial fibrillation Jayy's disease Elevated morning serum cortisol level Surgical History History of cardiac cath Hx of tonsillectomy Hx of colonoscopy Family History Father Colon cancer Mother HTN (hypertension) Type 2 diabetes mellitus Brother No problems noted. Sister No problems noted. Son No problems noted. Son No problems noted. Son No problems noted. Daughter No problems noted. Daughter No problems noted. Social History Household Members: None Housing: Apartment Alcohol intake: former Year quit: 1979 Comment: pt politley refusing assistance to BR and alarms Patient Tobacco Use Status: Former Tobacco user Years Smoked: 45+ e-Cigarette/Vaping Use: Never Used Second Hand Smoke Exposure: No Advance Directives Date on File: 10/14/24 service: Yes Current occupational status: retired Current occupational exposures/hazards: No Cognitive needs: No Hearing needs: Yes Vision needs: No Review of Systems Const Denies chills, Denies fatigue, Denies fever(s), Denies frequent falls, Denies weakness, Denies weight gain and Denies weight loss ENT Denies dizziness Card Denies chest pain, Denies leg edema, Denies lightheadedness, Denies palpitations, Denies dyspnea, Denies dyspnea on exertion, Denies orthopnea and Denies other (loss of consciousness) Resp Denies cough, Denies dyspnea and Denies dyspnea on exertion GI Denies hematochezia and Denies change in stool character Musc Denies abnormal gait, Denies muscle weakness, Denies numbness, Denies radiating pain into limb and Denies tingling Neuro Denies abnormal gait, Denies dizziness, Denies frequent falls, Denies numbness, Denies tingling and Denies weakness Endo Denies fatigue and Denies palpitations Physical Exam Vital Signs: Last Vital Signs Pulse 63 12/03/24 11:24 BP 140/64 H 12/03/24 11:24 BMI result Body Mass Index 27.4 GENERAL APPEARANCE: in no acute distress, pleasant. NECK: no carotid bruit, no jugular venous distention. SKIN: no suspicious lesions, warm and dry. HEART: Systolic murmur, irregular rate and rhythm. LUNGS: clear to auscultation bilaterally. ABDOMEN: soft, nontender. EXTREMITIES: +1 edema right more than left lower extremity. PERIPHERAL PULSES: equal. NEUROLOGIC: No gross deficits, AAO X 3 Assessment & Plan Assessment & Plan (1) Essential hypertension: Code(s): I10 - Essential (primary) hypertension Category: Medical (2) Heart failure: Code(s): I50.9 - Heart failure, unspecified Category: Medical Qualifiers: Heart failure chronicity: chronic Heart failure type: combined systolic and diastolic Qualified Code(s): I50.42 - Chronic combined systolic (congestive) and diastolic (congestive) heart failure Plan [age] year gentleman with congestive heart failure. EF is 40-45%. He has a small pericardial effusion in atrial enlargement. We will do PYP scan to rule out amyloidosis. Adding spironolactone 25 mg daily. He will have blood workup in a week to check potassium. Overall is doing better with medications at this point. He is on Coumadin and does not have any significant coronary disease. I have advised him to stop the baby aspirin. Follow-up in few months. Thank you for allowing me to participate in the care of your patient. Please feel free to contact me if you have any questions. Orders: Orders Complete Blood Count no Diff 1 Week I50.42 - Chronic combined systolic (congestive) and diastolic (congestive) heart failure Basic Metabolic Panel 1 Week I50.42 - Chronic combined systolic (congestive) and diastolic (congestive) heart failure B Type Natriuretic Peptide 1 Week I50.42 - Chronic combined systolic (congestive) and diastolic (congestive) heart failure Medications: New spironolactone 25 mg PO DAILY 60 tabs 3RF I50.42 - Chronic combined systolic (congestive) and diastolic (congestive) heart failure Coding Level of Care Code Est Pt Level 4 (90238) Diagnoses Essential hypertension I10 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 Heart failure chronicity: chronic Heart failure type: combined systolic and diastolic
--- OUTSIDE RECORDS SUMMARY | 2024-12-03 12:05 | XMS_ITS | Patient Health Record ---
Author Organization [facility] Address [address] [place] [address] Care Team Providers Care Airconditioning Drafting Officer Name Role Phone Moises Winters Jr Reason For Referral No Information Plan Of Treatment No Information
--- OUTSIDE RECORDS SUMMARY | 2024-12-03 12:05 | XMS_ITS | Clinical Summary ---
Author Organization [facility] Address [address] [place] [address] Phone Care Team Providers Care Industrial Furnace Fabricator Name Role Phone Patrick Muniz MD Primary Care Provider [phone] Allergies Active Allergy Reactions Criticality Noted Date [...] patient's age to complete this topic Insurance [facility] Care Teams Industrial Furnace Fabricator Relationship Specialty Start Date End Date Patrick Muniz MD [address] [address] PCP - General Family Medicine 10/21/24
== END 2024-12-03 12:06 | disposition home or self-care (01) ==
LOC: HO.HCS 10:59
PROVIDERS: PCP Family Medicine; Visit Provider Internal Medicine Cardiovascular Disease
DX: I10 Essential (primary) hypertension (principal); I50.42 Chronic combined systolic (congestive) and diastolic (congestive) heart failure
CPT/HCPCS: 99214

== ENCOUNTER 2024-12-09 07:45 | Outpatient (AMB) | payer BC, SELFPAY ==
--- OUTSIDE RECORDS SUMMARY | 2024-12-09 07:48 | XMS_ITS | Patient Health Record ---
Author Organization [facility] Address [address] [place] [address] Care Team Providers Care Inside Sales Specialist Name Role Phone Moises Winters Jr Reason For Referral No Information Plan Of Treatment No Information
--- OUTSIDE RECORDS SUMMARY | 2024-12-09 07:48 | XMS_ITS | Clinical Summary ---
Author Organization [facility] Address [address] [place] [address] Phone Care Team Providers Care English Language Learner Teacher Name Role Phone Patrick Muniz MD Primary Care Provider [phone] Allergies Active Allergy Reactions Criticality Noted Date [...] to complete this topic Insurance [facility] Care Teams English Language Learner Teacher Relationship Specialty Start Date End Date Patrick Muniz MD [address] [address] PCP - General Family Medicine 10/21/24
--- NOTE | 2024-12-09 08:03 | MHC.OFFVIS ---
Intake Visit Reasons: 6m/PVR Intake Note: Patient is present for 6m Urology Medication:TAMSULOSIN,TADALAFIL Antibiotic Allergy:NONE Blood Thinner:WARFARIN Todays PVR:200 ML Exhibit Carpenter Required: No Accompanied by: Self / Same As Patient Allergies hydralazine (Hydralazine) Allergy (Unknown, Verified 12/09/24 08:05) SEVERE HEADACHE HPI Comments Details: Boston Rivers is a very pleasant male. He is a patient of Dr Muniz and Dr Vuong at the [facility]. He is seen for the following urologic conditions. 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 Prior evaluation for [place]'s disease with Endocrinology. Has lab work that is upper limit of normal for a number of these evaluations - subclinical Jayy's disease Elevated PSA/Abnormal NEO: Current management is medication with 5AR. Laboratory investigations include 10/22 , a total PSA evaluation 4.99 03/24 , a total PSA evaluation - reports as 3.5 09/22 3.0 09/23 1.4, 03/27 3.4, 09/25 FSH 56 T 273, 04/27 FSH 52, LH 22, T 177, PSA 1.3, 10/27 FSH 53 LH 42 E 32, 12/27 P 1.2, 11/27 P 1.4 Individualized Prostate Cancer Risk Calculator 5-10% high risk, Would like to continue with observation and understands and accepts the risks of a possible delay in diagnosis. Symptoms include 09/22 , nocturia, x 1, and are improving. Overall symptoms are mild. Erectile dysfunction Combination of daily and on demand tadalafil [facility] Medical History (Updated 11/12/24 @ 21:49 by Delbert Finley MD) Lower extremity edema Sialadenitis Benign cyst of skin Chest pain RUQ pain Wheezing Elevated diaphragm (~10/13/24) Pulmonary nodules Aortic stenosis Edema CAD (coronary artery disease) Diabetes type 2, controlled Elevated prostate specific antigen between 10 and 19 ng/ml Atrial fibrillation Jayy's disease Elevated morning serum cortisol level Surgical History History of cardiac cath Hx of tonsillectomy Hx of colonoscopy Family History Father Colon cancer Mother HTN (hypertension) Type 2 diabetes mellitus Brother No problems noted. Sister No problems noted. Son No problems noted. Son No problems noted. Son No problems noted. Daughter No problems noted. Daughter No problems noted. Social History Household Members: None Housing: Apartment Alcohol intake: former Year quit: 1979 Comment: pt politley refusing assistance to BR and alarms Patient Tobacco Use Status: Former Tobacco user Years Smoked: 45+ e-Cigarette/Vaping Use: Never Used Second Hand Smoke Exposure: No Advance Directives Date on File: 10/14/24 service: Yes Current occupational status: retired Current occupational exposures/hazards: No Cognitive needs: No Hearing needs: Yes Vision needs: No Review of Systems Const Denies chills and Denies fever(s) Card Reports no additional complaints and Denies syncope Resp Denies cough GI Denies abdominal pain and Denies heartburn Reports as per HPI and Denies change in libido Neuro Denies syncope Psych Denies change in libido Endo Denies change in libido Physical Exam Const General: cooperative, healthy appearing, comfortable and no acute distress Orientation/consciousness: patient oriented x3 HEENT Face and sinus: Yes normal facial exam Mouth: moist mucous membranes Neck Neck: Yes normal visual inspection, Yes full ROM and Yes trachea midline Chest Chest palpation & inspection: normal inspection of the chest Resp Effort & Inspection: normal respiratory effort, able to speak in complete sentences and no respiratory distress GI Inspection: Yes normal to inspection Back/Spine/Pelvis Cervical Spine: normal cervical lordosis Thoracic/Lumbar Spine: thoracic and lumbar spine normal to inspection Skin General skin exam: no rashes or lesions noted Neuro General: patient oriented x3, gait normal, tone normal and moves all extremities Extrem General: Yes normal to inspection and Yes capillary refill normal Assessment & Plan Assessment & Plan (1) BPH w urinary obs/LUTS: Code(s): N40.1 - Benign prostatic hyperplasia with lower urinary tract symptoms; N13.8 - Other obstructive and reflux uropathy Category: Medical Plan Six-month follow-up Orders: Orders Prostate Specific Antigen 6 Months N13.8 - Other obstructive and reflux uropathy, N40.1 - Benign prostatic hyperplasia with lower urinary tract symptoms Medications: Changed From tamsulosin 0.4 mg PO BEDTIME 30 caps 2RF 30 days N13.8 - Other obstructive and reflux uropathy, N40.1 - Benign prostatic hyperplasia with lower urinary tract symptoms To tamsulosin 0.4 mg PO BEDTIME 90 caps 1RF 90 days N13.8 - Other obstructive and reflux uropathy, N40.1 - Benign prostatic hyperplasia with lower urinary tract symptoms Refilled tadalafil [id number] [facility] [id number] Member [id number] 5 mg PO DAILY 90 tabs 1RF BPH 90 days N13.8 - Other obstructive and reflux uropathy, N40.1 - Benign prostatic hyperplasia with lower urinary tract symptoms Patient Instructions: This note is constructed using voice recognition software. While every effort has been made to ensure accuracy cafeteria helper errors may have been included. Imaging studies, laboratory and physical exam results were discussed and reviewed in detail. No major barriers to patient understanding were identified. An opportunity to ask questions regarding the treatment plan was provided. All questions were answered. The patient expressed understanding and agreement with the above treatment plan. The patient is aware they should contact our office by phone for worsening of their current condition or the appearance of new urologic symptoms. Compliance is encouraged with any medications and followup testing that is ordered. It is a privilege to participate in the urologic care of your patient. If you have any questions or concerns regarding treatment for the above conditions, or other urologic issues, please do not hesitate to contact me. The office telephone contact is [phone]. Sincerely, Dr Dennis Francis MD, [facility] - Urology Compassionate Specialist Care for the Genitourinary System Coding Level of Care Code Est Pt Level 3 (80449) Complex EM visit Add On G2211 Diagnoses BPH w urinary obs/LUTS N40.1; N13.8
== END 2024-12-09 08:59 | disposition home or self-care (01) ==
LOC: HO.HUSH 07:46
PROVIDERS: PCP Family Medicine; Visit Provider Urology
DX: R39.15 Urgency of urination (principal); N40.1 Benign prostatic hyperplasia with lower urinary tract symptoms; N13.8 Other obstructive and reflux uropathy
CPT/HCPCS: 99213

== ENCOUNTER → 2024-12-09 07:45 | Outpatient (BNVA) | payer BC, SELFPAY | PROVIDERS: PCP Family Medicine; Visit Provider Urology | DX: N40.1 Benign prostatic hyperplasia with lower urinary tract symptoms (principal) | CPT/HCPCS: 81003 ==

== ENCOUNTER 2024-12-11 06:46 | Outpatient (REF) | payer BC, SELFPAY ==
--- OUTSIDE RECORDS SUMMARY | 2024-12-11 06:49 | XMS_ITS | Patient Health Record ---
Author Organization [facility] Address [address] [place] [address] Care Team Providers Care Flight Coordinator Name Role Phone Moises Winters Jr Reason For Referral No Information Plan Of Treatment No Information
--- OUTSIDE RECORDS SUMMARY | 2024-12-11 06:49 | XMS_ITS | Clinical Summary ---
Author Organization [facility] Address [address] [place] [address] Phone Care Team Providers Care Cone Classifier Tender Name Role Phone Patrick Muniz MD Primary Care Provider [phone] Allergies Active Allergy Reactions Criticality Noted Date [...] age to complete this topic Insurance [facility] Care Teams Cone Classifier Tender Relationship Specialty Start Date End Date Patrick Muniz MD [address] [address] PCP - General Family Medicine 10/21/24
[2024-12-11 07:07] LABS: MANUAL DIFF FLAG NO
[2024-12-11 07:52] LABS: Hematocrit 36.8 % (42.0-52.0); Hemoglobin 12.0 g/dl (14.0-18.0); Imm Gran Abs Auto 0.01 X10*3/uL (0.00-0.03); Imm Gran Pct Auto 0.1 % (0.0-0.4); Lymphocytes Absolute Auto 1.3 X10*3/uL (1.2-4.9); Mean Corpuscular HGB Conc 32.6 g/dl (31.0-36.0); Mean Corpuscular Hemoglobin 35.6 pg (27.0-33.0); Mean Corpuscular Volume 109.2 fL (80.0-98.0); NRBC Abs Auto 0.000 X10*3/uL (0.0-0.012); NRBC Pct Auto 0.0 /100WBC (0.0-0.2); Platelet Count 176 X10*3/uL (160-400); Red Blood Count 3.37 X10*6/uL (4.60-5.80); White Blood Count 8.2 X10*3/uL (4.8-10.8)
[2024-12-11 07:58] LABS: Hemoglobin A1C 174.1064 umol/L; Total Hemoglobin (HGBA1C) 3231.4221 umol/L
[2024-12-11 08:30] LABS: Alanine Aminotransferase 20 U/L (0-40); Albumin Level 3.9 g/dL (3.5-5.0); Alkaline Phosphatase 101 U/L (39-117); Anion Gap 11 (12-20); Aspartate Amino Transferase 28 U/L (5-37); Blood Urea Nitrogen 41 mg/dL (9-16); Calcium 9.0 mg/dL (8.4-10.2); Carbon Dioxide 30 mmol/L (22-29); Chloride 106 mmol/L (96-108); Estimated Glomerular Filt Rate 45; Potassium 4.5 mmol/L (3.3-5.1); Sodium 142 mmol/L (135-145); Total Protein 6.7 g/dL (6.5-8.0)
[2024-12-11 09:35] LABS: B Type Natriuretic Peptide 1359 pg/mL (<100)
== END 2024-12-11 06:47 | disposition home or self-care (01) ==
LOC: HO.LAB 06:46
PROVIDERS: PCP Family Medicine; Visit Provider Internal Medicine Cardiovascular Disease
DX: Z00.00 Encounter for general adult medical examination without abnormal findings (principal); I50.42 Chronic combined systolic (congestive) and diastolic (congestive) heart failure; R73.01 Impaired fasting glucose
CPT/HCPCS: 36415; 80053; 83036; 83880; 85025

== ENCOUNTER 2024-12-12 07:58 | Outpatient (AMB) | payer BC, SELFPAY ==
--- OUTSIDE RECORDS SUMMARY | 2024-12-12 08:02 | XMS_ITS | Clinical Summary ---
Author Organization [facility] Address [address] [place] [address] Phone Care Team Providers Care Coding Quality Coordinator Name Role Phone Patrick Muniz MD Primary Care Provider [phone] Allergies Active Allergy Reactions Criticality Noted Date [...] Insurance [facility] Care Teams Coding Quality Coordinator Relationship Specialty Start Date End Date Patrick Muniz MD [address] [address] PCP - General Family Medicine 10/21/24
--- OUTSIDE RECORDS SUMMARY | 2024-12-12 08:02 | XMS_ITS | Patient Health Record ---
Author Organization [facility] Address [address] [place] [address] Care Team Providers Care Cord Splicer Name Role Phone Moises Winters Jr [phone] Reason For Referral No Information Plan Of Treatment No Information
[2024-12-12 08:19] LABS: Prothrombin Time Whole Bld POC 27.4 sec (11.1-13.5); ~PT, ~INR - Anti Coag Clinic 2.3 (0.9-1.1)
--- NOTE | 2024-12-12 08:20 | MHC.OFFVISCO ---
Intake Intake Visit Reasons: Anticoagulation Allergies hydralazine (Hydralazine) Allergy (Unknown, Verified 12/12/24 08:13) SEVERE HEADACHE Medication List - Last Reconciled 12/12/24 by Elisa Jon RN blood sugar diagnostic As directed dapagliflozin propanediol (Farxiga) 5 mg PO QAM 90 days empagliflozin (Jardiance) 10 mg PO DAILY furosemide (Lasix) 40 mg PO DAILY glipizide ER 2.5 mg PO DAILY lancets One Touch Ultra Test Strips As directed to test blood sugar twice a day. Ninety day supply lancets (Akorri NetworksTouch UltraSoft 2 Lancet) As directed levothyroxine 125 mcg PO DAILY@0600 90 days metoprolol succinate ER 25 mg PO DAILY 90 days rosuvastatin 20 mg PO BEDTIME spironolactone 25 mg PO DAILY tadalafil 5 mg PO DAILY 90 days tamsulosin 0.4 mg PO BEDTIME 90 days trazodone 25 mg (1/2 x 50 mg) PO BEDTIME PRN 30 days warfarin 4 mg See Protocol PO DAILY@1800 Nursing Note INR: 2.3 in therapeutic range Medications and supplements reviewed- He states he is off aspirin and other meds - he was instructed to bring his med list on his dosing intructions No changes in health, diet, supplements, Denies any signs and symptoms of bleeding or bruising or clotting. Bleeding, bruising, clotting discussed Nutritional guidance given Dose: 2MG X 1 DAY/ 4MG X 6 DAYS F/U INR: 2 WEEKS Patient verbalizes understanding of instructions given Anti-Coag Initial Assessment Social Hx Patient Tobacco Use Status: Former Tobacco user alcohol intake: former Alcohol intake frequency: does not drink Coding Level of Care Code Est Patient Level 1 Diagnoses Current use of anticoagulant therapy Z79.01 Assessment & Plan Assessment & Plan (1) Current use of anticoagulant therapy: Comment: critical high INR Code(s): Z79.01 - moth exterminator (current) use of 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
== END 2024-12-12 08:29 | disposition home or self-care (01) ==
LOC: HO.ACS 07:58
PROVIDERS: PCP Family Medicine; Visit Provider Internal Medicine Medical Oncology
DX: Z79.01 Long term (current) use of anticoagulants (principal)

== ENCOUNTER → 2024-12-12 07:58 | Outpatient (BNVA) | payer BC, SELFPAY | PROVIDERS: PCP Family Medicine; Visit Provider Internal Medicine Medical Oncology | DX: Z79.01 Long term (current) use of anticoagulants (principal) | CPT/HCPCS: 85610; 99211 ==

== ENCOUNTER 2024-12-15 10:32 | Outpatient (AMB) | payer BC, SELFPAY ==
--- NOTE | 2024-12-15 10:41 | MHC.PC.OV ---
Vital Signs 12/15/24 10:48 Height 5 ft 6 in Weight 171 lb 8 oz BMI 27.7 BP 132/65 Blood Pressure Location Lt brachial Position Sitting Respiration 12 Pulse 65 Pulse Source Pulse Oximeter Temp 97.7 F Temp Source Oral Pulse Oximetry (%) 98 Oxygen Delivery Method Room Air Intake Visit Reasons: f/u heart failure, chronic conditions Intake Note: Follow up heart failure condition. Patient is wondering how much can he exercise. Training And Development Director Required: No Allergies hydralazine (Hydralazine) Allergy (Unknown, Verified 12/15/24 10:42) SEVERE HEADACHE Medication List - Last Reconciled 12/15/24 by Patrick Muniz MD blood sugar diagnostic As directed dapagliflozin propanediol (Farxiga) 5 mg PO QAM 90 days furosemide (Lasix) 40 mg PO DAILY glipizide ER 2.5 mg PO DAILY lancets One Touch Ultra Test Strips As directed to test blood sugar twice a day. Ninety day supply lancets ([employer]Touch UltraSoft 2 Lancet) As directed levothyroxine 125 mcg PO DAILY@0600 90 days meclizine 12.5 mg PO BID-QID PRN metoprolol succinate ER 25 mg PO DAILY 90 days rosuvastatin 20 mg PO BEDTIME spironolactone 25 mg PO DAILY tadalafil 5 mg PO DAILY 90 days tamsulosin 0.4 mg PO BEDTIME 90 days trazodone 25 mg (1/2 x 50 mg) PO BEDTIME PRN 30 days warfarin 4 mg See Protocol PO DAILY@1800 Tobacco use date assessed: 12/15/24 Fall risk assessment: No Falls in past year Last assessed Fall Risk: 12/15/24 Dental Screening Dental Screen Date: 12/15/24 Did you have a dental visit in the last 12 months?: No Did you have a dental problem in the last 6 months where you did not have access to dental care?: No Was dental information given to patient?: Patient has dentist HPI f/u heart failure, chronic conditions HPI Details 89 y/o tj presents to f/u heart failure, HTN, chronic conditions. Had seen Cardiology 12/03/24. They plan to do PYP scan to rule out amyloidosis. Had added spironolactone 25mg. Pt notes he feels breathing is fine. [facility] Medical History (Updated 11/12/24 @ 21:49 by Delbert Finley MD) Lower extremity edema Sialadenitis Benign cyst of skin Chest pain RUQ pain Wheezing Elevated diaphragm (~10/13/24) Pulmonary nodules Aortic stenosis Edema CAD (coronary artery disease) Diabetes type 2, controlled Elevated prostate specific antigen between 10 and 19 ng/ml Atrial fibrillation [place]'s disease Elevated morning serum cortisol level Surgical History History of cardiac cath Hx of tonsillectomy Hx of colonoscopy Family History Father Colon cancer Mother HTN (hypertension) Type 2 diabetes mellitus Brother No problems noted. Sister No problems noted. Son No problems noted. Son No problems noted. Son No problems noted. Daughter No problems noted. Daughter No problems noted. Social History Household Members: None Housing: Apartment Alcohol intake: former Year quit: 1979 Comment: pt dipak refusing assistance to BR and alarms Patient Tobacco Use Status: Former Tobacco user Years Smoked: 45+ e-Cigarette/Vaping Use: Never Used Second Hand Smoke Exposure: No Advance Directives Date on File: 10/14/24 service: Yes Current occupational status: retired Current occupational exposures/hazards: No Cognitive needs: No Hearing needs: Yes Vision needs: No Questionnaire Thrive Questionnaire Date Thrive assessed: 07/24/24 I am a: Patient What is your living situation today?: I have a steady place to live Within the past 12 months, did the food you bought not last and you didn't have the money to get more?: I choose not to answer this question Within the past 12 months, did you worry whether your food would run out before you got money to buy more?: I choose not to answer this question Do you have trouble paying for medicines?: I choose not to answer this question Do you have trouble getting transportation to medical appointments?: I choose not to answer this question Do you have trouble paying your heating and electricity bill?: No Do you have trouble taking care of your child, family member or friend?: No Do you have trouble with day-to-day activities such as bathing, preparing meals, shopping, managing finances, etc.?: No Are you currently unemployed and looking for a job?: No Are you interested in more education?: No Please select the resources that you would like help with: None Currently or been in a relationship where the following occur: I choose not to answer THRIVE Score: 0 KOBE-7 AMB Questionnaire KOBE-7 Date KOBE - 7 assessed: 07/17/23 Source: Developed by Drs. Boston Abdi, Ermelinda Hutton, Nagi Berkowitz and colleagues, with an educational noni from [employer]. Physical exam (Primary Care) Vital Signs: Last Vital Signs Temp 102.4 F H 12/15/24 10:48 Pulse 65 12/15/24 10:48 Resp 12 12/15/24 10:48 BP 132/65 12/15/24 10:48 Pulse Ox 98 12/15/24 10:48 Oxygen Delivery Method Room Air 12/15/24 10:48 BMI result Body Mass Index 27.7 Tobacco/Smoking Status: Tobacco use Status Tobacco use date assessed 12/15/24 12/15/24 10:43 Patient Tobacco Use Status Former Tobacco user 12/15/24 10:43 e-Cigarette/Vaping Use Never Used 12/15/24 10:43 Thrive Assessment: Date of Thrive Assessment Date Thrive assessed 07/24/24 12/15/24 10:43 Currently or been in a relationship where the following occur: I choose not to answer Coding Level of Care Code Est Pt Level 4 (87551) Diagnoses Essential hypertension I10 CAD (coronary artery disease) I25.10 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 Blood pressure is fairly well controlled. Goal is less than 130/80 Continue current medications (2) CAD (coronary artery disease): Comment: nonobstructive Code(s): I25.10 - Atherosclerotic heart disease of [place] coronary artery without angina pectoris Category: Medical Plan: Currently stable Follow-up with Cardiology as recommended (3) Heart failure: Code(s): I50.9 - Heart failure, unspecified Category: Medical Qualifiers: Heart failure chronicity: chronic Heart failure type: combined systolic and diastolic Qualified Code(s): I50.42 - Chronic combined systolic (congestive) and diastolic (congestive) heart failure Plan: Patient had not been taking his diuretic at my last visit with him and again with Cardiology. He has been taking it more consistently Breathing easily and lungs are clear Continue furosemide as prescribed. Continue spironolactone. (4) Diabetes type 2, controlled: Code(s): E11.9 - Type 2 diabetes mellitus without complications Category: Medical Plan: A1c slightly elevated. Goal is less than 7.0% Will increase glipizide
[2024-12-15 10:48] VITALS: BP 132/65; PULSE 65; RESP 12; TEMP 36.5; O2SAT 98; BMI 27.7
--- OUTSIDE RECORDS SUMMARY | 2024-12-15 11:13 | XMS_ITS | Clinical Summary ---
Author Organization [facility] Address [address] [place] [address] Phone Care Team Providers Care Bilingual Sales Consultant Name Role Phone Patrick Muniz MD Primary Care Provider [phone] Allergies Active Allergy Reactions Criticality Noted Date [...] this topic Insurance [facility] Care Teams Bilingual Sales Consultant Relationship Specialty Start Date End Date Patrick Muniz MD [address] [address] PCP - General Family Medicine 10/21/24
--- OUTSIDE RECORDS SUMMARY | 2024-12-15 11:13 | XMS_ITS | Patient Health Record ---
Author Organization [facility] Address [address] [place] [address] Care Team Providers Care Field Assistant Name Role Phone Moises Winters Jr Reason For Referral No Information Plan Of Treatment No Information
== END 2024-12-15 11:44 | disposition home or self-care (01) ==
LOC: HO.HMCFM 10:33
PROVIDERS: PCP Family Medicine; Visit Provider Family Medicine
DX: I10 Essential (primary) hypertension (principal); I25.10 Atherosclerotic heart disease of native coronary artery without angina pectoris; I50.42 Chronic combined systolic (congestive) and diastolic (congestive) heart failure; E11.9 Type 2 diabetes mellitus without complications

== ENCOUNTER 2024-12-26 08:10 | Outpatient (AMB) | payer BC, SELFPAY ==
--- OUTSIDE RECORDS SUMMARY | 2024-12-26 08:16 | XMS_ITS | Clinical Summary ---
Author Organization [facility] Address [address] [place] [address] Phone Care Team Providers Care Barn Hand Name Role Phone Patrick Muniz MD Primary Care Provider [phone] Allergies Active Allergy Reactions Criticality Noted Date [...] patient's age to complete this topic Insurance [facility] Care Teams Barn Hand Relationship Specialty Start Date End Date Patrick Muniz MD [address] [address] PCP - General Family Medicine 10/21/24
--- OUTSIDE RECORDS SUMMARY | 2024-12-26 08:16 | XMS_ITS | Patient Health Record ---
Author Organization [facility] Address [address] [place] [address] Care Team Providers Care Battery Container Finishing Hand Name Role Phone Moises Winters Jr [phone] Reason For Referral No Information Plan Of Treatment No Information
[2024-12-26 08:21] LABS: Prothrombin Time Whole Bld POC 38.2 sec (11.1-13.5); ~PT, ~INR - Anti Coag Clinic 3.2 (0.9-1.1)
--- NOTE | 2024-12-26 08:30 | MHC.OFFVISCO ---
Intake Intake Visit Reasons: Anticoagulation Allergies hydralazine (Hydralazine) Allergy (Unknown, Verified 12/26/24 08:11) SEVERE HEADACHE Medication List - Last Reconciled 12/26/24 by Elisa Jon RN blood sugar diagnostic (OneTouch Ultra Test strips) USE 1 STRIP DIRECTED TO CHECK BLOOD GLUCOSE TWICE DAILY FOR DIABETES furosemide (Lasix) 40 mg PO DAILY glipizide ER 2.5 mg PO DAILY lancets One Touch Ultra Test Strips As directed to test blood sugar twice a day. Ninety day supply lancets (OneTouch UltraSoft 2 Lancet) As directed levothyroxine 125 mcg PO DAILY@0600 90 days meclizine 12.5 mg PO BID-QID PRN metoprolol succinate ER 25 mg PO DAILY 90 days rosuvastatin 20 mg PO BEDTIME spironolactone 25 mg PO DAILY tadalafil 5 mg PO DAILY 90 days tamsulosin 0.4 mg PO BEDTIME 90 days trazodone 25 mg (1/2 x 50 mg) PO BEDTIME PRN 30 days warfarin 4 mg See Protocol PO DAILY@1800 Nursing Note INR 3.2 out of therapeutic range- has been eating tomatoes Medications and supplements reviewed Patient status: Well for him today, pleasant and talkative no complaints, to have upcoming nuclear stress test, and a body scan of some kind he [facility] Medications or supplements: resume glipizide Diet: good Denies any signs and symptoms of bleeding or clotting or unusual bruising Bleeding, bruising, clotting discussed Nutritional guidance given: increase greens while eating more tomatoes, pt stated he is picking up his spinache today Dose: 2mg x 1 day/ 4mg x 6 days F/U INR Date: 2 1/2 weeks ?? Patient verbalizing understanding of instructions given. Anti-Coag Initial Assessment Social Hx Patient Tobacco Use Status: Former Tobacco user alcohol intake: former Alcohol intake frequency: does not drink Coding Level of Care Code Est Patient Level 1 Diagnoses Current use of anticoagulant therapy Z79.01 Results AMB INR Fingerstick AMB INR Fingerstick 3.2 Last Edit by Elisa Jon RN on 12/26/24 08:22 MANUAL ENTRY Assessment & Plan Assessment & Plan (1) Current use of anticoagulant therapy: Comment: critical high INR Code(s): Z79.01 - FDC (current) use of 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
== END 2024-12-26 08:33 | disposition home or self-care (01) ==
LOC: HO.ACS 08:10
PROVIDERS: PCP Family Medicine; Visit Provider Internal Medicine Medical Oncology
DX: Z79.01 Long term (current) use of anticoagulants (principal)

== ENCOUNTER → 2024-12-26 08:10 | Outpatient (BNVA) | payer BC, SELFPAY | PROVIDERS: PCP Family Medicine; Visit Provider Internal Medicine Medical Oncology | DX: I48.0 Paroxysmal atrial fibrillation (principal); Z79.01 Long term (current) use of anticoagulants; Z51.81 Encounter for therapeutic drug level monitoring | CPT/HCPCS: 85610; 99211 ==

== ENCOUNTER → 2024-12-31 09:30 | Outpatient (REF) | payer MEDICARE, SELFPAY ==
--- OUTSIDE RECORDS SUMMARY | 2024-12-30 04:30 | XMS_ITS | Encounter Summary ---
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 Date/Time Encounter Type Encounter Description Reason Provider Source Dec 30, 2024 08:30 AM COMPRE OPH EXAM EST PT 1/> OPTOMETRY ICD-10-CM E11.9 Type 2 diabetes mellitus without complications YOLI SOSA Encounter Template Text not used by [facility] Assessments - Encounter Diagnoses This section includes the primary and secondary diagnoses documented for the Encounter. Date/Time Primary/Secondary Diagnosis Diagnosis Name Provider Source Dec 30, 2024 08:33 AM PRIMARY Type 2 diabetes mellitus without complications SOSA,YOLI Bailey [facility] Dec 30, 2024 08:33 AM SECONDARY Dry eye syndrome of bilateral lacrimal glands SOSA,YOLI Bailey [facility] Dec 30, 2024 08:33 AM SECONDARY Presbyopia SOSA,YOLI Bailey [facility] Dec 30, 2024 08:33 AM SECONDARY Presence of intraocular lens SOSA,YOLI Bailey [facility] Dec 30, 2024 08:33 AM SECONDARY Puckering of macula, left eye SOSA,YOLI Bailey [facility] Dec 30, 2024 08:33 AM SECONDARY Unspecified retinal detachment with retinal break, left eye SOSA,YOLI Bailey [facility] Plan of Treatment: Future Appointments (+ 6 months) and Future Tests (+/- 45 days) The Plan of Treatment section includes future care activities for the patient from all [place] [facility]. This section includes future appointments and future orders which are active, pending or scheduled. Future Appointments This section includes appointments that were scheduled to occur 6 months from the date of the Encounter, up to a maximum of 20 appointments. The data comes from all [place] treatment facilities. Appointment Date/Time Appointment Type Appointme nt Facility Name Jan 22, 2025 01:30 PM AMBULATORY - MEDICINE [facility] Feb 05, 2025 10:00 AM AMBULATORY - MEDICINE [facility] Social History: Smoking Status (Most current) and Tobacco Use (All prior to encounter date) This section includes the most current, and the historical, smoking and tobacco- related health factors from the [place] facility where the Encounter took place. Current Smoking Status This section includes the most current smoking, or tobacco-related health factor, from the [place] facility where the Encounter took place. Date/Time Current Smoking Status Comment Facil ity Apr 17, 2024 10:00 AM VA-TOBACCO USE FOR JACINTO CIGARETTES [facility] Tobacco Use History This section includes a history of the smoking, or tobacco-related health factors, that were collected on or before the date of the Encounter. The data comes from the [place] facility where the Encounter took place. Date/Time Smoking Status/Tobac co Use Comment Facility Apr 17, 2024 10:00 AM VA-TOBACCO USE FORMER CIGARETTES [facility] [place] [facility] May 03, 2023 09:30 AM VA-TOBACCO FORMER USER [facility] [place] [facility] May 03, 2023 09:30 AM VA-TOBACCO QUIT 15 YRS OR MORE [facility] [place] [facility] Oct 26, 2021 10:00 AM VA-TOBACCO FORMER USER [facility] [place] [facility] Oct 26, 2021 10:00 AM VA-TOBACCO QUIT 15 YRS OR MORE [facility] [place] [facility] Aug 19, 2020 08:30 AM VA-TOBACCO FORMER USER [facility] [place] [facility] Aug 19, 2020 08:30 AM VA-TOBACCO QUIT 15 YRS OR MORE [place] [facility] [place] [facility] May 21, 2018 09:36 AM VA-TOBACCO FORMER USER [facility] [place] [facility] May 21, 2018 09:36 AM VA-TOBACCO QUIT 15 YRS OR MORE [place] [facility] [place] [facility] May 21, 2018 08:51 AM VA-TOBACCO NEVER USED [place] [facility] [place] [facility] May 09, 2017 09:38 AM QUIT TOBACCO USE > 7 YEARS AGO quit 35 yrs ago [facility] [place] [facility] May 09, 2016 09:45 AM LIFETIME NON-TOBACCO USER [facility] [place] [facility] May 06, 2015 08:02 AM QUIT TOBACCO USE > 7 YEARS AGO pt states he stopped smoking 20 yrs ago [facility] [place] [facility] Apr 05, 2009 02:04 PM QUIT TOBACCO USE > 7 YEARS AGO QUIT 15 YEARS AGO [place] [facility] [place] [facility] Encounter Notes: All associated encounter notes This section contains the clinical notes associated to the Encounter. Date/Time Encounter Note(s) Provider Source Dec 30, 2024 08:27 AM OPTOMETRY NOTE: LOCAL TITLE: OPTOMETRY NOTE STANDARD TITLE: OPTOMETRY NOTE DATE OF NOTE: DEC 30, 2024@08:27 ENTRY DATE: DEC 30, 2024@08:27:47 AUTHOR: YLOI SOSA EXP COSIGNER: URGENCY: STATUS: COMPLETED OPTOMETRY NOTE Has ADDENDA Please assist in ordering the following Duplicate(s): OD +2.50 -2.75 X90 Add:0.00 Pzm:0.00 Dir: Prz2:0.00 Dir2: OS +3.00 -1.50 X90 Add:0.00 Pzm:0.00 Dir: Prz2:0.00 Dir2: FITTING INFORMATION FPD:61.5 NPD: [place]:R: L: SEG HT:R: L: Tint:SALAS Shade:3 [facility] Billable Items FRAME: US60 FERRARO 52-18-140 Right Lens: POLY SINGLE VISION 1.586 POLY Left Lens: POLY SINGLE VISION 1.586 POLY SOLID TINT OD +2.50 -2.75 X90 Add:0.00 Pzm:0.00 Dir: Prz2:0.00 Dir2: OS +3.00 -1.50 X90 Add:0.00 Pzm:0.00 Dir: Prz2:0.00 Dir2: FITTING INFORMATION FPD:61.5 NPD: [place]:R: L: SEG HT:R: L: Tint:None Shade:None VA Billable Items FRAME: US60 FERRARO 52-18-140 Right Lens: POLY SINGLE VISION 1.586 POLY Left Lens: POLY SINGLE VISION 1.586 POLY KLEAR ANTI-REFLECTIVE COATING OD +5.25 -2.75 X90 Add:0.00 Pzm:0.00 Dir: Prz2:0.00 Dir2: OS +5.75 -1.50 X90 Add:0.00 Pzm:0.00 Dir: Prz2:0.00 Dir2: FITTING INFORMATION FPD:58.5 NPD:58.5 [place]:R: L: SEG HT:R: L: Tint:None Shade:None VA Billable Items FRAME: S324 BLACK CRYSTAL 30-16-433 Right Lens: POLY SINGLE VISION 1.586 POLY Left Lens: POLY SINGLE VISION 1.586 POLY /kaylynn/ 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 OPT HT entered consults for order on behalf of provider. /kaylynn/ FRANCOIS THORNTON [facility] [employer], Optometry Signed: 12/30/2024 09:15 YOLI SOSA [place] [facility] [place] [facility] Dec 30, 2024 07:47 AM OPTOMETRY NOTE: LOCAL TITLE: OPTOMETRY NOTE STANDARD TITLE: OPTOMETRY NOTE DATE OF NOTE: DEC 30, 2024@07:47 ENTRY DATE: DEC 30, 2024@07:47:17 AUTHOR: YOLI SOSA EXP COSIGNER: URGENCY: STATUS: COMPLETED Eye Examination for: MILLIE MERCEDES KIMBERLI, 89 year old WHITE MALE WILBER: 8.20.24 Reason for Visit/CC: Patient here for CEE. reports left eye is worse than right eye, longstanding and stable. Reports he cannot be dilated today as he is driving. Current Ocular Meds: Refresh QHS OU - discussed increasing to QID OU OHx/HPI: 1. T2DM s retinopathy 2. ERM OS 3. H/o retinal break s/p laser 360 OS 4. Pseudophakia OU 5. ROSMERY OU 6. RE,P (-) Pain: (-) KINSEY: (-) Diplopia: (-) Flashes: (+) Floaters: longstanding and stable (-) Amaurosis Fugax/Tia's: (-) Eye Injury: (+) Eye Surgery: CE/PCIOL OU, PPV OS 2010, retinal break s/p repair OS (-) TBI FOHx: (-) Glaucoma (-) ARMD (-) Blindness MHx: Code Description Z87.2 History of actinic keratosis ([facility] 5875035317219) R20.0 Numbness of hand ([facility] [id number]) M54.50 Low Back Pain ([facility] [id number]) E11.9 Diabetes Mellitus Type 2 ([facility] [id number]) E11.29 Microalbuminuria due to type 2 diabetes mellitus ([facility] [id number]) 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 Abnormal vision ([facility] [id number]) N40.0 Benign Prostatic Hypertrophy Without Outflow Obstruction ([facility] [id number]) I10. Essential hypertension ([facility] [id number]) E03.9 Hypothyroidism ([facility] 31406682) 435.9 Transient Ischemic Attack (ICD-9-CM 435.9) E78.5 HLD - Hyperlipidemia ([facility] 67012092) H90.5 Hearing loss ([facility] [id number]) SYSTEMIC MEDICATIONS/OCULAR MEDICATIONS: Active Outpatient Medications (including Supplies): Active Non-VA [...] TAB 40MG BY MOUTH AT BEDTIME ACTIVE ALLERGIES: Patient has answered NKA VITALS (most recent, as listed in the electronic record): B/P: 131/70 (04/17/2024 10:06) Pulse: 63 (04/17/2024 10:06) Temperature: 98 F [36.7 C] (08/09/2022 09:28) Weight: 176 lb [79.83 kg] (04/17/2024 10:06) Height: 66 in [167.6 cm] (10/26/2021 09:53) BMI: BMI: 28.5 PERTINENT LABS: HEMOGLOBIN A1C TREND Collection DT Spec HGBA1c 08/09/2022 10:56 BLOOD 5.7 H 02/06/2022 09:51 BLOOD 6.7 H 08/24/2021 11:21 BLOOD 7.4 H 08/23/2020 13:37 BLOOD 7.8 H 10/10/2010 07:14 BLOOD 6.5 H (-) Smoker: quit 1970s Current Rx with last BCVA: OD: +2.25-2.80e432 20/20 OS: +3.00-1.91z232 20/50+1 Add: +2.75 DVA ( )sc ( x )cc - [x]phoropter []specs []CL OD: 20/20-2 OS: 20/25+1 Entrance Testing: Pupil: PERRL (-)APD EOM: SAFE OU, (-)Pain/Diplopia CVF: FTFC OU Subjective Refraction: OD: +2.50-2.11p295 20/20- OS: +3.00-1.79o372 20/25+1 Add: +2.75 SLE: Lids/Lashes: dermatochalasis OU, MGD BUL & BLL Conjunctiva: white and quiet bulbar conj OU quiet palpebral conj OU Corneas: clear OU Iris: flat and clear OU, (-)NVI OU AC: D & Q OU Angles: 4x4 OU TAP @ 8:25am OD 19 mmHg OS 19 mmHg [x]Nicole [][facility] []GAT Last IOP: OD: 20 OS: 19 Undilated Fundus Exam: declined dilation 2/2 driving Vit: syneresis OU, PVD OD Lens: PCIOL OU c periph PCO OS C/D (Size and Rim Description) OD 0.10 pink and healthy OS 0.10 pink and healthy (-)NVD OU PPole OD clear OS clear (-)DBH/CWS/JAQUAN/VB OU Macula OD flat and clear OS ERM (-)CSME OU A/V: attenuated OU Assessment/Plan: 1. Type II Diabetes without evidence of retinopathy or macular edema OU -Pt ed re today's findings and the possible ocular health and visual complications associated with diabetes as well as importance of attending follow up appointments -Encouraged blood sugar, blood pressure and lipid control as directed by provider managing diabetes. -Pt ed to report any vision changes JOHNNY. - repeated back the plan and education. -Monitor 2. Epiretinal membrane OS - stable -Pt ed re today's findings - repeated back the plan and education. -Monitor 3. History of retinal detachment s/p laser 360 OS - not fully viewed undilated -Pt ed re today's findings -[place] repeated back the plan and education. -Monitor 4. Pseudophakia OU -Pt ed re today's findings and the importance of UV protection -[place] repeated back the plan and education. -Monitor 5. Dry Eye Syndrome OU - symptomatic -Pt ed re today's findings -Recommend Artificial Tears QID OU -[place] repeated back the plan and education. -Monitor 6. Refractive Error and Presbyopia OU -Rx updated and ordered per pt request SVx3 -Monitor RTC 1 year or earlier PRN Glasses adjusted/repaired in office: () Yes (x) No If yes, how many pairs: Education: Diabetes: Patient was educated regarding diabetes and related ocular complications including retinopathy and cataract formation as well as other related systemic complications. The importance of good blood sugar control, blood sugar testing as recommended by their PCP and the importance of timely follow up were all emphasized. Medication Reconciliation: Outpatient: Has the patient been taking medications as documented in the EMLR? YES: The patient has been taking medications as documented in the EMLR. Essential Medication List for Review used to complete this medication reconciliation. INCLUDED IN THIS LIST: Alphabetical list of active outpatient prescriptions dispensed from this [place] (local) and dispensed from another [place] or [facility] facility (remote) as well as inpatient [...] Remote Allergy/ADR Data available for this patient [facility] [place] [facility] No Known Allergies Med. Reconciliation (Tool #1) INCLUDED IN THIS LIST: Alphabetical list of active outpatient prescriptions dispensed from this [place] ([place]) and dispensed from another [place] or [facility] facility (remote) as well as inpatient orders (local pending and active), local clinic medications, locally documented non-VA medications, and local prescriptions that have or been discontinued in the past 90 days. Non-VA Meds Last Documented On: Apr 17, 2024 NOTE The display of VA prescriptions dispensed from another [place] or [facility] facility (remote) is limited to active outpatient prescription entries matched to National Drug File at the originating site and may not include some items such as investigational drugs, compounds, etc. NOT INCLUDED IN THIS LIST: Medications self-entered by the patient into personal health records (i.e. [employer]) are NOT included in this list. Non-VA medications documented outside this [place], remote inpatient orders (regardless of status) and remote clinic medications are NOT included in this list. The patient and provider must always discuss medications the patient is taking, regardless of where the medication was dispensed or obtained. -------- Non-VA AMLODIPINE BESYLATE 2.5MG TAB TAKE ONE TABLET BY MOUTH ONCE DAILY Medication prescribed by Non-VA provider. Non-VA BUMETANIDE 1MG TAB TAKE ONE TABLET BY MOUTH ONCE DAILY Medication prescribed by Non-VA provider. Indication: TO REMOVE FLUID/CONTROL BLOOD PRESSURE OUTPT CARBOXYMETHYLCELLULOSE NA 0.5% OPH SOLN (Status = ) INSTILL 1 DROP INTO EACH EYE FOUR TIMES A DAY FOR DRY EYE Rx# [id number] Last Released: 01/01/24 Qty/Days Supply: Rx Expiration Date: 12/25/24 Refills Remainin Indication: FOR DRY EYE Non-VA GLIPIZIDE 5MG TAB TAKE ONE-HALF TABLET BY MOUTH Medication prescribed by Non-VA provider. Non-VA LEVOTHYROXINE NA 125MCG TAB TAKE ONE TABLET BY MOUTH daily Medication prescribed by Non-VA provider. Non-VA LISINOPRIL 10MG TAB TAKE ONE TABLET BY MOUTH ONCE DAILY Medication prescribed by Non-VA provider. Non-VA PRAVASTATIN NA 40MG TAB TAKE ONE TABLET BY MOUTH AT BEDTIME Medication prescribed by Non-VA provider. -------- SUPPLIES -------- PHARMACY TERMS AND POSSIBLE PATIENT ACTIONS INPT = [place] inpatient order IV = [place] intravenous medication OUTPT = [place] outpatient prescription PHARMACY POSSIBLE PATIENT TERMS EXPLANATION ACTIONS -------- ACTIVE A prescription that can be If you have refills, filled at the local [place] pharmacy. you may request a refill of this prescription from your [place] pharmacy. CLINIC A medication you received during If you have questions a visit to a [place] clinic or about this medication emergency department. contact your [place] healthcare team. DISCONTINUED A prescription your provider has Contact your [place] stopped. It is no longer healthcare team if you available to be sent to you or need more of this picked up at the [place] pharmacy medication. window. A prescription which is [...] the [facility]. Or, it may be an oruk-lqd-lemljqw (OTC), herbal, dietary supplements or sample medication. [...] before this medication now. you run out. 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
--- NOTE | ~2024-12-31 | NM_ITS ---
EXAMINATION: TC-PYP CARDIAC STUDY CLINICAL INFORMATION: Evaluation for cardiac amyloidosis. 89 years old Male with heart failure COMPARISON None available. TECHNIQUE: 25 mCi of Tc-99m pyrophosphate was injected intravenously. Planar images of the chest were obtained in the anterior and left lateral views at 3 hours. SPECT-CT images of the chest were also obtained. FINDINGS: 1. Image Quality: 2. Semi-quantitative visual scoring of the cardiac uptake is performed as follows: 3 = high cardiac uptake > bone uptake 3. H-CL Ratio if Applicable: 1.633 4. Ancillary Finds: Calcifications noted in the arch of the aorta, ascending aorta as well as descending thoracic aorta as well as calcification noted in the coronary arteries NM/NM PYP Card Amyld SPECT w CT IMPRESSION: 1. 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 Please note that the Tc-99m PYP is more sensitive in detecting transthyretin-related cardiac amyloidosis than that of light-chain cardiac amyloidosis. Electronically signed by: Clifton Mota MD 01/01/2025 03:53 PM EDT
--- OUTSIDE RECORDS SUMMARY | 2024-12-31 05:11 | XMS_ITS | Continuity of Care Document ---
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 Name Role Phone [facility] Unavailable Unavailable Problems Combined list of problems [...] Benign Prostatic Hypertrophy Without Outflow Obstruction (SCT 593347271) Active 05/07/19 19 Condition May 21, 2018 Entered By: MC DAN Comment: treated with finasteride [facility] Essential hypertension Active 05/07/19 09 Condition [facility] Hearing loss (SNOMED CT 66550920) Active 05/07/19 09 Condition [facility] HLD - Hyperlipidemia Active 05/07/19 09 Condition [facility] Hypothyroidism (SNOMED CT 14949808) Active 05/07/19 09 Condition [facility] Diabetes Mellitus Type 2 (SCT 55303699) Active Condition Apr 17, 2024 Entered By: SKYLAR GREGORY Comment: vet under care of community PCP/ Dr Sheldon Muniz- good glycemic control [facility] History of actinic keratosis Active Condition Feb 08, 2024 Entered By: SKYLAR GREGORY Comment: see tele derm-lesions on right side of face/ vet needs cryotx per derm [facility] Low Back Pain (SCT 029301954) Active Condition Oct 26, 2021 Entered By: [...] TABLET BY MOUTH ONCE DAILY ORAL ACTIVE KERI AMAYA 2023 [facility] BUMETANIDE 1MG TAB TAKE ONE TABLET BY MOUTH ONCE DAILY ORAL ACTIVE Juan A'KERI GIL 2023 [facility] CARBOXYMETH YLCELLULOSE NA 0.5% SOLN,OPH INSTILL 1 DROP INTO EACH EYE FOUR TIMES A DAY FOR DRY EYE OPHTHA LMIC ACTIVE 12/31/2025 [id number] 5 SOSA,LAC EY J 2024 45 [facility] CARBOXYMETH YLCELLULOSE NA 0.5% SOLN,OPH INSTILL 1 DROP INTO EACH EYE FOUR TIMES A DAY FOR DRY EYE OPHTHA LMIC DISCONT INUED 12/25/2024 [id number] 4 SOSA,LAC EY J 2023 45 [facility] GLIPIZIDE 5MG TAB TAKE ONE-HALF TABLET BY MOUTH ORAL ACTIVE Juan AKERI POWERS 2023 [facility] LEVOTHYROXI NE NA 125MCG TAB (SYNTHROID) TAKE ONE TABLET BY MOUTH QD ORAL ACTIVE KERI AMAYA 2023 [facility] LISINOPRIL 10MG TAB TAKE ONE TABLET BY MOUTH ONCE DAILY ORAL ACTIVE PEDRO MIRANDAKERI HERMELINDO Galindo 2023 [facility] PRAVASTATIN NA 40MG TAB TAKE ONE TABLET BY MOUTH AT BEDTIME ORAL ACTIVE PRASHANT DAN 2009 [facility] Immunizations Combined list of available immunizations from the Department of Defense and Veterans Affairs facilities. Immunization Series Date Given Administered By Site Reaction Lot Number CVX Code Drug Forging Operator Status Comments Source INFLUENZA, UNSPECIFIED FORMULATION 2023 88 complet ed HISTORICA L INFORMATI ON - SOURCE UNSPECIFI ED, [facility] INFLUENZA, UNSPECIFIED FORMULATION 2021 88 complet ed [facility] COVID-19 (MODERNA), MRNA, LNP-S, PF, 100 MCG OR 50 MCG DOSE 3 2020 207 complet ed MOD; [id number]; 2 [facility] COVID-19 (MODERNA), MRNA, LNP-S, PF, 100 MCG/0.5 ML DOSE 2 2020 207 complet ed MOD; [id number]; 1 [facility] COVID-19 (MODERNA), MRNA, LNP-S, PF, 100 MCG/0.5 ML DOSE 1 2020 207 complet ed MOD; [id number]; 1 [facility] [...] ed received in community flu clinic at [facility] FLU,3 [...] [facility] En[facility] [id number] 09/24 [facility] En[facility] [id number] 09/24 [facility] Out[facility] Encounter 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 10/24 [facility] DETERMINE REFRACTIVE STATE [id number] Diagnos is: ICD-10- CM E11.9 Type 2 diabete s mellitu s without complic ations SOSA,LACE Y J 12/24 [facility] CPTR OPHTH DX IMG POST SEGMT [id number] Diagnos is: ICD-10- CM H35.372 Puckeri ng of macula, left eye SOSA,LACE Y J 12/24 [facility] Outpatient Encounter [id number] 01/08 [facility] OFF/OP EST SEPTEMBER X REQ PHY/QHP [id number] Diagnos is: ICD-10- CM R21 Rash and other nonspec ific skin eruptio n CARONTOOTIE H 01/21 [facility] UNLISTED SPEC DERM SVC/PX [id number] 1. Diagnos is: ICD-10- CM Z13.89 Encount er for screeni ng for other disorde r DARCIE HAIR ICA A 02/06 [facility] TRIM NAIL(S) [id number] 1. Diagnos is: ICD-10- CM E11.9 Type 2 diabete s mellitu s without complic ations VICENTE MANZANO GAMALIEL 02/06 [facility] Outpatient Encounter [id number] Diagnos is: ICD-10- CM L57.0 Actinic keratos is MARY ARIAS PH J 02/07 [facility] Out[facility] Encounter [id number] 1.02/07 [facility] Out[facility] Encounter [id number] 02/10 [facility] OFFICE O/P EST MOD 30 MIN [id number] Diagnos is: ICD-10- CM E11.9 Type 2 diabete s mellitu s without complic ations SKYLAR LEMUS 04/17 [facility] TRIM NAIL(S) [id number] Diagnos is: ICD-10- CM E11.9 Type 2 diabete s mellitu s without complic ations VICENTE MANZANO GAMALIEL 06/09 [facility] OFFICE O/P NEW MOD 45 MIN [id number] Diagnos is: ICD-10- CM L57.0 Actinic keratos is TERESA ALBRIGHT 08/07 [facility] HEARING AID REPAIR/MOD IFYING [id number] Diagnos is: ICD-10- CM Z46.1 Encount er for fitting and adjustm ent of hearing aid RAYSHAWN SANDHU 08/07 [facility] TRIM NAIL(S) [id number] Diagnos is: ICD-10- CM E11.9 Type 2 diabete s mellitu s without complic ations VICENTE MANZANO 10/08 [facility] Out[facility] Encounter [id number] 10/28 [facility] Out[facility] Encounter [id number] 10/28 [facility] [place] [id number] Diagnos is: ICD-10- CM E11.9 Type 2 diabete s mellitu s without complic ations SOSAJACK 12/30 [facility] Outpatient Encounter [id number] 12/31 [facility] Social History Combined list of available smoking, tobacco, and other social history from Department of Defense and Veterans Affairs facilities. Social History Type Response Date Comment Source Tobacco smoking status [facility] VA-TOBACCO USE FORMER CIGARETTES 04/17/2024 [facility] [...] of tobacco use VA-TOBACCO NEVER USED 05/21/2018 [facility] History of tobacco use QUIT TOBACCO USE > 7 YEARS AGO 05/09/2017 quit 35 yrs ago [facility] History of tobacco use LIFETIME NON-TOBACCO USER 05/09/2016 [facility] History of tobacco use QUIT TOBACCO USE > 7 YEARS AGO 05/06/2015 pt states he stopped smoking 20 yrs ago [facility] History of tobacco use QUIT TOBACCO USE > 7 YEARS AGO 04/05/2009 QUIT 15 YEARS AGO [facility] Plan of Care List of future care activities from Department of [facility] facilities. Additional future care activities may be listed in the Assessment and Plan section. Date/Time Care Activity Care Activity Detail Facili ty 01/22/2025 AMBULATORY - MEDICINE AMBULATORY - MEDICI [facility]
--- OUTSIDE RECORDS SUMMARY | 2024-12-31 10:06 | XMS_ITS | Patient Health Record ---
Author Organization [facility] Address [address] [place] [address] Care Team Providers Care Manager Banquet Name Role Phone Moises Winters Jr Reason For Referral No Information Plan Of Treatment No Information
--- OUTSIDE RECORDS SUMMARY | 2024-12-31 10:06 | XMS_ITS | Clinical Summary ---
Author Organization [facility] Address [address] [place] [address] Phone Care Team Providers Care Courier Driver Name Role Phone Patrick Muniz MD Primary Care Provider [phone] [phone] Allergies Active Allergy Reactions Criticality Noted Date [...] this topic Insurance [facility] Care Teams Courier Driver Relationship Specialty Start Date End Date Patrick Muniz MD [address] [address] PCP - General Family Medicine 10/21/24
== END ==
LOC: HO.NUCMED 09:30
PROVIDERS: PCP Family Medicine; Visit Provider Internal Medicine Cardiovascular Disease
DX: I50.9 Heart failure, unspecified (principal)
CPT/HCPCS: 78830; A9538

== ENCOUNTER → 2024-12-31 09:31 | Outpatient (BNV) | payer MEDICARE, SELFPAY | PROVIDERS: PCP Family Medicine; Visit Provider Internal Medicine Cardiovascular Disease | DX: E85.4 Organ-limited amyloidosis (principal); I43 Cardiomyopathy in diseases classified elsewhere | CPT/HCPCS: 78830 ==

== ENCOUNTER 2025-01-12 07:56 | Outpatient (AMB) | payer MEDICARE, SELFPAY ==
--- OUTSIDE RECORDS SUMMARY | 2025-01-12 07:59 | XMS_ITS | Clinical Summary ---
Author Organization [facility] Address [address] [place] [address] Phone Care Team Providers Care Fagoting Machine Operator Name Role Phone Patrick Muniz MD Primary Care Provider [phone] Allergies Active Allergy Reactions Criticality Noted Date [...] patient's age to complete this topic Insurance [facility] Care Teams Fagoting Machine Operator Relationship Specialty Start Date End Date Patrick Muniz MD [address] [address] PCP - General Family Medicine 10/21/24
--- OUTSIDE RECORDS SUMMARY | 2025-01-12 07:59 | XMS_ITS | Patient Health Record ---
Author Organization [facility] Address [address] [place] [address] Care Team Providers Care Water Sponger Name Role Phone Moises Winters Jr Reason For Referral No Information Plan Of Treatment No Information
--- NOTE | 2025-01-12 08:11 | MHC.OFFVISCO ---
Intake Intake Visit Reasons: Anticoagulation Allergies hydralazine (Hydralazine) Allergy (Unknown, Verified 01/12/25 07:57) SEVERE HEADACHE Medication List - Last Reconciled 01/12/25 by Elisa Jon RN blood sugar diagnostic (OneTouch Ultra Test strips) USE 1 STRIP DIRECTED TO CHECK BLOOD GLUCOSE TWICE DAILY FOR DIABETES furosemide (Lasix) 40 mg PO DAILY glipizide ER 2.5 mg PO DAILY lancets One Touch Ultra Test Strips As directed to test blood sugar twice a day. Ninety day supply lancets (OneTouch UltraSoft 2 Lancet) As directed levothyroxine 125 mcg PO DAILY@0600 90 days meclizine 12.5 mg PO BID-QID PRN metoprolol succinate ER 25 mg PO DAILY 90 days spironolactone 25 mg PO DAILY tadalafil 5 mg PO DAILY 90 days tafamidis 61 mg PO DAILY tamsulosin 0.4 mg PO BEDTIME 90 days trazodone 25 mg (1/2 x 50 mg) PO BEDTIME PRN 30 days warfarin 4 mg See Protocol PO DAILY@1800 Nursing Note INR: 3.4 OUT therapeutic range- trending up Had Nuclear stress test - started new med for cardiomyopathy tafamadis- no warfarin interaction noted Medications and supplements reviewed Denies any signs and symptoms of bleeding or bruising or clotting. Bleeding, bruising, clotting discussed Nutritional guidance given- sybil today Dose: decrease dose 2mg x 2 days/ 4mg x 5 days F/U INR: 2 weeks due to labile INR and cardiac concerns Patient verbalizes understanding of instructions given Anti-Coag Initial Assessment Social Hx Patient Tobacco Use Status: Former Tobacco user alcohol intake: former Alcohol intake frequency: does not drink Coding Level of Care Code Est Patient Level 1 Diagnoses Current use of anticoagulant therapy Z79.01 Results AMB INR Fingerstick AMB INR Fingerstick 3.4 Last Edit by Elisa Jon RN on 01/12/25 08:05 MANUAL ENTRY Assessment & Plan Assessment & Plan (1) Current use of anticoagulant therapy: Comment: critical high INR Code(s): Z79.01 - 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
[2025-01-12 08:28] LABS: Prothrombin Time Whole Bld POC 40.4 sec (11.1-13.5); ~PT, ~INR - Anti Coag Clinic 3.4 (0.9-1.1)
== END 2025-01-12 08:17 | disposition home or self-care (01) ==
LOC: HO.ACS 07:56
PROVIDERS: PCP Family Medicine; Visit Provider Internal Medicine Medical Oncology
DX: Z79.01 Long term (current) use of anticoagulants (principal)

== ENCOUNTER → 2025-01-12 07:56 | Outpatient (BNVA) | payer MEDICARE, SELFPAY | PROVIDERS: PCP Family Medicine; Visit Provider Internal Medicine Medical Oncology | DX: I48.0 Paroxysmal atrial fibrillation (principal); Z79.01 Long term (current) use of anticoagulants; Z51.81 Encounter for therapeutic drug level monitoring | CPT/HCPCS: 85610; 99211 ==

== ENCOUNTER 2025-01-21 10:25 | Outpatient (REF) | payer MEDICARE, SELFPAY ==
[2025-01-21 11:24] LABS: Appearance Urine Clear; Glucose Urine UA Negative (Negative); PH 5.5 (5.0-9.0); Specific Gravity - Urine 1.010 (1.005-1.025); UMIC TRIGGER UA YES
--- OUTSIDE RECORDS SUMMARY | 2025-01-21 13:01 | XMS_ITS | Clinical Summary ---
Author Organization [facility] Address [address] [place] [address] Phone Care Team Providers Care Raw Stock Drier Tender Name Role Phone Patrick Muniz MD Primary Care Provider [phone] Allergies Active Allergy Reactions Criticality Noted Date [...] patient's age to complete this topic Insurance [facility] Care Teams Raw Stock Drier Tender Relationship Specialty Start Date End Date Patrick Muniz MD [address] [address] PCP - General Family Medicine 10/21/24
--- OUTSIDE RECORDS SUMMARY | 2025-01-21 13:02 | XMS_ITS | Patient Health Record ---
Author Organization [facility] Address [address] [place] [address] Care Team Providers Care Housekeeping Manager Name Role Phone Moises Winters Jr Reason For Referral No Information Plan Of Treatment No Information
== END 2025-01-21 10:26 | disposition home or self-care (01) ==
LOC: HO.LAB 10:25
PROVIDERS: PCP Family Medicine; Visit Provider Urology
DX: R39.15 Urgency of urination (principal)
CPT/HCPCS: 81001; 87086

== ENCOUNTER 2025-01-26 08:03 | Outpatient (AMB) | payer MEDICARE, SELFPAY ==
[2025-01-26 08:21] LABS: Prothrombin Time Whole Bld POC 24.9 sec (11.1-13.5); ~PT, ~INR - Anti Coag Clinic 2.1 (0.9-1.1)
--- NOTE | 2025-01-26 08:27 | MHC.OFFVISCO ---
Intake Intake Visit Reasons: Anticoagulation Allergies hydralazine (Hydralazine) Allergy (Unknown, Verified 01/26/25 08:16) SEVERE HEADACHE Medication List - Last Reconciled 01/26/25 by Elisa Jon RN blood sugar diagnostic (OneTouch Ultra Test strips) USE 1 STRIP DIRECTED TO CHECK BLOOD GLUCOSE TWICE DAILY FOR DIABETES furosemide (Lasix) 40 mg PO DAILY glipizide ER 2.5 mg PO DAILY lancets One Touch Ultra Test Strips As directed to test blood sugar twice a day. Ninety day supply levothyroxine 125 mcg PO DAILY@0600 90 days meclizine 12.5 mg PO BID-QID PRN metoprolol succinate ER 25 mg PO DAILY 90 days OneTouch UltraSoft 2 Lancet (lancets) check BG once daily NS spironolactone 25 mg PO DAILY tadalafil 5 mg PO DAILY 90 days tafamidis 61 mg PO DAILY tamsulosin 0.4 mg PO BEDTIME 90 days trazodone 25 mg (1/2 x 50 mg) PO BEDTIME PRN 30 days warfarin 4 mg See Protocol PO DAILY@1800 Nursing Note INR: 2.1 in therapeutic range Medications and supplements reviewed No changes in health, diet, medications, or supplements, Denies any signs and symptoms of bleeding or bruising or clotting. 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
== END 2025-01-26 08:34 | disposition home or self-care (01) ==
LOC: HO.ACS 08:03
PROVIDERS: PCP Family Medicine; Visit Provider Internal Medicine Medical Oncology
DX: Z79.01 Long term (current) use of anticoagulants (principal)

== ENCOUNTER → 2025-01-26 08:03 | Outpatient (BNVA) | payer MEDICARE, SELFPAY | PROVIDERS: PCP Family Medicine; Visit Provider Internal Medicine Medical Oncology | DX: I48.0 Paroxysmal atrial fibrillation (principal); Z79.01 Long term (current) use of anticoagulants; Z51.81 Encounter for therapeutic drug level monitoring | CPT/HCPCS: 85610; 99211 ==

== ENCOUNTER → 2025-01-27 08:56 | Outpatient (BNVA) | payer MEDICARE, SELFPAY | PROVIDERS: PCP Family Medicine; Visit Provider Urology | DX: R39.15 Urgency of urination (principal) | CPT/HCPCS: 51798 ==

== ENCOUNTER 2025-02-06 07:11 | Outpatient (REF) | payer MEDICARE, SELFPAY ==
--- OUTSIDE RECORDS SUMMARY | 2025-02-06 07:14 | XMS_ITS | Patient Health Record ---
Author Organization [facility] Address [address] [place] [address] Care Team Providers Care Cleaner Furniture Name Role Phone Moises Winters Jr [phone] Reason For Referral No Information Plan Of Treatment No Information
--- OUTSIDE RECORDS SUMMARY | 2025-02-06 07:14 | XMS_ITS | Clinical Summary ---
Author Organization [facility] Address [address] [place] [address] Phone Care Team Providers Care Binder Roller Name Role Phone Patrick Muniz MD Primary Care Provider [phone] [phone] Allergies Active Allergy Reactions Criticality Noted Date [...] Visual Foot Exam 02/07/2023 Diabetes: Ophthalmology Exam 12/30/2025 12/30/2024 Influenza Vaccine Completed 02/05/2025, , 01/05/2022, Additional history exists Hepatitis B Vaccine Aged Out No longe r eligible based on patient's age to complete this topic Insurance [facility] Care Teams Binder Roller Relationship Specialty Start Date End Date Patrick Muniz MD [address] [address] PCP - General Family Medicine 10/21/24
[2025-02-06 08:02] LABS: Anion Gap 12 (12-20); Blood Urea Nitrogen 58 mg/dL (9-16); Carbon Dioxide 27 mmol/L (22-29); Chloride 107 mmol/L (96-108); Estimated Glomerular Filt Rate 44; Potassium 4.2 mmol/L (3.3-5.1); Sodium 142 mmol/L (135-145)
[2025-02-06 09:38] LABS: Protein/Creatinine Ratio, Ur 0.13 (<0.2); Total Protein Urine Random 9 mg/dL (<12)
== END 2025-02-06 07:12 | disposition home or self-care (01) ==
LOC: HO.LAB 07:11
PROVIDERS: PCP Family Medicine; Visit Provider Internal Medicine Nephrology
DX: I12.9 Hypertensive chronic kidney disease with stage 1 through stage 4 chronic kidney disease, or unspecified chronic kidney disease (principal); N18.31 Chronic kidney disease, stage 3a
CPT/HCPCS: 36415; 80051; 82565; 82570; 84156; 84520

== ENCOUNTER 2025-02-09 07:56 | Outpatient (AMB) | payer MEDICARE, SELFPAY ==
--- OUTSIDE RECORDS SUMMARY | 2025-02-09 08:00 | XMS_ITS | Clinical Summary ---
Author Organization [facility] Address [address] [place] [address] Phone Care Team Providers Care Truss Maker Name Role Phone Patrick Muniz MD Primary Care Provider [phone] Allergies Active Allergy Reactions Criticality Noted Date [...] patient's age to complete this topic Insurance [facility] Care Teams Truss Maker Relationship Specialty Start Date End Date Patrick Muniz MD [address] [address] PCP - General Family Medicine 10/21/24
--- OUTSIDE RECORDS SUMMARY | 2025-02-09 08:01 | XMS_ITS | Patient Health Record ---
Author Organization [facility] Address [address] [place] [address] Care Team Providers Care Farm Management Agent Name Role Phone Moises Winters Jr Reason For Referral No Information Plan Of Treatment No Information
[2025-02-09 08:12] LABS: Prothrombin Time Whole Bld POC 46.9 sec (11.1-13.5); ~PT, ~INR - Anti Coag Clinic 3.9 (0.9-1.1)
--- NOTE | 2025-02-09 08:22 | MHC.OFFVISCO ---
Intake Intake Visit Reasons: Anticoagulation Allergies hydralazine (Hydralazine) Allergy (Unknown, Verified 02/09/25 08:03) SEVERE HEADACHE Medication List - Last Reconciled 02/09/25 by Elisa Jon RN blood sugar diagnostic (OneTouch Ultra Test strips) USE 1 STRIP DIRECTED TO CHECK BLOOD GLUCOSE TWICE DAILY FOR DIABETES furosemide (Lasix) 40 mg PO DAILY glipizide ER 2.5 mg PO DAILY lancets One Touch Ultra Test Strips As directed to test blood sugar twice a day. Ninety day supply levothyroxine 125 mcg PO DAILY@0600 90 days meclizine 12.5 mg PO BID-QID PRN metoprolol succinate ER 25 mg PO DAILY 90 days OneTouch UltraSoft 2 Lancet (lancets) check BG once daily NS spironolactone 25 mg PO DAILY tadalafil 5 mg PO DAILY 90 days tafamidis 61 mg PO DAILY tamsulosin 0.4 mg PO BEDTIME 90 days trazodone 25 mg (1/2 x 50 mg) PO BEDTIME PRN 30 days vibegron (Gemtesa) 75 mg PO DAILY warfarin 4 mg See Protocol PO DAILY@1800 Nursing Note INR: 3.9 OUT OF therapeutic range Medications and supplements reviewed - NOT taking over active bladder med due to cost Has been eating craisens - enc to decrease the amt as the can raise the INR * Had labs done recently BUN and Creat elevated- possible r/t to elevated INR Denies any signs and symptoms of bleeding or bruising or clotting. Bleeding, bruising, clotting discussed Nutritional guidance given - greens today and weekly Dose: hold today then decrease to 2mg x 3 days/ 4mg x 4 days F/U INR: 10 days Patient verbalizes understanding of instructions given Anti-Coag Initial Assessment Social Hx Patient Tobacco Use Status: Former Tobacco user alcohol intake: former Alcohol intake frequency: does not drink Coding Level of Care Code Est Patient Level 1 Diagnoses Current use of anticoagulant therapy Z79.01 Assessment & Plan Assessment & Plan (1) Current use of anticoagulant therapy: Comment: critical high INR Code(s): Z79.01 - half-way (current) use of 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 Medications: On Hold vibegron (Gemtesa) Hold Comment: COST 75 mg PO DAILY 30 tabs 2RF
== END 2025-02-09 08:41 | disposition home or self-care (01) ==
LOC: HO.ACS 07:56
PROVIDERS: PCP Family Medicine; Visit Provider Internal Medicine Medical Oncology
DX: Z79.01 Long term (current) use of anticoagulants (principal)

== ENCOUNTER → 2025-02-09 07:56 | Outpatient (BNVA) | payer MEDICARE, SELFPAY | PROVIDERS: PCP Family Medicine; Visit Provider Internal Medicine Medical Oncology | DX: I48.0 Paroxysmal atrial fibrillation (principal); Z51.81 Encounter for therapeutic drug level monitoring; Z79.01 Long term (current) use of anticoagulants | CPT/HCPCS: 85610; 99211 ==

== ENCOUNTER 2025-02-17 08:27 | Outpatient (REF) | payer MEDICARE, SELFPAY ==
--- NOTE | ~2025-02-17 | XR_ITS ---
CLINICAL HISTORY: M79.641 - Pain in right hand 4 view right hand Comparison: CR/SR - XR OUTSIDE IMAGES - 02/02/25 12:14 EDT Findings: No fractures or dislocations. Moderate arthritic change of the STT joint and the 1st metacarpophalangeal joint. Mild arthritic changes of the 1st carpometacarpal joint and multiple interphalangeal joints. No significant change since the prior study. No erosions. No radiopaque foreign body. There are extensive vascular calcifications. IMPRESSION: No acute bony abnormality. Chronic findings as above. This document has been electronically signed by: Henrietta Longoria MD on 02/18/2025 16:43:57
--- OUTSIDE RECORDS SUMMARY | 2025-02-18 08:51 | XMS_ITS | Patient Health Record ---
Author Organization [facility] Address [address] [place] [address] Care Team Providers Care Singe Machine Operator Name Role Phone Moises Winters Jr Reason For Referral No Information Plan Of Treatment No Information
--- OUTSIDE RECORDS SUMMARY | 2025-02-18 08:51 | XMS_ITS | Clinical Summary ---
Author Organization [facility] Address [address] [place] [address] Phone Care Team Providers Care Research And Evaluation Analyst Name Role Phone Patrick Muniz MD Primary Care Provider [phone] Allergies Active Allergy Reactions Criticality Noted Date [...] patient's age to complete this topic Insurance [facility] Care Teams Research And Evaluation Analyst Relationship Specialty Start Date End Date Patrick Muniz MD [address] [address] PCP - General Family Medicine 10/21/24
== END 2025-02-17 08:28 | disposition home or self-care (01) ==
LOC: HO.HOSX 08:27
PROVIDERS: Visit Provider Orthopaedic Surgery
DX: M65.4 Radial styloid tenosynovitis [de Quervain] (principal); M65.351 Trigger finger, right little finger; E11.9 Type 2 diabetes mellitus without complications; Z83.3 Family history of diabetes mellitus
CPT/HCPCS: 20550; 73130; 99202; J1100; J2003

== ENCOUNTER 2025-02-17 08:35 | Outpatient (AMB) | payer MEDICARE, SELFPAY ==
[2025-02-17 08:53] VITALS: BMI 27.6
--- NOTE | 2025-02-17 08:53 | A.OFFVIS_ITS ---
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 States pain started about 4 weeks ago s/p a door slamming on his hand. Pain is mainly on his radial aspect of hand at base of his thumb. States he has tried ice packa dn heat pads with no relief. Pain is triggered by twisting and pinching motion. He is limited ROM with his index finger. His right small finger triggers on and off when making a fist. Locking of small finger occurs randomly on his left hand as well. Denies numbness or tingling. 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 He complains of right radial sided wrist & thumb pain, onset ~4 weeks ago after an injury. He says he accidentally closed a door on his hand. His pain is worse with pinching, gripping, & twisting activities. He found limited relief from heat or cold. He also complains of occasional locking of his right small fingers. He has a Hx of a left ring trigger finger. He denies any numbness or tingling. He has Diabetes, CKD, CAD, Afib, and a Hx of TIA. He is on Warfarin. His most recent HgA1c was 7.1% on 12/11/24. 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 He continues to perform his Kat[place] daily for exercise. [facility] Medical History (Updated 02/17/25 @ 09:25 by Blayne Ramirez) Lower extremity edema Sialadenitis Benign cyst of skin Chest pain RUQ pain Wheezing Elevated diaphragm (~10/13/24) Pulmonary nodules Aortic stenosis Edema CAD (coronary artery disease) Diabetes type 2, controlled Elevated prostate specific antigen between 10 and 19 ng/ml Atrial fibrillation Jayy's disease Elevated morning serum cortisol level Surgical History History of cardiac cath Hx of tonsillectomy Hx of colonoscopy Family History Father Colon cancer Mother HTN (hypertension) Type 2 diabetes mellitus Brother No problems noted. Sister No problems noted. Son No problems noted. Son No problems noted. Son No problems noted. Daughter No problems noted. Daughter No problems noted. Social History Household Members: None Housing: Apartment Alcohol intake: former Year quit: 1979 Comment: pt politley refusing assistance to BR and alarms Patient Tobacco Use Status: Former Tobacco user Years Smoked: 45+ e-Cigarette/Vaping Use: Never Used Second Hand Smoke Exposure: No Advance Directives Date on File: 10/14/24 service: Yes Current occupational status: retired Current occupational exposures/hazards: No Cognitive needs: No Hearing needs: Yes Vision needs: No Review of Systems Const All systems reviewed & are unremarkable except as noted in HPI and below Physical Exam Vital Signs: BMI result Body Mass Index 27.6 Const General: cooperative, healthy appearing and no acute distress Orientation/consciousness: patient oriented x3 HEENT Head: Yes normocephalic and Yes atraumatic Eyes EOM: EOMs intact bilaterally Resp Effort & Inspection: normal respiratory effort and able to speak in complete sentences Cardio Jugular venous distension: no JVD Skin General skin exam: turgor normal Rashes: no rashes Neuro General: patient oriented x3 Extrem Other: Evaluation of Right Upper Extremity: The patient is alert, oriented, and in no acute distress Neuro: Median, Ulnar, Radial nerves motor and sensory intact and sensation is normal to the tips of all digits Vascular: Cap refill brisk ROM: He can make a fist and extend all his digits Visible & palpable locking & catching of the small finger Tender over the small finger A1 vesta Skin: No lacerations or abrasions. General: No Ecchymosis. No Erythema or evidence of infection. Most tender over 1st dorsal compartment Positive Vale test on the right Negative Vale test on the left No tenderness over the basal joint No tenderness over the MCP joint Thumb is ulnarly deviated at the MCP joint, which does not bother him Radiographs: 3 views of the right hand were taken and viewed by me today in clinic. They show ulnar deviation at the thumb MCP joint, likely due to an old UCL injury Psych Appearance: grossly normal Affect: normal affect Attitude: cooperative Office Procedures AMB Fracture Care Details: No fracture, injection Fracture Billing Code: Fracture Billing Code Assessment & Plan Assessment & Plan (1) De Quervain's tenosynovitis, right: Code(s): M65.4 - Radial styloid tenosynovitis [de Quervain] Category: Medical (2) Trigger little finger of right hand: Code(s): M65.351 - Trigger finger, right little finger Category: Medical (3) Diabetes type 2, controlled: Code(s): E11.9 - Type 2 diabetes mellitus without complications Category: Medical Plan Assessment & Plan: 1. Right de Quervains tenosynovitis This is his chief complaint today 2. Right small finger trigger finger I educated him about these conditions I discussed operative and non-operative treatment options The patient would like to proceed with an injection for this thumb. His trigger finger is not as bothersome for him at this time I discussed activity modification, they should limit or avoid any heavy or repetitive pinching or gripping activities He says he has a splint similar to a Comfort Cool at home. I advised him to wear this with daily activities for the next few weeks. He should remove this at rest. He should work on ROM exercises, and avoid any gripping or strengthening activities I discussed the use of assistive devices for daily activity Injection #1: The risks and benefits of a steroid injection including but not limited to risk of damage to blood vessels, nerves, tendons, infection, skin bleaching, failure to improve symptoms, increased pain, and possible need for further injections or other intervention were discussed with the patient and the patient wishes to proceed with the steroid injection. Once consent was obtained, I sterilely prepped the area over the 1st dorsal compartment of the Right 1st dorsal compartment. I then injected the 1st dorsal compartment with a combination of 1 mL of dexamethasone (4mg/ml), and 1% lidocaine. The patient tolerated the procedure well with no complications and good resolution of their symptoms prior to leaving clinic. He will follow up in 7-8 weeks to see how he is doing, and to re-evaluate his trigger finger as well. If he is doing well he may cancel this appointment. Please note that greater than 30 minutes was spent with this patient going over the history, evaluating the patient and radiographs, formulating possible treatment options, discussing them with the patient, and documenting the visit. Scribed for Coco Dangelo MD by Blayne Ramirez, medical billing associate, on 02/17/25 at 9:15 AM, EST. Orders: Orders XR hand RT min 3V Today M79.641 - Pain in right hand Coding Level of Care Code New Pt Level 3 (05245) Diagnoses De Quervain's tenosynovitis, right M65.4 Trigger little finger of right hand M65.351 Diabetes type 2, controlled E11.9 CPT Codes Fracture Care - Fracture Billing Code: Fracture Billing Code ([id number])
--- OUTSIDE RECORDS SUMMARY | 2025-02-17 08:56 | XMS_ITS | Clinical Summary ---
Author Organization [facility] Address [address] [place] [address] Phone Care Team Providers Care Procedure Tech Name Role Phone Patrick Muniz MD Primary Care Provider [phone] Allergies Active Allergy Reactions Criticality Noted Date [...] Insurance [facility] Care Teams Procedure Tech Relationship Specialty Start Date End Date Patrick Muniz MD [address] [address] PCP - General Family Medicine 10/21/24
--- OUTSIDE RECORDS SUMMARY | 2025-02-17 08:57 | XMS_ITS | Patient Health Record ---
Author Organization [facility] Address [address] [place] [address] Care Team Providers Care Tester Armature Or Fields Name Role Phone Moises Winters Jr [phone] Reason For Referral No Information Plan Of Treatment No Information
== END 2025-02-17 09:52 | disposition home or self-care (01) ==
LOC: HO.HOS 08:35
PROVIDERS: PCP Family Medicine; Visit Provider Orthopaedic Surgery
DX: M65.4 Radial styloid tenosynovitis [de Quervain] (principal); M65.351 Trigger finger, right little finger; E11.9 Type 2 diabetes mellitus without complications
CPT/HCPCS: 20550; 99203

== ENCOUNTER → 2025-02-17 08:37 | Outpatient (BNV) | payer MEDICARE, SELFPAY | PROVIDERS: Visit Provider Radiology Diagnostic Radiology | DX: M18.11 Unilateral primary osteoarthritis of first carpometacarpal joint, right hand (principal) | CPT/HCPCS: 73130 ==

== ENCOUNTER 2025-02-18 08:57 | Outpatient (AMB) | payer BC, SELFPAY ==
--- NOTE | 2025-02-18 09:12 | A.OFFPC_ITS ---
Vital Signs 02/18/25 09:20 Height 5 ft 6 in Weight 172 lb 2 oz BMI 27.8 BP 127/61 Blood Pressure Location Lt brachial Position Sitting Respiration 16 Pulse 61 Pulse Source Pulse Oximeter Temp 97.5 F Temp Source Oral Pulse Oximetry (%) 96 Oxygen Delivery Method Room Air Intake Visit Reasons: f/u HTN, heart failure, chronic conditions Intake Note: patient here for follow up on HTN, heart failure, chronic conditions Utilization Management Rn Required: No Allergies hydralazine (Hydralazine) Allergy (Unknown, Verified 02/18/25 09:15) SEVERE HEADACHE Medication List - Last Reconciled 02/18/25 by Patrick Muniz MD blood sugar diagnostic (OneTouch Ultra Test strips) USE 1 STRIP DIRECTED TO CHECK BLOOD GLUCOSE TWICE DAILY FOR DIABETES furosemide (Lasix) 40 mg PO DAILY glipizide ER 2.5 mg PO DAILY lancets One Touch Ultra Test Strips As directed to test blood sugar twice a day. Ninety day supply levothyroxine 125 mcg PO DAILY@0600 90 days meclizine 12.5 mg PO BID-QID PRN metoprolol succinate ER 25 mg PO DAILY 90 days OneTouch UltraSoft 2 Lancet (lancets) check BG once daily NS spironolactone 25 mg PO DAILY tadalafil 5 mg PO DAILY 90 days tafamidis 61 mg PO DAILY tamsulosin 0.4 mg PO BEDTIME 90 days trazodone 25 mg (1/2 x 50 mg) PO BEDTIME PRN 30 days vibegron (Gemtesa) 75 mg PO DAILY Held on 02/09/25. Instructions: COST warfarin 4 mg See Protocol PO DAILY@1800 Tobacco use date assessed: 02/18/25 Fall risk assessment: No Falls in past year Last assessed Fall Risk: 02/18/25 Dental Screening Dental Screen Date: 02/18/25 Did you have a dental visit in the last 12 months?: No Did you have a dental problem in the last 6 months where you did not have access to dental care?: No Was dental information given to patient?: No HPI f/u HTN, heart failure, chronic conditions HPI Details 89 y/o male presents to f/u [facility]. Creatinine level checked 02/06/25. 1.51 mg/dL. Pt notes he sees his ammonia box operator next week. BP today 127/61, 61p. He is on metoprolol 25mg daily, spironolactone 25mg daily. A1c today 7.5%. He is only on glipizide 2.5mg daily. Pt now diagnosed with cardiac amlyloidosis. Cardiology has referred him to a specialist. HPI Comments History of Present Illness0 Details Documentation assistance for Patrick Muniz MD, was provided by Xander Mendoza,? Tin Pot Operator on 02/18/2025 at 11:06 AM EST. I, Dr. Muniz, have read, observed, and verified documentation. ? [facility] Medical History (Updated 02/17/25 @ 09:25 by Blayne Ramirez) Lower extremity edema Sialadenitis Benign cyst of skin Chest pain RUQ pain Wheezing Elevated diaphragm (~10/13/24) Pulmonary nodules Aortic stenosis Edema CAD (coronary artery disease) Diabetes type 2, controlled Elevated prostate specific antigen between 10 and 19 ng/ml Atrial fibrillation Jayy's disease Elevated morning serum cortisol level Surgical History History of cardiac cath Hx of tonsillectomy Hx of colonoscopy Family History Father Colon cancer Mother HTN (hypertension) Type 2 diabetes mellitus Brother No problems noted. Sister No problems noted. Son No problems noted. Son No problems noted. Son No problems noted. Daughter No problems noted. Daughter No problems noted. Social History Household Members: None Housing: Apartment Alcohol intake: former Year quit: 1979 Comment: pt politley refusing assistance to BR and alarms Patient Tobacco Use Status: Former Tobacco user Years Smoked: 45+ e-Cigarette/Vaping Use: Never Used Second Hand Smoke Exposure: No Advance Directives Date on File: 10/14/24 service: Yes Current occupational status: retired Current occupational exposures/hazards: No Cognitive needs: No Hearing needs: Yes Vision needs: No Questionnaire Thrive Questionnaire Date Thrive assessed: 07/24/24 I am a: Patient What is your living situation today?: I have a steady place to live Within the past 12 months, did the food you bought not last and you didn't have the money to get more?: I choose not to answer this question Within the past 12 months, did you worry whether your food would run out before you got money to buy more?: I choose not to answer this question Do you have trouble paying for medicines?: I choose not to answer this question Do you have trouble getting transportation to medical appointments?: I choose not to answer this question Do you have trouble paying your heating and electricity bill?: No Do you have trouble taking care of your child, family member or friend?: No Do you have trouble with day-to-day activities such as bathing, preparing meals, shopping, managing finances, etc.?: No Are you currently unemployed and looking for a job?: No Are you interested in more education?: No Please select the resources that you would like help with: None Currently or been in a relationship where the following occur: I choose not to answer THRIVE Score: 0 KOBE-7 AMB Questionnaire KOBE-7 Date KOBE - 7 assessed: 07/17/23 Source: Developed by Drs. [place] Abdi, Ermelinda Hutton, Nagi Berkowitz and colleagues, with an educational noni from [employer]. Review of Systems Const Denies chills, Denies fatigue, Denies fever(s), Denies headache(s) and Denies weakness ENT Denies dizziness and Denies headache(s) Card Denies chest pain, Denies lightheadedness, Denies dyspnea and Denies other (Palpitations) Resp Denies cough, Denies dyspnea, Denies wheezing and Denies other ( shortness of breath) Musc Denies numbness and Denies tingling Neuro Denies dizziness, Denies headache(s), Denies numbness, Denies tingling, Denies p aresthesias and Denies weakness Psych Denies anxiety and Denies depression Endo Denies fatigue Aller/Immun Denies wheezing Physical exam (Primary Care) Vital Signs: Last Vital Signs Temp 97.5 F 02/18/25 09:20 Pulse 61 02/18/25 09:20 Resp 16 02/18/25 09:20 BP 127/61 02/18/25 09:20 Pulse Ox 96 02/18/25 09:20 Oxygen Delivery Method Room Air 02/18/25 09:20 BMI result Body Mass Index 27.8 Tobacco/Smoking Status: Tobacco use Status Tobacco use date assessed 02/18/25 02/18/25 09:25 Patient Tobacco Use Status Former Tobacco user 02/18/25 09:25 e-Cigarette/Vaping Use Never Used 02/18/25 09:25 Thrive Assessment: Date of Thrive Assessment Date Thrive assessed 07/24/24 02/18/25 09:25 Currently or been in a relationship where the following occur: I choose not to answer Const General: no acute distress and well developed Nutritional Appearance: well nourished Orientation/consciousness: patient oriented x3 HENMT Head: Yes normocephalic and Yes atraumatic Eyes General: appearance normal, both eyes and all related structures Pupils: Equal, round and reactive pupils present EOM: EOMs intact bilaterally Resp Effort & Inspection: normal respiratory effort Auscultation: clear to auscultation bilaterally Cardio Rate: regular rate Rhythm: regular rhythm Heart sounds: S1 normal heart sound present, S2 normal heart sound present, no gallops, no murmurs and no rubs Neuro General: patient oriented x3 and gait normal Cranial nerves: Yes Equal, round and reactive pupils present Psych Affect: normal affect Results AMB Hemoglobin A1c AMB Hemoglobin A1c 7.1 % Last Edit by Arleth Trejo CMA on 02/18/25 10:52 Results Reviewed Results Reviewed: Laboratory Last Values Hgb A1c (Clinic) 7.1 % (4.0-6.0) H 02/18/25 10:47 Coding Level of Care Code Est Pt Level 5 (63367) Diagnoses Essential hypertension I10 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 Goal is less than 130/80 Continue current medications (2) Heart failure: Code(s): I50.9 - Heart failure, unspecified Category: Medical Qualifiers: Heart failure chronicity: chronic Heart failure type: combined systolic and diastolic Qualified Code(s): I50.42 - Chronic combined systolic (congestive) and diastolic (congestive) heart failure Plan: BNP last checked in December was high Continue furosemide Patient now diagnosed with cardiac amyloidosis-see below (3) Cardiac amyloidosis: Code(s): E85.4 - Organ-limited amyloidosis; I43 - Cardiomyopathy in diseases classified elsewhere Category: Medical Plan: 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 Work on diabetic diet Increasing glipizide ER to 5 mg daily He also notes that his morning blood sugar today was high-he just received a steroid injection yesterday. (6) CKD (chronic kidney disease) stage 3, GFR 30-59 ml/min: Code(s): N18.30 - Chronic kidney disease, stage 3 unspecified Category: Medical Qualifiers: Chronic kidney disease stage 3 subtype: stage 3a (GFR 45-59) Qualified Code(s): N18.31 - Chronic kidney disease, stage 3a Plan: Creatinine level has been rising Encouraged regular hydration, avoid salt sodium, avoid NSAIDs Follow-up with nephrology. He has an upcoming appointment. Plan He will return in 3 months to follow-up hypertension, diabetes and CKD. Labs are ordered I increased his Glipizide Orders: Orders Basic Metabolic Panel Today N18.31 - Chronic kidney disease, stage 3a, Z00.00 - Encounter for general adult medical examination without abnormal findings AMB Hemoglobin A1c Today E11.9 - Type 2 diabetes mellitus without complications Medications: Changed From glipizide ER 2.5 mg PO DAILY 90 tabs 0RF To glipizide ER 5 mg PO DAILY 90 tabs 2RF 90 days
[2025-02-18 09:20] VITALS: BP 127/61; PULSE 61; RESP 16; TEMP 36.4; O2SAT 96; BMI 27.8
== END 2025-02-18 11:00 | disposition home or self-care (01) ==
LOC: HO.HMCFM 08:58
PROVIDERS: PCP Family Medicine; Visit Provider Family Medicine
DX: I12.9 Hypertensive chronic kidney disease with stage 1 through stage 4 chronic kidney disease, or unspecified chronic kidney disease (principal); I50.42 Chronic combined systolic (congestive) and diastolic (congestive) heart failure; N18.31 Chronic kidney disease, stage 3a; E85.4 Organ-limited amyloidosis; I43 Cardiomyopathy in diseases classified elsewhere; E11.9 Type 2 diabetes mellitus without complications; I25.10 Atherosclerotic heart disease of native coronary artery without angina pectoris

== ENCOUNTER → 2025-02-18 08:57 | Outpatient (BNVA) | payer BC, SELFPAY | PROVIDERS: PCP Family Medicine; Visit Provider Family Medicine | DX: E11.22 Type 2 diabetes mellitus with diabetic chronic kidney disease (principal); I13.0 Hypertensive heart and chronic kidney disease with heart failure and stage 1 through stage 4 chronic kidney disease, or unspecified chronic kidney disease; I50.42 Chronic combined systolic (congestive) and diastolic (congestive) heart failure; N18.31 Chronic kidney disease, stage 3a; E85.4 Organ-limited amyloidosis; I43 Cardiomyopathy in diseases classified elsewhere; I25.10 Atherosclerotic heart disease of native coronary artery without angina pectoris | CPT/HCPCS: 83036 ==

== ENCOUNTER 2025-02-19 07:54 | Outpatient (AMB) | payer BC, SELFPAY ==
--- OUTSIDE RECORDS SUMMARY | 2025-02-19 07:57 | XMS_ITS | Clinical Summary ---
Author Organization [facility] Address [address] [place] [address] Phone Care Team Providers Care Nanosystems Engineer Name Role Phone Patrick Muniz MD Primary Care Provider [phone] Allergies Active Allergy Reactions Criticality Noted Date [...] (02/07/2023): Aug 24, 2021 Entered By: SKYLAR GREGROY Comment: stable creat level approx 1.5 over [...] complete this topic Insurance [facility] Care Teams Nanosystems Engineer Relationship Specialty Start Date End Date Patrick Muniz MD [address] [address] PCP - General Family Medicine 10/21/24
--- OUTSIDE RECORDS SUMMARY | 2025-02-19 07:57 | XMS_ITS | Patient Health Record ---
Author Organization [facility] Address [address] [place] [address] Care Team Providers Care Mobile Phone Salesperson Name Role Phone Moises Winters Jr [phone] Reason For Referral No Information Plan Of Treatment No Information
[2025-02-19 08:03] LABS: Prothrombin Time Whole Bld POC 33.4 sec (11.1-13.5); ~PT, ~INR - Anti Coag Clinic 2.8 (0.9-1.1)
--- NOTE | 2025-02-19 08:05 | MHC.OFFVISCO ---
Intake Intake Visit Reasons: Anticoagulation Allergies hydralazine (Hydralazine) Allergy (Unknown, Verified 02/19/25 07:58) SEVERE HEADACHE Medication List - Last Reconciled 02/19/25 by Elisa Jon RN blood sugar diagnostic (OneTouch Ultra Test strips) USE 1 STRIP DIRECTED TO CHECK BLOOD GLUCOSE TWICE DAILY FOR DIABETES furosemide (Lasix) 40 mg PO DAILY glipizide ER 5 mg PO DAILY 90 days lancets One Touch Ultra Test Strips As directed to test blood sugar twice a day. Ninety day supply levothyroxine 125 mcg PO DAILY@0600 90 days meclizine 12.5 mg PO BID-QID PRN metoprolol succinate ER 25 mg PO DAILY 90 days OneTouch UltraSoft 2 Lancet (lancets) check BG once daily NS spironolactone 25 mg PO DAILY tadalafil 5 mg PO DAILY 90 days tafamidis 61 mg PO DAILY tamsulosin 0.4 mg PO BEDTIME 90 days trazodone 25 mg (1/2 x 50 mg) PO BEDTIME PRN 30 days vibegron (Gemtesa) 75 mg PO DAILY Held on 02/09/25. Instructions: COST warfarin 4 mg See Protocol PO DAILY@1800 Nursing Note INR: 2.8 in therapeutic range Had cortisone injection yesterday in right thumb - explained to pt his blood sugar may spike - he stated he felt unusual this morning but better now that he has walked around Medications and supplements reviewed No changes in health, diet, medications, or supplements, Denies any signs and symptoms of bleeding or bruising or clotting. Bleeding, bruising, clotting discussed Nutritional guidance given Dose: 2MG X 3 DAYS/ 4MG X 4 DAYS F/U INR: 2 WEEKS Patient verbalizes understanding of instructions given Anti-Coag Initial Assessment Social Hx Patient Tobacco Use Status: Former Tobacco user alcohol intake: former Alcohol intake frequency: does not drink Coding Level of Care Code Est Patient Level 1 Diagnoses Current use of anticoagulant therapy Z79.01 Assessment & Plan Assessment & Plan (1) Current use of anticoagulant therapy: Comment: critical high INR Code(s): Z79.01 - custodial (current) use of 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
== END 2025-02-19 08:15 | disposition home or self-care (01) ==
LOC: HO.ACS 07:54
PROVIDERS: PCP Family Medicine; Visit Provider Internal Medicine Medical Oncology
DX: Z79.01 Long term (current) use of anticoagulants (principal)

== ENCOUNTER → 2025-02-19 07:54 | Outpatient (BNVA) | payer BC, SELFPAY | PROVIDERS: PCP Family Medicine; Visit Provider Internal Medicine Medical Oncology | DX: I48.0 Paroxysmal atrial fibrillation (principal); Z51.81 Encounter for therapeutic drug level monitoring; Z79.01 Long term (current) use of anticoagulants | CPT/HCPCS: 85610; 99211 ==

== ENCOUNTER 2025-02-25 10:22 | Outpatient (AMB) | payer BC, SELFPAY ==
--- NOTE | 2025-02-25 11:03 | A.OFFVIS_ITS ---
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 Ninety day supply levothyroxine 125 mcg PO DAILY@0600 90 days meclizine 12.5 mg PO BID-QID PRN metoprolol succinate ER 25 mg PO DAILY 90 days OneTouch UltraSoft 2 Lancet (lancets) check BG once daily NS spironolactone 25 mg PO DAILY tadalafil 5 mg PO DAILY 90 days tafamidis 61 mg PO DAILY tamsulosin 0.4 mg PO BEDTIME 90 days trazodone 25 mg (1/2 x 50 mg) PO BEDTIME PRN 30 days vibegron (Gemtesa) 75 mg PO DAILY Held on 02/09/25. Instructions: COST warfarin 4 mg See Protocol PO DAILY@1800 HPI Comments Details: [age] year gentleman with chronic atrial fibrillation on Coumadin, peripheral edema and recent admission with congestive heart failure. He was transferred to [facility] where she underwent cardiac catheterization which showed no significant coronary disease as before. He has mild LV dysfunction by echocardiography. He has low voltage on EKG with a small pericardial effusion and we were planning to work him up for amyloidosis. Apparently saw the [facility] RN and was urgently brought back because she was very concerned about how he looked like. He is saying that he gets short of breath easily. Is denying any chest discomfort currently. He is currently not on any diuretics. He has gained 5 lb in the last few days. He has significant peripheral edema. He is also complaining of choking sensation which wakes him from his sleep after few hour of sleep. He is saying he has to cough to clear his throat and this is something happening more recently. 12/03/2024: He is here for follow-up. Recently seen in the office when he was in congestive heart failure. Started on Lasix. He has done well with that. He continues to have some edema doses but overall his breathing is better. Blood pressure is elevated. 02/25/2025: [place] is here for follow-up. He recently had heart failure episode and was diuresed. Overall he has been doing well and is able to walk around without any significant symptoms. 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 I started him on Tafamidis but it was too expensive for him to afford and he has not filled the script. [facility] Medical History Lower extremity edema Sialadenitis Benign cyst of skin Chest pain RUQ pain Wheezing Elevated diaphragm (~10/13/24) Pulmonary nodules Aortic stenosis Edema CAD (coronary artery disease) Diabetes type 2, controlled Elevated prostate specific antigen between 10 and 19 ng/ml Atrial fibrillation [place]'s disease Elevated morning serum cortisol level Surgical History History of cardiac cath Hx of tonsillectomy Hx of colonoscopy Family History Father Colon cancer Mother HTN (hypertension) Type 2 diabetes mellitus Brother No problems noted. Sister No problems noted. Son No problems noted. Son No problems noted. Son No problems noted. Daughter No problems noted. Daughter No problems noted. Social History Household Members: None Housing: Apartment Alcohol intake: former Year quit: 1979 Comment: pt politley refusing assistance to BR and alarms Patient Tobacco Use Status: Former Tobacco user Years Smoked: 45+ e-Cigarette/Vaping Use: Never Used Second Hand Smoke Exposure: No Advance Directives Date on File: 10/14/24 service: Yes Current occupational status: retired Current occupational exposures/hazards: No Cognitive needs: No Hearing needs: Yes Vision needs: No Review of Systems Const Denies chills, Denies fatigue, Denies fever(s), Denies frequent falls, Denies weakness, Denies weight gain and Denies weight loss ENT Denies dizziness Card Denies chest pain, Denies leg edema, Denies lightheadedness, Denies pal pitations, Denies dyspnea and Denies dyspnea on exertion Resp Denies cough, Denies dyspnea and Denies dyspnea on exertion GI Denies hematochezia Musc Denies abnormal gait, Denies muscle weakness, Denies numbness, Denies radiating pain into limb and Denies tingling Neuro Denies abnormal gait, Denies dizziness, Denies frequent falls, Denies numbness, Denies tingling and Denies weakness Endo Denies fatigue and Denies palpitations Physical Exam Vital Signs: Last Vital Signs Pulse 55 02/25/25 11:07 BP 120/64 02/25/25 11:07 BMI result Body Mass Index 27.2 GENERAL APPEARANCE: in no acute distress, pleasant. NECK: no carotid bruit, no jugular venous distention. SKIN: no suspicious lesions, warm and dry. HEART: Systolic murmur, irregular rate and rhythm. LUNGS: clear to auscultation bilaterally. ABDOMEN: soft, nontender. EXTREMITIES: No significant peripheral edema. PERIPHERAL PULSES: equal. NEUROLOGIC: No gross deficits, AAO X 3 Assessment & Plan Assessment & Plan (1) Essential hypertension: Code(s): I10 - Essential (primary) hypertension Category: Medical (2) Aortic stenosis: Comment: mild to moderate 2022 Code(s): I35.0 - Nonrheumatic aortic (valve) stenosis Category: Medical (3) Cardiac amyloidosis: Code(s): E85.4 - Organ-limited amyloidosis; I43 - Cardiomyopathy in diseases classified elsewhere Category: Medical Plan [age] year gentleman who is here for follow-up. He has congestive heart failure and recent echocardiography has shown EF of 40-45%. There is small pericardial effusion along with atrial enlargement. 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 He was started on Tafamidis but it was too expensive for him to afford and currently has not started the medication. He was referred for heart failure assessment at [facility] and we will be seeing a heart failure specialist there. [facility] for [facility]. Hopefully there are some options available for him. Clinically euvolemic currently. He will continue same medications for now. On chronic Coumadin for permanent atrial fibrillation. Thank you for allowing me to participate in the care of your patient. Please feel free to contact me if you have any questions. 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
[2025-02-25 11:07] VITALS: BP 120/64; PULSE 55; BMI 27.2
--- OUTSIDE RECORDS SUMMARY | 2025-02-25 12:52 | XMS_ITS | Patient Health Record ---
Author Organization [facility] Address [address] [place] [address] Care Team Providers Care Satellite Installation Technician Name Role Phone Moises Winters Jr [phone] Reason For Referral No Information Plan Of Treatment No Information
== END 2025-02-25 11:32 | disposition home or self-care (01) ==
LOC: HO.HCS 10:23
PROVIDERS: PCP Family Medicine; Visit Provider Internal Medicine Cardiovascular Disease
DX: I10 Essential (primary) hypertension (principal); I35.0 Nonrheumatic aortic (valve) stenosis; E85.4 Organ-limited amyloidosis; I43 Cardiomyopathy in diseases classified elsewhere
CPT/HCPCS: 99214

== ENCOUNTER 2025-03-05 08:02 | Outpatient (AMB) | payer BC, SELFPAY ==
[2025-03-05 08:10] LABS: Prothrombin Time Whole Bld POC 29.6 sec (11.1-13.5); ~PT, ~INR - Anti Coag Clinic 2.5 (0.9-1.1)
--- OUTSIDE RECORDS SUMMARY | 2025-03-05 08:13 | XMS_ITS | Clinical Summary ---
Author Organization [facility] Address [address] [place] [address] Phone Care Team Providers Care Manager Labor Delivery Name Role Phone Patrick Muniz MD Primary Care Provider [phone] Allergies Active Allergy Reactions Criticality Noted Date [...] topic Insurance [facility] Care Teams Manager Labor Delivery Relationship Specialty Start Date End Date Patrick Muniz MD [address] [address] PCP - General Family Medicine 10/21/24
--- NOTE | 2025-03-05 08:18 | MHC.OFFVISCO ---
Intake Intake Visit Reasons: Anticoagulation Allergies hydralazine (Hydralazine) Allergy (Unknown, Verified 03/05/25 08:18) SEVERE HEADACHE Medication List - Last Reconciled 03/05/25 by Elisa Jon RN blood sugar diagnostic (OneTouch Ultra Test strips) USE 1 STRIP DIRECTED TO CHECK BLOOD GLUCOSE TWICE DAILY FOR DIABETES furosemide (Lasix) 40 mg PO DAILY glipizide ER 5 mg PO DAILY 90 days lancets One Touch Ultra Test Strips As directed to test blood sugar twice a day. Ninety day supply levothyroxine 125 mcg PO DAILY@0600 90 days meclizine 12.5 mg PO BID-QID PRN metoprolol succinate ER 25 mg PO DAILY 90 days OneTouch UltraSoft 2 Lancet (lancets) check BG once daily NS spironolactone 25 mg PO DAILY tadalafil 5 mg PO DAILY 90 days tamsulosin 0.4 mg PO BEDTIME 90 days trazodone 25 mg (1/2 x 50 mg) PO BEDTIME PRN 30 days vibegron (Gemtesa) 75 mg PO DAILY Held on 02/09/25. Instructions: COST warfarin 4 mg See Protocol PO DAILY@1800 Nursing Note INR: 2.5 in therapeutic range Medications and supplements reviewed No changes in health, diet, medications, or supplements, Denies any signs and symptoms of bleeding or bruising or clotting. Bleeding, bruising, clotting discussed Nutritional guidance given Dose: 2MG SUN, SUN, SUN/ 4MG X 4 DAYS F/U INR: 2 WEEKS Patient verbalizes understanding of instructions given Anti-Coag Initial Assessment Social Hx Patient Tobacco Use Status: Former Tobacco user alcohol intake: former Alcohol intake frequency: does not drink Coding Level of Care Code Est Patient Level 1 Diagnoses Current use of anticoagulant therapy Z79.01 Results AMB INR Fingerstick AMB INR Fingerstick 2.5 Last Edit by Elisa Jon RN on 03/05/25 08:13 MANUAL ENTRY Assessment & Plan Assessment & Plan (1) Current use of anticoagulant therapy: Comment: critical high INR Code(s): Z79.01 - [facility] (current) use of 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
== END 2025-03-05 08:21 | disposition home or self-care (01) ==
LOC: HO.ACS 08:02
PROVIDERS: PCP Family Medicine; Visit Provider Internal Medicine Medical Oncology
DX: Z79.01 Long term (current) use of anticoagulants (principal)

== ENCOUNTER → 2025-03-05 08:02 | Outpatient (BNVA) | payer BC, SELFPAY | PROVIDERS: PCP Family Medicine; Visit Provider Internal Medicine Medical Oncology | DX: I48.0 Paroxysmal atrial fibrillation (principal); Z79.01 Long term (current) use of anticoagulants; Z51.81 Encounter for therapeutic drug level monitoring | CPT/HCPCS: 85610; 99211 ==

== ENCOUNTER 2025-03-12 07:57 | Outpatient (AMB) | payer BC, SELFPAY ==
--- OUTSIDE RECORDS SUMMARY | 2025-03-12 08:01 | XMS_ITS | Clinical Summary ---
Author Organization [facility] Address [address] [place] [address] Phone Care Team Providers Care Garment Supervisor Name Role Phone Patrick Muniz MD Primary Care Provider [phone] Allergies Active Allergy Reactions Criticality Noted Date [...] this topic Insurance [facility] Care Teams Garment Supervisor Relationship Specialty Start Date End Date Patrick Muniz MD [address] [address] PCP - General Family Medicine 10/21/24
--- OUTSIDE RECORDS SUMMARY | 2025-03-12 08:01 | XMS_ITS | Patient Health Record ---
Author Organization [facility] Address [address] [place] [address] Care Team Providers Care Marine Service Manager Name Role Phone Moises Winters Jr Reason For Referral No Information Plan Of Treatment No Information
--- NOTE | 2025-03-12 08:17 | MHC.OFFVIS ---
Vital Signs 03/12/25 08:18 Height 5 ft 6 in Weight 169 lb 12.095 oz BMI 27.4 BP 124/52 L Blood Pressure Location Lt brachial Position Sitting Pulse 55 Pulse Source Pulse Oximeter Pulse Oximetry (%) 99 Oxygen Delivery Method Room Air Intake Visit Reasons: COPD Screening Nurse Required: No Accompanied by: Self / Same As Patient Allergies hydralazine (Hydralazine) Allergy (Unknown, Verified 03/12/25 08:20) SEVERE HEADACHE HPI Comments Details: The patient is an 89 [id number] gentleman, [place] , who is presenting with the normal CT scan of the chest. The patient denies any respiratory complaints. He denies any shortness of breath or cough. He denies any night sweats or any weight loss. He has always been involved with his martial arts and tries to stay active. 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 The patient did have a CT scan of the chest recently which was personally by me. 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 I did review his previous CT scan from 2017 in the right hemidiaphragm elevation is chronic. I he does state when he was young he did fall from about 8-12 feet and landed on the right side. we did speak about different conditions that can result in the elevation of the diaphragm. But at this point the patient is asymptomatic and based on the chronicity I would not do any further testing. The patient also has evidence of pulmonary nodules. The larger nodule is in the calcified consistent with granulomatous disease. the patient did spend time around the world as part of the [place]. Therefore he is at risk for development of latent tuberculosis. He denies ever been tested for tuberculosis that he is aware of. it is reassuring that the pulmonary nodules have not significantly changed when compared to 2017. the patient does not have any significant symptoms do from a respiratory status so therefore will undergo blood work to assess the granulomas including rule out tuberculosis. 11/29/2021 the patient is here for a pulmonary follow-up visit. Overall the patient has been doing well. He did look back to see if he had any injuries to his right chest. He states that more than 20 years ago he had 2 large breaks on his chest that were broken during a martial arts exhibition. From a respiratory status is not holding him back he still exercising walking regularly. He still practicing martial arts. We did look at the blood work including a positive TB spot suggesting latent tuberculosis with his calcified pulmonary nodules. He denies any symptoms of weight loss night sweats hemoptysis or cough at this time. Will plan to follow up the pulmonary nodules in 6 months from now. If the patient develops any worsening symptoms prior to that is to call for an earlier appointment. He also document some wheezing at times when he walks. But is very transient and goes away on its own. The patient was offered a rescue inhaler but he really does not want 1 since he is taking so many medications already. I did encourage him to call the office if he develops any worsening respiratory symptoms prior to the next appointment. 05/24/2022 the patient is here for a pulmonary follow-up visit. Overall the patient is doing well from a respiratory status. He does complaint of some right upper quadrant abdominal discomfort at times. He is wondering if it is from the lungs. At this point he does not have the discomfort. It comes and goes and it radiates to the back. It about moderate severity when it does happen. We did review his last CT scan of the chest demonstrating stable pulmonary nodules. The patient does have an elevated right hemidiaphragm likely secondary to a traumatic injury in the past. In the meantime the abdominal discomfort that he is describing is pointing to his gallbladder way a significant amount of stones. At this point the patient is asymptomatic. If the patient develops any further right upper quadrant abdominal discomfort he is to get evaluated for potential gallbladder disease. It is also reassuring that the pulmonary nodules are not changing. Therefore, I will not order a repeat CT scan at this time. If however the patient develops any new or concerning symptoms we can always re-evaluate at that time. 05/08/2023 the patient is here for a pulmonary follow-up visit. Overall the patient is doing fairly well. Still complaining of right-sided chest discomfort. Is off and on. Typically with sudden movements it can be more significant. Right now she was better although he did precipitate a little bit by doing his martial arts movements. 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 We did review his last chest x-ray that she had back in October 2022 demonstrating elevated hemidiaphragm which is chronic for him. Likely related to trauma which is blood trauma back when he was in high school. The patient's last CT scan was a year ago and it demonstrated stable pulmonary nodules. We did not have to follow-up with additional CT scans at this time unless his discomfort worsens. We did talk about [id number] medications to consider such as turmeric or glucosamine chondroitin 10 for his arthritis. The patient will follow up with his primary care doctor as well. Will follow-up in a year's time if the patient has any worsening symptoms prior to the next visit he will should call for earlier assessment. 05/14/2024 the patient is here for a pulmonary follow-up visit. Overall he is doing well from a respiratory status. He has been having some right-sided discomfort in addition to that some back pain. He has been having also noticing some shortness of breath with activity specially going up a flight of stairs. He is also working with primary care because of significant back pain. Sometimes he feels like a pulse in the back the lower back area. On exam he does have some crackles in the right base which are new. Therefore have him get an x-ray of the chest in addition to lumbar x-ray to make sure with the back. The patient right now has a rescue inhaler that he can use as needed. He will follow-up in 4-6 months. If she has any issues prior to that we can always see him sooner. If his abnormal findings on the x-ray then I will let him know about additional imaging studies. 11/12/2024 the patient is here for hospital follow-up visit. He was recently hospitalized at [facility] for what appeared to be congestive heart failure and also elevated cardiac enzymes. He was transferred to [facility] where he had a cardiac catheterization. He did not require PCI. His medications were adjusted. His echocardiogram demonstrates significant diastolic dysfunction with slightly decreased EF. The patient has also some renal insufficiency making it difficult for his diuresis. He did get discharged and he was supposed to continue the Lasix but he did not slate picker the prescription. He has been noticing some increased weight gain and significant lower extremity edema. He is going to start the Lasix now. In the meantime he does have daytime drowsiness also has cardiovascular risk factors AFib and evidence of pulmonary hypertension on his echo. Likely secondary. Will go ahead and request a in last sleep study this time. Again, his Berclair score is 11/24. He will follow-up after the sleep study. In the meantime he knows to start the diuretic soon as possible. 03/12/2025 the patient is here for a pulmonary follow-up visit. Overall the patient is doing okay from respiratory status denies any significant shortness of breath. He has been in the cardioprotective medication he has been doing well from a cardiac standpoint. He states that he is doing okay with his sleep at this time. Denies any significant daytime drowsiness. He opted on not having the sleep study. The patient though will be okay having an overnight oximetry on room air to further assess his heart failure. In the meantime his last chest x-ray was back from October 2024 which we personally reviewed. The patient has calcified pulmonary nodules suggesting granulomas and has the elevated right hemidiaphragm. He has appeared to be all chronic findings. No need for any additional imaging studies at this time. The patient will continue with his current regimen and will follow-up sometime in the springtime. Meantime if he demonstrates any evidence of hypoxia at night the patient will benefit from oxygen supplementation while sleeping. Will address that once we have the results. Will follow-up in 6-8 months if he has any issues prior to this she can always call for an earlier assessment and recommendations. [facility] Medical History Lower extremity edema Sialadenitis Benign cyst of skin Chest pain RUQ pain Wheezing Elevated diaphragm (~10/13/24) Pulmonary nodules Aortic stenosis Edema CAD (coronary artery disease) Diabetes type 2, controlled Elevated prostate specific antigen between 10 and 19 ng/ml Atrial fibrillation [place]'s disease Elevated morning serum cortisol level Surgical History History of cardiac cath Hx of tonsillectomy Hx of colonoscopy Family History Father Colon cancer Mother HTN (hypertension) Type 2 diabetes mellitus Brother No problems noted. Sister No problems noted. Son No problems noted. Son No problems noted. Son No problems noted. Daughter No problems noted. Daughter No problems noted. Social History Household Members: None Housing: Apartment Alcohol intake: former Year quit: 1979 Comment: pt politley refusing assistance to BR and alarms Patient Tobacco Use Status: Former Tobacco user Years Smoked: 45+ e-Cigarette/Vaping Use: Never Used Second Hand Smoke Exposure: No Advance Directives Date on File: 10/14/24 service: Yes Current occupational status: retired Current occupational exposures/hazards: No Cognitive needs: No Hearing needs: Yes Vision needs: No Review of Systems Const Denies chills, Denies fatigue, Denies fever(s), Denies frequent falls, Denies weakness and Reports weight gain ENT Denies dizziness Card Denies chest pain, Reports leg edema, Denies lightheadedness, Denies palpitations, Denies dyspnea and Reports dyspnea on exertion Resp Denies cough, Denies dyspnea and Reports dyspnea on exertion GI Denies hematochezia Musc Reports as per HPI, Denies abnormal gait, Reports arthralgias, Reports joint swelling, Reports limited range of motion, Denies muscle weakness, Denies numbness, Denies radiating pain into limb and Denies tingling Neuro Denies abnormal gait, Denies dizziness, Denies frequent falls, Denies numbness, Denies tingling and Denies weakness Endo Denies fatigue and Denies palpitations Physical Exam Vital Signs: Last Vital Signs Pulse 55 03/12/25 08:18 BP 124/52 L 03/12/25 08:18 Pulse Ox 99 03/12/25 08:18 Oxygen Delivery Method Room Air 03/12/25 08:18 BMI result Body Mass Index 27.4 Const General: alert Neck Neck: Yes normal visual inspection, Yes full ROM and Yes no lymphadenopathy Chest Chest palpation & inspection: normal inspection of the chest Resp Effort & Inspection: normal respiratory effort Auscultation: clear to auscultation bilaterally Cardio Rate: regular rate Rhythm: regular rhythm Heart sounds: S1 normal heart sound present and S2 normal heart sound present GI Palpation (GI): Soft to palpation and nontender Auscultation: normal bowel sounds Skin General skin exam: rashes and/or lesions noted Extrem General: No clubbing, No cyanosis and Yes edema Assessment & Plan Assessment & Plan (1) Pulmonary nodules: Code(s): R91.8 - Other nonspecific abnormal finding of lung field Category: Medical (2) Elevated diaphragm: Onset Date: ~10/13/24 Comment: Right side. Likely trauma. Asymptomatic Code(s): J98.6 - Disorders of diaphragm Category: Medical (3) Heart failure: Code(s): I50.9 - Heart failure, unspecified Category: Medical Qualifiers: Heart failure chronicity: chronic Heart failure type: combined systolic and diastolic Qualified Code(s): I50.42 - Chronic combined systolic (congestive) and diastolic (congestive) heart failure (4) Lower extremity edema: Code(s): R60.0 - Localized edema Category: Medical Plan Consider PEDRO as needed request overnight oximetry diuresis as tolerated F/U 6-8 months Orders: Orders Overnight Pulse Oximetry Today Coding Level of Care Code Est Pt Level 4 (44755) Complex EM visit Add On G2211 Diagnoses Pulmonary nodules R91.8 Elevated diaphragm J98.6 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 Heart failure chronicity: chronic Heart failure type: combined systolic and diastolic Lower extremity edema R60.0 Time Spent (min) 16
[2025-03-12 08:18] VITALS: BP 124/52; PULSE 55; O2SAT 99; BMI 27.4
== END 2025-03-12 08:43 | disposition home or self-care (01) ==
PROVIDERS: PCP Family Medicine; Visit Provider Hospitalist
DX: R91.8 Other nonspecific abnormal finding of lung field (principal); J98.6 Disorders of diaphragm; I50.42 Chronic combined systolic (congestive) and diastolic (congestive) heart failure; R60.0 Localized edema
CPT/HCPCS: 99214

== ENCOUNTER 2025-03-16 09:54 | Outpatient (REF) | payer BC, SELFPAY ==
--- OUTSIDE RECORDS SUMMARY | 2025-03-16 11:24 | XMS_ITS | Clinical Summary ---
Author Organization [facility] Address [address] [place] [address] Phone Care Team Providers Care Medical Laboratory Scientist Name Role Phone Patrick Muniz MD Primary Care Provider [phone] Allergies Active Allergy Reactions Criticality Noted Date [...] Insurance [facility] Care Teams Medical Laboratory Scientist Relationship Specialty Start Date End Date Patrick Muniz MD [address] [address] PCP - General Family Medicine 10/21/24
[2025-03-16 11:46] LABS: Anion Gap 13 (12-20); Blood Urea Nitrogen 46 mg/dL (9-16); Calcium 9.8 mg/dL (8.4-10.2); Carbon Dioxide 24 mmol/L (22-29); Chloride 106 mmol/L (96-108); Estimated Glomerular Filt Rate 35; Potassium 5.1 mmol/L (3.3-5.1); Sodium 138 mmol/L (135-145)
== END 2025-03-16 09:55 | disposition home or self-care (01) ==
LOC: HO.LAB 09:54
PROVIDERS: Family Medicine; Absent Provider Internal Medicine; Visit Provider Internal Medicine Cardiovascular Disease
DX: Z00.00 Encounter for general adult medical examination without abnormal findings (principal); N18.31 Chronic kidney disease, stage 3a
CPT/HCPCS: 36415; 80048; 83880

== ENCOUNTER 2025-03-19 08:00 | Outpatient (AMB) | payer BC, SELFPAY ==
--- OUTSIDE RECORDS SUMMARY | 2025-03-19 08:05 | XMS_ITS | Clinical Summary ---
Author Organization [facility] Address [address] [place] [address] Phone Care Team Providers Care Rubber Vulcanizing Machine Operator Name Role Phone Patrick Muniz MD Primary Care Provider [phone] Allergies Active Allergy Reactions Criticality Noted Date [...] this topic Insurance [facility] Care Teams Rubber Vulcanizing Machine Operator Relationship Specialty Start Date End Date Patrick Muniz MD [address] [address] PCP - General Family Medicine 10/21/24
--- OUTSIDE RECORDS SUMMARY | 2025-03-19 08:06 | XMS_ITS | Patient Health Record ---
Author Organization [facility] Address [address] [place] [address] Care Team Providers Care Joint Maker Machine Name Role Phone Moises Winters Jr Reason For Referral No Information Plan Of Treatment No Information
[2025-03-19 08:10] LABS: Prothrombin Time Whole Bld POC 36.1 sec (11.1-13.5); ~PT, ~INR - Anti Coag Clinic 3.0 (0.9-1.1)
--- NOTE | 2025-03-19 08:18 | MHC.OFFVISCO ---
Intake Intake Visit Reasons: Anticoagulation Allergies hydralazine (Hydralazine) Allergy (Unknown, Verified 03/19/25 08:04) SEVERE HEADACHE Medication List - Last Reconciled 03/19/25 by Elisa Jon RN blood sugar diagnostic (OneTouch Ultra Test strips) USE 1 STRIP DIRECTED TO CHECK BLOOD GLUCOSE TWICE DAILY FOR DIABETES furosemide (Lasix) 40 mg PO DAILY glipizide ER 5 mg PO DAILY 90 days lancets One Touch Ultra Test Strips As directed to test blood sugar twice a day. Ninety day supply levothyroxine 125 mcg PO DAILY@0600 90 days meclizine 12.5 mg PO BID-QID PRN metoprolol succinate ER 25 mg PO DAILY 90 days OneTouch UltraSoft 2 Lancet (lancets) check BG once daily NS rosuvastatin 20 mg PO DAILY spironolactone 25 mg PO DAILY tadalafil 5 mg PO DAILY 90 days tamsulosin 0.4 mg PO BEDTIME 90 days trazodone 25 mg (1/2 x 50 mg) PO BEDTIME PRN 30 days vibegron (Gemtesa) 75 mg PO DAILY Held on 02/09/25. Instructions: COST warfarin 4 mg See Protocol PO DAILY@1800 Nursing Note INR: 3.0 in therapeutic range Medications and supplements reviewed- Print out of EMR med list to review with his daughter there is question about his cholesterol med No changes in health, diet, medications, or supplements, Denies any signs and symptoms of bleeding or bruising or clotting. Bleeding, bruising, clotting discussed Nutritional guidance given - enc cooked greens today and weekly Dose: 2mg x 3 days/ 4mg x 4 days F/U INR: 2 weeks Patient verbalizes understanding of instructions given Anti-Coag Initial Assessment Social Hx Patient Tobacco Use Status: Former Tobacco user alcohol intake: former Alcohol intake frequency: does not drink Coding Level of Care Code Est Patient Level 1 Diagnoses Current use of anticoagulant therapy Z79.01 Assessment & Plan Assessment & Plan (1) Current use of anticoagulant therapy: Comment: critical high INR Code(s): Z79.01 - skilled nursing (current) use of 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
== END 2025-03-19 08:22 | disposition home or self-care (01) ==
LOC: HO.ACS 08:00
PROVIDERS: PCP Family Medicine; Visit Provider Internal Medicine Medical Oncology
DX: Z79.01 Long term (current) use of anticoagulants (principal)

== ENCOUNTER → 2025-03-19 08:00 | Outpatient (BNVA) | payer BC, SELFPAY | PROVIDERS: PCP Family Medicine; Visit Provider Internal Medicine Medical Oncology | DX: Z79.01 Long term (current) use of anticoagulants (principal) | CPT/HCPCS: 85610; 99211 ==

== ENCOUNTER 2025-04-01 07:35 | Outpatient (AMB) | payer BC, SELFPAY ==
--- OUTSIDE RECORDS SUMMARY | 2025-04-01 07:37 | XMS_ITS | Patient Health Record ---
Author Organization [facility] Address [address] [place] [address] Care Team Providers Care Pad Assembler Name Role Phone Moises Winters Jr [phone] Reason For Referral No Information Plan Of Treatment No Information
--- OUTSIDE RECORDS SUMMARY | 2025-04-01 07:37 | XMS_ITS | Continuity of Care Document ---
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 Occasional imbalance, likely age-related. History of arthritis affecting multiple joints. Plan: The patient is advised to bring his hearing aids to the OR for optimization, ensuring they are adjusted to match his current hearing levels. He is encouraged to use the hearing aids consistently to mitigate risks associated with untreated hearing loss, including falls, accidents, and cognitive decline. Counseling is provided on the importance of hearing aids being worn daily and the need to communicate specific concerns, such as background noise issues, to the OR audiology team for further adjustments. The patient is advised to avoid meclizine, as it is not appropriate for his symptoms and may worsen balance issues. He is encouraged to remain physically active, including walking and participating in balance-focused exercise programs at local gyms or the [facility], to maintain coordination and muscular strength. The importance of staying active to prevent further decline in balance and mobility is emphasized. Patient education is provided regarding the connection between untreated hearing loss and balance issues, as well as the benefits of hearing aids in improving overall quality of life. Follow-up with the OR audiology team is recommended to ensure proper hearing aid functionality and adjustment. [email or web address] Not available 03/23/2025 11:28:46 Plan of Treatment Reminders Order Date Submit Date Provider Last Modified By Organization Details Last Modified Time Details Appointments None record ed. Lab None record ed. Referral None record ed. Procedures None record ed. Surgeries None record ed. Imaging None record ed. Medication Orders None record ed. Patient TargetsNo targets recorded. Patient Instructions Encounter Date Encounter Id Patient Instructions Last Modified By Organization Details Last Modified Time 03/23/2025 [id number] Bring hearing aids to the OR for optimization. Use hearing aids daily to improve hearing and reduce risks associated with untreated hearing loss. Communicate specific concerns about hearing aids, such as background noise issues, to the OR audiology team. Avoid meclizine. Stay physically active, including walking and participating in balance-focused exercise programs. Follow up with the OR audiology team for hearing aid adjustments. [email or web address] Not available 03/23/2025 11:28:46 Please note: Par ts of this encounter note have been generated by AI based on audio conversation. Patient consent was required prior to utilizing this technology. Content review was required prior to finalizing the note. [email or web address] Not available 03/23/2025 11:28:46 Reason for Referral None Reported. Results Created Date Observation Date Name Description Value Unit Range Abnormal Flag Note LastModifiedBy Organization Detail LastModifiedTime 03/23/20 25 audio gram No observ ation record ed. BARCODE Not Available 2024 13:28:26 Result Notes None recorded. Problems Name Problem SNOMED Code Status Onset Date Resolution Date Notes Provider Name and Address Organization Details Recorded Time Sensorineural hearing loss of bilateral ears 662447611 Active 2024 ANNEMARIE SANCHEZ [address] [place] [address], [place], [address], [facility] - [facility] 5 09:22:54 Dizziness 328361071 Active 2024 ANNEMARIE SANCHEZ [address] [place] [address], [place], [address], [facility] - [facility] 5 09:23:03 Unsteady when standing 592305716 Active 2024 ANDREW REBOLLEDO MD [address] [address], [place], [address], [facility] - [facility] 5 11:31:14 Problem Notes None recorded. Procedures Surgical History Date Name Laterality Status Provider Name and Address Organization Details Recorded Time 03/23/20 Comp Audio with Tymps - 84576 & 89055 completed MILI HARRIS, [facility] [address] [facility],[place] [address], [place], [address], [facility] - [facility] 03/23/2025 09:22:47 tonsillectomy completed Veronica Yeh [place] - [facility] 03/23/2025 09:47:48 Imaging Results None recorded. Procedure Notes None recorded. Medical Equipment None Reported. Allergies Allergen ID Allergen Name Allergen Category Reaction Reaction Severity Criticality Documentation Date Start Date Code Code System Note Provider Name and Address Organization Details Recorded Time 681760 hydralazi ne medicatio n Not available Not available Not available 03/22/20252021 5470 RxNorm Not Available [place] - External Data Service - prod 18:04:19 Medications Name Sig Start Date Stop Date Status Note LastModified by Organization Details LastModified Time furosemide 40 mg tablet TAKE ONE TABLET BY MOUTH EVERY DAY active Not Available Not Available No t Available trazodone 50 mg tablet TAKE ONE-HALF TABLET BY MOUTH EVERY EVENING AT BEDTIME NEEDED FOR SLEEP active Not Available Not Available No t Available pravastatin 40 mg tablet TAKE ONE TABLET BY MOUTH EVERY DAY 03/23 completed Not Available Not Available Not Available isosorbide mononitrate ER 30 mg tablet,exte nded release 24 hr TAKE 1 TABLET BY MOUTH EVERY DAY active Not Available Not Available No t Available glipizide ER 5 mg tablet, extended release 24 hr TAKE ONE TABLET BY MOUTH EVERY DAY active Not Available Not Available No t Available meclizine 12.5 mg tablet TAKE 1 TABLET BY MOUTH TWO TO FOUR TIMES DAILY NEEDED FOR DIZZINESS 03/23 completed Not Available Not Available Not Available amlodipine 2.5 mg tablet TAKE ONE TABLET BY MOUTH EVERY DAY 03/23 completed Not Available Not Available Not Available amlodipine 5 mg tablet TAKE ONE TABLET BY MOUTH EVERY DAY active Not Available Not Available No t Available spironolact one 25 mg tablet TAKE ONE TABLET BY MOUTH EVERY DAY active Not Available Not Available No t Available tamsulosin 0.4 mg capsule TAKE ONE CAPSULE BY MOUTH DAILY AT BEDTIME active Not Available Not Available No t Available OneTouch Ultra Test strips USE 1 STRIP DIRECTED TO CHECK GLUCOSE TWICE DAILY FOR DIABETES active Not Available Not Available No t Available amlodipine 10 mg tablet TAKE ONE TABLET BY MOUTH EVERY DAY 03/23 completed Not Available Not Available Not Available glipizide ER 2.5 mg tablet, extended release 24 hr TAKE ONE TABLET BY MOUTH EVERY DAY active Not Available Not Available No t Available levothyroxi ne 125 mcg tablet TAKE ONE TABLET BY MOUTH EVERY DAY AT 6AM active Not Available Not Available No t Available warfarin 2 mg tablet TAKE TWO TABLETS BY MOUTH EVERY DAY active Not Available Not Available No t Available aspirin 81 mg chewable tablet CHEW AND SWALLOW ONE TABLET BY MOUTH EVERY DAY active Not Available Not Available No t Available bumetanide 1 mg tablet TAKE ONE TABLET BY MOUTH EVERY OTHER DAY active Not Available Not Available No t Available lisinopril 5 mg tablet TAKE ONE TABLET BY MOUTH EVERY DAY active Not Available Not Available No t Available metoprolol succinate ER 25 mg tablet,exte nded release 24 hr TAKE ONE TABLET BY MOUTH EVERY DAY active Not Available Not Available No t Available rosuvastati n 20 mg tablet TAKE ONE TABLET BY MOUTH EVERY DAY AT BEDTIME active Not Available Not Available No t Available tadalafil 5 mg tablet TAKE ONE TABLET BY MOUTH EVERY DAY FOR BPH active Not Available Not Available No t Available tadalafil 20 mg tablet TAKE ONE TABLET BY MOUTH EVERY DAY NEEDED FOR SEXUAL ACTIVITY. ON DEMAND MEDICATIO N. TAKE 60MIN BEFORE INTENDED ACTIVITY. 03/23 completed Not Available Not Available Not Available OneTouch UltraSoft 2 Lancet 30 gauge USE 1 LANCET TO CHECK BLOOD GLUCOSE TWICE DAILY DIRECTED. active Not Available Not Available No t Available Vitals None Recorded Social History None recorded. Functional Status None recorded. Mental Status None recorded. Family History Nothing Reported. Medical History Condition Response Heart Problems Y Diabetes Y Hypertension Y Past Encounters Encounter ID Performer Location Encounter Start Date Encounter Closed Date Diagnosis/Indication Diagnosis SNOMED-CT Code Diagnosis ICD10 Code Diagnosis IMO Codes Diagnosis Note [id number] ANDREW REBOLLEDO MD [facility] [address] [address] 03/23/2025 09:39:27 03/23/2025 23:29:40 Sensorineural hearing loss of bilateral ears 412022499 H90.3 [id number] Audiologic al evaluation results: 03/23/2025 Right ear: Mild sloping to moderately severe sensorineu ral hearing loss with good word recognitio n. Left ear: Mild sloping to moderately severe sensorineu ral hearing loss with good word recognitio n. Tympanomet ry: Right Ear:Type A Left Ear:Type A Unsteady w hen standing [id number] R26.81 [id number] Health Concerns Section Related Observation LastModified by Organization Detai ls LastModified Time None Recorded Concern Status LastModified by Organization Details LastModified Time None Recorded Payers Encounter Date Sequence Insurance Name Policy Number Policy Witt Covered Member ID Witt Member ID Guarantor Name 03/23/2025 1 [facility]: MEDICARE HMO BLUE (MEDICARE REPLACEMENT HMO) [id number] Boston Rivers Sr [id number] Boston Rivers Notes Date Note Type Note Provider Name and Address Organization Details Recorded Time 03/23/2025 text/html 89-year-old male with diabetes, hypertension who was seen by his primary care physician back in July. There was an abnormal physical exam on the right ear as well as some complaints of dizziness. Boston Rivers Sr is an 89-year-old male who presents with concerns regarding balance and hearing. He reports experiencing occasional episodes of imbalance, described as feeling off balance without associated dizziness. These episodes occur approximately once every few weeks, typically lasting only a few seconds, and are noted when he is standing or walking. He denies experiencing imbalance while seated. Regarding hearing, he estimates his hearing ability at 90%, though his son suggests it may be closer to 60-70%. He has difficulty understanding fast speech and struggles in group settings or noisy environments. He owns hearing aids provided by the OR but admits to rarely using them, citing issues with sound quality, such as feeling like in a tunnel. He has had these devices for over two years, including a recent upgrade to rechargeable models. He also mentions a history of arthritis affecting his neck, shoulders, and wrists, as well as a prior hematoma in the shoulder region. 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 He denies taking meclizine for dizziness, noting previous advice to avoid it due to its ineffectiveness and potential adverse effects. ANDREW REBOLLEDO MD [address] [place] [address], [phone], [place] [facility] 03/23/2025 11:31:43
--- OUTSIDE RECORDS SUMMARY | 2025-04-01 07:37 | XMS_ITS | Data Portability ---
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 Occasional imbalance, likely age-related. History of arthritis affecting multiple joints. Plan: The patient is advised to bring his hearing aids to the [place] for optimization, ensuring they are adjusted to match his current hearing levels. He is encouraged to use the hearing aids consistently to mitigate risks associated with untreated hearing loss, including falls, accidents, and cognitive decline. Counseling is provided on the importance of hearing aids being worn daily and the need to communicate specific concerns, such as background noise issues, to the [place] audiology team for further adjustments. The patient is advised to avoid meclizine, as it is not appropriate for his symptoms and may worsen balance issues. He is encouraged to remain physically active, including walking and participating in balance-focused exercise programs at local gyms or the [facility], to maintain coordination and muscular strength. The importance of staying active to prevent further decline in balance and mobility is emphasized. Patient education is provided regarding the connection between untreated hearing loss and balance issues, as well as the benefits of hearing aids in improving overall quality of life. Follow-up with the [place] audiology team is recommended to ensure proper hearing aid functionality and adjustment. [email or web address] Not available 03/23/2025 11:28:46 Plan of Treatment [...] By Organization Details Last Modified Time 03/23/2025 [id number] Bring hearing aids to the [place] for optimization. Use hearing aids daily to improve hearing and reduce risks associated with untreated hearing loss. Communicate specific concerns about hearing aids, such as background noise issues, to the [place] audiology team. Avoid meclizine. Stay physically active, including walking and participating in balance-focused exercise programs. Follow up with the [place] audiology team for hearing aid adjustments. [email or web address] Not available 03/23/2025 11:28:46 Please note: Par ts of this encounter note have been generated by AI based on audio conversation. Patient consent was required prior to utilizing this technology. Content review was required prior to finalizing the note. [email or web address] Not available 03/23/2025 11:28:46 Reason for Referral [...] Time Sensorineural hearing loss of bilateral ears 000848200 Active 2024 ANNEMARIE SANCHEZ [address] [place] [address], [phone], [facility] - [facility] 5 09:22:54 Dizziness 502705532 Active 2024 ANNEMARIE SANCHEZ [address] [place] [address], [address], [facility] - [facility] 5 09:23:03 Unsteady when standing 024574476 Active 2024 ANDREW REBOLLEDO MD [address], [address], [facility] - [facility] 5 11:31:14 Problem Notes None recorded. Procedures Surgical History Date Name Laterality Status Provider Name and Address Organization Details Recorded Time 03/23/20 Comp Audio with Tymps - 05644 & 60491 completed MILI HARRIS, [facility] [address] [facility],[address] [address], [place], [address], [facility] - [facility] 03/23/2025 09:22:47 tonsillectomy completed Veronica Yeh [place] - [facility] 03/23/2025 09:47:48 Imaging Results None recorded. Procedure Notes None recorded. Medical Equipment None Reported. Allergies Allergen ID Allergen Name Allergen Category Reaction Reaction Severity Criticality Documentation Date Start Date Code Code System Note Provider Name and Address Organization Details Recorded Time 14320111 hydralazi ne medicatio n Not available Not [...] History Nothing Reported. Medical History Condition Response Diabetes Y Heart Problems Y Hypertension Y Past Encounters Encounter ID Performer Location Encounter Start Date Encounter Closed Date Diagnosis/Indication Diagnosis SNOMED-CT Code Diagnosis ICD10 Code Diagnosis IMO Codes Diagnosis Note [id number] ANDREW REBOLLEDO MD [facility] [address] [address] 03/23/2025 09:39:27 03/23/2025 23:29:40 Sensorineural hearing loss of bilateral ears [id number] H90.3 [id number] Audiologic al evaluation results: 03/23/2025 Right ear: Mild sloping to moderately severe sensorineu ral hearing loss with good word recognitio n. Left ear: Mild sloping to moderately severe sensorineu ral hearing loss with good word recognitio n. Tympanomet ry: Right Ear:Type A Left Ear:Type A Unsteady w hen standing 059214339 R26.81 [id number] Health Concerns Section Related Observation LastModified by Organization Detai ls LastModified Time None Recorded Concern Status LastModified by Organization Details LastModified Time None Recorded Advance Directives Directive None Recorded Payers Insurance Date Sequence Insurance Name Policy Number Policy Witt Covered Member ID Witt Member ID Guarantor Name 03/23/2025 1 [facility]: MEDICARE H[place] BLUE (MEDICARE REPLACEMENT HMO) [id number] Boston Rivers Sr [id number] Boston Rivers Notes Date Note Type [...] He owns hearing aids provided by the [place] but admits to rarely using them, citing [...] potential adverse effects. ANDREW REBOLLEDO MD [address] [place] [address], [address], [place] [facility] 03/23/2025 11:31:43
--- OUTSIDE RECORDS SUMMARY | 2025-04-01 07:37 | XMS_ITS | Clinical Summary ---
Author Organization [facility] Address [address] [place] [address] Phone Care Team Providers Care Housekeeping Supervisor Hotel Name Role Phone Patrick Muniz MD Primary Care Provider [phone] Allergies Active Allergy Reactions Criticality Noted Date [...] Insurance [facility] Care Teams Housekeeping Supervisor Hotel Relationship Specialty Start Date End Date Patrick Muniz MD [address] [address] PCP - General Family Medicine 10/21/24
[2025-04-01 07:41] LABS: Prothrombin Time Whole Bld POC 29.0 sec (11.1-13.5); ~PT, ~INR - Anti Coag Clinic 2.4 (0.9-1.1)
--- NOTE | 2025-04-01 07:49 | MHC.OFFVISCO ---
Intake Intake Visit Reasons: Anticoagulation Allergies hydralazine (Hydralazine) Allergy (Unknown, Verified 04/01/25 07:36) SEVERE HEADACHE Medication List - Last Reconciled 04/01/25 by Elisa Jon RN blood sugar diagnostic (OneTouch Ultra Test strips) USE 1 STRIP DIRECTED TO CHECK BLOOD GLUCOSE TWICE DAILY FOR DIABETES furosemide (Lasix) 40 mg PO DAILY glipizide ER 5 mg PO DAILY 90 days lancets One Touch Ultra Test Strips As directed to test blood sugar twice a day. Ninety day supply levothyroxine 125 mcg PO DAILY@0600 90 days meclizine 12.5 mg PO BID-QID PRN metoprolol succinate ER 25 mg PO DAILY 90 days OneTouch UltraSoft 2 Lancet (lancets) check BG once daily NS rosuvastatin 20 mg PO DAILY 90 days spironolactone 25 mg PO DAILY tadalafil 5 mg PO DAILY 90 days tamsulosin 0.4 mg PO BEDTIME 90 days trazodone 25 mg (1/2 x 50 mg) PO BEDTIME PRN 30 days vibegron (Gemtesa) 75 mg PO DAILY Held on 02/09/25. Instructions: COST warfarin 4 mg See Protocol PO DAILY@1800 Nursing Note ambulate to [facility] well, A+Ox3 c/o of wrist pain. States he has been having cardiac work ups EKGs ect. INR: 2.4 in therapeutic range *Medications and supplements reviewed- resumed a cholesterol med it is not clear if stopped one to start another 2 weeks ago rosuvastatin which can raise the INR * pt having cortisone inj righ wrist are due to pain 830 with ortho No changes in diet, or supplements, Denies any signs and symptoms of bleeding or bruising or clotting. Bleeding, bruising, clotting discussed Nutritional guidance given - enc to keep up weekly greens due to cholesterol med possibly raising the INR Dose: keep same for now 2mg x 3 days/ 4mg x 4 days F/U INR: 2 weeks due to cholesterol med delayed onset 04/15/25 Patient verbalizes understanding of instructions given Anti-Coag Initial Assessment Social Hx Patient Tobacco Use Status: Former Tobacco user alcohol intake: former Alcohol intake frequency: does not drink Coding Level of Care Code Est Patient Level 1 Diagnoses Current use of anticoagulant therapy Z79.01 Results AMB INR Fingerstick AMB INR Fingerstick 2.4 Last Edit by Elisa Jon RN on 04/01/25 07:41 Assessment & Plan Assessment & Plan (1) Current use of anticoagulant therapy: Comment: critical high INR Code(s): Z79.01 - halfway (current) use of 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
== END 2025-04-01 07:55 | disposition home or self-care (01) ==
LOC: HO.ACS 07:35
PROVIDERS: PCP Family Medicine; Visit Provider Internal Medicine Medical Oncology
DX: Z79.01 Long term (current) use of anticoagulants (principal)

== ENCOUNTER 2025-04-01 07:55 | Outpatient (AMB) | payer BC, SELFPAY ==
--- NOTE | 2025-04-01 08:24 | A.OFFVIS_ITS ---
Vital Signs 04/01/25 08:27 Height 5 ft 6 in Handedness Right Intake Visit Reasons: OV-Post status Right hand injection,-last 02/17/25 Intake Note: [place] 89 yr old right hand dominant male who is retired, presents today for his follow up visit for his right dequervain s/p injection with Dr Dangelo on 02/17/25. States injection made pain worse a few days later. States he has come into the office to ask for advise on what to take for pain. States he was told to try OTC medication and to use his brace but this has not helped. Patient also has a old brace that he uses however this brace doesn't support his thumb movement. Today he expresses after his injection his symptoms have increased. He says he has been avoiding using the right for anything due to it feeling as someone slammed something in the web of his right hand. He is having some tingling from the left thumb into the left index finger. Says he has not even been able to be very active. Allergies hydralazine (Hydralazine) Allergy (Unknown, Verified 04/01/25 08:26) SEVERE HEADACHE HPI HPI OV-Post status Right hand injection,-last 02/17/25: Details: [place] is an 89 year old right hand dominant Diabetic man who returns for his right De Quervain's tenosynovitis, S/P injection on 02/17/25 He complains of right radial sided wrist & thumb pain, which he says worsened after his injections. His pain is worse with pinching, gripping, & twisting activities. He found limited relief from heat or cold. He found little to no relief from OTC medication or his brace He also complains of occasional locking of his right small finger. He has a Hx of a left ring trigger finger. He has Diabetes, CKD, CAD, Afib, and a Hx of TIA. He is on Warfarin. His most recent HgA1c was 7.1% on 02/18/25. 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 He continues to perform his [place] daily for exercise. [facility]LY [facility] Medical History Lower extremity edema Sialadenitis Benign cyst of skin Chest pain RUQ pain Wheezing Elevated diaphragm (~10/13/24) Pulmonary nodules Aortic stenosis Edema CAD (coronary artery disease) Diabetes type 2, controlled Elevated prostate specific antigen between 10 and 19 ng/ml Atrial fibrillation [place]'s disease Elevated morning serum cortisol level Surgical History History of cardiac cath Hx of tonsillectomy Hx of colonoscopy Family History Father Colon cancer Mother HTN (hypertension) Type 2 diabetes mellitus Brother No problems noted. Sister No problems noted. Son No problems noted. Son No problems noted. Son No problems noted. Daughter No problems noted. Daughter No problems noted. Social History Household Members: None Housing: Apartment Alcohol intake: former Year quit: 1979 Comment: pt politley refusing assistance to BR and alarms Patient Tobacco Use Status: Former Tobacco user Years Smoked: 45+ e-Cigarette/Vaping Use: Never Used Second Hand Smoke Exposure: No Advance Directives Date on File: 10/14/24 service: Yes Current occupational status: retired Current occupational exposures/hazards: No Cognitive needs: No Hearing needs: Yes Vision needs: No Physical Exam Extrem Other: Evaluation of Right Upper Extremity: The patient is alert, oriented, and in no acute distress Neuro: Median, Ulnar, Radial nerves motor and sensory intact and sensation is normal to the tips of all digits Vascular: Cap refill brisk ROM: He can make a fist and extend all his digits Visible & palpable locking & catching of the small finger Not particularly Tender over the small finger A1 vesta Most tender over 1st dorsal compartment Positive Vale test on the right Negative Vale test on the left Prior to the Vale test the patient was demonstrating he was most tender in line with the 2nd metacarpal, but the Vale test definitely showed pain in line with the 1st dorsal compartment. No tenderness over the basal joint No tenderness over the MCP joint Thumb is ulnarly deviated at the MCP joint, which does not bother him Results AMB INR Fingerstick AMB INR Fingerstick 2.4 Last Edit by Elisa Jon RN on 04/01/25 07:41 Assessment & Plan Assessment & Plan (1) De Quervain's tenosynovitis, right: Code(s): M65.4 - Radial styloid tenosynovitis [de Quervain] Category: Medical (2) Trigger little finger of right hand: Code(s): M65.351 - Trigger finger, right little finger Category: Medical (3) Diabetes type 2, controlled: Code(s): E11.9 - Type 2 diabetes mellitus without complications Category: Medical (4) CAD (coronary artery disease): Comment: nonobstructive Code(s): I25.10 - Atherosclerotic heart disease of [place] coronary artery without angina pectoris Category: Medical (5) Atrial fibrillation: Code(s): I48.91 - Unspecified atrial fibrillation Category: Medical (6) Current use of anticoagulant therapy: Comment: critical high INR Code(s): Z79.01 - bed bug exterminator (current) use of 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 (7) CKD (chronic kidney disease) stage 3, GFR 30-59 ml/min: Code(s): N18.30 - Chronic kidney disease, stage 3 unspecified Category: Medical Qualifiers: Chronic kidney disease stage 3 subtype: stage 3a (GFR 45-59) Qualified Code(s): N18.31 - Chronic kidney disease, stage 3a Plan Assessment & Plan: 1. Right de Quervains tenosynovitis, S/P injection Date of injection: 02/17/25 This is his chief complaint today 2. Right small finger trigger finger Not particularly bothersome for him, and he does not want any treatment for this. I educated him about these conditions I discussed operative and non-operative treatment options The patient would like to proceed with surgery The risks and benefits of operative treatment were discussed with the patient and the patient wishes to proceed with surgery. These risks include, but are not limited to risk of damage to blood vessels, nerves, tendons, infection, recurrence, incomplete relief of preoperative symptoms, persistent pain, possi ble need for further surgery and the risks associated with regional blocks and anesthesia. The plan is to take the patient to the operating room sometime in the next few weeks for the following procedures: 1. Right 1st dorsal compartment release, under local All of the preoperative paperwork including the consent was reviewed today. All the patient's questions were answered. The patient understands that they will be contacted by our project scheduler soon to schedule this procedure He denies asthma, lung, issues He is a Diabetic, his most recent HgA1c was 7.1% on 02/18/25. He has CAD, AFib, Hx of TIA, CKD, and is on Warfarin Scribed for Coco Dangelo MD by Blayne Ramirez, certified court/medical interpreter, on 04/01/25 at 8:45 AM, EST. Coding Level of Care Code Est Pt Level 4 (70167) Diagnoses De Quervain's tenosynovitis, right M65.4 Trigger little finger of right hand M65.351 Diabetes type 2, controlled E11.9 CAD (coronary artery disease) I25.10 Atrial fibrillation I48.91 Current use of anticoagulant therapy Z79.01 Stage 3a chronic 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 Chronic kidney disease stage 3 subtype: stage 3a (GFR 45-59)
== END 2025-04-01 09:08 | disposition home or self-care (01) ==
PROVIDERS: PCP Family Medicine; Visit Provider Orthopaedic Surgery
DX: M65.4 Radial styloid tenosynovitis [de Quervain] (principal); M65.351 Trigger finger, right little finger; E11.9 Type 2 diabetes mellitus without complications; I25.10 Atherosclerotic heart disease of native coronary artery without angina pectoris; I48.91 Unspecified atrial fibrillation; Z79.01 Long term (current) use of anticoagulants; N18.31 Chronic kidney disease, stage 3a
CPT/HCPCS: 99214